=== PATIENT | male | born 1955 | race Caucasian/White ===

== ENCOUNTER 2019-10-04 02:52 | Emergency (ER) | payer MEDICARE, MEDICAID, SELFPAY ==
[2019-10-04 02:54] VITALS: BP 113/72; PULSE 98; RESP 28; TEMP 36.5; O2SAT 97; BMI 22.8
--- NOTE | 2019-10-04 03:12 | ED_ITS ---
Entered by Emiliana Quezada, acting as scribe for Nilesh Saenz DO Oct 04, 2019 02:52 HPI - SOB/Dyspnea General: Chief Complaint: Shortness of Breath/Dyspnea Stated Complaint: Resp Distress Time Seen by Provider: 10/04/19 03:12 Source: patient and EMS Mode of arrival: EMS History of Present Illness: HPI Narrative: 63 y/o male presents to the ED with complaint of SOB. Pt states he has had a cough and increased difficulty breathing. Pt states he does not normally wear oxygen at home, but he is requiring it tonight. MD elicited complaint: shortness of breath and cough Onset (ago): hour(s) (1-2) Timing: constant Severity: mild Associated symptoms: Reports orthopnea; Deny abdominal pain, chest pain, dizziness, nausea, palpitations or vomiting Review of Systems Const: Denies: chills Eyes: Denies: change in vision or blurry vision ENMT: Denies: painful swallowing, swelling of lips/tongue, bleeding gums, dental pain, Change in hearing, nose bleeds, post nasal drip or facial/sinus agustina n Card: Reports: shortness of breath when lying down; Denies: chest pain, palpitations or irregular heart rhythm Resp: Reports: shortness of breath and productive cough GI: Denies: abdominal pain, nausea, vomiting, rectal pain, blood in stool or black tarry stool : Denies: difficulty urinating, painful urination, urinary frequency, urinary urgency or blood in urine Musc: Denies: neck pain, back pain, redness or joint warmth Skin/Breast: Denies: rash, itching or redness Neuro: Denies: headache, dizziness, vertigo, confusion or seizure-like activity Psych: Denies: anxiety, visual hallucinations or auditory hallucinations PFSH ED PFSH: Statuses (acute, chronic, etc) shown below reflect problem list status as previously entered and may not be historically accurate Social History Smoking and tobacco status: current every day smoker Physical Exam Const: COMMON NORMALS: alert GENERAL APPEARANCE: well developed ORIENTATION/CONSCIOUSNESS: Yes awake, Yes oriented to person, Yes oriented to place and Yes oriented to time HENMT: COMMON NORMALS: normocephalic, external ears normal, external nose normal and moist oral mucous membranes HEAD & SCALP: normocephalic; no scalp tenderness FACE & SINUS: normal facial exam NOSE: external nose normal and no nasal discharge EXTERNAL EAR: Yes external ears normal MOUTH: tongue normal TEETH & GINGIVA: no abnormal tooth and associated gingiva THROAT: posterior oropharynx normal; no peritonsillar mass Eye: COMMON NORMALS: PERRL, EOMs intact bilaterally and conjunctivae normal EYELID: eyelids normal CONJUNCTIVA: Yes conjunctivae normal PUPIL: Yes PER RL Neck/C-Spine: COMMON NORMALS: full ROM GENERAL: No tracheal deviation CERVICAL SPINE: Yes normal cervical lordosis, No cervical spine tenderness, No step off deformity, No paracervical muscle tenderness and No paracervical muscle spasm Chest: COMMONS NORMALS: inspection of chest normal CHEST: Yes symmetrical chest wall rise and No tenderness Resp: EFFORT & INSPECTION: No tachypneic, No respiratory distress, No retractions, No uses accessory muscles and No tracheal deviation AUSCULTATION: rhonchi and wheezes Cardio: COMMON NORMALS: regular rate and regular rhythm RATE: regular rate RHYTHM: regular rhythm HEART SOUNDS: no murmurs PERIPHERAL PULSES: radial pulses present GI: INSPECTION: No abdominal distension AUSCULTATION: No hyperactive bowel sounds and No hypoactive bowel sounds PALPATION: No tender, No guarding and No rigid PERCUSSION: no dullness to percussion and no tympanic to percussion : COMMON NORMALS: Yes no CVA tenderness BLADDER/KIDNEY EXAM: Yes no CVA tenderness Back/Pelvis: COMMON NORMALS: no CVA tenderness PELVIS: Yes no pain with anterior-posterior compression and Yes no pain with lateral compression Extremity: NARRATIVE EXTREMITY EXAM: Bilateral LE amputee Neuro: SENSORIUM/ORIENTATION: Yes alert, Yes oriented to person, Yes oriented to place and Yes oriented to time Psych: COMMON NORMALS: mental status grossly normal and speech normal SPEECH: Yes normal speech Skin: COMMON NORMALS: no rashes or lesions noted GENERAL SKIN EXAM: no rashes or lesions noted Course ED course: This patient presents from the senior living with shortness of breath. He was wheezing on exam. He was given a breathing treatment, steroid, and Lasix. He has begun to diurese. His BNP is elevated. His chest x-ray shows some pulmonary edema. His oxygen was turned off, as he does not usually use oxygen, and he has maintained his saturations. He is awake and talking I do not see evidence of pneumonia. He will be discharged back to the senior living with an increased dose of Lasix x5 doses. Vital Signs: Vital signs: Vital Signs Temperature 97.7 F 10/04/19 02:54 Pulse Rate 92 10/04/19 06:48 Respiratory Rate 21 H 10/04/19 04:01 Blood Pressure 113/72 10/04/19 06:48 Pulse Oximetry 96 10/04/19 06:48 MDM - SOB/Dyspnea Lab Data: Labs: Lab Results 10/04/19 10/04/19 10/04/19 Range/Units 03:12 03:12 03:12 WBC 12.9 H (4.0-10.0) 10^3/ uL RBC 4.00 L (4.1-5.3) 10^6/u L Hgb 11.6 L (11.7-16.6) g/dL Hct 37.7 L (42.0-52.0) % MCV 94.3 H (80-94) fL MCH 29.0 (28.0-34.0) pg MCHC 30.8 (30.0-36.0) g/dL RDW 14.1 (12.1-15.1) % Plt Count 264 (130-400) 10^3/c mm MPV 9.9 (7.4-10.4) fL Neut % (Auto) 72.5 % Lymph % (Auto) 14.2 % [place] % (Auto) 8.0 % Eos % (Auto) 4.0 % Baso % (Auto) 0.8 % Neut # (Auto) 9.4 H (1.8-7.7) 10^3/u L Lymph # (Auto) 1.8 (0.8-4.8) 10^3/u L [place] # (Auto) 1.0 H (0.2-0.9) 10^3/u L Eos # (Auto) 0.5 (0.0-0.8) 10^3/u L Baso # (Auto) 0.1 (0.0-0.1) 10^3/u L Nucleated RBC % (a uto) 0 % Nucleated RBCs # 0.0 /100WBC Specimen Type Sample Site ABG pH (7.35-7.45) ABG pCO2 (35-45) mmHg ABG pO2 (80.0-100.0) mmH g ABG HCO3 (22-26) mmol/L ABG Base Excess (-2.0-2.0) mmol/ L Pop Test Hematocrit (42-52) % Hgb O2 Saturation (95-100) % Carboxyhemoglobin (0.4-20.1) %THgb Methemoglobin (0.4-1.5) % Total Hemoglobin (14-18) g/dL O2 Liters/Min % Floral Assistant ID Sodium 140 (136-145) mmol/L Potassium 4.6 (3.5-5.1) mmol/L Chloride 103 (98-107) mmol/L Carbon Dioxide 26 (22-29) mmol/L Anion Gap 15.6 (5-19) BUN 30 H (8-23) mg/dL Creatinine 1.6 H (0.7-1.2) mg/dL GFR Calculation 43.9 L (90-130) mL/min Glucose 159 H (74-106) mg/dL Lactate 1.0 (0.5-2.2) mmol/L Calcium 9.0 (8.8-10.2) mg/Dl Total Bilirubin 0.2 (0.15-1.2) mg/dL AST 14 (0-40) U/L ALT 17 (0-41) U/L Alkaline Phosphata se 113 (40-130) IU/L Troponin T Baselin e (0-15) ng/mL Troponin T 120 Min [place] (0-15) ng/mL Delta Troponin T (0-10) ABS# NT-Pro-B Natriuret Pep 2987 H (0-125) pg/mL Total Protein 6.6 (6.6-8.7) g/dL Albumin 4.0 (3.5-5.2) g/dL Globulin 2.6 (1.3-4.6) g/dL Influenza Type A A g (Negative) POC Influenza B Ag (Negative) 10/04/19 10/04/19 10/04/19 Range/Units 03:12 03:50 04:03 WBC (4.0-10.0) 10^3/ uL RBC (4.1-5.3) 10^6/u L Hgb (11.7-16.6) g/dL Hct (42.0-52.0) % MCV (80-94) fL MCH (28.0-34.0) pg MCHC (30.0-36.0) g/dL RDW (12.1-15.1) % Plt Count (130-400) 10^3/c mm MPV (7.4-10.4) fL Neut % (Auto) % Lymph % (Auto) % [place] % (Auto) % Eos % (Auto) % Baso % (Auto) % Neut # (Auto) (1.8-7.7) 10^3/u L Lymph # (Auto) (0.8-4.8) 10^3/u L [place] # (Auto) (0.2-0.9) 10^3/u L Eos # (Auto) (0.0-0.8) 10^3/u L Baso # (Auto) (0.0-0.1) 10^3/u L Nucleated RBC % (a uto) % Nucleated RBCs # /100WBC Specimen Type Arterial Sample Site Radial, left ABG pH 7.39 (7.35-7.45) ABG pCO2 42.6 (35-45) mmHg ABG pO2 73.7 L (80.0-100.0) mmH g ABG HCO3 25.6 (22-26) mmol/L ABG Base Excess 0.4 (-2.0-2.0) mmol/ L Pop Test Pos Hematocrit 36.0 L (42-52) % Hgb O2 Saturation 94.1 L (95-100) % Carboxyhemoglobin 0.9 (0.4-20.1) %THgb Methemoglobin 0.1 L (0.4-1.5) % Total Hemoglobin 11.8 L (14-18) g/dL O2 Liters/Min 3.0 % Floral Assistant ID ellpe Sodium (136-145) mmol/L Potassium (3.5-5.1) mmol/L Chloride (98-107) mmol/L Carbon Dioxide (22-29) mmol/L Anion Gap (5-19) BUN (8-23) mg/dL Creatinine (0.7-1.2) mg/dL GFR Calculation (90-130) mL/min Glucose (74-106) mg/dL Lactate (0.5-2.2) mmol/L Calcium (8.8-10.2) mg/Dl Total Bilirubin (0.15-1.2) mg/dL AST (0-40) U/L ALT (0-41) U/L Alkaline Phosphata se (40-130) IU/L Troponin T Baselin e 45 H (0-15) ng/mL Troponin T 120 Min [place] (0-15) ng/mL Delta Troponin T (0-10) ABS# NT-Pro-B Natriuret Pep (0-125) pg/mL Total Protein (6.6-8.7) g/dL Albumin (3.5-5.2) g/dL Globulin (1.3-4.6) g/dL Influenza Type A A g Negative (Negative) POC Influenza B Ag Negative (Negative) 10/04/19 Range/Units 05:50 WBC (4.0-10.0) 10^3/ uL RBC (4.1-5.3) 10^6/u L Hgb (11.7-16.6) g/dL Hct (42.0-52.0) % MCV (80-94) fL MCH (28.0-34.0) pg MCHC (30.0-36.0) g/dL RDW (12.1-15.1) % Plt Count (130-400) 10^3/c mm MPV (7.4-10.4) fL Neut % (Auto) % Lymph % (Auto) % [place] % (Auto) % Eos % (Auto) % Baso % (Auto) % Neut # (Auto) (1.8-7.7) 10^3/u L Lymph # (Auto) (0.8-4.8) 10^3/u L [place] # (Auto) (0.2-0.9) 10^3/u L Eos # (Auto) (0.0-0.8) 10^3/u L Baso # (Auto) (0.0-0.1) 10^3/u L Nucleated RBC % (a uto) % Nucleated RBCs # /100WBC Specimen Type Sample Site ABG pH (7.35-7.45) ABG pCO2 (35-45) mmHg ABG pO2 (80.0-100.0) mmH g ABG HCO3 (22-26) mmol/L ABG Base Excess (-2.0-2.0) mmol/ L Pop Test Hematocrit (42-52) % Hgb O2 Saturation (95-100) % Carboxyhemoglobin (0.4-20.1) %THgb Methemoglobin (0.4-1.5) % Total Hemoglobin (14-18) g/dL O2 Liters/Min % Floral Assistant ID Sodium (136-145) mmol/L Potassium (3.5-5.1) mmol/L Chloride (98-107) mmol/L Carbon Dioxide (22-29) mmol/L Anion Gap (5-19) BUN (8-23) mg/dL Creatinine (0.7-1.2) mg/dL GFR Calculation (90-130) mL/min Glucose (74-106) mg/dL Lactate (0.5-2.2) mmol/L Calcium (8.8-10.2) mg/Dl Total Bilirubin (0.15-1.2) mg/dL AST (0-40) U/L ALT (0-41) U/L Alkaline Phosphata se (40-130) IU/L Troponin T Baselin e (0-15) ng/mL Troponin T 120 Min [place] 44.16 H (0-15) ng/mL Delta Troponin T -0.84 L (0-10) ABS# NT-Pro-B Natriuret Pep (0-125) pg/mL Total Protein (6.6-8.7) g/dL Albumin (3.5-5.2) g/dL Globulin (1.3-4.6) g/dL Influenza Type A A g (Negative) POC Influenza B Ag (Negative) Discharge Plan Discharge Patient Disposition: [facility] Clinical Impression: Congestive heart failure Qualifiers: Heart failure type: systolic Condition: Stable Prescriptions: New furosemide 40 mg tablet 40 mg PO BID Qty: 5 RF: 0 Discharge Orders: Discharge Order (Routine); Ordered 10/04/19 Ordered By: Nilesh Saenz Referrals: India Leger DO [Primary Care Provider] - Discharge Diet: Usual diet Discharge Activity: Resume usual activity Activity Restrictions/Additional Instructions: Increase the Lasix dosage to 40 mg twice daily for 5 doses, then back to 40 mg daily. Return for worsening shortness of breath despite treatment, fever greater than 100, chest discomfort, other concerning symptoms. Coding Level of Care Code ED Team Leader for Chg Fwd The documentation recorded by the Damien wilkins Ashley, accurately reflects the service I personally performed and the decisions made by , Nilesh Saenz, Oct 04, 2019 02:52
--- NOTE | 2019-10-04 03:16 | XRR_ITS ---
PROCEDURE INFORMATION: Exam: XR Chest, 1 View Exam date and time: 10/04/2019 3:44 AM Age: 63 years old Clinical indication: Dyspnea; Additional info: SOB TECHNIQUE: Imaging protocol: XR of the chest Views: 1 view. COMPARISON: CR Chest 2 views* [id number] 02/09/2019 8:53 PM FINDINGS: Lungs: There is indistinctness and mild prominence of the central pulmonary vasculature, increased interstitial opacities present bilaterally, findings suggesting pulmonary edema. There are some strandy opacity seen in the lower hemithoraces bilaterally that likely represents atelectasis. Pleural space: There is blunting of the right costophrenic recess possibly secondary to a small right pleural effusion. Heart/Mediastinum: Unremarkable. No cardiomegaly. Bones/joints: Unremarkable. XR/XR chest 1V portable [id number] IMPRESSION: 1. Indistinctness of the pulmonary vasculature and increased linear opacities, findings suggesting pulmonary edema. 2. Probable small right pleural effusion 3. Strandy opacities in the lower hemithoraces likely represents atelectasis.
--- NOTE | 2019-10-04 03:17 | ECG_ITS ---
Measurements Intervals [place] Rate: 87 P: 65 KS: 182 QRS: -1 QRSD: 93 T: 106 QT: 382 QTc: 461 SINUS RHYTHM POSSIBLE ANTERIOR MYOCARDIAL INFARCTION , OF INDETERMINATE AGE [30 ms Q WAVE IN V3/V4, OR R < 0.2 mV IN V4] INFERIOR MYOCARDIAL INFARCTION , OF INDETERMINATE AGE [40+ ms Q WAVE AND/OR ST/T ABNORMALITY IN II/aVF] Compared to ECG 05/26/2019 16:30:04 No significant changes Electronically Signed On 10-04-2019 19:17:31 INTERNET APPLICATION DEVELOPER by Rosa Wiggins M.D. [email or web address]
[2019-10-04 03:42] VITALS: PULSE 90; RESP 22; O2SAT 97
[2019-10-04] MEDS: ipratropium-albuterol 3 mL Neb INHALATION (03:42)
[2019-10-04 03:45] VITALS: PULSE 91; RESP 20; O2SAT 94
[2019-10-04 03:51] LABS: Troponin(5th) Baseline 45 ng/mL (0-15)
[2019-10-04 03:52] LABS: Basophils # 0.1 10^3/uL (0.0-0.1); Basophils % 0.8 %; Eosinophils # 0.5 10^3/uL (0.0-0.8); Hematocrit 37.7 % (42.0-52.0); Hemoglobin 11.6 g/dL (11.7-16.6); Lymphocytes # 1.8 10^3/uL (0.8-4.8); Lymphocytes % 14.2 %; Mean Corpuscular HGB Conc 30.8 g/dL (30.0-36.0); Mean Corpuscular Volume 94.3 fL (80-94); Mean Platelet Volume 9.9 fL (7.4-10.4); Neutrophils # 9.4 10^3/uL (1.8-7.7); Neutrophils % 72.5 %; Nucleated Red Blood Cells % 0 %; Platelet Count 264 10^3/cmm (130-400); Red Cell Distribution Width 14.1 % (12.1-15.1); White Blood Count 12.9 10^3/uL (4.0-10.0)
[2019-10-04 03:59] LABS: Alanine Aminotransferase 17 U/L (0-41); Alkaline Phosphatase 113 IU/L (40-130); Anion Gap 15.6 (5-19); Aspartate Amino Transferase 14 U/L (0-40); Blood Urea Nitrogen 30 mg/dL (8-23); Carbon Dioxide 26 mmol/L (22-29); Chloride 103 mmol/L (98-107); Globulin 2.6 g/dL (1.3-4.6); Glomerular Filtration Rate 43.9 mL/min (90-130); Glucose 159 mg/dL (74-106); NT Pro B Type Natriuretic Pept 2987 pg/mL (0-125); Potassium 4.6 mmol/L (3.5-5.1); Sodium 140 mmol/L (136-145); Total Bilirubin 0.2 mg/dL (0.15-1.2); Total Protein 6.6 g/dL (6.6-8.7)
[2019-10-04 04:00] LABS: ABG PCO2 42.6 mmHg (35-45); ABG PH Result 7.39 (7.35-7.45); Base Excess ABG 0.4 mmol/L (-2.0-2.0); Blood Gas Allen Test Pos; Blood Gas Sample Site Radial, left; Blood Gas Sample Type Arterial; Carboxyhemoglobin 0.9 %THgb (0.4-20.1); HCO3 ABG 25.6 mmol/L (22-26); HGB O2 Sat 94.1 % (95-100); Methemoglobin 0.1 % (0.4-1.5); PO2 ABG 73.7 mmHg (80.0-100.0); Total Hemoglobin 11.8 g/dL (14-18)
[2019-10-04] MEDS: FUROsemide 10 mg/mL SDV 10mL 60 MG IVP (04:00)
[2019-10-04 04:01] VITALS: BP 113/72; PULSE 90; RESP 21
[2019-10-04 04:28] LABS: Influenza A by IFA Negative (Negative); Influenza B by IFA Negative (Negative)
[2019-10-04 06:15] LABS: Troponin 5 2HR 44.16 ng/mL (0-15)
[2019-10-04 06:43] LABS: Troponin 5 2HR Delta -0.84 ABS# (0-10)
[2019-10-04 06:48] VITALS: BP 113/72; PULSE 92; O2SAT 96
[2019-10-04 07:36] VITALS: BP 113/72; PULSE 89; O2SAT 94
--- NOTE | 2019-10-04 19:17 | ECG_ITS ---
Measurements Intervals [place] Rate: 87 P: 65 ID: [id number] QRS: -1 QRSD: 93 T: 106 QT: 382 QTc: 461 SINUS RHYTHM POSSIBLE ANTERIOR MYOCARDIAL INFARCTION , OF INDETERMINATE AGE [30 ms Q WAVE IN V3/V4, OR R < 0.2 mV IN V4] INFERIOR MYOCARDIAL INFARCTION , OF INDETERMINATE AGE [40+ ms Q WAVE AND/OR ST/T ABNORMALITY IN II/aVF] Compared to ECG 05/26/2019 16:30:04 No significant changes [id number]
[2019-10-07 15:14] LABS: Anion Gap 16.6 (5-19); Blood Urea Nitrogen 42 mg/dL (8-23); Calcium 9.6 mg/Dl (8.8-10.2); Carbon Dioxide 29 mmol/L (22-29); Chloride 100 mmol/L (98-107); Glomerular Filtration Rate 40.9 mL/min (90-130); Glucose 67 mg/dL (74-106); Potassium 4.6 mmol/L (3.5-5.1); Sodium 141 mmol/L (136-145)
[2019-10-08 18:36] LABS: Oxygen Device NC
== END 2019-10-04 08:33 | disposition skilled nursing facility (03) ==
PROVIDERS: Emergency Provider Emergency Medicine; Family Provider Family Medicine; PCP Family Medicine
DX: I50.20 Unspecified systolic (congestive) heart failure (principal); F17.210 Nicotine dependence, cigarettes, uncomplicated
CPT/HCPCS: 36415; 36600; 71045; 80053; 82805; 83605; 83880; 84484; 85025; 87040; 87205; 87804; 93005; 94640; 96374; 96375; 99282; J1940; J2930

== ENCOUNTER 2019-10-07 10:09 | Outpatient (RCR) | payer MEDICARE, MEDICAID, SELFPAY | END 2019-10-23 23:59 | disposition home or self-care (01) | LOC: LAB 10:09 | PROVIDERS: Family Provider Family Medicine; PCP Family Medicine; Visit Provider Internal Medicine | DX: N18.9 Chronic kidney disease, unspecified (principal) ==

== ENCOUNTER 2019-10-19 04:48 | Inpatient (IN) | payer MEDICARE, MEDICAID, SELFPAY ==
[2019-10-19] VITALS (13 sets, daily range): BP systolic 110–164; BP diastolic 64–83; PULSE 70–96; RESP 18–28; TEMP 36.3–37.2; O2SAT 94–100; BMI 22.8
--- NOTE | 2019-10-19 04:53 | ED_ITS ---
Entered by Belle Brothers, acting as scribe for Nilesh Saenz DO HPI - SOB/Dyspnea General: Chief Complaint: Shortness of Breath/Dyspnea Stated Complaint: RESPIRATORY DISTRESS Time Seen by Provider: 10/19/19 04:51 Source: patient Mode of arrival: EMS Limitations: no limitations History of Present Illness: HPI Narrative: 63 yo m came to the er from [facility] for shortness of breath. Onset was this morning. Pt states that he has some rattling in his chest. Pt states that he has a productive cough. Pt stated that he has had 2 breathing treatments this morning, and that he feels like there is a weight on his chest. MD elicited complaint: shortness of breath Onset (ago): day(s) (today) Associated symptoms: Reports chest pain; Deny abdominal pain, dizziness, fever(s), nausea, orthopnea, palpitations or vomiting Treatment prior to arrival: other (2 breathing treatments) Related Data: Home oxygen amount: none Review of Systems Const: Denies: fever or chills Eyes: Denies: change in vision or blurry vision ENMT: Denies: painful swallowing, swelling of lips/tongue, bleeding gums, dental pain, Change in hearing, nose bleeds, post nasal drip or facial/sinus pain Card: Reports: chest pain and edema; Denies: palpitations, irregular heart rhythm, shortness of breath on exertion or shortness of breath when lying down Resp: Reports: shortness of breath, productive cough and wheezing; Denies: non-productive cough GI: Reports: rectal pain and blood in stool; Denies: abdominal pain, nausea, vomiting or black tarry stool Skin/Breast: Denies: rash or itching Neuro: Denies: headache, dizziness, vertigo, confusion or seizure-like activity PFSH ED PFSH: Statuses (acute, chronic, etc) shown below reflect problem list status as previously entered and may not be historically accurate Medical History (Updated 10/19/19 @ 06:05 by Alma Huffman MD) Abnormal cystoscopy (Acute) BPH (benign prostatic hyperplasia) (Acute) CKD stage 3 secondary to diabetes (Acute) COPD (chronic obstructive pulmonary disease) (Acute) Coronary artery disease (Acute) Hypertension (Acute) Peripheral vascular disease (Acute) Type 2 diabetes mellitus (Acute) Surgical History (Updated 10/19/19 @ 06:04 by Alma Huffman MD) Coronary angioplasty status (Acute) History of carpal tunnel surgery (Acute) History of hip surgery (Acute) S/P bilateral BKA (below knee amputation) (Acute) S/P right coronary artery (RCA) stent placement (Acute) Family History (Updated 10/19/19 @ 06:05 by Alma Huffman MD) Other CAD (coronary artery disease) Diabetes Social History (Updated 10/19/19 @ 06:05 by Alma Huffman MD) Smoking and tobacco status: current every day smoker Alcohol intake: never Substance/Drug Use: never Housing: Senior [facility] Physical Exam Const: GENERAL APPEARANCE: well developed ORIENTATION/CONSCIOUSNESS: Yes oriented to person, Yes oriented to place and Yes oriented to time HENMT: COMMON NORMALS: normocephalic, external ears normal and external nose normal HEAD & SCALP: normocephalic; no scalp tenderness FACE & SINUS: normal facial exam NOSE: external nose normal and no nasal discharge EXTERNAL EAR: Yes external ears normal MOUTH: tongue normal Eye: COMMON NORMALS: PERRL, EOMs intact bilaterally and conjunctivae normal EYELID: eyelids normal CONJUNCTIVA: Yes conjunctivae normal PUPIL: Yes PERRL Chest: COMMONS NORMALS: inspection of chest normal CHEST: No tenderness Resp: EFFORT & INSPECTION: Yes tachypneic, Yes respiratory distress, No retractions, No uses accessory muscles, Yes audible wheezes and No tracheal deviation AUSCULTATION: no rhonchi, no wheezes and diminished lung sounds Cardio: COMMON NORMALS: regular rate and regular rhythm RATE: regular rate RHYTHM: regular rhythm HEART SOUNDS: no murmurs PERIPHERAL PULSES: radial pulses present GI: INSPECTION: No abdominal distension PALPATION: No guarding and No rigid Neuro: SENSORIUM/ORIENTATION: Yes oriented to person, Yes oriented to place and Yes oriented to time Psych: COMMON NORMALS: mental status grossly normal Skin: COMMON NORMALS: no rashes or lesions noted GENERAL SKIN EXAM: no rashes or lesions noted Course ED course: 63-year-old male here not infrequently with respiratory problems. He has his history of CHF as well as COPD. He was seen a couple of weeks ago and allowed back to the [facility] after improvement with diuresis. He states that he did well until this morning, when he awoke suddenly short of breath. He is requiring oxygen. He is audibly wheezing. He has an infiltrate in the right middle lobe of his lung. He has a significant effusion on the right. He has vascular congestion. He has a leukocytosis of 17 with left shift. He has an elevated BNP. He will be treated for both pneumonia and congestive heart failure exacerbation with hypoxic respiratory failure as an inpatient. Consultations: Consultation #1: andra Vital Signs: Vital signs: Vital Signs Temperature 97.8 F 10/19/19 04:50 Pulse Rate 86 10/19/19 06:06 Respiratory Rate 20 H 10/19/19 06:06 Blood Pressure 121/71 10/19/19 04:50 Pulse Oximetry 96 10/19/19 06:06 MDM - SOB/Dyspnea Lab Data: Labs: Lab Results 10/19/19 10/19/19 Range/Units 05:00 05:00 WBC 17.2 H (4.0-10.0) 10^3/ uL RBC 4.11 (4.1-5.3) 10^6/u L Hgb 11.4 L (11.7-16.6) g/dL Hct 36.3 L (42.0-52.0) % MCV 88.3 (80-94) fL MCH 27.7 L (28.0-34.0) pg MCHC 31.4 (30.0-36.0) g/dL RDW 14.1 (12.1-15.1) % Plt Count 323 (130-400) 10^3/c mm MPV 10.1 (7.4-10.4) fL Neut % (Auto) 80.8 % Lymph % (Auto) 8.8 % [place] % (Auto) 6.6 % Eos % (Auto) 2.6 % Baso % (Auto) 0.6 % Neut # (Auto) 13.9 H (1.8-7.7) 10^3/u L Lymph # (Auto) 1.5 (0.8-4.8) 10^3/u L [place] # (Auto) 1.1 H (0.2-0.9) 10^3/u L Eos # (Auto) 0.5 (0.0-0.8) 10^3/u L Baso # (Auto) 0.1 (0.0-0.1) 10^3/u L Nucleated RBC % (a uto) 0 % Nucleated RBCs # 0.0 /100WBC Sodium 137 (136-145) mmol/L Potassium 5.1 (3.5-5.1) mmol/L Chloride 101 (98-107) mmol/L Carbon Dioxide 24 (22-29) mmol/L Anion Gap 17.1 (5-19) BUN 33 H (8-23) mg/dL Creatinine 1.7 H (0.7-1.2) mg/dL GFR Calculation 40.9 L (90-130) mL/min Glucose 175 H (74-106) mg/dL Calcium 9.7 (8.5-10.5) mg/dL Total Bilirubin 0.3 (0.15-1.2) mg/dL AST 15 (0-40) U/L ALT 17 (0-41) U/L Alkaline Phosphata se 112 (40-130) IU/L NT-Pro-B Natriuret Pep 3057 H (0-125) pg/mL Total Protein 7.5 (6.6-8.7) g/dL Albumin 3.7 (3.5-5.2) g/dL Globulin 3.8 (1.3-4.6) g/dL Discharge Plan Discharge Prescriptions: No Action furosemide 40 mg tablet 40 mg PO BID Qty: 5 RF: 0 Wellbutrin SR 150 mg Tablet Sustained-Release 12 Hr 150 mg PO Q12H RF: 0 ipratropium-albuterol 0.5 mg-3 mg(2.5 mg base)/3 mL Solution For Nebulization 3 ml INHALATION Q4H PRN (Reason: Shortness Of Breath) RF: 0 albuterol sulfate 2.5 mg /3 mL (0.083 %) solution for nebulization 2.5 mg continuous nebulization UNK RF: 0 Plavix 75 mg Tablet 75 mg PO DAILY RF: 0 senna 8.8 mg/5 mL Syrup 8.8 mg PO BID RF: 0 aspirin 81 mg Tablet,Delayed Release (Dr/Ec) 81 mg PO DAILY RF: 0 carvedilol 3.125 mg Tablet 3.125 mg PO BID RF: 0 Celexa 20 mg Tablet 20 mg PO DAILY RF: 0 tamsulosin 0.4 mg Capsule 0.4 mg PO DAILY RF: 0 bisacodyl 10 mg Suppository 10 mg VA DAILY RF: 0 nitroglycerin 0.4 mg Tablet, Sublingual 0.4 mg SUBLINGUAL Q5M PRN (Reason: Chest Pain) RF: 0 budesonide 0.5 mg/2 mL suspension for nebulization 2 ml inhalation UNK RF: 0 Miralax 17 gram/dose Powder 17 g PO DAILY RF: 0 lisinopril 2.5 mg Tablet 2.5 mg PO DAILY RF: 0 Pneumovax 23 25 mcg/0.5 mL Solution 25 mcg IM UNK RF: 0 loratadine 10 mg Tablet 10 mg PO DAILY RF: 0 Humalog KwikPen Insulin 100 unit/mL Insulin Pen See Rx Instructions .ROUTE .COMPLEX RF: 0 Crestor 20 mg Tablet 20 mg PO DAILY RF: 0 Magtab 84 mg Tablet Extended Release 84 mg PO DAILY RF: 0 oseltamivir 30 mg Capsule 30 mg PO DAILY RF: 0 Prevnar 13 (PF) 0.5 mL Syringe 0.5 ml IM UNK RF: 0 potassium chloride 20 mEq Tablet Extended Release 20 meq PO DAILY RF: 0 glucagon HCl 1 mg Recon Soln 1 mg IM Q20M PRN (Reason: Hypoglycemia) RF: 0 Lantus U-100 Insulin 100 unit pen injector See Rx Instructions .ROUTE .COMPLEX RF: 0 acetaminophen 325 mg 325 mg PO Q4-5H RF: 0 Coding Level of Care Code ED Duct Layer Supervisor for Chg Fwd The documentation recorded by the Zev wilkins Stephanie Lyn, accurately reflects the service I personally performed and the decisions made by Dany morocho Jeremy John, DO Oct 19, 2019 04:48
--- NOTE | 2019-10-19 04:55 | XRR_ITS ---
PROCEDURE INFORMATION: Exam: XR Chest, 1 View Exam date and time: 10/19/2019 5:31 AM Age: 63 years old Clinical indication: Shortness of breath; Additional info: SOB TECHNIQUE: Imaging protocol: XR of the chest Views: 1 view. COMPARISON: CR XR chest 1V portable [id number] 10/04/2019 3:27 AM FINDINGS: Lungs: moderate right pleural effusion with right basilar consolidation versus atelectasis. Pleural space: Unremarkable. No pleural effusion. No pneumothorax. Heart/Mediastinum: Cardiomegaly. Bones/joints: Unremarkable. XR/XR chest 1V portable [id number] IMPRESSION: Cardiomegaly. Prominence of the pulmonary vasculature centrally. Prominence of the interstitium. moderate right pleural effusion with right basilar consolidation versus atelectasis.
--- NOTE | 2019-10-19 05:16 | ECG_ITS ---
Measurements Intervals [place] Rate: 85 P: 71 HI: 176 QRS: 11 QRSD: 130 T: 89 QT: 382 QTc: 455 SINUS RHYTHM POSSIBLE ANTERIOR MYOCARDIAL INFARCTION , OF INDETERMINATE AGE [30 ms Q WAVE IN V3/V4, OR R < 0.2 mV IN V4] INFERIOR MYOCARDIAL INFARCTION , OF INDETERMINATE AGE [40+ ms Q WAVE AND/OR ST/T ABNORMALITY IN II/aVF] Compared to ECG 10/04/2019 04:09:54 No significant changes Electronically Signed On 10-19-2019 17:51:42 LIQUEFACTION AND REGASIFICATION HELPER by Alma Siddiqui M.D. [id number]
[2019-10-19 05:25] LABS: Basophils # 0.1 10^3/uL (0.0-0.1); Basophils % 0.6 %; Eosinophils # 0.5 10^3/uL (0.0-0.8); Eosinophils % 2.6 %; Hematocrit 36.3 % (42.0-52.0); Hemoglobin 11.4 g/dL (11.7-16.6); Lymphocytes # 1.5 10^3/uL (0.8-4.8); Lymphocytes % 8.8 %; Mean Corpuscular HGB Conc 31.4 g/dL (30.0-36.0); Mean Corpuscular Hemoglobin 27.7 pg (28.0-34.0); Mean Corpuscular Volume 88.3 fL (80-94); Mean Platelet Volume 10.1 fL (7.4-10.4); Monocytes # 1.1 10^3/uL (0.2-0.9); Monocytes % 6.6 %; Neutrophils # 13.9 10^3/uL (1.8-7.7); Neutrophils % 80.8 %; Nucleated Red Blood Cells % 0 %; Platelet Count 323 10^3/cmm (130-400); Red Blood Count 4.11 10^6/uL (4.1-5.3); Red Cell Distribution Width 14.1 % (12.1-15.1); White Blood Count 17.2 10^3/uL (4.0-10.0)
[2019-10-19 05:42] LABS: Alanine Aminotransferase 17 U/L (0-41); Albumin Level 3.7 g/dL (3.5-5.2); Alkaline Phosphatase 112 IU/L (40-130); Anion Gap 17.1 (5-19); Aspartate Amino Transferase 15 U/L (0-40); Blood Urea Nitrogen 33 mg/dL (8-23); Calcium 9.7 mg/dL (8.5-10.5); Carbon Dioxide 24 mmol/L (22-29); Chloride 101 mmol/L (98-107); Globulin 3.8 g/dL (1.3-4.6); Glomerular Filtration Rate 40.9 mL/min (90-130); Glucose 175 mg/dL (74-106); NT Pro B Type Natriuretic Pept 3057 pg/mL (0-125); Potassium 5.1 mmol/L (3.5-5.1); Sodium 137 mmol/L (136-145); Total Bilirubin 0.3 mg/dL (0.15-1.2); Total Protein 7.5 g/dL (6.6-8.7)
--- NOTE | 2019-10-19 05:59 | P.HP_ITS ---
Providers/Chief Complaint Primary Care Provider: India Leger DO Chief Complaint: RESPIRATORY DISTRESS History of Present Illness Tsahi Cole is a 63 year old male who carries diagnosis of systolic congestive heart failure EF 36%, not a candidate of AICD, type II diabetic, bilateral BKA, resident of [place], came in with chief complaint of shortness of breath. Patient is stating he was at his usual health, did not experience any runny nose, runny eyes, flulike symptoms, shortness of breath before having this orthopnea and PND at 3:30 AM today. He has been having chest congestion with cough and is bringing white to yellow sputum with coughing. He has not noticed any blood. He is smoking half a pack a day. He tries to watch his fluid and sodium intake, he has been taking Lasix every day. He also noticed some chest pressure but would not call it chest pain. Multiple breathing treatments did not help him at [place] and he was sent to ER for further evaluation, diagnostics in ER showed congestive heart failure exacerbation due to right middle lobe pneumonia, he was started on Levaquin and Zosyn. Blood culture, sputum culture, urine antigens were ordered, I am admitting to ICU because his blood pressure is soft. Patient meets sepsis criteria with leukocytosis, tachypnea and low blood pressure, not a candidate to get fluid because of systolic congestive heart failure EF 36% and active heart failure, antibiotiCS have been initiated Currently saturating well on 3 to nasal cannula, systolic blood pressure was 90/56MMHG, he has mild conversational dyspnea, high risk for intubation, patient wants to stay DNR/DNI I have asked him about goals of care twice in front of ER nurse Review of Systems Const: Reports: body aches, change in appetite and change in weight; Denies: fever or chills Eyes: Denies: change in vision ENMT: Denies: throat pain, uvular edema, painful swallowing or hoarseness Card: Reports: chest pain; Denies: palpitations, irregular heart rhythm, edema or swelling of feet/ankles Resp: Reports: shortness of breath, productive cough, wheezing and change in phlegm color GI: Denies: abdominal pain, nausea or vomiting : Denies: flank pain or difficulty urinating Musc: Denies: neck pain or back pain Skin/Breast: Reports: redness Neuro: Denies: headache Psych: Reports: anxiety Endo: Denies: excessive urination, excessive thirst or excessive sweating Sahvin/Lymph: Denies: easy bruising All/Imm: Denies: hives Medications/Allergies Home Medications Medication Instructions Recorded Confirmed Last Taken Type Lantus U-100 Insulin See Rx Instructions .ROUTE .COMPLEX 10/19/19 10/19/19 Unknown History acetaminophen 325 mg PO Q4-5H 10/19/19 10/19/19 Unknown History albuterol sulfate 2.5 mg CONTINUOUS NEBULIZATION [facility] 10/19/19 10/19/19 Unknown History aspirin 81 mg PO DAILY 10/19/19 10/19/19 Unknown History bisacodyl 10 mg HI DAILY 10/19/19 10/19/19 Unknown History budesonide 2 ml INHALATION [facility] 10/19/19 10/19/19 Unknown History bupropion HCl [Wellbutrin SR] 150 mg PO Q12H 10/19/19 10/19/19 Unknown History carvedilol 3.125 mg PO BID 10/19/19 10/19/19 Unknown History citalopram [Celexa] 20 mg PO DAILY 10/19/19 10/19/19 Unknown History clopidogrel [Plavix] 75 mg PO DAILY 10/19/19 10/19/19 Unknown History glucagon HCl 1 mg IM Q20M PRN 10/19/19 10/19/19 Unknown History insulin lispro [Humalog KwikPen See Rx Instructions .ROUTE .COMPLEX 10/19/19 10/19/19 Unknown History Insulin] ipratropium-albuterol 3 ml INHALATION Q4H PRN 10/19/19 10/19/19 Unknown History lisinopril 2.5 mg PO DAILY 10/19/19 10/19/19 Unknown History loratadine 10 mg PO DAILY 10/19/19 10/19/19 Unknown History magnesium L-lactate [Magtab] 84 mg PO DAILY 10/19/19 10/19/19 Unknown History nitroglycerin 0.4 mg SUBLINGUAL Q5M PRN 10/19/19 10/19/19 Unknown History oseltamivir 30 mg PO DAILY 10/19/19 10/19/19 Unknown History pneumoc 13-ruby conj-dip cr(PF) 0.5 ml IM [facility] 10/19/19 10/19/19 Unknown History [Prevnar 13 (PF)] pneumococcal 23-ruby ps vaccine 25 mcg IM [facility] 10/19/19 10/19/19 Unknown History [Pneumovax 23] polyethylene glycol 3350 [Miralax] 17 g PO DAILY 10/19/19 10/19/19 Unknown History potassium chloride 20 meq PO DAILY 10/19/19 10/19/19 Unknown History rosuvastatin [Crestor] 20 mg PO DAILY 10/19/19 10/19/19 Unknown History senna 8.8 mg PO BID 10/19/19 10/19/19 Unknown History tamsulosin 0.4 mg PO DAILY 10/19/19 10/19/19 Unknown History Allergies Allergy/AdvReac Type Severity Reaction Status Date / Time tramadol Allergy ADR-Vomitin Verified 10/04/19 03:03 g PFSH Acute PFSH: Statuses (acute, chronic, etc) shown below reflect problem list status as previously entered and may not be historically accurate Medical History (Updated 10/19/19 @ 07:12 by Alma Huffman MD) Abnormal cystoscopy (Acute) BPH (benign prostatic hyperplasia) (Acute) CKD stage 3 secondary to diabetes (Acute) COPD (chronic obstructive pulmonary disease) (Acute) Coronary artery disease (Acute) Hypertension (Acute) Peripheral vascular disease (Acute) Type 2 diabetes mellitus (Acute) Surgical History (Updated 10/19/19 @ 06:04 by Alma Huffman MD) Coronary angioplasty status (Acute) History of carpal tunnel surgery (Acute) History of hip surgery (Acute) S/P bilateral BKA (below knee amputation) (Acute) S/P right coronary artery (RCA) stent placement (Acute) Family History (Updated 10/19/19 @ 06:05 by Alma Huffman MD) Other CAD (coronary artery disease) Diabetes Social History (Updated 10/19/19 @ 06:05 by Alma Huffman MD) Smoking and tobacco status: current every day smoker Alcohol intake: never Substance/Drug Use: never Housing: [facility] Vitals/I&O/Wt Last Vital Signs Temp 97.8 F 10/19/19 04:50 Pulse 96 10/19/19 04:50 Resp 20 H 10/19/19 04:50 BP 121/71 10/19/19 04:50 Pulse Ox 94 10/19/19 04:50 Weight last 48 hrs Weight 68.039 kg Physical Exam Narrative: EXAM NARRATIVE: Patient seems to be in distress He gets multiple bouts of cough, he gets facial redness when he is coughing However saturating well on 3 to nasal cannula He is not using his respiratory sensory muscles for now Lung auscultation shows bilateral wheezing with crackles, adventitious sounds in right lung S1, S2 with positive JVD Abdomen soft nontender nondistended bowel sounds present Lower extremities bilateral BKA Patient seems very anxious Skin does not show any signs of ischemia gangrene or ulcer Patient has nail urdu on his fingers Flat affect Unkempt Data : 10/19/19 05:00 10/19/19 05:00 A&P Assessment and plan (1) CHF exacerbation: Status: Acute Code(s): I50.9 - Heart failure, unspecified (2) Right middle lobe pneumonia: Status: Acute Code(s): J18.9 - Pneumonia, unspecified organism (3) DNR (do not resuscitate): Status: Acute Code(s): Z66 - Do not resuscitate Additional A&P Information Sepsis secondary to right middle lobe pneumonia, Will treat him for hospital-acquired pneumonia has received IV antibiotics in last 90 days, he was admitted in May with pneumonia Sepsis criteria met with tachypnea, leukocytosis, hypotension He was given Levaquin in ED, I would add vancomycin with Zosyn and Levaquin DuoNeb treatment, prednisone Not a candidate to get fluid for sepsis because of active fluid overload Urine antigens, blood and sputum culture ordered Systolic congestive heart failure exacerbation due to pneumonia, ischemic cardiomyopathy, grade 3 diastolic dysfunction High BNP with active clinical fluid overloaded state, I would be judicious in use of diuretics because of low blood pressure, at residential he is taking Lasix 40 mg twice a day, I would use IV 60 mg for now Not a candidate for AICD He has bilateral BKA History of coronary artery disease with stent placement in RCA Chronic kidney disease with creatinine baseline around 1.5-1.6: Hold nephrotoxic agents, antibiotics to be renally dosed Type 2 diabetes: Moderate sliding scale with consistent carbohydrate diet Coronary disease status post stent RCA 2016 Current troponin not significantly high, EKG does not show ischemic changes, pat ient is asymptomatic at the moment BPH: Continue tamsulosin Peripheral vascular disease status post bilateral BKA no active complaints Patient is high risk for septic shock current blood pressure is soft I would admit him to ICU with closeR monitoring, Goals of care has been discussed in ER in front of ER nurse patient wants to stay DNR and DNI and understand the consequences DVT prophylaxis: Heparin Attestations Medical Necessity Statement*: Needs more than 2 midnights continued ICU stay for closer monitoring, at risk of septic shock, Time Spent in Patient Care: 50 Coding Level of Care Code Acute Car Hop for g Fwd Diagnoses CHF exacerbation I50.9 Right middle lobe pneumonia J18.9 DNR (do not resuscitate) Z66
[2019-10-19] MEDS: ipratropium-albuterol 3 mL Neb INHALATION ×4 (06:03→20:37)
[2019-10-19] MEDS: levofloxacin-dextrose 5 % 750 MG/150 ML PREMIX 150 MG IV (06:40)
[2019-10-19 07:29] LABS: Glucose Point of Care 188 mg/dL (70-110)
--- NOTE | 2019-10-19 07:40 | PC.PHAR ---
Vancomycin dosing per pharmacy 1250mg Q24h Patient: Floor: Age: 63 yo Serum creatinine: 1.7 mg/dL Height: 67.7 Inches Weight (kg): 68 IBW (kg): 67.71 Dosing wt(kg): 68 Estimated Creatinine clearance (ml/min): 42.6 CRCL method: Cockcroft and Gault using ibw(default). Drug selected: Vancomycin Loading dose (mg): Vd (liters): 47.6 (factor used: 0.7 L/kg) Jose (hr-1): 0.040 Half life (hrs): 17.33 CLvanco= 1.904 L/hr Recommended dose: 1250 mg Interval: 24 hrs Infusion time (hrs): 1 Predicted peak (mcg/mL): 41.7 Predicted trough (mcg/mL): 16.62 Total body weight is being used for vancomycin dosing. Recommendations: Give Vancomycin 1250 mg q 24 hrs with an expected Cpeak of 41.7 mcg/ml and an expected Ctrough of 16.62 mcg/ml
[2019-10-19 08:57] LABS: Lactic Acid 0.9 mmol/L (0.5-2.2)
[2019-10-19] MEDS: FUROsemide 10 mg/mL SDV 10mL 60 MG IVP (08:59)
[2019-10-19] MEDS: heparin 5,000 unit/mL INJ 1 mL 5000 UNIT SUBCUT ×3 (09:00→22:52)
[2019-10-19] MEDS: magnesium lactate 84 mg Tablet PO (09:03)
[2019-10-19] MEDS: citalopram 20 mg Tablet PO (09:04)
[2019-10-19] MEDS: predniSONE 20 mg Tablet 40 MG PO (09:04)
[2019-10-19] MEDS: aspirin 81 mg EC Tablet PO (09:04)
[2019-10-19] MEDS: acetaminophen 325 mg Tablet PO ×4 (09:04→20:45)
[2019-10-19] MEDS: carvedilol 3.125 mg Tablet PO ×2 (09:04→18:34)
[2019-10-19] MEDS: tamsulosin 0.4 mg Capsule PO (09:04)
[2019-10-19] MEDS: clopidogrel 75 mg Tablet PO (09:04)
[2019-10-19] MEDS: atorvastatin 40 mg Tablet 80 MG PO (09:04)
[2019-10-19] MEDS: buPROPion SR (12 HR) 150 mg Tablet PO ×2 (09:05→18:34)
[2019-10-19] MEDS: piperacillin-tazobactam 3.375 GM in sodium chloride 0.9% (plus) 50 ML IV ×2 (09:07→16:24)
[2019-10-19 11:12] LABS: Influenza A by IFA Negative (Negative); Influenza B by IFA Negative (Negative)
[2019-10-19 12:06] LABS: Glucose Point of Care 253 mg/dL (70-110)
--- NOTE | 2019-10-19 12:22 | PC.CHAP ---
Pastoral Care Encounter/Spiritual Assessment Type of Contact [] Declined supervisor stage carpentry visit [] Patient/Family/Request visit [] Outpatient visit [] Follow-up visit [] Physician referral [] Code/Alert [] Routine visit [] Staff referral [] Actively dying [] Patient sleeping [] Family support [] [] Out of room [] Palliative care [] [] Receiving care in room [] Pre-surgical visit [] Trauma [] Long length of stay [] ICU visit [] Other: Relational/Emotional Strength [x] Patient feels connected with others/family/visitors/staff [] Distress [] Loneliness/isolation [] Abandonment Spirituality of Patient [x] Person of [place] [] Attends Baptism of their [place] [x] Believes in Prayer [x] Reads Bible or Yazidi materials [] There are Spiritual issues to be addressed Guide Cruise Interventions [x] Prayer [x] Active listening [x] Non-anxious presence [x] Spiritual/emotional support [] Crisis/trauma care [] Spiritual counseling [] Bereavement support [] Provided bereavement packet [] Provided Bible/devotional materials [] Provided toy/stuffed animal, coloring book to patient or family member [x] Completed spiritual assessment [] Provided Communion [] Anointing/[place] [] Salvation [] Other: Impact on Illness or Injury [] Angry [] Fearful [] Anxious [] Often cries [] Exhaustion [] Unable to work [] Unable to attend hinduism [] Unable to walk/stand [] Unable to read [] Unable to drive [] Unable to eat/drink [] Unable to sleep [] Unable to be with family [] Other: Summary Patient disabled, retired.Patient pleasent and easy to talk to but tires easily. Difficulty breathing due to pneumonia diagnoses. Time spent with patient 15 min.
--- NOTE | 2019-10-19 17:02 | PC.NURSE ---
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 Nurse assessed patient. Patient saturations are 100% on 2L NC, respirations 24 at this time. Patient resting comfortably. Nurse will continue to monitor.
[2019-10-19 17:10] LABS: Glucose Point of Care 279 mg/dL (70-110)
--- NOTE | 2019-10-19 18:21 | PC.RESP ---
Patient given Pulmonary Rehab/Smoking Cessation information.
--- NOTE | 2019-10-19 19:33 | P.PN_ITS ---
Subjective Subjective: Interval history: He reports he is feeling better compared to admission. He is still coughing, although was not able to produce a sputum sample. Vitals/I&O/Wt Last Vital Signs Temp 98.0 F 10/19/19 16:00 Pulse 78 10/19/19 16:00 Resp 28 H 10/19/19 16:00 BP 135/83 10/19/19 16:00 Pulse Ox 100 10/19/19 16:00 10/19/19 10/19/19 10/19/19 06:59 14:59 22:59 Intake Total 1249.167 / 1249.167 241.25 / 1490.417 Output Total 975 / 975 250 / 1225 Balance 274.167 / 274.167 -8.75 / 265.417 Weight last 48 hrs Weight 68.039 kg Physical Exam Const: COMMON NORMALS: no apparent distress and oriented x3 ORIENTATION/CONSCIOUSNESS: Yes other (Effeminite appearance.) HENMT: COMMON NORMALS: oropharynx normal Neck/C-Spine: COMMON NORMALS: no JVD Resp: AUSCULTATION: rhonchi and diminished lung sounds Cardio: COMMON NORMALS: no JVD, regular rhythm, S1 normal heart sound, S2 normal heart sound and no murmurs RHYTHM: regular rhythm HEART SOUNDS: S1 normal and S2 normal GI: COMMON NORMALS: normal to inspection, nondistended, normoactive bowel sounds, soft to palpation and non-tender PALPATION: Yes soft Extremity: COMMON NORMALS: no joint enlargement and no pedal edema OTHER: B ilateral BKA. Neuro: COMMON NORMALS: oriented x3 and moves all extremities Skin: COMMON NORMALS: no rashes or lesions noted GENERAL SKIN EXAM: no rashes or lesions noted Data : 10/19/19 05:00 10/19/19 05:00 Micro: Microbiology 10/19/19 10:13 Bacterial Antigens - Final Urine,Clean Catch 10/19/19 10:13 Legionella Urinary Antigen - Final Urine,Clean Catch 10/19/19 08:25 Blood Culture - Preliminary Blood SPECIMEN COLLECTED 10/19/19 06:30 Blood Culture - Preliminary Blood SPECIMEN COLLECTED A&P Assessment and plan (1) Right middle lobe pneumonia: Pneumonia with sepsis. Continue IV antibiotics. With COPD exacerbation. Continue prednisone. Add scheduled breathing treatm ents. Collect sputum culture. Status: Acute Code(s): J18.9 - Pneumonia, unspecified organism (2) CHF exacerbation: Continue Lasix. Monitor I&O. Changed to cardiac diet. Status: Acute Code(s): I50.9 - Heart failure, unspecified (3) DNR (do not resuscitate): Status: Acute Code(s): Z66 - Do not resuscitate Additional A&P Information Chronic kidney disease with creatinine baseline around 1.5-1.6 Type 2 diabetes: Moderate sliding scale with consistent carbohydrate diet Coronary disease status post stent RCA 2016 BPH: Continue tamsulosin Hx peripheral vascular disease status post bilateral BKA Attestations Medical Necessity Statement*: Continue admission versus management of sepsis, pneumonia, COPD exacerbation. Coding Level of Care Code Acute Fingerprint Clerk for Chg Fwd Diagnoses Right middle lobe pneumonia J18.9 CHF exacerbation I50.9 DNR (do not resuscitate) Z66
[2019-10-19 22:23] LABS: Glucose Point of Care 246 mg/dL (70-110)
--- NOTE | 2019-10-19 23:10 | PC.RESP ---
pt off bipap at this time. pt sleeping no respiratory distress noted at this time
[2019-10-20] VITALS (14 sets, daily range): BP systolic 122–146; BP diastolic 68–84; PULSE 81–97; RESP 20–24; TEMP 36.3–36.8; O2SAT 93–99
[2019-10-20] MEDS: ondansetron 2 mg/ML SDV 2 mL 4 MG IVP ×2 (00:05→23:08)
[2019-10-20] MEDS: acetaminophen 325 mg Tablet PO ×2 (01:16→05:59)
[2019-10-20] MEDS: piperacillin-tazobactam 3.375 GM in sodium chloride 0.9% (plus) 50 ML IV ×3 (01:18→18:48)
[2019-10-20] MEDS: ipratropium-albuterol 3 mL Neb INHALATION ×4 (02:11→21:30)
[2019-10-20] MEDS: buPROPion SR (12 HR) 150 mg Tablet PO ×2 (06:21→18:47)
[2019-10-20] MEDS: heparin 5,000 unit/mL INJ 1 mL 5000 UNIT SUBCUT ×2 (06:21→14:25)
[2019-10-20 06:39] LABS: Glucose Point of Care 150 mg/dL (70-110)
[2019-10-20 09:15] LABS: Basophils % 0.1 %; Eosinophils % 0.1 %; Hemoglobin 11.7 g/dL (11.7-16.6); Lymphocytes # 1.2 10^3/uL (0.8-4.8); Lymphocytes % 6.2 %; Mean Corpuscular HGB Conc 31.6 g/dL (30.0-36.0); Mean Corpuscular Hemoglobin 28.6 pg (28.0-34.0); Mean Corpuscular Volume 90.5 fL (80-94); Mean Platelet Volume 9.9 fL (7.4-10.4); Monocytes # 1.3 10^3/uL (0.2-0.9); Neutrophils # 16.1 10^3/uL (1.8-7.7); Neutrophils % 86.1 %; Nucleated Red Blood Cells % 0 %; Platelet Count 346 10^3/cmm (130-400); Red Blood Count 4.09 10^6/uL (4.1-5.3); Red Cell Distribution Width 13.9 % (12.1-15.1); White Blood Count 18.7 10^3/uL (4.0-10.0)
[2019-10-20 09:28] LABS: Anion Gap 16.8 (5-19); Blood Urea Nitrogen 49 mg/dL (8-23); Calcium 9.4 mg/dL (8.5-10.5); Carbon Dioxide 28 mmol/L (22-29); Chloride 101 mmol/L (98-107); Glomerular Filtration Rate 33.9 mL/min (90-130); Glucose 223 mg/dL (74-106); Osmolality Calculated 297 mOsm/kg (285-295); Potassium 4.8 mmol/L (3.5-5.1); Sodium 141 mmol/L (136-145)
[2019-10-20] MEDS: aspirin 81 mg EC Tablet PO (09:58)
[2019-10-20] MEDS: tamsulosin 0.4 mg Capsule PO (09:59)
[2019-10-20] MEDS: atorvastatin 40 mg Tablet 80 MG PO (09:59)
[2019-10-20] MEDS: citalopram 20 mg Tablet PO (09:59)
[2019-10-20] MEDS: clopidogrel 75 mg Tablet PO (09:59)
[2019-10-20] MEDS: predniSONE 20 mg Tablet 40 MG PO (10:00)
[2019-10-20] MEDS: magnesium lactate 84 mg Tablet PO (10:00)
[2019-10-20] MEDS: FUROsemide 10 mg/mL SDV 10mL 60 MG IVP (10:00)
[2019-10-20] MEDS: levoFLOXacin 750 mg Tablet PO (10:00)
[2019-10-20] MEDS: carvedilol 3.125 mg Tablet PO ×2 (10:03→18:47)
[2019-10-20 11:15] LABS: Glucose Point of Care 239 mg/dL (70-110)
[2019-10-20 16:45] LABS: Glucose Point of Care 197 mg/dL (70-110)
--- NOTE | 2019-10-20 19:48 | P.PN_ITS ---
Subjective Subjective: Interval history: He is feeling somewhat better. Still coughing. Vitals/I&O/Wt Last Vital Signs Temp 98.1 F 10/20/19 15:05 Pulse 86 10/20/19 15:05 Resp 20 H 10/20/19 15:05 BP 135/84 10/20/19 15:05 Pulse Ox 98 10/20/19 15:05 10/20/19 10/20/19 10/20/19 06:59 14:59 22:59 Intake Total 250 / 1860.417 770 / 770 240 / 1010 Output Total 500 / 1925 570 / 570 250 / 820 Balance -250 / -64.583 200 / 200 -10 / 190 Weight last 48 hrs Weight 68.039 kg Physical Exam Const: COMMON NORMALS: no apparent distress and oriented x3 ORIENTATION/CONSCIOUSNESS: Yes other (Effeminite appearance.) HENMT: COMMON NORMALS: oropharynx normal Neck/C-Spine: COMMON NORMALS: no JVD Resp: AUSCULTATION: rhonchi, wheezes and diminished lung sounds Cardio: COMMON NORMALS: no JVD, regular rhythm, S1 normal heart sound, S2 normal heart sound and no murmurs RHYTHM: regular rhythm HEART SOUNDS: S1 normal and S2 normal GI: COMMON NORMALS: normal to inspection, nondistended, normoactive bowel sounds, soft to palpation and non-tender PALPATION: Yes soft Extremity: COMMON NORMALS: no joint enlargement and no pedal edema OTHER: Bilateral BKA. Neuro: COMMON NORMALS: oriented x3 and moves all extremities Skin: COMMON NORMALS: no rashes or lesions noted GENERAL SKIN EXAM: no rashes or lesions noted Data : 10/20/19 09:07 10/20/19 09:07 Micro: Microbiology 10/19/19 08:25 Blood Culture - Preliminary Blood NEGATIVE TO DATE 10/19/19 06:30 Blood Culture - Preliminary Blood NEGATIVE TO DATE 10/19/19 17:05 Gram Stain - Final Sputum - Expectorated Sputum A&P Assessment and plan (1) Right middle lobe pneumonia: Slow improvement. Feeling slightly better. Still coughing. Still needing 2 L oxygen by nasal cannula. Rhonchi, wheezing on exam. Pneumonia with sepsis. Continue IV antibiotics. With COPD exacerbation. Continue prednisone. Breathing treatments. Status: Acute Code(s): J18.9 - Pneumonia, unspecified organism (2) CHF exacerbation: Still having crackles, although this appears to be secondary to pneumonia. He is otherwise appears euvolemic, without edema, no JVD. BUN is rising, as well as some rising creatinine. We will hold further Lasix. Reassess volume status. Continue cardiac diet. Status: Acute Code(s): I50.9 - Heart failure, unspecified (3) DNR (do not resuscitate): Status: Acute Code(s): Z66 - Do not resuscitate Additional A&P Information Chronic kidney disease with creatinine baseline around 1.5-1.6 Type 2 diabetes: Moderate sliding scale with consistent carbohydrate diet Coronary disease status post stent RCA 2017 BPH: Continue tamsulosin Hx peripheral vascular disease status post bilateral BKA Attestations Medical Necessity Statement*: Continue admission for assessment management of pneumonia, COPD exacerbation, with hypoxia. Coding Level of Care Code Acute Clipper Automatic for Chg Fwd Diagnoses Right middle lobe pneumonia J18.9 CHF exacerbation I50.9 DNR (do not resuscitate) Z66
[2019-10-20 21:00] LABS: Glucose Point of Care 320 mg/dL (70-110)
[2019-10-21] VITALS (11 sets, daily range): BP systolic 122–170; BP diastolic 62–93; PULSE 49–112; RESP 18–26; TEMP 36.4–37; O2SAT 86–97
[2019-10-21] MEDS: heparin 5,000 unit/mL INJ 1 mL 5000 UNIT SUBCUT ×2 (00:13→06:21)
[2019-10-21] MEDS: piperacillin-tazobactam 3.375 GM in sodium chloride 0.9% (plus) 50 ML IV ×2 (00:13→09:13)
[2019-10-21] MEDS: ipratropium-albuterol 3 mL Neb INHALATION ×3 (03:05→15:42)
[2019-10-21 05:17] LABS: Basophils % 0.1 %; Eosinophils % 0.1 %; Hematocrit 37.2 % (42.0-52.0); Hemoglobin 11.6 g/dL (11.7-16.6); Lymphocytes # 1.4 10^3/uL (0.8-4.8); Lymphocytes % 7.6 %; Mean Corpuscular HGB Conc 31.2 g/dL (30.0-36.0); Mean Corpuscular Hemoglobin 28.6 pg (28.0-34.0); Mean Corpuscular Volume 91.6 fL (80-94); Mean Platelet Volume 10.2 fL (7.4-10.4); Monocytes # 1.2 10^3/uL (0.2-0.9); Monocytes % 6.4 %; Neutrophils # 15.2 10^3/uL (1.8-7.7); Neutrophils % 85.2 %; Nucleated Red Blood Cells % 0 %; Platelet Count 369 10^3/cmm (130-400); Red Blood Count 4.06 10^6/uL (4.1-5.3); Red Cell Distribution Width 13.6 % (12.1-15.1); White Blood Count 17.9 10^3/uL (4.0-10.0)
[2019-10-21 05:36] LABS: Anion Gap 16.1 (5-19); Blood Urea Nitrogen 52 mg/dL (8-23); Calcium 9.6 mg/dL (8.5-10.5); Carbon Dioxide 30 mmol/L (22-29); Chloride 97 mmol/L (98-107); Glomerular Filtration Rate 33.9 mL/min (90-130); Glucose 209 mg/dL (74-106); Osmolality Calculated 292 mOsm/kg (285-295); Potassium 4.1 mmol/L (3.5-5.1); Sodium 139 mmol/L (136-145)
[2019-10-21] MEDS: buPROPion SR (12 HR) 150 mg Tablet PO (06:21)
[2019-10-21 06:43] LABS: Glucose Point of Care 180 mg/dL (70-110)
[2019-10-21] MEDS: atorvastatin 40 mg Tablet 80 MG PO (09:12)
[2019-10-21] MEDS: tamsulosin 0.4 mg Capsule PO (09:12)
[2019-10-21] MEDS: predniSONE 20 mg Tablet 40 MG PO (09:12)
[2019-10-21] MEDS: citalopram 20 mg Tablet PO (09:12)
[2019-10-21] MEDS: aspirin 81 mg EC Tablet PO (09:12)
[2019-10-21] MEDS: clopidogrel 75 mg Tablet PO (09:12)
[2019-10-21] MEDS: carvedilol 3.125 mg Tablet PO (09:12)
[2019-10-21] MEDS: magnesium lactate 84 mg Tablet PO (09:16)
--- NOTE | 2019-10-21 11:28 | PM.DCS ---
Discharge Providers Date of Admission: 10/19/19 06:51 Date of Discharge: 10/21/19 Attending Provider at Admission: Alma Huffman MD Attending Provider at Discharge: Srikanth Ham Primary Care Provider: India Leger DO Diagnoses at Discharge Discharge Diagnosis (1) Right middle lobe pneumonia: Status: Acute (2) CHF exacerbation: Status: Acute (3) DNR (do not resuscitate): Status: Acute Reason for Visit Reason for Visit: Reason For Visit: RESPIRATORY DISTRESS Hospital Course Hospital Course: 63-year-old gentleman with COPD, CHF, EF 36%, DM 2, bilateral BKA was admitted for assessment management of respiratory distress, found to have right lower lobe pneumonia, CHF exacerbation, COPD exacerbation. He was treated with broad-spectrum antibiotics initially, Levaquin, Zosyn, vancomycin. He has been requiring oxygen support. He received IV Lasix for CHF. He reports feeling better. He is still requiring oxygen, with some wheezing on exam, although overall is doing better. He will complete a course of Augmentin due to concern for aspiration pneumonia. Will arrange for modified barium swallow study. He will complete a steroid taper over 12 days for COPD exacerbation. He is now euvolemic, and Lasix on return to his usual dose. Please continue to reassess volume status, adjust as necessary. His creatinine has been stable, although appears perhaps slightly higher than his usual with his chronic kidney disease. BMP will be rechecked in 3 days to follow-up. Physical Exam Const: COMMON NORMALS: no apparent distress and oriented x3 ORIENTATION/CONSCIOUSNESS: Yes other (Effeminite appearance.) HENMT: COMMON NORMALS: oropharynx normal Neck/C-Spine: COMMON NORMALS: no JVD Resp: AUSCULTATION: rhonchi, wheezes and diminished lung sounds Cardio: COMMON NORMALS: no JVD, regular rhythm, S1 normal heart sound, S2 normal heart sound and no murmurs RHYTHM: regular rhythm HEART SOUNDS: S1 normal and S2 normal GI: COMMON NORMALS: normal to inspection, nondistended, normoactive bowel sounds, soft to palpation and non-tender PALPATION: Yes soft Extremity: COMMON NORMALS: no joint enlargement and no pedal edema OTHER: Bilateral BKA. Neuro: COMMON NORMALS: oriented x3 and moves all extremities Skin: COMMON NORMALS: no rashes or lesions noted GENERAL SKIN EXAM: no rashes or lesions noted Discharge Data Data Completed and Pending: Completed Studies During Hospitalization Category Date Time Status XR chest 1V [place] [id number] Stat Exams 10/19/19 04:55 Completed Pending at discharge Category Date Time Status Blood Culture Sta t Lab 10/19/19 08:25 Results Sputum Culture an d Gram Stain Stat Lab 10/19/19 17:05 Results Vancomycin Trough Timed Lab 10/21/19 11:05 Received Labs from last 24 hours 10/21/19 10/21/19 10/21/19 06:38 04:20 04:20 WBC 17.9 H RBC 4.06 L Hgb 11.6 L Hct 37.2 L MCV 91.6 MCH 28.6 MCHC 31.2 RDW 13.6 Plt Count 369 MPV 10.2 Neut % (Auto) 85.2 Lymph % (Auto) 7.6 [place] % (Auto) 6.4 Eos % (Auto) 0.1 Baso % (Auto) 0.1 Neut # (Auto) 15.2 H Lymph # (Auto) 1.4 [place] # (Auto) 1.2 H Eos # (Auto) 0.0 Baso # (Auto) 0.0 Nucleated RBC % (a uto) 0 Nucleated RBCs # 0.0 Sodium 139 Potassium 4.1 Chloride 97 L Carbon Dioxide 30 H Anion Gap 16.1 BUN 52 H Creatinine 2.0 H GFR Calculation 33.9 L Glucose 209 H POC Glucose 180 Calculated Osmolal ity 292 Calcium 9.6 10/20/19 10/20/19 20:58 16:40 WBC RBC Hgb Hct MCV MCH MCHC RDW Plt Count MPV Neut % (Auto) Lymph % (Auto) [place] % (Auto) Eos % (Auto) Baso % (Auto) Neut # (Auto) Lymph # (Auto) [place] # (Auto) Eos # (Auto) Baso # (Auto) Nucleated RBC % (a uto) Nucleated RBCs # Sodium Potassium Chloride Carbon Dioxide Anion Gap BUN Creatinine GFR Calculation Glucose POC Glucose 320 197 Calculated Osmolal ity Calcium Vitals: Last Vital Signs Temp 97.5 F L 10/21/19 08:00 Pulse 97 10/21/19 10:00 Resp 22 H 10/21/19 10:00 BP 122/68 10/21/19 08:00 Pulse Ox 97 10/21/19 10:00 Discharge Plan Discharge Patient Disposition: er [facility] Condition: Stable Prescriptions: New prednisone 20 mg tablet 20 mg PO DIRECTED 12 Days Qty: 12 RF: 0 amoxicillin-pot clavulanate [Augmentin] 875-125 mg tablet 1 tab PO BID 7 Days Qty: 14 RF: 0 Continued furosemide 40 mg tablet 40 mg PO BID Qty: 5 RF: 0 Wellbutrin SR 150 mg Tablet Sustained-Release 12 Hr 150 mg PO Q12H RF: 0 ipratropium-albuterol 0.5 mg-3 mg(2.5 mg base)/3 mL Solution For Nebulization 3 ml INHALATION Q4H PRN (Reason: Shortness Of Breath) RF: 0 albuterol sulfate 2.5 mg /3 mL (0.083 %) solution for nebulization 2.5 mg continuous nebulization UNK RF: 0 Plavix 75 mg Tablet 75 mg PO DAILY RF: 0 senna 8.8 mg/5 mL Syrup 8.8 mg PO BID RF: 0 aspirin 81 mg Tablet,Delayed Release (Dr/Ec) 81 mg PO DAILY RF: 0 carvedilol 3.125 mg Tablet 3.125 mg PO BID RF: 0 Celexa 20 mg Tablet 20 mg PO DAILY RF: 0 tamsulosin 0.4 mg Capsule 0.4 mg PO DAILY RF: 0 bisacodyl 10 mg Suppository 10 mg SD DAILY RF: 0 nitroglycerin 0.4 mg Tablet, Sublingual 0.4 mg SUBLINGUAL Q5M PRN (Reason: Chest Pain) RF: 0 budesonide 0.5 mg/2 mL suspension for nebulization 2 ml inhalation UNK RF: 0 Miralax 17 gram/dose Powder 17 g PO DAILY RF: 0 lisinopril 2.5 mg Tablet 2.5 mg PO DAILY RF: 0 Pneumovax 23 25 mcg/0.5 mL Solution 25 mcg IM UNK RF: 0 loratadine 10 mg Tablet 10 mg PO DAILY RF: 0 Humalog KwikPen Insulin 100 unit/mL Insulin Pen See Rx Instructions .ROUTE .COMPLEX RF: 0 Crestor 20 mg Tablet 20 mg PO DAILY RF: 0 Magtab 84 mg Tablet Extended Release 84 mg PO DAILY RF: 0 oseltamivir 30 mg Capsule 30 mg PO DAILY RF: 0 Prevnar 13 (PF) 0.5 mL Syringe 0.5 ml IM UNK RF: 0 potassium chloride 20 mEq Tablet Extended Release 20 meq PO DAILY RF: 0 glucagon HCl 1 mg Recon Soln 1 mg IM Q20M PRN (Reason: Hypoglycemia) RF: 0 Lantus U-100 Insulin 100 unit pen injector See Rx Instructions .ROUTE .COMPLEX RF: 0 acetaminophen 325 mg 325 mg PO Q4-5H RF: 0 Discharge Orders: Discharge Order (Routine); Ordered 10/21/19 Ordered By: Srikanth Ham Other Ambulatory Orders: Basic Metabolic Panel (Routine) Timeframe: 3 Days Facility: [facility] - Location: Lab - Main Lab Ordered By: Srikanth Ham [place] barium swallow modifd 66012 (Routine) Timeframe: 3 Days Facility: [facility] - Location: Radiology Ordered By: Srikanth Ham Referrals: Chance Berger MD [Physician] - 2 weeks (COPD) India Leger DO [Primary Care Provider] - 4-7 days Discharge Diet: Diabetic Discharge Activity: Oxygen as instructed Activity Restrictions/Additional Instructions: Continue nebulization for wheezing, shortness of breath. Continue oxygen as recommended by home oxygen evaluation, goal saturation 88-92%. Discharge Attestations Time Spent in Discharge Care*: greater than 30 min Quality Metrics Clinical Quality Measures During this hospital stay, did patient experience: None Coding Level of Care Code Acute Behavioral Psychologist for Chg Fwd Diagnoses Right middle lobe pneumonia J18.9 CHF exacerbation I50.9 DNR (do not resuscitate) Z66
[2019-10-21 11:53] LABS: Glucose Point of Care 287 mg/dL (70-110)
--- NOTE | 2019-10-21 13:34 | PC.NURSE ---
Pharmacy called with question regarding the count of prednisone tablets. 12 were ordered. Due to directions Patient to receive 20 tablets oral.
--- NOTE | 2019-10-21 14:30 | PC.NURSE ---
REPORT CALLED TO JARRET SÁNCHEZ WITH [facility]
[2019-10-21 16:21] LABS: Glucose Point of Care 313 mg/dL (70-110)
== END 2019-10-21 17:00 | disposition skilled nursing facility (03) | DRG 871 ==
LOC: ER 05:00 → MEDSURG 06:51
PROVIDERS: Admitting Provider Internal Medicine; Emergency Provider Emergency Medicine; Family Provider Family Medicine; PCP Family Medicine; Visit Provider Internal Medicine
DX: A41.9 Sepsis, unspecified organism (principal); I50.21 Acute systolic (congestive) heart failure; J18.9 Pneumonia, unspecified organism; J69.0 Pneumonitis due to inhalation of food and vomit; J44.1 Chronic obstructive pulmonary disease with (acute) exacerbation; J44.0 Chronic obstructive pulmonary disease with (acute) lower respiratory infection; I13.0 Hypertensive heart and chronic kidney disease with heart failure and stage 1 through stage 4 chronic kidney disease, or unspecified chronic kidney disease; Z66 Do not resuscitate; Z89.512 Acquired absence of left leg below knee; Z89.511 Acquired absence of right leg below knee; N40.0 Benign prostatic hyperplasia without lower urinary tract symptoms; E11.22 Type 2 diabetes mellitus with diabetic chronic kidney disease; I25.10 Atherosclerotic heart disease of native coronary artery without angina pectoris; Z95.5 Presence of coronary angioplasty implant and graft; Z79.02 Long term (current) use of antithrombotics/antiplatelets; Z79.82 Long term (current) use of aspirin; Z79.4 Long term (current) use of insulin; Z79.899 Other long term (current) drug therapy; N18.3 Chronic kidney disease, stage 3 (moderate); I25.5 Ischemic cardiomyopathy; F17.210 Nicotine dependence, cigarettes, uncomplicated; Z88.8 Allergy status to other drugs, medicaments and biological substances
CPT/HCPCS: 12345; 36415; 36416; 71045; 80048; 80053; 80202; 82962; 83605; 83880; 85025; 86403; 87040; 87070; 87205; 87449; 87804; 93005; 94640; 94660; 96365; 96372; 96374; 96375; 99281; J1644; J1815; J1940; J1956; J2405; J2543; J2930; J3370; J7050; J7512

== ENCOUNTER 2019-10-26 07:51 | Outpatient (CLI) | payer MEDICARE, MEDICAID, SELFPAY ==
--- NOTE | 2019-10-26 07:59 | FL_ITS ---
WS: [id number] MODIFIED BARIUM SWALLOW TECHNIQUE: Modified barium swallow with speech therapy using multiple consistencies. FLUOROSCOPY TIME: 1.3 minutes. CLINICAL INFORMATION: Oropharyngeal dysphagia COMPARISON: None. FINDINGS: Multiple consistencies utilized. Tiny amount of penetration with thin liquid. No rosana aspiration. No difficulties with barium tablet. FL/FL barium swallow modifd [id number] IMPRESSION: Tiny amount of penetration with thin liquid. No rosana aspiration.
== END 2019-10-26 07:52 | disposition home or self-care (01) ==
LOC: RAD 07:53
PROVIDERS: Family Provider Internal Medicine; PCP Internal Medicine; Visit Provider Internal Medicine
DX: R13.12 Dysphagia, oropharyngeal phase (principal)
CPT/HCPCS: 74230; 92611

== ENCOUNTER 2019-11-21 15:22 | Emergency (ER) | payer MEDICARE, MEDICAID, SELFPAY ==
[2019-11-21 15:23] VITALS: BP 114/61; PULSE 101; RESP 20; TEMP 37; O2SAT 95; BMI 22.8
--- NOTE | 2019-11-21 15:24 | ED_ITS ---
Entered by Donita Mcclure, acting as scribe for Will York DO HPI - Fever General: Chief Complaint: Fever Stated Complaint: FEVER/N/V Time Seen by Provider: 11/21/19 15:24 Source: patient and EMS Mode of arrival: EMS Limitations: no limitations History of Present Illness: HPI Narrative: 64 yo male presents with fever. pt states this started today. per EMS, senior care staff sent pt to the ED for vomiting. pt states nothing makes this better or worse. pt denies any other symptoms at this time. 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) Exacerbating factors: nothing Relieving factors: nothing Associated symptoms: Reports nausea, vomiting and other (fever); Deny back/flank pain, chest pain, dysuria or nasal congestion Treatments prior to arrival fever: acetaminophen and ibuprofen Review of Systems Const: Reports: fever ENMT: Denies: throat pain, ear pain, nasal discharge or nasal congestion Card: Denies: chest pain, edema, shortness of breath on exertion or shortness of breath when lying down Resp: Denies: shortness of breath, productive cough or non-productive cough GI: Reports: nausea and vomiting : Denies: flank pain, painful urination, urinary frequency or urinary urgency Skin/Breast: Denies: rash or itching PFSH ED PFSH: Social History Smoking and tobacco status: current every day smoker cigarettes Packs smoked per day: 0.5 Years cigarettes smoked: 59 Alcohol intake: never Lives independently: No Housing: [place] Current occupational status: retired and disabled History of recent travel: No Physical Exam Const: COMMON NORMALS: no apparent distress GENERAL APPEARANCE: cooperative and comfortable ORIENTATION/CONSCIOUSNESS: Yes awake, Yes oriented to person, Yes oriented to place and Yes oriented to time HENMT: COMMON NORMALS: normocephalic, head/scalp atraumatic, hearing grossly normal bilaterally, external ears normal, EAC's normal, TM's normal bilaterally, nasal mucous membranes and turbinates normal, moist oral mucous membranes and oropharynx normal HEAD & SCALP: normocephalic and atraumatic NOSE: nasal mucous membranes and turbinates normal EXTERNAL EAR: Yes external ears normal EXTERNAL AUDITORY CANAL: EAC's normal TYMPANIC MEMBRANE: TM's normal bila terally Eye: COMMON NORMALS: PERRL, EOMs intact bilaterally, conjunctivae normal and no scleral icterus CONJUNCTIVA: Yes conjunctivae normal PUPIL: Yes PERRL Neck/C-Spine: COMMON NORMALS: full ROM, no lymphadenopathy, supple and no JVD Lymph: LYMPHATIC: no lymphadenopathy noted and no lymphedema noted Resp: COMMON NORMALS: normal respiratory effort, no retractions, no use of accessory muscles and clear to auscultation bilaterally AUSCULTATION: clear t o auscultation bilaterally Cardio: COMMON NORMALS: no JVD, regular rate, regular rhythm and no murmurs RATE: regular rate RHYTHM: regular rhythm GI: COMMON NORMALS: soft to palpation and no hepatosplenomegaly AUSCULTATION: Yes normoactive bowel sounds PALPATION: Yes soft, No tender, No guarding and Yes no hepatosplenomegaly Extremity: OTHER: Bilateral [id number] amputations Neuro: SENSORIUM/ORIENTATION: Yes oriented to person, Yes oriented to place and Yes oriented to time Skin: COMMON NORMALS: no rashes or lesions noted GENERAL SKIN EXAM: no rashes or lesions noted Course ED course: Patient generally relates he does not have any significant symptoms he was positive for flu we will go ahead and discharge him home on Tamiflu. Reported to the senior care prior to being discharged. Vital Signs: Vital signs: Vital Signs Temperature 98.8 F 11/21/19 15:45 Pulse Rate 92 11/21/19 18:29 Respiratory Rate 18 11/21/19 18:29 Blood Pressure 127/66 11/21/19 18:29 Pulse Oximetry 91 11/21/19 18:29 MDM - Fever Lab Data: Labs: Lab Results 11/21/19 11/21/19 11/21/19 Range/Units 15:43 15:43 15:43 WBC 7.0 (4.0-10.0) 10^3/ uL RBC 4.25 (4.1-5.3) 10^6/u L Hgb 12.0 (11.7-16.6) g/dL Hct 38.8 L (42.0-52.0) % MCV 91.3 (80-94) fL MCH 28.2 (28.0-34.0) pg MCHC 30.9 (30.0-36.0) g/dL RDW 14.3 (12.1-15.1) % Plt Count 423 H (130-400) 10^3/c mm MPV 9.3 (7.4-10.4) fL Neut % (Auto) 81.5 % Lymph % (Auto) 7.4 % [place] % (Auto) 8.4 % Eos % (Auto) 0.7 % Baso % (Auto) 0.9 % Neut # (Auto) 5.7 (1.8-7.7) 10^3/u L Lymph # (Auto) 0.5 L (0.8-4.8) 10^3/u L [place] # (Auto) 0.6 (0.2-0.9) 10^3/u L Eos # (Auto) 0.1 (0.0-0.8) 10^3/u L Baso # (Auto) 0.1 (0.0-0.1) 10^3/u L Nucleated RBC % (a uto) 0 % Nucleated RBCs # 0.0 /100WBC Sodium 135 L (136-145) mmol/L Potassium 4.7 (3.5-5.1) mmol/L Chloride 99 (98-107) mmol/L Carbon Dioxide 23 (22-29) mmol/L Anion Gap 17.7 (5-19) BUN 39 H (8-23) mg/dL Creatinine 1.8 H (0.7-1.2) mg/dL GFR Calculation 38.2 L (90-130) mL/min Glucose 85 (65-115) mg/dL Calcium 9.4 (8.5-10.5) mg/dL Total Bilirubin 0.3 (0.15-1.2) mg/dL AST 19 (0-40) U/L ALT 24 (0-41) U/L Alkaline Phosphata se 108 (40-130) IU/L Total Protein 6.9 (6.6-8.7) g/dL Albumin 3.6 (3.5-5.2) g/dL Globulin 3.3 (1.3-4.6) g/dL Lipase 6 L (13-60) U/L Serum Ketones Negative (Negative) Influenza Type A A g (Negative) POC Influenza B Ag (Negative) 11/21/19 Range/Units 15:55 WBC (4.0-10.0) 10^3/ uL RBC (4.1-5.3) 10^6/u L Hgb (11.7-16.6) g/dL Hct (42.0-52.0) % MCV (80-94) fL MCH (28.0-34.0) pg MCHC (30.0-36.0) g/dL RDW (12.1-15.1) % Plt Count (130-400) 10^3/c mm MPV (7.4-10.4) fL Neut % (Auto) % Lymph % (Auto) % [place] % (Auto) % Eos % (Auto) % Baso % (Auto) % Neut # (Auto) (1.8-7.7) 10^3/u L Lymph # (Auto) (0.8-4.8) 10^3/u L [place] # (Auto) (0.2-0.9) 10^3/u L Eos # (Auto) (0.0-0.8) 10^3/u L Baso # (Auto) (0.0-0.1) 10^3/u L Nucleated RBC % (a uto) % Nucleated RBCs # /100WBC Sodium (136-145) mmol/L Potassium (3.5-5.1) mmol/L Chloride (98-107) mmol/L Carbon Dioxide (22-29) mmol/L Anion Gap (5-19) BUN (8-23) mg/dL Creatinine (0.7-1.2) mg/dL GFR Calculation (90-130) mL/min Glucose (65-115) mg/dL Calcium (8.5-10.5) mg/dL Total Bilirubin (0.15-1.2) mg/dL AST (0-40) U/L ALT (0-41) U/L Alkaline Phosphata se (40-130) IU/L Total Protein (6.6-8.7) g/dL Albumin (3.5-5.2) g/dL Globulin (1.3-4.6) g/dL Lipase (13-60) U/L Serum Ketones (Negative) Influenza Type A A g Positive H (Negative) POC Influenza B Ag Negative (Negative) Discharge Plan Discharge Patient Disposition: Home, Self-Care Clinical Impression: Influenza Condition: Stable Prescriptions: New Tamiflu 75 mg capsule 75 mg PO BID 5 Days Qty: 10 RF: 0 No Action furosemide 40 mg tablet 40 mg PO BID Qty: 5 RF: 0 Wellbutrin SR 150 mg Tablet Sustained-Release 12 Hr 150 mg PO Q12H RF: 0 ipratropium-albuterol 0.5 mg-3 mg(2.5 mg base)/3 mL Solution For Nebulization 3 ml INHALATION Q4H PRN (Reason: Shortness Of Breath) RF: 0 albuterol sulfate 2.5 mg /3 mL (0.083 %) solution for nebulization 2.5 mg continuous nebulization UNK RF: 0 Plavix 75 mg Tablet 75 mg PO DAILY RF: 0 senna 8.8 mg/5 mL Syrup 8.8 mg PO BID RF: 0 aspirin 81 mg Tablet,Delayed Release (Dr/Ec) 81 mg PO DAILY RF: 0 carvedilol 3.125 mg Tablet 3.125 mg PO BID RF: 0 Celexa 20 mg Tablet 20 mg PO DAILY RF: 0 tamsulosin 0.4 mg Capsule 0.4 mg PO DAILY RF: 0 bisacodyl 10 mg Suppository 10 mg RI DAILY RF: 0 nitroglycerin 0.4 mg Tablet, Sublingual 0.4 mg SUBLINGUAL Q5M PRN (Reason: Chest Pain) RF: 0 budesonide 0.5 mg/2 mL suspension for nebulization 2 ml inhalation UNK RF: 0 Miralax 17 gram/dose Powder 17 g PO DAILY RF: 0 lisinopril 2.5 mg Tablet 2.5 mg PO DAILY RF: 0 Pneumovax 23 25 mcg/0.5 mL Solution 25 mcg IM UNK RF: 0 loratadine 10 mg Tablet 10 mg PO DAILY RF: 0 Humalog KwikPen Insulin 100 unit/mL Insulin Pen See Rx Instructions .ROUTE .COMPLEX RF: 0 Crestor 20 mg Tablet 20 mg PO DAILY RF: 0 Magtab 84 mg Tablet Extended Release 84 mg PO DAILY RF: 0 oseltamivir 30 mg Capsule 30 mg PO DAILY RF: 0 Prevnar 13 (PF) 0.5 mL Syringe 0.5 ml IM UNK RF: 0 potassium chloride 20 mEq Tablet Extended Release 20 meq PO DAILY RF: 0 glucagon HCl 1 mg Recon Soln 1 mg IM Q20M PRN (Reason: Hypoglycemia) RF: 0 Lantus U-100 Insulin 100 unit pen injector See Rx Instructions .ROUTE .COMPLEX RF: 0 acetaminophen 325 mg 325 mg PO Q4-5H RF: 0 Discharge Orders: Discharge Order (Routine); Ordered 11/21/19 Ordered By: Will York Referrals: Hiram Black DO [Primary Care Provider] - Discharge Date/Time: 11/21/19 18:37 Coding Level of Care Code ED Hair Assistant for Chg Fwd Exam Comprehensive The documentation recorded by the Ren wilkins Bridget Annette, accurately reflects the service I personally performed and the decisions made by Jaylen morocho Curtis L, DO Nov 21, 2019 15:22
--- NOTE | 2019-11-21 15:30 | XRR_ITS ---
PROCEDURE INFORMATION: Exam: XR Abdomen, 2 Views Exam date and time: 11/21/2019 3:32 PM Age: 64 years old Clinical indication: Vomiting; Additional info: Abd pain TECHNIQUE: Imaging protocol: XR of the abdomen. Views: 2 Views. COMPARISON: No relevant prior studies available. FINDINGS: Heart/Mediastinum: Calcified hilar and mediastinal lymph nodes. Lungs: Minor curvilinear scarring or atelectasis right lung base. Pleural space: Small right pleural effusion. Gastrointestinal tract: Benign-appearing bowel gas pattern. Intraperitoneal space: Normal. No free air. Organs: Spleen contains multiple calcified granulomas. Bones/joints: Unremarkable for age. XR/XR acute abdomen series [id number] IMPRESSION: Small right pleural effusion. Old granulomatous disease.
[2019-11-21 15:45] VITALS: BP 109/64; PULSE 106; RESP 18; TEMP 37.1; O2SAT 94
[2019-11-21 15:51] LABS: Basophils # 0.1 10^3/uL (0.0-0.1); Basophils % 0.9 %; Eosinophils # 0.1 10^3/uL (0.0-0.8); Eosinophils % 0.7 %; Hematocrit 38.8 % (42.0-52.0); Lymphocytes # 0.5 10^3/uL (0.8-4.8); Lymphocytes % 7.4 %; Mean Corpuscular HGB Conc 30.9 g/dL (30.0-36.0); Mean Corpuscular Hemoglobin 28.2 pg (28.0-34.0); Mean Corpuscular Volume 91.3 fL (80-94); Mean Platelet Volume 9.3 fL (7.4-10.4); Monocytes # 0.6 10^3/uL (0.2-0.9); Monocytes % 8.4 %; Neutrophils # 5.7 10^3/uL (1.8-7.7); Neutrophils % 81.5 %; Nucleated Red Blood Cells % 0 %; Platelet Count 423 10^3/cmm (130-400); Red Blood Count 4.25 10^6/uL (4.1-5.3); Red Cell Distribution Width 14.3 % (12.1-15.1)
[2019-11-21 15:56] LABS: Ketone (Acetest) Serum Negative (Negative)
[2019-11-21 16:04] LABS: Alanine Aminotransferase 24 U/L (0-41); Albumin Level 3.6 g/dL (3.5-5.2); Alkaline Phosphatase 108 IU/L (40-130); Anion Gap 17.7 (5-19); Aspartate Amino Transferase 19 U/L (0-40); Blood Urea Nitrogen 39 mg/dL (8-23); Calcium 9.4 mg/dL (8.5-10.5); Carbon Dioxide 23 mmol/L (22-29); Chloride 99 mmol/L (98-107); Globulin 3.3 g/dL (1.3-4.6); Glomerular Filtration Rate 38.2 mL/min (90-130); Glucose 85 mg/dL (65-115); Lipase 6 U/L (13-60); Potassium 4.7 mmol/L (3.5-5.1); Sodium 135 mmol/L (136-145); Total Bilirubin 0.3 mg/dL (0.15-1.2); Total Protein 6.9 g/dL (6.6-8.7)
[2019-11-21] MEDS: sodium chloride 0.9% 1,000 ML 999 ML IV (16:28)
[2019-11-21 16:34] LABS: Influenza A by IFA Positive (Negative); Influenza B by IFA Negative (Negative)
[2019-11-21 17:09] VITALS: BP 89/66; PULSE 98; RESP 20; O2SAT 97
[2019-11-21 17:15] VITALS: BP 120/66; PULSE 97; RESP 18; O2SAT 98
[2019-11-21 18:29] VITALS: BP 127/66; PULSE 92; RESP 18; O2SAT 91
== END 2019-11-21 18:37 | disposition home or self-care (01) ==
PROVIDERS: Emergency Provider Family Medicine; Family Provider Internal Medicine; PCP Internal Medicine
DX: J11.1 Influenza due to unidentified influenza virus with other respiratory manifestations (principal); F17.210 Nicotine dependence, cigarettes, uncomplicated
CPT/HCPCS: 36415; 74022; 80053; 82009; 83690; 85025; 87804; 96360; 99283; A9270; J7030

== ENCOUNTER → 2019-11-30 14:23 | Outpatient (BNVA) | payer MEDICARE, MEDICAID, SELFPAY | PROVIDERS: Family Provider Internal Medicine; PCP Internal Medicine; Visit Provider Social Worker | DX: F64.1 Dual role transvestism (principal); F33.42 Major depressive disorder, recurrent, in full remission | CPT/HCPCS: 90834 ==

== ENCOUNTER 2019-12-15 18:39 | Inpatient (IN) | payer MEDICARE, MEDICAID, SELFPAY ==
--- NOTE | 2019-12-15 18:46 | ED_ITS ---
Entered by Makenna Cason, acting as scribe for Ju Sosa HPI - Fall General: Chief Complaint: Syncope Stated Complaint: FALL Time Seen by Provider: 12/15/19 18:45 Source: patient and RN notes reviewed Mode of arrival: EMS Limitations: no limitations History of Present Illness: HPI Narrative: 64 yo male presents to ED after he fell today. He said he fell because his blood sugar dropped. The senior living gave him some orange juice and his sugar came back up. He said he injured L hand, his head and his neck when he fell. complaint: fall Onset (ago): minute(s) Fall from: standing Fall witnessed: yes, by living facility staff Place fall occurred: senior living/[facility] Loss of consciousness: None Prolonged down time: no Symptoms prior to fall: other (blood sugar dropped) Context: history of frequent falls Location of injury: head and neck Location of injury - extremities: Left: hand Severity: mild Quality: aching Associated symptoms-after fall: Reports headache(s), neck pain and other (L hand pain); Denies abdominal pain, chest pain or hematuria Review of Systems General: Reports: other (negative unless marked) Const: Denies: fever, chills, body aches, fatigue, malaise or diaphoresis Eyes: Denies: change in vision or blurry vision ENMT: Denies: throat pain, painful swallowing, hoarseness, ear pain, ear discharge, Change in hearing or nasal discharge Card: Denies: chest pain, palpitations, irregular heart rhythm, syncope, pre- syncope, shortness of breath on exertion or shortness of breath when lying down Resp: Denies: shortness of breath, productive cough, non-productive cough, wheezing, coughing up blood or chest congestion GI: Denies: abdominal pain, nausea, vomiting, vomiting blood, coffee grounds in vomit, diarrhea, constipation, cramping, blood in stool or black tarry stool : Denies: flank pain, difficulty urinating, painful urination, urinary frequency, urinary urgency, decreased urine ouput, urinary incontinence or blood in urine Musc: Reports: neck pain Skin/Breast: Denies: rash, skin tenderness or yellow skin Neuro: Reports: headache Endo: Denies: excessive thirst, tired all the time, cold intolerance, excessive sweating, flushing or hot flashes Ashvin/Lymph: Denies: easy bruising, easy bleeding, petechiae or enlarged lymph nodes All/Imm: Denies: hives, throat swelling, tongue swelling, facial swelling or acute wheezing PFSH ED PFSH: Social History Smoking and tobacco status: current every day smoker cigarettes Packs smoked per day: 0.5 Years cigarettes smoked: 59 Alcohol intake: never Lives independently: No Housing: Correction Current occupational status: retired and disabled History of recent travel: No Physical Exam Const: COMMON NORMALS: no apparent distress, oriented x3, no limitations, healthy appearing and well nourished EXAM LIMITATIONS: no altered mental status GENERAL APPEARANCE: cooperative, well kempt and well developed ORIENTATION/CONSCIOUSNESS: Yes awake HENMT: COMMON NORMALS: normocephalic, head/scalp atraumatic, hearing grossly normal bilaterally, external ears normal, EAC's normal, external nose normal and moist oral mucous membranes HEAD & SCALP: normal to inspection, normocephalic and atraumatic FACE & SINUS: normal facial exam and face symmetric NOSE: external nose normal and nares normal EXTERNAL EAR: Yes external ears normal EXTERNAL AUDITORY CANAL: EAC's normal MOUTH: oral and palatal mucosa normal and tongue normal Eye: COMMON NORMALS: PERRL, EOMs intact bilaterally, conjunctivae normal and no scleral icterus GENERAL EYE: normal appearance of both eyes and normal light reflex CONJUNCTIVA: Yes conjunctivae normal SCLERA: sclerae normal CORNEA: Yes corneas normal PUPIL: Yes PERRL DIRECT OPHTHALMOSCOPY: Yes normal light reflex Neck/C-Spine: COMMON NORMALS: full ROM, no lymphadenopathy, supple, no meningeal signs and no JVD GENERAL: Yes normal visual inspection and Yes trachea midline CERVICAL SPINE: Yes cervical ROM normal Chest: COMMONS NORMALS: inspection of chest normal and palpation of chest normal Resp: COMMON NORMALS: normal respiratory effort, no retractions, no use of accessory muscles and clear to auscultation bilaterally EFFORT & INSPECTION: Yes able to speak in complete sentences AUSCULTATION: clear to auscultation bilaterally Cardio: COMMON NORMALS: no JVD, regular rate, regular rhythm, S1 normal heart sound, S2 normal heart sound, no gallops, no clicks, no murmurs and no rub JUGULAR VENOUS DISTENTION: no JVD RATE: regular rate RHYTHM: regular rhythm HEART SOUNDS: S1 normal and S2 normal GI: COMMON NORMALS: soft to palpation, non-tender, no hepatosplenomegaly and no masses INSPECTION: Yes normal to inspection PALPATION: Yes soft and Yes no hepatosplenomegaly : COMMON NORMALS: Yes no CVA tenderness BLADDER/KIDNEY EXAM: Yes no CVA tenderness Back/Pelvis: COMMON NORMALS: no CVA tenderness, thoracic and lumbar spine normal to inspection, no thoracic nor lumbar tenderness and thoraco-lumbar ROM normal Extremity: COMMON NORMALS: normal to inspection, full ROM, normal capillary refill, no joint enlargement, no clubbing, cyanosis or edema and no calf tenderness Neuro: COMMON NORMALS: oriented x3, CN's II-XII intact bilaterally, moves all extremities, no focal motor deficits and no sensory deficits noted MENINGEAL SIGNS: Yes no meningeal signs Psych: COMMON NORMALS: mental status grossly normal, thought process normal, cooperative, affect normal, speech normal and activity/motor behavior normal APPEARANCE: Yes well kempt SPEECH: Yes normal speech THOUGHT PROCESS: normal thought process Skin: COMMON NORMALS: no rashes or lesions noted, skin turgor normal, no vivek dice, no petechiae and no mottling GENERAL SKIN EXAM: no rashes or lesions noted and turgor normal Course Vital Signs: Vital signs: Vital Signs Temperature 97.5 F L 12/15/19 18:51 Pulse Rate 81 12/15/19 21:01 Respiratory Rate 16 12/15/19 20:56 Blood Pressure 126/63 12/15/19 20:56 Pulse Oximetry 96 12/15/19 21:01 MDM - Fall [facility] Narrative: Medical decision making narrative: Tashi is a nice 64-year-old male who comes in with a syncopal spell from hypoglycemia. His blood sugar is stayed up with just oral loading of glucose from the senior living. The patient is asymptomatic here. His white count is elevated and he has a mild UTI. There is question whether his chest x-ray shows a resolving pneumonia or a new pneumonia in the right lower lobe. I believe with all of these factors combined he would be benefited from being observed in the hospital overnight to see if pneumonia presents itself and his breathing eases. I believe his breathing is secondary to congestive heart failure. And pneumonia or something else such as a COPD exacerbation by a virus could also be causing his symptoms. We will treat his UTI and pneumonia with Zosyn. The case was endorsed to Dr. Cat and she is agreeable to admission. Further care be dictated by her. Lab Data: Attestation: I reviewed the patient's lab results. Labs: Lab Results 12/15/19 12/15/19 12/15/19 Range/Units 19:34 19:34 19:34 WBC 23.9 H (4.0-10.0) 10^3/ uL RBC 4.17 (4.1-5.3) 10^6/u L Hgb 11.9 (11.7-16.6) g/dL Hct 38.2 L (42.0-52.0) % MCV 91.6 (80-94) fL MCH 28.5 (28.0-34.0) pg MCHC 31.2 (30.0-36.0) g/dL RDW 14.5 (12.1-15.1) % Plt Count 449 H (130-400) 10^3/c mm MPV 9.5 (7.4-10.4) fL Neut % (Auto) 82.8 % Lymph % (Auto) 7.7 % Jerome % (Auto) 6.2 % Eos % (Auto) 1.6 % Baso % (Auto) 0.5 % Neut # (Auto) 19.8 H (1.8-7.7) 10^3/u L Lymph # (Auto) 1.8 (0.8-4.8) 10^3/u L Jerome # (Auto) 1.5 H (0.2-0.9) 10^3/u L Eos # (Auto) 0.4 (0.0-0.8) 10^3/u L Baso # (Auto) 0.1 (0.0-0.1) 10^3/u L Nucleated RBC % (a uto) 0 % Nucleated RBCs # 0.0 /100WBC PT 12.80 (10.5-13.3) SECO NDS INR 0.96 (0.8-1.2) Specimen Type Sample Site ABG pH (7.35-7.45) ABG pCO2 (35-45) mmHg ABG pO2 (80.0-100.0) mmH g ABG HCO3 (22-26) mmol/L ABG Base Excess (-2.0-2.0) mmol/ L Pop Test Hematocrit (42-52) % O2 Delivery Device Embedded Software Test Engineer ID Sodium 138 (136-145) mmol/L Potassium 4.7 (3.5-5.1) mmol/L Chloride 97 L (98-107) mmol/L Carbon Dioxide 26 (22-29) mmol/L Anion Gap 19.7 H (5-19) BUN 41 H (8-23) mg/dL Creatinine 2.2 H (0.7-1.2) mg/dL GFR Calculation 30.3 L (90-130) mL/min Glucose 99 (65-115) mg/dL POC Glucose (70-110) mg/dL Calculated Osmolal ity 284 L (285-295) mOsm/k g Lactic Acid (0.5-2.2) mmol/L Calcium 9.2 (8.5-10.5) mg/dL Total Bilirubin 0.2 (0.15-1.2) mg/dL AST 23 (0-40) U/L ALT 21 (0-41) U/L Alkaline Phosphata se 100 (40-130) IU/L Troponin T Baselin e (0-15) ng/mL Troponin T 120 Min deonte (0-15) ng/mL Delta Troponin T (0-10) ABS# NT-Pro-B Natriuret Pep 3590 H (0-125) pg/mL Total Protein 7.3 (6.6-8.7) g/dL Albumin 3.6 (3.5-5.2) g/dL Globulin 3.7 (1.3-4.6) g/dL Urine Color (Yellow) Urine Appearance (CLEAR) Urine pH (5-7) Ur Specific Gravit y (1.005-1.030) Urine Protein (Negative) Urine Glucose (UA) (Normal) Urine Ketones (Negative) Urine Blood (Negative) Urine Nitrate (Negative) Urine Bilirubin (NEGATIVE) Urine Urobilinogen (Negative) mg/dL Ur Leukocyte Erlinda ase (Negative) Urine RBC (0-2) /hpf Urine WBC (0-5) /hpf Ur Squamous Epith Cells (0-5) Urine Bacteria (NONE) Coarse Granular Ca sts /lpf 12/15/19 12/15/19 12/15/19 Range/Units 19:34 20:32 20:32 WBC (4.0-10.0) 10^3/ uL RBC (4.1-5.3) 10^6/u L Hgb (11.7-16.6) g/dL Hct (42.0-52.0) % MCV (80-94) fL MCH (28.0-34.0) pg MCHC (30.0-36.0) g/dL RDW (12.1-15.1) % Plt Count (130-400) 10^3/c mm MPV (7.4-10.4) fL Neut % (Auto) % Lymph % (Auto) % Jerome % (Auto) % Eos % (Auto) % Baso % (Auto) % Neut # (Auto) (1.8-7.7) 10^3/u L Lymph # (Auto) (0.8-4.8) 10^3/u L Jerome # (Auto) (0.2-0.9) 10^3/u L Eos # (Auto) (0.0-0.8) 10^3/u L Baso # (Auto) (0.0-0.1) 10^3/u L Nucleated RBC % (a uto) % Nucleated RBCs # /100WBC PT (10.5-13.3) SECO NDS INR (0.8-1.2) Specimen Type Sample Site ABG pH (7.35-7.45) ABG pCO2 (35-45) mmHg ABG pO2 (80.0-100.0) mmH g ABG HCO3 (22-26) mmol/L ABG Base Excess (-2.0-2.0) mmol/ L Pop Test Hematocrit (42-52) % O2 Delivery Device Embedded Software Test Engineer ID Sodium (136-145) mmol/L Potassium (3.5-5.1) mmol/L Chloride (98-107) mmol/L Carbon Dioxide (22-29) mmol/L Anion Gap (5-19) BUN (8-23) mg/dL Creatinine (0.7-1.2) mg/dL GFR Calculation (90-130) mL/min Glucose (65-115) mg/dL POC Glucose (70-110) mg/dL Calculated Osmolal ity (285-295) mOsm/k g Lactic Acid 1.7 (0.5-2.2) mmol/L Calcium (8.5-10.5) mg/dL Total Bilirubin (0.15-1.2) mg/dL AST (0-40) U/L ALT (0-41) U/L Alkaline Phosphata se (40-130) IU/L Troponin T Baselin e 64 H (0-15) ng/mL Troponin T 120 Min deonte 66.20 H (0-15) ng/mL Delta Troponin T 2.20 (0-10) ABS# NT-Pro-B Natriuret Pep (0-125) pg/mL Total Protein (6.6-8.7) g/dL Albumin (3.5-5.2) g/dL Globulin (1.3-4.6) g/dL Urine Color (Yellow) Urine Appearance (CLEAR) Urine pH (5-7) Ur Specific Gravit y (1.005-1.030) Urine Protein (Negative) Urine Glucose (UA) (Normal) Urine Ketones (Negative) Urine Blood (Negative) Urine Nitrate (Negative) Urine Bilirubin (NEGATIVE) Urine Urobilinogen (Negative) mg/dL Ur Leukocyte Erlinda ase (Negative) Urine RBC (0-2) /hpf Urine WBC (0-5) /hpf Ur Squamous Epith Cells (0-5) Urine Bacteria (NONE) Coarse Granular Ca sts /lpf 12/15/19 12/15/19 12/15/19 Range/Units 20:45 21:35 21:56 WBC (4.0-10.0) 10^3/ uL RBC (4.1-5.3) 10^6/u L Hgb (11.7-16.6) g/dL Hct (42.0-52.0) % MCV (80-94) fL MCH (28.0-34.0) pg MCHC (30.0-36.0) g/dL RDW (12.1-15.1) % Plt Count (130-400) 10^3/c mm MPV (7.4-10.4) fL Neut % (Auto) % Lymph % (Auto) % Jerome % (Auto) % Eos % (Auto) % Baso % (Auto) % Neut # (Auto) (1.8-7.7) 10^3/u L Lymph # (Auto) (0.8-4.8) 10^3/u L Jerome # (Auto) (0.2-0.9) 10^3/u L Eos # (Auto) (0.0-0.8) 10^3/u L Baso # (Auto) (0.0-0.1) 10^3/u L Nucleated RBC % (a uto) % Nucleated RBCs # /100WBC PT (10.5-13.3) SECO NDS INR (0.8-1.2) Specimen Type Arterial Sample Site Brachial, left ABG pH 7.45 (7.35-7.45) ABG pCO2 38.1 (35-45) mmHg ABG pO2 121.0 H (80.0-100.0) mmH g ABG HCO3 26.1 H (22-26) mmol/L ABG Base Excess 2.0 (-2.0-2.0) mmol/ L Pop Test N/a Hematocrit 33.6 L (42-52) % O2 Delivery Device Room air Embedded Software Test Engineer ID [email or web address] Sodium (136-145) mmol/L Potassium (3.5-5.1) mmol/L Chloride (98-107) mmol/L Carbon Dioxide (22-29) mmol/L Anion Gap (5-19) BUN (8-23) mg/dL Creatinine (0.7-1.2) mg/dL GFR Calculation (90-130) mL/min Glucose (65-115) mg/dL POC Glucose 156 (70-110) mg/dL Calculated Osmolal ity (285-295) mOsm/k g Lactic Acid (0.5-2.2) mmol/L Calcium (8.5-10.5) mg/dL Total Bilirubin (0.15-1.2) mg/dL AST (0-40) U/L ALT (0-41) U/L Alkaline Phosphata se (40-130) IU/L Troponin T Baselin e (0-15) ng/mL Troponin T 120 Min deonte (0-15) ng/mL Delta Troponin T (0-10) ABS# NT-Pro-B Natriuret Pep (0-125) pg/mL Total Protein (6.6-8.7) g/dL Albumin (3.5-5.2) g/dL Globulin (1.3-4.6) g/dL Urine Color Yellow (Yellow) Urine Appearance Clear (CLEAR) Urine pH 7 (5-7) Ur Specific Gravit y 1.010 (1.005-1.030) Urine Protein Neg (Negative) Urine Glucose (UA) Norm (Normal) Urine Ketones Negative (Negative) Urine Blood Neg (Negative) Urine Nitrate Negative (Negative) Urine Bilirubin Neg (NEGATIVE) Urine Urobilinogen Norm (Negative) mg/dL Ur Leukocyte Erlinda ase 1+ H (Negative) Urine RBC 0-4 H (0-2) /hpf Urine WBC 5-10 H (0-5) /hpf Ur Squamous Epith Cells Rare (0-5) Urine Bacteria 1+ H (NONE) Coarse Granular Ca sts 0-4 H /lpf Imaging Data^: Other CT: Radiologist's impression: [place] [address] CT Scan Report Signed Patient: Tashi Cole #: [id number] : 6Acct#:[id number] Age/Sex: 64 / MADM Date: 12/15/19 Loc: ERRoom/Bed: Attending Dr: Ordering Provider/Ordering MD: Ju Sosa DO Date of Service: 12/15/19 Procedure(s): CT cervical spin wo con* [id number] Accession Number(s): [id number] Report Number: [id number] PROCEDURE INFORMATION: Exam: CT Cervical Spine Without Contrast Exam date and time: 12/15/2019 6:56 PM Age: 64 years old Clinical indication: Pain and injury or trauma; Initial encounter; Blunt trauma; Neck pain; Patient HX: Fall out of wheelchair TECHNIQUE: Imaging protocol: Computed tomography images of the cervical spine without contrast. Total DLP: 908.47 mGy-cm Radiation optimization: All CT scans at this facility use at least one of these dose optimization techniques: automated exposure control; mA and/or kV adjustment per patient size (includes targeted exams where dose is matched to clinical indication); or iterative reconstruction. COMPARISON: XA FL barium swallow modifd 15706 10/26/2019 9:08 AM FINDINGS: Vertebrae: No acute fracture. Normal alignment. Soft tissues: Unremarkable. Lungs: Lung apices are normal. CT/CT cervical spin wo con* [id number] IMPRESSION: No acute abnormality. Radiation Dose CTDIVOL = (mGy): DLP = 908.47 (mGy-cm) Dictated By:Suleiman Dietz MD Signed By:Suleiman Dietz Date/Time:12/15/19 CT Head: Radiologist's impression: [address] [address] [address] Scan Report Signed Patient: Tashi Cole #: [id number] : 6Acct#:[id number] Age/Sex: 64 / MADM Date: 12/15/19 Loc: ERRoom/Bed: Attending Dr: Ordering Provider/Ordering MD: Ju Sosa DO Date of Service: 12/15/19 Procedure(s): CT head wo con* [id number] Accession Number(s): [id number] Report Number: [id number] PROCEDURE INFORMATION: Exam: CT Head Without Contrast Exam date and time: 12/15/2019 6:56 PM Age: 64 years old Clinical indication: Pain and injury or trauma; Fall; Initial encounter; Blunt trauma (contusions or hematomas); Headache not specified; Additional info: Winston/ams TECHNIQUE: Imaging protocol: Computed tomography of the head without contrast. Total DLP: 897.05 mGy-cm Radiation optimization: All CT scans at this facility use at least one of these dose optimization techniques: automated exposure control; mA and/or kV adjustment per patient size (includes targeted exams where dose is matched to clinical indication); or iterative reconstruction. COMPARISON: CT head wo con* [id number] 02/27/2017 3:37 PM FINDINGS: Brain: Encephalomalacia in the right frontal lobe. The romano-white differentiation is maintained. No hemorrhage. No edema. There are moderate periventricular and subcortical lucencies consistent with chronic microvascular ischemic changes. Ventricles: Ventricles and sulci are prominent consistent with age appropriate parenchymal volume loss. Bones/joints: Unremarkable. No acute fracture. Sinuses: Visualized sinuses are unremarkable. No fluid levels. Mastoid air cells: Visualized mastoid air cells are well aerated. Soft tissues: Unremarkable. CT/CT head wo con* [id number] IMPRESSION: No acute intracranial abnormality. Chronic microvascular ischemic changes. Radiation Dose CTDIVOL = (mGy): DLP = 897.05 (mGy-cm) Dictated By:Suleiman Dietz MD Signed By:Suleiman Dietzigned Date/Time:12/15/19 EKG Data^: EKG 1: Attestation: I personally reviewed and interpreted this EKG as follows: EKG interpretation date: 12/15/19 EKG interpretation time: 19:42 Interpretation: Normal sinus rhythm at 78 beats a minute, Q waves inferiorly, interventricular conduction delay, unchanged from previous. Discharge Plan Discharge Admit Provider: Amy Donohue Coding Level of Care Code ED Rock Crusher for Chg Fwd The documentation recorded by the Yoav wilkins Valerie R, accurately reflects the service I personally performed and the decisions made by Sheila morocho Eli N Dec 15, 2019 18:39
--- NOTE | 2019-12-15 18:48 | XR_ITS ---
WS: [id number] PORTABLE CHEST HISTORY: cough COMPARISON: 10/19/2019 Since prior examination significant improvement in aeration. Improved pulmonary venous congestion and scattered opacifications. There is a small residual RIGHT pleural effusion with atelectasis. Interst itial thickening and stranding in the RIGHT lower lung field. There are a few granulomata bilaterally . No pneumothorax. Cardiac size: Normal. Mediastinum/Aorta: No mediastinal widening. Calcified mediastinal and hilar lymph nodes. No osseous abnormality seen. XR/XR chest 1V portable [id number] IMPRESSION: 1. Overall improved pulmonary venous congestion since 10/19/2019 with minimal r esidual interstitial thickening, greatest in the RIGHT lower lobe. 2. Residual small RIGHT pleural effusion but improved.
--- NOTE | 2019-12-15 18:49 | ECG_ITS ---
Measurements Intervals [place] Rate: 78 P: 62 TX: 184 QRS: -9 QRSD: 138 T: 107 QT: 397 QTc: 455 SINUS RHYTHM INTRAVENTRICULAR CONDUCTION DELAY [130+ ms QRS DURATION] POSSIBLE ANTERIOR MYOCARDIAL INFARCTION , OF INDETERMINATE AGE [30 ms Q WAVE IN V3/V4, OR R < 0.2 mV IN V4] INFERIOR MYOCARDIAL INFARCTION , PROBABLY OLD [40+ ms Q WAVE AND/OR ST/T AB ABNORMALITY IN II/aVF] Compared to ECG 10/19/2019 05:57:33 Intraventricular conduction delay now present Myocardial infarct finding still present Electronically Signed On 12-16-2019 18:19:52 CDT by Rosa Wiggins M.D. [email or web address]
[2019-12-15 18:51] VITALS: BP 95/68; PULSE 86; RESP 20; TEMP 36.4; O2SAT 99; BMI 25.0
[2019-12-15 19:40] LABS: Basophils # 0.1 10^3/uL (0.0-0.1); Basophils % 0.5 %; Eosinophils # 0.4 10^3/uL (0.0-0.8); Eosinophils % 1.6 %; Hematocrit 38.2 % (42.0-52.0); Hemoglobin 11.9 g/dL (11.7-16.6); Lymphocytes # 1.8 10^3/uL (0.8-4.8); Lymphocytes % 7.7 %; Mean Corpuscular HGB Conc 31.2 g/dL (30.0-36.0); Mean Corpuscular Hemoglobin 28.5 pg (28.0-34.0); Mean Corpuscular Volume 91.6 fL (80-94); Mean Platelet Volume 9.5 fL (7.4-10.4); Monocytes # 1.5 10^3/uL (0.2-0.9); Monocytes % 6.2 %; Neutrophils # 19.8 10^3/uL (1.8-7.7); Neutrophils % 82.8 %; Nucleated Red Blood Cells % 0 %; Platelet Count 449 10^3/cmm (130-400); Red Blood Count 4.17 10^6/uL (4.1-5.3); Red Cell Distribution Width 14.5 % (12.1-15.1); White Blood Count 23.9 10^3/uL (4.0-10.0)
[2019-12-15 19:57] LABS: Troponin(5th) Baseline 64 ng/mL (0-15)
[2019-12-15 19:59] LABS: INR 0.96 (0.8-1.2)
[2019-12-15 20:06] LABS: Alanine Aminotransferase 21 U/L (0-41); Albumin Level 3.6 g/dL (3.5-5.2); Alkaline Phosphatase 100 IU/L (40-130); Anion Gap 19.7 (5-19); Aspartate Amino Transferase 23 U/L (0-40); Blood Urea Nitrogen 41 mg/dL (8-23); Calcium 9.2 mg/dL (8.5-10.5); Carbon Dioxide 26 mmol/L (22-29); Chloride 97 mmol/L (98-107); Globulin 3.7 g/dL (1.3-4.6); Glomerular Filtration Rate 30.3 mL/min (90-130); Glucose 99 mg/dL (65-115); NT Pro B Type Natriuretic Pept 3590 pg/mL (0-125); Osmolality Calculated 284 mOsm/kg (285-295); Potassium 4.7 mmol/L (3.5-5.1); Sodium 138 mmol/L (136-145); Total Bilirubin 0.2 mg/dL (0.15-1.2); Total Protein 7.3 g/dL (6.6-8.7)
[2019-12-15] MEDS: piperacillin-tazobactam 3.375 GM in sodium chloride 0.9% (plus) 50 ML IV (20:45)
[2019-12-15] MEDS: ipratropium-albuterol 3 mL Neb 9 ML INHALATION (20:46)
[2019-12-15] MEDS: sodium chloride 0.9% 1,000 ML 100 ML IV (20:46)
[2019-12-15 20:47] VITALS: PULSE 78; RESP 17; O2SAT 95
--- NOTE | 2019-12-15 20:49 | ECG_ITS ---
Measurements Intervals [place] Rate: 78 P: 67 TN: 181 QRS: 0 QRSD: 138 T: 105 QT: 412 QTc: 472 SINUS RHYTHM INTRAVENTRICULAR CONDUCTION DELAY [130+ ms QRS DURATION] POSSIBLE ANTERIOR MYOCARDIAL INFARCTION , OF INDETERMINATE AGE [30 ms Q WAVE IN V3/V4, OR R < 0.2 mV IN V4] INFERIOR MYOCARDIAL INFARCTION , PROBABLY OLD [40+ ms Q WAVE AND/OR ST/T AB ABNORMALITY IN II/aVF] Compared to ECG 10/19/2019 05:57:33 Intraventricular conduction delay now present Myocardial infarct finding still present Electronically Signed On 12-16-2019 18:23:01 CDT by Rosa Wiggins M.D. [email or web address]
[2019-12-15 20:56] VITALS: BP 126/63; PULSE 83; RESP 16; O2SAT 98
[2019-12-15 20:59] LABS: ABG PCO2 38.1 mmHg (35-45); ABG PH Result 7.45 (7.35-7.45); Arterial Blood Gas Hematocrit 33.6 % (42-52); Blood Gas Sample Site Brachial, left; Blood Gas Sample Type Arterial; HCO3 ABG 26.1 mmol/L (22-26); Oxygen Device ROOM AIR
[2019-12-15 21:01] VITALS: PULSE 81; O2SAT 96
[2019-12-15 21:10] LABS: Lactic Sepsis W/Reflex 1.7 mmol/L (0.5-2.2)
[2019-12-15 22:00] LABS: Glucose Point of Care 156 mg/dL (70-110)
[2019-12-15 22:02] LABS: Bilirubin Urine Neg (NEGATIVE); Blood Urine Neg (Negative); Glucose Urine UA Norm (Normal); Ketones Urine Negative (Negative); Leukocyte Esterase Urine 1+ (Negative); Nitrate Urine Negative (Negative); Protein Urine Neg (Negative); RBC Urine 0-4 /hpf (0-2); Urine Appearance Clear (CLEAR); Urine Color Yellow (Yellow); Urobilinogen Urine Norm (Negative); pH Urine 7 (5-7)
[2019-12-15 22:03] LABS: Add Urine Culture? No; Bacteria Urine 1+; Coarse Granular Casts Urine 0-4 /lpf; Squamous Epithelial Cell Urine RARE (0-5)
[2019-12-15 22:30] VITALS: BP 122/68; PULSE 84; RESP 14; O2SAT 96
[2019-12-15] MEDS: nitroglycerin 1 gm/inch oint Pkt 1 INCH TOPICAL (22:39)
[2019-12-15] MEDS: FUROsemide 10 mg/mL SDV 4mL 40 MG IVP (22:40)
[2019-12-15 23:00] VITALS: BP 127/74; PULSE 74; RESP 16
[2019-12-15 23:18] LABS: Influenza A by IFA Negative (Negative); Influenza B by IFA Negative (Negative)
--- NOTE | 2019-12-15 23:18 | P.HP_ITS ---
Providers/Chief Complaint Admitting Physician: Amy Donohue MD Primary Care Provider: Hiram Black DO Chief Complaint: FALL History of Present Illness Tashi Cole is a 64 year old male who presented to the emergency room after passing out. He states that his blood sugar had gotten low. That [place] they gave him glucagon injection and some orange juice. He was sitting in his wheelchair at the time. He fell out of his wheelchair and landed on the left side. He has a bruise to his left rastafarian and a bruise and small tear on his left hand. Patient does report decreased appetite lately. He was diagnosed with influenza A on October 21 and given a course of Tamiflu. Since that time he just has not felt well. He currently denies any other symptoms recently. No reported fever, chills, cough, shortness of breath, sore throat, nausea, vomiting, changes in bowel movements, abdominal pain or difficulty with urination. He continues to smoke about a half a pack a day going outside for these endeavors. He admits that recent changes have made things different than they normally are but denies any significant depression as a cause of his decreased appetite presently. Patient denies any recent changes in medications, particularly those for diabetes. Denies any other episodes of hypoglycemia recently. In the emergency room, patient was evaluated and found to have an elevated white blood count and chest x-ray findings suspicious for infiltrate in the right lower lobe. Urinalysis was slightly abnormal. Patient was noted to have some increased work of breathing while in the emergency room. He received a dose of Zosyn for empiric coverage and request was made for admission. History is obtained from the patient.. Review of Systems Const: Denies: fever, chills or body aches Eyes: Denies: change in vision ENMT: Denies: throat pain or nasal discharge Card: Denies: chest pain, palpitations or edema Resp: Denies: shortness of breath, productive cough or non-productive cough GI: Denies: abdominal pain, vomiting, diarrhea or constipation : Denies: difficulty urinating or urinary frequency Musc: Denies: neck pain, back pain or extremity pain Skin/Breast: Denies: rash or sores Neuro: Reports: difficulty walking (chronic due to bikateral bka, wheelchair); Denies: numbness in extremities, weakness in extremities or changes in sensation Psych: Denies: anxiety or depression Ashvin/Lymph: Reports: other (bruising left rastafarian and left hand after fall) Medications/Allergies Home Medications Medication Instructions Recorded Confirmed Last Taken Type dextromethorphan-guaifenesin 1 tab PO Q12H PRN 12/15/19 12/15/19 Unknown History [Mucinex DM] magnesium hydroxide [Milk of 5 ml PO DAILY PRN 12/15/19 12/15/19 Unknown History Magnesia] mv,Ca,min-iron iiox-RT-naizkh 1 tab PO DAILY 12/15/19 12/15/19 12/15/19 History [Hair,Skin and Nails] ondansetron HCl [Zofran] 4 mg PO TID PRN 12/15/19 12/15/19 Unknown History Allergies Allergy/AdvReac Type Severity Reaction Status Date / Time tramadol Allergy ADR-Vomitin Verified 11/21/19 15:28 g Additional Medication Information Additional Medication Information: Home Medications Medication Instructions Recorded Confirmed Type furosemide 40 mg PO BID #5 tab 10/04/19 12/15/19 Rx Lantus U-100 Insulin See Rx Instructions .ROUTE .COMPLEX 10/19/19 12/15/19 History acetaminophen 650 mg PO Q4-5H PRN 10/19/19 12/15/19 History aspirin 81 mg PO DAILY 10/19/19 12/15/19 History bisacodyl 10 mg HI DAILY PRN 10/19/19 12/15/19 History budesonide 2 ml INHALATION BID 10/19/19 12/15/19 History bupropion HCl [Wellbutrin SR] 150 mg PO Q12H 10/19/19 12/15/19 History carvedilol 3.125 mg PO BID 10/19/19 12/15/19 History citalopram [Celexa] 20 mg PO DAILY 10/19/19 12/15/19 History clopidogrel [Plavix] 75 mg PO DAILY 10/19/19 12/15/19 History glucagon HCl 1 mg IM Q20M PRN 10/19/19 12/15/19 History insulin lispro [Humalog KwikPen See Rx Instructions .ROUTE .COMPLEX 10/19/19 12/15/19 History Insulin] lisinopril 2.5 mg PO DAILY 10/19/19 12/15/19 History loratadine 10 mg PO DAILY 10/19/19 12/15/19 History magnesium L-lactate [Magtab] 84 mg PO DAILY 10/19/19 12/15/19 History nitroglycerin 0.4 mg SUBLINGUAL Q5M PRN 10/19/19 12/15/19 History polyethylene glycol 3350 [Miralax] 17 g PO DAILY PRN 10/19/19 12/15/19 History potassium chloride 20 meq PO DAILY 10/19/19 12/15/19 History rosuvastatin [Crestor] 20 mg PO DAILY 10/19/19 12/15/19 History tamsulosin 0.4 mg PO DAILY 10/19/19 12/15/19 History dextromethorphan-guaifenesin 1 tab PO Q12H PRN 12/15/19 12/15/19 History [Mucinex DM] magnesium hydroxide [Milk of 5 ml PO DAILY PRN 12/15/19 12/15/19 History Magnesia] mv,Ca,min-iron gsmx-TW-xtzviv 1 tab PO DAILY 12/15/19 12/15/19 History [Hair,Skin and Nails] ondansetron HCl [Zofran] 4 mg PO TID PRN 12/15/19 12/15/19 History PFSH Acute PFSH: Medical History (Updated 12/16/19 @ 01:38 by Amy Donohue MD) Abnormal cystoscopy Anxiety BPH (benign prostatic hyperplasia) Chronic systolic CHF (congestive heart failure) CKD stage 3 secondary to diabetes COPD (chronic obstructive pulmonary disease) Coronary artery disease Depression Dysphagia Hypertension Peripheral vascular disease Type 2 diabetes mellitus Surgical History Coronary angioplasty status History of carpal tunnel surgery History of hip surgery S/P bilateral BKA (below knee amputation) S/P right coronary artery (RCA) stent placement Family History Other CAD (coronary artery disease) Diabetes Social History Smoking and tobacco status: current every day smoker cigarettes Packs smoked per day: 0.5 Years cigarettes smoked: 59 Alcohol intake: never Lives independently: No Housing: Snf Current occupational status: retired and disabled History of recent travel: No Vitals/I&O/Wt Last Vital Signs Temp 97.5 F L 12/15/19 18:51 Pulse 74 12/15/19 23:00 Resp 16 12/15/19 23:00 BP 127/74 12/15/19 23:00 Pulse Ox 96 12/15/19 21:01 Weight last 48 hrs Weight 72.575 kg Physical Exam Const: COMMON NORMALS: oriented x3 and alert GENERAL APPEARANCE: cooperative HENMT: COMMON NORMALS: normocephalic and moist oral mucous membranes HEAD & SCALP: not atraumatic (bruising left rastafarian, non tender) Eye: COMMON NORMALS: PERRL and EOMs intact bilaterally Neck/C-Spine: COMMON NORMALS: supple Resp: COMMON NORMALS: no use of accessory muscles EFFORT & INSPECTION: Yes actively coughing non-productive AUSCULTATION: wheezes scattered wheezes Cardio: COMMON NORMALS: regular rate, regular rhythm and no murmurs JUGULAR VENOUS DISTENTION: no JVD GI: COMMON NORMALS: soft to palpation and non-tender AUSCULTATION: Yes normoactive bowel sounds Extremity: NARRATIVE EXTREMITY EXAM: Bilateral BKA with prosthetic sleeves and prostheses in place Neuro: COMMON NORMALS: moves all extremities SPEECH: speech normal Psych: MOOD & AFFECT: Yes flat affect Skin: GENERAL SKIN EXAM: ecchymosis (left hand and left face) Data : 12/16/19 00:51 12/16/19 00:51 Other Labs: CT of the cervical spine and CT of the head without acute abnormalities. Chest x-ray with hazy opacity on the right decreased from previous. Other laboratory studies were reviewed. As I did not get this note signed before more blood work was drawn please see the labs below which are what I had at my disposal at the time of admission. Laboratory Tests 12/15/19 12/15/19 12/15/19 19:34 19:34 19:34 WBC 23.9 H Hgb 11.9 Hct 38.2 L Plt Count 449 H Neut % (Auto) 82.8 Lymph % (Auto) 7.7 Neut # (Auto) 19.8 H Lymph # (Auto) 1.8 ABG pH ABG pCO2 ABG pO2 Sodium 138 Potassium 4.7 Chloride 97 L Carbon Dioxide 26 BUN 41 H Creatinine 2.2 H Glucose 99 Troponin T Baseline 64 H Troponin T 120 Minute Delta Troponin T NT-Pro-B Natriuret Pep 3590 H Ur Leukocyte Esterase Urine WBC Urine Bacteria 12/15/19 12/15/19 12/15/19 20:32 20:45 21:35 WBC Hgb Hct Plt Count Neut % (Auto) Lymph % (Auto) Neut # (Auto) Lymph # (Auto) ABG pH 7.45 ABG pCO2 38.1 ABG pO2 121.0 H Sodium Potassium Chloride Carbon Dioxide BUN Creatinine Glucose Troponin T Baseline Troponin T 120 Minute 66.20 H Delta Troponin T 2.20 NT-Pro-B Natriuret Pep Ur Leukocyte Esterase 1+ H Urine WBC 5-10 H Urine Bacteria 1+ H A&P Assessment and plan (1) Syncope: Appears to be secondary to hypoglycemic episode although not fully clear at this point in time. He does have risk factors for arrhythmia and findings suggestive of possible infection. He was sitting in the wheelchair at the time, not trying to move. Did not lose consciousness. Denies any neurological symptoms otherwise, no chest pain, no change in breathing. No loss of bowel or bladder function. Status: Acute Qualifiers: Syncope type: unspecified Qualified Code(s): R55 - Syncope and collapse Code(s): R55 - Syncope and collapse (2) Hypoglycemia: Without known recent change in his medication regimen per him. He does admit to decreased appetite and less oral intake and is on insulin therapy so that may be all that this is related to. The anorexia has been present since he was diagnosed with the flu at the end of October. No other episodes of hypoglycemia prior to today though. Status: Acute Code(s): E16.2 - Hypoglycemia, unspecified (3) Leucocytosis: White count 23,000. Nonspecific pattern at the moment. No definitive lymphocytopenia or bandemia. Could be leukemoid reaction from acute event with syncope though with abnormalities noted on chest x-ray plus abnormal urinalysis do have to keep in mind possibility of an acute infectious process. Status: Acute Qualifiers: Leukocytosis type: unspecified Qualified Code(s): D72.829 - Elevated white blood cell count, unspecified Code(s): D72.829 - Elevated white blood cell count, unspecified (4) Type 2 diabetes mellitus: Chronically on insulin. Unclear to me exactly how much insulin he got today but he states he did not eat very much. No recent changes in medication management. A1c in September was 7.8. Status: Chronic Code(s): E11.9 - Type 2 diabetes mellitus without complications (5) Coronary artery disease: Denies recent issues with chest pain Status: Chronic Code(s): I25.10 - Atherosclerotic heart disease of [place] coronary artery without angina pectoris (6) COPD (chronic obstructive pulmonary disease): No wheezing noted on current examination but does have some cough that sounds primarily nonproductive at the moment. He himself denies exacerbation but admits that when he had the flu things were worse. That said in the emergency room he received steroids and breathing treatment due to wheezing noted on exam. Status: Chronic Code(s): J44.9 - Chronic obstructive pulmonary disease, unspecified (7) CKD stage 3 secondary to diabetes: Withslightly elevated creatinine from baseline that looks to be around 1.8. Status: Chronic Code(s): E11.22 - Type 2 diabetes mellitus with diabetic chronic kidney disease; N18.3 - Chronic kidney disease, stage 3 (moderate) (8) BPH (benign prostatic hyperplasia): Chronically on Flomax Status: Chronic Code(s): N40.0 - Benign prostatic hyperplasia without lower urinary tract symptoms (9) Peripheral vascular disease: Status post bilateral BKA Status: Chronic Code(s): I73.9 - Peripheral vascular disease, unspecified (10) Hypertension: Appears well controlled currently Status: Chronic Code(s): I10 - Essential (primary) hypertension (11) Chronic systolic CHF (congestive heart failure): Does not currently appear acute on examination but that is after he recei liban 40 mg of IV Lasix in the emergency room. BNP was elevated greater than 3000 Status: Chronic Code(s): I50.22 - Chronic systolic (congestive) heart failure (12) Nicotine dependence, cigarettes, with other nicotine-induced disorders: Continues to smoke about a half a pack a day Status: Chronic Code(s): F17.218 - Nicotine dependence, cigarettes, with other nicotine-induced disorders Additional A&P Information This is somewhat of a mixed picture. Patient was sent over here after a syncopal episode that sounds like it was probably related to hypoglycemia. He received glucagon at outside facility and sugars are normal presently. No reported change to diabetic medication regimen though he did report decreased oral intake lately as he just does not feel hungry. In the ED he clinically was felt to have some COPD plus or minus CHF and received treatment for such. He also had an abnormal urinalysis as well as a opacity in the right base suspicious for either residual or developing pneumonia. He had been diagnosed with the flu at the end of October and was treated with Tamiflu. Patient himself gives a fairly negative review of systems beyond the low blood sugar and falling. Hard to know exactly what has been going on lately or what is a change. Inpatient admission given unclear reason for hypoglycemia leading to syncope combined with elevated white count of currently unclear etiology, and with current restrictions in place for disposition back to skilled facility in light of COVID situation. The patient developed a cough while in the emergency room and had abnormalities on chest x-ray, COVID testing has been collected Check procalcitonin Follow-up official chest x-ray report Continue Zosyn empirically for now Follow-up pending blood cultures Follow-up urine culture Sliding scale insulin currently, monitor blood sugars closely for recurrent hypoglycemia Trend serial cardiac enzymes Telemetry monitoring Monitor I's and O's closely Neurochecks Home medications as ordered, I have not continued any further IV diuresis nor steroids at the moment Breathing treatments if needed Lovenox for DVT prophylaxis supportive care otherwise Nicotine patch if desired Plans discussed with patient and he was given an opportunity to ask questions Allow natural as per patient's preferences, reviewed with him in the ED Attestations Medical Necessity Statement*: Anticipated stay greater than 2 midnights in a patient originating from a custodial with issues as described. Requires further evaluation and treatment as noted. Will have to be monitored for several days before can be dispositioned back to facility under the circumstances as well. Coding Level of Care Code Acute Pediatric Medical Assistant for [facility] Fwd Diagnoses Syncope R55 Syncope type: unspecified Hypoglycemia E16.2 Leucocytosis D72.829 Leukocytosis type: unspecified Type 2 diabetes mellitus E11.9 Coronary artery disease I25.10 COPD (chronic obstructive pulmonary disease) J44.9 CKD stage 3 secondary to diabetes E11.22; N18.3 BPH (benign prostatic hyperplasia) N40.0 Peripheral vascular disease I73.9 Hypertension I10 Chronic systolic CHF (congestive heart failure) I50.22 Nicotine dependence, cigarettes, with other nicotine-induced disorders F17.218
[2019-12-16] VITALS (12 sets, daily range): BP systolic 123–143; BP diastolic 70–88; PULSE 88–106; RESP 16–22; TEMP 36–37; O2SAT 93–96
[2019-12-16 00:59] LABS: Basophils % 0.4 %; Eosinophils # 0.1 10^3/uL (0.0-0.8); Eosinophils % 0.4 %; Hematocrit 34.6 % (42.0-52.0); Hemoglobin 11.1 g/dL (11.7-16.6); Lymphocytes # 0.7 10^3/uL (0.8-4.8); Mean Corpuscular HGB Conc 32.1 g/dL (30.0-36.0); Mean Corpuscular Hemoglobin 28.4 pg (28.0-34.0); Mean Corpuscular Volume 88.5 fL (80-94); Mean Platelet Volume 9.5 fL (7.4-10.4); Monocytes # 0.2 10^3/uL (0.2-0.9); Monocytes % 1.4 %; Neutrophils # 10.4 10^3/uL (1.8-7.7); Nucleated Red Blood Cells % 0 %; Platelet Count 409 10^3/cmm (130-400); Red Blood Count 3.91 10^6/uL (4.1-5.3); Red Cell Distribution Width 14.4 % (12.1-15.1); White Blood Count 11.4 10^3/uL (4.0-10.0)
[2019-12-16 01:20] LABS: Troponin 5 6HR 51.54 ng/mL (0-15)
--- NOTE | 2019-12-16 01:59 | PC.PHAR ---
Pharmacokinetic dosing service Date: 12/16/19 Time: 020 Objective: Patient: Tashi Cole Floor: 260-1 Age: 64 yo Serum creatinine: 2.2 mg/dL Height: 67.0 Inches Weight (kg): 72.575 Diagnosis: Relevant medical/social history: Cultures and sensitivities: Other labs: Assessment: IBW (kg): 66.10 Dosing wt(kg): 72.575 Estimated Creatinine clearance (ml/min): 31.7 CRCL method: Cockcroft and Gault using ibw(default). Drug selected: Vancomycin Loading dose (mg): 0 Vd (liters): 65.3 (factor used: 0.9 L/kg) Jose (hr-1): 0.031 Half life (hrs): 22.36 Recommended dose: 1000 mg Interval: 24 hrs Infusion time (hrs): 1.5 Predicted peak (mcg/mL): 28.5 Predicted trough (mcg/mL): 14.19 Total body weight is being used for vancomycin dosing. Renal function is stable [ ] /unstable [ ] Recommendations: Give Vancomycin 1000 mg q 24 hrs with an expected Cpeak of 28.5 mcg/ml and an expected Ctrough of 14.19 mcg/ml Renal dosing of other antibiotics (review renal dosing of other medications and list guidelines here): Thank you for the consult, will continue to follow. Signature: Verna Beauchamp [facility]
[2019-12-16 02:00] LABS: Anion Gap 18.6 (5-19); Blood Urea Nitrogen 46 mg/dL (8-23); Calcium 8.8 mg/dL (8.5-10.5); Carbon Dioxide 22 mmol/L (22-29); Chloride 99 mmol/L (98-107); Creatinine Clr Calc Pharmacy 38.1611; Glomerular Filtration Rate 35.9 mL/min (90-130); Glucose 178 mg/dL (65-115); Osmolality Calculated 282 mOsm/kg (285-295); Potassium 4.6 mmol/L (3.5-5.1); Sodium 135 mmol/L (136-145)
[2019-12-16 02:30] LABS: Procalcitonin 0.21 ng/mL (0-0.5)
[2019-12-16] MEDS: vancomycin 1,000 MG in sodium chloride 0.9% 250 ML 250 MG IV (03:44)
[2019-12-16] MEDS: enoxaparin 30 mg/0.3 mL Syringe SUBCUT (03:44)
[2019-12-16 06:15] LABS: Basophils % 0.1 %; Hematocrit 36.5 % (42.0-52.0); Hemoglobin 11.5 g/dL (11.7-16.6); Lymphocytes # 0.7 10^3/uL (0.8-4.8); Mean Corpuscular HGB Conc 31.5 g/dL (30.0-36.0); Mean Corpuscular Hemoglobin 28.9 pg (28.0-34.0); Mean Corpuscular Volume 91.7 fL (80-94); Mean Platelet Volume 9.6 fL (7.4-10.4); Monocytes # 0.1 10^3/uL (0.2-0.9); Monocytes % 1.2 %; Neutrophils # 7.2 10^3/uL (1.8-7.7); Neutrophils % 88.2 %; Nucleated Red Blood Cells % 0 %; Platelet Count 387 10^3/cmm (130-400); Red Blood Count 3.98 10^6/uL (4.1-5.3); Red Cell Distribution Width 14.6 % (12.1-15.1); White Blood Count 8.2 10^3/uL (4.0-10.0)
[2019-12-16] MEDS: piperacillin-tazobactam 3.375 GM in sodium chloride 0.9% (plus) 50 ML IV ×3 (06:44→21:04)
[2019-12-16] MEDS: budesonide 0.5 mg/2 mL Neb INHALATION (09:21)
[2019-12-16] MEDS: ipratropium-albuterol 3 mL Neb INHALATION (09:21)
[2019-12-16] MEDS: loratadine 10 mg Tablet PO (09:41)
[2019-12-16] MEDS: aspirin 81 mg EC Tablet PO (09:41)
[2019-12-16] MEDS: buPROPion SR (12 HR) 150 mg Tablet PO ×2 (09:41→21:03)
[2019-12-16] MEDS: lisinopril 2.5 mg Tablet PO (09:41)
[2019-12-16] MEDS: carvedilol 3.125 mg Tablet PO ×2 (09:41→21:03)
[2019-12-16] MEDS: tamsulosin 0.4 mg Capsule PO (09:42)
[2019-12-16] MEDS: clopidogrel 75 mg Tablet PO (09:42)
[2019-12-16] MEDS: atorvastatin 40 mg Tablet 80 MG PO (09:42)
[2019-12-16] MEDS: citalopram 20 mg Tablet PO (09:42)
[2019-12-16] MEDS: FUROsemide 40 mg Tablet PO ×2 (09:42→17:53)
[2019-12-16 09:45] LABS: Glucose Point of Care 294 mg/dL (70-110)
[2019-12-16 11:34] LABS: Glucose Point of Care 395 mg/dL (70-110)
[2019-12-16] MEDS: magnesium lactate 84 mg Tablet PO (12:13)
--- NOTE | 2019-12-16 15:26 | PM.PN ---
Subjective Subjective: Interval history: He reports he is feeling better. Still having some mild shortness of breath. He is awake and alert. Feels more energetic. Vitals/I&O/Wt Last Vital Signs Temp 98.2 F 12/16/19 11:16 Pulse 97 12/16/19 11:16 Resp 18 12/16/19 11:16 BP 141/79 12/16/19 11:16 Pulse Ox 93 12/16/19 11:16 12/16/19 12/16/19 12/16/19 06:59 14:59 22:59 Intake Total 530 / 530 Output Total 175 / 175 Balance 355 / 355 Weight last 48 hrs Weight 72.575 kg Physical Exam Const: COMMON NORMALS: no apparent distress and oriented x3 HENMT: COMMON NORMALS: oropharynx normal Neck/C-Spine: COMMON NORMALS: no JVD Resp: COMMON NORMALS: normal respiratory effort AUSCULTATION: rhonchi (Left) Cardio: COMMON NORMALS: no JVD, regular rhythm, S1 normal heart sound, S2 normal heart sound and no murmurs RHYTHM: regular rhythm HEART SOUNDS: S1 normal and S2 normal GI: COMMON NORMALS: normal to inspection, nondistended, normoactive bowel sounds, soft to palpation and non-tender PALPATION: Yes soft Extremity: COMMON NORMALS: no joint enlargement and no pedal edema NARRATIVE EXTREMITY EXAM: Bilateral lower amputee Neuro: COMMON NORMALS: oriented x3 and moves all extremities Skin: COMMON NORMALS: no rashes or lesions noted GENERAL SKIN EXAM: no rashes or lesions noted Data : 12/16/19 05:45 12/16/19 00:51 A&P Assessment and plan (1) Syncope: Without recurrence. He is feeling very well. Suspected secondary to hypoglycemia. Perhaps pneumonia, CHF exacerbation and possible UTI. Troponin mildly elevated, without rise, perhaps due to acute pulmonary issues, with mismatch in supply and demand. Acute KS is not suspected. Will monitor on telemetry. Will request for orthostatic pressures laying to sitting. Status: Acute Qualifiers: Syncope type: unspecified Qualified Code(s): R55 - Syncope and collapse Code(s): R55 - Syncope and collapse (2) Hypoglycemia: For now his Lantus has been held. On sliding scale insulin. Consistent carbohydrate diet. Glucose improved. Reported decreased appetite since influenza infection in October. On 18 units Lantus. Will need to decrease dose on discharge. Status: Acute Code(s): E16.2 - Hypoglycemia, unspecified (3) Leucocytosis: Suspected due to pneumonia, less likely UTI. Continue Zosyn, vancomycin. Leukocytosis resolving. No definitive lymphocytopenia or bandemia. Status: Acute Qualifiers: Leukocytosis type: unspecified Qualified Code(s): D72.829 - Elevated white blood cell count, unspecified Code(s): D72.829 - Elevated white blood cell count, unspecified (4) Type 2 diabetes mellitus: Chronically on insulin. No recent changes in medication management. A1c in September was 7.8. Status: Chronic Code(s): E11.9 - Type 2 diabetes mellitus without complications (5) Coronary artery disease: Denies recent issues with chest pain Status: Chronic Code(s): I25.10 - Atherosclerotic heart disease of [place] coronary artery without angina pectoris (6) COPD (chronic obstructive pulmonary disease): No wheezing currently, does have some rhonchi, reportedly perhaps wheezing in the emergency room. He is improving. Currently on room air. Status: Chronic Code(s): J44.9 - Chronic obstructive pulmonary disease, unspecified (7) CKD stage 3 secondary to diabetes: Withslightly elevated creatinine from baseline that looks to be around 1.8. Slightly better today, down to 1.9. Status: Chronic Code(s): E11.22 - Type 2 diabetes mellitus with diabetic chronic kidney disease; N18.3 - Chronic kidney disease, stage 3 (moderate) (8) BPH (benign prostatic hyperplasia): Chronically on Flomax Status: Chronic Code(s): N40.0 - Benign prostatic hyperplasia without lower urinary tract symptoms (9) Peripheral vascular disease: Status post bilateral BKA Status: Chronic Code(s): I73.9 - Peripheral vascular disease, unspecified (10) Hypertension: At goal. Status: Chronic Code(s): I10 - Essential (primary) hypertension (11) Chronic systolic CHF (congestive heart failure): Received Lasix. Overall he feels improved. Continue usual dose of Lasix. Status: Chronic Code(s): I50.22 - Chronic systolic (congestive) heart failure (12) Nicotine dependence, cigarettes, with other nicotine-induced disorders: Continues to smoke about a half a pack a day Status: Chronic Code(s): F17.218 - Nicotine dependence, cigarettes, with other nicotine-induced disorders Additional A&P Information Pneumonia: Continue antibiotics. Some rhonchi on exam. Overall is improving. Continue inhalers. Possible UTI: Continue Zosyn. Follow-up urine culture. Attestations Medical Necessity Statement*: Continue admission for assessment of management of pneumonia, possible UTI, mild CHF exacerbation. Coding Level of Care Code Acute Armor Reconnaissance Vehicle Driver for [facility] Fwd Diagnoses Syncope R55 Syncope type: unspecified Hypoglycemia E16.2 Leucocytosis D72.829 Leukocytosis type: unspecified Type 2 diabetes mellitus E11.9 Coronary artery disease I25.10 COPD (chronic obstructive pulmonary disease) J44.9 CKD stage 3 secondary to diabetes E11.22; N18.3 BPH (benign prostatic hyperplasia) N40.0 Peripheral vascular disease I73.9 Hypertension I10 Chronic systolic CHF (congestive heart failure) I50.22 Nicotine dependence, cigarettes, with other nicotine-induced disorders F17.218
[2019-12-16 17:15] LABS: Glucose Point of Care 429 mg/dL (70-110)
[2019-12-16 21:42] LABS: Glucose Point of Care 380 mg/dL (70-110)
[2019-12-16] MEDS: albuterol 8 gm MDI 2 PUFF INHALATION (23:52)
[2019-12-17] VITALS (10 sets, daily range): BP systolic 117–139; BP diastolic 67–79; PULSE 81–102; RESP 16–24; TEMP 36.7–37; O2SAT 92–98
[2019-12-17] MEDS: vancomycin 1,000 MG in sodium chloride 0.9% 250 ML 250 MG IV (01:30)
[2019-12-17] MEDS: piperacillin-tazobactam 3.375 GM in sodium chloride 0.9% (plus) 50 ML IV ×3 (05:23→22:13)
[2019-12-17] MEDS: enoxaparin 40 mg/0.4 mL Syringe SUBCUT (05:23)
[2019-12-17 05:35] LABS: Basophils # 0.1 10^3/uL (0.0-0.1); Basophils % 0.6 %; Eosinophils # 0.2 10^3/uL (0.0-0.8); Eosinophils % 1.7 %; Hematocrit 33.6 % (42.0-52.0); Hemoglobin 10.8 g/dL (11.7-16.6); Lymphocytes # 2.4 10^3/uL (0.8-4.8); Lymphocytes % 17.2 %; Mean Corpuscular HGB Conc 32.1 g/dL (30.0-36.0); Mean Corpuscular Hemoglobin 28.7 pg (28.0-34.0); Mean Corpuscular Volume 89.4 fL (80-94); Mean Platelet Volume 9.7 fL (7.4-10.4); Monocytes # 1.3 10^3/uL (0.2-0.9); Monocytes % 9.2 %; Neutrophils # 9.9 10^3/uL (1.8-7.7); Neutrophils % 70.2 %; Nucleated Red Blood Cells % 0 %; Platelet Count 402 10^3/cmm (130-400); Red Blood Count 3.76 10^6/uL (4.1-5.3); Red Cell Distribution Width 14.8 % (12.1-15.1); White Blood Count 14.1 10^3/uL (4.0-10.0)
[2019-12-17 05:59] LABS: Anion Gap 17.2 (5-19); Blood Urea Nitrogen 48 mg/dL (8-23); Calcium 8.8 mg/dL (8.5-10.5); Carbon Dioxide 24 mmol/L (22-29); Chloride 100 mmol/L (98-107); Glomerular Filtration Rate 27.4 mL/min (90-130); Glucose 230 mg/dL (65-115); Osmolality Calculated 289 mOsm/kg (285-295); Potassium 4.2 mmol/L (3.5-5.1); Sodium 137 mmol/L (136-145)
[2019-12-17 06:23] LABS: Glucose Point of Care 246 mg/dL (70-110)
[2019-12-17] MEDS: buPROPion SR (12 HR) 150 mg Tablet PO ×2 (09:33→21:38)
[2019-12-17] MEDS: atorvastatin 40 mg Tablet 80 MG PO (09:33)
[2019-12-17] MEDS: lisinopril 2.5 mg Tablet PO (09:33)
[2019-12-17] MEDS: FUROsemide 40 mg Tablet PO (09:34)
[2019-12-17] MEDS: clopidogrel 75 mg Tablet PO (09:34)
[2019-12-17] MEDS: tamsulosin 0.4 mg Capsule PO (09:35)
[2019-12-17] MEDS: loratadine 10 mg Tablet PO (09:35)
[2019-12-17] MEDS: carvedilol 3.125 mg Tablet PO ×2 (09:35→21:38)
[2019-12-17] MEDS: citalopram 20 mg Tablet PO (09:35)
[2019-12-17] MEDS: aspirin 81 mg EC Tablet PO (09:47)
[2019-12-17] MEDS: magnesium lactate 84 mg Tablet PO (09:47)
--- NOTE | 2019-12-17 11:08 | PC.CHAP ---
Pastoral Care Encounter/Spiritual Assessment Type of Contact [] Declined java developer consultant visit [] Patient/Family/Request visit [] Outpatient visit [] Follow-up visit [] Physician referral [] Code/Alert [x] Routine visit [] Staff referral [] Actively dying [] Patient sleeping [] Family support [] [] Out of room [] Palliative care [] [] Receiving care in room [] Pre-surgical visit [] Trauma [] Long length of stay [] ICU visit [] Other: Relational/Emotional Strength [x] Patient feels connected with others/family/visitors/staff [] Distress [] Loneliness/isolation [] Abandonment Spirituality of Patient [x] Person of Jodi [] Attends Tenriism of their Jodi [x] Believes in Prayer [x] Reads Bible or Taoism materials [] There are Spiritual issues to be addressed Manager Of Compensation Interventions [x] Prayer [x] Active listening [x] Non-anxious presence [x] Spiritual/emotional support [] Crisis/trauma care [x] Spiritual counseling [] Bereavement support [] Provided bereavement packet [] Provided Bible/devotional materials [] Provided toy/stuffed animal, coloring book to patient or family member [] Provided Communion [] Anointing/[place] [] Salvation [] Completed spiritual assessment [] Other: Impact on Illness or Injury [] Angry [] Fearful [] Anxious [] Often cries [] Exhaustion [] Unable to work [] Unable to attend evangelical [] Unable to walk/stand [] Unable to read [] Unable to drive [] Unable to eat/drink [] Unable to sleep [] Unable to be with family [] Patient intubated [x] Other: Summary Patient does not attend corporate evangelical, professed belief in Toby and reads Scripture and prays. Time spent with patient 5 minutes
[2019-12-17 11:19] LABS: Glucose Point of Care 444 mg/dL (70-110)
--- NOTE | 2019-12-17 11:28 | XR_ITS ---
WS: [id number] Portable AP upright chest, 12/17/2019 Clinical Data: PNA Comparison: Portable chest, 12/15/2019 Findings: No nodules or masses are seen. The heart is normal. The pulmonary vascularity is not increa sed. No pneumonia or pneumothorax is seen. There is a small right effusion with minimal right basilar atelectasis unchanged. There are bilateral hilar granulomas. XR/XR chest 1V portable [id number] Impression: No change in small right effusion and right basilar atelectasis.
--- NOTE | 2019-12-17 11:33 | US_ITS ---
WS: [id number] RENAL ULTRASOUND Bladder ultrasound HISTORY: BLAINE COMPARISON: 02/10/2019 TECHNIQUE: 2-D and color Doppler imaging of the kidney submitted. Right kidney: 10.0 cm x 4.4 cm x 4.4 cm. Normal echogenicity with no hydronephrosis or mass. Left kidney: 10.7 cm x 4.5 cm x 5.8 cm. Normal size kidney. Kidney is slightly hyperechoic which could be related to poor visualization and i ncreased fat surrounding the kidney. No obstruction. Aorta: Not well visualized. Urinary Bladder: Well-distended. No intraluminal filling defect or free fluid. US/US renal BI with bladder IMPRESSION: No renal obstruction. Negative urinary bladder.
[2019-12-17] MEDS: insulin glargine 100 units/1 mL 5 UNIT SUBCUT (11:51)
--- NOTE | 2019-12-17 12:50 | PM.PN ---
Subjective Subjective: Interval history: Breathing wallace he feels he is improving. Vitals/I&O/Wt Last Vital Signs Temp 98.1 F 12/17/19 10:55 Pulse 90 12/17/19 10:55 Resp 18 12/17/19 10:55 BP 139/79 12/17/19 10:55 Pulse Ox 96 12/17/19 10:55 12/16/19 12/17/19 12/17/19 22:59 06:59 14:59 Intake Total 770 / 1660 50 / 1710 360 / 360 Output Total 275 / 850 650 / 1500 250 / 250 Balance 495 / 810 -600 / 210 110 / 110 Weight last 48 hrs Weight 72.575 kg Physical Exam Const: COMMON NORMALS: no apparent distress and oriented x3 HENMT: COMMON NORMALS: oropharynx normal Neck/C-Spine: COMMON NORMALS: no JVD Resp: COMMON NORMALS: normal respiratory effort AUSCULTATION: no rhonchi OTHER: Mild crackle right lung if any. Cardio: COMMON NORMALS: no JVD, regular rhythm, S1 normal heart sound, S2 normal heart sound and no murmurs RHYTHM: regular rhythm HEART SOUNDS: S1 normal and S2 normal GI: COMMON NORMALS: normal to inspection, nondistended, normoactive bowel sounds, soft to palpation and non-tender PALPATION: Yes soft Extremity: COMMON NORMALS: no joint enlargement and no pedal edema NARRATIVE EXTREMITY EXAM: Bilateral lower amputee Neuro: COMMON NORMALS: oriented x3 and moves all extremities Skin: COMMON NORMALS: no rashes or lesions noted GENERAL SKIN EXAM: no rashes or lesions noted Data : 12/17/19 05:06 12/17/19 05:06 A&P Assessment and plan (1) Pneumonia: WBC count higher today. Repeat chest x-ray, with perhaps slightly worse infiltrate on the right. Continue antibiotics, although with BLAINE will discontinue vancomycin. Check MRSA PCR. Continue Zosyn at this time. With history of penetration noted on MBS in October. No more rhonchi on exam. Overall is improving. Continue inhalers. Status: Acute Code(s): J18.9 - Pneumonia, unspecified organism (2) BLAINE (acute kidney injury): Creatinine worse today up to 2.4. Will hold vancomycin at this time. Assess renal ultrasound. Urine studies. Status: Acute Code(s): N17.9 - Acute kidney failure, unspecified (3) Syncope: Without recurrence. He is feeling very well. Suspected secondary to hypoglycemia. Perhaps pneumonia, CHF exacerbation and possible UTI. Troponin mildly elevated, without rise, perhaps due to acute pulmonary issues, with mismatch in supply and demand. Acute MD is not suspected. Will monitor on telemetry. Will request for orthostatic pressures laying to sitting. Status: Acute Qualifiers: Syncope type: unspecified Qualified Code(s): R55 - Syncope and collapse Code(s): R55 - Syncope and collapse (4) Hypoglycemia: Resolved. Sugars have been on the high side. Reported decreased appetite since influenza infection in October. On 18 units Lantus. Will need to decrease dose on discharge. Status: Acute Code(s): E16.2 - Hypoglycemia, unspecified (5) Leucocytosis: Suspected due to pneumonia, less likely UTI. Status: Acute Qualifiers: Leukocytosis type: unspecified Qualified Code(s): D72.829 - Elevated white blood cell count, unspecified Code(s): D72.829 - Elevated white blood cell count, unspecified (6) Type 2 diabetes mellitus: Glucose increasing, restarted Lantus 5 units. Increase sliding scale to medium. A1c in September was 7.8. Status: Chronic Code(s): E11.9 - Type 2 diabetes mellitus without complications (7) Coronary artery disease: Denies recent issues with chest pain Status: Chronic Code(s): I25.10 - Atherosclerotic heart disease of [place] coronary artery without angina pectoris (8) COPD (chronic obstructive pulmonary disease): No wheezing currently, does have some rhonchi, reportedly perhaps wheezing in the emergency room. He is improving. Currently on room air. Status: Chronic Code(s): J44.9 - Chronic obstructive pulmonary disease, unspecified (9) CKD stage 3 secondary to diabetes: Withslightly elevated creatinine from baseline that looks to be around 1.8. Slightly better today, down to 1.9. Status: Chronic Code(s): E11.22 - Type 2 diabetes mellitus with diabetic chronic kidney disease; N18.3 - Chronic kidney disease, stage 3 (moderate) (10) BPH (benign prostatic hyperplasia): Chronically on Flomax Status: Chronic Code(s): N40.0 - Benign prostatic hyperplasia without lower urinary tract symptoms (11) Peripheral vascular disease: Status post bilateral BKA Status: Chronic Code(s): I73.9 - Peripheral vascular disease, unspecified (12) Hypertension: At goal. Status: Chronic Code(s): I10 - Essential (primary) hypertension (13) Chronic systolic CHF (congestive heart failure): Received Lasix. Overall he feels improved. Decrease Lasix dose for now to 40 mg daily with BLAINE. Status: Chronic Code(s): I50.22 - Chronic systolic (congestive) heart failure (14) Nicotine dependence, cigarettes, with other nicotine-induced disorders: Continues to smoke about a half a pack a day Status: Chronic Code(s): F17.218 - Nicotine dependence, cigarettes, with other nicotine-induced disorders Additional A&P Information Possible UTI: Continue Zosyn. Follow-up urine culture. Attestations Medical Necessity Statement*: Continue admission versus management of pneumonia, UTI, acute kidney injury. Coding Level of Care Code Acute Fan Mail Clerk for [facility] Fwd Diagnoses Pneumonia J18.9 BLAINE (acute kidney injury) N17.9 Syncope R55 Syncope type: unspecified Hypoglycemia E16.2 Leucocytosis D72.829 Leukocytosis type: unspecified Type 2 diabetes mellitus E11.9 Coronary artery disease I25.10 COPD (chronic obstructive pulmonary disease) J44.9 CKD stage 3 secondary to diabetes E11.22; N18.3 BPH (benign prostatic hyperplasia) N40.0 Peripheral vascular disease I73.9 Hypertension I10 Chronic systolic CHF (congestive heart failure) I50.22 Nicotine dependence, cigarettes, with other nicotine-induced disorders F17.218
[2019-12-17 14:05] LABS: Urine Creatinine 38 mg/dL (39-259)
[2019-12-17 14:10] LABS: Urea Nitrogen,Urine Random 342 mg/dL
[2019-12-17 17:03] LABS: Glucose Point of Care 205 mg/dL (70-110)
[2019-12-17 21:24] LABS: Glucose Point of Care 249 mg/dL (70-110)
[2019-12-18 04:00] VITALS: BP 120/60; PULSE 86; RESP 19; TEMP 36.6; O2SAT 96
[2019-12-18] MEDS: enoxaparin 40 mg/0.4 mL Syringe SUBCUT (04:57)
[2019-12-18] MEDS: piperacillin-tazobactam 3.375 GM in sodium chloride 0.9% (plus) 50 ML IV (04:58)
--- NOTE | 2019-12-18 06:00 | XR_ITS ---
WS: [id number] Portable AP upright chest, 12/18/2019 Clinical Data: Hypoxia Comparison: Portable chest, 12/17/2019 Findings: No nodules, masses or effusions are seen. The heart is slightly enlarged. The pulmonary vas cularity is not increased. No pneumonia or pneumothorax is seen. The right basilar atelectasis has pa rtly cleared. There is still a small right effusion. Monitor leads on the chest wall. XR/XR chest 1V portable [id number] Impression: 1. Partial clearing of right basilar atelectasis. 2. Small right effusion unchanged. 3. Minimal cardiomegaly.
[2019-12-18 06:14] LABS: Basophils # 0.1 10^3/uL (0.0-0.1); Basophils % 0.8 %; Eosinophils # 0.6 10^3/uL (0.0-0.8); Eosinophils % 5.4 %; Hematocrit 34.8 % (42.0-52.0); Hemoglobin 11.2 g/dL (11.7-16.6); Lymphocytes # 2.6 10^3/uL (0.8-4.8); Lymphocytes % 22.4 %; Mean Corpuscular HGB Conc 32.2 g/dL (30.0-36.0); Mean Corpuscular Hemoglobin 29.1 pg (28.0-34.0); Mean Corpuscular Volume 90.4 fL (80-94); Mean Platelet Volume 9.6 fL (7.4-10.4); Monocytes % 8.6 %; Neutrophils # 7.2 10^3/uL (1.8-7.7); Neutrophils % 61.4 %; Nucleated Red Blood Cells % 0 %; Platelet Count 362 10^3/cmm (130-400); Red Blood Count 3.85 10^6/uL (4.1-5.3); Red Cell Distribution Width 14.9 % (12.1-15.1); White Blood Count 11.8 10^3/uL (4.0-10.0)
[2019-12-18 06:35] LABS: Glucose Point of Care 233 mg/dL (70-110)
[2019-12-18 06:35] LABS: Anion Gap 15.8 (5-19); Blood Urea Nitrogen 47 mg/dL (8-23); Carbon Dioxide 25 mmol/L (22-29); Chloride 102 mmol/L (98-107); Glomerular Filtration Rate 38.2 mL/min (90-130); Glucose 223 mg/dL (65-115); Osmolality Calculated 291 mOsm/kg (285-295); Potassium 4.8 mmol/L (3.5-5.1); Sodium 138 mmol/L (136-145)
[2019-12-18 07:37] VITALS: BP 123/74; PULSE 90; RESP 16; TEMP 36.7; O2SAT 95
[2019-12-18] MEDS: albuterol 8 gm MDI 2 PUFF INHALATION (07:48)
[2019-12-18 07:51] VITALS: PULSE 95; RESP 18; O2SAT 97
[2019-12-18] MEDS: magnesium lactate 84 mg Tablet PO (08:39)
[2019-12-18] MEDS: clopidogrel 75 mg Tablet PO (08:40)
[2019-12-18] MEDS: FUROsemide 40 mg Tablet PO (08:40)
[2019-12-18] MEDS: carvedilol 3.125 mg Tablet PO (08:40)
[2019-12-18] MEDS: aspirin 81 mg EC Tablet PO (08:40)
[2019-12-18] MEDS: lisinopril 2.5 mg Tablet PO (08:41)
[2019-12-18] MEDS: atorvastatin 40 mg Tablet 80 MG PO (08:41)
[2019-12-18] MEDS: tamsulosin 0.4 mg Capsule PO (08:41)
[2019-12-18] MEDS: loratadine 10 mg Tablet PO (08:42)
[2019-12-18] MEDS: buPROPion SR (12 HR) 150 mg Tablet PO (08:42)
[2019-12-18] MEDS: insulin glargine 100 units/1 mL 5 UNIT SUBCUT (08:42)
[2019-12-18] MEDS: citalopram 20 mg Tablet PO (08:43)
--- NOTE | 2019-12-18 09:42 | PC.CHAP ---
Pastoral Care Encounter/Spiritual Assessment Type of Contact [] Declined chief estimator visit [] Patient/Family/Request visit [] Outpatient visit [] Follow-up visit [] Physician referral [] Code/Alert [x] Routine visit [] Staff referral [] Actively dying [] Patient sleeping [] Family support [] [] Out of room [] Palliative care [] [] Receiving care in room [] Pre-surgical visit [] Trauma [] Long length of stay [] ICU visit [] Other: Relational/Emotional Strength [x] Patient feels connected with others/family/visitors/staff [] Distress [] Loneliness/isolation [] Abandonment Spirituality of Patient [x] Person of [place] [] Attends Orthodox of their [place] [x] Believes in Prayer [] Reads Bible or Jew materials [] There are Spiritual issues to be addressed Hot [employer] Baker Interventions [x] Prayer [x] Active listening [x] Non-anxious presence [] Spiritual/emotional support [] Crisis/trauma care [] Spiritual counseling [] Bereavement support [] Provided bereavement packet [] Provided Bible/devotional materials [] Provided toy/stuffed animal, coloring book to patient or family member [] Provided Communion [] Anointing/[place] [] Salvation [x] Completed spiritual assessment [] Other: Impact on Illness or Injury [] Angry [] Fearful [] Anxious [] Often cries [] Exhaustion [] Unable to work [] Unable to attend denominational [] Unable to walk/stand [] Unable to read [] Unable to drive [] Unable to eat/drink [] Unable to sleep [] Unable to be with family [] Patient intubated [] Other: Summary patient feeling better Time spent with patient 15 min
[2019-12-18 11:02] VITALS: BP 132/77; PULSE 92; RESP 16; TEMP 36.5; O2SAT 95
[2019-12-18 11:12] LABS: Glucose Point of Care 362 mg/dL (70-110)
--- NOTE | 2019-12-18 11:58 | P.DS_ITS ---
Discharge Providers Date of Admission: 12/15/19 22:25 Date of Discharge: December 18, 2019 Attending Provider at Admission: Amy Donohue MD Attending Provider at Discharge: Srikanth Ham Primary Care Provider: Hiram Black DO Diagnoses at Discharge Discharge Diagnosis (1) Pneumonia: Status: Acute (2) BLAINE (acute kidney injury): Status: Acute (3) Syncope: Status: Acute Qualifiers: Syncope type: unspecified Qualified Code(s): R55 - Syncope and collapse (4) Hypoglycemia: Status: Acute (5) Leucocytosis: Status: Acute Qualifiers: Leukocytosis type: unspecified Qualified Code(s): D72.829 - Elevated white blood cell count, unspecified (6) Type 2 diabetes mellitus: Status: Chronic (7) Coronary artery disease: Status: Chronic (8) COPD (chronic obstructive pulmonary disease): Status: Chronic (9) CKD stage 3 secondary to diabetes: Status: Chronic (10) BPH (benign prostatic hyperplasia): Status: Chronic (11) Peripheral vascular disease: Status: Chronic (12) Hypertension: Status: Chronic (13) Chronic systolic CHF (congestive heart failure): Status: Chronic (14) Nicotine dependence, cigarettes, with other nicotine-induced disorders: Status: Chronic Reason for Visit Reason for Visit: Reason For Visit: FALL Hospital Course Hospital Course: D4-year-old gentleman with history of COPD, CHF, CAD, DM 2, PVD, BPH was [facility], with hypoglycemia, which reportedly occurred while he was sitting in a wheelchair. Recently treated for influenza A in September. Previously also with penetration noted on MBS, with concern for risk of aspiration. Does not appear to have rosana aspiration at this time. With noted pneumonia, suspected urinary tract infection on presentation, with significant leukocytosis, WBC 23,000, received treatment with vancomycin and Zosyn, vancomycin was discontinued earlier, with negative MRSA PCR. Leukocytosis has improved. He is saturating well on room air. Denies significant respiratory symptoms. Due to current COVID-19 pandemic she was tested, and was negative. Urine culture growing mixed dona, suspected contamination. Was noted to have acute kidney injury with fluctuating creatinine, with improvement after discontinuation of vancomycin. At this time lisinopril is held. Creatinine is improved somewhat. Renal ultrasound without finding of obstruction. Slight increase in echogenicity of left kidney. Possibly due to poor visualization. He is feeling well, and is [facility]. Denies any respiratory difficulties. Due to hypoglycemia, his Lantus dose should be reduced, currently will go down to 10 units. Please adjust as appropriate. Please continue strict aspiration precautions. Encourage him to quit smoking. Physical Exam Const: COMMON NORMALS: no apparent distress and oriented x3 HENMT: COMMON NORMALS: oropharynx normal Neck/C-Spine: COMMON NORMALS: no JVD Resp: COMMON NORMALS: normal respiratory effort and clear to auscultation bilaterally AUSCULTATION: clear to auscultation bilaterally and no rhonchi Cardio: COMMON NORMALS: no JVD, regular rhythm, S1 normal heart sound, S2 normal heart sound and no murmurs RHYTHM: regular rhythm HEART SOUNDS: S1 normal and S2 normal GI: COMMON NORMALS: normal to inspection, nondistended, normoactive bowel sounds, soft to palpation and non-tender PALPATION: Yes soft Extremity: COMMON NORMALS: no joint enlargement and no pedal edema NARRATIVE EXTREMITY EXAM: Bilateral lower amputee Neuro: COMMON NORMALS: oriented x3 and moves all extremities Skin: COMMON NORMALS: no rashes or lesions noted GENERAL SKIN EXAM: no rashes or lesions noted Discharge Data Data Completed and Pending: Completed Studies During Hospitalization Category Date Time Status CT cervical spin wo con* [id number] Urge nt Cat Scan 12/15/19 18:[address] head wo con* 7 0450 Urgent Cat Scan 12/15/19 18:48 Completed XR chest 1V bernard ble [id number] Routine Exams 12/17/19 11:28 Completed XR chest 1V bernard ble [id number] Routine Exams 12/18/19 06:00 Completed XR chest 1V bernard ble [id number] Stat Exams 12/15/19 18:48 Completed US renal BI with bladder Routine Ultrasound 12/17/19 11:33 Completed Pending at discharge Category Date Time Status Basic Metabolic P juan AM LABS Lab 12/19/19 04:00 Ordered Complete Blood Co unt w/Auto AM LABS Lab 12/19/19 04:00 Ordered Labs from last 24 hours 12/18/19 12/18/19 12/18/19 11:06 06:30 05:57 WBC RBC Hgb Hct MCV MCH MCHC RDW Plt Count MPV Neut % (Auto) Lymph % (Auto) [place] % (Auto) Eos % (Auto) Baso % (Auto) Neut # (Auto) Lymph # (Auto) [place] # (Auto) Eos # (Auto) Baso # (Auto) Nucleated RBC % (a uto) Nucleated RBCs # Sodium 138 Potassium 4.8 Chloride 102 Carbon Dioxide 25 Anion Gap 15.8 BUN 47 H Creatinine 1.8 H GFR Calculation 38.2 L Glucose 223 H POC Glucose 362 233 Calculated Osmolal ity 291 Calcium 9.0 Ur Random Urea Nit rogn Urine Creatinine 12/18/19 12/17/19 12/17/19 05:57 21:06 16:43 WBC 11.8 H RBC 3.85 L Hgb 11.2 L Hct 34.8 L MCV 90.4 MCH 29.1 MCHC 32.2 RDW 14.9 Plt Count 362 MPV 9.6 Neut % (Auto) 61.4 Lymph % (Auto) 22.4 [place] % (Auto) 8.6 Eos % (Auto) 5.4 Baso % (Auto) 0.8 Neut # (Auto) 7.2 Lymph # (Auto) 2.6 [place] # (Auto) 1.0 H Eos # (Auto) 0.6 Baso # (Auto) 0.1 Nucleated RBC % (a uto) 0 Nucleated RBCs # 0.0 Sodium Potassium Chloride Carbon Dioxide Anion Gap BUN Creatinine GFR Calculation Glucose POC Glucose 249 205 Calculated Osmolal ity Calcium Ur Random Urea Nit rogn Urine Creatinine 12/17/19 12/17/19 12:04 12:04 WBC RBC Hgb Hct MCV MCH MCHC RDW Plt Count MPV Neut % (Auto) Lymph % (Auto) [place] % (Auto) Eos % (Auto) Baso % (Auto) Neut # (Auto) Lymph # (Auto) [place] # (Auto) Eos # (Auto) Baso # (Auto) Nucleated RBC % (a uto) Nucleated RBCs # Sodium Potassium Chloride Carbon Dioxide Anion Gap BUN Creatinine GFR Calculation Glucose POC Glucose Calculated Osmolal ity Calcium Ur Random Urea Nit rogn 342 Urine Creatinine 38 L Vitals: Last Vital Signs Temp 97.7 F 12/18/19 11:02 Pulse 92 12/18/19 11:02 Resp 16 12/18/19 11:02 BP 132/77 12/18/19 11:02 Pulse Ox 95 12/18/19 11:02 Discharge Plan Discharge Patient Disposition: [facility] Condition: Stable Prescriptions: New levofloxacin [Levaquin] 750 mg tablet 750 mg PO DAILY 7 Days Qty: 7 RF: 0 Continued Zofran 4 mg Tablet 4 mg PO TID PRN (Reason: Nausea) RF: 0 Milk of Magnesia 400 mg/5 mL Suspension 5 ml PO DAILY PRN (Reason: CONSTIPATON) RF: 0 Mucinex DM 30-600 mg Tablet Extended Release 12 Hr 1 tab PO Q12H PRN (Reason: Congestion) RF: 0 Hair,Skin and Nails 1 mg iron-66.7 mcg-1,000 mcg Tablet 1 tab PO DAILY RF: 0 bupropion HCl [Wellbutrin SR] 150 mg Tablet Sustained-Release 12 Hr 150 mg PO Q12H RF: 0 clopidogrel [Plavix] 75 mg Tablet 75 mg PO DAILY RF: 0 aspirin 81 mg Tablet,Delayed Release (Dr/Ec) 81 mg PO DAILY RF: 0 carvedilol 3.125 mg Tablet 3.125 mg PO BID RF: 0 citalopram [Celexa] 20 mg Tablet 20 mg PO DAILY RF: 0 tamsulosin 0.4 mg Capsule 0.4 mg PO DAILY RF: 0 bisacodyl 10 mg Suppository 10 mg SD DAILY PRN (Reason: CONSTIPATED) RF: 0 nitroglycerin 0.4 mg Tablet, Sublingual 0.4 mg SUBLINGUAL Q5M PRN (Reason: Chest Pain) RF: 0 budesonide 0.5 mg/2 mL suspension for nebulization 2 ml inhalation BID RF: 0 polyethylene glycol 3350 [Miralax] 17 gram/dose Powder 17 g PO DAILY PRN (Reason: Constipation) RF: 0 loratadine 10 mg Tablet 10 mg PO DAILY RF: 0 insulin lispro [Humalog KwikPen Insulin] 100 unit/mL Insulin Pen See Rx Instructions .ROUTE .COMPLEX RF: 0 rosuvastatin [Crestor] 20 mg Tablet 20 mg PO DAILY RF: 0 magnesium L-lactate [Magtab] 84 mg Tablet Extended Release 84 mg PO DAILY RF: 0 potassium chloride 20 mEq Tablet Extended Release 20 meq PO DAILY RF: 0 glucagon HCl 1 mg Recon Soln 1 mg IM Q20M PRN (Reason: Hypoglycemia) RF: 0 acetaminophen 325 mg 650 mg PO Q4-5H PRN (Reason: Pain) RF: 0 Changed furosemide 40 mg tablet 40 mg PO DAILY PRN (Reason: Edema) Qty: 5 RF: 0 Lantus U-100 Insulin 100 unit pen injector 10 unit SUBCUT DAILY Qty: 0 RF: 0 Held lisinopril 2.5 mg Tablet 2.5 mg PO DAILY RF: 0 Hold Instructions: Resume on 01/01/20. Discharge Orders: Discharge Order (Routine); Ordered 12/18/19 Ordered By: Srikanth Ham Referrals: Hiram Black DO [Primary Care Provider] - 4-7 days Discharge Diet: Cardiac and Diabetic Discharge Activity: Resume usual activity and Increase activity as tolerated Activity Restrictions/Additional Instructions: Continue to monitor glucose 4 times daily, avoid hypoglycemia. Adjust Lantus as appropriate. Strict aspiration precautions with food and drink. Continue to encourage smoking cessation. Discharge Attestations Time Spent in Discharge Care*: greater than 30 min Quality Metrics Clinical Quality Measures During this hospital stay, did patient experience: None Coding Level of Care Code Acute Day Care Director for [facility] Fwd Diagnoses Pneumonia J18.9 BLAINE (acute kidney injury) N17.9 Syncope R55 Syncope type: unspecified Hypoglycemia E16.2 Leucocytosis D72.829 Leukocytosis type: unspecified Type 2 diabetes mellitus E11.9 Coronary artery disease I25.10 COPD (chronic obstructive pulmonary disease) J44.9 CKD stage 3 secondary to diabetes E11.22; N18.3 BPH (benign prostatic hyperplasia) N40.0 Peripheral vascular disease I73.9 Hypertension I10 Chronic systolic CHF (congestive heart failure) I50.22 Nicotine dependence, cigarettes, with other nicotine-induced disorders F17.218
[2019-12-18 12:43] VITALS: BP 132/77; PULSE 92; RESP 16; TEMP 36.5; O2SAT 95
--- NOTE | 2019-12-18 12:57 | DCPLANNER ---
Pg 2 of IM updated and reviewed with pt. No questions, he is ready to go.
== END 2019-12-18 14:39 | disposition skilled nursing facility (03) | DRG 194 ==
LOC: ER 20:26 → MEDSURG 22:36
PROVIDERS: Admitting Provider Hospitalist; Emergency Provider Emergency Medicine; Family Provider Internal Medicine; PCP Internal Medicine; Visit Provider Internal Medicine
DX: J18.9 Pneumonia, unspecified organism (principal); N17.9 Acute kidney failure, unspecified; I50.22 Chronic systolic (congestive) heart failure; I13.0 Hypertensive heart and chronic kidney disease with heart failure and stage 1 through stage 4 chronic kidney disease, or unspecified chronic kidney disease; N39.0 Urinary tract infection, site not specified; R55 Syncope and collapse; E11.649 Type 2 diabetes mellitus with hypoglycemia without coma; E11.22 Type 2 diabetes mellitus with diabetic chronic kidney disease; I25.10 Atherosclerotic heart disease of native coronary artery without angina pectoris; J44.9 Chronic obstructive pulmonary disease, unspecified; N18.3 Chronic kidney disease, stage 3 (moderate); N40.0 Benign prostatic hyperplasia without lower urinary tract symptoms; I73.9 Peripheral vascular disease, unspecified; F17.218 Nicotine dependence, cigarettes, with other nicotine-induced disorders; D72.829 Elevated white blood cell count, unspecified; Z79.4 Long term (current) use of insulin; Z79.82 Long term (current) use of aspirin; Z79.2 Long term (current) use of antibiotics
CPT/HCPCS: 12345; 36415; 36416; 36600; 70450; 71045; 72125; 76770; 76857; 80048; 80053; 81001; 82570; 82803; 82962; 83605; 83880; 84145; 84484; 84540; 85025; 85610; 87635; 87641; 87804; 93005; 94640; 96372; 96374; 96375; 99283; J1650; J1815; J1940; J2543; J2930; J3370; J3535; J7030; J7050; J7626

== ENCOUNTER 2019-12-25 03:48 | Inpatient (IN) | payer MEDICARE, MEDICAID, SELFPAY ==
[2019-12-25] VITALS (61 sets, daily range): BP systolic 105–140; BP diastolic 56–83; PULSE 78–104; RESP 16–27; TEMP 36.4–37.2; O2SAT 87–100; BMI 22.8
--- NOTE | 2019-12-25 03:55 | XR_ITS ---
WS: [id number] PORTABLE CHEST HISTORY: cough COMPARISON: 12/18/2019 Mild hyperexpanded lungs. Interstitial thickening and congestion bilaterally has progressed since the prior study. There is of atelectasis in the lower lung ross. Small RIGHT pleural effusion. Benign granuloma RIGHT lower lobe. Cardiac size: Normal. Mediastinum/Aorta: No mediastinal widening. Pulmonary arteries are slightly enlarged. No osseous abnormality seen. XR/XR chest 1V portable [id number] IMPRESSION: 1. Interval development of mild CHF with new small RIGHT pleural effusion. 2. Areas of atelectasis at the lung bases.
--- NOTE | 2019-12-25 03:58 | ECG_ITS ---
Measurements Intervals [place] Rate: 102 P: 71 MD: 181 QRS: 23 QRSD: 120 T: 80 QT: 349 QTc: 455 SINUS TACHYCARDIA WITH OCCASIONAL VENTRICULAR PREMATURE COMPLEXES POSSIBLE ANTERIOR MYOCARDIAL INFARCTION, OF INDETERMINATE AGE INFERIOR MYOCARDIAL INFARCTION OF INDETERMINATE AGE Compared to ECG 12/16/2019 08:26:16 Ventricular premature complex(es) now present Myocardial infarct finding now present Left-axis deviation no longer present Electronically Signed On 12-25-2019 13:39:10 CDT by Verónica Xiong M.D. [email or web address]
--- NOTE | 2019-12-25 04:04 | W.ED.SOB ---
HPI - SOB/Dyspnea General: Chief Complaint: Shortness of Breath/Dyspnea Stated Complaint: sob Time Seen by Provider: 12/25/19 03:52 History of Present Illness: HPI Narrative: Tashi is a 64-year-old male who comes in with report of shortness of breath. [facility] he would not respond and they did not believe they can find a pulse. Later he aroused and they noted his blood pressure to be 60/30. By the time EMS arrived the patient was alert and oriented x3. They stated he was a little confused and gave him a GCS of 14. On his way here the patient is noted to be short of breath with wheezing and rails. Patient denies any pain to me. His history is very limited secondary to his respiratory distress. Review of Systems General: Reports: ROS unobtainable due to medical condition (Respiratory Distress) PFS ED PFSH: Medical History Abnormal cystoscopy Anxiety BPH (benign prostatic hyperplasia) Chronic systolic CHF (congestive heart failure) CKD stage 3 secondary to diabetes COPD (chronic obstructive pulmonary disease) Coronary artery disease Depression Dysphagia Hypertension Peripheral vascular disease Type 2 diabetes mellitus Surgical History Coronary angioplasty status History of carpal tunnel surgery History of hip surgery S/P bilateral BKA (below knee amputation) S/P right coronary artery (RCA) stent placement Family History Other CAD (coronary artery disease) Diabetes Social History Smoking and tobacco status: current every day smoker cigarettes Packs smoked per day: 0.5 Years cigarettes smoked: 59 Alcohol intake: never Lives independently: No 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: Skilled Nursing Current occupational status: retired and disabled History of recent travel: No Physical Exam Const: COMMON NORMALS: oriented x3 GENERAL APPEARANCE: in distress (Respiratory distress) and appears older than stated age NUTRITIONAL APPEARANCE: cachectic and underweight HENMT: COMMON NORMALS: normocephalic, head/scalp atraumatic, hearing grossly normal bilaterally, external ears normal, EAC's normal, external nose normal and moist oral mucous membranes HEAD & SCALP: normal to inspection, normocephalic and atraumatic FACE & SINUS: normal facial exam and face symmetric NOSE: external nose normal and nares normal EXTERNAL EAR: Yes external ears normal EXTERNAL AUDITORY CANAL: EAC's normal MOUTH: oral and palatal mucosa normal and tongue normal Eye: COMMON NORMALS: PERRL, EOMs intact bilaterally, conjunctivae normal and no scleral icterus GENERAL EYE: normal appearance of both eyes and normal light reflex CONJUNCTIVA: Yes conjunctivae normal SCLERA: sclerae normal CORNEA: Yes corneas normal PUPIL: Yes PERRL DIRECT OPHTHALMOSCOPY: Yes normal light reflex Neck/C-Spine: COMMON NORMALS: full ROM, no lymphadenopathy, supple, no meningeal signs and no JVD GENERAL: Yes normal visual inspection and Yes trachea midline CERVICAL SPINE: Yes cervical ROM normal Chest: COMMONS NORMALS: inspection of chest normal and palpation of chest normal Resp: EFFORT & INSPECTION: Yes tachypneic, Yes respiratory distress, Yes labored and Yes uses accessory muscles AUSCULTATION: rales, rhonchi, wheezes and diminished lung sounds Cardio: COMMON NORMALS: no JVD, regular rate, regular rhythm, S1 normal heart sound, S2 normal heart sound, no gallops, no clicks, no murmurs and no rub JUGULAR VENOUS DISTENTION: no JVD RATE: regular rate RHYTHM: regular rhythm HEART SOUNDS: S1 normal and S2 normal GI: COMMON NORMALS: soft to palpation, non-tender, no hepatosplenomegaly and no masses INSPECTION: Yes normal to inspection PALPATION: Yes soft and Yes no hepatosplenomegaly : COMMON NORMALS: Yes no CVA tenderness BLADDER/KIDNEY EXAM: Yes no CVA tenderness Back/Pelvis: COMMON NORMALS: no CVA tenderness, thoracic and lumbar spine normal to inspection, no thoracic nor lumbar tenderness and thoraco-lumbar ROM normal Neuro: COMMON NORMALS: oriented x3, CN's II-XII intact bilaterally, moves all extremities, no focal motor deficits and no sensory deficits noted MENINGEAL SIGNS: Yes no meningeal signs Skin: COMMON NORMALS: no rashes or lesions noted, skin turgor normal, no jaundice, no petechiae and no mottling GENERAL SKIN EXAM: no rashes or lesions noted and turgor normal Course Vital Signs: Vital signs: Vital Signs Temperature 98.9 F 12/25/19 03:49 Pulse Rate 85 04/03/20 06:50 Respiratory Rate 19 H 12/25/19 06:50 Blood Pressure 124/66 12/25/19 06:50 Pulse Oximetry 100 12/25/19 06:05 MDM - SOB/Dyspnea MDM Narrative: Medical decision making narrative: Tashi came in as a respiratory distress which appears to be primarily caused by congestive heart failure. His chest x-ray is suggestive of heart failure, his BNP is elevated and a bedside ultrasound performed by me he has multiple B-lines present on lung ultrasound. As he is on BiPAP it is still hard to get a great history but I do not believe he has not had any cough, fever or any other of infectious type symptoms. His white blood cell count is elevated at this time which could be a stress response but could be an infection as well. He was tested negative for COVID-19 on his last hospital admission so he can [facility] to the [facility]. It does not believe that he has had any possible exposure of this. He does not have leukopenia, fever, or chest x-ray consistent with ARDS. He is currently on BiPAP and I believe this is appropriate as it is helped him tremendously at this time. I discussed the case and endorsed to Dr. Huffman who agrees with admission and. I have started the diuresis on him. We will test him for COVID-19 so that he will be able to go back to the [facility] once diuresed. Lab Data: Attestation: I reviewed the patient's lab results. Labs: Lab Results 12/25/19 12/25/19 12/25/19 Range/Units 04:01 04:05 04:05 WBC 21.6 H (4.0-10.0) 10^3/ uL RBC 4.04 L (4.1-5.3) 10^6/u L Hgb 11.7 (11.7-16.6) g/dL Hct 37.4 L (42.0-52.0) % MCV 92.6 (80-94) fL MCH 29.0 (28.0-34.0) pg MCHC 31.3 (30.0-36.0) g/dL RDW 15.7 H (12.1-15.1) % Plt Count 305 (130-400) 10^3/c mm MPV 9.8 (7.4-10.4) fL Neut % (Auto) 84.4 % Lymph % (Auto) 7.1 % [place] % (Auto) 5.7 % Eos % (Auto) 1.7 % Baso % (Auto) 0.4 % Neut # (Auto) 18.2 H (1.8-7.7) 10^3/u L Lymph # (Auto) 1.5 (0.8-4.8) 10^3/u L [place] # (Auto) 1.2 H (0.2-0.9) 10^3/u L Eos # (Auto) 0.4 (0.0-0.8) 10^3/u L Baso # (Auto) 0.1 (0.0-0.1) 10^3/u L Nucleated RBC % (a uto) 0 % Nucleated RBCs # 0.0 /100WBC PT 14.50 H (10.5-13.3) SECO NDS INR 1.10 (0.8-1.2) Specimen Type Sample Site ABG pH (7.35-7.45) ABG pCO2 (35-45) mmHg ABG pO2 (80.0-100.0) mmH g ABG HCO3 (22-26) mmol/L ABG Base Excess (-2.0-2.0) mmol/ L Pop Test Hematocrit (42-52) % O2 Delivery Device FiO2 % [place] Manager ID Sodium 139 (136-145) mmol/L Potassium 4.8 (3.5-5.1) mmol/L Chloride 102 (98-107) mmol/L Carbon Dioxide 21 L (22-29) mmol/L Anion Gap 20.8 H (5-19) BUN 23 (8-23) mg/dL Creatinine 1.8 H (0.7-1.2) mg/dL GFR Calculation 38.2 L (90-130) mL/min Glucose 250 H (65-115) mg/dL Calculated Osmolal ity 293 (285-295) mOsm/k g Lactic Acid (0.5-2.2) mmol/L Calcium 9.7 (8.5-10.5) mg/dL Magnesium 2.0 (1.7-2.3) mg/dL Total Bilirubin 0.5 (0.15-1.2) mg/dL AST 13 (0-40) U/L ALT 13 (0-41) U/L Alkaline Phosphata se 93 (40-130) IU/L Troponin T Baselin e (0-15) ng/mL NT-Pro-B Natriuret Pep (0-125) pg/mL Total Protein 7.0 (6.6-8.7) g/dL Albumin 3.7 (3.5-5.2) g/dL Globulin 3.3 (1.3-4.6) g/dL Influenza Type A A g (Negative) Influenza Type B A g (Negative) 12/25/19 12/25/19 12/25/19 Range/Units 04:05 04:05 04:20 WBC (4.0-10.0) 10^3/ uL RBC (4.1-5.3) 10^6/u L Hgb (11.7-16.6) g/dL Hct (42.0-52.0) % MCV (80-94) fL MCH (28.0-34.0) pg MCHC (30.0-36.0) g/dL RDW (12.1-15.1) % Plt Count (130-400) 10^3/c mm MPV (7.4-10.4) fL Neut % (Auto) % Lymph % (Auto) % [place] % (Auto) % Eos % (Auto) % Baso % (Auto) % Neut # (Auto) (1.8-7.7) 10^3/u L Lymph # (Auto) (0.8-4.8) 10^3/u L [place] # (Auto) (0.2-0.9) 10^3/u L Eos # (Auto) (0.0-0.8) 10^3/u L Baso # (Auto) (0.0-0.1) 10^3/u L Nucleated RBC % (a uto) % Nucleated RBCs # /100WBC PT (10.5-13.3) SECO NDS INR (0.8-1.2) Specimen Type Sample Site ABG pH (7.35-7.45) ABG pCO2 (35-45) mmHg ABG pO2 (80.0-100.0) mmH g ABG HCO3 (22-26) mmol/L ABG Base Excess (-2.0-2.0) mmol/ L Pop Test Hematocrit (42-52) % O2 Delivery Device FiO2 % [place] Manager ID Sodium (136-145) mmol/L Potassium (3.5-5.1) mmol/L Chloride (98-107) mmol/L Carbon Dioxide (22-29) mmol/L Anion Gap (5-19) BUN (8-23) mg/dL Creatinine (0.7-1.2) mg/dL GFR Calculation (90-130) mL/min Glucose (65-115) mg/dL Calculated Osmolal ity (285-295) mOsm/k g Lactic Acid 1.0 (0.5-2.2) mmol/L Calcium (8.5-10.5) mg/dL Magnesium (1.7-2.3) mg/dL Total Bilirubin (0.15-1.2) mg/dL AST (0-40) U/L ALT (0-41) U/L Alkaline Phosphata se (40-130) IU/L Troponin T Baselin e 58 H (0-15) ng/mL NT-Pro-B Natriuret Pep 6512 H (0-125) pg/mL Total Protein (6.6-8.7) g/dL Albumin (3.5-5.2) g/dL Globulin (1.3-4.6) g/dL Influenza Type A A g (Negative) Influenza Type B A g (Negative) 12/25/19 12/25/19 Range/Units 04:20 04:43 WBC (4.0-10.0) 10^3/ uL RBC (4.1-5.3) 10^6/u L Hgb (11.7-16.6) g/dL Hct (42.0-52.0) % MCV (80-94) fL MCH (28.0-34.0) pg MCHC (30.0-36.0) g/dL RDW (12.1-15.1) % Plt Count (130-400) 10^3/c mm MPV (7.4-10.4) fL Neut % (Auto) % Lymph % (Auto) % [place] % (Auto) % Eos % (Auto) % Baso % (Auto) % Neut # (Auto) (1.8-7.7) 10^3/u L Lymph # (Auto) (0.8-4.8) 10^3/u L [place] # (Auto) (0.2-0.9) 10^3/u L Eos # (Auto) (0.0-0.8) 10^3/u L Baso # (Auto) (0.0-0.1) 10^3/u L Nucleated RBC % (a uto) % Nucleated RBCs # /100WBC PT (10.5-13.3) SECO NDS INR (0.8-1.2) Specimen Type Arterial Sample Site Brachial, left ABG pH 7.38 (7.35-7.45) ABG pCO2 39.8 (35-45) mmHg ABG pO2 99.2 (80.0-100.0) mmH g ABG HCO3 23.4 (22-26) mmol/L ABG Base Excess -1.6 (-2.0-2.0) mmol/ L Pop Test N/a Hematocrit 32.5 L (42-52) % O2 Delivery Device Bipap FiO2 35.0 % [place] Manager ID [email or web address] Sodium (136-145) mmol/L Potassium (3.5-5.1) mmol/L Chloride (98-107) mmol/L Carbon Dioxide (22-29) mmol/L Anion Gap (5-19) BUN (8-23) mg/dL Creatinine (0.7-1.2) mg/dL GFR Calculation (90-130) mL/min Glucose (65-115) mg/dL Calculated Osmolal ity (285-295) mOsm/k g Lactic Acid (0.5-2.2) mmol/L Calcium (8.5-10.5) mg/dL Magnesium (1.7-2.3) mg/dL Total Bilirubin (0.15-1.2) mg/dL AST (0-40) U/L ALT (0-41) U/L Alkaline Phosphata se (40-130) IU/L Troponin T Baselin e (0-15) ng/mL NT-Pro-B Natriuret Pep (0-125) pg/mL Total Protein (6.6-8.7) g/dL Albumin (3.5-5.2) g/dL Globulin (1.3-4.6) g/dL Influenza Type A A g Negative (Negative) Influenza Type B A g Negative (Negative) Imaging Data^: CXR: My impression: Cardiomegaly with mild pulmonary vascular congestion. Possible right lower lobe infiltrate versus effusion. EKG Data^: EKG 1: Attestation: I personally reviewed and interpreted this EKG as follows: EKG Interpretation Date: 12/25/19 EKG interpretation time: 04:42 Interpretation: Normal sinus rhythm with a ventricular rate of 90, inferior Q waves noted as well as anterior Q waves. Nonspecific interventricular conduction delay. Nonspecific ST and T wave changes. Discharge Plan Discharge Patient Disposition: Admitted As Inpatient Admit Provider: Alma Huffman Clinical Impression: Congestive heart failure Qualifiers: Heart failure type: unspecified Heart failure chronicity: acute on chronic Qualified Code(s): I50.9 - Heart failure, unspecified Leukocytosis Qualifiers: Leukocytosis type: unspecified Qualified Code(s): D72.829 - Elevated white blood cell count, unspecified Condition: Stable Referrals: Hiram Black DO [Primary Care Provider] - Coding Level of Care Code ED Management And Budget Analyst for Chg Fwd Exam Comprehensive
--- NOTE | 2019-12-25 04:08 | PC.NURSE ---
performed EKG and sown to ER doctor, doctor wants a repeat EKG once patient is on bipap and to delete the initial ekg. called and informed respiratory therapy.
[2019-12-25] MEDS: ondansetron 2 mg/ML SDV 2 mL 4 MG IVP ×2 (04:18→21:19)
[2019-12-25] MEDS: sodium chloride 0.9% 1,000 ML 100 ML IV (04:18)
[2019-12-25 04:28] LABS: Basophils # 0.1 10^3/uL (0.0-0.1); Basophils % 0.4 %; Eosinophils # 0.4 10^3/uL (0.0-0.8); Eosinophils % 1.7 %; Hematocrit 37.4 % (42.0-52.0); Hemoglobin 11.7 g/dL (11.7-16.6); Lymphocytes # 1.5 10^3/uL (0.8-4.8); Lymphocytes % 7.1 %; Mean Corpuscular HGB Conc 31.3 g/dL (30.0-36.0); Mean Corpuscular Volume 92.6 fL (80-94); Mean Platelet Volume 9.8 fL (7.4-10.4); Monocytes # 1.2 10^3/uL (0.2-0.9); Monocytes % 5.7 %; Neutrophils # 18.2 10^3/uL (1.8-7.7); Neutrophils % 84.4 %; Nucleated Red Blood Cells % 0 %; Platelet Count 305 10^3/cmm (130-400); Red Blood Count 4.04 10^6/uL (4.1-5.3); Red Cell Distribution Width 15.7 % (12.1-15.1); White Blood Count 21.6 10^3/uL (4.0-10.0)
[2019-12-25 04:33] LABS: Alanine Aminotransferase 13 U/L (0-41); Albumin Level 3.7 g/dL (3.5-5.2); Alkaline Phosphatase 93 IU/L (40-130); Anion Gap 20.8 (5-19); Aspartate Amino Transferase 13 U/L (0-40); Blood Urea Nitrogen 23 mg/dL (8-23); Calcium 9.7 mg/dL (8.5-10.5); Carbon Dioxide 21 mmol/L (22-29); Chloride 102 mmol/L (98-107); Globulin 3.3 g/dL (1.3-4.6); Glomerular Filtration Rate 38.2 mL/min (90-130); Glucose 250 mg/dL (65-115); Osmolality Calculated 293 mOsm/kg (285-295); Potassium 4.8 mmol/L (3.5-5.1); Sodium 139 mmol/L (136-145); Total Bilirubin 0.5 mg/dL (0.15-1.2)
[2019-12-25 04:34] LABS: Troponin(5th) Baseline 58 ng/mL (0-15)
[2019-12-25] MEDS: ipratropium-albuterol 3 mL Neb 9 ML INHALATION (04:35)
--- NOTE | 2019-12-25 04:46 | PC.NURSE ---
EKG done at 0444 and shown to ER doctor
[2019-12-25] MEDS: piperacillin-tazobactam 3.375 GM in sodium chloride 0.9% (plus) 50 ML IV (04:49)
[2019-12-25 04:53] LABS: Influenza A by IFA Negative (Negative); Influenza B by IFA Negative (Negative)
[2019-12-25 04:59] LABS: ABG PCO2 39.8 mmHg (35-45); ABG PH Result 7.38 (7.35-7.45); Arterial Blood Gas Hematocrit 32.5 % (42-52); Base Excess ABG -1.6 mmol/L (-2.0-2.0); Blood Gas Sample Site Brachial, left; Blood Gas Sample Type Arterial; HCO3 ABG 23.4 mmol/L (22-26); Oxygen Device BIPAP; PO2 ABG 99.2 mmHg (80.0-100.0)
[2019-12-25 05:26] LABS: NT Pro B Type Natriuretic Pept 6512 pg/mL (0-125)
--- NOTE | 2019-12-25 05:40 | PM.HP ---
Providers/Chief Complaint Primary Care Provider: Hiram Black DO Chief Complaint: sob History of Present Illness Tashi Cole is a 64 year old male who carries diagnosis of congestive heart failure reduced ejection fraction 36%, denied AICD, type II diabetic, bilateral BKA, , peripheral vascular disease, established coronary disease, ischemic cardiomyopathy, [facility] resident of [place] recent admission of syncopal event secondary to hypoglycemia came in with chief complaint of respiratory distress. Patient does not have good functional status, he does get short of breath from transferring from bed to chair, he is endorsing orthopnea, PND. Patient is stating that his symptoms started around 6 PM last night when he was trying to rest in his bed, multiple breathing treatment and oxygen supplementation did not relieve his symptoms. No recent sick contacts, he has been afebrile, he has chronic cough, no increased sputum production, he is been feeling nauseous, no active chest pain, he thinks he does not diurese well with Lasix 40 mg, no change in his bowel movements. He still smoking half a pack a day. Diagnostics in ER revealed congestive heart failure exacerbation, he was put on BiPAP to relieve his work of breathing, blood work revealed leukocytosis, x-ray is consistent with chronic changes with vascular congestion moderate from edema ER physician has ordered covid testing as protocol for [facility] patient Review of Systems Const: Reports: fatigue; Denies: fever, chills or body aches Eyes: Denies: change in vision ENMT: Denies: throat pain Card: Reports: shortness of breath when lying down; Denies: chest pain Resp: Reports: shortness of breath, non-productive cough and chest congestion; Denies: wheezing, pain on inspiration or change in phlegm color GI: Denies: abdominal pain or nausea : Reports: flank pain; Denies: difficulty urinating Musc: Denies: neck pain Skin/Breast: Denies: rash Neuro: Denies: headache Psych: Denies: anxiety Endo: Denies: excessive urination [place]/Lymph: Denies: easy bruising All/Imm: Denies: hives Medications/Allergies Allergies Allergy/AdvReac Type Severity Reaction Status Date / Time tramadol Allergy ADR-Vomitin Verified 11/21/19 15:28 g PFSH Acute PFSH: Medical History Abnormal cystoscopy Anxiety BPH (benign prostatic hyperplasia) Chronic systolic CHF (congestive heart failure) CKD stage 3 secondary to diabetes COPD (chronic obstructive pulmonary disease) Coronary artery disease Depression Dysphagia Hypertension Peripheral vascular disease Type 2 diabetes mellitus Surgical History Coronary angioplasty status History of carpal tunnel surgery History of hip surgery S/P bilateral BKA (below knee amputation) S/P right coronary artery (RCA) stent placement Family History Other CAD (coronary artery disease) Diabetes Social History Smoking and tobacco status: current every day smoker cigarettes Packs smoked per day: 0.5 Years cigarettes smoked: 59 Alcohol intake: never Lives independently: No Housing: Jail Current occupational status: retired and disabled History of recent travel: No Vitals/I&O/Wt Last Vital Signs Temp 98.9 F 12/25/19 03:49 Pulse 91 12/25/19 04:50 Resp 22 H 12/25/19 04:50 BP 139/67 12/25/19 03:49 Pulse Ox 98 12/25/19 04:50 Weight last 48 hrs Weight 68.039 kg Physical Exam Narrative: EXAM NARRATIVE: Appears stated age Currently on BiPAP setting 18/10 with good tidal volume No active respiratory distress No chest pain S1, S2, clinical signs of heart failure, Assisted breath sounds with diffuse crackles without active wheezing Abdomen soft, distended, obese obesity, bowel sounds sluggish Bilateral BKA Trace edema of above-knee area Flat affect EOMI, PERRLA Data : 12/25/19 04:05 12/25/19 04:05 A&P Assessment and plan (1) Congestive heart failure: Status: Acute Qualifiers: Heart failure chronicity: acute on chronic Heart failure type: unspecified Qualified Code(s): I50.9 - Heart failure, unspecified (2) Leukocytosis: Status: Acute Qualifiers: Leukocytosis type: unspecified Qualified Code(s): D72.829 - Elevated white blood cell count, unspecified (3) Type 2 diabetes mellitus: Status: Chronic (4) S/P bilateral BKA (below knee amputation): Status: Chronic (5) CKD stage 3 secondary to diabetes: Status: Chronic (6) BPH (benign prostatic hyperplasia): Status: Chronic (7) COPD (chronic obstructive pulmonary disease): Status: Chronic Additional A&P Information Acute exacerbation of combined diastolic and systolic congestive heart failure I believe his symptoms are secondary to gradually worsening of his congestive heart failure, he currently smokes half pack a day, has underlying COPD Would increase the dose of Lasix to 80 mg daily Continue BiPAP to decrease work of breathing Discontinue fluids which were started by ER, Patient is not complaining of chest pain Patient has refused AICD for reduced ejection fraction heart failure in the past Non-oxygen dependent COPD without active exacerbation Chest x-ray is consistent with vascular congestion, pulmonary imaging is consistent with chronic changes, calcified nodules evident around the right hilar area Patient is denying night sweats, extreme weight loss, hemoptysis He is currently seeing Dr. Berger as well who recommended pulmonary function test Patient counseled on smoking cessation Chronic kidney disease: No active exacerbation Type 2 diabetes: Previous history of syncopal event due to hypoglycemia, will keep a more consistent carbohydrate and sliding scale Coronary disease status post stent RCA 2016 No active chest pain Peripheral vascular disease status post bilateral BKA: No acute issues BPH: Continue tamsulosin DNR/DNI Consistent carbohydrate diet DVT prophylaxis: Heparin Attestations Medical Necessity Statement*: Anticipating discharge in less than 48 hours, currently needs hospital admission for treatment of CHF exacerbation with underlying COPD, patient is high risk for readmissions because of severely reduced ejection fraction and active smoking Time Spent in Patient Care: 50 Coding Level of Care Code 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
--- NOTE | 2019-12-25 05:58 | ECG_ITS ---
Measurements Intervals Funk Rate: 89 P: 58 MT: 189 QRS: 16 QRSD: 84 T: 99 QT: 375 QTc: 457 SINUS RHYTHM INFERIOR MYOCARDIAL INFARCTION , OF INDETERMINATE AGE ANTEROSEPTAL MYOCARDIAL INFARCTION , OF INDETERMINATE AGE Compared to ECG 12/16/2019 08:26:16 Myocardial infarct finding now present Sinus tachycardia no longer present Left-axis deviation no longer present Electronically Signed On 12-25-2019 13:43:41 CDT by Verónica Xiong M.D. [email or web address]
--- NOTE | 2019-12-25 06:00 | PC.NURSE ---
COVID-19 TEST PERFORMED.
--- NOTE | 2019-12-25 06:19 | PC.NURSE ---
EKG done at 0615 and shown to ER doctor
[2019-12-25 06:27] LABS: Troponin 5 2HR 54.47 ng/mL (0-15)
[2019-12-25 06:32] LABS: Troponin 5 2HR Delta -3.53 ABS# (0-10)
[2019-12-25 06:32] LABS: Bilirubin Urine Neg (NEGATIVE); Blood Urine Neg (Negative); Ketones Urine 1+ (Negative); Leukocyte Esterase Urine Trace (Negative); Nitrate Urine Negative (Negative); Protein Urine 1+ (Negative); Urine Appearance Clear (CLEAR); Urine Color Yellow (Yellow); Urobilinogen Urine Norm (Negative); pH Urine 5 (5-7)
[2019-12-25 06:33] LABS: Glucose Urine UA 1+ (Normal)
[2019-12-25 06:37] LABS: RBC Urine 0-4 /hpf (0-2)
[2019-12-25 06:38] LABS: Add Urine Culture? No; Bacteria Urine TRACE; Squamous Epithelial Cell Urine 0-4 (0-5)
--- NOTE | 2019-12-25 07:50 | PC.NURSE ---
report given to Cherry KUMAR in ICU. Pt had orders for Lasix and Nitro. Meds have been pulled from [facility], overnight RN had not charted in MAR if given.
[2019-12-25] MEDS: clopidogrel 75 mg Tablet PO (08:40)
[2019-12-25] MEDS: lisinopril 2.5 mg Tablet PO (08:40)
[2019-12-25] MEDS: buPROPion SR (12 HR) 150 mg Tablet PO ×2 (08:41→21:20)
[2019-12-25] MEDS: FUROsemide 40 mg Tablet 80 MG PO (08:42)
[2019-12-25] MEDS: atorvastatin 40 mg Tablet 80 MG PO (08:43)
[2019-12-25] MEDS: tamsulosin 0.4 mg Capsule PO (08:43)
[2019-12-25] MEDS: aspirin 81 mg EC Tablet PO (08:43)
[2019-12-25] MEDS: heparin 5,000 unit/mL INJ 1 mL 5000 UNIT SUBCUT ×2 (08:44→16:56)
[2019-12-25] MEDS: carvedilol 3.125 mg Tablet PO ×2 (08:44→17:01)
[2019-12-25] MEDS: citalopram 20 mg Tablet PO (08:44)
[2019-12-25 08:52] LABS: Glucose Point of Care 243 mg/dL (70-110)
--- NOTE | 2019-12-25 09:00 | PM.PN ---
Subjective Subjective: Interval history: Patient reports chronic dry cough which is unchanged. He did have wet appearing cough during my evaluation. Reports this morning that he is short of breath and gradually worsened over the last several days. He denies chest pain or abdominal pain. He continues to smoke. His white blood cell count is 21.6 and he is not sure if he was recently treated with steroids. He was supported with BiPAP throughout the night. He denies any bilateral below-knee amputation stump swelling. He denies any trouble swallowing. He was admitted yesterday with diagnosis of acute CHF exacerbation. It is unclear how much urinary output he had overnight. Vitals/I&O/Wt Last Vital Signs Temp 98.9 F 12/25/19 03:49 Pulse 85 12/25/19 06:50 Resp 19 H 12/25/19 06:50 BP 124/66 12/25/19 06:50 Pulse Ox 100 12/25/19 06:05 Weight last 48 hrs Weight 68.039 kg Physical Exam Const: COMMON NORMALS: no apparent distress and oriented x3 Resp: COMMON NORMALS: normal respiratory effort OTHER: Coarse breath sounds throughout especially at the bases. Cardio: COMMON NORMALS: regular rate, regular rhythm and S2 normal heart sound RATE: regular rate RHYTHM: regular rhythm HEART SOUNDS: S2 normal OTHER: No lower extremity edema of bilateral below-knee amputation stomps GI: COMMON NORMALS: normal to inspection, nondistended, normoactive bowel sounds, soft to palpation and non-tender PALPATION: Yes soft Neuro: COMMON NORMALS: oriented x3 and no focal motor deficits Data : 12/25/19 04:05 12/25/19 04:05 A&P Assessment and plan (1) Congestive heart failure: Status: Acute Qualifiers: Heart failure chronicity: acute on chronic Heart failure type: unspecified Qualified Code(s): I50.9 - Heart failure, unspecified (2) Leukocytosis: UTI and/are pneumonia currently considered. Status: Acute Qualifiers: Leukocytosis type: unspecified Qualified Code(s): D72.829 - Elevated white blood cell count, unspecified (3) Type 2 diabetes mellitus: Status: Chronic (4) S/P bilateral BKA (below knee amputation): Status: Chronic (5) CKD stage 3 secondary to diabetes: Status: Chronic (6) BPH (benign prostatic hyperplasia): Status: Chronic (7) COPD (chronic obstructive pulmonary disease): Status: Chronic Additional A&P Information Acute exacerbation of combined diastolic and systolic congestive heart failure I believe his symptoms are secondary to gradually worsening of his congestive heart failure, he currently smokes half pack a day, has underlying COPD Would increase the dose of Lasix to 80 mg daily Continue BiPAP to decrease work of breathing Discontinue fluids which were started by ER, Patient is not complaining of chest pain Patient has refused AICD for reduced ejection fraction heart failure in the past Non-oxygen dependent COPD without active exacerbation Chest x-ray is consistent with vascular congestion, pulmonary imaging is consistent with chronic changes, calcified nodules evident around the right hilar area Patient is denying night sweats, extreme weight loss, hemoptysis He is currently seeing Dr. Berger as well who recommended pulmonary function test Patient counseled on smoking cessation Chronic kidney disease: No active exacerbation Type 2 diabetes: Previous history of syncopal event due to hypoglycemia, will keep a more consistent carbohydrate and sliding scale Coronary disease status post stent RCA 2017 No active chest pain Peripheral vascular disease status post bilateral BKA: No acute issues BPH: Continue tamsulosin PLAN: We will start patient on ceftriaxone and azithromycin at this point as I do not have any good explanation of leukocytosis and pneumonia and/or UTI cannot be completely ruled out. Continue his home medications including Lasix. He was given 1 dose of Solu-Medrol in ER and I will not continued at this point as patient shows no evidence of COPD exacerbation. Discussed regarding importance of smoking cessation. Patient is not very receptive. Awaiting COVID19 test result. 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
[2019-12-25] MEDS: insulin glargine 100 units/1 mL 10 UNIT SUBCUT (09:03)
[2019-12-25] MEDS: cefTRIAXone 1,000 MG in sodium chloride 0.9% (plus) 50 ML 100 MG IV ×2 (09:58→21:20)
--- NOTE | 2019-12-25 09:58 | ECG_ITS ---
Measurements Intervals [place] Rate: 90 P: 58 SC: 176 QRS: 16 QRSD: 97 T: 94 QT: 369 QTc: 453 SINUS RHYTHM POSSIBLE ANTERIOR MYOCARDIAL INFARCTION, OF INDETERMINATE AGE INFERIOR MYOCARDIAL INFARCTION, OF INDETERMINATE AGE Compared to ECG 12/16/2019 08:26:16 Myocardial infarct finding now present Sinus tachycardia no longer present Left-axis deviation no longer present Electronically Signed On 12-25-2019 13:44:12 CDT by Verónica Xiong M.D. [id number]
[2019-12-25] MEDS: azithromycin 500 MG in sodium chloride 0.9% 250 ML 250 MG IV (09:59)
[2019-12-25] MEDS: sodium chloride 0.9% 100 ML 30 ML (09:59)
[2019-12-25 12:02] LABS: Glucose Point of Care 257 mg/dL (70-110)
[2019-12-25 12:31] LABS: Troponin 5 6HR 41.81 ng/mL (0-15)
[2019-12-25 12:45] LABS: Troponin 5 6HR Delta -16.19 ng/L (0-12)
[2019-12-25 16:54] LABS: Glucose Point of Care 366 mg/dL (70-110)
--- NOTE | 2019-12-25 18:53 | PC.NURSE ---
0745-7p summary: Pt arrived to the unit at 0745 this am. Pt is AAOX3, pleasant and cooperative with staff and care. Voiding per urinal. Pt accuchecks have been elevated all shift and was covered with sliding scale. Pt repositioned for comfort PRN. Pt received Rocephin, Azithromycin as ordered. VSS. No complaints or pain voiced this shift. Report given to JOSÉ Cantu.
[2019-12-25 22:01] LABS: Glucose Point of Care 310 mg/dL (70-110)
[2019-12-26] VITALS (17 sets, daily range): BP systolic 100–174; BP diastolic 53–104; PULSE 76–115; RESP 15–33; TEMP 36.4–37.1; O2SAT 92–99
[2019-12-26] MEDS: pantoprazole 40 mg SDV IVP ×2 (00:04→08:52)
[2019-12-26] MEDS: ondansetron 2 mg/ML SDV 2 mL 4 MG IVP (04:49)
[2019-12-26 05:22] LABS: Basophils % 0.2 %; Eosinophils % 0.2 %; Hematocrit 34.8 % (42.0-52.0); Hemoglobin 10.9 g/dL (11.7-16.6); Lymphocytes # 1.8 10^3/uL (0.8-4.8); Lymphocytes % 9.5 %; Mean Corpuscular HGB Conc 31.3 g/dL (30.0-36.0); Mean Corpuscular Hemoglobin 28.8 pg (28.0-34.0); Mean Corpuscular Volume 92.1 fL (80-94); Mean Platelet Volume 10.1 fL (7.4-10.4); Monocytes # 1.5 10^3/uL (0.2-0.9); Monocytes % 7.8 %; Neutrophils # 15.5 10^3/uL (1.8-7.7); Neutrophils % 81.7 %; Nucleated Red Blood Cells % 0 %; Platelet Count 316 10^3/cmm (130-400); Red Blood Count 3.78 10^6/uL (4.1-5.3); Red Cell Distribution Width 15.9 % (12.1-15.1); White Blood Count 18.9 10^3/uL (4.0-10.0)
[2019-12-26 05:47] LABS: Alanine Aminotransferase 14 U/L (0-41); Albumin Level 3.7 g/dL (3.5-5.2); Alkaline Phosphatase 95 IU/L (40-130); Aspartate Amino Transferase 15 U/L (0-40); Blood Urea Nitrogen 33 mg/dL (8-23); Calcium 9.7 mg/dL (8.5-10.5); Carbon Dioxide 26 mmol/L (22-29); Chloride 102 mmol/L (98-107); Globulin 3.8 g/dL (1.3-4.6); Glomerular Filtration Rate 30.3 mL/min (90-130); Glucose 106 mg/dL (65-115); Osmolality Calculated 292 mOsm/kg (285-295); Sodium 142 mmol/L (136-145); Total Bilirubin 0.3 mg/dL (0.15-1.2); Total Protein 7.5 g/dL (6.6-8.7)
[2019-12-26 08:07] LABS: Glucose Point of Care 221 mg/dL (70-110)
--- NOTE | 2019-12-26 08:19 | USCV_ITS ---
Tashi Cole Age: 64 Gender: M : 1955 Exam Date: 12/26/2019 10:05 Ordering Phys: Kishor Perry MD Technologist: Ruby Pedro Exam Location: [facility] – [place] Indication: OK BP: 168 / 91 HR: Rhythm: Technical Quality: Suboptimal MEASUREMENTS (Male / Female) Normal Values 2D ECHO LV Diastolic Diameter PLAX 6.3 cm 4.2 - 5.9 / 3.9 - 5.3 cm LV Systolic Diameter PLAX 5.2 cm LV Chamber Size 5.4 cm IVS Diastolic Thickness 1.3 cm 0.6 - 1.0 / 0.6 - 0.9 cm IVS Systolic Thickness 1.1 cm LVPW Diastolic Thickness 1.0 cm 0.6 - 1.0 / 0.6 - 0.9 cm LVPW Systolic Thickness 1.2 cm RV Chamber Size 3.3 cm LVOT Diameter 1.8 cm LV Ejection Fraction 2D Teich 36.9 % LV Ejection Fraction MOD 2C 16.8 % LV Ejection Fraction 2C AL 20.9 % LA Diameter 4.5 cm LA Width 3.2 cm LA Height 5.7 cm RA Width 2.6 cm RA Height 4.4 cm Aorta at Sinotubular Diameter 2.5 cm M-MODE LV Diastolic Diameter MM 7.8 cm 4.2 - 5.9 / 3.9 - 5.3 cm LV Systolic Diameter MM 6.6 cm LV Ejection Fraction MM Teich 32.0 % IVS Diastolic Thickness MM 1.1 cm 0.6 - 1.0 / 0.6 - 0.9 cm IVS Systolic Thickness MM 1.6 cm LVPW Diastolic Thickness MM 1.0 cm 0.6 - 1.0 / 0.6 - 0.9 cm LVPW Systolic Thickness MM 1.5 cm Aortic Annulus Diameter 3.0 cm LA Ao Ratio MM 1.5 MV E Point Septal Separation 2.5 cm DOPPLER AV Peak Velocity 146.0 cm/s LVOT Peak Velocity 58.0 cm/s AV Area Cont Eq vti 1.0 cm squared AV Area Cont Eq pk 1.1 cm squared MV Area PHT 4.5 cm squared MV E' Velocity 7.0 cm/s Mitral E to MV E' Ratio 15.0 Mitral E to LV E' Lateral Ratio 15.6 Mitral E to LV E' Septal Ratio 14.6 TR Peak Velocity 385.0 cm/s TR Peak Gradient 59.2 mmHg TV Peak E Velocity 69.0 cm/s Right Atrial Pressure 3.0 mmHg Pulmonary Artery Systolic Pressu 62.3 mmHg PV Peak Velocity 58.0 cm/s RV Acceleration Time 0.1 s RV Ejection Time 0.2 s RV AcT/ET 0.4 FINDINGS Left Ventricle Severely increased left ventricular cavity size. Severely decreased left ventricular systolic function. Global left ventricular hypokinesis. Left ventricular ejection fraction is estimated at 32 %. Grade III/IV diastolic dysfunction (restrictive filling pattern), severely elevated filling pressures. Right Ventricle Normal right ventricular size. Normal right ventricular systolic function. Moderate pulmonary hypertension, RVSP 62.3 mmHg. Right Atrium The right atrium is normal in size. Left Atrium The left atrium is normal in size. Mitral Valve Mildly thickened mitral valve. No mitral valve stenosis. Moderate mitral valve regurgitation. Aortic Valve Mild aortic valve calcification. No aortic valve stenosis. Trace aortic valve regurgitation. Tricuspid Valve Moderate tricuspid valve regurgitation. Pulmonic Valve Structurally normal pulmonic valve without significant stenosis. There is no pulmonic regurgitation. Pericardium Normal pericardium without effusion. Aorta Normal ascending aorta dimension. CONCLUSIONS 1-Severely increased left ventricular cavity size. Severely decreased left ventricular systolic function. Global left ventricular hypokinesis. Left ventricular ejection fraction is estimated at 32 %. Grade III/IV diastolic dysfunction (restrictive filling pattern), severely elevated filling pressures. 2-Normal right ventricular size. Normal right ventricular systolic function. Moderate pulmonary hypertension, RVSP 62.3 mmHg. 3-Mildly thickened mitral valve. No mitral valve stenosis. Moderate mitral valve regurgitation. 4-Mild aortic valve calcification. No aortic valve stenosis. Trace aortic valve regurgitation. 5-Moderate tricuspid valve regurgitation. 6-There is no pericardial effusion. 7-No significant change since the prior echocardiogram study of 02/09/2019. Alma Siddiqui MD (Electronically Signed) Final Date: 26 December 2019 17:21 S
--- NOTE | 2019-12-26 08:19 | ECG_ITS ---
Measurements Intervals [place] Rate: 108 P: 71 IA: 178 QRS: 25 QRSD: 133 T: 30 QT: 338 QTc: 455 SINUS TACHYCARDIA INTRAVENTRICULAR CONDUCTION DELAY [130+ ms QRS DURATION] POSSIBLE ANTERIOR MYOCARDIAL INFARCTION [30 ms Q WAVE IN V3/V4, OR R < 0.2 mV IN V4], OF INDETERMINATE AGE INFERIOR MYOCARDIAL INFARCTION [40+ ms Q WAVE AND/OR ST/T ABNORMALITY IN II/aVF], PROBABLY OLD Compared to ECG 12/25/2019 06:16:16 Intraventricular conduction delay now present Sinus rhythm no longer present Myocardial infarct finding still present Electronically Signed On 12-26-2019 20:23:00 CDT by Alma Siddiqui M.D. [id number]
--- NOTE | 2019-12-26 08:26 | P.PN_ITS ---
Subjective Subjective: Interval history: Patient is more short of breath this morning and had episode of vomiting. This morning patient reports minimal periumbilical area abdominal discomfort. Denies passing gas and reports that his last bowel movement was 2 days ago. Reports that his vomiting was bilious fluid with minimal undigested food. No evidence of blood on examination of sheet stains. Patient is diabetic and continues to smoke. White blood cell count slightly improved. Acute coronary syndrome is suspected. He is not using his oxygen and saturates in the high 80s to low 90s. He is hypertensive with blood pressure in 160s over 90s. He is mildly tachycardic. Vitals/I&O/Wt Last Vital Signs Temp 98.4 F 12/26/19 00:00 Pulse 105 H 12/26/19 06:00 Resp 29 H 12/26/19 06:00 BP 168/91 12/26/19 06:00 Pulse Ox 93 12/26/19 06:00 12/25/19 12/26/19 12/26/19 22:59 06:59 14:59 Intake Total 1010 / 2098 Output Total 350 / 600 600 / 1200 Balance 660 / 1498 -600 / 898 Weight last 48 hrs Weight 68.039 kg Physical Exam Const: COMMON NORMALS: oriented x3 OTHER: Appears in mild distress. Resp: COMMON NORMALS: normal respiratory effort OTHER: Coarse breath sounds throughout especially at the bases. Cardio: COMMON NORMALS: regular rate, regular rhythm and S2 normal heart sound RATE: regular rate RHYTHM: regular rhythm HEART SOUNDS: S2 normal OTHER: No lower extremity edema of bilateral below-knee amputation stomps GI: COMMON NORMALS: normal to inspection, nondistended, normoactive bowel sounds and soft to palpation PALPATION: Yes soft, No firm, Yes tender (Minimally at periumbilical area. ), No guarding and No rigid Neuro: COMMON NORMALS: oriented x3 and no focal motor deficits Data : 12/26/19 04:43 12/26/19 04:43 A&P Assessment and plan (1) Congestive heart failure: Status: Acute Qualifiers: Heart failure chronicity: acute on chronic Heart failure type: unspecified Qualified Code(s): I50.9 - Heart failure, unspecified (2) Leukocytosis: UTI and/are pneumonia currently considered. Status: Acute Qualifiers: Leukocytosis type: unspecified Qualified Code(s): D72.829 - Elevated white blood cell count, unspecified (3) Type 2 diabetes mellitus: Status: Chronic (4) S/P bilateral BKA (below knee amputation): Status: Chronic (5) CKD stage 3 secondary to diabetes: Status: Chronic (6) BPH (benign prostatic hyperplasia): Status: Chronic (7) COPD (chronic obstructive pulmonary disease): Status: Chronic (8) Acute coronary syndrome: Status: Acute (9) Candidal intertrigo: Status: Acute Additional A&P Information Acute exacerbation of combined diastolic and systolic congestive heart failure I believe his symptoms are secondary to gradually worsening of his congestive heart failure, he currently smokes half pack a day, has underlying COPD Would increase the dose of Lasix to 80 mg daily Continue BiPAP to decrease work of breathing Discontinue fluids which were started by ER, Patient is not complaining of chest pain Patient has refused AICD for reduced ejection fraction heart failure in the past Non-oxygen dependent COPD without active exacerbation Chest x-ray is consistent with vascular congestion, pulmonary imaging is consistent with chronic changes, calcified nodules evident around the right hilar area Patient is denying night sweats, extreme weight loss, hemoptysis He is currently seeing Dr. Berger as well who recommended pulmonary function test Patient counseled on smoking cessation Chronic kidney disease: No active exacerbation Type 2 diabetes: Previous history of syncopal event due to hypoglycemia, will keep a more consistent carbohydrate and sliding scale Coronary disease status post stent RCA 2016 No active chest pain Peripheral vascular disease status post bilateral BKA: No acute issues BPH: Continue tamsulosin PLAN: We will start patient on nitroglycerin drip. Abdominal pain is anginal equivalent. Start patient on therapeutic anticoagulation. Continue aspirin Plavix and statin. We will give 1 dose IV metoprolol to bring heart rate down. Case discussed with Dr. Siddiqui who will see patient in consultation. Serial troponin and EKGs. Continue antiemetics and Protonix for GI protection. Apply oxygen. Nystatin powder for treatment of candidal intertrigo. Patient overall has poor IV access and we may need to place a PICC line. DNR/DNI Consistent carbohydrate diet DVT prophylaxis: Lovenox Attestations Medical Necessity Statement*: Patient with acute coronary syndrome requires close ICU monitoring and treatment. Critical Care Time: Patient has acute coronary syndrome Critical Care Time (min): 20 Coding Level of Care Code Acute Manager Video for Pepe Fwsavita Diagnoses Congestive heart failure I50.9 Heart failure chronicity: acute on chronic Heart failure type: unspecified Leukocytosis D72.829 Leukocytosis type: unspecified Type 2 diabetes mellitus E11.9 S/P bilateral BKA (below knee amputation) Z89.512; Z89.511 CKD stage 3 secondary to diabetes E11.22; N18.3 BPH (benign prostatic hyperplasia) N40.0 COPD (chronic obstructive pulmonary disease) J44.9 Acute coronary syndrome I24.9 Candidal intertrigo B37.2
[2019-12-26] MEDS: tamsulosin 0.4 mg Capsule PO (08:47)
[2019-12-26] MEDS: carvedilol 3.125 mg Tablet PO ×2 (08:47→17:20)
[2019-12-26] MEDS: clopidogrel 75 mg Tablet PO (08:47)
[2019-12-26] MEDS: buPROPion SR (12 HR) 150 mg Tablet PO ×2 (08:47→20:51)
[2019-12-26] MEDS: FUROsemide 40 mg Tablet 80 MG PO (08:47)
[2019-12-26] MEDS: aspirin 81 mg EC Tablet PO (08:47)
[2019-12-26] MEDS: citalopram 20 mg Tablet PO (08:47)
[2019-12-26] MEDS: atorvastatin 40 mg Tablet 80 MG PO (08:48)
[2019-12-26] MEDS: nystatin powder 15 gm Btl 1 APPLIC TOPICAL ×2 (08:48→17:22)
[2019-12-26] MEDS: lisinopril 2.5 mg Tablet PO (08:48)
[2019-12-26] MEDS: insulin glargine 100 units/1 mL 10 UNIT SUBCUT (08:53)
[2019-12-26] MEDS: cefTRIAXone 1,000 MG in sodium chloride 0.9% (plus) 50 ML 100 MG IV ×2 (09:28→20:52)
[2019-12-26] MEDS: azithromycin 500 MG in sodium chloride 0.9% 250 ML 250 MG IV (09:28)
[2019-12-26] MEDS: enoxaparin 80 mg/0.8 mL Syringe 70 MG SUBCUT (09:33)
[2019-12-26] MEDS: metoprolol tartrate 1 mg/1 mL SDV 5 mL 5 MG IV (09:33)
[2019-12-26 09:40] LABS: Troponin(5th) Baseline 41 ng/mL (0-15)
[2019-12-26 11:17] LABS: Troponin 5 2HR 41.67 ng/mL (0-15); Troponin 5 2HR Delta 0.67 ABS# (0-10)
[2019-12-26 11:37] LABS: Glucose Point of Care 177 mg/dL (70-110)
--- NOTE | 2019-12-26 14:24 | ECG_ITS ---
Measurements Intervals [place] Rate: 78 P: 64 CA: 168 QRS: 11 QRSD: 88 T: 0 QT: 188 QTc: 215 SINUS RHYTHM POSSIBLE ANTERIOR MYOCARDIAL INFARCTION [30 ms Q WAVE IN V3/V4, OR R < 0.2 mV IN V4], PROBABLY OLD INFERIOR MYOCARDIAL INFARCTION [40+ ms Q WAVE AND/OR ST/T ABNORMALITY IN II/aVF], OF INDETERMINATE AGE Compared to ECG 12/25/2019 06:16:16 No significant changes Electronically Signed On 12-26-2019 20:23:02 CDT by Alma Siddiqui M.D. [id number]
[2019-12-26 15:30] LABS: Troponin 5 6HR 49.89 ng/mL (0-15); Troponin 5 6HR Delta 8.89 ng/L (0-12)
--- NOTE | 2019-12-26 16:11 | PM.CONSULT ---
Providers/Reason For Consult Consulting Physican/Specialty*: Cardiology Reason for Consult*: Respiratory failure CHF COPD exacerbation Attending Physician: Kishor Perry MD Primary Care Provider: Hiram Black DO History of Present Illness History of Present Illness Tashi Cole is a 64 year old male Past medical history significant for severe peripheral vascular disease status post BKA, COPD continues to smoke, severe coronary artery disease with severely depressed LV function status post AICD, hypertension hyperlipidemia diabetes mellitus and chronic kidney disease admitted with worsening of shortness of breath and mixed COPD CHF picture. He was recently discharged from the hospital.Patient was started on diuretics and antibiotics. We have been asked to assist in the care. When I saw the patient he was feeling sleepy did not talk to me much however he told me he is not having any chest pain and shortness of breath has improved. Review of Systems General: Reports: ROS unobtainable due to medical condition (Respiratory Distress) Const: Reports: fatigue; Denies: fever, chills or body aches Eyes: Denies: change in vision ENMT: Denies: throat pain Card: Reports: shortness of breath when lying down; Denies: chest pain Resp: Reports: shortness of breath, non-productive cough and chest congestion; Denies: wheezing, pain on inspiration or change in phlegm color GI: Denies: abdominal pain or nausea : Reports: flank pain; Denies: difficulty urinating Musc: Denies: neck pain Skin/Breast: Denies: rash Neuro: Denies: headache Psych: Denies: anxiety Endo: Denies: excessive urination Ashvin/Lymph: Denies: easy bruising All/Imm: Denies: hives or acute wheezing Meds/Allergies Home Medications and Allergies Home Medications Medication Instructions Recorded Confirmed Type acetaminophen 650 mg PO Q4-5H PRN 10/19/19 12/25/19 History aspirin 81 mg PO DAILY 10/19/19 12/25/19 History bisacodyl 10 mg RI DAILY PRN 10/19/19 12/25/19 History budesonide 2 ml INHALATION BID 10/19/19 12/25/19 History bupropion HCl [Wellbutrin SR] 150 mg PO Q12H 10/19/19 12/25/19 History carvedilol 3.125 mg PO BID 10/19/19 12/25/19 History citalopram [Celexa] 20 mg PO DAILY 10/19/19 12/25/19 History clopidogrel [Plavix] 75 mg PO DAILY 10/19/19 12/25/19 History glucagon HCl 1 mg IM Q20M PRN 10/19/19 12/25/19 History insulin lispro [Humalog KwikPen See Rx Instructions .ROUTE .COMPLEX 10/19/19 12/25/19 History Insulin] lisinopril 2.5 mg PO DAILY 10/19/19 12/25/19 History loratadine 10 mg PO DAILY 10/19/19 12/25/19 History magnesium L-lactate [Magtab] 84 mg PO DAILY 10/19/19 12/25/19 History nitroglycerin 0.4 mg SUBLINGUAL Q5M PRN 10/19/19 12/25/19 History polyethylene glycol 3350 [Miralax] 17 g PO DAILY PRN 10/19/19 12/25/19 History potassium chloride 20 meq PO DAILY 10/19/19 12/25/19 History rosuvastatin [Crestor] 20 mg PO DAILY 10/19/19 12/25/19 History tamsulosin 0.4 mg PO DAILY 10/19/19 12/25/19 History Hair,Skin and Nails 1 tab PO DAILY 12/15/19 12/25/19 History Mucinex DM 1 tab PO Q12H PRN 12/15/19 12/25/19 History magnesium hydroxide [Milk of 5 ml PO DAILY PRN 12/15/19 12/25/19 History Magnesia] ondansetron HCl [Zofran] 4 mg PO TID PRN 12/15/19 12/25/19 History Lantus U-100 Insulin 10 unit SUBCUT DAILY #0 12/18/19 12/25/19 Rx furosemide 40 mg PO DAILY PRN #5 tab 12/18/19 12/25/19 Rx Allergies Allergy/AdvReac Type Severity Reaction Status Date / Time tramadol Allergy ADR-Vomitin Verified 11/21/19 15:28 g Current Medications Current Medications Generic Name Dose Route Start Last Admin Trade Name Freq PRN Reason Stop Dose Admin Aspirin 81 mg 12/25/19 09:00 12/26/19 08:47 Aspirin Ec PO 81 mg DAILY [place] Administration Atorvastatin Calcium 80 mg 12/25/19 09:00 12/26/19 08:48 Lipitor PO 80 mg DAILY [place] Administration Bupropion HCl 150 mg 12/25/19 08:13 12/26/19 08:47 Wellbutrin Sr (12 Hr) PO 150 mg Q12H [place] Administration Carvedilol 3.125 mg 12/25/19 09:00 12/26/19 08:47 Coreg PO 3.125 mg BID [place] Administration Citalopram Hydrobromide 20 mg 12/25/19 09:00 12/26/19 08:47 Celexa PO 20 mg DAILY [place] Administration Clopidogrel Bisulfate 75 mg 12/25/19 09:00 12/26/19 08:47 Plavix PO 75 mg DAILY [place] Administration Enoxaparin Sodium 70 mg 12/26/19 08:30 12/26/19 09:33 Lovenox SUBCUT 70 mg Q24H [place] Administration Furosemide 80 mg 12/25/19 09:00 12/26/19 08:47 Lasix PO 80 mg DAILY [place] Administration Ceftriaxone Sodium 1,000 mg/ 50 mls @ 100 mls/hr 12/25/19 09:15 12/26/19 10:00 Sodium Chloride IV Infused Q12H [facility] Infusion Protocol Azithromycin 500 mg/ Sodium 250 mls @ 250 mls/hr 12/25/19 10:00 12/26/19 10:30 Chloride IV Infused Q24H [facility] Infusion Protocol Insulin Aspart 0 unit 12/25/19 08:13 12/26/19 11:32 Novolog SUBCUT 4 unit WM&BEDTIME [facility] Administration Protocol Insulin Glargine 10 unit 12/25/19 09:00 12/26/19 08:53 Lantus SUBCUT 10 unit DAILY [place] Administration Lisinopril 2.5 mg 12/25/19 09:00 12/26/19 08:48 Prinivil PO 2.5 mg DAILY [place] Administration Nystatin 1 applic 12/26/19 09:00 12/26/19 08:48 Nystatin Powder TOPICAL 1 gm BID [place] Administration Ondansetron HCl 4 mg 12/25/19 08:13 12/26/19 04:49 Zofran IVP 4 mg Q6H PRN Administration NAUSEA AND VOMITING Pantoprazole Sodium 40 mg 12/25/19 23:45 12/26/19 08:52 Protonix IVP 40 mg DAILY [place] Administration Tamsulosin HCl 0.4 mg 12/25/19 09:00 12/26/19 08:47 Flomax PO 0.4 mg DAILY [place] Administration PFSH Acute PFSH: Medical History Abnormal cystoscopy Anxiety BPH (benign prostatic hyperplasia) Chronic systolic CHF (congestive heart failure) CKD stage 3 secondary to diabetes COPD (chronic obstructive pulmonary disease) Coronary artery disease Depression Dysphagia Hypertension Peripheral vascular disease Type 2 diabetes mellitus Surgical History Coronary angioplasty status History of carpal tunnel surgery History of hip surgery S/P bilateral BKA (below knee amputation) S/P right coronary artery (RCA) stent placement Family History Other CAD (coronary artery disease) Diabetes Social History Smoking and tobacco status: current every day smoker cigarettes Packs smoked per day: 0.5 Years cigarettes smoked: 59 Alcohol intake: never Lives independently: No Housing: Residential Current occupational status: retired and disabled History of recent travel: No Dietary Habits: Current diet type/program: regular Caffeine: Yes Caffeine intake frequency: carbonated beverages Number of carbonated beverage servings: 2 During the past year weight has: remained stable Vitals/I&O/Wt Last Vital Signs Temp 97.8 F 12/26/19 14:00 Pulse 79 12/26/19 14:00 Resp 17 12/26/19 14:00 BP 108/56 12/26/19 14:00 Pulse Ox 94 12/26/19 14:00 12/26/19 12/26/19 12/26/19 06:59 14:59 22:59 Intake Total 785 / 785 Output Total 600 / 1200 400 / 400 Balance -600 / 898 385 / 385 Weight last 48 hrs Weight 150 lb Physical Exam Narrative: EXAM NARRATIVE: GENERAL: Patient is sleepy but oriented NECK: No jugular vein distension. HEENT: No cyanosis. No icterus. No pallor. HEART: Regular S1 and S2. No murmur, rub or gallop. LUNGS: Decreased breath sound bilaterally ABDOMEN: Soft, nontender and nondistended. Positive bowel sounds. No guarding, rebound or tenderness. CENTRAL NERVOUS SYSTEM: Grossly nonfocal. EXTREMITIES: bka A&P Assessment and plan (1) Congestive heart failure: Continue IV Lasix 40 mg twice a day for next 24 hours. Further plan will be devised. Status: Acute Qualifiers: Heart failure chronicity: acute on chronic Heart failure type: unspecified Qualified Code(s): I50.9 - Heart failure, unspecified (2) CKD stage 3 secondary to diabetes: Patient has baseline CKD, continue to monitor Status: Chronic (3) S/P bilateral BKA (below knee amputation): Severe peripheral vascular disease currently asymptomatic continue to monitor Status: Chronic (4) COPD (chronic obstructive pulmonary disease): As per medicine Status: Chronic Consult Attestations Medical Necessity Statement: Patient requires continuation of hospitalization for above defined care Coding Level of Care Code Established Pt Acute Delinquent Account Clerk for g Fwd Patient Type Established History Expanded Problem Focused Exam Expanded Problem Focused Medical Decision Making Moderate Complexity Diagnoses Congestive heart failure I50.9 Heart failure chronicity: acute on chronic Heart failure type: unspecified CKD stage 3 secondary to diabetes E11.22; N18.3 S/P bilateral BKA (below knee amputation) Z89.512; Z89.511 COPD (chronic obstructive pulmonary disease) J44.9
[2019-12-26 17:09] LABS: Glucose Point of Care 66 mg/dL (70-110)
[2019-12-26] MEDS: FUROsemide 10 mg/mL SDV 4mL 40 MG IVP (17:20)
--- NOTE | 2019-12-26 19:07 | PC.NURSE ---
7a-7p summary: Pt was bathed and linens changed at the beginning of the shift. Pt was given Lasix 80mg po this am and pt was incont of urine several times with prn moises care given. This afternoon pt was to receive Lasix 40mg IVP and wanted a mtz so that he was not peeing all over himself anymore. 16Fr mtz placed without difficulty with immediate return of 250mls of yellow urine. No complaints of pain voiced this shift. Groin has what appears to be a yeast infection, order for nystatin powder obtained and started. Pt refused to take Nitro SL this am and refused Nitro gtt, pt states he is not having chest pain and did not need anything for chest pain. O2 @ 1/2LNC in used. Report given to JOSÉ Escobar.
[2019-12-26 21:03] LABS: Glucose Point of Care 296 mg/dL (70-110)
[2019-12-27] VITALS (12 sets, daily range): BP systolic 104–142; BP diastolic 54–88; PULSE 75–94; RESP 18–23; TEMP 36.7–37.3; O2SAT 95–99
[2019-12-27 06:00] LABS: Alanine Aminotransferase 12 U/L (0-41); Albumin Level 3.3 g/dL (3.5-5.2); Alkaline Phosphatase 82 IU/L (40-130); Anion Gap 15.6 (5-19); Aspartate Amino Transferase 14 U/L (0-40); Blood Urea Nitrogen 33 mg/dL (8-23); Carbon Dioxide 28 mmol/L (22-29); Chloride 101 mmol/L (98-107); Creatinine Clr Calc Pharmacy 36.0238; Globulin 3.3 g/dL (1.3-4.6); Glomerular Filtration Rate 33.8 mL/min (90-130); Glucose 131 mg/dL (65-115); Osmolality Calculated 291 mOsm/kg (285-295); Potassium 3.6 mmol/L (3.5-5.1); Sodium 141 mmol/L (136-145); Total Bilirubin 0.3 mg/dL (0.15-1.2); Total Protein 6.6 g/dL (6.6-8.7)
[2019-12-27 07:16] LABS: Glucose Point of Care 146 mg/dL (70-110)
[2019-12-27] MEDS: enoxaparin 80 mg/0.8 mL Syringe 70 MG SUBCUT (07:38)
[2019-12-27] MEDS: buPROPion SR (12 HR) 150 mg Tablet PO ×2 (07:38→20:59)
[2019-12-27] MEDS: polyethylene glycol 3350 Pkt 17 gm PO (07:43)
[2019-12-27] MEDS: FUROsemide 40 mg Tablet 80 MG PO (08:40)
[2019-12-27] MEDS: citalopram 20 mg Tablet PO (08:41)
[2019-12-27] MEDS: pantoprazole 40 mg SDV IVP (08:41)
[2019-12-27] MEDS: lisinopril 2.5 mg Tablet PO (08:41)
[2019-12-27] MEDS: carvedilol 3.125 mg Tablet PO ×2 (08:41→17:45)
[2019-12-27] MEDS: clopidogrel 75 mg Tablet PO (08:41)
[2019-12-27] MEDS: tamsulosin 0.4 mg Capsule PO (08:41)
[2019-12-27] MEDS: aspirin 81 mg EC Tablet PO (08:41)
[2019-12-27] MEDS: atorvastatin 40 mg Tablet 80 MG PO (08:41)
[2019-12-27] MEDS: nystatin powder 15 gm Btl 1 APPLIC TOPICAL ×2 (08:42→17:46)
[2019-12-27] MEDS: cefTRIAXone 1,000 MG in sodium chloride 0.9% (plus) 50 ML 100 MG IV ×2 (08:43→20:59)
[2019-12-27] MEDS: insulin glargine 100 units/1 mL 10 UNIT SUBCUT (08:43)
[2019-12-27] MEDS: azithromycin 500 MG in sodium chloride 0.9% 250 ML 250 MG IV (10:06)
--- NOTE | 2019-12-27 11:32 | P.PN_ITS ---
Subjective Subjective: Interval history: Patient reports feeling much better this morning. He denies any shortness of breath, nausea or chest pain. He refused to have nitroglycerin despite understanding the reason why it was initiated. He does not think there is anything wrong with his heart. He demanded Mejia catheter be placed before initiation of Lasix. He reports that recently his Lasix dose was doubled at nursing facility. Vitals/I&O/Wt Last Vital Signs Temp 98.4 F 12/27/19 10:00 Pulse 90 12/27/19 10:00 Resp 22 H 12/27/19 10:00 BP 142/88 12/27/19 10:00 Pulse Ox 95 12/27/19 10:00 12/26/19 12/27/19 12/27/19 22:59 06:59 14:59 Intake Total 530 / 1315 530 / 530 Output Total 250 / 650 1250 / 1900 200 / 200 Balance 280 / 665 -1250 / -585 330 / 330 Physical Exam Const: COMMON NORMALS: oriented x3 OTHER: Not in any distress. Resp: COMMON NORMALS: normal respiratory effort OTHER: Coarse breath sounds throughout especially at the bases. Cardio: COMMON NORMALS: regular rate, regular rhythm and S2 normal heart sound RATE: regular rate RHYTHM: regular rhythm HEART SOUNDS: S2 normal OTHER: No lower extremity edema of bilateral below-knee amputation stomps GI: COMMON NORMALS: normal to inspection, nondistended, normoactive bowel sounds and soft to palpation PALPATION: Yes soft, No firm, Yes tender (Minimally at periumbilical area. ), No guarding and No rigid Neuro: COMMON NORMALS: oriented x3 and no focal motor deficits Data : 12/26/19 04:43 12/27/19 04:32 A&P Assessment and plan (1) Congestive heart failure: Status: Acute Qualifiers: Heart failure chronicity: acute on chronic Heart failure type: unspecified Qualified Code(s): I50.9 - Heart failure, unspecified (2) Leukocytosis: UTI and/are pneumonia currently considered. 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 Change Lovenox to prophylactic dose. Repeat CBC and CMP in a.m. Discontinue azithromycin as patient received 3 doses and continue ceftriaxone for now. We will transfer patient to medical dang and continue telemetry monitoring. DNR/DNI Consistent carbohydrate diet DVT prophylaxis: Lovenox Attestations Medical Necessity Statement*: Patient with acute CHF exacerbation and chest pain requires close inpatient monitoring and treatment. Coding Level of Care Code Acute [employer] for [facility] Fwd Diagnoses Congestive heart failure I50.9 Heart failure chronicity: acute on chronic Heart failure type: unspecified Leukocytosis D72.829 Leukocytosis type: unspecified Type 2 diabetes mellitus E11.9 S/P bilateral BKA (below knee amputation) Z89.512; Z89.511 CKD stage 3 secondary to diabetes E11.22; N18.3 BPH (benign prostatic hyperplasia) N40.0 COPD (chronic obstructive pulmonary disease) J44.9 Acute coronary syndrome I24.9 Candidal intertrigo B37.2
[2019-12-27 11:51] LABS: Glucose Point of Care 254 mg/dL (70-110)
--- NOTE | 2019-12-27 12:11 | PC.NURSE ---
Pt is being transferred to room 276-2 via bed with all personal belongings. Report called to Heather. Pt is AAOX3, pleasant and cooperative with staff and care. SL X1 patent and flushing well. Mejia patent and draining to bedside. No complaints of pain voiced this am.
[2019-12-27] MEDS: FUROsemide 10 mg/mL SDV 4mL 40 MG IVP (15:51)
--- NOTE | 2019-12-27 18:29 | PM.PN ---
Subjective Subjective: Interval history: Patient stays doing fine denies any complain Vitals/I&O/Wt Last Vital Signs Temp 98.0 F 12/27/19 16:00 Pulse 76 12/27/19 16:00 Resp 18 12/27/19 16:00 BP 135/70 12/27/19 16:00 Pulse Ox 99 12/27/19 16:00 12/27/19 12/27/19 12/27/19 06:59 14:59 22:59 Intake Total 530 / 530 480 / 1010 Output Total 1250 / 1900 600 / 600 400 / 1000 Balance -1250 / -585 -70 / -70 80 / 10 Physical Exam Narrative: EXAM NARRATIVE: GENERAL: Patient is Date time and space NECK: No jugular vein distension. HEENT: No cyanosis. No icterus. No pallor. HEART: Regular S1 and S2. No murmur, rub or gallop. LUNGS: Clear to auscultate bilaterally CENTRAL NERVOUS SYSTEM: Grossly nonfocal. EXTREMITIES: bka Data : 12/26/19 04:43 12/27/19 04:32 A&P Assessment and plan (1) Congestive heart failure: Well compensated. We'll switch him to by mouth Lasix Status: Acute Qualifiers: Heart failure chronicity: acute on chronic Heart failure type: unspecified Qualified Code(s): I50.9 - Heart failure, unspecified (2) CKD stage 3 secondary to diabetes: Patient has baseline CKD, continue to monitor Status: Chronic (3) S/P bilateral BKA (below knee amputation): Severe peripheral vascular disease currently asymptomatic continue to monitor Status: Chronic (4) COPD (chronic obstructive pulmonary disease): As per medicine Status: Chronic Attestations Medical Necessity Statement*: As per medicine. If he continues to do fine over next 24 hour can be discharged Coding Level of Care Code Established Pt Acute Mounter [employer] for [employer] Fwd Patient Type Established History Expanded Problem Focused Exam Expanded Problem Focused Medical Decision Making Moderate Complexity Diagnoses Congestive heart failure I50.9 Heart failure chronicity: acute on chronic Heart failure type: unspecified CKD stage 3 secondary to diabetes E11.22; N18.3 S/P bilateral BKA (below knee amputation) Z89.512; Z89.511 COPD (chronic obstructive pulmonary disease) J44.9
[2019-12-27 20:45] LABS: Glucose Point of Care 177 mg/dL (70-110)
[2019-12-28] VITALS: BP 103/66; PULSE 75; RESP 18; TEMP 37.4; O2SAT 97
[2019-12-28 04:00] VITALS: BP 110/65; PULSE 77; RESP 17; TEMP 37.1; O2SAT 98
[2019-12-28 05:57] LABS: Basophils % 0.3 %; Eosinophils # 0.4 10^3/uL (0.0-0.8); Eosinophils % 3.2 %; Hematocrit 33.9 % (42.0-52.0); Hemoglobin 10.7 g/dL (11.7-16.6); Lymphocytes # 2.5 10^3/uL (0.8-4.8); Lymphocytes % 21.7 %; Mean Corpuscular HGB Conc 31.6 g/dL (30.0-36.0); Mean Corpuscular Hemoglobin 29.6 pg (28.0-34.0); Mean Corpuscular Volume 93.6 fL (80-94); Monocytes # 1.1 10^3/uL (0.2-0.9); Monocytes % 9.3 %; Neutrophils # 7.5 10^3/uL (1.8-7.7); Neutrophils % 64.7 %; Nucleated Red Blood Cells % 0 %; Platelet Count 262 10^3/cmm (130-400); Red Blood Count 3.62 10^6/uL (4.1-5.3); Red Cell Distribution Width 15.4 % (12.1-15.1); White Blood Count 11.6 10^3/uL (4.0-10.0)
[2019-12-28 06:18] LABS: Alanine Aminotransferase 13 U/L (0-41); Albumin Level 3.3 g/dL (3.5-5.2); Alkaline Phosphatase 85 IU/L (40-130); Anion Gap 16.9 (5-19); Aspartate Amino Transferase 14 U/L (0-40); Blood Urea Nitrogen 27 mg/dL (8-23); Calcium 8.8 mg/dL (8.5-10.5); Carbon Dioxide 28 mmol/L (22-29); Chloride 102 mmol/L (98-107); Globulin 2.7 g/dL (1.3-4.6); Glomerular Filtration Rate 38.2 mL/min (90-130); Glucose 157 mg/dL (65-115); Osmolality Calculated 296 mOsm/kg (285-295); Potassium 3.9 mmol/L (3.5-5.1); Sodium 143 mmol/L (136-145); Total Bilirubin 0.3 mg/dL (0.15-1.2)
[2019-12-28 06:30] LABS: Glucose Point of Care 186 mg/dL (70-110)
[2019-12-28 07:51] VITALS: BP 131/73; PULSE 87; RESP 17; TEMP 36.7; O2SAT 100
[2019-12-28 08:47] VITALS: PULSE 90; RESP 20; O2SAT 94
--- NOTE | 2019-12-28 08:50 | PC.SOCIAL ---
IMM Page 2 of IMM given to patient. Initialed, dated, and timed and placed in chart. Copy provided to patient.
[2019-12-28] MEDS: atorvastatin 40 mg Tablet 80 MG PO (09:17)
[2019-12-28] MEDS: carvedilol 3.125 mg Tablet PO (09:17)
[2019-12-28] MEDS: FUROsemide 40 mg Tablet 80 MG PO (09:17)
[2019-12-28] MEDS: buPROPion SR (12 HR) 150 mg Tablet PO (09:17)
[2019-12-28] MEDS: citalopram 20 mg Tablet PO (09:17)
[2019-12-28] MEDS: lisinopril 2.5 mg Tablet PO (09:18)
[2019-12-28] MEDS: clopidogrel 75 mg Tablet PO (09:18)
[2019-12-28] MEDS: aspirin 81 mg EC Tablet PO (09:18)
[2019-12-28] MEDS: tamsulosin 0.4 mg Capsule PO (09:18)
[2019-12-28] MEDS: cefTRIAXone 1,000 MG in sodium chloride 0.9% (plus) 50 ML 100 MG IV (09:19)
[2019-12-28] MEDS: insulin glargine 100 units/1 mL 10 UNIT SUBCUT (09:58)
[2019-12-28] MEDS: enoxaparin 40 mg/0.4 mL Syringe SUBCUT (09:59)
[2019-12-28 10:03] LABS: Glucose Point of Care 270 mg/dL (70-110)
[2019-12-28] MEDS: pantoprazole 40 mg SDV IVP (10:03)
[2019-12-28] MEDS: nystatin powder 15 gm Btl 1 APPLIC TOPICAL (10:11)
[2019-12-28 11:12] LABS: Glucose Point of Care 258 mg/dL (70-110)
[2019-12-28 12:00] VITALS: BP 108/67; PULSE 80; RESP 17; TEMP 36.9; O2SAT 100
--- NOTE | 2019-12-28 13:49 | P.DS_ITS ---
Discharge Providers Date of Admission: 12/25/19 05:45 Date of Discharge: December 28, 2019 Attending Provider at Admission: Alma Huffman MD Attending Provider at Discharge: Kishor Perry MD Primary Care Provider: Hiram Black DO Diagnoses at Discharge Discharge Diagnosis (1) Congestive heart failure: Status: Acute Qualifiers: Heart failure chronicity: acute on chronic Heart failure type: unspecified Qualified Code(s): I50.9 - Heart failure, unspecified (2) CKD stage 3 secondary to diabetes: Status: Chronic (3) S/P bilateral BKA (below knee amputation): Status: Chronic (4) COPD (chronic obstructive pulmonary disease): Status: Chronic (5) Candidal intertrigo: Status: Acute (6) Leukocytosis: Status: Acute Qualifiers: Leukocytosis type: unspecified Qualified Code(s): D72.829 - Elevated white blood cell count, unspecified Reason for Visit Reason for Visit: Reason For Visit: sob Hospital Course Discharge Summary: Patient presented with shortness of breath and diagnosed with acute systolic heart failure. Patient's EF is 36%. He was diuresed and gradually improved. He had significant leukocytosis with white blood cell count more than 18. There was some concern for possible underlying pneumonia or bronchitis and patient was started on antibiotic. He gradually improved and this morning reports feeling much better and strong enough to be dismissed back to nursing facility. I will continue Omnicef for 5 more days. Patient was using Lasix on as-needed basis and we will change it to standing dose as recommended by cardiology. I will request outpatient follow-up with cardiology in 2 weeks. I will also request CBC and CMP to be checked in several days prior to primary care physician follow-up. This morning he denies any shortness of breath or chest pain. Reports feeling at his normal baseline. Physical Exam Const: COMMON NORMALS: no apparent distress and oriented x3 Resp: COMMON NORMALS: normal respiratory effort and clear to auscultation bilaterally AUSCULTATION: clear to auscultation bilaterally Cardio: COMMON NORMALS: regular rate, regular rhythm and S2 normal heart sound RATE: regular rate RHYTHM: regular rhythm HEART SOUNDS: S2 normal OTHER: Bilateral below-knee amputation. GI: COMMON NORMALS: normal to inspection, nondistended, normoactive bowel sounds, soft to palpation and non-tender PALPATION: Yes soft Neuro: COMMON NORMALS: oriented x3 and no focal motor deficits Discharge Data Data Completed and Pending: Completed Studies During Hospitalization Category Date Time Status XR chest 1V bernard ble [id number] Stat Exams 12/25/19 03:55 Completed CV echo complete* [id number] Routine Ultrasound 12/26/19 08:19 Completed Pending at discharge Category Date Time Status Complete Blood Co unt w/Auto AM LABS Lab 12/29/19 04:00 Ordered Complete Blood Co unt w/Auto AM LABS Lab 12/30/19 04:00 Ordered Labs from last 24 hours 12/28/19 12/28/19 12/28/19 11:00 09:49 06:23 WBC RBC Hgb Hct MCV MCH MCHC RDW Plt Count MPV Neut % (Auto) Lymph % (Auto) [place] % (Auto) Eos % (Auto) Baso % (Auto) Neut # (Auto) Lymph # (Auto) [place] # (Auto) Eos # (Auto) Baso # (Auto) Nucleated RBC % (a uto) Nucleated RBCs # Sodium Potassium Chloride Carbon Dioxide Anion Gap BUN Creatinine GFR Calculation Glucose POC Glucose 258 270 186 Calculated Osmolal ity Calcium Total Bilirubin AST ALT Alkaline Phosphata se Total Protein Albumin Globulin 12/28/19 12/28/19 12/27/19 05:37 05:37 20:41 WBC 11.6 H RBC 3.62 L Hgb 10.7 L Hct 33.9 L MCV 93.6 MCH 29.6 MCHC 31.6 RDW 15.4 H Plt Count 262 MPV 10.0 Neut % (Auto) 64.7 Lymph % (Auto) 21.7 Bill[place] % (Auto) 9.3 Eos % (Auto) 3.2 Baso % (Auto) 0.3 Neut # (Auto) 7.5 Lymph # (Auto) 2.5 Bill[place] # (Auto) 1.1 H Eos # (Auto) 0.4 Baso # (Auto) 0.0 Nucleated RBC % (a uto) 0 Nucleated RBCs # 0.0 Sodium 143 Potassium 3.9 Chloride 102 Carbon Dioxide 28 Anion Gap 16.9 BUN 27 H Creatinine 1.8 H GFR Calculation 38.2 L Glucose 157 H POC Glucose 177 Calculated Osmolal ity 296 H Calcium 8.8 Total Bilirubin 0.3 AST 14 ALT 13 Alkaline Phosphata se 85 Total Protein 6.0 L Albumin 3.3 L Globulin 2.7 Vitals: Last Vital Signs Temp 98.5 F 12/28/19 12:00 Pulse 80 12/28/19 12:00 Resp 17 12/28/19 12:00 BP 108/67 12/28/19 12:00 Pulse Ox 100 12/28/19 12:00 Discharge Plan Discharge Patient Disposition: Xfer [facility] Condition: Stable Prescriptions: New furosemide 40 mg Tablet 80 mg PO DAILY Qty: 30 RF: 0 nystatin [Nyamyc] 100,000 unit/gram Powder 1 applic topical BID PRN (Reason: intertrigo) Qty: 30 RF: 0 cefdinir 300 mg capsule 300 mg PO DAILY 5 Days Qty: 5 RF: 0 Continued ondansetron HCl [Zofran] 4 mg Tablet 4 mg PO TID PRN (Reason: Nausea) RF: 0 magnesium hydroxide [Milk of Magnesia] 400 mg/5 mL Suspension 5 ml PO DAILY PRN (Reason: CONSTIPATON) RF: 0 Mucinex DM 30-600 mg Tablet Extended Release 12 Hr 1 tab PO Q12H PRN (Reason: Congestion) RF: 0 Hair,Skin and Nails 1 mg iron-66.7 mcg-1,000 mcg Tablet 1 tab PO DAILY RF: 0 Lantus U-100 Insulin 100 unit pen injector 10 unit SUBCUT DAILY Qty: 0 RF: 0 bupropion HCl [Wellbutrin SR] 150 mg Tablet Sustained-Release 12 Hr 150 mg PO Q12H RF: 0 clopidogrel [Plavix] 75 mg Tablet 75 mg PO DAILY RF: 0 aspirin 81 mg Tablet,Delayed Release (Dr/Ec) 81 mg PO DAILY RF: 0 carvedilol 3.125 mg Tablet 3.125 mg PO BID RF: 0 citalopram [Celexa] 20 mg Tablet 20 mg PO DAILY RF: 0 tamsulosin 0.4 mg Capsule 0.4 mg PO DAILY RF: 0 bisacodyl 10 mg Suppository 10 mg [place] DAILY PRN (Reason: CONSTIPATED) RF: 0 nitroglycerin 0.4 mg Tablet, Sublingual 0.4 mg SUBLINGUAL Q5M PRN (Reason: Chest Pain) RF: 0 budesonide 0.5 mg/2 mL suspension for nebulization 2 ml inhalation BID RF: 0 polyethylene glycol 3350 [Miralax] 17 gram/dose Powder 17 g PO DAILY PRN (Reason: Constipation) RF: 0 lisinopril 2.5 mg Tablet 2.5 mg PO DAILY RF: 0 Hold Instructions: Resume on 01/01/20. loratadine 10 mg Tablet 10 mg PO DAILY RF: 0 insulin lispro [Humalog KwikPen Insulin] 100 unit/mL Insulin Pen See Rx Instructions .ROUTE .COMPLEX RF: 0 rosuvastatin [Crestor] 20 mg Tablet 20 mg PO DAILY RF: 0 magnesium L-lactate [Magtab] 84 mg Tablet Extended Release 84 mg PO DAILY RF: 0 potassium chloride 20 mEq Tablet Extended Release 20 meq PO DAILY RF: 0 glucagon HCl 1 mg Recon Soln 1 mg IM Q20M PRN (Reason: Hypoglycemia) RF: 0 acetaminophen 325 mg 650 mg PO Q4-5H PRN (Reason: Pain) RF: 0 Discontinued furosemide 40 mg tablet 40 mg PO DAILY PRN (Reason: Edema) Qty: 5 RF: 0 Other Ambulatory Orders: Complete Blood Count w/Auto (Routine) Timeframe: 3 Days Location: Determined by Patient Ordered By: Kishor Perry Comprehensive Metabolic Panel (Routine) Timeframe: 3 Days Facility: [facility] - Location: Lab - Main Lab Ordered By: Kishor Perry Referrals: [facility] [Outside] Alma Siddiqui MD [Physician] - 2 weeks Hiram Black DO [Primary Care Provider] - 4-7 days Discharge Diet: Usual diet Discharge Activity: Increase activity as tolerated Activity Restrictions/Additional Instructions: Please call your doctor or present to emergency department if your condition worsens or you develop diarrhea, lightheadedness, fatigue or see blood in your stool or black stool. Discharge Attestations Time Spent in Discharge Care*: greater than 30 min Quality Metrics Clinical Quality Measures During this hospital stay, did patient experience: None Coding Level of Care Code Acute [place] for g Fwd Diagnoses Congestive heart failure I50.9 Heart failure chronicity: acute on chronic Heart failure type: unspecified CKD stage 3 secondary to diabetes E11.22; N18.3 S/P bilateral BKA (below knee amputation) Z89.512; Z89.511 COPD (chronic obstructive pulmonary disease) J44.9 Candidal intertrigo B37.2 Leukocytosis D72.829 Leukocytosis type: unspecified
[2019-12-28 14:30] VITALS: BP 108/67; PULSE 80; RESP 17; TEMP 36.9; O2SAT 100
--- NOTE | 2019-12-28 16:34 | PC.NURSE ---
patient was discharged back to SNF. discharge instructions were given to receiving nurse. patient alert and oriented. prescriptions sent with patient, peg Castillo transported patient back to [facility] for restorative care. iv discontinued and vital signs with in patients normal.
--- NOTE | 2019-12-28 17:47 | PM.PN ---
Subjective Subjective: Interval history: Patient is doing much better denies any complain today. Vitals/I&O/Wt Last Vital Signs Temp 98.5 F 12/28/19 14:30 Pulse 80 12/28/19 14:30 Resp 17 12/28/19 14:30 BP 108/67 12/28/19 14:30 Pulse Ox 100 12/28/19 14:30 12/28/19 12/28/19 12/28/19 06:59 14:59 22:59 Intake Total 720 / 720 Output Total 600 / 1600 500 / 500 Balance -600 / -540 720 / 720 -500 / 220 Physical Exam Narrative: EXAM NARRATIVE: GENERAL: Patient is Awake and oriented ?3 NECK: No jugular vein distension. HEENT: No cyanosis. No icterus. No pallor. HEART: Regular S1 and S2. No murmur, rub or gallop. LUNGS: Decreased breath sound bilaterally CENTRAL NERVOUS SYSTEM: Grossly nonfocal. EXTREMITIES: bka Data : 12/28/19 05:37 12/28/19 05:37 A&P Assessment and plan (1) Congestive heart failure: Well compensated. We'll continue medicine Status: Acute Qualifiers: Heart failure chronicity: acute on chronic Heart failure type: unspecified Qualified Code(s): I50.9 - Heart failure, unspecified (2) CKD stage 3 secondary to diabetes: Patient has baseline CKD, continue to monitor Status: Chronic (3) S/P bilateral BKA (below knee amputation): Post BKA. Remains asymptomatic. 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
== END 2019-12-28 15:35 | disposition skilled nursing facility (03) | DRG 291 ==
LOC: ER 05:53 → ICU 06:20 → MEDSURG 12-27 12:39
PROVIDERS: Admitting Provider Internal Medicine; Emergency Provider Emergency Medicine; Family Provider Internal Medicine; PCP Internal Medicine; Visit Provider Internal Medicine
DX: I13.0 Hypertensive heart and chronic kidney disease with heart failure and stage 1 through stage 4 chronic kidney disease, or unspecified chronic kidney disease (principal); I50.23 Acute on chronic systolic (congestive) heart failure; N18.3 Chronic kidney disease, stage 3 (moderate); E11.22 Type 2 diabetes mellitus with diabetic chronic kidney disease; Z66 Do not resuscitate; J44.9 Chronic obstructive pulmonary disease, unspecified; B37.2 Candidiasis of skin and nail; Z79.82 Long term (current) use of aspirin; Z79.02 Long term (current) use of antithrombotics/antiplatelets; Z79.4 Long term (current) use of insulin; Z89.512 Acquired absence of left leg below knee; Z89.511 Acquired absence of right leg below knee; E11.51 Type 2 diabetes mellitus with diabetic peripheral angiopathy without gangrene; I25.10 Atherosclerotic heart disease of native coronary artery without angina pectoris; I25.5 Ischemic cardiomyopathy; F17.210 Nicotine dependence, cigarettes, uncomplicated; F41.9 Anxiety disorder, unspecified; F32.9 Major depressive disorder, single episode, unspecified; N40.0 Benign prostatic hyperplasia without lower urinary tract symptoms; Z95.5 Presence of coronary angioplasty implant and graft
CPT/HCPCS: 12345; 36415; 36416; 36600; 71045; 80053; 81001; 82803; 82962; 83605; 83735; 83880; 84484; 85025; 85610; 87635; 87804; 93005; 93306; 94640; 94660; 96372; 96374; 96375; 97161; 99284; C9113; J0456; J0696; J1644; J1650; J1815; J1940; J2405; J2543; J2930; J3490; J7030; J7050; Q3014

== ENCOUNTER 2020-07-26 10:06 | Inpatient (IN) | payer MEDICARE, MEDICAID, SELFPAY ==
[2020-07-26] VITALS (53 sets, daily range): BP systolic 66–146; BP diastolic 33–89; PULSE 72–92; RESP 12–23; TEMP 36–36.5; O2SAT 85–100; BMI 25.8
--- NOTE | 2020-07-26 10:13 | XR_ITS ---
WS: [id number] Portable AP upright chest, 07/26/2020 Clinical Data: COVID Comparison: Portable chest, 12/25/2019. Findings: There is patchy opacity in the periphery of the right lower lobe. There may be a small righ t effusion. The left lung shows minimal opacities in the periphery of the mid lung. The heart is slig htly enlarged. No nodules or masses are seen. Monitor leads are on the chest wall. XR/XR chest 1V portable [id number] Impression: 1. Minimal patchy opacities in right lower lobe and periphery of left lung. 2. Possible small right pleural effusion or pleural reaction. 3. Cardiomegaly.
[2020-07-26] MEDS: sodium chloride 0.9% 1,000 ML 999 ML IV ×3 (10:30→14:43)
--- NOTE | 2020-07-26 10:35 | W.ED.COVID ---
HPI - COVID General: Chief Complaint: COVID symptoms Stated Complaint: hypotension/low oxygen Time Seen by Provider: 07/26/20 10:13 Triage information: Has fever, cough or shortness of breath. Exposure to COVID + person last 14 days History of Present Illness: HPI Narrative: 64-year-old male presents from [place]. He was diagnosed with Covid on 07/17. He comes in complaining of shortness of breath is also hypotensive. The patient is a DNR. He has some altered mental status today as well he is not really able to answer any questions. He is hypotensive and hypoxic. He is lethargic he will state he is not having any pain but he cannot really get much more other than than that. MD complaint: known COVID positive Prior covid testing: yes, results known COVID 19 common symptoms: positive fever(s), chills and cough; negative non-productive cough, productive cough, dyspnea, throat pain, nasal congestion, nausea, vomiting or diarrhea COVID 19 other sytmptoms: positive requiring oxygen, lethargy and confusion; negative chest pain Onset (ago): hour(s) Pertinent comorbid conditions: diabetes, hypertension, heart disease and COPD/respiratory disease Treatment prior to arrival: oxygen COVID Results: Nasal/Oral Coronavirus 2019 PCR See comment 12/25/19 06:00 12/25/19 Review of Systems Const: Reports: fever(s) and chills ENMT: Denies: throat pain, ear or mastoid pain, nasal discharge or nasal congestion Card: Denies: chest pain, edema, dyspnea on exertion or orthopnea Resp: Denies: dyspnea, productive cough or non-productive cough GI: Denies: abdominal pain, nausea, vomiting, hematemesis, coffee ground emesis, diarrhea, constipation, bloating, hematochezia or melena : Denies: flank pain, dysuria, urinary frequency or urinary urgency Skin/Breast: Denies: rash or pruritus Neuro: Reports: confusion PFSH ED PFSH: Medical History Abnormal cystoscopy Anxiety BPH (benign prostatic hyperplasia) Chronic systolic CHF (congestive heart failure) CKD stage 3 secondary to diabetes COPD (chronic obstructive pulmonary disease) Coronary artery disease Depression Dysphagia History of urinary retention Hypertension Peripheral vascular disease Type 2 diabetes mellitus Urgency incontinence Surgical History Coronary angioplasty status History of carpal tunnel surgery History of hip surgery S/P bilateral BKA (below knee amputation) S/P right coronary artery (RCA) stent placement Family History Other CAD (coronary artery disease) Diabetes Social History Smoking and tobacco status: current every day smoker cigarettes Packs smoked per day: 0.5 Years cigarettes smoked: 59 Second hand smoke exposure: Yes Alcohol intake: never Lives independently: No Housing: [facility] Marital status: Current occupational status: retired and disabled History of recent travel: No Physical Exam Const: COMMON NORMALS: no acute distress GENERAL APPEARANCE: cooperative and comfortable ORIENTATION/CONSCIOUSNESS: Yes awake, Yes oriented to person, Yes oriented to place and Yes oriented to time HENMT: COMMON NORMALS: normocephalic, atraumatic and hearing grossly normal bilaterally HEAD & SCALP: normocephalic and atraumatic Neck/C-Spine: COMMON NORMALS: no JVD Resp: AUSCULTATION: rhonchi and wheezes Cardio: COMMON NORMALS: no JVD, regular rate, regular rhythm and No murmurs present (Cardio) RATE: regular rate RHYTHM: regular rhythm GI: COMMON NORMALS: Soft to palpation and No hepatosplenomegaly present AUSCULTATION: Yes normoactive bowel sounds PALPATION: Yes Soft to palpation, No Tenderness to palpation present (GI), No Guarding due to palpation present (GI) and Yes No hepatosplenomegaly present Extremity: COMMON NORMALS: normal to inspection, capillary refill normal, no clubbing, cyanosis or edema, no calf tenderness and no pedal edema Neuro: SENSORIUM/ORIENTATION: Yes oriented to person, Yes oriented to place and Yes oriented to time Skin: COMMON NORMALS: no rashes or lesions noted GENERAL SKIN EXAM: no rashes or lesions noted Course Vital Signs: Vital signs: Vital Signs Temperature 98.2 F 07/28/20 13:16 Pulse Rate 94 07/28/20 12:00 Respiratory Rate 19 H 07/28/20 12:00 Blood Pressure 114/66 07/28/20 12:00 Pulse Oximetry 94 07/28/20 12:00 MDM - COVID MDM Narrative Medical decision making narrative: Patient is acute encephalopathy appears to be mostly driven by DKA. He also has known Covid. He is hypotensive as well we will go ahead and admit him discussed with Dr. Ham is pending the VQ this week he will see the patient here in the ER orders have been written. Lab Data Result diagrams: 07/28/20 02:30 07/28/20 02:30 Labs: Lab Results 07/26/20 07/26/20 07/26/20 Range/Units 10:34 10:34 10:34 WBC 8.4 (4.0-10.0) 10^3/uL RBC 4.13 (4.1-5.3) 10^6/uL Hgb 11.5 L (11.7-16.6) g/dL Hct 37.9 L (42.0-52.0) % MCV 91.8 (80-94) fL MCH 27.8 L (28.0-34.0) pg MCHC 30.3 (30.0-36.0) g/dL RDW 16.2 H (12.1-15.1) % Plt Count 313 (130-400) 10^3/cmm MPV 10.9 H (7.4-10.4) fL Neut % (Auto) 72.3 % Lymph % (Auto) 14.0 % [place] % (Auto) 10.7 % Eos % (Auto) 0.2 % Baso % (Auto) 0.5 % Neut # (Auto) 6.11 (1.8-7.7) 10^3/uL Lymph # (Auto) 1.2 (0.8-4.8) 10^3/uL [place] # (Auto) 0.9 (0.2-0.9) 10^3/uL Eos # (Auto) 0.0 (0.0-0.8) 10^3/uL Baso # (Auto) 0.0 (0.0-0.1) 10^3/uL Nucleated RBC % (auto) 0 % Nucleated RBCs # 0.0 /100WBC Fibrinogen 634 H (174-498) mg/dL D-Dimer 2.16 H (0-0.59) ug/mIFEU Specimen Type Sample Site ABG pH (7.35-7.45) ABG pCO2 (35-45) mmHg ABG pO2 (80.0-100.0) mmHg ABG HCO3 (22-26) mmol/L ABG Base Excess (-2.0-2.0) mmol/L Pop Test Hematocrit (42-52) % O2 Delivery Device O2 Liters/Min % FiO2 % Optical Laboratory Manager ID Sodium 128 L (136-145) mmol/L Potassium 7.8 H* (3.5-5.1) mmol/L Chloride 95 L (98-107) mmol/L Carbon Dioxide 12 L (22-29) mmol/L Anion Gap 28.8 H (5-19) BUN 169 H* D (8-23) mg/dL Creatinine 6.0 H* (0.7-1.2) mg/dL GFR Calculation 9.5 L (90-130) mL/min Glucose 471 H (65-115) mg/dL Calculated Osmolality 343 H (285-295) mOsm/kg Lactic Acid (0.5-2.2) mmol/L Calcium 8.2 L (8.5-10.5) mg/dL Total Bilirubin 0.2 (0.15-1.2) mg/dL AST 25 (0-40) U/L ALT 34 (0-41) U/L Alkaline Phosphatase 190 H (40-130) IU/L Lactate Dehydrogenase 160 (135-225) U/L Creatine Kinase 56 (39-308) U/L C-Reactive Protein 77.6 H (0.0-4.9) mg/L Total Protein 6.6 (6.6-8.7) g/dL Albumin 3.1 L (3.5-5.2) g/dL Globulin 3.5 (1.3-4.6) g/dL Procalcitonin 0.48 (0-0.5) ng/mL Serum Ketones (Negative) Hepatitis C Antibody (Nonreactive) 07/26/20 07/26/20 07/26/20 Range/Units 10:34 10:34 10:34 WBC (4.0-10.0) 10^3/uL RBC (4.1-5.3) 10^6/uL Hgb (11.7-16.6) g/dL Hct (42.0-52.0) % MCV (80-94) fL MCH (28.0-34.0) pg MCHC (30.0-36.0) g/dL RDW (12.1-15.1) % Plt Count (130-400) 10^3/cmm MPV (7.4-10.4) fL Neut % (Auto) % Lymph % (Auto) % [place] % (Auto) % Eos % (Auto) % Baso % (Auto) % Neut # (Auto) (1.8-7.7) 10^3/uL Lymph # (Auto) (0.8-4.8) 10^3/uL [place] # (Auto) (0.2-0.9) 10^3/uL Eos # (Auto) (0.0-0.8) 10^3/uL Baso # (Auto) (0.0-0.1) 10^3/uL Nucleated RBC % (auto) % Nucleated RBCs # /100WBC Fibrinogen (174-498) mg/dL D-Dimer (0-0.59) ug/mIFEU Specimen Type Sample Site ABG pH (7.35-7.45) ABG pCO2 (35-45) mmHg ABG pO2 (80.0-100.0) mmHg ABG HCO3 (22-26) mmol/L ABG Base Excess (-2.0-2.0) mmol/L Pop Test Hematocrit (42-52) % O2 Delivery Device O2 Liters/Min % FiO2 % Optical Laboratory Manager ID Sodium (136-145) mmol/L Potassium (3.5-5.1) mmol/L Chloride (98-107) mmol/L Carbon Dioxide (22-29) mmol/L Anion Gap (5-19) BUN (8-23) mg/dL Creatinine (0.7-1.2) mg/dL GFR Calculation (90-130) mL/min Glucose (65-115) mg/dL Calculated Osmolality (285-295) mOsm/kg Lactic Acid 1.4 (0.5-2.2) mmol/L Calcium (8.5-10.5) mg/dL Total Bilirubin (0.15-1.2) mg/dL AST (0-40) U/L ALT (0-41) U/L Alkaline Phosphatase (40-130) IU/L Lactate Dehydrogenase (135-225) U/L Creatine Kinase (39-308) U/L C-Reactive Protein (0.0-4.9) mg/L Total Protein (6.6-8.7) g/dL Albumin (3.5-5.2) g/dL Globulin (1.3-4.6) g/dL Procalcitonin (0-0.5) ng/mL Serum Ketones Positive H (Negative) Hepatitis C Antibody Non-reactive (Nonreactive) 07/26/20 Range/Units 10:40 WBC (4.0-10.0) 10^3/uL RBC (4.1-5.3) 10^6/uL Hgb (11.7-16.6) g/dL Hct (42.0-52.0) % MCV (80-94) fL MCH (28.0-34.0) pg MCHC (30.0-36.0) g/dL RDW (12.1-15.1) % Plt Count (130-400) 10^3/cmm MPV (7.4-10.4) fL Neut % (Auto) % Lymph % (Auto) % [place] % (Auto) % Eos % (Auto) % Baso % (Auto) % Neut # (Auto) (1.8-7.7) 10^3/uL Lymph # (Auto) (0.8-4.8) 10^3/uL [place] # (Auto) (0.2-0.9) 10^3/uL Eos # (Auto) (0.0-0.8) 10^3/uL Baso # (Auto) (0.0-0.1) 10^3/uL Nucleated RBC % (auto) % Nucleated RBCs # /100WBC Fibrinogen (174-498) mg/dL D-Dimer (0-0.59) ug/mIFEU Specimen Type Arterial Sample Site Radial, left ABG pH 7.16 L* (7.35-7.45) ABG pCO2 29.4 L (35-45) mmHg ABG pO2 128.0 H (80.0-100.0) mmHg ABG HCO3 10.4 L (22-26) mmol/L ABG Base Excess -17.0 L (-2.0-2.0) mmol/L Pop Test Pos Hematocrit 35.1 L (42-52) % O2 Delivery Device Nc O2 Liters/Min 5.0 % FiO2 40.0 % Optical Laboratory Manager ID Gd Sodium (136-145) mmol/L Potassium (3.5-5.1) mmol/L Chloride (98-107) mmol/L Carbon Dioxide (22-29) mmol/L Anion Gap (5-19) BUN (8-23) mg/dL Creatinine (0.7-1.2) mg/dL GFR Calculation (90-130) mL/min Glucose (65-115) mg/dL Calculated Osmolality (285-295) mOsm/kg Lactic Acid (0.5-2.2) mmol/L Calcium (8.5-10.5) mg/dL Total Bilirubin (0.15-1.2) mg/dL AST (0-40) U/L ALT (0-41) U/L Alkaline Phosphatase (40-130) IU/L Lactate Dehydrogenase (135-225) U/L Creatine Kinase (39-308) U/L C-Reactive Protein (0.0-4.9) mg/L Total Protein (6.6-8.7) g/dL Albumin (3.5-5.2) g/dL Globulin (1.3-4.6) g/dL Procalcitonin (0-0.5) ng/mL Serum Ketones (Negative) Hepatitis C Antibody (Nonreactive) COVID Results: Nasal/Oral Coronavirus 2019 PCR See comment 12/25/19 06:00 12/25/19 Discharge Plan Discharge Patient Disposition: Admitted As Inpatient Admit Provider: Srikanth Ham Clinical Impression: Acute encephalopathy, COVID-19, DKA (diabetic ketoacidoses), Type 2 diabetes mellitus, CKD stage 3 secondary to diabetes, S/P bilateral BKA (below knee amputation), Coronary artery disease, Hypertension, BLAINE (acute kidney injury) Condition: Stable Referrals: Hiram Black DO [Primary Care Provider] - 4-7 days Discharge Diet: As Directed, Diabetic and Soft Mechanical Discharge Activity: Increase activity as tolerated Additional Instructions: Please stop smoking. Continue smoking will lead to progression of lung disease, worsening hypoxia, in addition to risk factors for different cancers, as well as heart attack and stroke among other problems. Use nicotine patches, lozenges to help fight cravings. Doing well on room air, however, may use oxygen as needed. Target saturation 92%. Continue oxygen nightly as previously. Continue nightly CPAP. Please never smoked anywhere near oxygen due to severe fire hazard, risk of inhalational breaths, severe disability or . Please have that longterm recheck your renal function in 3 days to confirm that it is continuing to improve. Insulin Lantus dose is increased to 12 units. Encourage oral nutrition hydration. Add protein shakes/Glucerna to meals. Avoid any nephrotoxic medications. Avoid phosphate enemas. You have kidney injury lisinopril for now is held. Recheck renal function and potassium in 3 days. Please hold Lasix for the next 3 days, reassess volume status, then consider resuming Lasix at possibly 60 mg. Continue aspiration precautions. Mechanical soft diabetic diet with nectar thick liquids. Interventions: ED Discharge Assessment Last Done: 07/26/20 16:18 ED Charges Last Done: 07/26/20 16:18 Discharge Date/Time: 07/26/20 16:19 Coding Level of Care Code ED Color Making Supervisor for Dimag Fwd Exam Comprehensive
[2020-07-26 10:58] LABS: ABG PCO2 29.4 mmHg (35-45); Arterial Blood Gas Hematocrit 35.1 % (42-52); Blood Gas Allen Test Pos; Blood Gas Operator Identificat GD; Blood Gas Sample Site Radial, left; Blood Gas Sample Type Arterial; HCO3 ABG 10.4 mmol/L (22-26); Oxygen Device NC
[2020-07-26 10:59] LABS: ABG PH Result 7.16 (7.35-7.45)
[2020-07-26 11:00] LABS: Basophils % 0.5 %; Eosinophils % 0.2 %; Hematocrit 37.9 % (42.0-52.0); Hemoglobin 11.5 g/dL (11.7-16.6); Lymphocytes # 1.2 10^3/uL (0.8-4.8); Mean Corpuscular HGB Conc 30.3 g/dL (30.0-36.0); Mean Corpuscular Hemoglobin 27.8 pg (28.0-34.0); Mean Corpuscular Volume 91.8 fL (80-94); Mean Platelet Volume 10.9 fL (7.4-10.4); Monocytes # 0.9 10^3/uL (0.2-0.9); Monocytes % 10.7 %; Neutrophils # 6.11 10^3/uL (1.8-7.7); Neutrophils % 72.3 %; Nucleated Red Blood Cells % 0 %; Platelet Count 313 10^3/cmm (130-400); Red Blood Count 4.13 10^6/uL (4.1-5.3); Red Cell Distribution Width 16.2 % (12.1-15.1); White Blood Count 8.4 10^3/uL (4.0-10.0)
--- NOTE | 2020-07-26 11:02 | CTR_ITS ---
PROCEDURE INFORMATION: Exam: CT Angiography Chest With Contrast Exam date and time: 07/26/2020 2:47 PM Age: 64 years old Clinical indication: Dyspnea; Patient HX: Covid; Additional info: Hypoxia TECHNIQUE: Imaging protocol: Computed tomographic angiography of the chest with intravenous contrast. 3D rendering (Not supervised by radiologist): MIP and/or 3D reconstructed images were created by the technologist. Radiation optimization: All CT scans at this facility use at least one of these dose optimization techniques: automated exposure control; mA and/or kV adjustment per patient size (includes targeted exams where dose is matched to clinical indication); or iterative reconstruction. Contrast material: VISIPAQUE 320; Contrast volume: 80 ml; Contrast route: INTRAVENOUS (IV); COMPARISON: CTA Chest-Pulmonary Emb [id number] 02/07/2019 9:25 PM RADIATION DOSE METRICS: Total DLP (mGy-cm): 588.85 FINDINGS: Pulmonary arteries: No pulmonary emboli. Aorta: No aortic aneurysm. No aortic dissection. Lungs: Bilateral multifocal ground-glass opacities. Minimal partial consolidation in the right lung base. Pleural space: No pleural effusion or pneumothorax. Minimal right pleural thickening. Heart: No cardiomegaly. No pericardial effusion. Coronary artery calcifications. Lymph nodes: Small stable mediastinal and hilar lymph nodes, many of which are calcified, unchanged from 02/07/2019. Bones/joints: No acute findings. Soft tissues: Unremarkable. CT/CT angio chest PE protcl [id number] IMPRESSION: No pulmonary embolism. Bilateral pneumonia consistent with COVID-19 pneumonia Radiation Dose CTDIVOL = (mGy): DLP = 588.85 (mGy-cm)
[2020-07-26 11:09] LABS: Fibrinogen 634 mg/dL (174-498)
[2020-07-26] MEDS: insulin regular-human 100 units/1 mL 20 UNIT IVP (11:09)
[2020-07-26 11:12] LABS: D Dimer 2.16 ug/mIFEU (0-0.59)
[2020-07-26 11:18] LABS: Ketone (Acetest) Serum Positive (Negative)
[2020-07-26 11:19] LABS: Lactic Sepsis W/Reflex 1.4 mmol/L (0.5-2.2)
[2020-07-26 11:25] LABS: Procalcitonin 0.48 ng/mL (0-0.5)
[2020-07-26 11:36] LABS: Alanine Aminotransferase 34 U/L (0-41); Albumin Level 3.1 g/dL (3.5-5.2); Alkaline Phosphatase 190 IU/L (40-130); Anion Gap 28.8 (5-19); Aspartate Amino Transferase 25 U/L (0-40); C Reactive Protein 77.6 mg/L (0.0-4.9); Calcium 8.2 mg/dL (8.5-10.5); Carbon Dioxide 12 mmol/L (22-29); Chloride 95 mmol/L (98-107); Creatine Phosphokinase 56 U/L (39-308); Globulin 3.5 g/dL (1.3-4.6); Glomerular Filtration Rate 9.5 mL/min (90-130); Glucose 471 mg/dL (65-115); Lactate Dehydrogenase 160 U/L (135-225); Sodium 128 mmol/L (136-145); Total Bilirubin 0.2 mg/dL (0.15-1.2); Total Protein 6.6 g/dL (6.6-8.7)
[2020-07-26 11:55] LABS: Blood Urea Nitrogen 169 mg/dL (8-23); Osmolality Calculated 343 mOsm/kg (285-295); Potassium 7.8 mmol/L (3.5-5.1)
--- NOTE | 2020-07-26 12:42 | US_ITS ---
WS: [id number] ULTRASOUND RENAL TECHNIQUE: Ultrasound examination of both kidneys. CLINICAL INFORMATION: roxanna COMPARISON: None. FINDINGS: RIGHT: Right kidney is normal in size and appearance. Echogenicity: Normal. Hydronephrosis: None. Perinephric fluid: None. Right kidney measures: 10.4 cm x 5.5 cm x 5.5 cm. LEFT: Left kidney is normal in size and appearance. Echogenicity: Normal. Hydronephrosis: None. Perinephric fluid: None. Left kidney measures: 9.9 cm x 5.6 cm x 5.0 cm. Normal visualized aorta. Distended urine filled bladder. US/US renal BI* [id number] IMPRESSION: 1. Normal renal ultrasound. 2. Urine distended bladder.
--- NOTE | 2020-07-26 12:50 | PM.CONSULT ---
Providers/Reason For Consult Consulting Physican/Specialty*: adriana awad md Reason for Consult*: BLAINE, DKA, hyperkalemia Requesting Physcian: Dr. Espinoza Primary Care Provider: Hiram Black DO History of Present Illness History of Present Illness Tashi Cole is a 64 year old male DM, PVD s/p b/l BKA, copd, lung issues, chronic systolic CHF, s/p AICD, htn, hyperlipidemia. CKD stage 3b/4-baseline cr 1.8- 2. Pt had recent dx of COVID-19. Pt sent from [facility] w/ AMS, SOB, hypotensive. Pt found to have BLAINE, hyperkalemia, inc AGMA, normal lactate, glu 471. Pt being treated for COVID-19 SARS-2 pna. cxr may have superimposed bacterial pna. renal called for above. Review of Systems General: Reports: ROS unobtainable due to mental status Meds/Allergies Home Medications and Allergies Home Medications Medication Instructions Recorded Confirmed Last Taken Type acetaminophen 650 mg PO Q4-5H PRN 10/19/19 05/18/20 12/24/19 18:00 History aspirin 81 mg PO DAILY 10/19/19 05/18/20 12/24/19 08:00 History 81 mg bisacodyl 10 mg UT DAILY PRN 10/19/19 05/18/20 12/23/19 08:00 History 10 mg budesonide 2 ml INHALATION BID 10/19/19 05/18/20 12/24/19 22:00 History 0.5mg bupropion HCl [Wellbutrin SR] 150 mg PO Q12H 10/19/19 05/18/20 12/24/19 18:00 History 150 mg carvedilol 3.125 mg PO BID 10/19/19 05/18/20 12/24/19 18:00 History 3.125mg clopidogrel [Plavix] 75 mg PO DAILY 10/19/19 05/18/20 12/24/19 08:00 History 75 mg glucagon HCl 1 mg IM Q20M PRN 10/19/19 05/18/20 Unknown History insulin lispro [Humalog KwikPen See Rx Instructions .ROUTE .COMPLEX 10/19/19 05/18/20 12/24/19 21:00 History Insulin] lisinopril 2.5 mg PO DAILY 10/19/19 05/18/20 12/24/19 08:00 History loratadine 10 mg PO DAILY 10/19/19 05/18/20 12/24/19 08:00 History magnesium L-lactate [Magtab] 84 mg PO DAILY 10/19/19 05/18/20 12/24/19 08:00 History 84 mg nitroglycerin 0.4 mg SUBLINGUAL Q5M PRN 10/19/19 05/18/20 Unknown History polyethylene glycol 3350 [Miralax] 17 g PO DAILY PRN 10/19/19 05/18/20 Unknown History potassium chloride 20 meq PO DAILY 10/19/19 05/18/20 12/24/19 08:00 History 20 meq rosuvastatin [Crestor] 20 mg PO DAILY 10/19/19 05/18/20 12/24/19 08:00 History 20 tamsulosin 0.4 mg PO DAILY 10/19/19 05/18/20 12/24/19 08:00 History 0.4mg Hair,Skin and Nails 1 tab PO DAILY 12/15/19 05/18/20 12/24/19 08:00 History 1 tab Mucinex DM 1 tab PO Q12H PRN 12/15/19 05/18/20 12/24/19 18:00 History 1 tab magnesium hydroxide [Milk of 5 ml PO DAILY PRN 12/15/19 05/18/20 Unknown History Magnesia] ondansetron HCl [Zofran] 4 mg PO TID PRN 12/15/19 05/18/20 Unknown History Lantus U-100 Insulin 10 unit SUBCUT DAILY #0 12/18/19 05/18/20 12/24/19 08:00 Rx furosemide 80 mg PO DAILY #30 tab 12/28/19 05/18/20 Unknown Rx albuterol sulfate 2.5 mg INHALATION Q4H PRN 03/28/20 05/18/20 Unknown History bisacodyl 10 mg/30 mL enema 5 mg UT DAILY PRN 03/28/20 05/18/20 Unknown History ipratropium 0.5 mg-albuterol 3 mg 3 ml INHALATION QID PRN 03/28/20 05/18/20 Unknown History (2.5 mg base)/3 mL nebulization soln citalopram 20 mg PO DAILY 07/26/20 07/26/20 07/26/20 History Allergies Allergy/AdvReac Type Severity Reaction Status Date / Time tramadol Allergy ADR-Vomitin Verified 05/02/20 08:52 g Current Medications Current Medications Generic Name Dose Route Start Last Admin Trade Name Freq PRN Reason Stop Dose Admin Norepinephrine Bitartrate 4 mg 254 mls @ 0 mls/hr 07/26/20 10:15 07/26/20 11:04 / Dextrose IV 3 mcg/min .Q0M OKSANA 11.4 mls/hr Administration Protocol Per Protocol PFSH Acute PFSH: Medical History Abnormal cystoscopy Anxiety BPH (benign prostatic hyperplasia) Chronic systolic CHF (congestive heart failure) CKD stage 3 secondary to diabetes COPD (chronic obstructive pulmonary disease) Coronary artery disease Depression Dysphagia History of urinary retention Hypertension Peripheral vascular disease Type 2 diabetes mellitus Urgency incontinence Surgical History Coronary angioplasty status History of carpal tunnel surgery History of hip surgery S/P bilateral BKA (below knee amputation) S/P right coronary artery (RCA) stent placement Family History Other CAD (coronary artery disease) Diabetes Social History Smoking and tobacco status: current every day smoker cigarettes Packs smoked per day: 0.5 Years cigarettes smoked: 59 Second hand smoke exposure: Yes Alcohol intake: never Lives independently: No Housing: Skilled Nursing Marital status: Current occupational status: retired and disabled History of recent travel: No Vitals/I&O/Wt Last Vital Signs Temp 97.7 F 07/26/20 10:19 Pulse 79 07/26/20 10:59 Resp 22 H 07/26/20 10:19 BP 66/33 07/26/20 10:19 Pulse Ox 100 07/26/20 10:59 Weight last 48 hrs Weight 77.111 kg Physical Exam Narrative: EXAM NARRATIVE: altered ms. minimally responsive in bed, 5 l nc02 heent- nc/at neck supple lungs b/l crackles heart reg abd soft, nt ext b/l bka, no edema neuro- minimally responsive to pain Data Micro: Micro: Microbiology 07/26/20 10:30 Blood Culture - Pr eliminary Blood SPECIMEN COLLETiffanie DÍAZ A&P Additional A&P Information 64 yr old man CHF- chronic systolic, COPD, PVD s/p b/l BKA, ICD, htn, hyperlipidemia 1. septic shock- agree w/ treat covid-19 PLEASE ASK PHARMACY IF SAFE TO GIVE REMDESIVIR W/ BLAINE AND ESTIMATED GFR UNDER 5 -EVALUATE for possible medical facility acquired pna- consider renal dose vanco and zosyn 2. inc agma likely from BLAINE and DKA -check ua. check acetones. urine ketones are positive c/w DKA - lactate only 1.4 -monitor w/ insulin drip and ivf 3/ BLAINE- likely prerenal vs atn- on lisinopril and i am concerned that he was on a phos based enema -check renal us -ivf -check ck -if no improvement soon, may need dialysis 4. hyperkalemia- d/c lisinopril. -ivf -calcium, insulin, albuterol. bicarb 5. check repeat labs soon discussed w/ Dr. Espinoza and Dr. Corbin Consult Attestations Medical Necessity Statement: septic shock, blaine, ams Time Spent in Patient Care: Greater than 35 minutes Critical Care Time: Critical Care Time (min): 45 Coding Level of Care Code Acute Electric Sign Wirer for Pepe Mcfarland
[2020-07-26] MEDS: insulin regular-human 250 UNIT in sodium chloride 0.9% 250 ML 10.1 UNIT IV (12:54)
[2020-07-26] MEDS: sodium bicarbonate 8.4% 1 mEq/mL 50mL Syr 100 MEQ IVP (13:04)
[2020-07-26] MEDS: calcium gluconate 0.1 gm/mL 10% SDV 10mL 2 GM IVP (13:05)
[2020-07-26] MEDS: levofloxacin-dextrose 5 % 500 MG/100 ML PREMIX 100 MG IV (13:13)
[2020-07-26] MEDS: vancomycin 1,000 MG in sodium chloride 0.9% 250 ML 250 MG IV (13:13)
--- NOTE | 2020-07-26 13:14 | PM.HP ---
Providers/Chief Complaint Primary Care Provider: Hiram Black DO Chief Complaint: low 02 History of Present Illness Tashi Cole is a 64 year old gentleman, custodial resident with history of CHF, EF 31%, with most recent mission here back in December due to CHF exacerbation, also COPD, chronically on oxygen at night and as needed during the day, GRACIA, at night on CPAP, chronic kidney disease, CAD, DM 2, bilateral BKA amputee, able to walk only with assistance, mostly uses wheelchair prescription with custodial, with reported tested positive for coronavirus on 07/17, in the last 4 days was not very active, mostly staying in bed, and with poor appetite. This morning was moved to a different unit, there noted significantly weaker, not sitting upright, not interacting well, blood glucose elevated at 537, blood pressure low 76/42. Was taken to the emergency room. There initially noted again hypotensive, 66/, received 1000 mill bolus of normal saline, started on norepinephrine 6 mcg infusion. Noted in metabolic acidosis, pH 7.16, CO2 29.4, PO2 128, bicarb 10.4. Afebrile, without leukocytosis, but with minimal patchy opacities noted in the right lower lobe and periphery of left lung. Possible small right pleural effusion or pleural reaction. Cardiomegaly. Noted in 2000 doses with symptoms positive, elevated glucose. Noted in acute kidney injury with serum creatinine of 6, potassium 7.8. Bicarb 12. Anion gap 28.8. Lactic acid 1.4. Moderate alkaline phosphatase elevation of 190. D-dimer elevated at 2.16. CRP elevated at 77.6. Fibrinogen is not low. He is currently confused, responds with moans, appears to be moving all extremities, but otherwise not answering questions or following commands. Prescription with custodial he has been receiving Lovenox 40 mg daily which has been ordered for 28 days. He also had received 7-day course of Bactrim and mupirocin starting on 07/11 for concern of impetiginous rash on his arm. Prior to that received 7-day course of Levaquin on 06/27. Review of Systems Narrative: ROS obtained from ER, NH staff Const: Reports: change in appetite, fatigue and malaise; Denies: fever(s), chills or body aches Eyes: Denies: change in vision or eye redness ENMT: Denies: throat pain, oral sores or ear or mastoid pain Card: Denies: chest pain, edema, pre-syncope or dyspnea on exertion Resp: Reports: other (correction RN describes lungs sounded horrible this morning.); Denies: productive cough, change in phlegm color or hemoptysis GI: Reports: other (Poor appetite); Denies: abdominal pain, nausea, vomiting, diarrhea, constipation, hematochezia or melena : Denies: flank pain, difficulty urinating, urinary frequency or hematuria Musc: Denies: back pain, joint swelling or joint redness Skin/Breast: Denies: rash, sores or new lesions Neuro: Denies: headache(s), numbness in extremities, weakness in extremities, dizziness, confusion or seizure-like activity Endo: Denies: polyuria or polydipsia Ashvin/Lymph: Denies: easy bleeding or purpura All/Imm: Denies: urticaria, throat swelling or tongue swelling Medications/Allergies Home Medications Medication Instructions Recorded Confirmed Last Taken Type acetaminophen 650 mg PO Q4-5H PRN 10/19/19 05/18/20 12/24/19 18:00 History aspirin 81 mg PO DAILY 10/19/19 05/18/20 12/24/19 08:00 History 81 mg bisacodyl 10 mg [place] DAILY PRN 10/19/19 05/18/20 12/23/19 08:00 History 10 mg budesonide 2 ml INHALATION BID 10/19/19 07/26/20 07/26/20 History bupropion HCl [Wellbutrin SR] 150 mg PO Q12H 10/19/19 07/26/20 07/26/20 History carvedilol 3.125 mg PO BID 10/19/19 05/18/20 12/24/19 18:00 History 3.125mg clopidogrel [Plavix] 75 mg PO DAILY 10/19/19 07/26/20 07/26/20 History insulin lispro [Humalog KwikPen See Rx Instructions .ROUTE .COMPLEX 10/19/19 05/18/20 12/24/19 21:00 History Insulin] lisinopril 2.5 mg PO DAILY 10/19/19 07/26/20 07/26/20 History loratadine 10 mg PO DAILY 10/19/19 07/26/2007/26/20 History magnesium L-lactate [Magtab] 84 mg PO DAILY 10/19/19 07/26/20 07/26/20 History nitroglycerin 0.4 mg SUBLINGUAL Q5M PRN 10/19/19 05/18/20 Unknown History potassium chloride 20 meq PO DAILY 10/19/19 05/18/20 12/24/19 08:00 History 20 meq rosuvastatin [Crestor] 20 mg PO DAILY 10/19/19 05/18/20 12/24/19 08:00 History 20 tamsulosin 0.4 mg PO DAILY 10/19/19 07/26/20 07/26/20 History Hair,Skin and Nails 1 tab PO DAILY 12/15/19 07/26/20 07/26/20 History Mucinex DM 1 tab PO Q12H PRN 12/15/19 07/26/20 07/26/20 History magnesium hydroxide [Milk of 5 ml PO DAILY PRN 12/15/19 05/18/20 Unknown History Magnesia] ondansetron HCl [Zofran] 4 mg PO TID PRN 12/15/19 05/18/20 Unknown History Lantus U-100 Insulin 10 unit SUBCUT DAILY #0 12/18/19 05/18/20 12/24/19 08:00 Rx furosemide 80 mg PO DAILY #30 tab 12/28/19 05/18/20 Unknown Rx albuterol sulfate 2.5 mg INHALATION Q4H PRN 03/28/20 05/18/20 Unknown History citalopram 20 mg PO DAILY 07/26/20 07/26/20 07/26/20 History pantoprazole 40 mg PO BID 07/26/20 07/26/20 07/26/20 History polyethylene glycol 3350 [Miralax] 17 g PO DAILY 07/26/20 07/26/20 07/26/20 History sodium phosphates [Enema 118 ml [place] DAILY PRN 07/26/20 07/26/20 Unknown History Disposable] Allergies Allergy/AdvReac Type Severity Reaction Status Date / Time tramadol Allergy ADR-Vomitin Verified 05/02/20 08:52 g PFSH Acute PFSH: Medical History Abnormal cystoscopy Anxiety BPH (benign prostatic hyperplasia) Chronic systolic CHF (congestive heart failure) CKD stage 3 secondary to diabetes COPD (chronic obstructive pulmonary disease) Coronary artery disease Depression Dysphagia History of urinary retention Hypertension Peripheral vascular disease Type 2 diabetes mellitus Urgency incontinence Surgical History Coronary angioplasty status History of carpal tunnel surgery History of hip surgery S/P bilateral BKA (below knee amputation) S/P right coronary artery (RCA) stent placement Family History Other CAD (coronary artery disease) Diabetes Social History Smoking and tobacco status: current every day smoker cigarettes Packs smoked per day: 0.5 Years cigarettes smoked: 59 Second hand smoke exposure: Yes Alcohol intake: never Lives independently: No Housing: [facility] Marital status: Current occupational status: retired and disabled History of recent travel: No Vitals/I&O/Wt Last Vital Signs Temp 97.7 F 07/26/20 10:19 Pulse 79 07/26/20 10:59 Resp 22 H 07/26/20 10:19 BP 66/33 07/26/20 10:19 Pulse Ox 100 07/26/20 10:59 Weight last 48 hrs Weight 77.111 kg Physical Exam Const: COMMON NORMALS: no acute distress EXAM LIMITATIONS: altered mental status ORIENTATION/CONSCIOUSNESS: Yes patient obtunded HENMT: COMMON NORMALS: oropharynx normal Neck/C-Spine: COMMON NORMALS: no JVD Resp: COMMON NORMALS: normal respiratory effort AUSCULTATION: diminished lung sounds Cardio: COMMON NORMALS: no JVD, regular rhythm, S1 normal heart sound present, S2 normal heart sound present and No murmurs present (Cardio) RHYTHM: regular rhythm HEART SOUNDS: S1 normal heart sound present and S2 normal heart sound present GI: COMMON NORMALS: Normal to inspection, nondistended, normoactive bowel sounds present, Soft to palpation and non-tender PALPATION: Yes Soft to palpation Extremity: COMMON NORMALS: no joint enlargement and no pedal edema NARRATIVE EXTREMITY EXAM: Bilateral BKA. Some mild patchy erythema/old pressure ulcers? Noted on bilateral stumps. No open ulcers. No deep tissue injury. Neuro: COMMON NORMALS: moves all extremities Skin: COMMON NORMALS: no rashes or lesions noted GENERAL SKIN EXAM: no rashes or lesions noted Data : 07/26/20 10:34 07/26/20 10:34 Micro: Microbiology 07/26/20 10:30 Blood Culture - Preliminary Blood SPECIMEN COLLECTED A&P Assessment and plan (1) BLAINE (acute kidney injury): Acute kidney injury superimposed on chronic kidney disease with metabolic acidosis, creatinine is 6, with hyperkalemia 7.8. Bicarbonate 12. Anion gap 28.8. He is confused, possible uremic encephalopathy, in addition to other metabolic abnormalities including DKA, infection, possibly CHF This could be due to a number of causes, including hypotension causing prerenal injury, in addition to lisinopril, recent Bactrim course he received at custodial. He has had poor oral intake last 4 days reported as well. He is also normally on daily 80 mg of Lasix. Hold any offending medications at this time. Received fluid challenge. Bicarbonate. Appreciate nephrology assessment. Hemodialysis catheter has been requested and will be placed by surgery. Per discussion with ER physician I am informed he can be dialyzed in ER to expedite the process. Discussed with his daughter who is his power of banking attorney and she is agreeable, and will provide consent for this. Otherwise continue pressor and other hemodynamic support to help maintain blood pressures. Urinary studies have been ordered. Noted normal renal ultrasound. Urine distended bladder. Place Mejia catheter for accurate I&O. Status: Acute (2) Acute encephalopathy: Delirium secondary to acute encephalopathy due to a number of metabolic abnormalities including acute kidney injury, possible uremia, metabolic acidosis, DKA, infection with pneumonia, also chronic congestive heart failure with low EF. Status: Acute (3) Hyperkalemia: Severe hyperkalemia 7.8. In ER so far received treatment with calcium gluconate. He is started on insulin drip due to DKA. Kayexalate. Arrangements are made for placement of hemodialysis catheter for HD. Status: Acute (4) DKA (diabetic ketoacidoses): Insulin drip. Monitor electrolytes. IV hydration. Full threshold to discontinue given CHF. Monitor hemodynamics, volume status. Status: Acute (5) Pneumonia: Right lower lobe noted patchy infiltrate. Possible sepsis, although does not fit sepsis criteria. Does have COVID-19, possible COVID-19 pneumonia. Right lower lobe distribution, AMS, is also concerning for aspiration pneumonia. Received Levaquin and vancomycin in ER. We will for now start on Zosyn. Due to poor renal function is not a candidate continue remdesivir. We will continue Decadron. Collect sputum cultures if possible. Urine bacterial antigens. Status: Acute (6) Chronic systolic CHF (congestive heart failure): Chronic systolic congestive heart failure. EF 31%. Currently on as needed oxygen. Oxygen at night. Normally on 80 mg IV Lasix daily. Cardiomegaly noted on chest x-ray. Clinically did not appear fluid overloaded. Some patchy opacities in the periphery of the lungs noted on chest x-ray. Received fluid challenge due to severe kidney injury, hypotension, possible sepsis. Arrangements are in place for hemodialysis catheter and dialysis. Lasix held for now. Consider Lasix challenge depending on hemodynamics, volume status. Mejia placed for accurate EDWIN. Will assess TTE. Check troponin series. Status: Acute (7) COPD (chronic obstructive pulmonary disease): Continue albuterol. Budesonide. Oxygen support. Nightly BiPAP. Possible COPD exacerbation. Diminished lung sounds. Antibiotic as above. Also steroids as above. Status: Chronic (8) Metabolic acidosis: Multifactorial, including DKA, kidney injury, hypotension, chronic systolic CHF with hypoperfusion, although lactic acid is normal. Status: Acute (9) COVID-19: He is on minimal oxygen. Afebrile. Last 4 days noted poor oral intake, not very active, mostly staying in bed. He unfortunately is not able to give her review of systems. Otherwise he is not clear whether symptoms in large part triggered by COVID-19 infection. D-dimer noted elevated 2.16. CRP elevated at 77.6. He has been on prophylactic 40 mg daily Lovenox. At this time not candidate for remdesivir due to poor renal function. Started on Decadron. Oxygen support. Nightly he is on BiPAP. Neb treatments. Per discussion with his daughter and with custodial CODE STATUS is DNR/DNI. Daughter who is power of banking attorney states he would be okay to go to ICU and receive treatment there with pressors, repeat hemodialysis. Status: Acute (10) Nicotine dependence, cigarettes, with other nicotine-induced disorders: Noted. Status: Chronic (11) CKD stage 3 secondary to diabetes: Noted Status: Chronic (12) Hypotension: Possible combination of hypovolemia with poor oral intake for last 4 days, also with Lasix, lisinopril, flow max. Does not fit sepsis criteria but does have pneumonia, possible sepsis as above. We will also check troponin EKG series. Does have known systolic CHF EF 31%. Assess TTE. Started on norepinephrine in ER after fluid challenge. Continue pressor. If symptoms/signs of CHF, consider addition of dobutamine. Continue monitoring, hemodynamic support in viral ICU. Status: Acute Additional A&P Information Hyponatremia: Corrected sodium is just slightly low at 134. Pseudohyponatremia secondary to hyperglycemia. Noted DM2 history as well as CAD HTN BPH History of bilateral BKA PVD Attestations Medical Necessity Statement*: Admission of over 2 midnights continued for supportive management of multiple metabolic abnormalities, with acute encephalopathy, with hypotension, acute kidney injury, severe hyperkalemia, pneumonia, DKA, COVID-19 infection, CHF, and other comorbidities. Critical Care Time: 65 minutes critical care time spent on assessment management of immediately life-threatening issues including hypotension, acute encephalopathy, kidney injury, DKA, severe hyperkalemia, metabolic acidosis, in the setting of COVID-19 infection, systolic CHF with EF 31% Coding Level of Care Code Acute Email Marketing Executive for [facility] Fwd Exam Comprehensive Diagnoses BLAINE (acute kidney injury) N17.9 Acute encephalopathy G93.40 Hyperkalemia E87.5 DKA (diabetic ketoacidoses) E11.10 Pneumonia J18.9 Chronic systolic CHF (congestive heart failure) I50.22 COPD (chronic obstructive pulmonary disease) J44.9 Metabolic acidosis E87.2 COVID-19 U07.1 Nicotine dependence, cigarettes, with other nicotine-induced disorders F17.218 CKD stage 3 secondary to diabetes E11.22; N18.3 Hypotension I95.9
[2020-07-26 13:17] LABS: Hepatitis C Virus Antibody Non-Reactive (Nonreactive)
[2020-07-26] MEDS: sodium polystyrene sulfonate 15 gm/60 mL Btl 30 GM PO (13:20)
[2020-07-26 13:52] LABS: Glucose Point of Care 307 mg/dL (70-110)
--- NOTE | 2020-07-26 13:54 | PC.NURSE ---
Bedside glucose 400 mg/dl
[2020-07-26 13:57] LABS: ABG PCO2 31.9 mmHg (35-45); Alveolar-Arterial Oxygen Gradi 4.2 mmHg (5-10); Arterial Blood Gas Hematocrit 32.5 % (42-52); Base Excess ABG -9.6 mmol/L (-2.0-2.0); Blood Gas Allen Test Pos; Blood Gas Operator Identificat GD; Blood Gas Sample Site Radial, left; Blood Gas Sample Type Arterial; Carboxyhemoglobin 0.8 %THgb (0.4-20.1); HCO3 ABG 15.8 mmol/L (22-26); HGB O2 Sat 93.9 % (95-100); Ionized Calcium Level - ABG 1.2 mmol/L (1.1-1.4); Methemoglobin 0.9 % (0.4-1.5); Oxygen Device ROOM AIR; Oxygen Saturation ABG 95.6; PO2 ABG 78.1 mmHg (80.0-100.0); Potassium Level - ABG 5.8 mmol/L (3.5-5.0); Total Hemoglobin 10.6 g/dL (14-18)
[2020-07-26] MEDS: piperacillin-tazobactam 3.375 GM in sodium chloride 0.9% (plus) 50 ML IV (14:43)
[2020-07-26] MEDS: dexamethasone 4 mg/mL INJ 6 MG IVP (14:43)
[2020-07-26] MEDS: iodixanol 320 mg/mL 100mL Btl IV (15:20)
[2020-07-26 16:07] LABS: Anion Gap 18.6 (5-19); Calcium 7.7 mg/dL (8.5-10.5); Carbon Dioxide 19 mmol/L (22-29); Chloride 106 mmol/L (98-107); Glomerular Filtration Rate 10.3 mL/min (90-130); Glucose 254 mg/dL (65-115); Magnesium 2.6 mg/dL (1.7-2.3); Phosphorus 4.9 mg/dL (2.5-4.5); Potassium 5.6 mmol/L (3.5-5.1); Sodium 138 mmol/L (136-145)
--- NOTE | 2020-07-26 16:14 | ECG_ITS ---
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 Measurements Intervals [place] Rate: 78 P: 33 IL: 180 QRS: 48 QRSD: 136 T: 104 QT: 424 QTc: 483 Interpretive Statements Possible SINUS RHYTHM INTRAVENTRICULAR CONDUCTION DELAY [130+ ms QRS DURATION] SEPTAL MYOCARDIAL INFARCTION , OF INDETERMINATE AGE [40+ ms Q WAVE IN V1/V2] MARKED ST ELEVATION, CONSIDER LATERAL INJURY [MARKED ST ELEVATION W/O NORMALLY INFLECTED T WAVE IN I/aVL/V5/V6] ACUTE TX Compared to ECG 12/26/2019 11:52:12 Intraventricular conduction delay now present ST (T wave) deviation now present Myocardial infarct finding still present Baseline artifact, need to repeat Electronically Signed On 07-26-2020 20:17:31 PROPAGATION WORKER by Rosa Wiggins M.D. [id number]
[2020-07-26 16:15] LABS: Blood Urea Nitrogen 156 mg/dL (8-23); Osmolality Calculated 346 mOsm/kg (285-295)
--- NOTE | 2020-07-26 16:17 | PC.NURSE ---
Urine output: 700 mL
--- NOTE | 2020-07-26 16:41 | ECG_ITS ---
[facility] ED Test Date: 2020-07-26 Pat Name: Tashi Cole Department: Room: ICU19 Gender: Male Movie Operator: : 1955 Requested By: Srikanth Ham Order Number: [id number] Reading MD: Verónica Xiong M.D. Measurements Intervals [place] Rate: 88 P: 59 NV: 194 QRS: 50 QRSD: 87 T: 99 QT: 379 QTc: 461 Interpretive Statements SINUS RHYTHM ANTEROSEPTAL MYOCARDIAL INFARCTION [40+ ms Q WAVE IN V1-V4], OF INDETERMINATE AGE MARKED ST ELEVATION, CONSIDER INFERIOR INJURY [MARKED ST ELEVATION W/O NORMALLY INFLECTED T WAVE IN II/aVF] ACUTE ID Compared to ECG 07/26/2020 10:36:14 Intraventricular conduction delay no longer present Myocardial infarct finding still present ST (T wave) deviation still present Electronically Signed On 07-27-2020 22:40:34 HYDRAULIC BOOM OPERATOR by Verónica Xiong M.D. [id number]
[2020-07-26 17:20] LABS: Glucose Point of Care 226 mg/dL (70-110)
[2020-07-26] MEDS: fentaNYL 50 mcg/mL INJ 2mL IVP (18:21)
--- NOTE | 2020-07-26 18:26 | XRR_ITS ---
PROCEDURE INFORMATION: Exam: XR Chest, 1 View Exam date and time: 07/26/2020 7:35 PM Age: 64 years old Clinical indication: Device placement; Picc; Patient HX: Central line placement TECHNIQUE: Imaging protocol: XR of the chest Views: 1 view. COMPARISON: CR XR chest 1V portable [id number] 07/26/2020 11:01 AM FINDINGS: Tubes, catheters and devices: Right IJ central line with tip over the distal SVC. Left subclavian central line with tip over the mid SVC. Lungs: Patchy airspace opacity in the peripheral right lung base is slightly increased. The left lung is clear. Pleural space: Unremarkable. No pleural effusion. No pneumothorax. Heart/Mediastinum: Calcified bilateral hilar and mediastinal lymph nodes. Bones/joints: Unremarkable. XR/XR chest 1V portable [id number] IMPRESSION: 1. Central line placement without pneumothorax. 2. Slightly increased atelectasis versus pneumonia in the right base.
--- NOTE | 2020-07-26 18:49 | PM.CONSULT ---
Providers/Reason For Consult Consulting Physican/Specialty*: Srikanth Ham Reason for Consult*: Consult for placement of hemodialysis catheter Attending Physician: Srikanth Ham Primary Care Provider: Hiram Black DO History of Present Illness History of Present Illness Tashi Cole is a 64 year old male who was transferred here from his residential after he was noted to be weak, hypotensive with hyperglycemia. Patient has multiple comorbidities and is a bilateral amputee. He was diagnosed with COVID-19 on 07/17. Patient is arousable but not alert and lab work showed potassium of 7.8 and creatinine of 6 and I was therefore consulted for placement of temporary hemodialysis catheter and central venous catheter for multiple IV infusions Review of Systems General: Reports: ROS unobtainable due to mental status Meds/Allergies Home Medications and Allergies Home Medications Medication Instructions Recorded Confirmed Last Taken Type acetaminophen 650 mg PO Q4-5H PRN 10/19/19 07/26/20 12/24/19 18:00 History aspirin 81 mg PO DAILY 10/19/19 07/26/20 07/26/20 History bisacodyl 10 mg [place] DAILY PRN 10/19/19 07/26/20 12/23/19 08:00 History 10 mg budesonide 2 ml INHALATION BID 10/19/19 07/26/20 07/26/20 History bupropion HCl [Wellbutrin SR] 150 mg PO Q12H 10/19/19 07/26/20 07/26/20 History carvedilol 3.125 mg PO BID 10/19/19 07/26/20 07/26/20 History clopidogrel [Plavix] 75 mg PO DAILY 10/19/19 07/26/20 07/26/20 History insulin lispro [Humalog KwikPen See Rx Instructions .ROUTE .COMPLEX 10/19/19 07/26/20 07/26/20 History Insulin] lisinopril 2.5 mg PO DAILY 10/19/19 07/26/20 07/26/20 History loratadine 10 mg PO DAILY 10/19/19 07/26/20 07/26/20 History magnesium L-lactate [Magtab] 84 mg PO DAILY 10/19/19 07/26/20 07/26/20 History nitroglycerin 0.4 mg SUBLINGUAL Q5M PRN 10/19/19 07/26/20 Unknown History potassium chloride 20 meq PO DAILY 10/19/19 07/26/20 07/26/20 History rosuvastatin [Crestor] 20 mg PO DAILY 10/19/19 07/26/20 07/25/20 History tamsulosin 0.4 mg PO DAILY 10/19/19 07/26/20 07/26/20 History Hair,Skin and Nails 1 tab PO DAILY 12/15/19 07/26/20 07/26/20 History Mucinex DM 1 tab PO Q12H PRN 12/15/19 07/26/20 07/26/20 History magnesium hydroxide [Milk of 5 ml PO DAILY PRN 12/15/19 07/26/20 Unknown History Magnesia] ondansetron HCl [Zofran] See Rx Instructions .ROUTE 12/15/19 07/26/20 07/26/20 History .COMPLEX PRN Lantus U-100 Insulin 10 unit SUBCUT DAILY #0 12/18/19 07/26/20 07/26/20 Rx furosemide 80 mg PO DAILY #30 tab 12/28/19 07/26/20 07/26/20 Rx albuterol sulfate 2.5 mg INHALATION Q4H PRN 03/28/20 07/26/20 Unknown History citalopram 20 mg PO DAILY 07/26/20 07/26/20 07/26/20 History pantoprazole 40 mg PO BID 07/26/20 07/26/20 07/26/20 History polyethylene glycol 3350 [Miralax] 17 g PO DAILY 07/26/20 07/26/20 07/26/20 History sodium phosphates [Enema 118 ml [place] DAILY PRN 07/26/20 07/26/20 Unknown History Disposable] Allergies Allergy/AdvReac Type Severity Reaction Status Date / Time tramadol Allergy ADR-Vomitin Verified 05/02/20 08:52 g Current Medications Current Medications Generic Name Dose Route Start Last Admin Trade Name Freq PRN Reason Stop Dose Admin Dexamethasone 6 mg 07/26/20 13:30 07/26/20 14:43 Decadron IVP 6 mg Q24H OKSANA Administration Fentanyl 50 mcg 07/26/20 17:44 07/26/20 18:21 Sublimaze IVP 50 mcg Q4H PRN Administration SEVERE PAIN Norepinephrine Bitartrate 4 mg 254 mls @ 0 mls/hr 07/26/20 10:15 07/26/20 18:16 / Dextrose IV 2 mcg/min .Q0M OKSANA 7.6 mls/hr Titration Protocol Per Protocol Insulin Human Regular 250 unit 252.5 mls @ 0 mls/hr 07/26/20 11:45 07/26/20 18:16 / Sodium Chloride IV 6 unit/hr .Q0M OKSANA 6.1 mls/hr Titration Protocol Per Protocol Piperacillin Sod/Tazobactam 50 mls @ 12.5 mls/hr 07/26/20 14:00 07/26/20 14:43 Sod 3.375 gm/ Sodium Chloride IV 12.5 mls/hr Q12H OKSANA Administration Protocol PFSH Acute PFSH: Medical History Abnormal cystoscopy Anxiety BPH (benign prostatic hyperplasia) Chronic systolic CHF (congestive heart failure) CKD stage 3 secondary to diabetes COPD (chronic obstructive pulmonary disease) Coronary artery disease Depression Dysphagia History of urinary retention Hypertension Peripheral vascular disease Type 2 diabetes mellitus Urgency incontinence Surgical History Coronary angioplasty status History of carpal tunnel surgery History of hip surgery S/P bilateral BKA (below knee amputation) S/P right coronary artery (RCA) stent placement Family History Other CAD (coronary artery disease) Diabetes Social History Smoking and tobacco status: current every day smoker cigarettes Packs smoked per day: 0.5 Years cigarettes smoked: 59 Second hand smoke exposure: Yes Alcohol intake: never Lives independently: No Housing: [facility] Marital status: Current occupational status: retired and disabled History of recent travel: No Vitals/I&O/Wt Last Vital Signs Temp 96.8 F L 07/26/20 16:14 Pulse 78 07/26/20 16:18 Resp 14 07/26/20 16:18 BP 118/67 07/26/20 16:18 Pulse Ox 97 07/26/20 18:21 07/26/20 07/26/20 07/26/20 06:59 14:59 22:59 Intake Total 34.453 / 187.656 153.203 / 187.656 Balance 34.453 / 187.656 153.203 / 187.656 Weight last 48 hrs Weight 170 lb Physical Exam Narrative: EXAM NARRATIVE: HEENT: Normocephalic Eye: Sclera /conjunctiva normal Abdomen: Soft to palpation Neurological: Arousable but not alert Skin: Intact, no lesions appreciated on gross exam Urinary Catheter Management^: Mejia: Cath Placed During This Visit: no Reason for Continuing Indwelling Catheter: Other Data Micro: Micro: Microbiology 07/26/20 15:31 Blood Culture - Pr eliminary Blood SPECIMEN COLLE BRE 07/26/20 10:30 Blood Culture - Pr eliminary Blood SPECIMEN [facility] A&P Assessment and plan (1) Hypotension: Plan for central line placement in the left subclavian vein Status: Acute (2) BLAINE (acute kidney injury): Plan for placement of temporary hemodialysis catheter in the right internal jugular vein Procedures discussed with patient's daughter who consented Status: Acute Coding Level of Care Code Acute Process Controller for Pepe [facility]farland Diagnoses Hypotension I95.9 BLAINE (acute kidney injury) N17.9
--- NOTE | 2020-07-26 18:57 | PM.ACPR ---
Procedure/Consent Time out: Time Out Performed: Yes Consent: Consent for Procedure: Consent obtained from other (indicate) (Daughter) Procedure Narrative: Preoperative diagnosis: Poor IV access requiring central venous access for IV infusions Preoperative diagnosis: Poor IV access requiring central venous access for IV infusions Procedure: Placement of 7 Vincentian triple-lumen catheter in the left subclavian vein Anesthesia: Local Surgeon: Dr. Cruz Description of procedure: The patient's left chest was prepped and draped in a sterile manner. 10 mL of 1% lidocaine was infiltrated under the subclavian vein on the right side at the site of planned entry. An introducer needle was used to access the right subclavian vein, a guidewire passed through the introducer needle and the needle was removed. Using 11 blade, a skin incision was made at the guidewire entry site. Dilator was passed over the guidewire and a 7 Vincentian triple-lumen central venous catheter was passed over the guidewire and the guidewire was removed. The catheter was sutured to the skin at 15 cm. All 3 ports terence blood and flushed easily. Postprocedure chest x-ray is pending Acute Procedures Epistaxis Control: Time out performed: Yes
--- NOTE | 2020-07-26 18:58 | PM.ACPR ---
Procedure/Consent Time out: Time Out Performed: Yes Consent: Consent for Procedure: Consent obtained from other (indicate) (Daughter) Procedure Narrative: Preoperative diagnosis: Acute renal failure requiring emergent dialysis Postoperative diagnosis: Same Procedure: Placement of Mahurkar catheter in the right internal jugular vein under ultrasound guidance to access the right internal jugular vein Surgeon: Anthony Anesthesia: Local Description of procedure: The patient's right neck and chest was prepped and draped in a sterile manner. An ultrasound of the right internal jugular vein revealed patent veins with no evidence of thrombus. 5 mL of 1% lidocaine was infiltrated at the site of planned entry, an introducer needle was used to access the right internal jugular vein under ultrasound guidance. Guidewire was passed through the introducer needle and the introducer needle was removed. Serial dilators were passed over the guidewire after the skin incision was extended using 11 blade and Mahurkar catheter was then passed over the guidewire and the guidewire was removed. The catheter was sutured to the skin using 2-0 Ethilon suture. Sterile dressings were applied. Postop procedure chest x-ray is pending. Acute Procedures Epistaxis Control: Time out performed: Yes
--- NOTE | 2020-07-26 19:18 | PC.NURSE ---
wasted 50 mcg of Fentanyl with witness Karol Lopez RN
--- NOTE | 2020-07-26 19:30 | PC.NURSE ---
Patient's chest x-ray confirmed placement of left temp dialysis catheter et right subclavian central line per Dr. Cruz.
--- NOTE | 2020-07-26 19:53 | PC.NURSE ---
Central Line and dialysis cath inserted per Dr Bright Cruz. Placement confirmed per chest xray.
[2020-07-26] MEDS: pantoprazole 40 mg SDV IVP (20:11)
[2020-07-26] MEDS: enoxaparin 40 mg/0.4 mL Syringe SUBCUT (20:11)
[2020-07-26 20:19] LABS: Glucose Point of Care 167 mg/dL (70-110)
[2020-07-26] MEDS: dextrose 5%-sod chloride 0.45% 1,000 ML 100 ML IV (20:38)
--- NOTE | 2020-07-26 20:41 | ECG_ITS ---
[facility] ED Test Date: 2020-07-27 Pat Name: Tashi Cole Department: Room: ICU19 Gender: Male [employer] Library Director: DARIEN : 1955 Requested By: Srikanth Ham Order Number: [id number] Rohini MD: Verónica Xiong M.D. Measurements Intervals [place] Rate: 94 P: 71 IN: 168 QRS: -4 QRSD: 102 T: 0 QT: 202 QTc: 253 Interpretive Statements SINUS RHYTHM INFERIOR MYOCARDIAL INFARCTION [40+ ms Q WAVE AND/OR ST/T ABNORMALITY IN II/aVF], OF INDETERMINATE AGE ST ELEVATION, CONSIDER ANTERIOR INJURY [MARKED ST ELEVATION W/O NORMALLY INFLECTED T WAVE IN V2-V5] ACUTE SD Compared to ECG 07/26/2020 17:33:20 No significant changes Electronically Signed On 07-30-2020 11:42:43 ENGINEERING LABORATORY TECHNICIAN by Verónica Xiong M.D. [id number]
[2020-07-26 20:59] LABS: Glucose Point of Care 106 mg/dL (70-110)
[2020-07-26 21:40] LABS: Alanine Aminotransferase 29 U/L (0-41); Albumin Level 2.8 g/dL (3.5-5.2); Alkaline Phosphatase 170 IU/L (40-130); Anion Gap 13.1 (5-19); Aspartate Amino Transferase 24 U/L (0-40); Calcium 7.8 mg/dL (8.5-10.5); Carbon Dioxide 26 mmol/L (22-29); Chloride 103 mmol/L (98-107); Creatine Phosphokinase 71 U/L (39-308); Glomerular Filtration Rate 21.2 mL/min (90-130); Glucose 102 mg/dL (65-115); Osmolality Calculated 313 mOsm/kg (285-295); Potassium 4.1 mmol/L (3.5-5.1); Sodium 138 mmol/L (136-145); Total Bilirubin 0.2 mg/dL (0.15-1.2); Total Protein 5.8 g/dL (6.6-8.7)
[2020-07-26 21:43] LABS: Troponin(5th) Baseline 76 ng/L (0-15)
[2020-07-26 21:45] LABS: Blood Urea Nitrogen 87 mg/dL (8-23)
[2020-07-26 22:15] LABS: Urine Appearance Cloudy (CLEAR); Urine Color Yellow (Yellow)
[2020-07-26 22:15] LABS: Glucose Point of Care 132 mg/dL (70-110)
[2020-07-26 22:16] LABS: Specific Gravity, Urine 1.015 (1.005-1.030); pH Urine 5 (5-7)
[2020-07-26 22:17] LABS: Blood Urine 2+ (Negative); Glucose Urine UA Norm (Normal); Ketones Urine Negative (Negative); Protein Urine Neg (Negative)
[2020-07-26 22:29] LABS: Add Urine Microscopic? YES; Bilirubin Urine Neg (Negative); Leukocyte Esterase Urine 1+ (Negative); Nitrate Urine Negative (Negative); Urobilinogen Urine Norm (Negative)
[2020-07-26 22:34] LABS: Bacteria Urine 2+ /hpf; RBC Urine 25-40 /hpf (0-2); Squamous Epithelial Cell Urine 0-4 /hpf (0-5); WBC Urine 15-25 /hpf (0-5)
[2020-07-26 22:35] LABS: Add Urine Culture? Yes
[2020-07-26 23:54] LABS: Glucose Point of Care 131 mg/dL (70-110)
[2020-07-27] VITALS (69 sets, daily range): BP systolic 84–152; BP diastolic 40–113; PULSE 74–110; RESP 10–34; TEMP 36.8–37.1; O2SAT 91–100
[2020-07-27 00:18] LABS: Hepatitis B Surface AB 3.5 (0-8.5); Hepatitis B Surface Antigen Non-Reactive (Nonreactive); Hepatitis C Virus Antibody Non-Reactive (Nonreactive)
[2020-07-27 00:36] LABS: Troponin 5 2HR 77.61 ng/L (0-15); Troponin 5 2HR Delta 1.61 ABS# (0-10)
[2020-07-27 00:50] LABS: Glucose Point of Care 158 mg/dL (70-110)
[2020-07-27] MEDS: piperacillin-tazobactam 3.375 GM in sodium chloride 0.9% (plus) 50 ML IV ×2 (01:36→13:02)
--- NOTE | 2020-07-27 02:40 | PC.NURSE ---
Holding NS dose on NOV. Patient is currently receiving D5 1/2 NS for IVFs. He is also on an insulin gtt et fluids are ordered for insulin gtt protocol.
--- NOTE | 2020-07-27 02:48 | PC.NURSE ---
0200 Invasive line assessment: Upon assessing patient's left subclavian central line, there was a large amount of blood that was leaking from around the site. The dressing was taken down, several large blood clots were removed from site et a new dressing was applied. A 1000 ml NS bag was also applied to the site to help with the leaking at the site. Will continue to monitor.
[2020-07-27 03:14] LABS: Glucose Point of Care 232 mg/dL (70-110)
[2020-07-27 03:14] LABS: Glucose Point of Care 201 mg/dL (70-110)
[2020-07-27] MEDS: pantoprazole 40 mg SDV IVP ×2 (03:15→15:45)
[2020-07-27 04:39] LABS: Glucose Point of Care 297 mg/dL (70-110)
[2020-07-27 06:10] LABS: Glucose Point of Care 224 mg/dL (70-110)
[2020-07-27 06:10] LABS: Glucose Point of Care 186 mg/dL (70-110)
[2020-07-27 06:22] LABS: Basophils % 0.1 %; Hematocrit 31.2 % (42.0-52.0); Hemoglobin 10.1 g/dL (11.7-16.6); Lymphocytes # 0.6 10^3/uL (0.8-4.8); Lymphocytes % 6.5 %; Mean Corpuscular HGB Conc 32.4 g/dL (30.0-36.0); Mean Corpuscular Hemoglobin 28.1 pg (28.0-34.0); Mean Corpuscular Volume 86.9 fL (80-94); Mean Platelet Volume 10.6 fL (7.4-10.4); Monocytes # 0.5 10^3/uL (0.2-0.9); Monocytes % 5.5 %; Neutrophils # 8.13 10^3/uL (1.8-7.7); Neutrophils % 86.7 %; Nucleated Red Blood Cells % 0 %; Platelet Count 269 10^3/cmm (130-400); Red Blood Count 3.59 10^6/uL (4.1-5.3); Red Cell Distribution Width 15.9 % (12.1-15.1); White Blood Count 9.4 10^3/uL (4.0-10.0)
[2020-07-27] MEDS: dextrose 5%-sod chloride 0.45% 1,000 ML 100 ML IV (06:28)
[2020-07-27 06:41] LABS: Alanine Aminotransferase 26 U/L (0-41); Albumin Level 2.6 g/dL (3.5-5.2); Alkaline Phosphatase 150 IU/L (40-130); Anion Gap 17.8 (5-19); Aspartate Amino Transferase 23 U/L (0-40); Blood Urea Nitrogen 75 mg/dL (8-23); Carbon Dioxide 23 mmol/L (22-29); Chloride 102 mmol/L (98-107); Globulin 2.8 g/dL (1.3-4.6); Glomerular Filtration Rate 22.9 mL/min (90-130); Glucose 195 mg/dL (65-115); Osmolality Calculated 316 mOsm/kg (285-295); Phosphorus 3.1 mg/dL (2.5-4.5); Potassium 3.8 mmol/L (3.5-5.1); Sodium 139 mmol/L (136-145); Total Bilirubin 0.2 mg/dL (0.15-1.2); Total Protein 5.4 g/dL (6.6-8.7)
[2020-07-27 06:49] LABS: Calcium 7.7 mg/dL (8.5-10.5)
--- NOTE | 2020-07-27 06:50 | PM.PN ---
Subjective Subjective: Interval history: seen in ICU. more awake. not following commands. weak. bleeding by dialysis catheter site. not answering questions. Medications: Reviewed: Yes Medication Review Details: Current Medications Albuterol Sulfate (Albuterol) 2.5 mg INHALATION Q4H PRN PRN Reason: Shortness Of Breath Albuterol/Ipratropium (Combivent Respimat) 1 puff INHALATION QID.RESPIRATORY OKSANA Aspirin (Aspirin) 300 mg SC DAILY [place] Dexamethasone (Decadron) 6 mg IVP Q24H [facility] Last Admin: 07/26/20 14:43 Dose: 6 mg Documented by: Dextrose (D50w) 25 ml IVP ONCE PRN; Protocol PRN Reason: hypoglycemia protocol Dextrose (D50w) 50 ml IVP PRN PRN; Protocol PRN Reason: hypoglycemia protocol Enoxaparin Sodium (Lovenox) 40 mg SUBCUT Q24H [facility] Last Admin: 07/26/20 20:11 Dose: 40 mg Documented by: Fentanyl (Sublimaze) 50 mcg IVP Q4H PRN PRN Reason: SEVERE PAIN Last Admin: 07/26/20 18:21 Dose: 50 mcg Documented by: Glucagon (Glucagen) 1 mg IM ONCE PRN; Protocol PRN Reason: Adult Acute Hypoglycemia Prot Norepinephrine Bitartrate 4 mg (/ Dextrose) 254 mls @ 0 mls/hr IV .Q0M [facility]; Protocol Last Titration: 07/26/20 22:00 Dose: 0 mcg/min, 0 mls/hr Documented by: Dextrose (D5w) 500 mls @ 100 mls/hr IV ONCE PRN; Protocol PRN Reason: Adult Acute Hypoglycemia Prot Insulin Human Regular 250 unit (/ Sodium Chloride) 252.5 mls @ 0 mls/hr IV .Q0M [facility]; Protocol Last Titration: 07/26/20 18:16 Dose: 6 unit/hr, 6.1 mls/hr Documented by: Piperacillin Sod/Tazobactam (Sod 3.375 gm/ Sodium Chloride) 50 mls @ 12.5 mls/hr IV Q12H [facility]; Protocol Last Admin: 07/27/20 01:36 Dose: 12.5 mls/hr Documented by: Sodium Chloride (Sodium Chloride 0.9%) 1,000 mls @ 200 mls/hr IV .Q5H [facility] Last Admin: 07/27/20 02:40 Dose: Not Given Documented by: Dextrose/Sodium Chloride (Dextrose 5%-Sod Chloride 0.45%) 1,000 mls @ 100 mls/hr IV .Q10H [facility] Last Admin: 07/27/20 06:28 Dose: 100 mls/hr Documented by: Ondansetron HCl (Zofran) 4 mg IVP Q6H PRN PRN Reason: NAUSEA AND VOMITING Pantoprazole Sodium (Protonix) 40 mg IVP Q12H [facility] Last Admin: 07/27/20 03:15 Dose: 40 mg Documented by: Fluticasone/Salmeterol (Advair Diskus 250-50) 1 puff INHALATION BID.RESPIRATORY OKSANA Vitals/I&O/Wt Last Vital Signs Temp 98.2 F 07/27/20 04:00 Pulse 86 07/27/20 04:00 Resp 21 H 07/27/20 04:00 BP 118/63 07/27/20 04:00 Pulse Ox 97 07/27/20 04:00 07/26/20 07/26/20 07/27/20 14:59 22:59 06:59 Intake Total 34.453 / 34.453 1227.776 / 1262.229 983.333 / 2245.562 Output Total 1550 / 1550 1350 / 2900 Balance 34.453 / 34.453 -322.224 / -287.771 -366.667 / -654.438 Weight last 48 hrs Weight 67.449 kg Weight 77.111 kg Physical Exam Narrative: EXAM NARRATIVE: altered ms. minimally responsive in bed, room air, comfortable- BP now 94/59- insulin drip, d5 1/2 ns heent- nc/at neck supple lungs b/l crackles/ ronchi heart reg, no rub abd soft, nt, nd ext b/l bka, no edema neuro- minimally responsive to pain Urinary Catheter Management^: Mejia: Cath Placed During This Visit: no Reason for Continuing Indwelling Catheter: Accurate Measurement of Urinary Output in Critically Ill Patients Data : 07/27/20 03:00 07/27/20 03:00 Micro: Microbiology 07/26/20 14:07 Bacterial Antigens - Final Urine,Voided 07/26/20 14:07 Legionella Urinary Antigen - Final Urine Catheterized 07/26/20 15:31 Blood Culture - Preliminary Blood SPECIMEN COLLECTED 07/26/20 10:30 Blood Culture - Preliminary Blood SPECIMEN COLLECTED A&P Additional A&P Information 64 yr old man CHF- chronic systolic, COPD, PVD s/p b/l BKA, ICD, htn, hyperlipidemia 1. septic shock- agree w/ treat covid-19 and bacterial pna -renal dose meds -fluid bolus as having hypotension and post- BLAINE diuresis 2. inc agma likely from BLAINE and DKA -urine ketones was positive c/w DKA - lactate only 1.4 -improved w/ HD , iinsulin drip and ivf 3/ BLAINE- likely prerenal vs atn- was on lisinopril and i am concerned that he was on a phos based enema -normal renal us -ivf -normal ck -as he was hyperkalemic and had a CTA, we performed dialysis once- now improving -repeat labs later today, if stable and good uop- then d/c dialysis catheter -if okay w/ nurses, change catheter to condom catheter 4. hyperkalemia- improved off of lisinopril. -s/p HD and correction of DKA 5. DKA normalized- consider change to lantus and novalog insulin per medicine 6. anemia per medicine 7. pt needs nutrition, not just d5 1/2 ns 8. elevated trop likely from ischemia -known chronic systolic CHF 9. copd/ lung disease per pulm Attestations Medical Necessity Statement*: pna, covid-19, sars-2, blaine, dka, AMS Time Spent in Patient Care: 16 - 35 minutes Coding Level of Care Code Acute Ship'S Officer for Pepe Mcfarland
--- NOTE | 2020-07-27 07:00 | USCV_ITS ---
Tashi Cole Age: 64 Gender: M : 1955 Exam Date: 07/27/2020 06:16 Ordering Phys: Srikanth Ham MD Technologist: Nadya Mclean Exam Location[place] [facility] [place] Indication: CHF HYPOTENSION COVID ICU BP: 105 / 59 HR: 82 Rhythm: Sinus Technical Quality: MEASUREMENTS (Male / Female) Normal Values 2D ECHO LV Diastolic Diameter PLAX 6.0 cm 4.2 - 5.9 / 3.9 - 5.3 cm LV Systolic Diameter PLAX 5.2 cm LV Chamber Size 3.6 cm IVS Diastolic Thickness 0.9 cm 0.6 - 1.0 / 0.6 - 0.9 cm IVS Systolic Thickness 0.9 cm LVPW Diastolic Thickness 1.3 cm 0.6 - 1.0 / 0.6 - 0.9 cm LVPW Systolic Thickness 1.4 cm RV Chamber Size 2.4 cm LVOT Diameter 2.0 cm LV Ejection Fraction 2D Teich 27.4 % LV Ejection Fraction MOD 2C 32.2 % LV Ejection Fraction 2C AL 32.2 % LA Diameter 3.5 cm LA Width 3.9 cm LA Height 4.3 cm RA Width 3.0 cm RA Height 3.2 cm M-MODE LV Diastolic Diameter MM 4.7 cm 4.2 - 5.9 / 3.9 - 5.3 cm LV Systolic Diameter MM 3.5 cm LV Ejection Fraction MM Teich 52.6 % IVS Diastolic Thickness MM 1.1 cm 0.6 - 1.0 / 0.6 - 0.9 cm IVS Systolic Thickness MM 1.6 cm LVPW Diastolic Thickness MM 1.6 cm 0.6 - 1.0 / 0.6 - 0.9 cm LVPW Systolic Thickness MM 1.9 cm RV Diastolic Diameter MM 1.2 cm Aortic Annulus Diameter 3.8 cm LA Ao Ratio MM 1.0 MV E Point Septal Separation 2.6 cm DOPPLER AV Peak Velocity 176.0 cm/s LVOT Peak Velocity 67.0 cm/s AV Area Cont Eq vti 1.4 cm squared AV Area Cont Eq pk 1.2 cm squared MV Area PHT 16.9 cm squared Mitral E to A Ratio 1.8 MV E' Velocity 35.5 cm/s Mitral E to MV E' Ratio 14.1 Mitral E to LV E' Lateral Ratio 13.8 Mitral E to LV E' Septal Ratio 14.7 TR Peak Velocity 140.8 cm/s TR Peak Gradient 7.9 mmHg TR Mean Velocity 86.0 cm/s TR Mean Gradient 3.4 mmHg TR Velocity Time Integral 26.1 cm TV Peak E Velocity 74.0 cm/s Right Atrial Pressure 3.0 mmHg Pulmonary Artery Systolic Pressu 10.9 mmHg PV Peak Velocity 72.0 cm/s RV Acceleration Time 0.1 s RV Ejection Time 0.3 s RV AcT/ET 0.4 FINDINGS Left Ventricle Normal left ventricular size and wall thickness. LV systolic function is severely reduced. Regional wall motion abnormalities cannot be assessed because of limited visualization. LVEF is 30 to 35%. Normal left ventricular wall thickness. Diastolic function is abnormal. Right Ventricle The right ventricle is not well visualized Right Atrium The right atrium is not well visualized Left Atrium The left atrium is normal in size. Mitral Valve Thickened mitral valve. Aortic Valve Not well visualized. However no evidence of aortic stenosis or regurgitation. Tricuspid Valve Not well-visualized. Pulmonic Valve Not well-visualized. Pericardium Normal pericardium without effusion. Aorta Normal ascending aorta dimension. CONCLUSIONS This is a limited quality echocardiogram. LV systolic function is severely reduced with EF of 30 to 35%. Regional wall motion abnormalities cannot be assessed because of limited visualization. Diastolic function is abnormal. Valvular structures are not completely assessed because of limited echocardiogram. Compared to prior study from 12/26/2019, no significant changes are noted. Greg Strong MD (Electronically Signed) Final Date: 27 July 2020 09:25 S
[2020-07-27 07:18] LABS: Glucose Point of Care 153 mg/dL (70-110)
[2020-07-27] MEDS: sodium chloride 0.9% (100 ml) 0 ML 999 ML IV (07:55)
[2020-07-27 08:01] LABS: Troponin 5 6HR 75.58 ng/L (0-15)
[2020-07-27 08:03] LABS: Troponin 5 6HR Delta -0.42 ng/L (0-12)
[2020-07-27 08:12] LABS: Glucose Point of Care 155 mg/dL (70-110)
[2020-07-27] MEDS: sodium chloride 0.9% 1,000 ML 200 ML IV ×2 (08:29→13:03)
[2020-07-27] MEDS: aspirin 300 mg Supp PR (09:09)
[2020-07-27] MEDS: insulin glargine 100 units/1 mL 10 UNIT SUBCUT (09:11)
[2020-07-27 09:24] LABS: Glucose Point of Care 181 mg/dL (70-110)
[2020-07-27 11:24] LABS: Vancomycin Random 9.5 ug/mL (20.0-40.0)
[2020-07-27 11:39] LABS: Glucose Point of Care 123 mg/dL (70-110)
[2020-07-27] MEDS: dexamethasone 4 mg/mL INJ 6 MG IVP (13:02)
[2020-07-27] MEDS: dextrose 5 % 500 ML IV (13:43)
--- NOTE | 2020-07-27 13:44 | PC.NURSE ---
IVF changed to D5 at 50mL/hr during NS bolus per verbal order from Dr. Salazar.
--- NOTE | 2020-07-27 13:53 | P.PN_ITS ---
Subjective Subjective: Interval history: He is more awake this morning. Responds to his name. Turns head to voice. Denies any pain or discomfort. Remembers being in the [facility]. Gets the year incorrect. Easily falls back asleep. Reports he is not hungry, but could consider trying some broth. Vitals/I&O/Wt Last Vital Signs Temp 98.2 F 07/27/20 04:00 Pulse 93 07/27/20 13:45 Resp 20 H 07/27/20 13:45 BP 152/72 07/27/20 13:45 Pulse Ox 96 07/27/20 13:45 07/26/20 07/27/20 07/27/20 22:59 06:59 14:59 Intake Total 1240.099 / 7676.054 9623.833 / 2329.385 934.816 / 934.816 Output Total 1550 / 1550 1350 / 2900 1250 / 1250 Balance -309.901 / -275.448 -295.167 / -570.615 -315.184 / -315.184 Weight last 48 hrs Weight 67.449 kg Weight 77.111 kg Physical Exam Const: COMMON NORMALS: no acute distress EXAM LIMITATIONS: altered mental status GENERAL APPEARANCE: lethargic (More awake) ORIENTATION/CONSCIOUSNESS: Yes lethargic (More awake) HENMT: COMMON NORMALS: oropharynx normal Neck/C-Spine: COMMON NORMALS: no JVD Resp: COMMON NORMALS: normal respiratory effort AUSCULTATION: diminished lung sounds Cardio: COMMON NORMALS: no JVD, regular rhythm, S1 normal heart sound present, S2 normal heart sound present and No murmurs present (Cardio) RHYTHM: regular rhythm HEART SOUNDS: S1 normal heart sound present and S2 normal heart sound present GI: COMMON NORMALS: Normal to inspection, nondistended, normoactive bowel sounds present, Soft to palpation and non-tender PALPATION: Yes Soft to palpation Extremity: COMMON NORMALS: no joint enlargement and no pedal edema NARRATIVE EXTREMITY EXAM: Bilateral BKA. Some mild patchy erythema/old pressure ulcers? Noted on bilateral stumps. No open ulcers. No deep tissue injury. Neuro: COMMON NORMALS: moves all extremities SENSORIUM/ORIENTATION: Yes lethargic (More awake) Skin: COMMON NORMALS: no rashes or lesions noted GENERAL SKIN EXAM: no rashes or lesions noted Urinary Catheter Management^: Mejia: Cath Placed During This Visit: no Reason for Continuing Indwelling Catheter: Accurate Measurement of Urinary Output in Critically Ill Patients Data : 07/27/20 03:00 07/27/20 03:00 Micro: Microbiology 07/26/20 10:30 Blood Culture - Preliminary Blood NEGATIVE TO DATE 07/26/20 14:07 Bacterial Antigens - Final Urine,Voided 07/26/20 14:07 Legionella Urinary Antigen - Final Urine Catheterized 07/26/20 15:31 Blood Culture - Preliminary Blood SPECIMEN COLLECTED A&P Assessment and plan (1) BLAINE (acute kidney injury): Hemodialysis cath replaced last night and dialysis. Potassium is better. Renal function is improving. Mental status improving. Reassess renal function. Continue to monitor I&O. Volume status. Small amount of oozing noted around the dialysis catheter. This is being monitored. Pressure applied. Plavix have been on hold. Only aspirin continued. Prophylactic Lovenox changed to subcutaneous heparin. Appears likely is not going to need additional dialysis. Blood pressures are better. Had been weaned off pressor overnight. Continue to monitor. Urinary studies have been ordered. Noted normal renal ultrasound. Urine distended bladder. Mejia catheter. Status: Acute (2) Acute encephalopathy: Improving. He is more awake, however, does not get the date, likely falls back asleep easily. Concern asked breast regarding initiation of oral diet currently. Speech therapy assessment. If does well, he said to not have much appetite, but would try some clears. Delirium secondary to acute encephalopathy due to a number of metabolic abnormalities including acute kidney injury, possible uremia, metabolic acidosis, DKA, infection with pneumonia, also chronic congestive heart failure with low EF. Status: Acute (3) Hyperkalemia: Resolved. On admission received received treatment with calcium gluconate, sling, Kayexalate underwent HD. Hold lisinopril. Discontinue potassium supplement. Status: Acute (4) DKA (diabetic ketoacidoses): Transitioned to subcutaneous insulin. Blood glucose is normal. For now maintain low rate D10 at 20 mL to avoid anemia while undergoing assessment for safety and oral take. Mental status is improving. Status: Acute (5) Pneumonia: Continue Zosyn. Maintain aspiration precautions. This morning was doing well on room air. Negative bacterial antigens. Negative blood culture so far. Continue Decadron. Right lower lobe noted patchy infiltrate. Possible sepsis, although does not fit sepsis criteria. Does have COVID-19, possible COVID-19 pneumonia. Right lower lobe distribution, AMS, is also concerning for aspiration pneumonia. Received Levaquin and vancomycin in ER. Due to poor renal function is not a candidate continue remdesivir. We will continue Decadron. Collect sputum cultures if possible. Status: Acute (6) Chronic systolic CHF (congestive heart failure): Chronic systolic congestive heart failure. EF 31%. Prior to admit on as needed oxygen. Oxygen at night. Current echocardiogram with EF 30-35%. Regional wall motion abnormality could not be assessed. Abnormal diastolic function. Troponin series with moderate elevation 75-77, but without peak. Suspected and ischemia due to acute illness. Denies any chest pain. Normally on 80 mg IV Lasix daily. Hold off additional fluid infusions. Attempt to resume oral intake. Lasix held for now. Mejia placed for accurate EDWIN. Check troponin series. Status: Acute (7) COPD (chronic obstructive pulmonary disease): Continue albuterol. Budesonide. Oxygen support. Nightly BiPAP. Possible COPD exacerbation. Diminished lung sounds. Antibiotic as above. Also steroids as above. Status: Chronic (8) Metabolic acidosis: Multifactorial, including DKA, kidney injury, hypotension, chronic systolic CHF with hypoperfusion, although lactic acid is normal. Status: Acute (9) COVID-19: He is on minimal oxygen. Afebrile. Last 4 days noted poor oral intake, not very active, mostly staying in bed. He unfortunately is not able to give her review of systems. Otherwise he is not clear whether symptoms in large part triggered by COVID-19 infection. D-dimer noted elevated 2.16. CRP elevated at 77.6. He has been on prophylactic 40 mg daily Lovenox. At this time not candidate for remdesivir due to poor renal function. Started on Decadron. Oxygen support. Nightly he is on BiPAP. Neb treatments. Per discussion with his daughter and with fpc CODE STATUS is DNR/DNI. Daughter who is power of ip technology transactions attorney states he would be okay to go to ICU and receive treatment there with pressors, repeat hemodialysis. Status: Acute (10) Nicotine dependence, cigarettes, with other nicotine-induced disorders: Noted. Status: Chronic (11) CKD stage 3 secondary to diabetes: Noted Status: Chronic (12) Hypotension: Resolved. Hold off additional continuous infusions apart from a low rate D10 to avoid type glycemia. Monitor volume status, oxygenation, I&O, renal function. Possible combination of hypovolemia with poor oral intake for last 4 days, also with Lasix, lisinopril, flomax. Does not fit sepsis criteria but does have pneumonia, possible sepsis as above. Troponin with 100 elevation. No chest pain. Suspect demand ischemia. Does have known systolic CHF EF 31% this appears to be unchanged on [place] echo. Asse ss TTE. Continue monitoring in viral ICU. Status: Acute Additional A&P Information Hyponatremia: Resolved DM2 CAD HTN BPH History of bilateral BKA PVD Attestations Medical Necessity Statement*: Continue admission for assessment of management of acute encephalopathy, DKA, acute kidney injury, COVID-19 infection, possible aspiration pneumonia in the setting of CHF, CAD, chronic kidney disease and a number of comorbidities. Coding Level of Care Code Acute Suction Drum Drier Operator for [facility] Fwd Diagnoses BLAINE (acute kidney injury) N17.9 Acute encephalopathy G93.40 Hyperkalemia E87.5 DKA (diabetic ketoacidoses) E11.10 Pneumonia J18.9 Chronic systolic CHF (congestive heart failure) I50.22 COPD (chronic obstructive pulmonary disease) J44.9 Metabolic acidosis E87.2 COVID-19 U07.1 Nicotine dependence, cigarettes, with other nicotine-induced disorders F17.218 CKD stage 3 secondary to diabetes E11.22; N18.3 Hypotension I95.9
[2020-07-27] MEDS: dextrose 10% 1,000 ML 20 ML IV (15:01)
[2020-07-27 15:11] LABS: Alanine Aminotransferase 24 U/L (0-41); Albumin Level 2.5 g/dL (3.5-5.2); Alkaline Phosphatase 140 IU/L (40-130); Anion Gap 14.5 (5-19); Aspartate Amino Transferase 22 U/L (0-40); Blood Urea Nitrogen 61 mg/dL (8-23); Calcium 7.4 mg/dL (8.5-10.5); Carbon Dioxide 23 mmol/L (22-29); Chloride 106 mmol/L (98-107); Globulin 2.7 g/dL (1.3-4.6); Glomerular Filtration Rate 30.3 mL/min (90-130); Glucose 130 mg/dL (65-115); Osmolality Calculated 309 mOsm/kg (285-295); Potassium 3.5 mmol/L (3.5-5.1); Sodium 140 mmol/L (136-145); Total Bilirubin 0.2 mg/dL (0.15-1.2); Total Protein 5.2 g/dL (6.6-8.7)
[2020-07-27 16:44] LABS: Glucose Point of Care 294 mg/dL (70-110)
[2020-07-27] MEDS: heparin 5,000 unit/mL INJ 1 mL 5000 UNIT SUBCUT (20:52)
[2020-07-27 21:11] LABS: Glucose Point of Care 286 mg/dL (70-110)
[2020-07-28] VITALS (18 sets, daily range): BP systolic 111–146; BP diastolic 64–90; PULSE 86–100; RESP 10–24; TEMP 36.8–37.2; O2SAT 92–100
[2020-07-28] MEDS: piperacillin-tazobactam 3.375 GM in sodium chloride 0.9% (plus) 50 ML IV ×2 (02:23→11:15)
[2020-07-28 03:12] LABS: Basophils % 0.1 %; Hematocrit 31.2 % (42.0-52.0); Hemoglobin 10.5 g/dL (11.7-16.6); Lymphocytes # 0.8 10^3/uL (0.8-4.8); Lymphocytes % 9.8 %; Mean Corpuscular HGB Conc 33.7 g/dL (30.0-36.0); Mean Corpuscular Hemoglobin 28.5 pg (28.0-34.0); Mean Corpuscular Volume 84.6 fL (80-94); Mean Platelet Volume 10.1 fL (7.4-10.4); Monocytes # 0.8 10^3/uL (0.2-0.9); Monocytes % 10.4 %; Neutrophils # 6.08 10^3/uL (1.8-7.7); Neutrophils % 78.3 %; Nucleated Red Blood Cells % 0 %; Platelet Count 277 10^3/cmm (130-400); Red Blood Count 3.69 10^6/uL (4.1-5.3); White Blood Count 7.8 10^3/uL (4.0-10.0)
[2020-07-28 03:28] LABS: Alanine Aminotransferase 23 U/L (0-41); Albumin Level 2.7 g/dL (3.5-5.2); Alkaline Phosphatase 151 IU/L (40-130); Anion Gap 12.7 (5-19); Aspartate Amino Transferase 19 U/L (0-40); Blood Urea Nitrogen 48 mg/dL (8-23); Calcium 8.1 mg/dL (8.5-10.5); Carbon Dioxide 27 mmol/L (22-29); Chloride 104 mmol/L (98-107); Globulin 2.9 g/dL (1.3-4.6); Glomerular Filtration Rate 30.3 mL/min (90-130); Glucose 216 mg/dL (65-115); Magnesium 1.8 mg/dL (1.7-2.3); Osmolality Calculated 309 mOsm/kg (285-295); Potassium 3.7 mmol/L (3.5-5.1); Sodium 140 mmol/L (136-145); Total Bilirubin 0.2 mg/dL (0.15-1.2); Total Protein 5.6 g/dL (6.6-8.7)
[2020-07-28 03:31] LABS: C Reactive Protein 47.3 mg/L (0.0-4.9)
[2020-07-28] MEDS: pantoprazole 40 mg SDV IVP ×2 (04:00→15:50)
[2020-07-28] MEDS: heparin 5,000 unit/mL INJ 1 mL 5000 UNIT SUBCUT ×2 (04:00→11:16)
--- NOTE | 2020-07-28 06:00 | PC.NURSE ---
Tele ag service manager called into see patient.Updated on patient condition. New orders noted et implemented. Will continue to monitor.
--- NOTE | 2020-07-28 06:31 | PM.PN ---
Subjective Subjective: Interval history: feels better. comfortable on room air. denies complaints. Medications: Reviewed: Yes Medication Review Details: Current Medications Albuterol Sulfate (Albuterol) 2.5 mg INHALATION Q4H PRN PRN Reason: Shortness Of Breath Albuterol/Ipratropium (Combivent Respimat) 1 puff INHALATION QID.RESPIRATORY [place] Last Admin: 07/27/20 20:58 Dose: 1 puff Documented by: Aspirin (Aspirin Chewable) 81 mg PO DAILY [facility] Dexamethasone (Decadron) 6 mg IVP Q24H [place] Last Admin: 07/27/20 13:02 Dose: 6 mg Documented by: Dextrose (D50w) 25 ml IVP ONCE PRN; Protocol PRN Reason: hypoglycemia protocol Dextrose (D50w) 50 ml IVP PRN PRN; Protocol PRN Reason: hypoglycemia protocol Fentanyl (Sublimaze) 50 mcg IVP Q4H PRN PRN Reason: SEVERE PAIN Last Admin: 07/26/20 18:21 Dose: 50 mcg Documented by: Glucagon (Glucagen) 1 mg IM ONCE PRN; Protocol PRN Reason: Adult Acute Hypoglycemia Prot. Heparin Sodium (Beef Lung) (Heparin) 5,000 unit SUBCUT Q8H [place] Last Admin: 07/28/20 04:00 Dose: 5,000 unit Documented by: Piperacillin Sod/Tazobactam (Sod 3.375 gm/ Sodium Chloride) 50 mls @ 12.5 mls/hr IV Q12H [place]SA[place]; Protocol Last Admin: 07/28/20 02:23 Dose: 12.5 mls/hr Documented by: Dextrose (D5w) 500 mls @ 100 mls/hr IV ONCE PRN; Protocol PRN Reason: Adult Acute Hypoglycemia Prot Dextrose (D10w) 1,000 mls @ 20 mls/hr IV .Q24H [facility] Last Admin: 07/27/20 15:01 Dose: 20 mls/hr Documented by: Insulin Aspart (Novolog) 0 unit SUBCUT WM&BEDTIME [place]SANA; Protocol Last Admin: 07/27/20 21:10 Dose: 8 unit Documented by: Insulin Glargine (Lantus) 10 unit SUBCUT DAILY [facility] Last Admin: 07/27/20 09:11 Dose: 10 unit Documented by: Ondansetron HCl (Zofran) 4 mg IVP Q6H PRN PRN Reason: NAUSEA AND VOMITING Pantoprazole Sodium (Protonix) 40 mg IVP Q12H [place] Last Admin: 07/28/20 04:00 Dose: 40 mg Documented by: Fluticasone/Salmeterol (Advair Diskus 250-50) 1 puff INHALATION BID.RESPIRATORY OKSANA Last Admin: 07/27/20 20:58 Dose: 1 puff Documented by: Vitals/I&O/Wt Last Vital Signs Temp 99.0 F 07/28/20 00:00 Pulse 91 07/28/20 01:00 Resp 10 L 07/28/20 01:00 BP 131/70 07/28/20 01:00 Pulse Ox 99 07/28/20 01:00 07/27/20 07/27/20 07/28/20 14:59 22:59 06:59 Intake Total 934.816 / 934.816 170 / 1104.816 Output Total 1250 / 1250 950 / 2200 Balance -315.184 / -315.184 -780 / -1095.184 Weight last 48 hrs Weight 67.449 kg Weight 77.111 kg Physical Exam Narrative: EXAM NARRATIVE: more alert.responsive, interactive. follows commands. knows he is in [facility]. heent- nc/at neck supple lungs b/l improved air movement, dec ronchi heart reg, no rub abd soft, nt, nd ext b/l bka, minimal arm edema neuro- a,a, o x 2, moves kelvin xt Urinary Catheter Management^: Tmz: Cath Placed During This Visit: no Reason for Continuing Indwelling Catheter: Accurate Measurement of Urinary Output in Critically Ill Patients Data : 07/28/20 02:30 07/28/20 02:30 Micro: Microbiology 07/26/20 15:31 Blood Culture - Preliminary Blood NEGATIVE TO DATE 07/26/20 10:30 Blood Culture - Preliminary Blood NEGATIVE TO DATE A&P Additional A&P Information 64 yr old man CHF- chronic systolic, COPD, PVD s/p b/l BKA, ICD, htn, hyperlipidemia 1. septic shock- agree w/ treat covid-19 and bacterial pna -renal dose meds - BP improved 2. inc agma likely from BLAINE and DKA -urine ketones was positive c/w DKA - lactate only 1.4 -improved w/ HD , insulin drip and ivf 3/ BLAINE- likely prerenal vs atn- was on lisinopril and i am concerned that he was on a phos based enema -normal renal us -normal ck -as he was hyperkalemic and had a CTA, we performed dialysis once- now improving -remove dialysis catheter -d/c mtz 3b/ Likely CKD stage 3- b/l cr in december 2019 was 1.8 mg/dl 4. hyperkalemia- improved off of lisinopril. -s/p HD and correction of DKA 5. DKA normalized 5b. DM care per medicine 6. anemia per medicine 7. pt needs nutrition 8. elevated trop likely from ischemia -known chronic systolic CHF EF 30-35% 9. copd/ lung disease per pulm cr close to baseline- renal will see PRN Attestations Medical Necessity Statement*: COVID-19, pna, ckd, [place] Time Spent in Patient Care: 16 - 35 minutes Coding Level of Care Code Acute Quality Process Lead for Pepe Mcfarland
[2020-07-28 07:13] LABS: Glucose Point of Care 227 mg/dL (70-110)
[2020-07-28] MEDS: aspirin 81 mg Chew Tablet PO (08:09)
[2020-07-28] MEDS: insulin glargine 100 units/1 mL 10 UNIT SUBCUT (08:10)
[2020-07-28 11:23] LABS: Glucose Point of Care 334 mg/dL (70-110)
--- NOTE | 2020-07-28 11:49 | P.DS_ITS ---
Discharge Providers Date of Admission: 07/26/20 12:08 Date of Discharge: July 28, 2020 Attending Provider at Admission: Srikanth Ham Attending Provider at Discharge: Srikanth Ham Primary Care Provider: Hiram Black DO Diagnoses at Discharge Discharge Diagnosis (1) BLAINE (acute kidney injury): Status: Acute (2) Acute encephalopathy: Status: Acute (3) Hyperkalemia: Status: Acute (4) DKA (diabetic ketoacidoses): Status: Acute (5) Pneumonia: Status: Acute (6) Chronic systolic CHF (congestive heart failure): Status: Acute (7) COPD (chronic obstructive pulmonary disease): Status: Chronic (8) Metabolic acidosis: Status: Acute (9) COVID-19: Status: Acute (10) Nicotine dependence, cigarettes, with other nicotine-induced disorders: Status: Chronic (11) CKD stage 3 secondary to diabetes: Status: Chronic (12) Hypotension: Status: Acute Reason for Visit Reason for Visit: low 02 Hospital Course Discharge Summary: Pleasant 64-year-old gentleman, long-term resident with history of CHF, EF 31%, with most recent admission here back in December due to CHF exacerbation, also COPD, chronically on oxygen at night and as needed during the day, GRACIA, at night on CPAP, chronic kidney disease, CAD, DM 2, bilateral BKA amputee, recently diagnosed with COVID-19 on 07/17 was admitted to the hospital after noted with decreased responsiveness and long-term, generally weak, with hypotension, and reported better sounding lungs. On presentation he was hypotensive, despite fluid resuscitation, transiently required pressor support. With noted acute kidney injury, creatinine up to 6, hyperkalemia, severe up to 7.8. Acute encephalopathy, unable to communicate or follow commands. With metabolic acidosis, also with DKA. Noted pneumonia bilateral lower lobes. CTA did not show PE. With known chronic CHF, however, did not appear to be in exacerbation. Echocardiogram shows EF essentially unchanged. Did have some moderate elevation of troponin thought to be perhaps due to demand ischemia due to acute illness. He was started on insulin drip, received calcium gluconate, Kayexalate for hyperkalemia, hemodialysis catheter was placed, and underwent 1 session of hemodialysis, subsequently with continued improvement in renal function, resolution of hyperkalemia. Small amount/slow bleed noted around the catheter. Hypotension possibly multifactorial secondary to hypovolemia, antihypertensive medications, sepsis possible, but did not fit sepsis criteria. Resolved. Hemodialysis catheter and central line removed. Received a dose of remdesivir, but this was not continued to poor renal function. Received 3 doses of Decadron. Was treated empirically with Zosyn for suspected pneumonia, suspected aspiration with AMS prior to admission. He has encephalopathy promptly resolved. DKA resolved, he was transitioned to subcutaneous insulin, started on oral diet. Oxygen promptly weaned down to room air, and has been doing well without any supplementation. He usually is on oxygen at night, this should be continued along with CPAP, and oxygen may be used during the day as needed, target saturation 92%. Continue isolation due to COVID-19 pneumonia. He is continued on Lovenox VT prophylaxis due to elevated risk. Ddimer 2.16. His kidney function continue to improve, creatinine down to as low as 2.2. Hyponatremia resolved. No recurrence of hyperkalemia. Lisinopril for now is held. Potassium supplement discontinued. Please recheck renal function and potassium in 3 days. Please avoid nephrotoxic medications. Avoid phosphate enemas. Please assist him in quitting smoking. Discussed with his daughter who is agreeable with plan. Blood and urine cultures are still pending. Please follow-up. Please feel free to call with any questions. Physical Exam Const: COMMON NORMALS: no acute distress, patient oriented x3 and alert GENERAL APPEARANCE: cooperative and comfortable ORIENTATION/CONSCIOUSNESS: Yes awake OTHER: Eating breakfast. Denies any discomfort. HENMT: COMMON NORMALS: oropharynx normal Neck/C-Spine: COMMON NORMALS: no JVD Resp: COMMON NORMALS: normal respiratory effort AUSCULTATION: diminished lung sounds Cardio: COMMON NORMALS: no JVD, regular rhythm, S1 normal heart sound present, S2 normal heart sound present and No murmurs present (Cardio) RHYTHM: regular rhythm HEART SOUNDS: S1 normal heart sound present and S2 normal heart sound present GI: COMMON NORMALS: Normal to inspection, nondistended, normoactive bowel sounds present, Soft to palpation and non-tender PALPATION: Yes Soft to palpation Extremity: COMMON NORMALS: no joint enlargement and no pedal edema NARRATIVE EXTREMITY EXAM: Bilateral BKA. Some mild patchy erythema/old pressure ulcers? Noted on bilateral stumps. No open ulcers. No deep tissue injury. Neuro: COMMON NORMALS: patient oriented x3 and moves all extremities SENSORIUM/ORIENTATION: Yes alert Skin: COMMON NORMALS: no rashes or lesions noted GENERAL SKIN EXAM: no rashes or lesions noted Urinary Catheter Management^: Mejia: Cath Placed During This Visit: yes, but has since been removed by the nurse Reason for Continuing Indwelling Catheter: Decision to DC Catheter Date Urinary Catheter Removed: 07/28/20 Time Urinary Catheter Discontinued: 09:21 Discharge Data Data Completed and Pending: Completed Studies During Hospitalization Category Date Time Status CT angio chest PE protcl [id number] Stat Cat Scan 07/26/20 11:02 Completed XR chest 1V bernard ble [id number] Routine Exams 07/26/20 18:26 Completed XR chest 1V bernard ble [id number] Stat Exams 07/26/20 10:13 Completed CV echo complete* [id number] Routine Ultrasound 07/27/20 07:00 Completed US renal BI* [id number] Urgent Ultrasound 07/26/20 12:42 Completed Pending at discharge Category Date Time Status Blood Culture Sta t Lab 07/26/20 15:31 Results Complete Blood Co unt w/Auto AM LABS Lab 07/29/20 04:00 Ordered Comprehensive Met abolic Panel AM LA BS Lab 07/29/20 04:00 Ordered D Dimer AM LABS Lab 07/28/20 02:30 Received Magnesium AM LABS Lab 07/29/20 04:00 Ordered Phosphorus AM LAB S Lab 07/29/20 04:00 Ordered Sputum Culture an d Gram Stain Stat Lab 07/26/20 10:13 Uncollected Urinalysis and Mi croscopic Stat Lab 07/26/20 12:37 Uncollected Urine Creatinine Stat Lab 07/26/20 12:42 Uncollected Urine Culture Sta t Lab 07/26/20 21:00 Results Urine Protein Ran dom Stat Lab 07/26/20 12:42 Uncollected Urine Random Lyte s Routine Lab 07/26/20 12:37 Uncollected Urine Random Sodi um Routine Lab 07/26/20 12:37 Uncollected Labs from last 24 hours 07/28/20 07/28/20 07/28/20 11:09 07:10 02:30 WBC RBC Hgb Hct MCV MCH MCHC RDW Plt Count MPV Neut % (Auto) Lymph % (Auto) [place] % (Auto) Eos % (Auto) Baso % (Auto) Neut # (Auto) Lymph # (Auto) [place] # (Auto) Eos # (Auto) Baso # (Auto) Nucleated RBC % (a uto) Nucleated RBCs # D-Dimer Pending Sodium Potassium Chloride Carbon Dioxide Anion Gap BUN Creatinine GFR Calculation Glucose POC Glucose 334 227 Calculated Osmolal ity Calcium Phosphorus Magnesium Total Bilirubin AST ALT Alkaline Phosphata se C-Reactive Protein Total Protein Albumin Globulin 07/28/20 07/28/20 07/28/20 02:30 02:30 02:30 WBC 7.8 RBC 3.69 L Hgb 10.5 L Hct 31.2 L MCV 84.6 MCH 28.5 MCHC 33.7 RDW 16.0 H Plt Count 277 MPV 10.1 Neut % (Auto) 78.3 Lymph % (Auto) 9.8 [place] % (Auto) 10.4 Eos % (Auto) 0.0 Baso % (Auto) 0.1 Neut # (Auto) 6.08 Lymph # (Auto) 0.8 [place] # (Auto) 0.8 Eos # (Auto) 0.0 Baso # (Auto) 0.0 Nucleated RBC % (a uto) 0 Nucleated RBCs # 0.0 D-Dimer Sodium 140 Potassium 3.7 Chloride 104 Carbon Dioxide 27 Anion Gap 12.7 BUN 48 H Creatinine 2.2 H GFR Calculation 30.3 L Glucose 216 H POC Glucose Calculated Osmolal ity 309 H Calcium 8.1 L Phosphorus 3.0 Magnesium 1.8 Total Bilirubin 0.2 AST 19 ALT 23 Alkaline Phosphata se 151 H C-Reactive Protein 47.3 H Total Protein 5.6 L Albumin 2.7 L Globulin 2.9 07/27/20 07/27/20 07/27/20 20:58 16:40 14:00 WBC RBC Hgb Hct MCV MCH MCHC RDW Plt Count MPV Neut % (Auto) Lymph % (Auto) [place] % (Auto) Eos % (Auto) Baso % (Auto) Neut # (Auto) Lymph # (Auto) [place] # (Auto) Eos # (Auto) Baso # (Auto) Nucleated RBC % (a uto) Nucleated RBCs # D-Dimer Sodium 140 Potassium 3.5 Chloride 106 Carbon Dioxide 23 Anion Gap 14.5 BUN 61 H Creatinine 2.2 H GFR Calculation 30.3 L Glucose 130 H POC Glucose 286 294 Calculated Osmolal ity 309 H Calcium 7.4 L Phosphorus Magnesium Total Bilirubin 0.2 AST 22 ALT 24 Alkaline Phosphata se 140 H C-Reactive Protein Total Protein 5.2 L Albumin 2.5 L Globulin 2.7 Vitals: Last Vital Signs Temp 98.8 F 07/28/20 07:00 Pulse 90 07/28/20 11:23 Resp 16 07/28/20 11:22 BP 136/74 07/28/20 08:00 Pulse Ox 95 07/28/20 11:22 Discharge Plan Discharge Patient Disposition: Xfer SNF Condition: Stable Prescriptions: New Lovenox 30 mg/0.3 mL syringe 30 mg SUBCUT Q24H 30 Days Qty: 9 RF: 0 nicotine 21 mg/24 hr patch 24 hour 1 patch TRANSDERMA DAILY Qty: 30 RF: 0 nicotine (polacrilex) 2 mg lozenge 2 mg BUCCAL Q1H PRN (Reason: nicotine cravings) Qty: 72 RF: 0 Augmentin 875-125 mg tablet 1 tab PO BID Qty: 12 RF: 0 Continued albuterol sulfate 2.5 mg /3 mL (0.083 %) solution for nebulization 2.5 mg INHALATION Q4H PRN (Reason: Shortness Of Breath) RF: 0 ondansetron HCl [Zofran] 4 mg Tablet See Rx Instructions .ROUTE .COMPLEX PRN (Reason: Nausea) RF: 0 magnesium hydroxide [Milk of Magnesia] 400 mg/5 mL Suspension 5 ml PO DAILY PRN (Reason: CONSTIPATON) RF: 0 Mucinex DM 30-600 mg Tablet Extended Release 12 Hr 1 tab PO Q12H PRN (Reason: Congestion) RF: 0 Hair,Skin and Nails 1 mg iron-66.7 mcg-1,000 mcg Tablet 1 tab PO DAILY RF: 0 citalopram 20 mg tablet 20 mg PO DAILY RF: 0 pantoprazole 40 mg tablet,delayed release (DR/EC) 40 mg PO BID RF: 0 Miralax 17 gram Powder In Packet 17 g PO DAILY RF: 0 bupropion HCl [Wellbutrin SR] 150 mg Tablet Sustained-Release 12 Hr 150 mg PO Q12H RF: 0 clopidogrel [Plavix] 75 mg Tablet 75 mg PO DAILY RF: 0 aspirin 81 mg Tablet,Delayed Release (Dr/Ec) 81 mg PO DAILY RF: 0 carvedilol 3.125 mg Tablet 3.125 mg PO BID RF: 0 tamsulosin 0.4 mg Capsule 0.4 mg PO DAILY RF: 0 bisacodyl 10 mg Suppository 10 mg KS DAILY PRN (Reason: CONSTIPATED) RF: 0 nitroglycerin 0.4 mg Tablet, Sublingual 0.4 mg SUBLINGUAL Q5M PRN (Reason: Chest Pain) RF: 0 budesonide 0.5 mg/2 mL suspension for nebulization 2 ml inhalation BID RF: 0 loratadine 10 mg Tablet 10 mg PO DAILY RF: 0 insulin lispro [Humalog KwikPen Insulin] 100 unit/mL Insulin Pen See Rx Instructions .ROUTE .COMPLEX RF: 0 rosuvastatin [Crestor] 20 mg Tablet 20 mg PO DAILY RF: 0 magnesium L-lactate [Magtab] 84 mg Tablet Extended Release 84 mg PO DAILY RF: 0 acetaminophen 325 mg 650 mg PO Q4-5H PRN (Reason: Pain) RF: 0 Changed Lantus U-100 Insulin 100 unit pen injector 12 unit SUBCUT DAILY Qty: 0 RF: 0 Held lisinopril 2.5 mg Tablet 2.5 mg PO DAILY RF: 0 Hold Instructions: Resume on 08/11/20. Discontinued Enema Disposable 19-7 gram/118 mL Enema 118 ml KS DAILY PRN (Reason: Constipation) RF: 0 potassium chloride 20 mEq Tablet Extended Release 20 meq PO DAILY RF: 0 furosemide 40 mg Tablet 80 mg PO DAILY Qty: 30 RF: 0 Discharge Orders: Discharge Order (Routine); Ordered 07/28/20 Ordered By: Srikanth Ham Referrals: Hiram Black DO [Primary Care Provider] - 4-7 days Discharge Diet: As Directed, Diabetic and Soft Mechanical Discharge Activity: Increase activity as tolerated Activity Restrictions/Additional Instructions: Please stop smoking. Continue smoking will lead to progression of lung disease, worsening hypoxia, in addition to risk factors for different cancers, as well as heart attack and stroke among other problems. Use nicotine patches, lozenges to help fight cravings. Doing well on room air, however, may use oxygen as needed. Target saturation 92%. Continue oxygen nightly as previously. Continue nightly CPAP. Please never smoked anywhere near oxygen due to severe fire hazard, risk of inhalational breaths, severe disability or . Please have that long-term recheck your renal function in 3 days to confirm that it is continuing to improve. Insulin Lantus dose is increased to 12 units. Encourage oral nutrition hydration. Add protein shakes/Glucerna to meals. Avoid any nephrotoxic medications. Avoid phosphate enemas. You have kidney injury lisinopril for now is held. Recheck renal function and potassium in 3 days. Please hold Lasix for the next 3 days, reassess volume status, then consider resuming Lasix at possibly 60 mg. Continue aspiration precautions. Mechanical soft diabetic diet with nectar thick liquids. Discharge Attestations Time Spent in Discharge Care*: greater than 30 min Quality Metrics Clinical Quality Measures During this hospital stay, did patient experience: None Coding Level of Care Code Acute Air Defense Artillery Officer for g Fwd Diagnoses BLAINE (acute kidney injury) N17.9 Acute encephalopathy G93.40 Hyperkalemia E87.5 DKA (diabetic ketoacidoses) E11.10 Pneumonia J18.9 Chronic systolic CHF (congestive heart failure) I50.22 COPD (chronic obstructive pulmonary disease) J44.9 Metabolic acidosis E87.2 COVID-19 U07.1 Nicotine dependence, cigarettes, with other nicotine-induced disorders F17.218 CKD stage 3 secondary to diabetes E11.22; N18.3 Hypotension I95.9
[2020-07-28] MEDS: dexamethasone 4 mg/mL INJ 6 MG IVP (12:53)
--- NOTE | 2020-07-28 14:14 | PC.NURSE ---
Addendum entered by Geri May RN 07/28/20 15:49: Follow up appointment not made, provider to follow up at longterm. Original Note: Report called to nurse Deborah at [facility]. All questions answered, verbalized understanding of discharge instructions and new medications. Patient updated, awaiting ride to longterm.
[2020-07-28 15:16] LABS: D Dimer 1.09 ug/mIFEU (0-0.59)
== END 2020-07-28 17:43 | disposition skilled nursing facility (03) | DRG 177 ==
LOC: ER 11:19 → ICU 15:12
PROVIDERS: Family Medicine; Internal Medicine Nephrology; Admitting Provider Internal Medicine; PCP Internal Medicine; Visit Provider Internal Medicine
DX: U07.1 COVID-19 (principal); E11.10 Type 2 diabetes mellitus with ketoacidosis without coma; J12.89 Other viral pneumonia; G93.41 Metabolic encephalopathy; R65.20 Severe sepsis without septic shock; I13.0 Hypertensive heart and chronic kidney disease with heart failure and stage 1 through stage 4 chronic kidney disease, or unspecified chronic kidney disease; I50.22 Chronic systolic (congestive) heart failure; N17.9 Acute kidney failure, unspecified; J44.1 Chronic obstructive pulmonary disease with (acute) exacerbation; J44.0 Chronic obstructive pulmonary disease with (acute) lower respiratory infection; E87.2 Acidosis; E11.22 Type 2 diabetes mellitus with diabetic chronic kidney disease; N18.32 Chronic kidney disease, stage 3b; E11.51 Type 2 diabetes mellitus with diabetic peripheral angiopathy without gangrene; Z89.512 Acquired absence of left leg below knee; Z89.511 Acquired absence of right leg below knee; Z95.810 Presence of automatic (implantable) cardiac defibrillator; E87.5 Hyperkalemia; F41.9 Anxiety disorder, unspecified; N40.1 Benign prostatic hyperplasia with lower urinary tract symptoms; N39.41 Urge incontinence; R33.8 Other retention of urine; I25.10 Atherosclerotic heart disease of native coronary artery without angina pectoris; Z95.5 Presence of coronary angioplasty implant and graft; F32.9 Major depressive disorder, single episode, unspecified; F17.210 Nicotine dependence, cigarettes, uncomplicated; Z99.81 Dependence on supplemental oxygen; I95.9 Hypotension, unspecified; Z79.51 Long term (current) use of inhaled steroids; Z79.4 Long term (current) use of insulin; Z79.02 Long term (current) use of antithrombotics/antiplatelets
CPT/HCPCS: 12345; 36416; 36592; 36600; 51702; 71045; 71275; 76770; 80048; 80051; 80053; 80202; 81001; 82009; 82330; 82550; 82803; 82805; 82962; 83605; 83615; 83735; 84100; 84145; 84484; 85025; 85378; 85384; 86140; 86403; 86706; 86803; 87040; 87086; 87340; 87449; 92610; 93005; 93306; 94640; 94660; 94664; 96372; 99284; C1751; C9113; J0610; J1100; J1644; J1650; J1815 ×2; J1956; J2543; J3010; J3370; J3535; J7030; J7050; J7799; Q3014; Q9967

== ENCOUNTER 2020-09-07 11:00 | Inpatient (IN) | payer MEDICARE, MEDICAID, SELFPAY ==
[2020-09-07] VITALS (16 sets, daily range): BP systolic 94–134; BP diastolic 60–90; PULSE 90–96; RESP 15–32; TEMP 36.6; O2SAT 91–100; BMI 22.8
--- NOTE | 2020-09-07 11:09 | CT_ITS ---
WS: [id number] CT ABDOMEN AND PELVIS NONCONTRAST HISTORY: r/o perineal abscess TECHNIQUE: Imaging performed through the abdomen and pelvis. Coronal and sagittal reformats are submi tted. All CT scans at [facility] use at least one of these dose optimization techniques: automated exposure control; mA and/or kV adjustment per patient size (includes targeted exams where d ose is matched to clinical indication); or iterative reconstruction. DLP: 518.67 mGy.cm COMPARISON: 05/27/2019 Lower thorax: Dense areas of consolidations at the lung bases, RIGHT greater than LEFT. There is dens e pleural thickening. Calcifications are new in the RIGHT lower lobe. Heart is enlarged. Study is limited by motion artifact. Liver: Normal size with granulomata. Gallbladder: Slightly contracted and limited otherwise by motion. Pancreas: Atrophied. Granulomatous disease. Spleen: Normal. Adrenal glands: Normal. No mass. Right kidney: Normal size kidney with no mass or hydronephrosis. Left kidney: Normal size kidney with no mass or hydronephrosis. Aorta: Mild atherosclerosis abdominal aorta with no aneurysm. Limited by motion. No free fluid or free air or significant adenopathy appreciated. GI tract: Diffuse fecal retention. No obstructive pattern. Abdominal wall: Negative. No hernia. Pelvis: Urinary bladder is well distended. Diffuse bladder wall thickening measuring up to 10 mm. The re is a large fluid collection in the perineum measuring 8.7 x 2.8 cm. This is along the inferior per ineum and may be an abscess. No contrast was given therefore cannot evaluate for enhancement. Osseous structures: Complete loss of the L2-3 disc space. No osteoblastic or osteolytic disease. CT/CT abdomen pelvis wo con [id number] IMPRESSION: 1. Focal collection in the perineum measuring 8.7 x 2.8 cm. This collection do es not contain air. Cannot confirm abscess without IV contrast. Clinically this abscess should be readily visible. 2. Increasing areas of consolidation and pleural thickening at the lung bases, RIGHT greater than LEFT. 3. Cardiomegaly. 4. Study is overall limited by breathing motion artifact. 5. Urinary bladder wall thickening up to 10 mm. Correlate for possible cystiti s.
--- NOTE | 2020-09-07 11:18 | W.ED.SKABFB ---
HPI - Skin/Abscess/Foreign Bdy General: Chief complaint: Skin/Abscess/Foreign Body Stated complaint: PERINEUM LANCED Time Seen by Provider: 09/07/20 11:04 Source: patient and EMS Mode of arrival: EMS Limitations: no limitations History of Present Illness: HPI narrative: 64-year-old male who is here from local [place] [facility] with multiple medical problems. Eczema. They are concerned he may have a perineal abscess. He states that he has had pain down there. Denies any drainage. Patient denies any fever. Patient is a very poor historian though and difficult to get much of a history from him. He denies any pain currently and denies any worsening improving factors. Associated symptoms: Deny chills, fever(s), nausea or vomiting Review of Systems Const: Denies: fever(s), chills, body aches or change in appetite Eyes: Denies: blurry vision or eye discomfort ENMT: Denies: throat pain or dental pain Card: Denies: chest pain Resp: Denies: dyspnea GI: Denies: abdominal pain, nausea, vomiting or diarrhea : Denies: dysuria Musc: Denies: neck pain or back pain Skin/Breast: Denies: rash Neuro: Denies: headache(s) Psych: Denies: depression Ashvin/Lymph: Denies: easy bruising All/Imm: Denies: urticaria PFSH ED PFSH: Medical History (Updated 09/07/20 @ 15:06 by Jasbir West MD) Abnormal cystoscopy Anxiety BPH (benign prostatic hyperplasia) Chronic systolic CHF (congestive heart failure) CKD stage 3 secondary to diabetes COPD (chronic obstructive pulmonary disease) Coronary artery disease Depression Dysphagia History of urinary retention Hypertension Peripheral vascular disease Type 2 diabetes mellitus Urgency incontinence Surgical History Coronary angioplasty status History of carpal tunnel surgery History of hip surgery S/P bilateral BKA (below knee amputation) S/P right coronary artery (RCA) stent placement Family History Other CAD (coronary artery disease) Diabetes Social History Smoking and tobacco status: current every day smoker cigarettes Packs smoked per day: 0.5 Years cigarettes smoked: 59 Second hand smoke exposure: Yes Alcohol intake: never Lives independently: No Housing: [facility] Marital status: Current occupational status: retired and disabled History of recent travel: No Current gender identity: Male Physical Exam Const: COMMON NORMALS: no acute distress, patient oriented x3 and healthy appearing HENMT: COMMON NORMALS: normocephalic and atraumatic HEAD & SCALP: normocephalic and atraumatic Eye: COMMON NORMALS: Equal, round and reactive pupils present and EOMs intact bilaterally PUPIL: Yes Equal, round and reactive pupils present Neck/C-Spine: COMMON NORMALS: full ROM and supple Chest: COMMONS NORMALS: normal inspection of the chest and normal palpation of entire chest wall Resp: COMMON NORMALS: normal respiratory effort, No retractions, No use of accessory muscles and clear to auscultation bilaterally AUSCULTATION: clear to auscultation bilaterally Cardio: COMMON NORMALS: regular rate, regular rhythm and No murmurs present (Cardio) RATE: regular rate RHYTHM: regular rhythm GI: COMMON NORMALS: Normal to inspection, nondistended, normoactive bowel sounds present, Soft to palpation, non-tender and no masses PALPATION: Yes Soft to palpation : OTHER: Perineal abscess but does not seem to be perianal. Extremity: COMMON NORMALS: normal to inspection and full ROM Neuro: COMMON NORMALS: patient oriented x3, moves all extremities and no focal motor deficits Psych: COMMON NORMALS: mental status grossly normal, Normal thought process present and cooperative THOUGHT PROCESS: Normal thought process present Skin: COMMON NORMALS: no rashes or lesions noted and no wounds GENERAL SKIN EXAM: no rashes or lesions noted Procedures Abscess I/D Site: other (perineum) Local Anesthetic: lidocaine 1% Amount of anesthesia used (mL): 10 Technique: incised with #11 blade Packing used?: iodoform Course Vital Signs: Vital signs: Vital Signs Pulse Rate 92 09/07/20 14:07 Respiratory Rate 28 H 09/07/20 14:07 Blood Pressure 134/79 09/07/20 14:07 Pulse Oximetry 91 09/07/20 14:07 MDM - Skin/Abscess/Foreign Bdy MDM Narrative: Medical decision making narrative: Tashi presents here with multiple problems. He does have a perineal abscess today incised and drained. He is also hyperkalemic and has a right lower lobe pneumonia. Patient placed on BiPAP started on IV antibiotics. I gave him insulin as well. Spoke to hospitalist will admit to the ICU. Lab Data: Labs: Lab Results 09/07/20 09/07/20 09/07/20 Range/Units 12:05 12:05 12:05 WBC 16.6 H (4.0-10.0) 10^3/ uL RBC 2.91 L (4.1-5.3) 10^6/u L Hgb 8.1 L (11.7-16.6) g/dL Hct 27.1 L (42.0-52.0) % MCV 93.1 (80-94) fL MCH 27.8 L (28.0-34.0) pg MCHC 29.9 L (30.0-36.0) g/dL RDW 15.2 H (12.1-15.1) % Plt Count 628 H (130-400) 10^3/c mm MPV 9.2 (7.4-10.4) fL Neut % (Auto) 81.5 % Lymph % (Auto) 7.5 % [place] % (Auto) 6.6 % Eos % (Auto) 0.8 % Baso % (Auto) 0.5 % Neut # (Auto) 13.50 H (1.8-7.7) 10^3/u L Lymph # (Auto) 1.3 (0.8-4.8) 10^3/u L [place] # (Auto) 1.1 H (0.2-0.9) 10^3/u L Eos # (Auto) 0.1 (0.0-0.8) 10^3/u L Baso # (Auto) 0.1 (0.0-0.1) 10^3/u L Nucleated RBC % (a uto) 0 % Nucleated RBCs # 0.0 /100WBC Sodium 133 L (136-145) mmol/L Potassium 6.8 H* (3.5-5.1) mmol/L Chloride 101 (98-107) mmol/L Carbon Dioxide 25 (22-29) mmol/L Anion Gap 13.8 (5-19) BUN 49 H (8-23) mg/dL Creatinine 2.8 H (0.7-1.2) mg/dL GFR Calculation 22.9 L (90-130) mL/min Glucose 368 H (65-115) mg/dL Calculated Osmolal ity 304 H (285-295) mOsm/k g Lactate 1.2 (0.5-2.2) mmol/L Calcium 9.1 (8.5-10.5) mg/dL Total Bilirubin 0.2 (0.15-1.2) mg/dL AST 13 (0-40) U/L ALT 16 (0-41) U/L Alkaline Phosphata se 149 H (40-130) IU/L Total Protein 7.2 (6.6-8.7) g/dL Albumin 3.0 L (3.5-5.2) g/dL Globulin 4.2 (1.3-4.6) g/dL Imaging Data^: CT Abd/Pel: Attestation: I personally reviewed and interpreted this imaging study as follows: Radiologist's impression: [place] [id number] CT Scan Report Signed Patient: Tashi Cole Unit #: [id number] : 1955 Age/Sex: 64 / M ADM Date: 09/07/20 Loc: ER Room/Bed: Attending Dr: Ordering Provider/Ordering MD: Chris Ruiz MD Date of Service: 09/07/20 Procedure(s): CT abdomen pelvis wo con [id number] Accession Number(s): [id number] Report Number: [id number] WS: [id number] CT ABDOMEN AND PELVIS NONCONTRAST HISTORY: r/o perineal abscess TECHNIQUE: Imaging performed through the abdomen and pelvis. Coronal and sagittal reformats are submitted. All CT scans at [facility] use at least one of these dose optimization techniques: automated exposure control; mA and/or kV adjustment per patient size (includes targeted exams where dose is matched to clinical indication); or iterative reconstruction. DLP: 518.67 mGy.cm COMPARISON: 05/27/2019 Lower thorax: Dense areas of consolidations at the lung bases, RIGHT greater than LEFT. There is dense pleural thickening. Calcifications are new in the RIGHT lower lobe. Heart is enlarged. Study is limited by motion artifact. Liver: Normal size with granulomata. Gallbladder: Slightly contracted and limited otherwise by motion. Pancreas: Atrophied. Granulomatous disease. Spleen: Normal. Adrenal glands: Normal. No mass. Right kidney: Normal size kidney with no mass or hydronephrosis. Left kidney: Normal size kidney with no mass or hydronephrosis. Aorta: Mild atherosclerosis abdominal aorta with no aneurysm. Limited by motion. No free fluid or free air or significant adenopathy appreciated. GI tract: Diffuse fecal retention. No obstructive pattern. Abdominal wall: Negative. No hernia. Pelvis: Urinary bladder is well distended. Diffuse bladder wall thickening measuring up to 10 mm. There is a large fluid collection in the perineum measuring 8.7 x 2.8 cm. This is along the inferior perineum and may be an abscess. No contrast was given therefore cannot evaluate for enhancement. Osseous structures: Complete loss of the L2-3 disc space. No osteoblastic or osteolytic disease. CT/CT abdomen pelvis wo con [id number] IMPRESSION: 1. Focal collection in the perineum measuring 8.7 x 2.8 cm. This collection does not contain air. Cannot confirm abscess without IV contrast. Clinically this abscess should be readily visible. 2. Increasing areas of consolidation and pleural thickening at the lung bases, RIGHT greater than LEFT. 3. Cardiomegaly. 4. Study is overall limited by breathing motion artifact. 5. Urinary bladder wall thickening up to 10 mm. Correlate for possible cystitis. CXR: My impression: rll pneumonia EKG Data^: EKG 1: Attestation: I personally reviewed and interpreted this EKG as follows: EKG Interpretation Date: 09/07/20 EKG interpretation time: 14:22 Interpretation: sinus tach hr [address] or t wave abnormaliteis qrs 124 qtc 421 Discharge Plan Discharge Patient Disposition: Admitted As Inpatient Admit Provider: Jasbir West Clinical Impression: CKD stage 3 secondary to diabetes, Acute hyperkalemia, Abscess Pneumonia Qualifiers: Pneumonia type: due to unspecified organism Laterality: right Lung location: lower lobe of lung Qualified Code(s): J18.9 - Pneumonia, unspecified organism Condition: Stable Coding Level of Care Code ED Data Science And [employer]ot Manager for [facility] Fwd Exam Comprehensive
[2020-09-07 13:00] LABS: Basophils # 0.1 10^3/uL (0.0-0.1); Basophils % 0.5 %; Eosinophils # 0.1 10^3/uL (0.0-0.8); Eosinophils % 0.8 %; Hematocrit 27.1 % (42.0-52.0); Hemoglobin 8.1 g/dL (11.7-16.6); Lymphocytes # 1.3 10^3/uL (0.8-4.8); Lymphocytes % 7.5 %; Mean Corpuscular HGB Conc 29.9 g/dL (30.0-36.0); Mean Corpuscular Hemoglobin 27.8 pg (28.0-34.0); Mean Corpuscular Volume 93.1 fL (80-94); Mean Platelet Volume 9.2 fL (7.4-10.4); Monocytes # 1.1 10^3/uL (0.2-0.9); Monocytes % 6.6 %; Neutrophils % 81.5 %; Nucleated Red Blood Cells % 0 %; Platelet Count 628 10^3/cmm (130-400); Red Blood Count 2.91 10^6/uL (4.1-5.3); Red Cell Distribution Width 15.2 % (12.1-15.1); White Blood Count 16.6 10^3/uL (4.0-10.0)
[2020-09-07 13:03] LABS: Alanine Aminotransferase 16 U/L (0-41); Alkaline Phosphatase 149 IU/L (40-130); Anion Gap 13.8 (5-19); Aspartate Amino Transferase 13 U/L (0-40); Blood Urea Nitrogen 49 mg/dL (8-23); Calcium 9.1 mg/dL (8.5-10.5); Carbon Dioxide 25 mmol/L (22-29); Chloride 101 mmol/L (98-107); Globulin 4.2 g/dL (1.3-4.6); Glomerular Filtration Rate 22.9 mL/min (90-130); Glucose 368 mg/dL (65-115); Osmolality Calculated 304 mOsm/kg (285-295); Sodium 133 mmol/L (136-145); Total Bilirubin 0.2 mg/dL (0.15-1.2); Total Protein 7.2 g/dL (6.6-8.7)
[2020-09-07 13:04] LABS: Lactate (Lactic Acid level) 1.2 mmol/L (0.5-2.2)
[2020-09-07 13:13] LABS: Potassium 6.8 mmol/L (3.5-5.1)
--- NOTE | 2020-09-07 13:16 | ECG_ITS ---
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 Measurements Intervals [place] Rate: 104 P: 73 MI: 209 QRS: 34 QRSD: 124 T: 170 QT: 361 QTc: 475 Interpretive Statements SINUS TACHYCARDIA INFERIOR MYOCARDIAL INFARCTION [40+ ms Q WAVE AND/OR ST/T ABNORMALITY IN II/aVF], OF INDETERMINATE AGE ANTEROSEPTAL MYOCARDIAL INFARCTION [40+ ms Q WAVE IN V1-V4], OF INDETERMINATE AGE Compared to ECG 07/27/2020 02:21:54 Sinus rhythm no longer present ST (T wave) deviation no longer present Myocardial infarct finding still present Electronically Signed On 09-08-2020 22:21:42 FORESTRY TECHNICIAN by Rosa Wiggins M.D. [email or web address]
--- NOTE | 2020-09-07 13:16 | PC.NURSE ---
pt pulled IV out
[2020-09-07] MEDS: vancomycin 1,000 MG in sodium chloride 0.9% 250 ML 250 MG IV (13:49)
[2020-09-07] MEDS: insulin regular-human 100 units/1 mL 10 UNIT IVP (13:52)
--- NOTE | 2020-09-07 14:10 | XR_ITS ---
WS: [id number] XR chest 1V portable [id number] REASON FOR EXAM: sob FINDINGS: Compared to the previous examination of 07/26/2020, the right IJ and left subclavian central venous li janice have been removed. There is a coarse reticular interstitial pattern throughout both lower lung ross with areas of patc hy airspace consolidation. There is a moderate right pleural effusion. These findings represent signi ficant interval progression of lung disease and effusions. A CT scan of the abdomen and pelvis from [facility] demonstrates bilateral pleural effusions and findings of pulmonary edema and lung consolidation. XR/XR chest 1V portable [id number] IMPRESSION: There is congestive heart failure and likely superimposition of pneumonitis.
--- NOTE | 2020-09-07 15:02 | PM.HP ---
Providers/Chief Complaint Admitting Physician: Jasbir West MD Primary Care Provider: Hiram Black DO Chief Complaint: PERINEUM LANCED History of Present Illness Tashi Cole is a 64 year old male with a past medical history of systolic and diastolic heart failure, EF 31%, status post AICD, advanced COPD, chronic atelectasis of right middle lobe status post bronchoscopy, longstanding calcific subcarinal and bilateral hilar adenopathy, chronic right middle lobe atelectasis, severe peripheral vascular disease, current smoker, chronically on oxygen at night, as needed during the day, GRACIA, on CPAP, CKD stage II-III, CAD status post balloon angioplasty to RCA on February 2017, type 2 diabetes mellitus, bilateral BKA amputee, who has had over 10 hospitalizations in the last 2 years for COPD, CHF, pneumonia. Recent hospitalization on 07/28/2020 for BLAINE requiring dialysis catheter placement, severe DKA, pneumonia, CHF, COPD, history of COVID-19 on 07/17 who presents [facility] due to rectal abscess and shortness of breath When asked why he is here, he tells me that his breathing is raspy, and he feels short of breath, no fevers, no chills, no nausea, no vomiting, no cough, tells me that his breathing feels raspy, either that he does not have any significant complaints Patient was found to have a rectal abscess at the [facility], I spoke to [facility], they tell me that this morning they turned him, and found a rectal abscess, they spoke to Dr. Black, who advised that he needed to have a drain, so he was sent over to the ER. The nurse tells me that his breathing does sound more raspy than normal, no known fevers, no chills,, he has required more breathing treatments than usual Review of Systems Const: Denies: fever(s), chills, fatigue or malaise Eyes: Denies: change in vision or blurry vision ENMT: Denies: nasal congestion Card: Denies: chest pain or palpitations Resp: Reports: dyspnea; Denies: productive cough, non-productive cough or wheezing GI: Denies: abdominal pain, nausea, vomiting, hematemesis, diarrhea, constipation, hematochezia or melena : Denies: flank pain, difficulty urinating, dysuria or urinary frequency Musc: Denies: neck pain or back pain Skin/Breast: Denies: rash Neuro: Denies: headache(s), dizziness or vertigo Psych: Denies: anxiety or depression Endo: Denies: polyuria or polydipsia Medications/Allergies Home Medications Medication Instructions Recorded Confirmed Last Taken Type acetaminophen 650 mg PO Q4H PRN #0 10/19/19 09/07/20 12/24/19 18:00 History aspirin 81 mg PO DAILY@10/19/19 09/07/20 09/07/20 History bisacodyl 10 mg RI DAILY PRN 10/19/19 09/07/20 12/23/19 08:00 History 10 mg budesonide 2 ml INHALATION BID 10/19/19 09/07/20 09/07/20 History bupropion HCl [Wellbutrin SR] 150 mg PO Q12H 10/19/19 09/07/20 09/07/20 History carvedilol 3.125 mg PO BID@10/19/19 09/07/20 09/07/20 History clopidogrel [Plavix] 75 mg PO DAILY@10/19/19 09/07/20 09/07/20 History insulin lispro [Humalog KwikPen See Rx Instructions .ROUTE .COMPLEX 10/19/19 09/07/20 07/26/20 History Insulin] loratadine 10 mg PO DAILY@10/19/19 09/07/20 09/07/20 History magnesium L-lactate [Magtab] 84 mg PO DAILY@10/19/19 09/07/20 09/07/20 History nitroglycerin 0.4 mg SUBLINGUAL Q5M PRN 10/19/19 09/07/20 Unknown History rosuvastatin [Crestor] 20 mg PO DAILY@10/19/19 09/07/20 09/06/20 History tamsulosin 0.4 mg PO DAILY@10/19/19 09/07/20 09/07/20 History Hair,Skin and Nails 1 tab PO DAILY@12/15/19 09/07/20 09/07/20 History Mucinex DM 1 tab PO BID@12/15/19 09/07/20 09/07/20 History magnesium hydroxide [Milk of 30 ml PO DAILY PRN 12/15/19 09/07/20 Unknown History Magnesia] ondansetron HCl [Zofran] 4 mg PO Q4H PRN 12/15/19 09/07/20 07/26/20 History albuterol sulfate 2.5 mg INHALATION Q4H PRN 03/28/20 09/07/20 09/07/20 History citalopram 20 mg PO DAILY@08 07/26/20 09/07/20 09/07/20 History pantoprazole 40 mg PO BID@,07/26/20 09/07/20 09/07/20 History polyethylene glycol 3350 [Miralax] 17 g PO DAILY@08 07/26/20 09/07/20 09/07/20 History nicotine (polacrilex) 2 mg BUCCAL Q1H PRN #72 each 07/28/20 09/07/20 Unknown Rx glucagon HCl [Glucagon (HCl) 1 mg SUBCUT Q20M PRN 09/07/20 09/07/20 Unknown History Emergency Kit] insulin glargine [Lantus Solostar 24 unit SUBCUT DAILY@08 09/07/20 09/07/20 09/07/20 History U-100 Insulin] insulin lispro [Humalog Willem 8 unit SUBCUT TID@,,09/07/20 09/07/20 09/07/20 History KwikPen U-100] ipratropium-albuterol 3 ml INHALATION BID@,18 PRN 09/07/20 09/07/20 Unknown History nut.tx,spec.frm,l-fr,iron-fos 1 ea PO BID@09/07/20 09/07/20 09/07/20 History [TwoCal HN] Allergies Allergy/AdvReac Type Severity Reaction Status Date / Time tramadol Allergy ADR-Vomitin Verified 08/29/20 09:56 g PFSH Acute PFSH: Medical History (Updated 09/07/20 @ 15:34 by Jasbir West MD) Abnormal cystoscopy Anxiety BPH (benign prostatic hyperplasia) Chronic systolic CHF (congestive heart failure) CKD stage 3 secondary to diabetes COPD (chronic obstructive pulmonary disease) Coronary artery disease Depression Dysphagia History of urinary retention Hypertension Peripheral vascular disease Type 2 diabetes mellitus Urgency incontinence Surgical History Coronary angioplasty status History of carpal tunnel surgery History of hip surgery S/P bilateral BKA (below knee amputation) S/P right coronary artery (RCA) stent placement Family History Other CAD (coronary artery disease) Diabetes Social History Smoking and tobacco status: current every day smoker cigarettes Packs smoked per day: 0.5 Years cigarettes smoked: 59 Second hand smoke exposure: Yes Alcohol intake: never Lives independently: No Housing: Group Home Marital status: Current occupational status: retired and disabled History of recent travel: No Current gender identity: Male Vitals/I&O/Wt Last Vital Signs Pulse 92 09/07/20 14:07 Resp 28 H 09/07/20 14:07 BP 134/79 09/07/20 14:07 Pulse Ox 91 09/07/20 14:07 Weight last 48 hrs Weight 68.039 kg Physical Exam Const: COMMON NORMALS: no acute distress and patient oriented x3 GENERAL APPEARANCE: cooperative and comfortable HENMT: COMMON NORMALS: normocephalic HEAD & SCALP: normocephalic Eye: COMMON NORMALS: Equal, round and reactive pupils present and EOMs intact bilaterally GENERAL EYE: appearance normal, both eyes and all related structures PUPIL: Yes Equal, round and reactive pupils present Neck/C-Spine: COMMON NORMALS: full ROM, no lymphadenopathy, no JVD and Thyroid normal THYROID: Thyroid normal Lymph: LYMPHATIC: no lymphadenopathy noted Resp: COMMON NORMALS: normal respiratory effort, No retractions, No use of accessory muscles and clear to auscultation bilaterally AUSCULTATION: crackles and wheezes Cardio: COMMON NORMALS: no JVD, regular rate, regular rhythm, S1 normal heart sound present, S2 normal heart sound present, No gallops present (Cardio), No clicks present (Cardio) and No murmurs present (Cardio) RATE: regular rate RHYTHM: regular rhythm HEART SOUNDS: S1 normal heart sound present and S2 normal heart sound present GI: COMMON NORMALS: Normal to inspection, nondistended, normoactive bowel sounds present, Soft to palpation, non-tender and No hepatosplenomegaly present PALPATION: Yes Soft to palpation and Yes No hepatosplenomegaly present Extremity: NARRATIVE EXTREMITY EXAM: Bilateral lower extremities BKA Neuro: COMMON NORMALS: patient oriented x3, CN's II-XII intact bilaterally, moves all extremities and no focal motor deficits Psych: COMMON NORMALS: mental status grossly normal, Normal thought process present and cooperative THOUGHT PROCESS: Normal thought process present Data : 09/07/20 12:05 09/07/20 12:05 A&P Assessment and plan (1) Acute respiratory failure with hypoxia: -Secondary to healthcare associated pneumonia, possible aspiration pneumonia/pneumonitis, CHF exacerbation, COPD -Recent hospital admission for pneumonia, chest x-ray shows bilateral pleural effusions,, pulmonary edema, pneumonitis, right middle lobe and right lower lobe pneumonia -WBC 16,000, ABG shows pH 7.31, PCO2 44.6, PO2 171, lactic acid 1.2, bicarb 25, blood sugar 368 Plan: -Obtain ABG -Sputum cultures, blood cultures, urine bacterial antigens -Pro-Joey, CRP, BNP -Echocardiogram, chest CT -Telemetry monitoring -Continue 2 L nasal cannula, BiPAP as needed during the day, BiPAP schedule during the night -Broad-spectrum antibiotic therapy vancomycin, Zosyn and azithromycin -Solu-Medrol 40 every 8 hours, DuoNebs every 4 hours -Lasix 40 mg IV twice daily -Monitor creatinine, monitor urine output closely -I am highly suspicious for aspiration pneumonia, as patient has recurrent right middle lobe right lower lobe pneumonia -Has had a bronchoscopy for recurrent pneumonias in right middle lobe, which has been unremarkable, has chronic right middle lobe atelectasis secondary to adenopathy, negative for postobstructive in the past -Patient is DNR/DNI -Heparin for DVT prophylaxis Status: Acute (2) CAD (coronary artery disease): #1 Left main is normal #2 LAD has luminal irregularities a patent previously placed stent #3 LCx is small nondominant vessel without significant stenosis #4 RCA has anterior takeoff difficult to engage AL-1 catheter was used it is a diffusely diseased vessel with multiple stents proximal RCA has 90% stenosis mid to distal RCA into PDA and PLB bifurcation has 60-70% tandem stenosis. It is the culprit vessel Successful PCI to proximal RCA and balloon angioplasty to mid to distal RCA Plan: -Continue aspirin, Plavix, statin, Coreg -Serial troponins, serial EKGs Status: Acute (3) Rectal abscess: -Status post incision and drainage by ER -Surgery has been consulted by ER physician -On broad-spectrum antibiotic therapy as above Status: Acute (4) Acute hyperkalemia: -History of acute on chronic hyperkalemia -Received insulin, D50, calcium gluconate by ER -On Lasix therapy -Repeat CMP at 6 PM -Kayexalate -telemetry monitoring Status: Acute (5) Acute on chronic renal failure: -History of CKD stage III -On last admission, month ago, had acute renal failure, creatinine as high as 6, requiring dialysis, dialysis catheter removed -Currently creatinine is 2.8 -I am suspecting that it is likely secondary to cardiorenal syndrome some hypovolemia -Carefully diuresis -Monitor creatinine, monitor urine output Status: Acute (6) COVID-19: -No significant COVID-19 symptoms Status: Acute (7) Chronic systolic CHF (congestive heart failure): -echo 07/2020 LV systolic function is severely reduced with EF of 30 to 35%. Regional wall motion abnormalities cannot be assessed because of limited visualization. Diastolic function is abnormal. Valvular structures are not completely assessed because of limited echocardiogram. Compared to prior study from 12/26/2019, no significant changes are noted. -We will repeat echocardiogram Status: Acute (8) S/P bilateral BKA (below knee amputation): -Secondary to severe peripheral vascular disease, vasculopathy, diabetes Status: Chronic (9) Type 2 diabetes mellitus: -Continue sliding scale, Lantus 24 units daily Status: Chronic (10) Peripheral vascular disease: Aspirin, statin, Plavix Status: Chronic (11) Hypertension: Status: Chronic (12) CKD stage 3 secondary to diabetes: Status: Chronic (13) COPD (chronic obstructive pulmonary disease): Status: Chronic (14) Acute on chronic anemia: -Hemoglobin 8.1 -Likely secondary to CKD, but cannot rule out slow GI bleed as he is on multiple antiplatelet agents -Monitor hemoglobin closely, monitor hemodynamics -Iron, TIBC, B12, folate, ferritin, Hemoccult stool -Protonix 40 twice daily, carafate Status: Acute Attestations Medical Necessity Statement*: Patient requires hospitalization, inpatient, greater than 2 midnights, for acute respiratory failure secondary to COPD, CHF, pneumonia, hyperkalemia, acute renal failure, rectal abscess Coding Level of Care Code Acute Community Service Aide for [facility] Fwd Diagnoses Acute respiratory failure with hypoxia J96.01 CAD (coronary artery disease) I25.10 Rectal abscess K61.1 Acute hyperkalemia E87.5 Acute on chronic renal failure N17.9; N18.9 COVID-19 U07.1 Chronic systolic CHF (congestive heart failure) I50.22 S/P bilateral BKA (below knee amputation) Z89.512; Z89.511 Type 2 diabetes mellitus E11.9 Peripheral vascular disease I73.9 Hypertension I10 CKD stage 3 secondary to diabetes E11.22; N18.3 COPD (chronic obstructive pulmonary disease) J44.9 Acute on chronic anemia D64.9
[2020-09-07] MEDS: piperacillin-tazobactam 2.25 GM in sodium chloride 0.9% (plus) 50 ML IV (15:14)
[2020-09-07 15:22] LABS: ABG PCO2 44.6 mmHg (35-45); ABG PH Result 7.31 (7.35-7.45); Base Excess ABG -3.6 mmol/L (-2.0-2.0); HCO3 ABG 22.5 mmol/L (22-26)
[2020-09-07 15:23] LABS: Arterial Blood Gas Hematocrit 25.8 % (42-52); Blood Gas Allen Test POS; Blood Gas Sample Site LEFT RADIAL; Blood Gas Sample Type ARTERIAL; Oxygen Device NC
[2020-09-07 16:00] LABS: NT Pro B Type Natriuretic Pept 14481 pg/mL (0-125)
--- NOTE | 2020-09-07 16:35 | PM.CONSULT ---
Providers/Reason For Consult Consulting Physican/Specialty*: Uriel Chinchilla MD Reason for Consult*: Perineal abscess Requesting Physcian: Dr. Ruiz Attending Physician: Jasbir West MD Primary Care Provider: Hiram Black DO History of Present Illness History of Present Illness Chief Complaint: Problem with breathing History of present illness: Tashi Cole is a 64 year old male with multiple associated medical comorbidities in the form of COPD, diastolic heart failure, ejection fraction 31%, chronic atelectasis of right middle lobe status post bronchoscopy, longstanding calcific subcarinal and bilateral hilar adenopathy, severe peripheral vascular disease with bilateral below the knee amputee. Chronically on home O2 at night and history of being on CPAP and chronic kidney disease stage III in addition to history of diabetes mellitus type 2. Patient presented to the emergency department because of shortness of breath and swelling around his anus. Further work-up showed a perineal abscess that was drained by Dr. Ruiz in the emergency department that revealed around 8 mL of pus General surgery was consulted for further evaluation and wound care. Patient will be admitted to the hospital service for the other medical comorbidities. Patient was seen and evaluated in the emergency department room 3 CT scan of the abdomen and pelvis showed: 1. Focal collection in the perineum measuring 8.7 x 2.8 cm. This collection does not contain air. Cannot confirm abscess without IV contrast. Clinically this abscess should be readily visible. 2. Increasing areas of consolidation and pleural thickening at the lung bases, RIGHT greater than LEFT. 3. Cardiomegaly. 4. Study is overall limited by breathing motion artifact. 5. Urinary bladder wall thickening up to 10 mm. Correlate for possible cystitis. Review of Systems General: Reports: 10 or more systems reviewed and unremarkable except in HPI and below Meds/Allergies Home Medications and Allergies Home Medications Medication Instructions Recorded Confirmed Last Taken Type acetaminophen 650 mg PO Q4H PRN #0 10/19/19 09/07/20 12/24/19 18:00 History aspirin 81 mg PO DAILY@08 10/19/19 09/07/20 09/07/20 History bisacodyl 10 mg HI DAILY PRN 10/19/19 09/07/20 12/23/19 08:00 History 10 mg budesonide 2 ml INHALATION BID 10/19/19 09/07/20 09/07/20 History bupropion HCl [Wellbutrin SR] 150 mg PO Q12H 10/19/19 09/07/20 09/07/20 History carvedilol 3.125 mg PO BID@10/19/19 09/07/20 09/07/20 History clopidogrel [Plavix] 75 mg PO DAILY@10/19/19 09/07/20 09/07/20 History insulin lispro [Humalog KwikPen See Rx Instructions .ROUTE .COMPLEX 10/19/19 09/07/20 07/26/20 History Insulin] loratadine 10 mg PO DAILY@10/19/19 09/07/20 09/07/20 History magnesium L-lactate [Magtab] 84 mg PO DAILY@10/19/19 09/07/20 09/07/20 History nitroglycerin 0.4 mg SUBLINGUAL Q5M PRN 10/19/19 09/07/20 Unknown History rosuvastatin [Crestor] 20 mg PO DAILY@10/19/19 09/07/20 09/06/20 History tamsulosin 0.4 mg PO DAILY@10/19/19 09/07/20 09/07/20 History Hair,Skin and Nails 1 tab PO DAILY@12/15/19 09/07/20 09/07/20 History Mucinex DM 1 tab PO BID@12/15/19 09/07/20 09/07/20 History magnesium hydroxide [Milk of 30 ml PO DAILY PRN 12/15/19 09/07/20 Unknown History Magnesia] ondansetron HCl [Zofran] 4 mg PO Q4H PRN 12/15/19 09/07/20 07/26/20 History albuterol sulfate 2.5 mg INHALATION Q4H PRN 03/28/20 09/07/20 09/07/20 History citalopram 20 mg PO DAILY@07/26/20 09/07/20 09/07/20 History pantoprazole 40 mg PO BID@07/26/20 09/07/20 09/07/20 History polyethylene glycol 3350 [Miralax] 17 g PO DAILY@07/26/20 09/07/20 09/07/20 History nicotine (polacrilex) 2 mg BUCCAL Q1H PRN #72 each 07/28/20 09/07/20 Unknown Rx glucagon HCl [Glucagon (HCl) 1 mg SUBCUT Q20M PRN 09/07/20 09/07/20 Unknown History Emergency Kit] insulin glargine [Lantus Solostar 24 unit SUBCUT DAILY@08 09/07/20 09/07/20 09/07/20 History U-100 Insulin] insulin lispro [Humalog Willem 8 unit SUBCUT TID@,,09/07/20 09/07/20 09/07/20 History KwikPen U-100] ipratropium-albuterol 3 ml INHALATION BID@,18 PRN 09/07/20 09/07/20 Unknown History nut.tx,spec.frm,l-fr,iron-fos 1 ea PO BID@,09/07/20 09/07/20 09/07/20 History [TwoCal HN] Allergies Allergy/AdvReac Type Severity Reaction Status Date / Time tramadol Allergy ADR-Vomitin Verified 08/29/20 09:56 g PFSH Acute PFSH: Medical History (Updated 09/08/20 @ 10:36 by Jasbir eWst MD) Abnormal cystoscopy Anxiety BPH (benign prostatic hyperplasia) Chronic systolic CHF (congestive heart failure) CKD stage 3 secondary to diabetes COPD (chronic obstructive pulmonary disease) Coronary artery disease Depression Dysphagia History of urinary retention Hypertension Peripheral vascular disease Type 2 diabetes mellitus Urgency incontinence Surgical History Coronary angioplasty status History of carpal tunnel surgery History of hip surgery S/P bilateral BKA (below knee amputation) S/P right coronary artery (RCA) stent placement Family History Other CAD (coronary artery disease) Diabetes Social History Smoking and tobacco status: current every day smoker cigarettes Packs smoked per day: 0.5 Years cigarettes smoked: 59 Second hand smoke exposure: Yes Alcohol intake: never Lives independently: No 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 Marital status: Current occupational status: retired and disabled History of recent travel: No Current gender identity: Male Vitals/I&O/Wt Last Vital Signs Pulse 92 09/07/20 15:41 Resp 17 09/07/20 15:41 BP 134/79 09/07/20 14:07 Pulse Ox 100 09/07/20 15:41 Weight last 48 hrs Weight 150 lb Physical Exam Narrative: EXAM NARRATIVE: Patient is conscious alert oriented X3 BMI 23 Head and neck examination PERRLA no masses no cervical lymphadenopathy no jaundice Cardiac examination audible S1-S2 no murmurs no gallops no arrhythmias Chest presence of bilateral rhonchi and wheezes Abdomen nontender nondistended soft no organomegaly guarding or rigidity/no signs of peritonitis Right-sided perineal induration and fullness, pack was removed and showed a blood clot but there was no evidence of pus. Status post I&D by the ER team. Wound was repacked again. No evidence of crepitus or signs of Monika gangrene at this point. A&P Assessment and plan (1) Perineal abscess: After history taking physical exam and reviewing the chart and images with my personal interpretation of the CT scan. Broad-spectrum antibiotic Medical management per hospitalist service Follow-up at the wound care center after hospitalization for further care 1-nutrition optimization 2-wound care in the form of daily packing of the wound with wet-to-dry using quarter inch Nu Gauze followed by ABD, because of the wound complexity follow-up is recommended at the wound care center upon discharge. 3-management of medical comorbidities 4-physical therapy consultation when needed 5-assurance and education All questions have been answered and all concerns have been addressed to patient's satisfaction. Status: Acute Consult Attestations Medical Necessity Statement: Inpatient hospitalization for medical and surgical Time Spent in Patient Care: (>than 50% of time spent in counselling and/or direct pt care on unit). Coding Level of Care Code Acute Group Marketing Vp for Pepe Mcfarland Diagnoses Perineal abscess L02.215
[2020-09-07 16:45] LABS: Alanine Aminotransferase 13 U/L (0-41); Albumin Level 2.5 g/dL (3.5-5.2); Alkaline Phosphatase 137 IU/L (40-130); Anion Gap 13.6 (5-19); Aspartate Amino Transferase 11 U/L (0-40); Blood Urea Nitrogen 50 mg/dL (8-23); Calcium 8.9 mg/dL (8.5-10.5); Carbon Dioxide 23 mmol/L (22-29); Chloride 103 mmol/L (98-107); Globulin 4.1 g/dL (1.3-4.6); Glomerular Filtration Rate 23.9 mL/min (90-130); Glucose 326 mg/dL (65-115); Osmolality Calculated 302 mOsm/kg (285-295); Sodium 133 mmol/L (136-145); Total Bilirubin 0.2 mg/dL (0.15-1.2); Total Protein 6.6 g/dL (6.6-8.7)
[2020-09-07 16:47] LABS: Potassium 6.6 mmol/L (3.5-5.1)
--- NOTE | 2020-09-07 18:09 | CTR_ITS ---
PROCEDURE INFORMATION: Exam: CT Chest Without Contrast; Diagnostic Exam date and time: 09/07/2020 6:32 PM Age: 64 years old Clinical indication: Shortness of breath; Patient HX: SOB. Pneumonia; Additional info: Rll pna TECHNIQUE: Imaging protocol: Diagnostic computed tomography of the chest without contrast. Radiation optimization: All CT scans at this facility use at least one of these dose optimization techniques: automated exposure control; mA and/or kV adjustment per patient size (includes targeted exams where dose is matched to clinical indication); or iterative reconstruction. COMPARISON: CT angio chest PE protcl [id number] 07/26/2020 3:06 PM RADIATION DOSE METRICS: Total DLP (mGy-cm): 872.72 FINDINGS: Lungs: Diffuse airspace infiltrate throughout the right lower lobe, consistent with pneumonia. Virtual complete atelectasis of the right middle lobe. Mild prominence of the pulmonary interstitium bilaterally, suggesting interstitial pulmonary edema. Scattered calcified lung nodules. Pleural space: Bilateral pleural effusions, right larger than left. Heart: Cardiomegaly is present. No pericardial effusion. Aorta: Atherosclerosis of the aorta. No aortic aneurysm. Lymph nodes: Multiple calcified lymph nodes in the mediastinum and bilateral dona. Bones/joints: Mild degenerative spine changes. No acute osseous abnormality. Soft tissues: The soft tissues appear unremarkable. CT/CT chest wo con [id number] IMPRESSION: 1. Diffuse airspace infiltrate throughout the right lower lobe, consistent with pneumonia. This has worsened when compared to 07/26/2020. 2. Virtual complete atelectasis of the right middle lobe. This is new when compared to the previous study. 3. Mild prominence of the pulmonary interstitium bilaterally, suggesting interstitial pulmonary edema. 4. Bilateral pleural effusions, right larger than left. This is new when compared to the previous study. 5. Changes of old granulomatous disease are identified. 6. Cardiomegaly is present. No pericardial effusion. Radiation Dose CTDIVOL = (mGy): DLP = 872.72 (mGy-cm)
[2020-09-07 19:01] LABS: Glucose Point of Care 226 mg/dL (70-110)
[2020-09-07 19:16] LABS: LAB Peripheral Smear Sent for Review
--- NOTE | 2020-09-07 19:24 | PC.NURSE ---
Nurse adinistered 10 unites of insulin due to high potassium. Nurse held sliding scale insulin per dr harper.
[2020-09-07] MEDS: calcium gluconate 0.1 gm/mL 10% SDV 10mL 1 GM IVP (19:34)
[2020-09-07 19:58] LABS: Ammonia 25 umol/L (16-60); Troponin(5th) Baseline 75 ng/L (0-15)
[2020-09-07] MEDS: ipratropium-albuterol 3 mL Neb INHALATION ×2 (20:06→23:25)
[2020-09-07] MEDS: budesonide 0.5 mg/2 mL Neb INHALATION (20:06)
[2020-09-07 20:09] LABS: Procalcitonin 0.12 ng/mL (0-0.5)
[2020-09-07 20:20] LABS: Alanine Aminotransferase 12 U/L (0-41); Albumin Level 2.6 g/dL (3.5-5.2); Alkaline Phosphatase 131 IU/L (40-130); Anion Gap 14.2 (5-19); Aspartate Amino Transferase 9 U/L (0-40); Blood Urea Nitrogen 51 mg/dL (8-23); C Reactive Protein 89.3 mg/L (0.0-4.9); Calcium 8.7 mg/dL (8.5-10.5); Carbon Dioxide 22 mmol/L (22-29); Chloride 103 mmol/L (98-107); Globulin 3.8 g/dL (1.3-4.6); Glucose 229 mg/dL (65-115); Osmolality Calculated 297 mOsm/kg (285-295); Potassium 6.2 mmol/L (3.5-5.1); Sodium 133 mmol/L (136-145); Total Bilirubin 0.2 mg/dL (0.15-1.2); Total Protein 6.4 g/dL (6.6-8.7)
[2020-09-07 20:47] LABS: Iron 11 ug/dL (59-158); Total Iron Binding Capacity 157 mcg/dl; Unsaturated Iron Binding 146 ug/dL (112-347)
[2020-09-07 20:55] LABS: Ferritin 169 ng/mL (30-400)
[2020-09-07] MEDS: atorvastatin 40 mg Tablet 80 MG PO (21:01)
[2020-09-07] MEDS: sucralfate 1 gm Tablet PO (21:01)
[2020-09-07] MEDS: heparin 5,000 unit/mL INJ 1 mL 5000 UNIT SUBCUT (21:02)
[2020-09-07] MEDS: sodium polystyrene sulfonate 15 gm/60 mL Btl PO (21:02)
[2020-09-07] MEDS: carvedilol 3.125 mg Tablet PO (21:06)
[2020-09-07] MEDS: pantoprazole DR 40 mg Tablet PO (21:07)
[2020-09-07] MEDS: FUROsemide 10 mg/mL SDV 4mL 40 MG IVP (21:07)
[2020-09-07] MEDS: azithromycin 500 MG in sodium chloride 0.9% 250 ML 250 MG IV (21:08)
[2020-09-07 21:10] LABS: Vitamin B12 609 pg/mL (232-1245)
[2020-09-07 21:11] LABS: Folate Level 12.7 ng/mL (4.5-32.2)
--- NOTE | 2020-09-07 21:28 | ECG_ITS ---
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 Measurements Intervals [place] Rate: 96 P: 68 KS: 175 QRS: 21 QRSD: 101 T: 115 QT: 363 QTc: 459 Interpretive Statements SINUS RHYTHM POSSIBLE ANTERIOR MYOCARDIAL INFARCTION [30 ms Q WAVE IN V3/V4, OR R < 0.2 mV IN V4], OF INDETERMINATE AGE INFERIOR MYOCARDIAL INFARCTION [40+ ms Q WAVE AND/OR ST/T ABNORMALITY IN II/aVF], OF INDETERMINATE AGE INTERPRETATION BASED ON A DEFAULT AGE OF 40 YEARS Compared to ECG 09/07/2020 14:22:41 Sinus tachycardia no longer present Myocardial infarct finding still present Electronically Signed On 09-08-2020 22:52:46 [employer]LOOR RUNNER by Rosa Wiggins M.D. [id number] f
[2020-09-07 21:33] LABS: NT Pro B Type Natriuretic Pept 14658 pg/mL (0-125)
[2020-09-07 22:00] LABS: Troponin 5 2HR 78.18 ng/L (0-15); Troponin 5 2HR Delta 3.18 ABS# (0-10)
[2020-09-07] MEDS: piperacillin-tazobactam 3.375 GM in sodium chloride 0.9% (plus) 50 ML IV (22:47)
[2020-09-08] VITALS (35 sets, daily range): BP systolic 110–141; BP diastolic 49–79; PULSE 86–105; RESP 12–20; TEMP 36.6–36.9; O2SAT 91–100
[2020-09-08 00:33] LABS: Glucose Point of Care 139 mg/dL (70-110)
[2020-09-08] MEDS: sodium polystyrene sulfonate 15 gm/60 mL Btl PO ×4 (01:21→21:46)
[2020-09-08 01:23] LABS: Troponin 5 6HR 78.28 ng/L (0-15); Troponin 5 6HR Delta 3.28 ng/L (0-12)
[2020-09-08] MEDS: ipratropium-albuterol 3 mL Neb INHALATION ×6 (03:17→23:29)
[2020-09-08 04:52] LABS: Basophils % 0.3 %; Eosinophils % 0.1 %; Hemoglobin 7.7 g/dL (11.7-16.6); Lymphocytes # 0.9 10^3/uL (0.8-4.8); Lymphocytes % 6.8 %; Mean Corpuscular HGB Conc 29.6 g/dL (30.0-36.0); Mean Corpuscular Hemoglobin 27.4 pg (28.0-34.0); Mean Corpuscular Volume 92.5 fL (80-94); Mean Platelet Volume 9.2 fL (7.4-10.4); Monocytes # 0.3 10^3/uL (0.2-0.9); Neutrophils # 11.79 10^3/uL (1.8-7.7); Neutrophils % 86.5 %; Nucleated Red Blood Cells % 0 %; Platelet Count 640 10^3/cmm (130-400); Red Blood Count 2.81 10^6/uL (4.1-5.3); Red Cell Distribution Width 15.2 % (12.1-15.1); White Blood Count 13.6 10^3/uL (4.0-10.0)
[2020-09-08] MEDS: pantoprazole DR 40 mg Tablet PO ×2 (05:03→19:01)
[2020-09-08 05:08] LABS: Blood Gas Sample Site Brachial, left; Blood Gas Sample Type Arterial
[2020-09-08 05:26] LABS: Lactate (Lactic Acid level) 1.1 mmol/L (0.5-2.2)
[2020-09-08 05:31] LABS: Alanine Aminotransferase 10 U/L (0-41); Albumin Level 2.4 g/dL (3.5-5.2); Alkaline Phosphatase 124 IU/L (40-130); Anion Gap 14.7 (5-19); Aspartate Amino Transferase 9 U/L (0-40); Blood Urea Nitrogen 49 mg/dL (8-23); C Reactive Protein 84.2 mg/L (0.0-4.9); Carbon Dioxide 24 mmol/L (22-29); Chloride 104 mmol/L (98-107); Globulin 3.9 g/dL (1.3-4.6); Glomerular Filtration Rate 23.9 mL/min (90-130); Glucose 271 mg/dL (65-115); Magnesium 2.3 mg/dL (1.7-2.3); Osmolality Calculated 307 mOsm/kg (285-295); Phosphorus 4.3 mg/dL (2.5-4.5); Potassium 5.7 mmol/L (3.5-5.1); Sodium 137 mmol/L (136-145); Total Bilirubin 0.2 mg/dL (0.15-1.2); Total Protein 6.3 g/dL (6.6-8.7)
[2020-09-08] MEDS: FUROsemide 10 mg/mL SDV 4mL 40 MG IVP ×3 (05:37→16:42)
[2020-09-08 05:56] LABS: NT Pro B Type Natriuretic Pept 14850 pg/mL (0-125); Procalcitonin 0.13 ng/mL (0-0.5)
[2020-09-08 06:07] LABS: Thyroid Stimulating Hormone 2.06 uIU/mL (0.27-4.20)
[2020-09-08] MEDS: piperacillin-tazobactam 3.375 GM in sodium chloride 0.9% (plus) 50 ML IV ×2 (06:18→15:27)
[2020-09-08] MEDS: sucralfate 1 gm Tablet PO ×2 (06:18→17:41)
[2020-09-08 06:56] LABS: Estmated Average Glucose 203; Hemoglobin A1C 8.7 % (4.0-6.0)
--- NOTE | 2020-09-08 07:00 | XR_ITS ---
WS: [id number] XR chest 1V portable [id number] REASON FOR EXAM: sob FINDINGS: Some clearing of the opacification of the right lower hemithorax compared to the examination of 09/07. Decrease in the right pleural effusion. Left lower lung field infiltrative changes and atelectasis are unchanged. Left pleural effusion uncha nged. No new findings. XR/XR chest 1V portable [id number] IMPRESSION: Decreased opacification in the left lower lung field likely represents some res olution of fluid from the interlobar fissure of the right lung. There is still significant interstitial and airspace infiltrate in the right lower lung.
[2020-09-08] MEDS: budesonide 0.5 mg/2 mL Neb INHALATION ×2 (07:36→20:12)
[2020-09-08 08:14] LABS: Glucose Point of Care 322 mg/dL (70-110)
[2020-09-08] MEDS: insulin glargine 100 units/1 mL 24 UNIT SUBCUT (08:28)
[2020-09-08] MEDS: buPROPion SR (12 HR) 150 mg Tablet PO ×2 (08:30→21:46)
[2020-09-08] MEDS: carvedilol 3.125 mg Tablet PO ×2 (08:30→21:45)
[2020-09-08] MEDS: magnesium lactate 84 mg Tablet PO (08:30)
[2020-09-08] MEDS: tamsulosin 0.4 mg Capsule PO (08:31)
[2020-09-08] MEDS: aspirin 81 mg EC Tablet PO (08:31)
[2020-09-08] MEDS: loratadine 10 mg Tablet PO (08:31)
[2020-09-08] MEDS: citalopram 20 mg Tablet PO (08:31)
[2020-09-08] MEDS: ferrous sulfate EC 325 mg Tablet PO ×2 (08:31→17:41)
[2020-09-08] MEDS: metOLazone 5 MG Tablet 10 MG PO (08:33)
[2020-09-08] MEDS: polyethylene glycol 3350 Pkt 17 gm PO (08:34)
--- NOTE | 2020-09-08 10:19 | P.PN_ITS ---
Subjective Subjective: Interval history: This morning patient was examined, he is lying in bed, complains of some shortness of breath, no chest pain, no lightheadedness, no dizziness, no nausea, no vomiting, has some pain in the rectal abscess drainage site Vitals/I&O/Wt Last Vital Signs Temp 98.5 F 09/08/20 00:00 Pulse 104 H 09/08/20 07:41 Resp 20 H 09/08/20 07:41 BP 129/64 09/08/20 04:00 Pulse Ox 98 09/08/20 07:41 09/07/20 09/08/20 09/08/20 22:59 06:59 14:59 Intake Total 200 / 200 150 / 350 Output Total 100 / 100 25 / 125 Balance 100 / 100 125 / 225 Weight last 48 hrs Weight 68.039 kg Physical Exam Const: COMMON NORMALS: no acute distress and patient oriented x3 HENMT: COMMON NORMALS: normocephalic HEAD & SCALP: normocephalic Neck/C-Spine: COMMON NORMALS: no JVD Resp: COMMON NORMALS: normal respiratory effort, No retractions and No use of accessory muscles AUSCULTATION: crackles and wheezes Cardio: COMMON NORMALS: no JVD, regular rate, regular rhythm, S1 normal heart sound present and S2 normal heart sound present RATE: regular rate RHYTHM: regular rhythm HEART SOUNDS: S1 normal heart sound present and S2 normal heart sound present GI: COMMON NORMALS: Normal to inspection, nondistended, normoactive bowel sounds present, Soft to palpation, non-tender, No hepatosplenomegaly present, no masses and no bruits PALPATION: Yes Soft to palpation and Yes No hepatospleno megaly present Extremity: NARRATIVE EXTREMITY EXAM: Bilateral BKA Neuro: COMMON NORMALS: patient oriented x3 Psych: COMMON NORMALS: mental status grossly normal Urinary Catheter Management^: Mejia: Cath Placed During This Visit: yes Urinary Catheter Date of Insertion: 09/08/20 Urinary Catheter Time of Insertion: 09:30 Data : 09/08/20 04:35 09/08/20 04:35 Micro: Microbiology 09/08/20 01:30 Bacterial Antigens - Final Urine,Voided 09/07/20 21:34 Blood Culture - Preliminary Blood SPECIMEN COLLECTED 09/07/20 18:57 Blood Culture - Preliminary Blood SPECIMEN COLLECTED A&P Assessment and plan (1) Acute respiratory failure with hypoxia: -Secondary to healthcare associated pneumonia, likely aspiration pneumonia/pneumonitis, CHF exacerbation, COPD -Recent hospital admission for pneumonia, chest x-ray shows bilateral pleural effusions,, pulmonary edema, pneumonitis, right middle lobe and right lower lobe pneumonia -Patient has had multiple swallow eval's in the past, with evidence of aspiration -BNP 30001 -Troponin 75, 6-hour 78.28, delta 3.28 -CT chest shows: 1. Diffuse airspace infiltrate throughout the right lower lobe, consistent with pneumonia. This has worsened when compared to 07/26/2020. 2. Virtual complete atelectasis of the right middle lobe. This is new when compared to the previous study. 3. Mild prominence of the pulmonary interstitium bilaterally, suggesting interstitial pulmonary edema. 4. Bilateral pleural effusions, right larger than left. This is new when compared to the previous study. 5. Changes of old granulomatous disease are identified. 6. Cardiomegaly is present. No pericardial effusion. -ABG this morning shows mixed respiratory and metabolic acidosis, lactic acid 1.1, Plan: -Repeat ABG in the afternoon -For mixed respiratory and metabolic acidosis, we will give an amp of bicarb, continue BiPAP during the day -Sputum cultures, blood cultures, urine bacterial antigens -Echocardiogram pending -Telemetry monitoring -Continue 2 L nasal cannula, BiPAP during the day, BiPAP schedule during the night -Broad-spectrum antibiotic therapy vancomycin, Zosyn and azithromycin -Solu-Medrol 40 every 8 hours, DuoNebs every 4 hours -Lasix 40 mg IV every 8 hours, metolazone 10 mg daily -Monitor creatinine, monitor urine output closely -Has had a bronchoscopy for recurrent pneumonias in right middle lobe, which has been unremarkable, has chronic right middle lobe atelectasis secondary to adenop athy, negative for postobstructive in the past -Discussed the case with Dr. Berger, reviewed the films, repeat chest x-ray tomorrow morning, if pleural effusion still present, will perform thoracocentes is -Patient is DNR/DNI -Heparin for DVT prophylaxis on hold given anemia Status: Acute (2) CAD (coronary artery disease): #1 Left main is normal #2 LAD has luminal irregularities a patent previously placed stent #3 LCx is small nondominant vessel without significant stenosis #4 RCA has anterior takeoff difficult to engage AL-1 catheter was used it is a diffusely diseased vessel with multiple stents proximal RCA has 90% stenosis mid to distal RCA into PDA and PLB bifurcation has 60-70% tandem stenosis. It is the culprit vessel Successful PCI to proximal RCA and balloon angioplasty to mid to distal RCA Plan: -Continue aspirin, Plavix on hold, statin, Coreg -Serial troponins, serial EKGs Status: Acute (3) Rectal abscess: -Status post incision and drainage by ER -Surgery has been consulted by ER physician -On broad-spectrum antibiotic therapy as above -Surgery on consult Status: Acute (4) Acute hyperkalemia: -Potassium 5.7 -History of acute on chronic hyperkalemia -Received insulin, D50, calcium gluconate -On Lasix therapy -Repeat CMP at 6 PM -Kayexalate -telemetry monitoring Status: Acute (5) Acute on chronic renal failure: -History of CKD stage III -On last admission, month ago, had acute renal failure, creatinine as high as 6, requiring dialysis, dialysis catheter removed -Currently creatinine is 2.7 -I am suspecting that it is likely secondary to cardiorenal syndrome some hypovolemia -Carefully diuresis -Monitor creatinine, monitor urine output Status: Acute (6) COVID-19: -No significant COVID-19 symptoms Status: Acute (7) Chronic systolic CHF (congestive heart failure): -echo 07/2020 LV systolic function is severely reduced with EF of 30 to 35%. Regional wall motion abnormalities cannot be assessed because of limited visualization. Diastolic function is abnormal. Valvular structures are not completely assessed because of limited echocardiogram. Compared to prior study from 12/26/2019, no significant changes are noted. -We will repeat echocardiogram Status: Acute (8) S/P bilateral BKA (below knee amputation): -Secondary to severe peripheral vascular disease, vasculopathy, diabetes Status: Chronic (9) Type 2 diabetes mellitus: -Continue sliding scale, Lantus 24 units daily Status: Chronic (10) Peripheral vascular disease: Aspirin, statin, Plavix Status: Chronic (11) Hypertension: Status: Chronic (12) CKD stage 3 secondary to diabetes: Status: Chronic (13) COPD (chronic obstructive pulmonary disease): Status: Chronic (14) Acute on chronic anemia: -Hemoglobin 7.7 -Likely multifactorial from pneumonia, CKD, slow GI bleed -Monitor hemoglobin closely, monitor hemodynamics -Iron low at 11, ferritin 169, folate within normal limits, B12 within normal limits -Protonix 40 twice daily, carafate -Hold Plavix, hold heparin -We will transfuse if hemoglobin drops below 7, repeat at 4 PM Status: Acute (15) Acidosis: Status: Acute (16) Thrombocytosis: -Likely secondary to infection, chronic hypoxia -Will do peripheral smear Status: Acute Attestations Medical Necessity Statement*: Patient requires hospitalization for acute respiratory failure secondary to healthcare associated pneumonia, recurrent aspi ration, CHF, right pleural effusion, anemia, thrombocytosis, acute renal failure Time Spent in Patient Care: Greater than 35 minutes (>than 50% of time spent in counselling and/or direct pt care on unit) . Critical Care Time: Critical Care Time (min): 35 Coding Level of Care Code Acute Filter Bed Placer for [facility] Fwd Exam Detailed Diagnoses Acute respiratory failure with hypoxia J96.01 CAD (coronary artery disease) I25.10 Rectal abscess K61.1 Acute hyperkalemia E87.5 Acute on chronic renal failure N17.9; N18.9 COVID-19 U07.1 Chronic systolic CHF (congestive heart failure) I50.22 S/P bilateral BKA (below knee amputation) Z89.512; Z89.511 Type 2 diabetes mellitus E11.9 Peripheral vascular disease I73.9 Hypertension I10 CKD stage 3 secondary to diabetes E11.22; N18.3 COPD (chronic obstructive pulmonary disease) J44.9 Acute on chronic anemia D64.9 Acidosis E87.2 Thrombocytosis D47.3
[2020-09-08 10:26] LABS: Add Urine Culture? Yes; Add Urine Microscopic? YES; Bacteria Urine 1+ /hpf; Bilirubin Urine Neg (Negative); Blood Urine 3+ (Negative); Glucose Urine UA Norm (Normal); Ketones Urine Negative (Negative); Leukocyte Esterase Urine 2+ (Negative); Mucus Urine TRACE /hpf; Nitrate Urine Negative (Negative); Protein Urine 1+ (Negative); RBC Urine 25-40 /hpf (0-2); Specific Gravity, Urine 1.015 (1.005-1.030); Squamous Epithelial Cell Urine 0-4 /hpf (0-5); Urine Appearance Cloudy (CLEAR); Urine Color Yellow (Yellow); Urobilinogen Urine Norm (Negative); WBC Urine >100 /hpf (0-5)
[2020-09-08 10:54] LABS: LAB Peripheral Smear Sent for Review
[2020-09-08 11:11] LABS: ABG PCO2 37.4 mmHg (35-45); ABG PH Result 7.41 (7.35-7.45); Arterial Blood Gas Hematocrit 24.9 % (42-52); Base Excess ABG -0.8 mmol/L (-2.0-2.0); HCO3 ABG 23.7 mmol/L (22-26); Oxygen Device ROOM AIR
[2020-09-08] MEDS: sodium bicarbonate 8.4% 1 mEq/mL 50mL Syr 50 MEQ IVP (11:20)
[2020-09-08 11:38] LABS: Glucose Point of Care 374 mg/dL (70-110)
--- NOTE | 2020-09-08 12:48 | PC.CHAP ---
Pastoral Care Encounter/Spiritual Assessment Type of Contact [] Declined refrigeration specialist visit [] Patient/Family/Request visit [] Outpatient visit [] Follow-up visit [] Physician referral [] Code/Alert [] Routine visit [] Staff referral [] Actively dying [] Patient sleeping [] Family support [] [] Out of room [] Palliative care [] [] Receiving care in room [] Pre-surgical visit [] Trauma [] Long length of stay [x] ICU visit [] Other: Relational/Emotional Strength [] Patient feels connected with others/family/visitors/staff [] Distress [] Loneliness/isolation [] Abandonment Spirituality of Patient [] Person of Jodi [] Attends Mandaen of their Jodi [] Believes in Prayer [] Reads Bible or Rastafari materials [] There are Spiritual issues to be addressed Meter Changes Records Clerk Interventions [x] Prayer [] Active listening [] Non-anxious presence [] Spiritual/emotional support [] Crisis/trauma care [] Spiritual counseling [] Bereavement support [] Provided bereavement packet [] Provided Bible/devotional materials [] Provided toy/stuffed animal, coloring book to patient or family member [] Provided Communion [] Anointing/[place] [] Salvation [x] Completed spiritual assessment [] Other: Impact on Illness or Injury [] Angry [] Fearful [] Anxious [] Often cries [] Exhaustion [] Unable to work [] Unable to attend samaritan [] Unable to walk/stand [] Unable to read [] Unable to drive [] Unable to eat/drink [] Unable to sleep [] Unable to be with family [] Patient intubated [] Other: Summary Time spent with patient
[2020-09-08 16:38] LABS: Basophils % 0.3 %; Hematocrit 28.1 % (42.0-52.0); Hemoglobin 8.5 g/dL (11.7-16.6); Lymphocytes # 0.9 10^3/uL (0.8-4.8); Mean Corpuscular HGB Conc 30.2 g/dL (30.0-36.0); Mean Corpuscular Hemoglobin 27.7 pg (28.0-34.0); Mean Corpuscular Volume 91.5 fL (80-94); Mean Platelet Volume 9.4 fL (7.4-10.4); Monocytes # 0.5 10^3/uL (0.2-0.9); Neutrophils # 13.44 10^3/uL (1.8-7.7); Neutrophils % 88.1 %; Nucleated Red Blood Cells % 0 %; Platelet Count 703 10^3/cmm (130-400); Red Blood Count 3.07 10^6/uL (4.1-5.3); Red Cell Distribution Width 15.3 % (12.1-15.1); White Blood Count 15.2 10^3/uL (4.0-10.0)
[2020-09-08] MEDS: vancomycin 750 MG in sodium chloride 0.9% 250 ML 250 MG IV (16:40)
[2020-09-08 17:30] LABS: Glucose Point of Care 386 mg/dL (70-110)
--- NOTE | 2020-09-08 18:09 | USCV_ITS ---
Tashi Cole Age: 64 Gender: M : 1955 Exam Date: 09/08/2020 05:59 Ordering Phys: Jasbir West MD Technologist: Nadya Mclean Exam Location: [facility] – [place] Indication: SOB BP: 139 / 79 HR: 99 Rhythm: Sinus Technical Quality: Good MEASUREMENTS (Male / Female) Normal Values 2D ECHO LV Diastolic Diameter PLAX 5.7 cm 4.2 - 5.9 / 3.9 - 5.3 cm LV Systolic Diameter PLAX 4.8 cm IVS Diastolic Thickness 0.9 cm 0.6 - 1.0 / 0.6 - 0.9 cm IVS Systolic Thickness 1.2 cm LVPW Diastolic Thickness 1.1 cm 0.6 - 1.0 / 0.6 - 0.9 cm LVPW Systolic Thickness 1.3 cm LVOT Diameter 2.0 cm LV Ejection Fraction 2D Teich 32.2 % LV Ejection Fraction MOD 2C 23.3 % LV Ejection Fraction 2C AL 24.3 % LA Diameter 3.8 cm LA Width 4.6 cm LA Height 5.9 cm RA Width 3.4 cm RA Height 4.4 cm Aorta at Sinotubular Diameter 2.3 cm M-MODE LV Diastolic Diameter MM 6.1 cm 4.2 - 5.9 / 3.9 - 5.3 cm LV Systolic Diameter MM 5.2 cm LV Ejection Fraction MM Teich 29.0 % IVS Diastolic Thickness MM 1.0 cm 0.6 - 1.0 / 0.6 - 0.9 cm IVS Systolic Thickness MM 1.4 cm LVPW Diastolic Thickness MM 1.3 cm 0.6 - 1.0 / 0.6 - 0.9 cm LVPW Systolic Thickness MM 1.6 cm RV Diastolic Diameter MM 1.5 cm Aortic Annulus Diameter 3.4 cm LA Ao Ratio MM 1.2 MV E Point Septal Separation 2.7 cm DOPPLER AV Peak Velocity 184.0 cm/s LVOT Peak Velocity 83.0 cm/s AV Area Cont Eq vti 1.2 cm squared AV Area Cont Eq pk 1.5 cm squared MV Area PHT 5.0 cm squared Mitral E to A Ratio 1.3 MV E' Velocity 55.5 cm/s Mitral E to MV E' Ratio 18.5 Mitral E to LV E' Lateral Ratio 14.6 Mitral E to LV E' Septal Ratio 25.3 TR Peak Velocity 142.0 cm/s TR Peak Gradient 8.1 mmHg TV Peak E Velocity 124.0 cm/s Right Atrial Pressure 3.0 mmHg Pulmonary Artery Systolic Pressu 11.1 mmHg FINDINGS Left Ventricle Diffuse hypokinesia left ventricular ejection fraction of 25 to 30%. Mildly dilated LV cavity Right Ventricle Normal LV size and ejection fraction Right Atrium Possibly of normal size Left Atrium Mildly increased left atrial size. Mitral Valve Mild mitral valve regurgitation. Thickened mitral valve. Moderate mitral annular calcification. Aortic Valve Trace aortic valve regurgitation. Tricuspid Valve Thickened tricuspid valve. Pulmonic Valve Pulmonic valve not well visualized. Pericardium No pericardial effusion. Aorta Normal aortic annulus size. CONCLUSIONS Diffuse hypokinesia left ventricular ejection fraction of 25 to 30%. Mildly dilated LV cavity. Mildly increased left atrial size. Mild mitral valve regurgitation. Thickened mitral valve. Moderate mitral annular calcification. Trace aortic valve regurgitation. Trace aortic valve regurgitation. Thickened tricuspid valve. Compared to the study from 07/27/2020, there is slight worsening of the LV systolic function Dr Rosa Wiggins MD FAC (Electronically Signed) Final Date: 08 September 2020 15:17 S
[2020-09-08] MEDS: azithromycin 500 MG in sodium chloride 0.9% 250 ML 250 MG IV (21:45)
[2020-09-08] MEDS: atorvastatin 40 mg Tablet 80 MG PO (21:45)
[2020-09-09] VITALS (36 sets, daily range): BP systolic 102–140; BP diastolic 56–76; PULSE 80–104; RESP 10–22; TEMP 36.9; O2SAT 79–98
[2020-09-09 00:04] LABS: Glucose Point of Care 219 mg/dL (70-110)
[2020-09-09] MEDS: FUROsemide 10 mg/mL SDV 4mL 40 MG IVP ×4 (00:14→23:23)
[2020-09-09] MEDS: piperacillin-tazobactam 3.375 GM in sodium chloride 0.9% (plus) 50 ML IV ×4 (00:15→23:23)
[2020-09-09] MEDS: ipratropium-albuterol 3 mL Neb INHALATION ×6 (03:37→23:41)
[2020-09-09 04:36] LABS: ABG PCO2 42.3 mmHg (35-45); ABG PH Result 7.47 (7.35-7.45); Arterial Blood Gas Hematocrit 26.6 % (42-52); Base Excess ABG 6.7 mmol/L (-2.0-2.0); Blood Gas Sample Site Brachial, left; Blood Gas Sample Type Arterial; Oxygen Device BIPAP; PO2 ABG 75.3 mmHg (80.0-100.0)
[2020-09-09 04:50] LABS: INR 1.22 (0.8-1.2)
[2020-09-09 04:59] LABS: Lactate (Lactic Acid level) 1.4 mmol/L (0.5-2.2)
[2020-09-09 05:05] LABS: Alanine Aminotransferase 13 U/L (0-41); Albumin Level 2.6 g/dL (3.5-5.2); Alkaline Phosphatase 126 IU/L (40-130); Anion Gap 19.1 (5-19); Aspartate Amino Transferase 10 U/L (0-40); Blood Urea Nitrogen 51 mg/dL (8-23); Calcium 9.1 mg/dL (8.5-10.5); Carbon Dioxide 26 mmol/L (22-29); Chloride 102 mmol/L (98-107); Globulin 4.2 g/dL (1.3-4.6); Glucose 171 mg/dL (65-115); Magnesium 2.2 mg/dL (1.7-2.3); Osmolality Calculated 314 mOsm/kg (285-295); Phosphorus 4.9 mg/dL (2.5-4.5); Potassium 4.1 mmol/L (3.5-5.1); Sodium 143 mmol/L (136-145); Total Bilirubin 0.2 mg/dL (0.15-1.2); Total Protein 6.8 g/dL (6.6-8.7)
[2020-09-09 05:11] LABS: NT Pro B Type Natriuretic Pept 16087 pg/mL (0-125); Procalcitonin 0.11 ng/mL (0-0.5)
[2020-09-09] MEDS: pantoprazole DR 40 mg Tablet PO ×2 (05:54→17:39)
[2020-09-09] MEDS: sucralfate 1 gm Tablet PO ×2 (05:55→17:39)
--- NOTE | 2020-09-09 06:00 | XR_ITS ---
WS: [id number] XR chest 1V portable [id number] REASON FOR EXAM: sob FINDINGS: The abnormalities in the left lower hemithorax continue to resolve compared to the previous examinati on of 09/08/2020. No new findings are noted. XR/XR chest 1V portable [id number] IMPRESSION: Resolving airspace and interstitial infiltrative changes right lower lung as we ll as resolving right pleural effusion.
--- NOTE | 2020-09-09 06:55 | PC.NURSE ---
ASSUMING CARE Patient laying in bed on 2L NC with oxygen saturation in the upper 90s. Patient denies any pain, day shift nurse reports just changing perineal dressing. Patient alert and oriented x 4, but is sleepy he expresses. No needs at this time.
--- NOTE | 2020-09-09 06:56 | PC.NURSE ---
BIPAP Patient wore BIPAP this shift while sleeping and was on 21% with pressures only per respiratory therapist. Patient appeared to have rested well this shift.
--- NOTE | 2020-09-09 06:59 | PC.NURSE ---
SHIFT SUMMARY Patient on BIPAP all night, see previous note. Patient denied any pain this shift, perineal wound unpacked, cleaned, and redressed. When previous packing pulled out patient began to bleed as well as with cleaning with normal saline. When clean packing being placed, patient also began to bleed. ABD cut to fit patients wound and covered with covaderm to stick to skin. Small bowel movement. 1300 mL urine output.
[2020-09-09 08:20] LABS: Glucose Point of Care 208 mg/dL (70-110)
[2020-09-09] MEDS: budesonide 0.5 mg/2 mL Neb INHALATION ×2 (08:20→20:29)
[2020-09-09] MEDS: buPROPion SR (12 HR) 150 mg Tablet PO ×2 (09:07→20:50)
[2020-09-09] MEDS: magnesium lactate 84 mg Tablet PO (09:07)
[2020-09-09] MEDS: aspirin 81 mg EC Tablet PO (09:07)
[2020-09-09] MEDS: citalopram 20 mg Tablet PO (09:08)
[2020-09-09] MEDS: loratadine 10 mg Tablet PO (09:08)
[2020-09-09] MEDS: ferrous sulfate EC 325 mg Tablet PO ×2 (09:08→17:39)
[2020-09-09] MEDS: carvedilol 3.125 mg Tablet PO ×2 (09:09→20:50)
[2020-09-09] MEDS: tamsulosin 0.4 mg Capsule PO (09:09)
[2020-09-09] MEDS: insulin glargine 100 units/1 mL 24 UNIT SUBCUT (09:10)
[2020-09-09] MEDS: polyethylene glycol 3350 Pkt 17 gm PO (09:12)
--- NOTE | 2020-09-09 09:15 | PC.CHAP ---
Pastoral Care Encounter/Spiritual Assessment Type of Contact [] Declined application integration specialist visit [] Patient/Family/Request visit [] Outpatient visit [] Follow-up visit [] Physician referral [] Code/Alert [] Routine visit [] Staff referral [] Actively dying [] Patient sleeping [] Family support [] [] Out of room [] Palliative care [] [] Receiving care in room [] Pre-surgical visit [] Trauma [] Long length of stay [x] ICU visit [] Other: Relational/Emotional Strength [] Patient feels connected with others/family/visitors/staff [] Distress [] Loneliness/isolation [] Abandonment Spirituality of Patient [] Person of Jodi [] Attends Scientologist of their Jodi [] Believes in Prayer [] Reads Bible or Baptist materials [] There are Spiritual issues to be addressed Vision Teacher Interventions [x] Prayer [] Active listening [] Non-anxious presence [] Spiritual/emotional support [] Crisis/trauma care [] Spiritual counseling [] Bereavement support [] Provided bereavement packet [] Provided Bible/devotional materials [] Provided toy/stuffed animal, coloring book to patient or family member [] Provided Communion [] Anointing/Zebulon [] Salvation [x] Completed spiritual assessment [] Other: Impact on Illness or Injury [] Angry [] Fearful [] Anxious [] Often cries [] Exhaustion [] Unable to work [] Unable to attend religion [] Unable to walk/stand [] Unable to read [] Unable to drive [] Unable to eat/drink [] Unable to sleep [] Unable to be with family [] Patient intubated [] Other: Summary Time spent with patient
[2020-09-09] MEDS: metOLazone 5 MG Tablet 10 MG PO (09:18)
--- NOTE | 2020-09-09 10:40 | P.PN_ITS ---
Subjective Subjective: Interval history: This morning patient was examined, tells me that he is feeling better no fevers, no cough, no lightheadedness, no dizziness, no nausea, no vomiting, no chest pain Vitals/I&O/Wt Last Vital Signs Temp 98 F 09/08/20 11:37 Pulse 97 09/09/20 08:23 Resp 16 09/09/20 08:21 BP 129/75 09/09/20 08:00 Pulse Ox 97 09/09/20 08:21 09/08/20 09/09/20 09/09/20 22:59 06:59 14:59 Intake Total 1520 / 1570 50 / 1620 Output Total 750 / 1550 1300 / 2850 720 / 720 Balance 770 / 20 -1250 / -1230 -720 / -720 Weight last 48 hrs Weight 62.777 kg Weight 68.039 kg Physical Exam Const: COMMON NORMALS: no acute distress and patient oriented x3 Neck/C-Spine: COMMON NORMALS: no JVD Resp: COMMON NORMALS: normal respiratory effort, No retractions, No use of accessory muscles and clear to auscultation bilaterally AUSCULTATION: clear to auscultation bilaterally Cardio: COMMON NORMALS: no JVD, regular rate, regular rhythm, S1 normal heart sound present and S2 normal heart sound present RATE: regular rate RHYTHM: regular rhythm HEART SOUNDS: S1 normal heart sound present and S2 normal heart sound present GI: COMMON NORMALS: Normal to inspection, nondistended, normoactive bowel sounds present, Soft to palpation, non-tender, No hepatosplenomegaly present, no masses and no bruits PALPATION: Yes Soft to palpation and Yes No hepatosplenomegaly present Extremity: NARRATIVE EXTREMITY EXAM: Bilateral below-knee amputations Neuro: COMMON NORMALS: patient oriented x3 Psych: COMMON NORMALS: mental status grossly normal Urinary Catheter Management^: Mejia: Cath Placed During This Visit: yes Reason for Continuing Indwelling Catheter: Accurate Measurement of Urinary Output in Critically Ill Patients Urinary Catheter Date of Insertion: 09/08/20 Urinary Catheter Time of Insertion: 09:30 Data : 09/08/20 15:53 09/09/20 04:20 Micro: Microbiology 09/08/20 09:30 Urine Culture - Preliminary Urine,Clean Catch 09/07/20 21:34 Blood Culture - Preliminary Blood NEGATIVE TO DATE 09/07/20 18:57 Blood Culture - Preliminary Blood NEGATIVE TO DATE A&P Assessment and plan (1) Acute respiratory failure with hypoxia: -Secondary to healthcare associated pneumonia, likely aspiration pneumonia/pneumonitis, CHF exacerbation, COPD -Recent hospital admission for pneumonia, chest x-ray shows bilateral pleural effusions,, pulmonary edema, pneumonitis, right middle lobe and right lower lobe pneumonia -Patient has had multiple swallow eval's in the past, with evidence of aspiration -BNP 23000 -Troponin 75, 6-hour 78.28, delta 3.28 -CT chest shows: 1. Diffuse airspace infiltrate throughout the right lower lobe, consistent with pneumonia. This has worsened when compared to 07/26/2020. 2. Virtual complete atelectasis of the right middle lobe. This is new when compared to the previous study. 3. Mild prominence of the pulmonary interstitium bilaterally, suggesting interstitial pulmonary edema. 4. Bilateral pleural effusions, right larger than left. This is new when compared to the previous study. 5. Changes of old granulomatous disease are identified. 6. Cardiomegaly is present. No pericardial effusion. -ABG this morning shows pH 7.47, PCO2 42.3, PO2 75.3, bicarb 31 -Echocardiogram shows diffuse hypokinesis, left ventricular ejection fraction 25 to 30% -Chest x-ray shows resolving airspace and interstitial infiltrative changes right lower lung, resolving right pleural effusion Plan: -Sputum cultures, blood cultures, urine bacterial antigens -Telemetry monitoring -Continue 2 L nasal cannula, BiPAP during the day, BiPAP schedule during the night -Broad-spectrum antibiotic therapy vancomycin, Zosyn and azithromycin -Solu-Medrol 40 every 8 hours, DuoNebs every 4 hours -Lasix 40 mg IV every 8 hours, metolazone 10 mg daily -Monitor creatinine, monitor urine output closely -Has had a bronchoscopy for recurrent pneumonias in right middle lobe, which has been unremarkable, has chronic right middle lobe atelectasis secondary to adenopathy, negative for postobstructive in the past -Discussed the case with Dr. Berger, no need for thoracocentesis at this point, continue to clinically monitor -Patient is DNR/DNI -Heparin for DVT prophylaxis on hold given anemia Plan for today: Monitor hemoglobin, consult cardiology, continue diuresis, monitor clinical status, hopefully moved out of ICU the next 24 hours, to the general medical floors, hopefully discharge Saturday or Saturday Status: Acute (2) CAD (coronary artery disease): #1 Left main is normal #2 LAD has luminal irregularities a patent previously placed stent #3 LCx is small nondominant vessel without significant stenosis #4 RCA has anterior takeoff difficult to engage AL-1 catheter was used it is a diffusely diseased vessel with multiple stents proximal RCA has 90% stenosis mid to distal RCA into PDA and PLB bifurcation has 60-70% tandem stenosis. It is the culprit vessel Successful PCI to proximal RCA and balloon angioplasty to mid to distal RCA Plan: -I assume patient remains on dual antiplatelet therapy due to severe CAD, will have cardiology weigh in -Continue aspirin, Plavix resumed today, statin, Coreg -Serial troponins, serial EKGs -Have consulted cardiology Status: Acute (3) Rectal abscess: -Status post incision and drainage by ER -Surgery has been consulted by ER physician -On broad-spectrum antibiotic therapy as above -Surgery on consult Status: Acute (4) Acute hyperkalemia: -Potassium 4.1 -History of acute on chronic hyperkalemia -Received insulin, D50, calcium gluconate -On Lasix therapy -Kayexalate on hold -telemetry monitoring Status: Acute (5) Acute on chronic renal failure: -History of CKD stage III -On last admission, month ago, had acute renal failure, creatinine as high as 6, requiring dialysis, dialysis catheter removed -Currently creatinine is 2.6 -I am suspecting that it is likely secondary to cardiorenal syndrome some hypovolemia -Carefully diuresis -Monitor creatinine, monitor urine output Status: Acute (6) COVID-19: -No significant COVID-19 symptoms Status: Acute (7) Chronic systolic CHF (congestive heart failure): -echo 07/2020 LV systolic function is severely reduced with EF of 30 to 35%. Regional wall motion abnormalities cannot be assessed because of limited visualization. Diastolic function is abnormal. Valvular structures are not completely assessed because of limited echocardiogram. Compared to prior study from 12/26/2019, no significant changes are noted. -Repeat echocardiogram shows diffuse hypokinesia, EF of 25% Status: Acute (8) S/P bilateral BKA (below knee amputation): -Secondary to severe peripheral vascular disease, vasculopathy, diabetes Status: Chronic (9) Type 2 diabetes mellitus: -Continue sliding scale, Lantus 24 units daily Status: Chronic (10) Peripheral vascular disease: Aspirin, statin, Plavix Status: Chronic (11) Hypertension: Status: Chronic (12) CKD stage 3 secondary to diabetes: Status: Chronic (13) COPD (chronic obstructive pulmonary disease): Status: Chronic (14) Acute on chronic anemia: -Hemoglobin 8.5 continue Plavix -Likely multifactorial from pneumonia, CKD, slow GI bleed -Monitor hemoglobin closely, monitor hemodynamics -Iron low at 11, ferritin 169, folate within normal limits, B12 within normal limits -Protonix 40 twice daily, carafate -Plavix resumed today -Continue heparin -We will transfuse if hemoglobin drops below 7, Status: Acute (15) Acidosis: Status: Acute (16) Thrombocytosis: -Likely secondary to infection, chronic hypoxia -Will do peripheral smear Status: Acute Attestations Medical Necessity Statement*: Patient requires hospitalization, for acute respiratory failure multifactorial, COPD, CHF, pneumonia, pleural effusion, severe CAD, anemia Time Spent in Patient Care: Greater than 35 minutes (>than 50% of time spent in counselling and/or direct pt care on unit) . Critical Care Time: Critical Care Time (min): 40 Coding Level of Care Code Acute Application Lead for [facility] Fwd Diagnoses Acute respiratory failure with hypoxia J96.01 CAD (coronary artery disease) I25.10 Rectal abscess K61.1 Acute hyperkalemia E87.5 Acute on chronic renal failure N17.9; N18.9 COVID-19 U07.1 Chronic systolic CHF (congestive heart failure) I50.22 S/P bilateral BKA (below knee amputation) Z89.512; Z89.511 Type 2 diabetes mellitus E11.9 Peripheral vascular disease I73.9 Hypertension I10 CKD stage 3 secondary to diabetes E11.22; N18.3 COPD (chronic obstructive pulmonary disease) J44.9 Acute on chronic anemia D64.9 Acidosis E87.2 Thrombocytosis D47.3
[2020-09-09] MEDS: clopidogrel 75 mg Tablet PO (11:16)
[2020-09-09 12:24] LABS: Glucose Point of Care 254 mg/dL (70-110)
--- NOTE | 2020-09-09 13:41 | PM.CONSULT ---
Providers/Reason For Consult Consulting Physican/Specialty*: Dr. Xiong, cardiology Reason for Consult*: Decompensated congestive heart failure Attending Physician: Jasbir West MD Primary Care Provider: Hiram Black DO History of Present Illness History of Present Illness Tashi Cole is a 64 year old male with past medical history significant for severe peripheral vascular disease status post bilateral BKA, COPD, smoker, coronary artery disease, chronic combined congestive heart failure, hypertension, hyperlipidemia,diabetes mellitus and chronic kidney disease, chronically on oxygen at night, as needed, GRACIA, on CPAP,CAD status post balloon angioplasty and LEONIDAS to RCA in February 2017, type 2 diabetes mellitus. He resides at [facility] and was admitted on 07 September. It seems like he has had recurrent hospitalizations the most recent one being an July for BLAINE requiring dialysis catheter DKA pneumonia congestive heart failure and COPD. He also has history of COPD COVID-19 pneumonia on 17 July. He presented this time with rectal abscess and shortness of breath. He is a poor historian. He was unable to tell me much about his history except that he presented to the hospital because he was short of breath and now he feels much better. He denies having any chest pain or lower extremity swelling. Review of Systems General: Reports: 10 or more systems reviewed and unremarkable except in HPI and below Const: Denies: fever(s), chills, fatigue or malaise Eyes: Denies: change in vision or blurry vision ENMT: Denies: nasal congestion Card: Denies: chest pain or palpitations Resp: Reports: dyspnea; Denies: productive cough, non-productive cough or wheezing GI: Denies: abdominal pain, nausea, vomiting, hematemesis, diarrhea, constipation, hematochezia or melena : Denies: flank pain, difficulty urinating, dysuria or urinary frequency Musc: Denies: neck pain or back pain Skin/Breast: Denies: rash Neuro: Denies: headache(s), dizziness or vertigo Psych: Denies: anxiety or depression Endo: Denies: polyuria or polydipsia Ashvin/Lymph: Denies: petechiae or purpura All/Imm: Denies: facial swelling or acute wheezing Meds/Allergies Home Medications and Allergies Home Medications Medication Instructions Recorded Confirmed Last Taken Type acetaminophen 650 mg PO Q4H PRN #0 10/19/19 09/07/2020 18:00 History aspirin 81 mg PO DAILY@10/19/19 09/07/20 09/07/20 History bisacodyl 10 mg VT DAILY PRN 10/19/19 09/07/20 12/23/19 08:00 History 10 mg budesonide 2 ml INHALATION BID 10/19/19 09/07/20 09/07/20 History bupropion HCl [Wellbutrin SR] 150 mg PO Q12H 10/19/19 09/07/20 09/07/20 History carvedilol 3.125 mg PO BID@10/19/19 09/07/20 09/07/20 History clopidogrel [Plavix] 75 mg PO DAILY@10/19/19 09/07/20 09/07/20 History insulin lispro [Humalog KwikPen See Rx Instructions .ROUTE .COMPLEX 10/19/19 09/07/20 07/26/20 History Insulin] loratadine 10 mg PO DAILY@10/19/19 09/07/20 09/07/20 History magnesium L-lactate [Magtab] 84 mg PO DAILY@10/19/19 09/07/20 09/07/20 History nitroglycerin 0.4 mg SUBLINGUAL Q5M PRN 10/19/19 09/07/20 Unknown History rosuvastatin [Crestor] 20 mg PO DAILY@10/19/19 09/07/20 09/06/20 History tamsulosin 0.4 mg PO DAILY@10/19/19 09/07/20 09/07/20 History Hair,Skin and Nails 1 tab PO DAILY@12/15/19 09/07/20 09/07/20 History Mucinex DM 1 tab PO BID@12/15/19 09/07/20 09/07/20 History magnesium hydroxide [Milk of 30 ml PO DAILY PRN 12/15/19 09/07/20 Unknown History Magnesia] ondansetron HCl [Zofran] 4 mg PO Q4H PRN 12/15/19 09/07/20 07/26/20 History albuterol sulfate 2.5 mg INHALATION Q4H PRN 03/28/20 09/07/20 09/07/20 History citalopram 20 mg PO DAILY@08 07/26/20 09/07/20 09/07/20 History pantoprazole 40 mg PO BID@18 07/26/20 09/07/20 09/07/20 History polyethylene glycol 3350 [Miralax] 17 g PO DAILY@08 07/26/20 09/07/20 09/07/20 History nicotine (polacrilex) 2 mg BUCCAL Q1H PRN #72 each 07/28/20 09/07/20 Unknown Rx glucagon HCl [Glucagon (HCl) 1 mg SUBCUT Q20M PRN 09/07/20 09/07/20 Unknown History Emergency Kit] insulin glargine [Lantus Solostar 24 unit SUBCUT DAILY@09/07/20 09/07/20 09/07/20 History U-100 Insulin] insulin lispro [Humalog Willem 8 unit SUBCUT TID@,,09/07/20 09/07/20 09/07/20 History KwikPen U-100] ipratropium-albuterol 3 ml INHALATION BID@ PRN 09/07/20 09/07/20 Unknown History nut.tx,spec.frm,l-fr,iron-fos 1 ea PO BID@09/07/20 09/07/20 09/07/20 History [TwoCal HN] Allergies Allergy/AdvReac Type Severity Reaction Status Date / Time tramadol Allergy ADR-Vomitin Verified 08/29/20 09:56 g Current Medications Current Medications Generic Name Dose Route Start Last Admin Trade Name Freq PRN Reason Stop Dose Admin Albuterol/Ipratropium 3 ml 09/07/20 20:00 09/09/20 12:36 Ipratropium-Albuterol 3 Ml Neb INHALATION 3 ml Q4H.RESPIRATORY OKSANA Administration Aspirin 81 mg 09/08/20 08:00 09/09/20 09:07 Aspirin 81 Mg Ec Tablet PO 81 mg DAILY@08 OKSANA Administration Atorvastatin Calcium 80 mg 09/07/20 20:00 09/08/20 21:45 Atorvastatin 40 Mg Tablet PO 80 mg DAILY@20 OKSANA Administration Budesonide 0.5 mg 09/07/20 20:00 09/09/20 08:20 Budesonide 0.5 Mg/2 Ml Neb INHALATION 0.5 mg BID.RESPIRATORY OKSANA Administration Bupropion HCl 150 mg 09/08/20 08:00 09/09/20 09:07 Bupropion Sr (12 Hr) 150 Mg Tablet PO 150 mg Q12H OKSANA Administration Carvedilol 3.125 mg 09/07/20 20:00 09/09/20 09:09 Carvedilol 3.125 Mg Tablet PO 3.125 mg BID@08,20 OKSANA Administration Citalopram Hydrobromide 20 mg 09/08/20 08:00 09/09/20 09:08 Citalopram 20 Mg Tablet PO 20 mg DAILY@08 OKSANA Administration Clopidogrel Bisulfate 75 mg 09/09/20 11:00 09/09/20 11:16 Clopidogrel 75 Mg Tablet PO 75 mg DAILY OKSANA Administration Ferrous Sulfate 325 mg 09/08/20 08:00 09/09/20 09:08 Ferrous Sulfate Ec 325 Mg Tablet PO 325 mg BIDWM OKSANA Administration Furosemide 40 mg 09/08/20 07:49 09/09/20 06:34 Furosemide 10 Mg/Ml Sdv 4ml IVP 40 mg Q8H OKSANA Administration Heparin Sodium (Beef Lung) 5,000 unit 09/07/20 20:00 09/07/20 21:02 Heparin 5,000 Unit/Ml Inj 1 Ml SUBCUT 5,000 unit Q12H OKSANA Administration Vancomycin HCl 750 mg/ Sodium 250 mls @ 250 mls/hr 09/08/20 16:00 09/08/20 19:14 Chloride IV Infused Q24H [facility] Infusion Protocol Piperacillin Sod/Tazobactam 50 mls @ 12.5 mls/hr 09/07/20 20:00 09/09/20 06:35 Sod 3.375 gm/ Sodium Chloride IV 12.5 mls/hr Q8H OKSANA Administration Protocol Azithromycin 500 mg/ Sodium 250 mls @ 250 mls/hr 09/07/20 20:00 09/08/20 22:45 Chloride IV Infused Q24H [facility] Infusion Protocol Insulin Aspart 0 unit 09/08/20 12:00 09/09/20 12:55 Insulin Aspart 100 Unit/1 Ml SUBCUT 10 unit WM&BEDTIME OKSANA Administration Protocol Insulin Glargine 24 unit 09/08/20 08:00 09/09/20 09:10 Insulin Glargine 100 Units/1 Ml SUBCUT 24 unit DAILY@0800 OKSANA Administration Loratadine 10 mg 09/08/20 08:00 09/09/20 09:08 Loratadine 10 Mg Tablet PO 10 mg DAILY@08 OKSANA Administration Magnesium Lactate 84 mg 09/08/20 08:00 09/09/20 09:07 Magnesium Lactate 84 Mg Tablet PO 84 mg DAILY@08 [facility]SANA Administration Methylprednisolone Sodium Succinate 40 mg 09/07/20 20:00 09/09/20 12:53 Methylprednisolone Sod Succ 40 Mg/Ml Inj IVP 40 mg Q8H [facility]SANA Administration Metolazone 10 mg 09/08/20 09:00 09/09/20 09:18 Metolazone 5 Mg Tablet PO 10 mg DAILY [facility]SANA Administration Pantoprazole Sodium 40 mg 09/07/20 19:00 09/09/20 05:[address] 40 Mg Tablet PO 40 mg BID@, OKSANA Administration Polyethylene Glycol 17 gm 09/08/20 08:00 09/09/20 09:12 Polyethylene Glycol 3350 Pkt 17 Gm PO 17 gm DAILY@08 OKSANA Administration Sodium Polystyrene Sulfonate 15 gm 09/07/20 20:00 09/09/20 09:18 Sodium Polystyrene Sulfonate 15 Gm/60 Ml Btl PO Not Given Q6H [facility] Sucralfate 1 gm 09/07/20 19:00 09/09/20 05:55 Sucralfate 1 Gm Tablet PO 1 gm BIDAC OKSANA Administration Tamsulosin HCl 0.4 mg 09/08/20 08:00 09/09/20 09:09 Tamsulosin 0.4 Mg Capsule PO 0.4 mg DAILY@08 OKSANA Administration PFSH Acute PFSH: Medical History (Updated 09/09/20 @ 16:13 by Verónica Xiong MD) Abnormal cystoscopy Anxiety BPH (benign prostatic hyperplasia) Chronic systolic CHF (congestive heart failure) CKD stage 3 secondary to diabetes COPD (chronic obstructive pulmonary disease) Coronary artery disease Depression Dysphagia History of urinary retention Hypertension Peripheral vascular disease Type 2 diabetes mellitus Urgency incontinence Surgical History Coronary angioplasty status History of carpal tunnel surgery History of hip surgery S/P bilateral BKA (below knee amputation) S/P right coronary artery (RCA) stent placement Family History Other CAD (coronary artery disease) Diabetes Social History Smoking and tobacco status: current every day smoker cigarettes Packs smoked per day: 0.5 Years cigarettes smoked: 59 Second hand smoke exposure: Yes Alcohol intake: never Lives independently: No Housing: Alf Marital status: Current occupational status: retired and disabled History of recent travel: No Current gender identity: Male Vitals/I&O/Wt Last Vital Signs Temp 98 F 09/08/20 11:37 Pulse 80 09/09/20 12:45 Resp 14 09/09/20 12:42 BP 111/56 09/09/20 12:00 Pulse Ox 94 09/09/20 12:42 09/08/20 09/09/20 09/09/20 22:59 06:59 14:59 Intake Total 1520 / 1570 50 / 1620 Output Total 750 / 1550 1300 / 2850 720 / 720 Balance 770 / 20 -1250 / -1230 -720 / -720 Weight last 48 hrs Weight 138 lb 6.4 oz Physical Exam Const: COMMON NORMALS: no acute distress, average body habitus, alert and well nourished GENERAL APPEARANCE: cooperative, comfortable, well kempt and well developed ORIENTATION/CONSCIOUSNESS: Yes oriented to person (Self) HENMT: COMMON NORMALS: normocephalic, atraumatic, hearing grossly normal bilaterally, external ears normal, Normal external nose present and oropharynx normal HEAD & SCALP: normocephalic and atraumatic FACE & SINUS: face symmetric NOSE: Normal external nose present EXTERNAL EAR: Yes external ears normal MOUTH: Normal oral and palatal mucosa present Eye: COMMON NORMALS: Equal, round and reactive pupils present, EOMs intact bilaterally and conjunctivae normal ALIGNMENT: Yes alignment normal CONJUNCTIVA: Yes conjunctivae normal SCLERA: sclerae normal PUPIL: Yes Equal, round and reactive pupils present Neck/C-Spine: COMMON NORMALS: no lymphadenopathy, supple, no JVD and Thyroid normal; negative for No carotid bruits GENERAL: Yes trachea midline THYROID: Thyroid normal Lymph: LYMPHATIC: No no lymphadenopathy noted Chest: COMMONS NORMALS: normal inspection of the chest CHEST: Yes Symmetrical chest wall rise and No tenderness Resp: COMMON NORMALS: normal respiratory effort, No use of accessory muscles, clear to auscultation bilaterally and percussion normal EFFORT & INSPECTION: Yes able to speak in complete sentences, No tachypneic and No audible wheezes AUSCULTATION: clear to auscultation bilaterally, no crackles, no rales, no rhonchi and no wheezes PERCUSSION: percussion normal Cardio: COMMON NORMALS: no JVD, regular rate, regular rhythm, S1 normal heart sound present, S2 normal heart sound present and Peripheral pulses 2+ throughout; negative for No gallops present (Cardio) and negative for No clicks present (Cardio) JUGULAR VENOUS DISTENTION: no JVD PALPATION: normal PMI, no heave, no palpable S3, no palpable S4 and no thrill RATE: regular rate RHYTHM: regular rhythm HEART SOUNDS: S1 normal heart sound present, S2 normal heart sound present, no click, no gallops and no murmurs BRUITS: no abdominal aortic bruits and no carotid bruits PERIPHERAL PULSES: Peripheral pulses 2+ throughout GI: COMMON NORMALS: Normal to inspection, nondistended, normoactive bowel sounds present, Soft to palpation, non-tender and No hepatosplenomegaly present PALPATION: Yes Soft to palpation and Yes No hepatosplenomegaly present PERCUSSION: tympanic to percussion RECTAL EXAM: Yes deferred Back/Pelvis: LUMBAR SPINE/LOWER BACK: Yes normal to inspection Extremity: NARRATIVE EXTREMITY EXAM: Bilateral above-knee amputation Neuro: COMMON NORMALS: no focal motor deficits SENSORIUM/ORIENTATION: Yes alert and Yes oriented to person (Self) CRANIAL NERVES: Yes CN normal except as noted Psych: COMMON NORMALS: Normal thought process present APPEARANCE: Yes well kempt MOOD & AFFECT: Yes euthymic mood THOUGHT PROCESS: Normal thought process present THOUGHT CONTENT: Yes Normal thought content present ATTENTION/CONCENTRATION: Yes attention grossly intact MEMORY/COGNITION: Yes memory grossly intact INSIGHT: Good insight present (Psych) JUDGEMENT: Good judgement present (Psych) Urinary Catheter Management^: Mejia: Cath Placed During This Visit: yes Reason for Continuing Indwelling Catheter: Accurate Measurement of Urinary Output in Critically Ill Patients Urinary Catheter Date of Insertion: 09/08/20 Urinary Catheter Time of Insertion: 09:30 Data Labs: Other Labs: NT proBNP 16,087, AST 10, ALT 13 and alkaline phosphatase 126, magnesium 2.2, phosphorus 4.9. Lactate 1.4. Calcium 9.1. Serum iron 11, TIBC 157, percent saturation 7, ferritin 169. Baseline troponin T 75, troponin T at 120 minutes of 78 and at 6 hours of 78. CRP 51. Procalcitonin 0.11. TSH 2.06. Urinalysis with 1+ protein negative ketones and 3+ blood 2+ leukocyte esterase and 1+ bacteria negative nitrite Micro: Micro: Microbiology 09/07/20 22:00 Wound Culture - Pr eliminary Groin Gram Negative R ods Gram Negative R ods#2 09/08/20 09:30 Urine Culture - Pr eliminary Urine,Clean Catch 09/07/20 21:34 Blood Culture - Pr eliminary Blood NEGATIVE TO FÉLIX E 09/07/20 18:57 Blood Culture - Pr eliminary Blood NEGATIVE TO FÉLIX E Imaging^: CXR: Radiologist's impression: IMPRESSION: Resolving airspace and interstitial infiltrative changes right lower lung as well as resolving right pleural effusion. CT Chest: Radiologist's impression: IMPRESSION: 1. Diffuse airspace infiltrate throughout the right lower lobe, consistent with pneumonia. This has worsened when compared to 07/26/2020. 2. Virtual complete atelectasis of the right middle lobe. This is new when compared to the previous study. 3. Mild prominence of the pulmonary interstitium bilaterally, suggesting interstitial pulmonary edema. 4. Bilateral pleural effusions, right larger than left. This is new when compared to the previous study. 5. Changes of old granulomatous disease are identified. 6. Cardiomegaly is present. No pericardial effusion. Other Data: Attestation for Other Data: I personally reviewed and interpreted the following: Other data: SINUS RHYTHM POSSIBLE ANTERIOR MYOCARDIAL INFARCTION [30 ms Q WAVE IN V3/V4, OR R < 0.2 mV IN V4], OF INDETERMINATE AGE INFERIOR MYOCARDIAL INFARCTION [40+ ms Q WAVE AND/OR ST/T ABNORMALITY IN II/aVF], OF INDETERMINATE AGE INTERPRETATION BASED ON A DEFAULT AGE OF 40 YEARS Compared to ECG 09/07/2020 14:22:41 Sinus tachycardia no longer present Myocardial infarct finding still present. # TTE (09/08/20) CONCLUSIONS Diffuse hypokinesia left ventricular ejection fraction of 25 to 30%. Mildly dilated LV cavity. Mildly increased left atrial size. Mild mitral valve regurgitation. Thickened mitral valve. Moderate mitral annular calcification. Trace aortic valve regurgitation. Trace aortic valve regurgitation. Thickened tricuspid valve. Compared to the study from 07/27/2020, there is slight worsening of the LV systolic function. # TTE (11/4/20) CONCLUSIONS This is a limited quality echocardiogram. LV systolic function is severely reduced with EF of 30 to 35%. Regional wall motion abnormalities cannot be assessed because of limited visualization. Diastolic function is abnormal. Valvular structures are not completely assessed because of limited echocardiogram. Compared to prior study from 12/26/2019, no significant changes are noted. #Coronary angiogram 02 March 2017 Conclusions Procedure Summary #1 Left main is normal #2 LAD has luminal irregularities a patent previously placed stent #3 LCx is small nondominant vessel without significant stenosis #4 RCA has anterior takeoff difficult to engage AL-1 catheter was used it is a diffusely diseased vessel with multiple stents proximal RCA has 90% stenosis mid to distal RCA into PDA and PLB bifurcation has 60-70% tandem stenosis. It is the culprit vessel Successful PCI to proximal RCA and balloon angioplasty to mid to distal RCA Successful PCI to proximal RCA. Lesion was prepared with 2.5/15 mm MDT EUPHORA balloon, followed by deployment of RESOLUTE INTEGRITY 2.75 x 18 mm stent posted at high MOHSEN of 20 mm. Mid to distal RCA into PDA was treated with plain old-fashioned balloon angioplasty MDT EUPHORA 2.0X15mm balloon. Excellent angiographic result with KLEVER-3 flow was achieved. 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 -On Coreg 3.125 twice daily. May continue metolazone for now however eventually would need to transition and try low-dose Aldactone. -May try to add low-dose Isordil and hydralazine if blood pressure allows. DELVIS/ARB/Arni may not be an option with his CKD. -Urine output 2.7 L with negative balance of 910 mL, weight is decreased from 150 to 138 pounds today (?). I do not think that is accurate. -ABG this morning with pH of 7.47, PCO2 42 PO2 75 on FiO2 of 0.21. -BUN 51 and creatinine 2.6 with CO2 of 26. Patient is DNR and DNI and explicitly states that he does not want ICD. I think in his situation medical management would be the way to go. However I will discuss with him if he wants to have further stress testing or angiogram done at some point in future once he is euvolemic. Patient at this time was unable to tell me where he is could not tell me the date or month or the year or who the president was. Status: Acute Qualifiers: Heart failure chronicity: acute on chronic Heart failure type: combined systolic and diastolic Qualified Code(s): I50.43 - Acute on chronic combined systolic (congestive) and diastolic (congestive) heart failure (2) Coronary artery disease: Status: Chronic Qualifiers: Coronary Disease-Associated Artery/Lesion type: [place] artery [place] vs. transplanted heart: [place] heart Associated angina: without angina Qualified Code(s): I25.10 - Atherosclerotic heart disease of [place] coronary artery without angina pectoris (3) Type 2 diabetes mellitus: Poorly controlled diabetes mellitus Status: Chronic Qualifiers: Diabetes mellitus [facility] insulin use: with termite treater use Diabetes mellitus complication status: with kidney complications Diabetes mellitus complication detail: with chronic kidney disease Chronic kidney disease stage: stage 4 (severe) Qualified Code(s): E11.22 - Type 2 diabetes mellitus with diabetic chronic kidney disease; N18.4 - Chronic kidney disease, stage 4 (severe); 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 Chinchilla Status: Acute (6) CKD (chronic kidney disease) stage 4, GFR 15-29 ml/min: Status: Acute Additional A&P Information Elevated troponin in setting of decompensated congestive heart failure and chronic kidney disease Normocytic anemia (iron deficiency and anemia of chronic disease) Thrombocytosis Consult Attestations Medical Necessity Statement: Needs hospital stay for management of decompensated congestive heart failure Time Spent in Patient Care: Greater than 35 minutes (>than 50% of time spent in counselling and/or direct pt care on unit). Coding Level of Care Code New Pt Acute Key Account Coordinator for Pepe Mcfarland Patient Type New History Comprehensive Exam Comprehensive Medical Decision Making High Complexity Diagnoses Congestive heart failure I50.43 Heart failure chronicity: acute on chronic Heart failure type: combined systolic and diastolic Coronary artery disease I25.10 Coronary Disease-Associated Artery/Lesion type: [place] artery [place] vs. 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
--- NOTE | 2020-09-09 14:57 | PC.RESP ---
Smoking Cessation and Pulmonary Rehab packet to patient.
[2020-09-09 16:48] LABS: Vancomycin Trough 15.5 ug/mL (10-15)
[2020-09-09 17:25] LABS: Glucose Point of Care 188 mg/dL (70-110)
[2020-09-09] MEDS: vancomycin 750 MG in sodium chloride 0.9% 250 ML 250 MG IV (17:35)
[2020-09-09] MEDS: azithromycin 500 MG in sodium chloride 0.9% 250 ML 250 MG IV (20:49)
[2020-09-09] MEDS: atorvastatin 40 mg Tablet 80 MG PO (20:49)
[2020-09-09] MEDS: sodium polystyrene sulfonate 15 gm/60 mL Btl PO (21:05)
[2020-09-09 21:24] LABS: Glucose Point of Care 204 mg/dL (70-110)
[2020-09-10] VITALS (25 sets, daily range): BP systolic 97–134; BP diastolic 57–76; PULSE 86–120; RESP 11–30; TEMP 36.9–37.1; O2SAT 90–99
--- NOTE | 2020-09-10 03:57 | PC.NURSE ---
ASSUMING CARE Assumed care from Flex Javed RN. Patient resting in bed on room air. Zosyn running. Patient denies any needs at this time and is alert and oriented x 4.
[2020-09-10] MEDS: ipratropium-albuterol 3 mL Neb INHALATION ×6 (04:11→23:43)
[2020-09-10 04:54] LABS: Basophils # 0.1 10^3/uL (0.0-0.1); Basophils % 0.2 %; Hematocrit 30.8 % (42.0-52.0); Hemoglobin 9.4 g/dL (11.7-16.6); Lymphocytes # 1.8 10^3/uL (0.8-4.8); Lymphocytes % 7.4 %; Mean Corpuscular HGB Conc 30.5 g/dL (30.0-36.0); Mean Corpuscular Hemoglobin 27.5 pg (28.0-34.0); Mean Corpuscular Volume 90.1 fL (80-94); Mean Platelet Volume 9.1 fL (7.4-10.4); Monocytes # 1.1 10^3/uL (0.2-0.9); Monocytes % 4.3 %; Neutrophils # 21.26 10^3/uL (1.8-7.7); Neutrophils % 85.6 %; Nucleated Red Blood Cells % 0 %; Platelet Count 730 10^3/cmm (130-400); Red Blood Count 3.42 10^6/uL (4.1-5.3); Red Cell Distribution Width 15.2 % (12.1-15.1); White Blood Count 24.8 10^3/uL (4.0-10.0)
[2020-09-10 05:07] LABS: Lactate (Lactic Acid level) 1.4 mmol/L (0.5-2.2)
[2020-09-10 05:30] LABS: NT Pro B Type Natriuretic Pept 12872 pg/mL (0-125); Procalcitonin 0.08 ng/mL (0-0.5)
[2020-09-10] MEDS: piperacillin-tazobactam 3.375 GM in sodium chloride 0.9% (plus) 50 ML IV ×2 (06:05→17:21)
[2020-09-10] MEDS: FUROsemide 10 mg/mL SDV 4mL 40 MG IVP ×3 (06:05→20:16)
[2020-09-10] MEDS: sucralfate 1 gm Tablet PO ×2 (06:06→17:21)
[2020-09-10] MEDS: pantoprazole DR 40 mg Tablet PO ×2 (06:06→17:21)
--- NOTE | 2020-09-10 06:17 | PC.NURSE ---
WOUND CARE Patients wound unpacked, cleaned, and redressed. Packing has sanguineous drainage, but site is beefy red, clean and patient complains of little pain. Site cleaned, repacked, guaze placed over packing, and optifoam to keep covered.
[2020-09-10 06:20] LABS: Alanine Aminotransferase 13 U/L (0-41); Albumin Level 2.8 g/dL (3.5-5.2); Alkaline Phosphatase 119 IU/L (40-130); Anion Gap 18.5 (5-19); Aspartate Amino Transferase 12 U/L (0-40); Blood Urea Nitrogen 54 mg/dL (8-23); C Reactive Protein 28.9 mg/L (0.0-4.9); Calcium 9.2 mg/dL (8.5-10.5); Carbon Dioxide 30 mmol/L (22-29); Chloride 99 mmol/L (98-107); Globulin 3.7 g/dL (1.3-4.6); Glomerular Filtration Rate 22.9 mL/min (90-130); Glucose 180 mg/dL (65-115); Osmolality Calculated 317 mOsm/kg (285-295); Phosphorus 4.8 mg/dL (2.5-4.5); Potassium 3.5 mmol/L (3.5-5.1); Sodium 144 mmol/L (136-145); Total Bilirubin 0.2 mg/dL (0.15-1.2); Total Protein 6.5 g/dL (6.6-8.7)
--- NOTE | 2020-09-10 06:22 | PC.NURSE ---
SHIFT SUMMARY Patient rested well in bed this shift. 1400 mL of urine output. Dressing changed, see previous note. Patient alert and oriented x 4. No complaints of pain.
[2020-09-10 06:45] LABS: INR 1.18 (0.8-1.2)
[2020-09-10] MEDS: ferrous sulfate EC 325 mg Tablet PO ×2 (07:24→17:26)
[2020-09-10] MEDS: aspirin 81 mg EC Tablet PO (07:25)
[2020-09-10] MEDS: tamsulosin 0.4 mg Capsule PO (07:25)
[2020-09-10] MEDS: loratadine 10 mg Tablet PO (07:25)
[2020-09-10] MEDS: magnesium lactate 84 mg Tablet PO (07:25)
[2020-09-10] MEDS: citalopram 20 mg Tablet PO (07:25)
[2020-09-10 07:26] LABS: Glucose Point of Care 271 mg/dL (70-110)
[2020-09-10] MEDS: budesonide 0.5 mg/2 mL Neb INHALATION ×2 (07:35→20:13)
--- NOTE | 2020-09-10 07:35 | PC.NURSE ---
Confused to date/time/location Patient states he is in [facility] and the year is '92. Pt reoriented to date, time, and location.
--- NOTE | 2020-09-10 07:57 | XRR_ITS ---
PROCEDURE INFORMATION: Exam: XR Chest, 1 View Exam date and time: 09/10/2020 7:59 AM Age: 64 years old Clinical indication: Pain; Other: AMS TECHNIQUE: Imaging protocol: XR of the chest Views: 1 view. COMPARISON: CR XR chest 1V portable [id number] 09/09/2020 5:42 AM FINDINGS: Lungs: Hyperinflation, interstitial prominence, and chronic granulomatous disease. Asymmetric right basilar airspace/pleural disease. Heart/Mediastinum: Cardiac silhouette upper limits of normal in size. Bones/joints: Osteopenia and degenerative change prior XR/XR chest 1V portable [id number] IMPRESSION: 1. Hyperinflation, interstitial prominence, and chronic granulomatous disease. 2. Asymmetric right basilar airspace/pleural disease.
--- NOTE | 2020-09-10 07:57 | USR_ITS ---
Arterial ultrasound of the extracerebral carotid and vertebral arteries Clinical indication: Atherosclerotic disease; Additional info: Ms Technique: Real-time ultrasound with romano scale, duplex Doppler, and color flow imaging was performed to evaluate the extracerebral carotid and vertebral arteries. No prior vascular imaging studies are available for correlation at the time of dictation. Findings: Moderate mixed echogenic plaque formation is identified in the carotid arteries along with mild intimal thickening . There is normal antegrade flow within the vertebral arteries bilaterally. The peak systolic velocity measurements within the right and left internal carotid arteries are 52 and 39 cm per second respectively. The right systolic velocity ratio is 1.27, while the left systolic velocity ratio is 0.58. These values are well within normal limits. When correlating with NASCET index criteria, no hemodynamically significant stenosis is present. US/CV carotid duplex BI* [id number] Impression: 1. No hemodynamically significant ICA stensosis. 2. Normal antegradew flow within the vertebral arteries.
--- NOTE | 2020-09-10 07:57 | CTR_ITS ---
PROCEDURE INFORMATION: Exam: CT Head Without Contrast Exam date and time: 09/10/2020 8:05 AM Age: 64 years old Clinical indication: Altered mental status/memory loss; Additional info: AMS TECHNIQUE: Imaging protocol: Computed tomography of the head without contrast. Radiation optimization: All CT scans at this facility use at least one of these dose optimization techniques: automated exposure control; mA and/or kV adjustment per patient size (includes targeted exams where dose is matched to clinical indication); or iterative reconstruction. COMPARISON: CT head wo con* [id number] 12/15/2019 7:06 PM RADIATION DOSE METRICS: Total DLP (mGy-cm): 782.86 FINDINGS: Brain: Symmetric prominence of the cortical and cerebellar sulci. Chronic 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 Cerebral ventricles: Ventriculomegaly. Bones/joints: No acute calvarial pathology. Paranasal sinuses: Ethmoid sinus inflammatory change, along with trace right sphenoid sinus mucoperiosteal disease. Mastoid air cells: No mastoid effusion. Soft tissues: Unremarkable soft tissues. When correlating with the previous study, no significant interval changes are present. CT/CT head wo con* [id number] IMPRESSION: Stable appearance of the brain, not significantly changed from 12/15/19. Radiation Dose CTDIVOL = (mGy): DLP = 782.86 (mGy-cm)
[2020-09-10] MEDS: clopidogrel 75 mg Tablet PO (08:11)
[2020-09-10] MEDS: carvedilol 3.125 mg Tablet PO ×2 (08:11→21:47)
[2020-09-10] MEDS: insulin glargine 100 units/1 mL 24 UNIT SUBCUT (08:11)
[2020-09-10] MEDS: potassium chloride ER 20 mEq Tablet 40 MEQ PO (08:11)
[2020-09-10] MEDS: buPROPion SR (12 HR) 150 mg Tablet PO ×2 (08:11→21:47)
--- NOTE | 2020-09-10 09:28 | PC.NURSE ---
Attempted to call report, nurse in room.
--- NOTE | 2020-09-10 09:49 | PC.NURSE ---
Report called to Annetta KUMAR. Patient and belongings transferred to [facility] via bed by this nurse.
[2020-09-10 09:52] LABS: Ammonia 35 umol/L (16-60)
--- NOTE | 2020-09-10 10:00 | PC.SOCIAL ---
IMM Page 2 of IMM explained to patient. Initialed, dated, and timed and placed in chart. Copy provided to patient.
--- NOTE | 2020-09-10 10:14 | PC.NURSE ---
Family, Brittney, called and notified of transfer to [facility].
--- NOTE | 2020-09-10 10:50 | P.PN_ITS ---
Subjective Subjective: Interval history: Patient transferred to the floor from ICU today, denies any significant pain, dressings was changed earlier today. Vitals/I&O/Wt Last Vital Signs Temp 98.4 F 09/09/20 20:00 Pulse 120 H 09/10/20 09:00 Resp 30 H 09/10/20 09:00 BP 97/63 09/10/20 09:00 Pulse Ox 98 09/10/20 09:00 09/09/20 09/10/20 09/10/20 22:59 06:59 14:59 Intake Total 630 / 1340 420 / 1340 440 / 440 Output Total 1000 / 3120 1400 / 3120 800 / 800 Balance -370 / -1780 -980 / -1780 -360 / -360 Weight last 48 hrs Weight 138 lb 6.4 oz Physical Exam Narrative: EXAM NARRATIVE: Abdomen: Soft Perineum: Dressings dry and intact Urinary Catheter Management^: Mejia: Cath Placed During This Visit: yes Reason for Continuing Indwelling Catheter: Accurate Measurement of Urinary Output in Critically Ill Patients Urinary Catheter Date of Insertion: 09/08/20 Urinary Catheter Time of Insertion: 09:30 Data : 09/10/20 04:17 09/10/20 04:17 Micro: Microbiology 09/07/20 22:00 Wound Culture - Preliminary Groin Escherichia coli Proteus mirabilis 09/08/20 09:30 Urine Culture - Final Urine,Clean Catch A&P Assessment and plan (1) Perineal abscess: Overall doing okay Continue wet-to-dry dressing changes Continue IV antibiotics Status: Resolved Attestations Medical Necessity Statement*: Perianal abscess status post I&D Coding Level of Care Code Acute Quality Manager for Pepe Mcfarland Diagnoses Perineal abscess L02.215
[2020-09-10 10:53] LABS: Glucose Point of Care 288 mg/dL (70-110)
--- NOTE | 2020-09-10 13:59 | PM.PN ---
Subjective Subjective: Interval history: Patient states he feels better. He was moved out of ICU today. Medications: Reviewed: Yes Medication Review Details: Current Medications Acetaminophen (Acetaminophen 325 Mg Tablet) 650 mg PO Q4H PRN PRN Reason: Pain Albuterol Sulfate (Albuterol 2.5 Mg/0.5 Ml Neb) 2.5 mg INHALATION Q4H.RESPIRATORY PRN PRN Reason: Shortness Of Breath Albuterol/Ipratropium (Ipratropium-Albuterol 3 Ml Neb) 3 ml INHALATION Q4H.RESPIRATORY [facility] Last Admin: 09/10/20 11:27 Dose: 3 ml Documented by: Aspirin (Aspirin 81 Mg Ec Tablet) 81 mg PO DAILY@08 [facility] Last Admin: 09/10/20 07:25 Dose: 81 mg Documented by: Atorvastatin Calcium (Atorvastatin 40 Mg Tablet) 80 mg PO DAILY@20 [facility] Last Admin: 09/09/20 20:49 Dose: 80 mg Documented by: Bisacodyl (Bisacodyl 10 Mg Supp) 10 mg TX DAILY PRN PRN Reason: CONSTIPATED Budesonide (Budesonide 0.5 Mg/2 Ml Neb) 0.5 mg INHALATION BID.RESPIRATORY [facility] Last Admin: 09/10/20 07:35 Dose: 0.5 mg Documented by: Bupropion HCl (Bupropion Sr (12 Hr) 150 Mg Tablet) 150 mg PO Q12H [facility] Last Admin: 09/10/20 08:11 Dose: 150 mg Documented by: Carvedilol (Carvedilol 3.125 Mg Tablet) 3.125 mg PO BID@,20 [facility] Last Admin: 09/10/20 08:11 Dose: 3.125 mg Documented by: Citalopram Hydrobromide (Citalopram 20 Mg Tablet) 20 mg PO DAILY@08 [facility] Last Admin: 09/10/20 07:25 Dose: 20 mg Documented by: Clopidogrel Bisulfate (Clopidogrel 75 Mg Tablet) 75 mg PO DAILY [facility] Last Admin: 09/10/20 08:11 Dose: 75 mg Documented by: Dextrose (Dextrose 50% Syringe 50 Ml) 25 ml IVP ONCE PRN; Protocol PRN Reason: hypoglycemia protocol Dextrose (Dextrose 50% Syringe 50 Ml) 50 ml IVP PRN PRN; Protocol PRN Reason: hypoglycemia protocol Ferrous Sulfate (Ferrous Sulfate Ec 325 Mg Tablet) 325 mg PO BIDWM [facility] Last Admin: 09/10/20 07:24 Dose: 325 mg Documented by: Furosemide (Furosemide 10 Mg/Ml Sdv 4ml) 40 mg IVP Q12H [facility] Last Admin: 09/10/20 08:12 Dose: 40 mg Documented by: Glucagon (Glucagon 1 Mg/Ml Inj 1 Ml) 1 mg IM ONCE PRN; Protocol PRN Reason: Adult Acute Hypoglycemia Prot. Heparin Sodium (Beef Lung) (Heparin 5,000 Unit/Ml Inj 1 Ml) 5,000 unit SUBCUT Q12H [facility] Last Admin: 09/07/20 21:02 Dose: 5,000 unit Documented by: Dextrose (D5w) 500 mls @ 100 mls/hr IV ONCE PRN; Protocol PRN Reason: Adult Acute Hypoglycemia Prot Vancomycin HCl 750 mg/ Sodium (Chloride) 250 mls @ 250 mls/hr IV Q24H [facility]; Protocol Last Infusion: 09/10/20 06:09 Dose: Infused Documented by: Piperacillin Sod/Tazobactam (Sod 3.375 gm/ Sodium Chloride) 50 mls @ 12.5 mls/hr IV Q8H [facility]; Protocol Last Admin: 09/10/20 06:05 Dose: 12.5 mls/hr Documented by: Azithromycin 500 mg/ Sodium (Chloride) 250 mls @ 250 mls/hr IV Q24H [facility]; Protocol Last Infusion: 09/09/20 21:49 Dose: Infused Documented by: Insulin Aspart (Insulin Aspart 100 Unit/1 Ml) 0 unit SUBCUT WM&BEDTIME [facility]; Protocol Last Admin: 09/10/20 12:17 Dose: 12 unit Documented by: Insulin Glargine (Insulin Glargine 100 Units/1 Ml) 24 unit SUBCUT DAILY@0800 [facility] Last Admin: 09/10/20 08:11 Dose: 24 unit Documented by: Loratadine (Loratadine 10 Mg Tablet) 10 mg PO DAILY@08 [facility] Last Admin: 09/10/20 07:25 Dose: 10 mg Documented by: Magnesium Hydroxide (Magnesium Hydroxide 30 Ml Udc) 30 ml PO DAILY PRN PRN Reason: CONSTIPATON Magnesium Lactate (Magnesium Lactate 84 Mg Tablet) 84 mg PO DAILY@08 [facility] Last Admin: 09/10/20 07:25 Dose: 84 mg Documented by: Methylprednisolone Sodium Succinate (Methylprednisolone Sod Succ 40 Mg/Ml Inj) 40 mg IVP Q8H [facility] Last Admin: 09/10/20 06:05 Dose: 40 mg Documented by: Nitroglycerin (Nitroglycerin 0.4 Mg Sublingual Tablet) 0.4 mg SUBLINGUAL Q5M PRN PRN Reason: Chest Pain Ondansetron HCl (Ondansetron 4 Mg Tablet) 4 mg PO Q4H PRN PRN Reason: Nausea Pantoprazole Sodium (Pantoprazole Dr 40 Mg Tablet) 40 mg PO BID@,18 [facility] Last Admin: 09/10/20 06:06 Dose: 40 mg Documented by: Polyethylene Glycol (Polyethylene Glycol 3350 Pkt 17 Gm) 17 gm PO DAILY@08 [facility] Last Admin: 09/10/20 08:12 Dose: Not Given Documented by: Potassium Chloride (Potassium Chloride Er 20 Meq Tablet) 40 meq PO DAILY [facility] Last Admin: 09/10/20 08:11 Dose: 40 meq Documented by: Sodium Polystyrene Sulfonate (Sodium Polystyrene Sulfonate 15 Gm/60 Ml Btl) 15 gm PO Q6H [facility] Last Admin: 09/10/20 08:12 Dose: Not Given Documented by: Sucralfate (Sucralfate 1 Gm Tablet) 1 gm PO BIDAC [facility] Last Admin: 09/10/20 06:06 Dose: 1 gm Documented by: Tamsulosin HCl (Tamsulosin 0.4 Mg Capsule) 0.4 mg PO DAILY@08 [facility] Last Admin: 09/10/20 07:25 Dose: 0.4 mg Documented by: Vitals/I&O/Wt Last Vital Signs Temp 98.8 F 09/10/20 12:00 Pulse 92 09/10/20 12:00 Resp 18 09/10/20 12:00 BP 112/74 09/10/20 12:00 Pulse Ox 96 09/10/20 12:00 09/09/20 09/10/20 09/10/20 22:59 06:59 14:59 Intake Total 630 / 920 420 / 1340 440 / 440 Output Total 1000 / 1720 1400 / 3120 800 / 800 Balance -370 / -800 -980 / -1780 -360 / -360 Weight last 48 hrs Weight 138 lb 6.4 oz Physical Exam Narrative: EXAM NARRATIVE: Const COMMON NORMALS: no acute distress, average body habitus, alert and well nourished GENERAL APPEARANCE: cooperative, comfortable, well kempt and well developed ORIENTATION/CONSCIOUSNESS: Yes oriented to person (Self) [facility] COMMON NORMALS: normocephalic, atraumatic, hearing grossly normal bilaterally, external ears normal, Normal external nose present and oropharynx normal HEAD & SCALP: normocephalic and atraumatic FACE & SINUS: face symmetric NOSE: Normal external nose present EXTERNAL EAR: Yes external ears normal MOUTH: Normal oral and palatal mucosa present Eye COMMON NORMALS: Equal, round and reactive pupils present, EOMs intact bilaterally and conjunctivae normal ALIGNMENT: Yes alignment normal CONJUNCTIVA: Yes conjunctivae normal SCLERA: sclerae normal PUPIL: Yes Equal, round and reactive pupils present Neck/C-Spine COMMON NORMALS: no lymphadenopathy, supple, no JVD and Thyroid normal; negative for No carotid bruits GENERAL: Yes trachea midline THYROID: Thyroid normal Lymph LYMPHATIC: No no lymphadenopathy noted Chest COMMONS NORMALS: normal inspection of the chest CHEST: Yes Symmetrical chest wall rise and No tenderness Resp COMMON NORMALS: normal respiratory effort, No use of accessory muscles, clear to auscultation bilaterally and percussion normal EFFORT & INSPECTION: Yes able to speak in complete sentences, No tachypneic and No audible wheezes AUSCULTATION: clear to auscultation bilaterally, no crackles, no rales, no rhonchi and no wheezes PERCUSSION: percussion normal Cardio COMMON NORMALS: no JVD, regular rate, regular rhythm, S1 normal heart sound present, S2 normal heart sound present and Peripheral pulses 2+ throughout; negative for No gallops present (Cardio) and negative for No clicks present (Cardio) JUGULAR VENOUS DISTENTION: no JVD PALPATION: normal PMI, no heave, no palpable S3, no palpable S4 and no thrill RATE: regular rate RHYTHM: regular rhythm HEART SOUNDS: S1 normal heart sound present, S2 normal heart sound present, no click, no gallops and no murmurs BRUITS: no abdominal aortic bruits and no carotid bruits PERIPHERAL PULSES: Peripheral pulses 2+ throughout GI COMMON NORMALS: Normal to inspection, nondistended, normoactive bowel sounds present, Soft to palpation, non-tender and No hepatosplenomegaly present PALPATION: Yes Soft to palpation and Yes No hepatosplenomegaly present PERCUSSION: tympanic to percussion RECTAL EXAM: Yes deferred Back/Pelvis LUMBAR SPINE/LOWER BACK: Yes normal to inspection Extremity NARRATIVE EXTREMITY EXAM: Bilateral above-knee amputation Neuro COMMON NORMALS: no focal motor deficits SENSORIUM/ORIENTATION: Yes alert and Yes oriented to person (Self) CRANIAL NERVES: Yes CN normal except as noted Psych COMMON NORMALS: Normal thought process present APPEARANCE: Yes well kempt MOOD & AFFECT: Yes euthymic mood THOUGHT PROCESS: Normal thought process present THOUGHT CONTENT: Yes Normal thought content present ATTENTION/CONCENTRATION: Yes attention grossly intact MEMORY/COGNITION: Yes memory grossly intact INSIGHT: Good insight present (Psych) JUDGEMENT: Good judgement present (Psych) Urinary Catheter Management^: Mejia: Cath Placed During This Visit: yes Reason for Continuing Indwelling Catheter: Accurate Measurement of Urinary Output in Critically Ill Patients Urinary Catheter Date of Insertion: 09/08/20 Urinary Catheter Time of Insertion: 09:30 Data : 09/10/20 04:17 09/10/20 04:17 Micro: Microbiology 09/10/20 09:23 Blood Culture - Preliminary Blood SPECIMEN COLLECTED 09/10/20 09:18 Blood Culture - Preliminary Blood SPECIMEN COLLECTED 09/07/20 22:00 Wound Culture - Preliminary Groin Escherichia coli Proteus mirabilis 09/08/20 09:30 Urine Culture - Final Urine,Clean Catch Attestation for Other Data: I personally reviewed and interpreted the following: Other data: # TTE (09/08/20) CONCLUSIONS Diffuse hypokinesia left ventricular ejection fraction of 25 to 30%. Mildly dilated LV cavity. Mildly increased left atrial size. Mild mitral valve regurgitation. Thickened mitral valve. Moderate mitral annular calcification. Trace aortic valve regurgitation. Trace aortic valve regurgitation. Thickened tricuspid valve. Compared to the study from 07/27/2020, there is slight worsening of the LV systolic function. # TTE (07/27/20) CONCLUSIONS This is a limited quality echocardiogram. LV systolic function is severely reduced with EF of 30 to 35%. Regional wall motion abnormalities cannot be assessed because of limited visualization. Diastolic function is abnormal. Valvular structures are not completely assessed because of limited echocardiogram. Compared to prior study from 12/26/2019, no significant changes are noted. #Coronary angiogram 02 March 2017 Conclusions Procedure Summary #1 Left main is normal #2 LAD has luminal irregularities a patent previously placed stent #3 LCx is small nondominant vessel without significant stenosis #4 RCA has anterior takeoff difficult to engage AL-1 catheter was used it is a diffusely diseased vessel with multiple stents proximal RCA has 90% stenosis mid to distal RCA into PDA and PLB bifurcation has 60-70% tandem stenosis. It is the culprit vessel Successful PCI to proximal RCA and balloon angioplasty to mid to distal RCA Successful PCI to proximal RCA. Lesion was prepared with 2.5/15 mm MDT EUPHORA balloon, followed by deployment of RESOLUTE INTEGRITY 2.75 x 18 mm stent posted at high MOHSEN of 20 mm. Mid to distal RCA into PDA was treated with plain old-fashioned balloon angioplasty MDT EUPHORA 2.0X15mm balloon. Excellent angiographic result with KLEVER-3 flow was achieved. 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 May continue metolazone for now however eventually would need to transition and try low-dose Aldactone. -May try to add low-dose Isordil and hydralazine if blood pressure allows. DELVIS/ARB/ARNI may not be an option with his CKD. -Urine output 3.2 L with negative balance of 1.7 mL, weight is decreased from 150 to 138 pounds today (?). I do not think that is accurate. -ABG with pH of 7.47, PCO2 42 PO2 75 on FiO2 of 0.21. -BUN 51 and creatinine 2.6 with CO2 of 26. Patient is DNR and DNI and explicitly states that he does not want ICD. I think in his situation medical management would be the way to go. -After discussion with patient decision was made to do a stress test on him however with his bilateral BKA that might be difficult. I will discuss with nuclear lab first thing Saturday morning. -Tentatively I will set him up for stress test on Saturday. Status: Acute Qualifiers: Heart failure chronicity: acute on chronic Heart failure type: combined systolic and diastolic Qualified Code(s): I50.43 - Acute on chronic combined systolic (congestive) and diastolic (congestive) heart failure (2) Coronary artery disease: Status: Chronic Qualifiers: Associated angina: without angina Coronary Disease-Associated Artery/Lesion type: [place] artery [place] vs. transplanted heart: [place] heart Qualified Code(s): I25.10 - Atherosclerotic heart disease of [place] coronary artery without angina pectoris (3) Type 2 diabetes mellitus: Poorly controlled diabetes mellitus Status: Chronic Qualifiers: Chronic kidney disease stage: stage 4 (severe) Diabetes mellitus complication detail: with chronic kidney disease Diabetes mellitus complication status: with kidney complications Diabetes mellitus terminal carman insulin use: with terminal carman use Qualified Code(s): E11.22 - Type 2 diabetes mellitus with diabetic chronic kidney disease; N18.4 - Chronic kidney disease, stage 4 (severe); Z79.4 - senior living (current) use of insulin (4) Nicotine dependence, cigarettes, with other nicotine-induced disorders: Status: Chronic (5) Perineal abscess: Conservative treatment as per Dr. Chinchilla Status: Resolved (6) CKD (chronic kidney disease) stage 4, GFR 15-29 ml/min: Status: Acute Additional A&P Information Elevated troponin in setting of decompensated congestive heart failure and chronic kidney disease Normocytic anemia (iron deficiency and anemia of chronic disease) Thrombocytosis Attestations Medical Necessity Statement*: Needs hospital stay for decompensated congestive heart failure. Time Spent in Patient Care: Greater than 35 minutes (>than 50% of time spent in counselling and/or direct pt care on unit). Coding Level of Care Code Established Pt Acute Museum Tour Guide for Dimag Bruna Patient Type Established History Comprehensive Exam Comprehensive Medical Decision Making High Complexity Diagnoses Congestive heart failure I50.43 Heart failure chronicity: acute on chronic Heart failure type: combined systolic and diastolic Coronary artery disease I25.10 Associated angina: without angina Coronary Disease-Associated Artery/Lesion type: [place] artery [place] vs. transplanted heart: [place] heart Type 2 diabetes mellitus E11.22; N18.4; Z79.4 Chronic kidney disease stage: stage 4 (severe) Diabetes mellitus complication detail: with chronic kidney disease Diabetes mellitus complication status: with kidney complications Diabetes mellitus terminal carman insulin use: with terminal carman use Nicotine dependence, cigarettes, with other nicotine-induced disorders F17.218 Perineal abscess L02.215 CKD (chronic kidney disease) stage 4, GFR 15-29 ml/min N18.4 Time Spent (min) 30
--- NOTE | 2020-09-10 14:27 | PM.PN ---
Subjective Subjective: Interval history: This morning patient was examined, he is sitting up in bed, he follows commands, is a bit confused this morning, thinks he is at [place], thinks he is in [place], knows that it is August, but blurts out that Gwyn is a president, but recognizes that that is wrong, eventually knows that it is Tristan Hopkins, he follows all commands, no focal neurologic deficits, afebrile overnight, on room air, Vitals/I&O/Wt Last Vital Signs Temp 98.8 F 09/10/20 12:00 Pulse 92 09/10/20 12:00 Resp 18 09/10/20 12:00 BP 112/74 09/10/20 12:00 Pulse Ox 96 09/10/20 12:00 09/09/20 09/10/20 09/10/20 22:59 06:59 14:59 Intake Total 630 / 920 420 / 1340 440 / 440 Output Total 1000 / 1720 1400 / 3120 800 / 800 Balance -370 / -800 -980 / -1780 -360 / -360 Weight last 48 hrs Weight 62.777 kg Physical Exam Const: COMMON NORMALS: no acute distress ORIENTATION/CONSCIOUSNESS: Yes awake, Yes oriented to person and Yes confused; not oriented to place and not oriented to time HENMT: COMMON NORMALS: normocephalic HEAD & SCALP: normocephalic Neck/C-Spine: COMMON NORMALS: no JVD Lymph: LYMPHATIC: no lymphadenopathy noted Resp: COMMON NORMALS: normal respiratory effort, No retractions, No use of accessory muscles and clear to auscultation bilaterally AUSCULTATION: clear to auscultation bilaterally Cardio: COMMON NORMALS: no JVD, regular rate, regular rhythm, S1 normal heart sound present and S2 normal heart sound present RATE: regular rate RHYTHM: regular rhythm HEART SOUNDS: S1 normal heart sound present and S2 normal heart sound present GI: COMMON NORMALS: Normal to inspection, nondistended, normoactive bowel sounds present, Soft to palpation, non-tender, No hepatosplenomegaly present, no masses and no bruits PALPATION: Yes Soft to palpation and Yes No hepatosplenomegaly present Extremity: COMMON NORMALS: capillary refill normal, no clubbing, cyanosis or edema, no calf tenderness and no pedal edema NARRATIVE EXTREMITY EXAM: Bilateral below-knee amputations Neuro: COMMON NORMALS: CN's II-XII intact bilaterally, moves all extremities and no focal motor deficits SENSORIUM/ORIENTATION: Yes oriented to person, No oriented to place and No oriented to time Psych: COMMON NORMALS: mental status grossly normal Urinary Catheter Management^: Mejia: Cath Placed During This Visit: yes Reason for Continuing Indwelling Catheter: Accurate Measurement of Urinary Output in Critically Ill Patients Urinary Catheter Date of Insertion: 09/08/20 Urinary Catheter Time of Insertion: 09:30 Data : 09/10/20 04:17 09/10/20 04:17 Micro: Microbiology 09/10/20 09:23 Blood Culture - Preliminary Blood SPECIMEN COLLECTED 09/10/20 09:18 Blood Culture - Preliminary Blood SPECIMEN COLLECTED 09/07/20 22:00 Wound Culture - Preliminary Groin Escherichia coli Proteus mirabilis 09/08/20 09:30 Urine Culture - Final Urine,Clean Catch A&P Assessment and plan (1) Acute respiratory failure with hypoxia: -Secondary to healthcare associated pneumonia, likely aspiration pneumonia/pneumonitis, CHF exacerbation, COPD -Recent hospital admission for pneumonia, chest x-ray shows bilateral pleural effusions,, pulmonary edema, pneumonitis, right middle lobe and right lower lobe pneumonia -Patient has had multiple swallow eval's in the past, with evidence of aspiration -BNP 88533 -Troponin 75, 6-hour 78.28, delta 3.28 -CT chest shows: 1. Diffuse airspace infiltrate throughout the right lower lobe, consistent with pneumonia. This has worsened when compared to 07/26/2020. 2. Virtual complete atelectasis of the right middle lobe. This is new when compared to the previous study. 3. Mild prominence of the pulmonary interstitium bilaterally, suggesting interstitial pulmonary edema. 4. Bilateral pleural effusions, right larger than left. This is new when compared to the previous study. 5. Changes of old granulomatous disease are identified. 6. Cardiomegaly is present. No pericardial effusion. -ABG this morning shows pH 7.47, PCO2 42.3, PO2 75.3, bicarb 31 -Echocardiogram shows diffuse hypokinesis, left ventricular ejection fraction 25 to 30% -Chest x-ray shows resolving airspace and interstitial infiltrative changes right lower lung, resolving right pleural effusion Plan: -Sputum cultures, blood cultures, urine bacterial antigens also far have been negative -Telemetry monitoring -Currently on, BiPAP during the day, BiPAP schedule during the night -Broad-spectrum antibiotic therapy vancomycin, Zosyn and azithromycin, will de-escalate in the next 24 hours -Increased leukocytosis to 24.8, pro-Joey negative, afebrile, blood cultures urine cultures negative, likely secondary to steroids -De-escalate to prednisone 40 mg daily, DuoNebs every 4 hours -Lasix 40 mg IV every 12 hours -Monitor creatinine, monitor urine output closely -Has had a bronchoscopy for recurrent pneumonias in right middle lobe, which has been unremarkable, has chronic right middle lobe atelectasis secondary to adenopathy, negative for postobstructive in the past -Discussed the case with Dr. Berger, no need for thoracocentesis at this point, continue to clinically monitor -Echocardiogram shows diffuse hypokinesis of the left ventricle, EF 25 to 30%, slight worsening of left left ventricular function, cardiology has been consulted -Patient is DNR/DNI -Heparin for DVT prophylaxis on hold given anemia Plan for today: Continue diuresis, neurochecks, aspiration precautions, continue antibiotics, CT of the head ordered, carotid artery ultrasound ordered Status: Acute (2) CAD (coronary artery disease): #1 Left main is normal #2 LAD has luminal irregularities a patent previously placed stent #3 LCx is small nondominant vessel without significant stenosis #4 RCA has anterior takeoff difficult to engage AL-1 catheter was used it is a diffusely diseased vessel with multiple stents proximal RCA has 90% stenosis mid to distal RCA into PDA and PLB bifurcation has 60-70% tandem stenosis. It is the culprit vessel Successful PCI to proximal RCA and balloon angioplasty to mid to distal RCA Plan: -I assume patient remains on dual antiplatelet therapy due to severe CAD, will have cardiology weigh in -Continue aspirin, Plavix resumed, statin, Coreg -Serial troponins, serial EKGs -Have consulted cardiology Status: Acute (3) Rectal abscess: -Status post incision and drainage by ER -Dressing changes -Surgery has been consulted by ER physician -On broad-spectrum antibiotic therapy as above -Surgery on consult Status: Acute (4) Acute hyperkalemia: -Potassium 3.5 -History of acute on chronic hyperkalemia -Received insulin, D50, calcium gluconate -On Lasix therapy -Kayexalate on hold -telemetry monitoring Status: Acute (5) Acute on chronic renal failure: -History of CKD stage III -On last admission, month ago, had acute renal failure, creatinine as high as 6, requiring dialysis, dialysis catheter removed -Currently creatinine is 2.8 -I am suspecting that it is likely secondary to cardiorenal syndrome some hypovolemia -Carefully diuresis -Monitor creatinine, monitor urine output Status: Acute (6) COVID-19: -No significant COVID-19 symptoms Status: Acute (7) Chronic systolic CHF (congestive heart failure): -echo 07/2020 LV systolic function is severely reduced with EF of 30 to 35%. Regional wall motion abnormalities cannot be assessed because of limited visualization. Diastolic function is abnormal. Valvular structures are not completely assessed because of limited echocardiogram. Compared to prior study from 12/26/2019, no significant changes are noted. -Repeat echocardiogram shows diffuse hypokinesia, EF of 25% Status: Acute (8) S/P bilateral BKA (below knee amputation): -Secondary to severe peripheral vascular disease, vasculopathy, diabetes Status: Chronic (9) Type 2 diabetes mellitus: -Continue sliding scale, Lantus 24 units daily Status: Chronic Qualifiers: Chronic kidney disease stage: stage 4 (severe) Diabetes mellitus complication detail: with chronic kidney disease Diabetes mellitus complication status: with kidney complications Diabetes mellitus halfway insulin use: with intermodal customer service use Qualified Code(s): E11.22 - Type 2 diabetes mellitus with diabetic chronic kidney disease; N18.4 - Chronic kidney disease, stage 4 (severe); Z79.4 - alf (current) use of insulin (10) Peripheral vascular disease: Aspirin, statin, Plavix Status: Chronic (11) Hypertension: Status: Chronic (12) CKD stage 3 secondary to diabetes: Status: Chronic (13) COPD (chronic obstructive pulmonary disease): Status: Chronic (14) Acute on chronic anemia: -Hemoglobin 8.5 continue Plavix -Likely multifactorial from pneumonia, CKD, slow GI bleed -Monitor hemoglobin closely, monitor hemodynamics -Iron low at 11, ferritin 169, folate within normal limits, B12 within normal limits -Protonix 40 twice daily, carafate -Plavix resumed -Continue heparin -We will transfuse if hemoglobin drops below 7, Status: Acute (15) Acidosis: Status: Acute (16) Thrombocytosis: -Likely secondary to infection, chronic hypoxia -Will do peripheral smear Status: Acute (17) AMS (altered mental status): -Delirium likely secondary to pneumonia -Order CT of the head, carotid artery ultrasound, neurochecks, aspiration precautions Status: Acute Attestations Medical Necessity Statement*: Patient requires hospitalization for acute respiratory failure secondary pneumonia, CHF, now with acute delirium Coding Level of Care Code Acute Assistant [employer] for [employer] Diagnoses Acute respiratory failure with hypoxia J96.01 CAD (coronary artery disease) I25.10 Rectal abscess K61.1 Acute hyperkalemia E87.5 Acute on chronic renal failure N17.9; N18.9 COVID-19 U07.1 Chronic systolic CHF (congestive heart failure) I50.22 S/P bilateral BKA (below knee amputation) Z89.512; Z89.511 Type 2 diabetes mellitus E11.22; N18.4; Z79.4 Chronic kidney disease stage: stage 4 (severe) Diabetes mellitus complication detail: with chronic kidney disease Diabetes mellitus complication status: with kidney complications Diabetes mellitus intermodal customer service insulin use: with halfway use Peripheral vascular disease I73.9 Hypertension I10 CKD stage 3 secondary to diabetes E11.22; N18.3 COPD (chronic obstructive pulmonary disease) J44.9 Acute on chronic anemia D64.9 Acidosis E87.2 Thrombocytosis D47.3 AMS (altered mental status) R41.82
[2020-09-10 17:01] LABS: Glucose Point of Care 127 mg/dL (70-110)
[2020-09-10] MEDS: sodium polystyrene sulfonate 15 gm/60 mL Btl PO ×2 (17:21→21:47)
[2020-09-10 21:17] LABS: Glucose Point of Care 125 mg/dL (70-110)
[2020-09-10] MEDS: atorvastatin 40 mg Tablet 80 MG PO (21:47)
[2020-09-10] MEDS: heparin 5,000 unit/mL INJ 1 mL 5000 UNIT SUBCUT (21:47)
[2020-09-10] MEDS: azithromycin 500 MG in sodium chloride 0.9% 250 ML 250 MG IV (23:13)
[2020-09-11] VITALS (23 sets, daily range): BP systolic 96–127; BP diastolic 56–80; PULSE 70–115; RESP 14–20; TEMP 36.4–37.4; O2SAT 91–100
[2020-09-11] MEDS: vancomycin 750 MG in sodium chloride 0.9% 250 ML 250 MG IV (00:21)
[2020-09-11] MEDS: piperacillin-tazobactam 3.375 GM in sodium chloride 0.9% (plus) 50 ML IV ×2 (01:32→08:11)
[2020-09-11] MEDS: ipratropium-albuterol 3 mL Neb INHALATION ×6 (03:33→23:57)
[2020-09-11 05:37] LABS: Basophils # 0.1 10^3/uL (0.0-0.1); Basophils % 0.4 %; Eosinophils # 0.2 10^3/uL (0.0-0.8); Eosinophils % 0.9 %; Hemoglobin 10.6 g/dL (11.7-16.6); Lymphocytes # 3.3 10^3/uL (0.8-4.8); Lymphocytes % 15.8 %; Mean Corpuscular HGB Conc 31.2 g/dL (30.0-36.0); Mean Corpuscular Hemoglobin 27.1 pg (28.0-34.0); Mean Platelet Volume 9.1 fL (7.4-10.4); Monocytes # 1.7 10^3/uL (0.2-0.9); Neutrophils % 70.2 %; Nucleated Red Blood Cells % 0 %; Platelet Count 694 10^3/cmm (130-400); Red Blood Count 3.91 10^6/uL (4.1-5.3); Red Cell Distribution Width 15.2 % (12.1-15.1); White Blood Count 20.7 10^3/uL (4.0-10.0)
[2020-09-11 06:07] LABS: NT Pro B Type Natriuretic Pept 11909 pg/mL (0-125)
[2020-09-11 06:19] LABS: Alanine Aminotransferase 14 U/L (0-41); Albumin Level 2.8 g/dL (3.5-5.2); Alkaline Phosphatase 115 IU/L (40-130); Anion Gap 23.2 (5-19); Aspartate Amino Transferase 16 U/L (0-40); Blood Urea Nitrogen 61 mg/dL (8-23); C Reactive Protein 17.9 mg/L (0.0-4.9); Calcium 9.1 mg/dL (8.5-10.5); Carbon Dioxide 29 mmol/L (22-29); Chloride 96 mmol/L (98-107); Glucose 117 mg/dL (65-115); Osmolality Calculated 318 mOsm/kg (285-295); Phosphorus 3.9 mg/dL (2.5-4.5); Potassium 3.2 mmol/L (3.5-5.1); Sodium 145 mmol/L (136-145); Total Bilirubin 0.2 mg/dL (0.15-1.2); Total Protein 6.8 g/dL (6.6-8.7)
[2020-09-11] MEDS: pantoprazole DR 40 mg Tablet PO ×2 (06:26→17:08)
[2020-09-11 06:50] LABS: Glucose Point of Care 150 mg/dL (70-110)
--- NOTE | 2020-09-11 07:00 | XRR_ITS ---
PROCEDURE INFORMATION: Exam: XR Chest, 1 View Exam date and time: 09/11/2020 7:59 AM Age: 64 years old Clinical indication: Shortness of breath; Additional info: SOB TECHNIQUE: Imaging protocol: XR of the chest Views: 1 view. COMPARISON: CR (CHEST, ) 09/10/2020 8:31 AM FINDINGS: Lungs: See Pleural space finding. Pleural space: There is persistent infiltration in the right lung base with small right pleural effusion. This has improved since the previous radiograph. Bilateral calcified granulomas and calcified mediastinal and pulmonary hilar lymph nodes are present. No new infiltrates are seen. Heart/Mediastinum: Unremarkable. No cardiomegaly. Bones/joints: Unremarkable. XR/XR chest 1V portable [id number] IMPRESSION: Improving right basilar infiltrate and small pleural effusion.
[2020-09-11] MEDS: budesonide 0.5 mg/2 mL Neb INHALATION ×2 (07:36→21:13)
--- NOTE | 2020-09-11 08:00 | PC.NURSE ---
wound care completed, repositioned in bed, call light in reach. Patient is awake alert and oriented X2 with intermittent confusion, easy to reorient patient to surroundings.
[2020-09-11] MEDS: insulin glargine 100 units/1 mL 24 UNIT SUBCUT (08:09)
[2020-09-11] MEDS: buPROPion SR (12 HR) 150 mg Tablet PO ×2 (08:10→19:15)
[2020-09-11] MEDS: heparin 5,000 unit/mL INJ 1 mL 5000 UNIT SUBCUT ×2 (08:10→19:15)
[2020-09-11] MEDS: clopidogrel 75 mg Tablet PO (08:10)
[2020-09-11] MEDS: tamsulosin 0.4 mg Capsule PO (08:10)
[2020-09-11] MEDS: carvedilol 3.125 mg Tablet PO ×2 (08:10→19:15)
[2020-09-11] MEDS: ferrous sulfate EC 325 mg Tablet PO ×2 (08:10→17:08)
[2020-09-11] MEDS: FUROsemide 10 mg/mL SDV 4mL 40 MG IVP (08:10)
[2020-09-11] MEDS: sodium polystyrene sulfonate 15 gm/60 mL Btl PO ×2 (08:10→13:28)
[2020-09-11] MEDS: loratadine 10 mg Tablet PO (08:11)
[2020-09-11] MEDS: citalopram 20 mg Tablet PO (08:11)
[2020-09-11] MEDS: potassium chloride ER 20 mEq Tablet 40 MEQ PO ×2 (08:11→09:15)
[2020-09-11] MEDS: aspirin 81 mg EC Tablet PO (08:11)
[2020-09-11] MEDS: predniSONE 20 mg Tablet 40 MG PO (08:11)
[2020-09-11] MEDS: polyethylene glycol 3350 Pkt 17 gm PO (08:26)
--- NOTE | 2020-09-11 08:55 | P.PN_ITS ---
Subjective Subjective: Interval history: He denies any CP or SOB Medications: Reviewed: Yes Medication Review Details: Current Medications Acetaminophen (Acetaminophen 325 Mg Tablet) 650 mg PO Q4H PRN PRN Reason: Pain Albuterol Sulfate (Albuterol 2.5 Mg/0.5 Ml Neb) 2.5 mg INHALATION Q4H. RESPIRATORY PRN PRN Reason: Shortness Of Breath Albuterol/Ipratropium (Ipratropium-Albuterol 3 Ml Neb) 3 ml INHALATION Q4H.RESPIRATORY [facility] Last Admin: 09/11/20 07:36 Dose: 3 ml Documented by: Aspirin (Aspirin 81 Mg Ec Tablet) 81 mg PO DAILY@08 [facility] Last Admin: 09/10/20 07:25 Dose: 81 mg Documented by: Atorvastatin Calcium (Atorvastatin 40 Mg Tablet) 80 mg PO DAILY@20 [facility] Last Admin: 09/10/20 21:47 Dose: 80 mg Documented by: Azithromycin (Azithromycin 250 Mg Tablet) 250 mg PO DAILY [facility]; Protocol Bisacodyl (Bisacodyl 10 Mg Supp) 10 mg LA DAILY PRN PRN Reason: CONSTIPATED Budesonide (Budesonide 0.5 Mg/2 Ml Neb) 0.5 mg INHALATION BID.RESPIRATORY [facility] Last Admin: 09/11/20 07:36 Dose: 0.5 mg Documented by: Bupropion HCl (Bupropion Sr (12 Hr) 150 Mg Tablet) 150 mg PO Q12H [facility] Last Admin: 09/10/20 21:47 Dose: 150 mg Documented by: Carvedilol (Carvedilol 3.125 Mg Tablet) 3.125 mg PO BID@,20 [facility] Last Admin: 09/10/20 21:47 Dose: 3.125 mg Documented by: Citalopram Hydrobromide (Citalopram 20 Mg Tablet) 20 mg PO DAILY@08 [facility] Last Admin: 09/10/20 07:25 Dose: 20 mg Documented by: Clopidogrel Bisulfate (Clopidogrel 75 Mg Tablet) 75 mg PO DAILY [facility] Last Admin: 09/10/20 08:11 Dose: 75 mg Documented by: Dextrose (Dextrose 50% Syringe 50 Ml) 25 ml IVP ONCE PRN; Protocol PRN Reason: hypoglycemia protocol Dextrose (Dextrose 50% Syringe 50 Ml) 50 ml IVP PRN PRN; Protocol PRN Reason: hypoglycemia protocol Ferrous Sulfate (Ferrous Sulfate Ec 325 Mg Tablet) 325 mg PO BIDWM [facility] Last Admin: 09/10/20 17:26 Dose: 325 mg Documented by: Furosemide (Furosemide 10 Mg/Ml Sdv 4ml) 40 mg IVP Q12H [facility] Last Admin: 09/10/20 20:16 Dose: 40 mg Documented by: Glucagon (Glucagon 1 Mg/Ml Inj 1 Ml) 1 mg IM ONCE PRN; Protocol PRN Reason: Adult Acute Hypoglycemia Prot. Heparin Sodium (Beef Lung) (Heparin 5,000 Unit/Ml Inj 1 Ml) 5,000 unit SUBCUT Q12H [facility] Last Admin: 09/10/20 21:47 Dose: 5,000 unit Documented by: Dextrose (D5w) 500 mls @ 100 mls/hr IV ONCE PRN; Protocol PRN Reason: Adult Acute Hypoglycemia Prot Cefepime HCl 2,000 mg/ Sodium (Chloride) 50 mls @ 100 mls/hr IV Q24H [facility]; Protocol Insulin Aspart (Insulin Aspart 100 Unit/1 Ml) 0 unit SUBCUT WM&BEDTIME [facility]; Protocol Last Admin: 09/10/20 21:18 Dose: Not Given Documented by: Insulin Glargine (Insulin Glargine 100 Units/1 Ml) 24 unit SUBCUT DAILY@0800 [facility] Last Admin: 09/10/20 08:11 Dose: 24 unit Documented by: Loratadine (Loratadine 10 Mg Tablet) 10 mg PO DAILY@08 [facility] Last Admin: 09/10/20 07:25 Dose: 10 mg Documented by: Magnesium Hydroxide (Magnesium Hydroxide 30 Ml Udc) 30 ml PO DAILY PRN PRN Reason: CONSTIPATON Magnesium Lactate (Magnesium Lactate 84 Mg Tablet) 84 mg PO DAILY@08 [facility] Last Admin: 09/10/20 07:25 Dose: 84 mg Documented by: Nitroglycerin (Nitroglycerin 0.4 Mg Sublingual Tablet) 0.4 mg SUBLINGUAL Q5M PRN PRN Reason: Chest Pain Olanzapine (Olanzapine 10 Mg Vial) 5 mg IM Q6H PRN PRN Reason: SEVERE AGITATION Ondansetron HCl (Ondansetron 4 Mg Tablet) 4 mg PO Q4H PRN PRN Reason: Nausea Pantoprazole Sodium (Pantoprazole Dr 40 Mg Tablet) 40 mg PO BID@18 [facility] Last Admin: 09/11/20 06:26 Dose: 40 mg Documented by: Polyethylene Glycol (Polyethylene Glycol 3350 Pkt 17 Gm) 17 gm PO DAILY@08 [facility] Last Admin: 09/10/20 08:12 Dose: Not Given Documented by: Potassium Chloride (Potassium Chloride Er 20 Meq Tablet) 40 meq PO DAILY [facility] Last Admin: 09/10/20 08:11 Dose: 40 meq Documented by: Prednisone (Prednisone 20 Mg Tablet) 40 mg PO DAILY [facility] Sodium Polystyrene Sulfonate (Sodium Polystyrene Sulfonate 15 Gm/60 Ml Btl) 15 gm PO Q6H [facility] Last Admin: 09/11/20 02:05 Dose: Not Given Documented by: Sucralfate (Sucralfate 1 Gm Tablet) 1 gm PO BIDAC [facility] Last Admin: 09/10/20 17:21 Dose: 1 gm Documented by: Tamsulosin HCl (Tamsulosin 0.4 Mg Capsule) 0.4 mg PO DAILY@08 [facility] Last Admin: 09/10/20 07:25 Dose: 0.4 mg Documented by: Vitals/I&O/Wt Last Vital Signs Temp 97.7 F 09/11/20 07:12 Pulse 110 H 09/11/20 07:44 Resp 17 09/11/20 07:38 BP 127/80 09/11/20 07:12 Pulse Ox 92 09/11/20 07:38 09/10/20 09/11/20 09/11/20 22:59 06:59 14:59 Intake Total 350 / 1040 Output Total 900 / 1700 900 / 2600 Balance -550 / -660 -900 / -1560 Physical Exam Narrative: EXAM NARRATIVE: EXAM NARRATIVE: Const COMMON NORMALS: no acute distress, average body habitus, alert and well nourished GENERAL APPEARANCE: cooperative, comfortable, well kempt and well developed ORIENTATION/CONSCIOUSNESS: Yes oriented to person (Self) [facility] COMMON NORMALS: normocephalic, atraumatic, hearing grossly normal bilaterally, external ears normal, Normal external nose present and oropharynx normal HEAD & SCALP: normocephalic and atraumatic FACE & SINUS: face symmetric NOSE: Normal external nose present EXTERNAL EAR: Yes external ears normal MOUTH: Normal oral and palatal mucosa present Eye COMMON NORMALS: Equal, round and reactive pupils present, EOMs intact bilaterally and conjunctivae normal ALIGNMENT: Yes alignment normal CONJUNCTIVA: Yes conjunctivae normal SCLERA: sclerae normal PUPIL: Yes Equal, round and reactive pupils present Neck/C-Spine COMMON NORMALS: no lymphadenopathy, supple, no JVD and Thyroid normal; negative for No carotid bruits GENERAL: Yes trachea midline THYROID: Thyroid normal Lymph LYMPHATIC: No no lymphadenopathy noted Chest COMMONS NORMALS: normal inspection of the chest CHEST: Yes Symmetrical chest wall rise and No tenderness Resp COMMON NORMALS: normal respiratory effort, No use of accessory muscles, clear to auscultation bilaterally and percussion normal EFFORT & INSPECTION: Yes able to speak in complete sentences, No tachypneic and No audible wheezes AUSCULTATION: clear to auscultation bilaterally, no crackles, no rales, no rho nchi and no wheezes PERCUSSION: percussion normal Cardio COMMON NORMALS: no JVD, regular rate, regular rhythm, S1 normal heart sound present, S2 normal heart sound present and Peripheral pulses 2+ throughout; negative for No gallops present (Cardio) and negative for No clicks present (Cardio) JUGULAR VENOUS DISTENTION: no JVD PALPATION: normal PMI, no heave, no palpable S3, no palpable S4 and no thrill RATE: regular rate RHYTHM: regular rhythm HEART SOUNDS: S1 normal heart sound present, S2 normal heart sound present, no click, no gallops and no murmurs BRUITS: no abdominal aortic bruits and no carotid bruits PERIPHERAL PULSES: Peripheral pulses 2+ throughout GI COMMON NORMALS: Normal to inspection, nondistended, normoactive bowel sounds present, Soft to palpation, non-tender and No hepatosplenomegaly present PALPATION: Yes Soft to palpation and Yes No hepatosplenomegaly present PERCUSSION: tympanic to percussion RECTAL EXAM: Yes deferred Back/Pelvis LUMBAR SPINE/LOWER BACK: Yes normal to inspection Extremity NARRATIVE EXTREMITY EXAM: Bilateral above-knee amputation Neuro COMMON NORMALS: no focal motor deficits SENSORIUM/ORIENTATION: Yes alert and Yes oriented to person (Self) CRANIAL NERVES: Yes CN normal except as noted Psych COMMON NORMALS: Normal thought process present APPEARANCE: Yes well kempt MOOD & AFFECT: Yes euthymic mood THOUGHT PROCESS: Normal thought process present THOUGHT CONTENT: Yes Normal thought content present ATTENTION/CONCENTRATION: Yes attention grossly intact MEMORY/COGNITION: Yes memory grossly intact INSIGHT: Good insight present (Psych) JUDGEMENT: Good judgement present (Psych) Urinary Catheter Management^: Mejia: Cath Placed During This Visit: yes Reason for Continuing Indwelling Catheter: Accurate Measurement of Urinary Output in Critically Ill Patients Urinary Catheter Date of Insertion: 09/08/20 Urinary Catheter Time of Insertion: 09:30 Data : 09/11/20 04:40 09/11/20 04:40 Other Labs: Laboratory Tests 09/09/20 09/10/20 09/11/20 04:20 04:17 04:40 BUN 51 H 54 H Creatinine 2.6 H 2.8 H NT-Pro-B Natriuret Pep 55633 H 67633 H Micro: Microbiology 09/10/20 09:23 Blood Culture - Preliminary Blood SPECIMEN COLLECTED 09/10/20 09:18 Blood Culture - Preliminary Blood SPECIMEN COLLECTED 09/07/20 22:00 Wound Culture - Preliminary Groin Escherichia coli Proteus mirabilis 09/08/20 09:30 Urine Culture - Final Urine,Clean Catch Other data: # Carotid duplex Impression: 1. No hemodynamically significant ICA stensosis. 2. Normal antegradew flow within the vertebral arteries. # TTE (09/08/20) CONCLUSIONS Diffuse hypokinesia left ventricular ejection fraction of 25 to 30%. Mildly dilated LV cavity. Mildly increased left atrial size. Mild mitral valve regurgitation. Thickened mitral valve. Moderate mitral annular calcification. Trace aortic valve regurgitation. Trace aortic valve regurgitation. Thickened tricuspid valve. Compared to the study from 07/27/2020, there is slight worsening of the LV systolic function. # TTE (07/27/20) CONCLUSIONS This is a limited quality echocardiogram. LV systolic function is severely reduced with EF of 30 to 35%. Regional wall motion abnormalities cannot be assessed because of limited visualization. Diastolic function is abnormal. Valvular structures are not completely assessed because of limited echocardiogram. Compared to prior study from 12/26/2019, no significant changes are noted. #Coronary angiogram 02 March 2017 Conclusions Procedure Summary #1 Left main is normal #2 LAD has luminal irregularities a patent previously placed stent #3 LCx is small nondominant vessel without significant stenosis #4 RCA has anterior takeoff difficult to engage AL-1 catheter was used it is a diffusely diseased vessel with multiple stents proximal RCA has 90% stenosis mid to distal RCA into PDA and PLB bifurcation has 60-70% tandem stenosis. It is the culprit vessel Successful PCI to proximal RCA and balloon angioplasty to mid to distal RCA Successful PCI to proximal RCA. Lesion was prepared with 2.5/15 mm MDT EUPHORA balloon, followed by deployment of RESOLUTE INTEGRITY 2.75 x 18 mm stent posted at high MOHSEN of 20 mm. Mid to distal RCA into PDA was treated with plain old-fashioned balloon angioplasty MDT CLEM[place]A 2.0X15mm balloon. Excellent angiographic result with KLEVER-3 flow was achieved. 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 -renal function worsened and he is tachycardic. Hold lasix. May need to bolus IV fluids as his PO intake is poor. -On Coreg 3.125 twice daily. -May try to add low-dose Isordil and hydralazine if blood pressure allows. DELVIS/ARB/ARNI may not be an option with his CKD. -Urine output 2.6 L with negative balance of 2 L -Last ABG with pH of 7.47, PCO2 42 PO2 75 on FiO2 of 0.21. -BUN 51-->56--61 and creatinine 2.6-->2.8-->2.9 with CO2 of 26->29. Patient is DNR and DNI and explicitly states that he does not want ICD. I think in his situation medical management would be the way to go. -After discussion with patient decision was made to do a stress test on him however with his bilateral BKA that might be difficult. -Tentatively I will set him up for stress test on Saturday. Status: Acute Qualifiers: Heart failure chronicity: acute on chronic Heart failure type: combined systolic and diastolic Qualified Code(s): I50.43 - Acute on chronic combined systolic (congestive) and diastolic (congestive) heart failure (2) Coronary artery disease: Status: Chronic Qualifiers: Associated angina: without angina Coronary Disease-Associated Artery/Lesion type: [place] artery [place] vs. transplanted heart: [place] heart Qualified Code(s): I25.10 - Atherosclerotic heart disease of [place] coronary artery without angina pectoris (3) Type 2 diabetes mellitus: Poorly controlled diabetes mellitus Status: Chronic Qualifiers: Chronic kidney disease stage: stage 4 (severe) Diabetes mellitus complication detail: with chronic kidney disease Diabetes mellitus complication status: with kidney complications Diabetes mellitus half-way insulin use: with half-way use Qualified Code(s): E11.22 - Type 2 diabetes mellitus with diabetic chronic kidney disease; N18.4 - Chronic kidney disease, stage 4 (severe); Z79.4 - retirement (current) use of insulin (4) Nicotine dependence, cigarettes, with other nicotine-induced disorders: Status: Chronic (5) Perineal abscess: Status: Resolved (6) CKD (chronic kidney disease) stage 4, GFR 15-29 ml/min: Status: Acute Additional A&P Information Elevated troponin in setting of decompensated congestive heart failure and chronic kidney disease Normocytic anemia (iron deficiency and anemia of chronic disease) Thrombocytosis Hypokalemia: replaced Attestations Medical Necessity Statement*: Needs hospital stay for decompensated congestive heart failure. Time Spent in Patient Care: Greater than 35 minutes (>than 50% of time spent in counselling and/or direct pt care on unit) . Coding Level of Care Code Acute Tow Picker for Pepe Mcfarland Diagnoses Congestive heart failure I50.43 Heart failure chronicity: acute on chronic Heart failure type: combined systolic and diastolic Coronary artery disease I25.10 Associated angina: without angina Coronary Disease-Associated Artery/Lesion type: [place] artery [place] vs. 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
[2020-09-11] MEDS: azithromycin 250 mg Tablet PO (09:15)
[2020-09-11] MEDS: sucralfate 1 gm Tablet PO ×2 (09:15→17:08)
[2020-09-11] MEDS: magnesium lactate 84 mg Tablet PO (09:22)
[2020-09-11 10:49] LABS: Glucose Point of Care 232 mg/dL (70-110)
--- NOTE | 2020-09-11 12:09 | P.PN_ITS ---
Subjective Subjective: Interval history: Patient was examined this morning, he is alert to person, place, not to time, still have some persistent confusion, but is easily redirectable, has no complaints, no chest pain, no shortness of breath, no lightheadedness, dizziness, no nausea, no vomiting Vitals/I&O/Wt Last Vital Signs Temp 97.7 F 09/11/20 07:12 Pulse 110 H 09/11/20 11:36 Resp 17 09/11/20 11:31 BP 127/80 09/11/20 07:12 Pulse Ox 92 09/11/20 11:31 09/10/20 09/11/20 09/11/20 22:59 06:59 14:59 Intake Total 350 / 1040 50 / 1090 480 / 480 Output Total 900 / 1700 900 / 2600 600 / 600 Balance -550 / -660 -850 / -1510 -120 / -120 Physical Exam Const: COMMON NORMALS: no acute distress ORIENTATION/CONSCIOUSNESS: Yes awake, Yes oriented to person and Yes oriented to place; not oriented to time HENMT: COMMON NORMALS: normocephalic HEAD & SCALP: normocephalic Neck/C-Spine: COMMON NORMALS: no JVD Resp: COMMON NORMALS: normal respiratory effort, No retractions, No use of accessory muscles and clear to auscultation bilaterally AUSCULTATION: clear to auscultation bilaterally Cardio: COMMON NORMALS: no JVD, regular rate, regular rhythm, S1 normal heart sound present and S2 normal heart sound present RATE: regular rate RHYTHM: regular rhythm HEART SOUNDS: S1 normal heart sound present and S2 normal heart sound present GI: COMMON NORMALS: Normal to inspection, nondistended, normoactive bowel sounds present, Soft to palpation, non-tender, No hepatosplenomegaly present, no masses and no bruits PALPATION: Yes Soft to palpation and Yes No hepatosplenomegaly present Extremity: COMMON NORMALS: capillary refill normal, no clubbing, cyanosis or edema, no calf tenderness and no pedal edema NARRATIVE EXTREMITY EXAM: Bilateral below-knee amputations Neuro: SENSORIUM/ORIENTATION: Yes oriented to person, Yes oriented to place and No oriented to time Psych: COMMON NORMALS: mental status grossly normal Urinary Catheter Management^: Mejia: Cath Placed During This Visit: yes Reason for Continuing Indwelling Catheter: Accurate Measurement of Urinary Output in Critically Ill Patients Urinary Catheter Date of Insertion: 09/08/20 Urinary Catheter Time of Insertion: 09:30 Data : 09/11/20 04:40 09/11/20 04:40 Micro: Microbiology 09/10/20 08:57 Urine Culture - Preliminary Urine Catheterized 09/10/20 09:23 Blood Culture - Preliminary Blood SPECIMEN COLLECTED 09/10/20 09:18 Blood Culture - Preliminary Blood SPECIMEN COLLECTED 09/07/20 22:00 Wound Culture - Preliminary Groin Escherichia coli Proteus mirabilis 09/08/20 09:30 Urine Culture - Final Urine,Clean Catch A&P Assessment and plan (1) Acute respiratory failure with hypoxia: -Secondary to healthcare associated pneumonia, likely aspiration pneumonia/pneumonitis, CHF exacerbation, COPD -Recent hospital admission for pneumonia, chest x-ray shows bilateral pleural effusions,, pulmonary edema, pneumonitis, right middle lobe and right lower lobe pneumonia -Patient has had multiple swallow eval's in the past, with evidence of aspiration -BNP 85753 -Troponin 75, 6-hour 78.28, delta 3.28 -CT chest shows: 1. Diffuse airspace infiltrate throughout the right lower lobe, consistent with pneumonia. This has worsened when compared to 07/26/2020. 2. Virtual complete atelectasis of the right middle lobe. This is new when compared to the previous study. 3. Mild prominence of the pulmonary interstitium bilaterally, suggesting interstitial pulmonary edema. 4. Bilateral pleural effusions, right larger than left. This is new when compared to the previous study. 5. Changes of old granulomatous disease are identified. 6. Cardiomegaly is present. No pericardial effusion. -ABG this morning shows pH 7.47, PCO2 42.3, PO2 75.3, bicarb 31 -Echocardiogram shows diffuse hypokinesis, left ventricular ejection fraction 25 to 30% -Chest x-ray shows resolving airspace and interstitial infiltrative changes right lower lung, resolving right pleural effusion Plan: -Sputum cultures, blood cultures, urine bacterial antigens also far have been negative -Telemetry monitoring -Currently on room air, BiPAP during the day, BiPAP schedule during the night -Broad-spectrum antibiotic therapy vancomycin, Zosyn and azithromycin, will de- escalate to azithromycin and cefepime -Increased leukocytosis to 20.7, pro-Joey negative, afebrile, blood cultures urine cultures negative, likely secondary to steroids -De-escalate to prednisone 40 mg daily, DuoNebs every 4 hours -Lasix 40 mg IV every 12 hours on hold, as creatinine is 2.9, urine output 2400, BNP 23119 -Monitor creatinine, monitor urine output closely -Has had a bronchoscopy for recurrent pneumonias in right middle lobe, which has been unremarkable, has chronic right middle lobe atelectasis secondary to adenopathy, negative for postobstructive in the past -Discussed the case with Dr. Berger, no need for thoracocentesis at this point, continue to clinically monitor -Echocardiogram shows diffuse hypokinesis of the left ventricle, EF 25 to 30%, slight worsening of left left ventricular function, cardiology has been consu lted -Patient is DNR/DNI -Heparin for DVT prophylaxis on hold given anemia Plan for today: Hold diuresis, de-escalate antibiotic therapy, monitor for fevers, likely discharge the next 24 hours Status: Acute (2) CAD (coronary artery disease): #1 Left main is normal #2 LAD has luminal irregularities a patent previously placed stent #3 LCx is small nondominant vessel without significant stenosis #4 RCA has anterior takeoff difficult to engage AL-1 catheter was used it is a diffusely diseased vessel with multiple stents proximal RCA has 90% stenosis mid to distal RCA into PDA and PLB bifurcation has 60-70% tandem stenosis. It is the culprit vessel Successful PCI to proximal RCA and balloon angioplasty to mid to distal RCA Plan: -I assume patient remains on dual antiplatelet therapy due to severe CAD, will have cardiology weigh in -Continue aspirin, Plavix resumed, statin, Coreg -Cardiology has been consulted -Plan for stress test tomorrow Status: Acute (3) Rectal abscess: -Status post incision and drainage by ER -Dressing changes -Surgery has been consulted by ER physician -On broad-spectrum antibiotic therapy as above -Surgery on consult Status: Acute (4) Acute hyperkalemia: -Potassium 3.5 -History of acute on chronic hyperkalemia -Received insulin, D50, calcium gluconate -On Lasix therapy -Kayexalate on hold -telemetry monitoring Status: Acute (5) Acute on chronic renal failure: -History of CKD stage III -On last admission, month ago, had acute renal failure, creatinine as high as 6, requiring dialysis, dialysis catheter removed -Currently creatinine is 2.8 -I am suspecting that it is likely secondary to cardiorenal syndrome some hypovolemia -Carefully diuresis -Monitor creatinine, monitor urine output Status: Acute (6) COVID-19: -No significant COVID-19 symptoms Status: Acute (7) Chronic systolic CHF (congestive heart failure): -echo 07/2020 LV systolic function is severely reduced with EF of 30 to 35%. Regional wall motion abnormalities cannot be assessed because of limited visualization. Diastolic function is abnormal. Valvular structures are not completely assessed because of limited echocardiogram. Compared to prior study from 12/26/2019, no significant changes are noted. -Repeat echocardiogram shows diffuse hypokinesia, EF of 25% -Cardiology on consult, will do a cardiac stress test tomorrow morning Status: Acute (8) S/P bilateral BKA (below knee amputation): -Secondary to severe peripheral vascular disease, vasculopathy, diabetes Status: Chronic (9) Type 2 diabetes mellitus: -Continue sliding scale, Lantus 24 units daily Status: Chronic Qualifiers: Chronic kidney disease stage: stage 4 (severe) Diabetes mellitus complication detail: with chronic kidney disease Diabetes mellitus complication status: with kidney complications Diabetes mellitus [facility] 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 Qualified Code(s): E11.22 - Type 2 diabetes mellitus with diabetic chronic kidney disease; N18.4 - Chronic kidney disease, stage 4 (severe); Z79.4 - equipment [employer] (current) use of insulin (10) Peripheral vascular disease: Aspirin, statin, Plavix Status: Chronic (11) Hypertension: Status: Chronic (12) CKD stage 3 secondary to diabetes: Status: Chronic (13) COPD (chronic obstructive pulmonary disease): Status: Chronic (14) Acute on chronic anemia: -Hemoglobin 8.5 continue Plavix -Likely multifactorial from pneumonia, CKD, slow GI bleed -Monitor hemoglobin closely, monitor hemodynamics -Iron low at 11, ferritin 169, folate within normal limits, B12 within normal limits -Protonix 40 twice daily, carafate -Plavix resumed -Continue heparin -We will transfuse if hemoglobin drops below 7, Status: Acute (15) Acidosis: Resolved Status: Acute (16) Thrombocytosis: -Likely secondary to infection, chronic hypoxia -Peripheral smear unremarkable Status: Acute (17) AMS (altered mental status): -Delirium likely secondary to pneumonia -Some degree of underlying dementia -Head CT shows Chronic 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 -Carotid artery ultrasound shows no hemodynamically significant ICA stenosis -neurochecks, aspiration precautions -On aspirin, Plavix, statin Status: Acute Attestations Medical Necessity Statement*: Patient requires hospitalization for acute respiratory failure, pneumonia, COPD, some delirium, requiring stress testing tomorrow Coding Level of Care Code Acute [employer] for [employer] Diagnoses Acute respiratory failure with hypoxia J96.01 CAD (coronary artery disease) I25.10 Rectal abscess K61.1 Acute hyperkalemia E87.5 Acute on chronic renal failure N17.9; N18.9 COVID-19 U07.1 Chronic systolic CHF (congestive heart failure) I50.22 S/P bilateral BKA (below knee amputation) Z89.512; Z89.511 Type 2 diabetes mellitus E11.22; N18.4; Z79.4 Chronic kidney disease stage: stage 4 (severe) Diabetes mellitus complication detail: with chronic kidney disease Diabetes mellitus complication status: with kidney complications Diabetes mellitus [employer] insulin use: with [facility] use Peripheral vascular disease I73.9 Hypertension I10 CKD stage 3 secondary to diabetes E11.22; N18.3 COPD (chronic obstructive pulmonary disease) J44.9 Acute on chronic anemia D64.9 Acidosis E87.2 Thrombocytosis D47.3 AMS (altered mental status) R41.82
[2020-09-11 16:49] LABS: Glucose Point of Care 122 mg/dL (70-110)
[2020-09-11] MEDS: cefepime 2,000 MG in sodium chloride 0.9% (plus) 50 ML 100 MG IV (17:08)
--- NOTE | 2020-09-11 18:14 | PC.NURSE ---
Patient refused to eat supper. refuses any nutritional supplements.
[2020-09-11] MEDS: atorvastatin 40 mg Tablet 80 MG PO (19:15)
[2020-09-11 20:25] LABS: Glucose Point of Care 119 mg/dL (70-110)
[2020-09-12] VITALS (25 sets, daily range): BP systolic 97–129; BP diastolic 56–81; PULSE 100–113; RESP 15–18; TEMP 36.4–37.2; O2SAT 92–100
[2020-09-12] MEDS: ipratropium-albuterol 3 mL Neb INHALATION ×5 (03:43→21:05)
[2020-09-12 05:16] LABS: Basophils # 0.1 10^3/uL (0.0-0.1); Basophils % 0.3 %; Eosinophils # 0.1 10^3/uL (0.0-0.8); Eosinophils % 0.5 %; Hematocrit 33.2 % (42.0-52.0); Hemoglobin 10.1 g/dL (11.7-16.6); Lymphocytes % 14.4 %; Mean Corpuscular HGB Conc 30.4 g/dL (30.0-36.0); Mean Corpuscular Hemoglobin 27.2 pg (28.0-34.0); Mean Corpuscular Volume 89.2 fL (80-94); Mean Platelet Volume 9.1 fL (7.4-10.4); Monocytes # 1.5 10^3/uL (0.2-0.9); Monocytes % 7.1 %; Neutrophils # 15.51 10^3/uL (1.8-7.7); Neutrophils % 73.7 %; Nucleated Red Blood Cells % 0 %; Platelet Count 760 10^3/cmm (130-400); Red Blood Count 3.72 10^6/uL (4.1-5.3); Red Cell Distribution Width 15.5 % (12.1-15.1)
[2020-09-12 05:47] LABS: NT Pro B Type Natriuretic Pept 14604 pg/mL (0-125); Procalcitonin 0.08 ng/mL (0-0.5)
[2020-09-12 05:58] LABS: Alanine Aminotransferase 13 U/L (0-41); Albumin Level 3.1 g/dL (3.5-5.2); Alkaline Phosphatase 118 IU/L (40-130); Anion Gap 19.2 (5-19); Aspartate Amino Transferase 13 U/L (0-40); Blood Urea Nitrogen 58 mg/dL (8-23); C Reactive Protein 11.9 mg/L (0.0-4.9); Calcium 9.4 mg/dL (8.5-10.5); Carbon Dioxide 33 mmol/L (22-29); Chloride 104 mmol/L (98-107); Globulin 3.8 g/dL (1.3-4.6); Glomerular Filtration Rate 23.9 mL/min (90-130); Glucose 175 mg/dL (65-115); Magnesium 2.1 mg/dL (1.7-2.3); Osmolality Calculated 336 mOsm/kg (285-295); Phosphorus 3.9 mg/dL (2.5-4.5); Potassium 3.2 mmol/L (3.5-5.1); Sodium 153 mmol/L (136-145); Total Bilirubin 0.2 mg/dL (0.15-1.2); Total Protein 6.9 g/dL (6.6-8.7)
[2020-09-12 06:41] LABS: Glucose Point of Care 204 mg/dL (70-110)
--- NOTE | 2020-09-12 07:00 | XR_ITS ---
WS: [id number] PORTABLE CHEST HISTORY: sob COMPARISON: 09/11/2020 Mild interstitial thickening throughout the mid and lower RIGHT lung. Blunting of the RIGHT costophre kendra angle. LEFT lung is clear. Small RIGHT pleural effusion. Cardiac size: Normal. Mediastinum/Aorta: Heavily calcified bilateral hilar lymph nodes. No osseous abnormality seen. XR/XR chest 1V portable [id number] IMPRESSION: 1. Persistent areas of atelectasis and interstitial thickening throughout the RIGHT lung similar to the most recent study of 09/11/2020 without improvement. 2. Very small RIGHT pleural effusion.
[2020-09-12] MEDS: budesonide 0.5 mg/2 mL Neb INHALATION ×2 (07:25→21:05)
--- NOTE | 2020-09-12 07:36 | PC.NURSE ---
patient taken via wheelchair to stress test. no distress noted. off unit
--- NOTE | 2020-09-12 08:24 | SUR.PREOP ---
TEST CANCEL Notified by Nuclear medicine that patient is unable to complete the nuclear scans. Test cancelled as patient cannot complete. Floor nursing notified.
--- NOTE | 2020-09-12 08:31 | PC.NURSE ---
Dr. Mendoza notified patient returned to MED/Surg and unable to lay flat for stress test so test was unable to be completed.
--- NOTE | 2020-09-12 09:05 | PC.SOCIAL ---
IMM Updated Page 2 of IMM updated and given to patient. Initialed, dated, and timed and placed back in chart.
--- NOTE | 2020-09-12 09:35 | PC.NURSE ---
Dr. Mendoza verbalized to this nurse hold off on any medication and remain NPO until she speaks to cardiology for plan of care.
[2020-09-12 11:25] LABS: Glucose Point of Care 242 mg/dL (70-110)
--- NOTE | 2020-09-12 13:01 | PC.NURSE ---
This nurse assisted with feeding and encouraging meals for lunch since patient has had decreased appetite, patient tolerated lunch well and ate much more for this meal. coughing noted intermittently throughout eating.
--- NOTE | 2020-09-12 15:54 | PC.NURSE ---
Dr. Mendoza notified that patient condition has changed, patient is awake but oriented X1, difficult to get patient to conversate but follows commands appropriately, patient is diaphoretic saturated through patient gown, bilateral radial pulses are weak compared to AM assessment, pulse ox 93% on RA, BP 97/63, temperature 98.3, heart rate 110 without significant change noted on potline monitor, finger stick checked 183, new orders received to get stat EKG, place on 2L NC. changed gown repositioned patient and vitals monitored. Dr. Mendoza on here way to see patient.
--- NOTE | 2020-09-12 16:01 | ECG_ITS ---
[facility] Test Date: 2020-09-12 Pat Name: Tashi Cole Department: Room: 251 Gender: Male Proof Clerk: : [id number] Requested By: Edilma Mendoza Order Number: [id number] Rohini MD: Verónica Xiong M.D. Measurements Intervals [place] Rate: 111 P: 69 NE: 156 QRS: -14 QRSD: 132 T: 85 QT: 370 QTc: 503 Interpretive Statements SINUS TACHYCARDIA WITH OCCASIONAL VENTRICULAR PREMATURE COMPLEXES WITH OCCASIONAL SUPRAVENTRICULAR PREMATURE COMPLEXES INTRAVENTRICULAR CONDUCTION DELAY LEFT VENTRICULAR HYPERTROPHY AND ST-T CHANGE POSSIBLE ANTERIOR MYOCARDIAL INFARCTION, OF INDETERMINATE AGE INFERIOR MYOCARDIAL INFARCTION, OF INDETERMINATE AGE Compared to ECG 09/07/2020 23:17:43 Ventricular premature complex(es) now present Intraventricular conduction delay now present Left ventricular hypertrophy now present ST (T wave) deviation now present Sinus rhythm no longer present Myocardial infarct finding still present Electronically Signed On 09-12-2020 20:18:06 MODEL MAKER by Verónica Xiong M.D. [id number]
[2020-09-12 16:02] LABS: Glucose Point of Care 183 mg/dL (70-110)
--- NOTE | 2020-09-12 17:03 | PM.PN ---
Subjective Subjective: Interval history: Patient has been confused on and off. He is unable to tell me date, month, president or where he is. Runs of NSVT on telemetry. No chest pain, SOB. Unable to do stress test as could not lay still for the procedure. Unfortunately, seems like none of his am meds were given as he was NPO which should not have been the case. Medications: Reviewed: Yes Medication Review Details: Current Medications Acetaminophen (Acetaminophen 325 Mg Tablet) 650 mg PO Q4H PRN PRN Reason: Pain Albuterol Sulfate (Albuterol 2.5 Mg/0.5 Ml Neb) 2.5 mg INHALATION Q4H.RESPIRATORY PRN PRN Reason: Shortness Of Breath Albuterol/Ipratropium (Ipratropium-Albuterol 3 Ml Neb) 3 ml INHALATION Q4H.RESPIRATORY [facility] Last Admin: 09/12/20 15:07 Dose: 3 ml Documented by: Aminophylline (Aminophylline 25 Mg/Ml Sdv 10 Ml) 25 mg IVP Q2M PRN PRN Reason: see dose instructions Stop: 09/13/20 06:35 Aspirin (Aspirin 81 Mg Ec Tablet) 81 mg PO DAILY@08 [facility] Last Admin: 09/12/20 10:26 Dose: Not Given Documented by: Atorvastatin Calcium (Atorvastatin 40 Mg Tablet) 80 mg PO DAILY@20 [facility] Last Admin: 09/11/20 19:15 Dose: 80 mg Documented by: Azithromycin (Azithromycin 250 Mg Tablet) 250 mg PO DAILY [facility]; Protocol Last Admin: 09/12/20 10:28 Dose: Not Given Documented by: Bisacodyl (Bisacodyl 10 Mg Supp) 10 mg DC DAILY PRN PRN Reason: CONSTIPATED Budesonide (Budesonide 0.5 Mg/2 Ml Neb) 0.5 mg INHALATION BID.RESPIRATORY [facility] Last Admin: 09/12/20 07:25 Dose: 0.5 mg Documented by: Bupropion HCl (Bupropion Sr (12 Hr) 150 Mg Tablet) 150 mg PO Q12H [facility] Last Admin: 09/12/20 10:26 Dose: Not Given Documented by: Carvedilol (Carvedilol 6.25 Mg Tablet) 6.25 mg PO BID@08,20 [facility] Citalopram Hydrobromide (Citalopram 20 Mg Tablet) 20 mg PO DAILY@08 [facility] Last Admin: 09/12/20 10:27 Dose: Not Given Documented by: Clopidogrel Bisulfate (Clopidogrel 75 Mg Tablet) 75 mg PO DAILY [facility] Last Admin: 09/12/20 10:28 Dose: Not Given Documented by: Dextrose (Dextrose 50% Syringe 50 Ml) 25 ml IVP ONCE PRN; Protocol PRN Reason: hypoglycemia protocol Dextrose (Dextrose 50% Syringe 50 Ml) 50 ml IVP PRN PRN; Protocol PRN Reason: hypoglycemia protocol Ferrous Sulfate (Ferrous Sulfate Ec 325 Mg Tablet) 325 mg PO BIDWM [facility] Last Admin: 09/12/20 17:15 Dose: 325 mg Documented by: Glucagon (Glucagon 1 Mg/Ml Inj 1 Ml) 1 mg IM ONCE PRN; Protocol PRN Reason: Adult Acute Hypoglycemia Prot. Heparin Sodium (Beef Lung) (Heparin 5,000 Unit/Ml Inj 1 Ml) 5,000 unit SUBCUT Q12H [facility] Last Admin: 09/12/20 10:27 Dose: Not Given Documented by: Dextrose (D5w) 500 mls @ 100 mls/hr IV ONCE PRN; Protocol PRN Reason: Adult Acute Hypoglycemia Prot Cefepime HCl 2,000 mg/ Sodium (Chloride) 50 mls @ 100 mls/hr IV Q24H [facility]; Protocol Last Admin: 09/12/20 17:15 Dose: 100 mls/hr Documented by: Potassium Chloride/Dextrose (Dextrose 5% + Kcl 20 Meq) 20 meq in 1,000 mls @ 75 mls/hr IV .[id number] [facility] Stop: 09/12/20 23:29 Insulin Aspart (Insulin Aspart 100 Unit/1 Ml) 0 unit SUBCUT WM&BEDTIME [facility]; Protocol Last Admin: 09/12/20 11:11 Dose: 10 unit Documented by: Insulin Glargine (Insulin Glargine 100 Units/1 Ml) 24 unit SUBCUT DAILY@0800 [facility] Last Admin: 09/12/20 10:27 Dose: Not Given Documented by: Loratadine (Loratadine 10 Mg Tablet) 10 mg PO DAILY@08 [facility] Last Admin: 09/12/20 10:28 Dose: Not Given Documented by: Magnesium Hydroxide (Magnesium Hydroxide 30 Ml Udc) 30 ml PO DAILY PRN PRN Reason: CONSTIPATON Magnesium Lactate (Magnesium Lactate 84 Mg Tablet) 84 mg PO BID [facility] Nitroglycerin (Nitroglycerin 0.4 Mg Sublingual Tablet) 0.4 mg SUBLINGUAL Q5M PRN PRN Reason: Chest Pain Nitroglycerin (Nitroglycerin 0.4 Mg Sublingual Tablet) 0.4 mg SUBLINGUAL Q5M PRN PRN Reason: CHEST PAIN Stop: 09/13/20 06:35 Olanzapine (Olanzapine 10 Mg Vial) 5 mg IM Q6H PRN PRN Reason: SEVERE AGITATION Ondansetron HCl (Ondansetron 4 Mg Tablet) 4 mg PO Q4H PRN PRN Reason: Nausea Ondansetron HCl (Ondansetron 2 Mg/Ml Sdv 2 Ml) 4 mg IVP Q2M PRN PRN Reason: NAUSEA Pantoprazole Sodium (Pantoprazole Dr 40 Mg Tablet) 40 mg PO BID@,18 [facility] Last Admin: 09/12/20 17:15 Dose: 40 mg Documented by: Polyethylene Glycol (Polyethylene Glycol 3350 Pkt 17 Gm) 17 gm PO DAILY@08 [facility] Last Admin: 09/12/20 06:10 Dose: Not Given Documented by: Potassium Chloride (Potassium Chloride Er 20 Meq Tablet) 40 meq PO DAILY [facility] Prednisone (Prednisone 20 Mg Tablet) 40 mg PO DAILY [facility] Last Admin: 09/12/20 10:29 Dose: Not Given Documented by: Regadenoson (Regadenoson 0.4 Mg/5 Ml Syringe) 0.4 mg IVP ONCE PRN PRN Reason: Lexiscan Stress Test Sodium Polystyrene Sulfonate (Sodium Polystyrene Sulfonate 15 Gm/60 Ml Btl) 15 gm PO Q6H [facility] Last Admin: 09/12/20 00:25 Dose: Not Given Documented by: Sucralfate (Sucralfate 1 Gm Tablet) 1 gm PO BIDAC [facility] Last Admin: 09/12/20 17:15 Dose: 1 gm Documented by: Tamsulosin HCl (Tamsulosin 0.4 Mg Capsule) 0.4 mg PO DAILY@08 [facility] Last Admin: 09/12/20 10:28 Dose: Not Given Documented by: Vitals/I&O/Wt Last Vital Signs Temp 98.3 F 09/12/20 15:42 Pulse 110 H 09/12/20 15:42 Resp 18 09/12/20 15:42 BP 97/63 09/12/20 15:42 Pulse Ox 93 09/12/20 16:20 09/12/20 09/12/20 09/12/20 06:59 14:59 22:59 Intake Total 480 / 1320 240 / 240 Output Total 500 / 1900 150 / 150 Balance -20 / -580 90 / 90 Physical Exam Narrative: EXAM NARRATIVE: EXAM NARRATIVE: Const COMMON NORMALS: no acute distress, average body habitus, alert and well nourished GENERAL APPEARANCE: cooperative, comfortable, well kempt and well developed ORIENTATION/CONSCIOUSNESS: Yes oriented to person (Self) HE[place]Z COMMON NORMALS: normocephalic, atraumatic, hearing grossly normal bilaterally, external ears normal, Normal external nose present HEAD & SCALP: normocephalic and atraumatic FACE & SINUS: face symmetric NOSE: Normal external nose present EXTERNAL EAR: Yes external ears normal MOUTH: Normal oral and palatal mucosa present Eye COMMON NORMALS: Equal, round and reactive pupils present, EOMs intact bilaterally and conjunctivae normal ALIGNMENT: Yes alignment normal CONJUNCTIVA: Yes conjunctivae normal SCLERA: sclerae normal PUPIL: Yes Equal, round and reactive pupils present Neck/C-Spine COMMON NORMALS: no lymphadenopathy, supple, no JVD and Thyroid normal; negative for No carotid bruits GENERAL: Yes trachea midline THYROID: Thyroid normal Lymph LYMPHATIC: No no lymphadenopathy noted Chest COMMONS NORMALS: normal inspection of the chest CHEST: Yes Symmetrical chest wall rise and No tenderness Resp COMMON NORMALS: normal respiratory effort, No use of accessory muscles, clear to auscultation bilaterally and percussion normal EFFORT & INSPECTION: Yes able to speak in complete sentences, No tachypneic and No audible wheezes AUSCULTATION: clear to auscultation bilaterally, no crackles, no rales, no rhonchi and no wheezes PERCUSSION: percussion normal Cardio COMMON NORMALS: no JVD, regular rate, regular rhythm, S1 normal heart sound present, S2 normal heart sound present and Peripheral pulses 2+ throughout; negative for No gallops present (Cardio) and negative for No clicks present (Cardio) JUGULAR VENOUS DISTENTION: no JVD PALPATION: normal PMI, no heave, no palpable S3, no palpable S4 and no thrill RATE: regular rate, tachycardia+ RHYTHM: regular rhythm HEART SOUNDS: S1 normal heart sound present, S2 normal heart sound present, no click, no gallops and no murmurs BRUITS: no abdominal aortic bruits and no carotid bruits PERIPHERAL PULSES: Peripheral pulses 2+ throughout GI COMMON NORMALS: Normal to inspection, nondistended, normoactive bowel sounds present, Soft to palpation, non-tender PALPATION: Yes Soft to palpation and Yes PERCUSSION: tympanic to percussion RECTAL EXAM: Yes deferred Back/Pelvis Extremity NARRATIVE EXTREMITY EXAM: Bilateral below-knee amputation, no edema in stump Neuro COMMON NORMALS: no focal motor deficits SENSORIUM/ORIENTATION: Yes alert and Yes oriented to person (Self) CRANIAL NERVES: Yes CN normal except as noted Psych COMMON NORMALS: Normal thought process present APPEARANCE: Yes well kempt MOOD & AFFECT: Yes euthymic mood THOUGHT PROCESS: Normal thought process present THOUGHT CONTENT: Yes Normal thought content present ATTENTION/CONCENTRATION: Yes attention grossly intact MEMORY/COGNITION: Yes memory grossly intact INSIGHT: Good insight present (Psych) JUDGEMENT: Good judgement present (Psych) Urinary Catheter Management^: Mejia: Cath Placed During This Visit: yes Reason for Continuing Indwelling Catheter: Assist Healing of Perineal & Sacral Wounds- Incontinent Patients Urinary Catheter Date of Insertion: 09/08/20 Urinary Catheter Time of Insertion: 09:30 Data : 09/12/20 04:41 09/12/20 04:41 Micro: Microbiology 09/10/20 08:57 Urine Culture - Final Urine Catheterized 09/10/20 09:23 Blood Culture - Preliminary Blood NEGATIVE TO DATE 09/10/20 09:18 Blood Culture - Preliminary Blood NEGATIVE TO DATE 09/07/20 22:00 Wound Culture - Final Groin Escherichia coli Proteus mirabilis A&P Assessment and plan (1) Congestive heart failure: ACC/AHA stage C, NYHA class III , 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 -renal function worsened and he is tachycardic. Hold lasix. I will bolus IV fluids as his PO intake is very poor. -On Coreg 3.125 twice daily. -May try to add low-dose Isordil and hydralazine if blood pressure allows. DELVIS/ARB/ARNI may not be an option with his CKD. -Urine output 1900 ml with negative balance of 530 ml; LOS negative -4.7L -BUN 51-->56--61-->58 and creatinine 2.6-->2.8-->2.9-->2.7 with CO2 of 26->29-->33. Baseline creatinine 1.8-2. Patient is DNR and DNI and explicitly states that he does not want ICD. I think in his situation medical management would be the way to go. -No further cardiac testing at this point. -I had a long discussion with patient's daughter Brittney. She was updated about patient's current situation. She is agreeable with the plan of no testing at this point and honoring patients wishes of DNR/DNI. Status: Acute Qualifiers: Heart failure chronicity: acute on chronic Heart failure type: combined systolic and diastolic Qualified Code(s): I50.43 - Acute on chronic combined systolic (congestive) and diastolic (congestive) heart failure (2) Coronary artery disease: Status: Chronic Qualifiers: Associated angina: without angina Coronary Disease-Associated Artery/Lesion type: [place] artery [place] vs. 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 Repeat CT head has been ordered. I think there is a component of underlying dementia. As per daughter he has been confused intermittently for some time now. Hypernatremia: Nonsustained ventricular tachycardia: Continue Coreg, keep potassium more than 4 and magnesium more than 2. Tachycardia: Continue to monitor closely on telemetry. Elevated troponin in setting of decompensated congestive heart failure and chronic kidney disease Normocytic anemia (iron deficiency and anemia of chronic disease) Thrombocytosis Hypokalemia: replaced Attestations Medical Necessity Statement*: Needs hospital stay for decompensated congestive heart failure. Time Spent in Patient Care: Greater than 35 minutes (>than 50% of time spent in counselling and/or direct pt care on unit). 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 transplanted heart: [place] heart Type 2 diabetes mellitus E11.22; N18.4; Z79.4 Chronic kidney disease stage: stage 4 (severe) Diabetes mellitus complication detail: with chronic kidney disease Diabetes mellitus complication status: with kidney complications Diabetes mellitus [facility] insulin use: with [facility] use Nicotine dependence, cigarettes, with other nicotine-induced disorders F17.218 Perineal abscess L02.215 CKD (chronic kidney disease) stage 4, GFR 15-29 ml/min N18.4
[2020-09-12] MEDS: pantoprazole DR 40 mg Tablet PO (17:15)
[2020-09-12] MEDS: sucralfate 1 gm Tablet PO (17:15)
[2020-09-12] MEDS: ferrous sulfate EC 325 mg Tablet PO (17:15)
[2020-09-12] MEDS: cefepime 2,000 MG in sodium chloride 0.9% (plus) 50 ML 100 MG IV (17:15)
--- NOTE | 2020-09-12 17:18 | P.PN_ITS ---
Subjective Subjective: Interval history: This afternoon is noted to be more withdrawn, less conversant than previously. He is currently unable to tell me his date of age or location. Per RN at bedside this appears to be a change in his mentation from previous known baseline Medications: Reviewed: Yes Medication Review Details: Current Medications Acetaminophen (Acetaminophen 325 Mg Tablet) 650 mg PO Q4H PRN PRN Reason: Pain Albuterol Sulfate (Albuterol 2.5 Mg/0.5 Ml Neb) 2.5 mg INHALATION Q4H.RESPIRATORY PRN PRN Reason: Shortness Of Breath Albuterol/Ipratropium (Ipratropium-Albuterol 3 Ml Neb) 3 ml INHALATION Q4H.RESPIRATORY [facility] Last Admin: 09/11/20 07:36 Dose: 3 ml Documented by: Aspirin (Aspirin 81 Mg Ec Tablet) 81 mg PO DAILY@08 [facility] Last Admin: 09/10/20 07:25 Dose: 81 mg Documented by: Atorvastatin Calcium (Atorvastatin 40 Mg Tablet) 80 mg PO DAILY@20 [facility] Last Admin: 09/10/20 21:47 Dose: 80 mg Documented by: Azithromycin (Azithromycin 250 Mg Tablet) 250 mg PO DAILY [facility]; Protocol Bisacodyl (Bisacodyl 10 Mg Supp) 10 mg [place] DAILY PRN PRN Reason: CONSTIPATED Budesonide (Budesonide 0.5 Mg/2 Ml Neb) 0.5 mg INHALATION BID.RESPIRATORY [facility] Last Admin: 09/11/20 07:36 Dose: 0.5 mg Documented by: Bupropion HCl (Bupropion Sr (12 Hr) 150 Mg Tablet) 150 mg PO Q12H [facility] Last Admin: 09/10/20 21:47 Dose: 150 mg Documented by: Carvedilol (Carvedilol 3.125 Mg Tablet) 3.125 mg PO BID@08,20 [facility] Last Admin: 09/10/20 21:47 Dose: 3.125 mg Documented by: Citalopram Hydrobromide (Citalopram 20 Mg Tablet) 20 mg PO DAILY@08 [facility] Last Admin: 09/10/20 07:25 Dose: 20 mg Documented by: Clopidogrel Bisulfate (Clopidogrel 75 Mg Tablet) 75 mg PO DAILY [facility] Last Admin: 09/10/20 08:11 Dose: 75 mg Documented by: Dextrose (Dextrose 50% Syringe 50 Ml) 25 ml IVP ONCE PRN; Protocol PRN Reason: hypoglycemia protocol Dextrose (Dextrose 50% Syringe 50 Ml) 50 ml IVP PRN PRN; Protocol PRN Reason: hypoglycemia protocol Ferrous Sulfate (Ferrous Sulfate Ec 325 Mg Tablet) 325 mg PO BIDWM [facility] Last Admin: 09/10/20 17:26 Dose: 325 mg Documented by: Furosemide (Furosemide 10 Mg/Ml Sdv 4ml) 40 mg IVP Q12H [facility] Last Admin: 09/10/20 20:16 Dose: 40 mg Documented by: Glucagon (Glucagon 1 Mg/Ml Inj 1 Ml) 1 mg IM ONCE PRN; Protocol PRN Reason: Adult Acute Hypoglycemia Prot. Heparin Sodium (Beef Lung) (Heparin 5,000 Unit/Ml Inj 1 Ml) 5,000 unit SUBCUT Q12H [facility] Last Admin: 09/10/20 21:47 Dose: 5,000 unit Documented by: Dextrose (D5w) 500 mls @ 100 mls/hr IV ONCE PRN; Protocol PRN Reason: Adult Acute Hypoglycemia Prot Cefepime HCl 2,000 mg/ Sodium (Chloride) 50 mls @ 100 mls/hr IV Q24H [facility]; Protocol Insulin Aspart (Insulin Aspart 100 Unit/1 Ml) 0 unit SUBCUT WM&BEDTIME [facility]; Protocol Last Admin: 09/10/20 21:18 Dose: Not Given Documented by: Insulin Glargine (Insulin Glargine 100 Units/1 Ml) 24 unit SUBCUT DAILY@0800 [facility] Last Admin: 09/10/20 08:11 Dose: 24 unit Documented by: Loratadine (Loratadine 10 Mg Tablet) 10 mg PO DAILY@08 [facility] Last Admin: 09/10/20 07:25 Dose: 10 mg Documented by: Magnesium Hydroxide (Magnesium Hydroxide 30 Ml Udc) 30 ml PO DAILY PRN PRN Reason: CONSTIPATON Magnesium Lactate (Magnesium Lactate 84 Mg Tablet) 84 mg PO DAILY@08 [facility] Last Admin: 09/10/20 07:25 Dose: 84 mg Documented by: Nitroglycerin (Nitroglycerin 0.4 Mg Sublingual Tablet) 0.4 mg SUBLINGUAL Q5M PRN PRN Reason: Chest Pain Olanzapine (Olanzapine 10 Mg Vial) 5 mg IM Q6H PRN PRN Reason: SEVERE AGITATION Ondansetron HCl (Ondansetron 4 Mg Tablet) 4 mg PO Q4H PRN PRN Reason: Nausea Pantoprazole Sodium (Pantoprazole Dr 40 Mg Tablet) 40 mg PO BID@06,18 [facility] Last Admin: 09/11/20 06:26 Dose: 40 mg Documented by: Polyethylene Glycol (Polyethylene Glycol 3350 Pkt 17 Gm) 17 gm PO DAILY@08 [facility] Last Admin: 09/10/20 08:12 Dose: Not Given Documented by: Potassium Chloride (Potassium Chloride Er 20 Meq Tablet) 40 meq PO DAILY [facility] Last Admin: 09/10/20 08:11 Dose: 40 meq Documented by: Prednisone (Prednisone 20 Mg Tablet) 40 mg PO DAILY [facility] Sodium Polystyrene Sulfonate (Sodium Polystyrene Sulfonate 15 Gm/60 Ml Btl) 15 gm PO Q6H [facility] Last Admin: 09/11/20 02:05 Dose: Not Given Documented by: Sucralfate (Sucralfate 1 Gm Tablet) 1 gm PO BIDAC [facility] Last Admin: 09/10/20 17:21 Dose: 1 gm Documented by: Tamsulosin HCl (Tamsulosin 0.4 Mg Capsule) 0.4 mg PO DAILY@08 [facility] Last Admin: 09/10/20 07:25 Dose: 0.4 mg Documented by: Vitals/I&O/Wt Last Vital Signs Temp 98.3 F 09/12/20 15:42 Pulse 107 H 09/12/20 16:23 Resp 16 09/12/20 16:23 BP 113/73 09/12/20 16:23 Pulse Ox 97 09/12/20 16:23 09/12/20 09/12/20 09/12/20 06:59 14:59 22:59 Intake Total 480 / 1370 240 / 240 Output Total 500 / 1900 150 / 150 Balance -20 / -530 90 / 90 Physical Exam Narrative: EXAM NARRATIVE: GEN: Awake, alert, disoriented RS: CTA B/L except crackles over RUL Abd: Soft, nt/nd , bs+ CONSULAR OFFICER: no focal neuro deficits Ext B/L Le post amputation Urinary Catheter Management^: Mejia: Cath Placed During This Visit: yes Reason for Continuing Indwelling Catheter: Assist Healing of Perineal & Sacral Wounds- Incontinent Patients Urinary Catheter Date of Insertion: 09/08/20 Urinary Catheter Time of Insertion: 09:30 Data : 09/12/20 04:41 09/12/20 04:41 Micro: Microbiology 09/10/20 08:57 Urine Culture - Final Urine Catheterized 09/10/20 09:23 Blood Culture - Preliminary Blood NEGATIVE TO DATE 09/10/20 09:18 Blood Culture - Preliminary Blood NEGATIVE TO DATE 09/07/20 22:00 Wound Culture - Final Groin Escherichia coli Proteus mirabilis A&P Assessment and plan (1) Acute respiratory failure with hypoxia: -Secondary to healthcare associated pneumonia, likely aspiration pneumonia/pneumonitis, CHF exacerbation, COPD -Recent hospital admission for pneumonia, chest x-ray shows bilateral pleural effusions,, pulmonary edema, pneumonitis, right middle lobe and right lower lobe pneumonia -Patient has had multiple swallow eval's in the past, with evidence of aspiration -BNP 78077 -Troponin 75, 6-hour 78.28, delta 3.28 -CT chest shows: 1. Diffuse airspace infiltrate throughout the right lower lobe, consistent with pneumonia. This has worsened when compared to 07/26/2020. 2. Virtual complete atelectasis of the right middle lobe. This is new when compared to the previous study. 3. Mild prominence of the pulmonary interstitium bilaterally, suggesting interstitial pulmonary edema. 4. Bilateral pleural effusions, right larger than left. This is new when compared to the previous study. 5. Changes of old granulomatous disease are identified. 6. Cardiomegaly is present. No pericardial effusion. -ABG this morning shows pH 7.47, PCO2 42.3, PO2 75.3, bicarb 31 -Echocardiogram shows diffuse hypokinesis, left ventricular ejection fraction 25 to 30% -Chest x-ray shows resolving airspace and interstitial infiltrative changes right lower lung, resolving right pleural effusion Plan: -Sputum cultures, blood cultures, urine bacterial antigens also far have been negative -Telemetry monitoring -Currently on room air, BiPAP during the day, BiPAP schedule during the night -Broad-spectrum antibiotic therapy azithromycin and cefepime -persisting leukoctosis , likely from steroids -De-escalate to prednisone 40 mg daily, DuoNebs every 4 hours -Lasix 40 mg IV every 12 hours on hold, as creatinine is 2.9, urine output 2400, BNP 00293 -Monitor creatinine, monitor urine output closely -Has had a bronchoscopy for recurrent pneumonias in right middle lobe, which has been unremarkable, has chronic right middle lobe atelectasis secondary to adenopathy, negative for postobstructive in the past -Discussed the case with Dr. Berger, no need for thoracocentesis at this point, continue to clinically monitor -Echocardiogram shows diffuse hypokinesis of the left ventricle, EF 25 to 30%, slight worsening of left left ventricular function, cardiology has been consulted -Patient is DNR/DNI -Heparin for DVT prophylaxis on hold given anemia new chanes in metal status, check CT head Status: Acute (2) CAD (coronary artery disease): #1 Left main is normal #2 LAD has luminal irregularities a patent previously placed stent #3 LCx is small nondominant vessel without significant stenosis #4 RCA has anterior takeoff difficult to engage AL-1 catheter was used it is a diffusely diseased vessel with multiple stents proximal RCA has 90% stenosis mid to distal RCA into PDA and PLB bifurcation has 60-70% tandem stenosis. It is the culprit vessel Successful PCI to proximal RCA and balloon angioplasty to mid to distal RCA Plan: -I assume patient remains on dual antiplatelet therapy due to severe CAD, will have cardiology weigh in -Continue aspirin, Plavix resumed, statin, Coreg -Cardiology has been consulted -Plan for stress test tomorrow Status: Acute (3) Rectal abscess: -Status post incision and drainage by ER -Dressing changes -Surgery has been consulted by ER physician -On broad-spectrum antibiotic therapy as above -Surgery on consult Status: Acute (4) Acute hyperkalemia: -Potassium 3.5 -History of acute on chronic hyperkalemia -Received insulin, D50, calcium gluconate -On Lasix therapy -Kayexalate on hold -telemetry monitoring Status: Acute (5) Acute on chronic renal failure: -History of CKD stage III -On last admission, month ago, had acute renal failure, creatinine as high as 6, requiring dialysis, dialysis catheter removed -Currently creatinine is 2.8 -I am suspecting that it is likely secondary to cardiorenal syndrome some hypovolemia -Carefully diuresis -Monitor creatinine, monitor urine output Status: Acute (6) COVID-19: -No significant COVID-19 symptoms Status: Acute (7) Chronic systolic CHF (congestive heart failure): -echo 07/2020 LV systolic function is severely reduced with EF of 30 to 35%. Regional wall motion abnormalities cannot be assessed because of limited visualization. Diastolic function is abnormal. Valvular structures are not completely assessed because of limited echocardiogram. Compared to prior study from 12/26/2019, no significant changes are noted. -Repeat echocardiogram shows diffuse hypokinesia, EF of 25% -Cardiology on consult, will do a cardiac stress test tomorrow morning Status: Acute (8) S/P bilateral BKA (below knee amputation): -Secondary to severe peripheral vascular disease, vasculopathy, diabetes Status: Chronic (9) Type 2 diabetes mellitus: -Continue sliding scale, Lantus 24 units daily Status: Chronic Qualifiers: Chronic kidney disease stage: stage 4 (severe) Diabetes mellitus c omplication detail: with chronic kidney disease Diabetes mellitus complication status: with kidney complications Diabetes mellitus terminal manager insulin use: with fdc use Qualified Code(s): E11.22 - Type 2 diabetes mellitus with diabetic chronic kidney disease; N18.4 - Chronic kidney disease, stage 4 (sever e); Z79.4 - senior living (current) use of insulin (10) Peripheral vascular disease: Aspirin, statin, Plavix Status: Chronic (11) Hypertension: Status: Chronic (12) CKD stage 3 secondary to diabetes: Status: Chronic (13) COPD (chronic obstructive pulmonary disease): Status: Chronic (14) Acute on chronic anemia: -Hemoglobin 8.5 continue Plavix -Likely multifactorial from pneumonia, CKD, slow GI bleed -Monitor hemoglobin closely, monitor hemodynamics -Iron low at 11, ferritin 169, folate within normal limits, B12 within normal limits -Protonix 40 twice daily, carafate -Plavix resumed -Continue heparin -We will transfuse if hemoglobin drops below 7, Status: Acute (15) Acidosis: Resolved Status: Acute (16) Thrombocytosis: -Likely secondary to infection, chronic hypoxia -Peripheral smear unremarkable Status: Acute (17) AMS (altered mental status): -Delirium likely secondary to pneumonia -Some degree of underlying dementia -Head CT shows Chronic 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 -Carotid artery ultrasound shows no hemodynamically significant ICA stenosis -neurochecks, aspiration precautions -On aspirin, Plavix, statin new changes tpday, nw disoriented, not participatng in conversation. check CT head Status: Acute Attestations Medical Necessity Statement*: Ct head given new mental statsu changes Coding Level of Care Code Acute Insurance Advisor for Pepe Mcfarland Diagnoses Acute respiratory failure with hypoxia J96.01 CAD (coronary artery disease) I25.10 Rectal abscess K61.1 Acute hyperkalemia E87.5 Acute on chronic renal failure N17.9; N18.9 COVID-19 U07.1 Chronic systolic CHF (congestive heart failure) I50.22 S/P bilateral BKA (below knee amputation) Z89.512; Z89.511 Type 2 diabetes mellitus E11.22; N18.4; Z79.4 Chronic kidney disease stage: stage 4 (severe) Diabetes mellitus complication detail: with chronic kidney disease Diabetes mellitus complication status: with kidney complications Diabetes mellitus fdc insulin use: with fdc use Peripheral vascular disease I73.9 Hypertension I10 CKD stage 3 secondary to diabetes E11.22; N18.3 COPD (chronic obstructive pulmonary disease) J44.9 Acute on chronic anemia D64.9 Acidosis E87.2 Thrombocytosis D47.3 AMS (altered mental status) R41.82
[2020-09-12 17:19] LABS: Glucose Point of Care 223 mg/dL (70-110)
--- NOTE | 2020-09-12 17:23 | CTR_ITS ---
PROCEDURE INFORMATION: Exam: CT Head Without Contrast Exam date and time: 09/12/2020 5:25 PM Age: 64 years old Clinical indication: Altered mental status/memory loss; Additional info: New hanges in mentation TECHNIQUE: Imaging protocol: Computed tomography of the head without contrast. Total images: 210 Radiation optimization: All CT scans at this facility use at least one of these dose optimization techniques: automated exposure control; mA and/or kV adjustment per patient size (includes targeted exams where dose is matched to clinical indication); or iterative reconstruction. COMPARISON: CT head wo con* [id number] 09/10/2020 8:26 AM RADIATION DOSE METRICS: Total DLP (mGy-cm): 838.97 FINDINGS: Brain: Stable old right frontal lobe infarction.No evidence of active or acute intracranial pathologic process, hemorrhage, or trauma. Cerebral and cerebellar atrophy with ventricular dilatation greater than that anticipated for patient's chronological age. Old left cerebellar infarction. Advanced small vessel ischemic disease with senile periventricular leukomalacia. No mass effect. No midline shift. No generalized cerebral edema. Cerebral ventricles: Ventriculomegaly greater than the cerebral atrophy present with associated thinning of the corpus callosum. Consideration might be given to normal pressure hydrocephalus. Bones/joints: Unremarkable. No acute fracture. Paranasal sinuses: Mild chronic ethmoid sinusitis. No visible active paranasal sinus disease. Mastoid air cells: Visualized mastoid air cells are well aerated. Soft tissues: Unremarkable. CT/CT head wo con* [id number] IMPRESSION: No evidence of active or acute intracranial pathologic process, hemorrhage, or trauma. Radiation Dose CTDIVOL = (mGy): DLP = 838.97 (mGy-cm)
[2020-09-12] MEDS: dextrose 5% + KCl 20 mEq 20 MEQ/1,000 ML BAG 75 MEQ IV (17:46)
[2020-09-12] MEDS: potassium chloride ER 20 mEq Tablet 40 MEQ PO (17:46)
[2020-09-12] MEDS: magnesium lactate 84 mg Tablet PO (17:49)
[2020-09-12] MEDS: heparin 5,000 unit/mL INJ 1 mL 5000 UNIT SUBCUT (19:39)
[2020-09-12] MEDS: buPROPion SR (12 HR) 150 mg Tablet PO (19:39)
[2020-09-12] MEDS: atorvastatin 40 mg Tablet 80 MG PO (19:39)
[2020-09-12] MEDS: carvedilol 3.125 mg Tablet PO (19:39)
[2020-09-12 20:20] LABS: Glucose Point of Care 195 mg/dL (70-110)
[2020-09-13] VITALS (22 sets, daily range): BP systolic 94–127; BP diastolic 53–71; PULSE 57–104; RESP 12–20; TEMP 36.4–37.1; O2SAT 94–99
[2020-09-13] MEDS: ipratropium-albuterol 3 mL Neb INHALATION ×6 (00:27→19:38)
[2020-09-13] MEDS: sucralfate 1 gm Tablet PO ×2 (06:01→17:32)
[2020-09-13] MEDS: pantoprazole DR 40 mg Tablet PO ×2 (06:01→17:32)
[2020-09-13 06:45] LABS: Glucose Point of Care 167 mg/dL (70-110)
[2020-09-13] MEDS: budesonide 0.5 mg/2 mL Neb INHALATION ×2 (07:48→19:39)
[2020-09-13 08:24] LABS: Basophils # 0.1 10^3/uL (0.0-0.1); Basophils % 0.4 %; Eosinophils # 0.5 10^3/uL (0.0-0.8); Eosinophils % 2.1 %; Hematocrit 35.7 % (42.0-52.0); Hemoglobin 10.7 g/dL (11.7-16.6); Lymphocytes # 2.5 10^3/uL (0.8-4.8); Lymphocytes % 11.6 %; Mean Corpuscular Hemoglobin 27.5 pg (28.0-34.0); Mean Corpuscular Volume 91.8 fL (80-94); Mean Platelet Volume 9.3 fL (7.4-10.4); Monocytes # 1.3 10^3/uL (0.2-0.9); Monocytes % 5.9 %; Nucleated Red Blood Cells % 0 %; Platelet Count 649 10^3/cmm (130-400); Red Blood Count 3.89 10^6/uL (4.1-5.3); Red Cell Distribution Width 15.7 % (12.1-15.1); White Blood Count 21.4 10^3/uL (4.0-10.0)
[2020-09-13] MEDS: predniSONE 20 mg Tablet 40 MG PO (08:31)
[2020-09-13] MEDS: potassium chloride ER 20 mEq Tablet 40 MEQ PO (08:31)
[2020-09-13] MEDS: polyethylene glycol 3350 Pkt 17 gm PO (08:31)
[2020-09-13] MEDS: carvedilol 3.125 mg Tablet PO ×2 (08:31→20:18)
[2020-09-13] MEDS: clopidogrel 75 mg Tablet PO (08:32)
[2020-09-13] MEDS: heparin 5,000 unit/mL INJ 1 mL 5000 UNIT SUBCUT ×2 (08:32→20:16)
[2020-09-13] MEDS: tamsulosin 0.4 mg Capsule PO (08:32)
[2020-09-13] MEDS: ferrous sulfate EC 325 mg Tablet PO ×2 (08:32→17:32)
[2020-09-13] MEDS: buPROPion SR (12 HR) 150 mg Tablet PO ×2 (08:32→20:15)
[2020-09-13] MEDS: azithromycin 250 mg Tablet PO (08:32)
[2020-09-13] MEDS: loratadine 10 mg Tablet PO (08:32)
[2020-09-13] MEDS: citalopram 20 mg Tablet PO (08:32)
[2020-09-13] MEDS: aspirin 81 mg EC Tablet PO (08:32)
[2020-09-13] MEDS: insulin glargine 100 units/1 mL 24 UNIT SUBCUT (08:34)
[2020-09-13] MEDS: magnesium lactate 84 mg Tablet PO ×2 (08:34→17:32)
[2020-09-13 09:02] LABS: NT Pro B Type Natriuretic Pept 12521 pg/mL (0-125)
[2020-09-13 09:14] LABS: Alanine Aminotransferase 15 U/L (0-41); Albumin Level 3.1 g/dL (3.5-5.2); Alkaline Phosphatase 112 IU/L (40-130); Anion Gap 16.3 (5-19); Aspartate Amino Transferase 15 U/L (0-40); Blood Urea Nitrogen 71 mg/dL (8-23); C Reactive Protein 8.5 mg/L (0.0-4.9); Calcium 9.2 mg/dL (8.5-10.5); Carbon Dioxide 32 mmol/L (22-29); Chloride 98 mmol/L (98-107); Globulin 3.6 g/dL (1.3-4.6); Glucose 194 mg/dL (65-115); Magnesium 2.2 mg/dL (1.7-2.3); Osmolality Calculated 322 mOsm/kg (285-295); Phosphorus 4.9 mg/dL (2.5-4.5); Potassium 3.3 mmol/L (3.5-5.1); Sodium 143 mmol/L (136-145); Total Bilirubin 0.2 mg/dL (0.15-1.2); Total Protein 6.7 g/dL (6.6-8.7)
--- NOTE | 2020-09-13 11:35 | PC.NURSE ---
Pulse checked by palpation with carotid, 104, telemetry reading 100-104.
[2020-09-13 11:48] LABS: Glucose Point of Care 213 mg/dL (70-110)
--- NOTE | 2020-09-13 14:10 | P.PN_ITS ---
Subjective Subjective: Interval history: no acute overnight events Medications: Reviewed: Yes Vitals/I&O/Wt Last Vital Signs Temp 98.1 F 09/13/20 11:04 Pulse 104 H 09/13/20 11:36 Resp 17 09/13/20 11:04 BP 94/53 09/13/20 11:04 Pulse Ox 94 09/13/20 11:04 09/12/20 09/13/20 09/13/20 22:59 06:59 14:59 Intake Total 240 / 480 467.5 / 947.5 480 / 480 Output Total 250 / 400 325 / 725 300 / 300 Balance - 142.5 / 222.5 180 / 180 Physical Exam Narrative: EXAM NARRATIVE: GEN: Awake, alert, needs frequent reorientation CVS: S1S2 N RS: CTA B/L Abd: Soft, nt/nd , bs+ THEATRICAL VARIETY AGENT: no focal neuro deficits EXT: B/L LE amputation Urinary Catheter Management^: Mejia: Cath Placed During This Visit: yes Reason for Continuing Indwelling Catheter: Assist Healing of Perineal & Sacral Wounds- Incontinent Patients Urinary Catheter Date of Insertion: 09/08/20 Urinary Catheter Time of Insertion: 09:30 Data : 09/13/20 07:38 09/13/20 07:38 Micro: Microbiology 09/07/20 21:34 Blood Culture - Final Blood NO GROWTH AFTER 5 DAYS 09/07/20 18:57 Blood Culture - Final Blood NO GROWTH AFTER 5 DAYS A&P Additional A&P Information Tashi Cole is a 64 year old male with a past medical history of systolic and diastolic heart failure, EF 31%, status post AICD, advanced COPD, chronic atelectasis of right middle lobe status post bronchoscopy, longstanding calcific subcarinal and bilateral hilar adenopathy, severe peripheral vascular disease, GRACIA, on CPAP, CKD stage II-III, diabetes mellitus, bilateral BKA amputee,Recent hospitalization on 07/28/2020 for BLAINE requiring dialysis catheter placement, history of COVID-19 on 07/17 admitted since 09/07 [place] [facility] [place] of a rectal abscess found on daily shift change. Also found to have Acute hypoxic respiratory failure at the tome with findings of bilateral pleural effusions, pulmonary edema. # Rectal abscess On 121, he was noted to have a focal collection in the perineum measuring 8.7 x 2.8 cm. Abscess could not be confirmed without IV contrast. Patient was evaluated by general surgery, noted to have right-sided perineal induration and fullness, he had previously undergone an I&D in the ER after which the wound was packed. It was recommended to continue broad-spectrum antibiotics. He is currently on treatment with cefepime and azithromycin. D/c Azithromycin, contineu cefepime and add Flagyl Upon discharge transition to po levaquin and Augmentin Was previously on Zosyn vancomycin until 09/11 1 specimen from I&D in the ER shows E. coli and Proteus, fairly susceptible isolates. Blood culture is negative to date. #Hypoxic respiratory failure as noted on admission, patient was on room air up until 1221, required supplementation via nasal cannula 1221 overnight, titrated down to room air again this morning. CT of the chest without contrast on 1215 showed diffuse airspace infiltrate throughout the right lower lobe and atelectasis of the right lower lobe the latter is not new compared to previously, this has been attributed to compression from mediastinal lymph node in the past. There are bilateral pleural effusions right greater than left. This does appear to be an increase compared to CAT scan from 07/26/2020. He has been on empiric antibiotic coverage as above to appropriately cover for hospital-acquired pneumonia, completed 7 days. Oxygen requirement has been stable. Urine bacterial antigen negative He did receive Solu-Medrol 40 mg IV every 8 hours 09/07 to 09/10 due to additional concern for COPD exacerbation.Currently on po prednisone, d/c today continue duoneb and pulmicort inhalation #Acute on chronic CHF : upon admission he was also diuresed with IV Lasix and metolazone 10 mg--> transitioned to IV Lasix only. Echocardiogram was performed on 1216 which showed diffuse hypokinesia of the left ventricular ejection fraction of 25 to 30% and mildly dilated LV cavity. Appreciate cardiology recommendation for management He has declined ICD Stress test was attempted but could not be completed as patient did not tolerate. # BLAINE : May be 2/2 cardiorenal syndrome vs diuresis cr stable range at 2.9, urine output 850 cc diuretics on hold for now # persisting leukocytosis : Effusion improving on serial x rays, less likely empyema, afberile Reasess rectal wound stop steroids as may be 2/2 margination #AMS CT head without acute abnormalities, chronic ischemic changes noted mentation fluctuates during the day, likely to be hospial delirium vs underlying vascular dementia carotid doppler 09/10 without significant stenosis # h/o CAD and PAD: continue Asa, plavix, statin, Coreg 3.125 BID dispo: d/c to [place] dvt ppx Heparin Plan for today: continue to hold diuretics, monitor cr, encourage po intake, evaluate persisting lukeocytosis, change abx to cefepime/flagyl, d/c steroids Attestations Medical Necessity Statement*: BLAINE, monitor urien ouput, d/c steroids, change abx , evalute persisting leukocytosis Coding Level of Care Code Acute Farmworker [employer] for Pepe Mcfarland
[2020-09-13] MEDS: metroNIDAZOLE 500 MG Tablet PO ×2 (15:18→20:15)
[2020-09-13] MEDS: sodium chlor 0.9% + KCl 40 mEq 40 MEQ/1,000 ML BAG 75 MEQ IV (15:24)
[2020-09-13 15:49] LABS: Glucose Point of Care 141 mg/dL (70-110)
[2020-09-13 17:01] LABS: Glucose Point of Care 107 mg/dL (70-110)
[2020-09-13] MEDS: cefepime 2,000 MG in sodium chloride 0.9% (plus) 50 ML 100 MG IV (17:33)
--- NOTE | 2020-09-13 20:08 | PM.PN ---
Subjective Subjective: Interval history: He is a man of few words and states he is doing fine. Intermittent NSVT on telemetry. Received 500 ml of D5W yesterday. UO 700 ml last 24 hr. He is still -4.4 L LOS. Medications: Reviewed: Yes Medication Review Details: Current Medications Acetaminophen (Acetaminophen 325 Mg Tablet) 650 mg PO Q4H PRN PRN Reason: Pain Albuterol Sulfate (Albuterol 2.5 Mg/0.5 Ml Neb) 2.5 mg INHALATION Q4H.RESPIRATORY PRN PRN Reason: Shortness Of Breath Albuterol/Ipratropium (Ipratropium-Albuterol 3 Ml Neb) 3 ml INHALATION Q4H.RESPIRATORY PENDING SALE TO [facility] Last Admin: 09/13/20 19:38 Dose: 3 ml Documented by: Aspirin (Aspirin 81 Mg Ec Tablet) 81 mg PO DAILY@08 [facility]END[facility] Last Admin: 09/13/20 08:32 Dose: 81 mg Documented by: Atorvastatin Calcium (Atorvastatin 40 Mg Tablet) 80 mg PO DAILY@20 [facility]ENDING [facility] Last Admin: 09/12/20 19:39 Dose: 80 mg Documented by: Bisacodyl (Bisacodyl 10 Mg Supp) 10 mg IN DAILY PRN PRN Reason: CONSTIPATED Budesonide (Budesonide 0.5 Mg/2 Ml Neb) 0.5 mg INHALATION BID.RESPIRATORY PENDING SALE TO [facility] Last Admin: 09/13/20 19:39 Dose: 0.5 mg Documented by: Bupropion HCl (Bupropion Sr (12 Hr) 150 Mg Tablet) 150 mg PO Q12H PENDING [facility] Last Admin: 09/13/20 08:32 Dose: 150 mg Documented by: Carvedilol (Carvedilol 3.125 Mg Tablet) 3.125 mg PO BID@,20 [facility] Last Admin: 09/13/20 08:31 Dose: 3.125 mg Documented by: Citalopram Hydrobromide (Citalopram 20 Mg Tablet) 20 mg PO DAILY@08 [facility] Last Admin: 09/13/20 08:32 Dose: 20 mg Documented by: Clopidogrel Bisulfate (Clopidogrel 75 Mg Tablet) 75 mg PO DAILY [facility] Last Admin: 09/13/20 08:32 Dose: 75 mg Documented by: Dextrose (Dextrose 50% Syringe 50 Ml) 25 ml IVP ONCE PRN; Protocol PRN Reason: hypoglycemia protocol Dextrose (Dextrose 50% Syringe 50 Ml) 50 ml IVP PRN PRN; Protocol PRN Reason: hypoglycemia protocol Ferrous Sulfate (Ferrous Sulfate Ec 325 Mg Tablet) 325 mg PO BIDWM [facility]END[facility] Last Admin: 09/13/20 17:32 Dose: 325 mg Documented by: Glucagon (Glucagon 1 Mg/Ml Inj 1 Ml) 1 mg IM ONCE PRN; Protocol PRN Reason: Adult Acute Hypoglycemia Prot. Heparin Sodium (Beef Lung) (Heparin 5,000 Unit/Ml Inj 1 Ml) 5,000 unit SUBCUT Q12H PENDING [facility] Last Admin: 09/13/20 08:32 Dose: 5,000 unit Documented by: Dextrose (D5w) 500 mls @ 100 mls/hr IV ONCE PRN; Protocol PRN Reason: Adult Acute Hypoglycemia Prot Cefepime HCl 2,000 mg/ Sodium (Chloride) 50 mls @ 100 mls/hr IV Q24H PENDING [facility] TO [facility]; Protocol Last Admin: 09/13/20 17:33 Dose: 100 mls/hr Documented by: Potassium Chloride/Sodium Chloride (Sodium Chlor 0.9% + Kcl 40 Meq) 40 meq in 1,000 mls @ 75 mls/hr IV .[id number] PENDING [facility] Last Admin: 09/13/20 15:24 Dose: 75 mls/hr Documented by: Insulin Aspart (Insulin Aspart 100 Unit/1 Ml) 0 unit SUBCUT WM&BEDTIME PENDING SALE TO [facility]; Protocol Last Admin: 09/13/20 17:05 Dose: Not Given Documented by: Insulin Glargine (Insulin Glargine 100 Units/1 Ml) 24 unit SUBCUT DAILY@0800 [facility]END[facility] Last Admin: 09/13/20 08:34 Dose: 24 unit Documented by: Magnesium Hydroxide (Magnesium Hydroxide 30 Ml Udc) 30 ml PO DAILY PRN PRN Reason: CONSTIPATON Magnesium Lactate (Magnesium Lactate 84 Mg Tablet) 84 mg PO BID PENDING [facility] Last Admin: 09/13/20 17:32 Dose: 84 mg Documented by: Metronidazole (Metronidazole 500 Mg Tablet) 500 mg PO TID [facility]ENDING [facility] Last Admin: 09/13/20 15:18 Dose: 500 mg Documented by: Nitroglycerin (Nitroglycerin 0.4 Mg Sublingual Tablet) 0.4 mg SUBLINGUAL Q5M PRN PRN Reason: Chest Pain Olanzapine (Olanzapine 10 Mg Vial) 5 mg IM Q6H PRN PRN Reason: SEVERE AGITATION Ondansetron HCl (Ondansetron 4 Mg Tablet) 4 mg PO Q4H PRN PRN Reason: Nausea Pantoprazole Sodium (Pantoprazole Dr 40 Mg Tablet) 40 mg PO BID@06,18 PENDING [facility]ALE [facility] Last Admin: 09/13/20 17:32 Dose: 40 mg Documented by: Polyethylene Glycol (Polyethylene Glycol 3350 Pkt 17 Gm) 17 gm PO DAILY@08 PENDING [facility]ALE [facility] Last Admin: 09/13/20 08:31 Dose: 17 gm Documented by: Potassium Chloride (Potassium Chloride Er 20 Meq Tablet) 40 meq PO DAILY PENDING SALE TO [facility] Last Admin: 09/13/20 08:31 Dose: 40 meq Documented by: Sucralfate (Sucralfate 1 Gm Tablet) 1 gm PO BIDAC PENDING SALE TO [facility] Last Admin: 09/13/20 17:32 Dose: 1 gm Documented by: Tamsulosin HCl (Tamsulosin 0.4 Mg Capsule) 0.4 mg PO DAILY@08 PENDING [facility]ALE [facility] Last Admin: 09/13/20 08:32 Dose: 0.4 mg Documented by: Vitals/I&O/Wt Last Vital Signs Temp 98.7 F 09/13/20 19:15 Pulse 92 09/13/20 19:45 Resp 18 09/13/20 19:39 BP 104/70 09/13/20 19:15 Pulse Ox 94 09/13/20 19:39 09/13/20 09/13/20 09/13/20 06:59 14:59 22:59 Intake Total 467.5 / 997.5 480 / 480 120 / 600 Output Total 325 / 725 300 / 300 150 / 450 Balance 142.5 / 272.5 180 / 180 -30 / 150 Physical Exam Narrative: EXAM NARRATIVE: Const COMMON NORMALS: no acute distress, average body habitus, alert and well nourished GENERAL APPEARANCE: cooperative, comfortable, well kempt and well developed ORIENTATION/CONSCIOUSNESS: Yes oriented to person (Self) [facility] COMMON NORMALS: normocephalic, atraumatic, hearing grossly normal bilaterally, external ears normal HEAD & SCALP: normocephalic and atraumatic FACE & SINUS: face symmetric NOSE: Normal external nose present EXTERNAL EAR: Yes external ears normal Eye COMMON NORMALS: Equal, round and reactive pupils present, EOMs intact bilaterally and conjunctivae normal ALIGNMENT: Yes alignment normal CONJUNCTIVA: Yes conjunctivae normal SCLERA: sclerae normal PUPIL: Yes Equal, round and reactive pupils present Neck/C-Spine COMMON NORMALS: no lymphadenopathy, supple, no JVD and Thyroid normal; negative for No carotid bruits Chest COMMONS NORMALS: normal inspection of the chest CHEST: Yes Symmetrical chest wall rise and No tenderness Resp COMMON NORMALS: normal respiratory effort, No use of accessory muscles, clear to auscultation bilaterally EFFORT & INSPECTION: Yes able to speak in complete sentences, No tachypneic and No audible wheezes AUSCULTATION: clear to auscultation bilaterally, no crackles, no rales, no rhonchi and no wheezes Cardio COMMON NORMALS: no JVD, regular rate, regular rhythm, S1 normal heart sound present, S2 normal heart sound present and Peripheral pulses 2+ throughout; negative for No gallops present (Cardio) and negative for No clicks present (Cardio) JUGULAR VENOUS DISTENTION: no JVD PALPATION: normal PMI, no heave, no palpable S3, no palpable S4 and no thrill RATE: regular rate, tachycardia+ RHYTHM: regular rhythm HEART SOUNDS: S1 normal heart sound present, S2 normal heart sound present,, no gallops and no murmurs PERIPHERAL PULSES: Peripheral pulses 2+ throughout GI COMMON NORMALS: Normal to inspection, nondistended, normoactive bowel sounds present, Soft to palpation, non-tender PALPATION: Yes Soft to palpation and Yes Extremity NARRATIVE EXTREMITY EXAM: Bilateral below-knee amputation, no edema in stump Neuro COMMON NORMALS: no focal motor deficits SENSORIUM/ORIENTATION: Yes alert and Yes oriented to person (Self) CRANIAL NERVES: Yes CN normal except as noted Urinary Catheter Management^: Mejia: Cath Placed During This Visit: yes, but has since been removed by the nurse Reason for Continuing Indwelling Catheter: Decision to DC Catheter Urinary Catheter Date of Insertion: 09/08/20 Urinary Catheter Time of Insertion: 09:30 Date Urinary Catheter Removed: 09/13/20 Time Urinary Catheter Discontinued: 15:20 Data : 09/13/20 07:38 09/13/20 07:38 Micro: Microbiology 09/07/20 21:34 Blood Culture - Final Blood NO GROWTH AFTER 5 DAYS 09/07/20 18:57 Blood Culture - Final Blood NO GROWTH AFTER 5 DAYS A&P Assessment and plan (1) Congestive heart failure: ACC/AHA stage C, NYHA class III , 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 -renal function worsened and he is tachycardic. Hold lasix. I will bolus IV fluids as his PO intake is very poor. -On Coreg 3.125 twice daily. -May try to add low-dose Isordil and hydralazine if blood pressure allows. DELVIS/ARB/ARNI may not be an option with his CKD. -BUN 51-->56--61-->58-->71 and creatinine 2.6-->2.8-->2.9-->2.7-->2.9 with CO2 of 26->29-->33--32. Baseline creatinine 1.8-2. Patient is DNR and DNI and explicitly states that he does not want ICD. I think in his situation medical management would be the way to go. -No further cardiac testing at this point. Mild drop in LV function and unable to hold still for stress test. -I had a long discussion with patient's daughter Brittney. She was updated about patient's current situation. She is agreeable with the plan of no testing at this point and honoring patients wishes of DNR/DNI. Status: Acute Qualifiers: Heart failure chronicity: acute on chronic Heart failure type: combined systolic and diastolic Qualified Code(s): I50.43 - Acute on chronic combined systolic (congestive) and diastolic (congestive) heart failure (2) Coronary artery disease: No CP. Status: Chronic Qualifiers: Associated angina: without angina Coronary Disease-Associated Artery/Lesion type: [place] artery [place] vs. transplanted heart: [place] heart Qualified Code(s): I25.10 - Atherosclerotic heart disease of [place] coronary artery without angina pectoris (3) Type 2 diabetes mellitus: Poorly controlled diabetes mellitus Status: Chronic Qualifiers: Chronic kidney disease stage: stage 4 (severe) Diabetes mellitus complication detail: with chronic kidney disease Diabetes mellitus complication status: with kidney complications Diabetes mellitus skilled nursing insulin use: with medical terminologist use Qualified Code(s): E11.22 - Type 2 diabetes mellitus with diabetic chronic kidney disease; N18.4 - Chronic kidney disease, stage 4 (severe); Z79.4 - assisted (current) use of insulin (4) Nicotine dependence, cigarettes, with other nicotine-induced disorders: Status: Chronic (5) Perineal abscess: Status: Resolved (6) CKD (chronic kidney disease) stage 4, GFR 15-29 ml/min: Status: Acute Additional A&P Information Intermittent confusion: Normal CT head from few days back. Repeat CT head has been ordered. I think there is a component of underlying dementia. As per daughter he has been confused intermittently for some time now. Hypernatremia: resolved Nonsustained ventricular tachycardia: Continue Coreg, keep potassium more than 4 and magnesium more than 2. Tachycardia: Continue to monitor closely on telemetry. Elevated troponin in setting of decompensated congestive heart failure and chronic kidney disease Normocytic anemia (iron deficiency and anemia of chronic disease) Thrombocytosis Hypokalemia: replaced Attestations Medical Necessity Statement*: Needs hospital stay for decompensated congestive heart failure. Time Spent in Patient Care: Greater than 35 minutes (>than 50% of time spent in counselling and/or direct pt care on unit). 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 transplanted heart: [place] heart Type 2 diabetes mellitus E11.22; N18.4; Z79.4 Chronic kidney disease stage: stage 4 (severe) Diabetes mellitus complication detail: with chronic kidney disease Diabetes mellitus complication status: with kidney complications Diabetes mellitus medical terminologist insulin use: with skilled nursing use Nicotine dependence, cigarettes, with other nicotine-induced disorders F17.218 Perineal abscess L02.215 CKD (chronic kidney disease) stage 4, GFR 15-29 ml/min N18.4
[2020-09-13] MEDS: atorvastatin 40 mg Tablet 80 MG PO (20:15)
[2020-09-13 20:57] LABS: Glucose Point of Care 183 mg/dL (70-110)
[2020-09-14] VITALS (18 sets, daily range): BP systolic 100–128; BP diastolic 59–81; PULSE 74–110; RESP 15–19; TEMP 36.4–36.9; O2SAT 91–98
[2020-09-14] MEDS: ipratropium-albuterol 3 mL Neb INHALATION ×4 (01:08→20:05)
[2020-09-14] MEDS: sodium chlor 0.9% + KCl 40 mEq 40 MEQ/1,000 ML BAG 75 MEQ IV (03:31)
--- NOTE | 2020-09-14 05:01 | PC.NURSE ---
Patient incont of urine. had large amount of output in bed.
[2020-09-14] MEDS: pantoprazole DR 40 mg Tablet PO ×2 (06:12→18:49)
[2020-09-14] MEDS: sucralfate 1 gm Tablet PO ×2 (06:12→18:49)
[2020-09-14 06:32] LABS: Glucose Point of Care 157 mg/dL (70-110)
[2020-09-14] MEDS: budesonide 0.5 mg/2 mL Neb INHALATION ×2 (07:26→20:05)
[2020-09-14 08:29] LABS: Basophils # 0.1 10^3/uL (0.0-0.1); Basophils % 0.3 %; Eosinophils # 0.1 10^3/uL (0.0-0.8); Eosinophils % 0.6 %; Hematocrit 33.9 % (42.0-52.0); Hemoglobin 10.1 g/dL (11.7-16.6); Lymphocytes # 2.2 10^3/uL (0.8-4.8); Lymphocytes % 10.8 %; Mean Corpuscular HGB Conc 29.8 g/dL (30.0-36.0); Mean Corpuscular Hemoglobin 28.1 pg (28.0-34.0); Mean Corpuscular Volume 94.4 fL (80-94); Mean Platelet Volume 9.3 fL (7.4-10.4); Monocytes # 1.2 10^3/uL (0.2-0.9); Monocytes % 5.6 %; Neutrophils # 16.75 10^3/uL (1.8-7.7); Neutrophils % 80.9 %; Nucleated Red Blood Cells % 0 %; Platelet Count 544 10^3/cmm (130-400); Red Blood Count 3.59 10^6/uL (4.1-5.3); Red Cell Distribution Width 15.9 % (12.1-15.1); White Blood Count 20.7 10^3/uL (4.0-10.0)
[2020-09-14] MEDS: carvedilol 3.125 mg Tablet PO (08:50)
[2020-09-14] MEDS: aspirin 81 mg EC Tablet PO (08:51)
[2020-09-14] MEDS: citalopram 20 mg Tablet PO (08:51)
[2020-09-14] MEDS: clopidogrel 75 mg Tablet PO (08:51)
[2020-09-14] MEDS: magnesium lactate 84 mg Tablet PO ×2 (08:51→18:49)
[2020-09-14] MEDS: metroNIDAZOLE 500 MG Tablet PO ×3 (08:51→21:40)
[2020-09-14] MEDS: potassium chloride ER 20 mEq Tablet 40 MEQ PO (08:51)
[2020-09-14] MEDS: ferrous sulfate EC 325 mg Tablet PO ×2 (08:51→18:50)
[2020-09-14] MEDS: tamsulosin 0.4 mg Capsule PO (08:51)
[2020-09-14] MEDS: buPROPion SR (12 HR) 150 mg Tablet PO ×2 (08:51→21:40)
[2020-09-14] MEDS: insulin glargine 100 units/1 mL 24 UNIT SUBCUT (08:52)
[2020-09-14] MEDS: heparin 5,000 unit/mL INJ 1 mL 5000 UNIT SUBCUT ×2 (08:52→21:41)
[2020-09-14] MEDS: polyethylene glycol 3350 Pkt 17 gm PO (08:53)
[2020-09-14 08:58] LABS: Alanine Aminotransferase 11 U/L (0-41); Albumin Level 2.9 g/dL (3.5-5.2); Alkaline Phosphatase 102 IU/L (40-130); Anion Gap 14.3 (5-19); Aspartate Amino Transferase 11 U/L (0-40); Blood Urea Nitrogen 68 mg/dL (8-23); Calcium 8.8 mg/dL (8.5-10.5); Carbon Dioxide 26 mmol/L (22-29); Chloride 112 mmol/L (98-107); Globulin 3.3 g/dL (1.3-4.6); Glomerular Filtration Rate 22.9 mL/min (90-130); Glucose 184 mg/dL (65-115); Osmolality Calculated 331 mOsm/kg (285-295); Potassium 4.3 mmol/L (3.5-5.1); Sodium 148 mmol/L (136-145); Total Bilirubin 0.2 mg/dL (0.15-1.2); Total Protein 6.2 g/dL (6.6-8.7)
[2020-09-14 11:23] LABS: Glucose Point of Care 222 mg/dL (70-110)
--- NOTE | 2020-09-14 12:11 | PC.SOCIAL ---
IMM Updated Updated pt on Pg 2 IMM. No questions voiced. Provided pt a copy. Signed, dated, & timed copy in chart.
[2020-09-14] MEDS: sodium chlor 0.45% +KCl 20 mEq 20 MEQ/1,000 ML BAG 50 MEQ IV ×2 (12:51→18:50)
--- NOTE | 2020-09-14 13:22 | PM.PN ---
Subjective Subjective: Interval history: No complaints, Runs of NSVT on tele. He was started on 1/2 NS with 20 meq of KCl at 50 cc/hr. Medications: Reviewed: Yes Medication Review Details: Current Medications Acetaminophen (Acetaminophen 325 Mg Tablet) 650 mg PO Q4H PRN PRN Reason: Pain Albuterol Sulfate (Albuterol 2.5 Mg/0.5 Ml Neb) 2.5 mg INHALATION Q4H.RESPIRATORY PRN PRN Reason: Shortness Of Breath Albuterol/Ipratropium (Ipratropium-Albuterol 3 Ml Neb) 3 ml INHALATION Q4H.RESPIRATORY [facility] Last Admin: 09/14/20 11:11 Dose: Not Given Documented by: Aspirin (Aspirin 81 Mg Ec Tablet) 81 mg PO DAILY@ [facility] Last Admin: 09/14/20 08:51 Dose: 81 mg Documented by: Atorvastatin Calcium (Atorvastatin 40 Mg Tablet) 80 mg PO DAILY@ [facility] Last Admin: 09/13/20 20:15 Dose: 80 mg Documented by: Bisacodyl (Bisacodyl 10 Mg Supp) 10 mg AK DAILY PRN PRN Reason: CONSTIPATED Budesonide (Budesonide 0.5 Mg/2 Ml Neb) 0.5 mg INHALATION BID.RESPIRATORY [facility] Last Admin: 09/14/20 07:26 Dose: 0.5 mg Documented by: Bupropion HCl (Bupropion Sr (12 Hr) 150 Mg Tablet) 150 mg PO Q12H [facility] Last Admin: 09/14/20 08:51 Dose: 150 mg Documented by: Carvedilol (Carvedilol 3.125 Mg Tablet) 3.125 mg PO BID@, [facility] Last Admin: 09/14/20 08:50 Dose: 3.125 mg Documented by: Citalopram Hydrobromide (Citalopram 20 Mg Tablet) 20 mg PO DAILY@08 [facility] Last Admin: 09/14/20 08:51 Dose: 20 mg Documented by: Clopidogrel Bisulfate (Clopidogrel 75 Mg Tablet) 75 mg PO DAILY [facility] Last Admin: 09/14/20 08:51 Dose: 75 mg Documented by: Dextrose (Dextrose 50% Syringe 50 Ml) 25 ml IVP ONCE PRN; Protocol PRN Reason: hypoglycemia protocol Dextrose (Dextrose 50% Syringe 50 Ml) 50 ml IVP PRN PRN; Protocol PRN Reason: hypoglycemia protocol Ferrous Sulfate (Ferrous Sulfate Ec 325 Mg Tablet) 325 mg PO BIDWM [facility] Last Admin: 09/14/20 08:51 Dose: 325 mg Documented by: Glucagon (Glucagon 1 Mg/Ml Inj 1 Ml) 1 mg IM ONCE PRN; Protocol PRN Reason: Adult Acute Hypoglycemia Prot. Heparin Sodium (Beef Lung) (Heparin 5,000 Unit/Ml Inj 1 Ml) 5,000 unit SUBCUT Q12H [facility] Last Admin: 09/14/20 08:52 Dose: 5,000 unit Documented by: Dextrose (D5w) 500 mls @ 100 mls/hr IV ONCE PRN; Protocol PRN Reason: Adult Acute Hypoglycemia Prot Cefepime HCl 2,000 mg/ Sodium (Chloride) 50 mls @ 100 mls/hr IV Q24H [facility]; Protocol Last Admin: 09/13/20 17:33 Dose: 100 mls/hr Documented by: Potassium Chloride/Sodium Chloride (Sodium Chlor 0.9% + Kcl 40 Meq) 40 meq in 1,000 mls @ 75 mls/hr IV .[id number] [facility] Last Admin: 09/14/20 03:31 Dose: 75 mls/hr Documented by: Potassium Chloride/Sodium Chloride (Sodium Chlor 0.45% +Kcl 20 Meq) 20 meq in 1,000 mls @ 50 mls/hr IV .Q20H [facility] Last Admin: 09/14/20 12:51 Dose: 50 mls/hr Documented by: Insulin Aspart (Insulin Aspart 100 Unit/1 Ml) 0 unit SUBCUT WM&BEDTIME [facility]; Protocol Last Admin: 09/14/20 12:51 Dose: 10 unit Documented by: Magnesium Hydroxide (Magnesium Hydroxide 30 Ml Udc) 30 ml PO DAILY PRN PRN Reason: CONSTIPATON Magnesium Lactate (Magnesium Lactate 84 Mg Tablet) 84 mg PO BID [facility] Last Admin: 09/14/20 08:51 Dose: 84 mg Documented by: Metronidazole (Metronidazole 500 Mg Tablet) 500 mg PO TID [facility] Last Admin: 09/14/20 08:51 Dose: 500 mg Documented by: Nitroglycerin (Nitroglycerin 0.4 Mg Sublingual Tablet) 0.4 mg SUBLINGUAL Q5M PRN PRN Reason: Chest Pain Olanzapine (Olanzapine 10 Mg Vial) 5 mg IM Q6H PRN PRN Reason: SEVERE AGITATION Ondansetron HCl (Ondansetron 4 Mg Tablet) 4 mg PO Q4H PRN PRN Reason: Nausea Pantoprazole Sodium (Pantoprazole Dr 40 Mg Tablet) 40 mg PO BID@06,18 [facility] Last Admin: 09/14/20 06:12 Dose: 40 mg Documented by: Polyethylene Glycol (Polyethylene Glycol 3350 Pkt 17 Gm) 17 gm PO DAILY@08 [facility] Last Admin: 09/14/20 08:53 Dose: 17 gm Documented by: Potassium Chloride (Potassium Chloride Er 20 Meq Tablet) 40 meq PO DAILY [facility] Last Admin: 09/14/20 08:51 Dose: 40 meq Documented by: Sucralfate (Sucralfate 1 Gm Tablet) 1 gm PO BIDAC [facility] Last Admin: 09/14/20 06:12 Dose: 1 gm Documented by: Tamsulosin HCl (Tamsulosin 0.4 Mg Capsule) 0.4 mg PO DAILY@ [facility] Last Admin: 09/14/20 08:51 Dose: 0.4 mg Documented by: Vitals/I&O/Wt Last Vital Signs Temp 98.0 F 09/14/20 12:00 Pulse 89 09/14/20 12:00 Resp 16 09/14/20 12:00 BP 123/76 09/14/20 12:00 Pulse Ox 98 09/14/20 12:00 09/13/20 09/14/20 09/14/20 22:59 06:59 14:59 Intake Total 120 / 600 908.75 / 1508.75 120 / 120 Output Total 150 / 450 Balance -30 / 150 908.75 / 1058.75 120 / 120 Physical Exam Narrative: EXAM NARRATIVE: Const COMMON NORMALS: no acute distress, average body habitus, alert and well nourished GENERAL APPEARANCE: cooperative, comfortable, well kempt and well developed ORIENTATION/CONSCIOUSNESS: Yes oriented to person (Self) [facility] COMMON NORMALS: normocephalic, atraumatic, hearing grossly normal bilaterally, external ears normal HEAD & SCALP: normocephalic and atraumatic FACE & SINUS: face symmetric NOSE: Normal external nose present EXTERNAL EAR: Yes external ears normal Eye COMMON NORMALS: Equal, round and reactive pupils present, EOMs intact bilaterally and conjunctivae normal ALIGNMENT: Yes alignment normal CONJUNCTIVA: Yes conjunctivae normal SCLERA: sclerae normal PUPIL: Yes Equal, round and reactive pupils present Neck/C-Spine COMMON NORMALS: no lymphadenopathy, supple, no JVD and Thyroid normal; negative for No carotid bruits Chest COMMONS NORMALS: normal inspection of the chest CHEST: Yes Symmetrical chest wall rise and No tenderness Resp COMMON NORMALS: normal respiratory effort, No use of accessory muscles, clear to auscultation bilaterally EFFORT & INSPECTION: Yes able to speak in complete sentences, No tachypneic and No audible wheezes AUSCULTATION: clear to auscultation bilaterally, no crackles, no rales, no rhonchi and no wheezes Cardio COMMON NORMALS: no JVD, regular rate, regular rhythm, S1 normal heart sound present, S2 normal heart sound present and Peripheral pulses 2+ throughout; negative for No gallops present (Cardio) and negative for No clicks present (Cardio) JUGULAR VENOUS DISTENTION: no JVD PALPATION: normal PMI, no heave, no palpable S3, no palpable S4 and no thrill RATE: regular rate, tachycardia+ RHYTHM: regular rhythm HEART SOUNDS: S1 normal heart sound present, S2 normal heart sound present,, no gallops and no murmurs PERIPHERAL PULSES: Peripheral pulses 2+ throughout GI COMMON NORMALS: Normal to inspection, nondistended, normoactive bowel sounds present, Soft to palpation, non-tender PALPATION: Yes Soft to palpation and Yes Extremity NARRATIVE EXTREMITY EXAM: Bilateral below-knee amputation, no edema in stump Neuro COMMON NORMALS: no focal motor deficits SENSORIUM/ORIENTATION: Yes alert and Yes oriented to person (Self) CRANIAL NERVES: Yes CN normal except as noted Urinary Catheter Management^: Mejia: Cath Placed During This Visit: yes, but has since been removed by the nurse Reason for Continuing Indwelling Catheter: Decision to DC Catheter Urinary Catheter Date of Insertion: 09/08/20 Urinary Catheter Time of Insertion: 09:30 Date Urinary Catheter Removed: 09/13/20 Time Urinary Catheter Discontinued: 15:20 Data : 09/14/20 08:05 09/14/20 08:05 A&P Assessment and plan (1) Congestive heart failure: ACC/AHA stage C, NYHA class III , 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 -On Coreg 3.125 twice daily. -May try to add low-dose Isordil and hydralazine if blood pressure allows. DELVIS/ARB/ARNI or aldactonemay not be an option with his CKD. -BUN 51-->56--61-->58-->71-->68 and creatinine 2.6-->2.8-->2.9-->2.7-->2.9 -->2.8 with CO2 of 26->29-->33--32--26. Baseline creatinine 1.8-2. Renal vaccine improving. Patient is DNR and DNI and explicitly states that he does not want ICD. I think in his situation medical management would be the way to go. -No further cardiac testing at this point. Mild drop in LV function and unable to hold still for stress test. -I had a long discussion with patient's daughter Brittney. She was updated about patient's current situation. She is agreeable with the plan of no testing at this point and honoring patients wishes of DNR/DNI. Status: Acute Qualifiers: Heart failure chronicity: acute on chronic Heart failure type: combined systolic and diastolic Qualified Code(s): I50.43 - Acute on chronic combined systolic (congestive) and diastolic (congestive) heart failure (2) Coronary artery disease: No CP. Status: Chronic Qualifiers: Associated angina: without angina Coronary Disease-Associated Artery/Lesion type: [place] artery [place] vs. transplanted heart: [place] heart Qualified Code(s): I25.10 - Atherosclerotic heart disease of [place] coronary artery without angina pectoris (3) Type 2 diabetes mellitus: Poorly controlled diabetes mellitus Status: Chronic Qualifiers: Chronic kidney disease stage: stage 4 (severe) Diabetes mellitus complication detail: with chronic kidney disease Diabetes mellitus complication status: with kidney complications Diabetes mellitus group home insulin use: with salvage determiner use Qualified Code(s): E11.22 - Type 2 diabetes mellitus with diabetic chronic kidney disease; N18.4 - Chronic kidney disease, stage 4 (severe); 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 Repeat CT head has been ordered. I think there is a component of underlying dementia. As per daughter he has been confused intermittently for some time now. Hypernatremia: resolved Nonsustained ventricular tachycardia: Continue Coreg, keep potassium more than 4 and magnesium more than 2. Tachycardia: Continue to monitor closely on telemetry. Elevated troponin in setting of decompensated congestive heart failure and chronic kidney disease Normocytic anemia (iron deficiency and anemia of chronic disease) Thrombocytosis Hypokalemia: replaced Attestations Medical Necessity Statement*: Needs hospital stay for decompensated congestive heart failure. Time Spent in Patient Care: Greater than 35 minutes (>than 50% of time spent in counselling and/or direct pt care on unit). Coding Level of Care Code Acute First Aid Teacher for Pepe Mcfarland Diagnoses Congestive heart failure I50.43 Heart failure chronicity: acute on chronic Heart failure type: combined systolic and diastolic Coronary artery disease I25.10 Associated angina: without angina Coronary Disease-Associated Artery/Lesion type: [place] artery [place] vs. transplanted heart: [place] heart Type 2 diabetes mellitus E11.22; N18.4; Z79.4 Chronic kidney disease stage: stage 4 (severe) Diabetes mellitus complication detail: with chronic kidney disease Diabetes mellitus complication status: with kidney complications Diabetes mellitus group home insulin use: with salvage determiner use Nicotine dependence, cigarettes, with other nicotine-induced disorders F17.218 Perineal abscess L02.215 CKD (chronic kidney disease) stage 4, GFR 15-29 ml/min N18.4
--- NOTE | 2020-09-14 14:27 | PM.PN ---
Subjective Subjective: Interval history: Patient has been doing well denies any significant pain, wound is being packed, has some purulent drainage Vitals/I&O/Wt Last Vital Signs Temp 98.0 F 09/14/20 12:00 Pulse 89 09/14/20 12:00 Resp 16 09/14/20 12:00 BP 123/76 09/14/20 12:00 Pulse Ox 98 09/14/20 12:00 09/13/20 09/14/20 09/14/20 22:59 06:59 14:59 Intake Total 120 / 1508.75 908.75 / 1508.75 360 / 360 Output Total 150 / 450 Balance -30 / 1058.75 908.75 / 1058.75 360 / 360 Physical Exam Narrative: EXAM NARRATIVE: Perianal area: Cellulitis resolved, wound measures 2 x 2 cm with minimal purulent drainage Urinary Catheter Management^: Mejia: Cath Placed During This Visit: yes, but has since been removed by the nurse Reason for Continuing Indwelling Catheter: Decision to DC Catheter Urinary Catheter Date of Insertion: 09/08/20 Urinary Catheter Time of Insertion: 09:30 Date Urinary Catheter Removed: 09/13/20 Time Urinary Catheter Discontinued: 15:20 Data : 09/14/20 08:05 09/14/20 08:05 A&P Assessment and plan (1) Perineal abscess: Overall doing okay Continue wet-to-dry dressing changes once daily with quarter inch ribbon gauze Patient can be transitioned to oral antibiotics Status: Resolved Attestations Medical Necessity Statement*: Perianal abscess with multiple medical comorbidities requiring continued inpatient stay Coding Level of Care Code Acute Housekeeping Cleaner for Pepe Mcfarland Diagnoses Perineal abscess L02.215
[2020-09-14 16:19] LABS: Glucose Point of Care 81 mg/dL (70-110)
--- NOTE | 2020-09-14 17:25 | PM.PN ---
Subjective Subjective: Interval history: Hypernatremia today. Fluids changed from D5 normal saline to half NS with added 20 mEq of potassium, rate reduced from 75 to 50 cc an hour. Kidney function is stable. No acute overnight events. Medications: Reviewed: Yes Medication Review Details: Current Medications Acetaminophen (Acetaminophen 325 Mg Tablet) 650 mg PO Q4H PRN PRN Reason: Pain Albuterol Sulfate (Albuterol 2.5 Mg/0.5 Ml Neb) 2.5 mg INHALATION Q4H.RESPIRATORY PRN PRN Reason: Shortness Of Breath Albuterol/Ipratropium (Ipratropium-Albuterol 3 Ml Neb) 3 ml INHALATION Q4H.RESPIRATORY [facility] Last Admin: 09/14/20 11:11 Dose: Not Given Documented by: Aspirin (Aspirin 81 Mg Ec Tablet) 81 mg PO DAILY@ [facility] Last Admin: 09/14/20 08:51 Dose: 81 mg Documented by: Atorvastatin Calcium (Atorvastatin 40 Mg Tablet) 80 mg PO DAILY@ [facility] Last Admin: 09/13/20 20:15 Dose: 80 mg Documented by: Bisacodyl (Bisacodyl 10 Mg Supp) 10 mg LA DAILY PRN PRN Reason: CONSTIPATED Budesonide (Budesonide 0.5 Mg/2 Ml Neb) 0.5 mg INHALATION BID.RESPIRATORY [facility] Last Admin: 09/14/20 07:26 Dose: 0.5 mg Documented by: Bupropion HCl (Bupropion Sr (12 Hr) 150 Mg Tablet) 150 mg PO Q12H [facility] Last Admin: 09/14/20 08:51 Dose: 150 mg Documented by: Carvedilol (Carvedilol 3.125 Mg Tablet) 3.125 mg PO BID@, [facility] Last Admin: 09/14/20 08:50 Dose: 3.125 mg Documented by: Citalopram Hydrobromide (Citalopram 20 Mg Tablet) 20 mg PO DAILY@ [facility] Last Admin: 09/14/20 08:51 Dose: 20 mg Documented by: Clopidogrel Bisulfate (Clopidogrel 75 Mg Tablet) 75 mg PO DAILY [facility] Last Admin: 09/14/20 08:51 Dose: 75 mg Documented by: Dextrose (Dextrose 50% Syringe 50 Ml) 25 ml IVP ONCE PRN; Protocol PRN Reason: hypoglycemia protocol Dextrose (Dextrose 50% Syringe 50 Ml) 50 ml IVP PRN PRN; Protocol PRN Reason: hypoglycemia protocol Ferrous Sulfate (Ferrous Sulfate Ec 325 Mg Tablet) 325 mg PO BIDWM [facility] Last Admin: 09/14/20 08:51 Dose: 325 mg Documented by: Glucagon (Glucagon 1 Mg/Ml Inj 1 Ml) 1 mg IM ONCE PRN; Protocol PRN Reason: Adult Acute Hypoglycemia Prot. Heparin Sodium (Beef Lung) (Heparin 5,000 Unit/Ml Inj 1 Ml) 5,000 unit SUBCUT Q12H [facility] Last Admin: 09/14/20 08:52 Dose: 5,000 unit Documented by: Dextrose (D5w) 500 mls @ 100 mls/hr IV ONCE PRN; Protocol PRN Reason: Adult Acute Hypoglycemia Prot Cefepime HCl 2,000 mg/ Sodium (Chloride) 50 mls @ 100 mls/hr IV Q24H [facility]; Protocol Last Admin: 09/13/20 17:33 Dose: 100 mls/hr Documented by: Potassium Chloride/Sodium Chloride (Sodium Chlor 0.9% + Kcl 40 Meq) 40 meq in 1,000 mls @ 75 mls/hr IV .[id number] [facility] Last Admin: 09/14/20 03:31 Dose: 75 mls/hr Documented by: Potassium Chloride/Sodium Chloride (Sodium Chlor 0.45% +Kcl 20 Meq) 20 meq in 1,000 mls @ 50 mls/hr IV .Q20H [facility] Last Admin: 09/14/20 12:51 Dose: 50 mls/hr Documented by: Insulin Aspart (Insulin Aspart 100 Unit/1 Ml) 0 unit SUBCUT WM&BEDTIME [facility]; Protocol Last Admin: 09/14/20 12:51 Dose: 10 unit Documented by: Magnesium Hydroxide (Magnesium Hydroxide 30 Ml Udc) 30 ml PO DAILY PRN PRN Reason: CONSTIPATON Magnesium Lactate (Magnesium Lactate 84 Mg Tablet) 84 mg PO BID [facility] Last Admin: 09/14/20 08:51 Dose: 84 mg Documented by: Metronidazole (Metronidazole 500 Mg Tablet) 500 mg PO TID [facility] Last Admin: 09/14/20 08:51 Dose: 500 mg Documented by: Nitroglycerin (Nitroglycerin 0.4 Mg Sublingual Tablet) 0.4 mg SUBLINGUAL Q5M PRN PRN Reason: Chest Pain Olanzapine (Olanzapine 10 Mg Vial) 5 mg IM Q6H PRN PRN Reason: SEVERE AGITATION Ondansetron HCl (Ondansetron 4 Mg Tablet) 4 mg PO Q4H PRN PRN Reason: Nausea Pantoprazole Sodium (Pantoprazole Dr 40 Mg Tablet) 40 mg PO BID@06,18 [facility] Last Admin: 09/14/20 06:12 Dose: 40 mg Documented by: Polyethylene Glycol (Polyethylene Glycol 3350 Pkt 17 Gm) 17 gm PO DAILY@08 [facility] Last Admin: 09/14/20 08:53 Dose: 17 gm Documented by: Potassium Chloride (Potassium Chloride Er 20 Meq Tablet) 40 meq PO DAILY [facility] Last Admin: 09/14/20 08:51 Dose: 40 meq Documented by: Sucralfate (Sucralfate 1 Gm Tablet) 1 gm PO BIDAC [facility] Last Admin: 09/14/20 06:12 Dose: 1 gm Documented by: Tamsulosin HCl (Tamsulosin 0.4 Mg Capsule) 0.4 mg PO DAILY@08 [facility] Last Admin: 09/14/20 08:51 Dose: 0.4 mg Documented by: Vitals/I&O/Wt Last Vital Signs Temp 97.6 F 09/14/20 15:33 Pulse 87 09/14/20 15:33 Resp 15 09/14/20 15:33 BP 107/60 09/14/20 15:33 Pulse Ox 98 09/14/20 15:33 09/14/20 09/14/20 09/14/20 06:59 14:59 22:59 Intake Total 908.75 / 1508.75 360 / 360 Balance 908.75 / 1058.75 360 / 360 Physical Exam Narrative: EXAM NARRATIVE: GEN: Awake, alert and oriented, no acute distress CVS: S1S2 N RS: CTA B/L Abd: Soft, nt/nd , bs+ Urinary Catheter Management^: Mejia: Cath Placed During This Visit: yes, but has since been removed by the nurse Reason for Continuing Indwelling Catheter: Decision to DC Catheter Urinary Catheter Date of Insertion: 09/08/20 Urinary Catheter Time of Insertion: 09:30 Date Urinary Catheter Removed: 09/13/20 Time Urinary Catheter Discontinued: 15:20 Data : 09/14/20 08:05 09/14/20 08:05 A&P Assessment and plan (1) Acute respiratory failure with hypoxia: Status: Acute (2) CAD (coronary artery disease): Status: Acute (3) Rectal abscess: Status: Acute (4) Acute hyperkalemia: Status: Acute (5) Acute on chronic renal failure: Status: Acute (6) COVID-19: Status: Acute (7) Chronic systolic CHF (congestive heart failure): Status: Acute (8) S/P bilateral BKA (below knee amputation): -Secondary to severe peripheral vascular disease, vasculopathy, diabetes Status: Chronic (9) Type 2 diabetes mellitus: -Continue sliding scale, Lantus 24 units daily Status: Chronic Qualifiers: Chronic kidney disease stage: stage 4 (severe) Diabetes mellitus complication detail: with chronic kidney disease Diabetes mellitus complication status: with kidney complications Diabetes mellitus buttermaker continuous churn insulin use: with buttermaker continuous churn use Qualified Code(s): E11.22 - Type 2 diabetes mellitus with diabetic chronic kidney disease; N18.4 - Chronic kidney disease, stage 4 (severe); Z79.4 - buttermaker continuous churn (current) use of insulin (10) Peripheral vascular disease: Aspirin, statin, Plavix Status: Chronic (11) Hypertension: Status: Chronic (12) CKD stage 3 secondary to diabetes: Status: Chronic (13) COPD (chronic obstructive pulmonary disease): Status: Chronic (14) Acute on chronic anemia: Status: Acute (15) Acidosis: Resolved Status: Acute (16) Thrombocytosis: -Likely secondary to infection, chronic hypoxia -Peripheral smear unremarkable Status: Acute (17) AMS (altered mental status): Status: Acute Additional A&P Information Tashi Cole is a 64 year old male with a past medical history of systolic and diastolic heart failure, EF 31%, status post AICD, advanced COPD, chronic atelectasis of right middle lobe status post bronchoscopy, longstanding calcific subcarinal and bilateral hilar adenopathy, severe peripheral vascular disease, GRACIA, on CPAP, CKD stage II-III, diabetes mellitus, bilateral BKA amputee,Recent hospitalization on 07/28/2020 for BLAINE requiring dialysis catheter placement, history of COVID-19 on 07/17 admitted since 09/07 after being sent over from [facility] [place] due to findings of a rectal abscess found on daily shift change. Also found to have Acute hypoxic respiratory failure at the tome with findings of bilateral pleural effusions, pulmonary edema. # Rectal abscess On 09/07, he was noted to have a focal collection in the perineum measuring 8.7 x 2.8 cm. Abscess could not be confirmed without IV contrast. Patient was evaluated by general surgery, noted to have right-sided perineal induration and fullness, he had previously undergone an I&D in the ER after which the wound was packed. It was recommended to continue broad-spectrum antibiotics. He is currently on treatment with cefepime and Flagyl Upon discharge transition to po levaquin and Augmentin Was previously on Zosyn vancomycin until 09/11 1 specimen from I&D in the ER shows E. coli and Proteus, fairly susceptible isolates. Blood culture is negative to date. #Hypoxic respiratory failure as noted on admission, patient was on room air up until 1221, required supplementation via nasal cannula 1221 overnight, titrated down to room air again this morning. CT of the chest without contrast on 1215 showed diffuse airspace infiltrate throughout the right lower lobe and atelectasis of the right lower lobe the latter is not new compared to previously, this has been attributed to compression from mediastinal lymph node in the past. There are bilateral pleural effusions right greater than left. This does appear to be an increase compared to CAT scan from 07/26/2020. He has been on empiric antibiotic coverage as above to appropriately cover for hospital-acquired pneumonia, completed 7 days. Oxygen requirement has been stable. Urine bacterial antigen negative He did receive Solu-Medrol 40 mg IV every 8 hours 09/07 to 09/10 due to additional concern for COPD exacerbation.Now off steroids since 09/13 continue duoneb and pulmicort inhalation #Acute on chronic CHF : upon admission he was also diuresed with IV Lasix and metolazone 10 mg--> transitioned to IV Lasix only. Echocardiogram was performed on 1216 which showed diffuse hypokinesia of the left ventricular ejection fraction of 25 to 30% and mildly dilated LV cavity. Appreciate cardiology recommendation for management He has declined ICD Stress test was attempted but could not be completed as patient did not tolerate. Currently off diuretics as euvolemic, rising cr. # BLAINE : May be 2/2 cardiorenal syndrome vs diuresis cr stable range at 2.9, urine output 850 cc diuretics on hold for now gentle IVF 1/2 NS @ 50 cc/hr # persisting leukocytosis : Effusion improving on serial x rays, less likely empyema, afberile Rectal wound s/p I&D, healing well stopped steroids as may be 2/2 margination #AMS CT head without acute abnormalities, chronic ischemic changes noted mentation fluctuates during the day, likely to be hospial delirium vs underlying vascular dementia carotid doppler 09/10 without significant stenosis # h/o CAD and PAD: continue Asa, plavix, statin, Coreg 3.125 BID dispo: d/c to NH dvt ppx Heparin Plan for today: continue to hold diuretics, monitor cr, encourage po intake, hypernatremia, changed fluids, anticipate discharge in the next 2448 hrs Attestations Medical Necessity Statement*: Hypernatremia, change in fluid, closely monitor creatinine, anticipate discharge in the next 24 to 48 hours if continues to improve. Coding Level of Care Code Acute Farm Supervisor for [facility] Fwd Diagnoses Acute respiratory failure with hypoxia J96.01 CAD (coronary artery disease) I25.10 Rectal abscess K61.1 Acute hyperkalemia E87.5 Acute on chronic renal failure N17.9; N18.9 COVID-19 U07.1 Chronic systolic CHF (congestive heart failure) I50.22 S/P bilateral BKA (below knee amputation) Z89.512; Z89.511 Type 2 diabetes mellitus E11.22; N18.4; Z79.4 Chronic kidney disease stage: stage 4 (severe) Diabetes mellitus complication detail: with chronic kidney disease Diabetes mellitus complication status: with kidney complications Diabetes mellitus jail insulin use: with jail use Peripheral vascular disease I73.9 Hypertension I10 CKD stage 3 secondary to diabetes E11.22; N18.3 COPD (chronic obstructive pulmonary disease) J44.9 Acute on chronic anemia D64.9 Acidosis E87.2 Thrombocytosis D47.3 AMS (altered mental status) R41.82
[2020-09-14] MEDS: cefepime 2,000 MG in sodium chloride 0.9% (plus) 50 ML 100 MG IV (18:54)
[2020-09-14 21:07] LABS: Glucose Point of Care 43 mg/dL (70-110)
[2020-09-14] MEDS: atorvastatin 40 mg Tablet 80 MG PO (21:41)
[2020-09-15] VITALS (15 sets, daily range): BP systolic 96–123; BP diastolic 59–74; PULSE 60–106; RESP 16–20; TEMP 36.1–36.9; O2SAT 94–100
[2020-09-15] MEDS: sodium chlor 0.9% + KCl 40 mEq 40 MEQ/1,000 ML BAG 75 MEQ IV (04:11)
[2020-09-15] MEDS: pantoprazole DR 40 mg Tablet PO ×2 (06:16→18:15)
[2020-09-15] MEDS: sucralfate 1 gm Tablet PO ×2 (06:16→18:15)
[2020-09-15 06:40] LABS: Glucose Point of Care 123 mg/dL (70-110)
[2020-09-15] MEDS: budesonide 0.5 mg/2 mL Neb INHALATION ×2 (07:50→20:17)
[2020-09-15] MEDS: ipratropium-albuterol 3 mL Neb INHALATION ×4 (07:50→20:17)
[2020-09-15] MEDS: polyethylene glycol 3350 Pkt 17 gm PO (08:35)
[2020-09-15] MEDS: heparin 5,000 unit/mL INJ 1 mL 5000 UNIT SUBCUT ×2 (08:35→21:16)
[2020-09-15] MEDS: citalopram 20 mg Tablet PO (08:36)
[2020-09-15] MEDS: metroNIDAZOLE 500 MG Tablet PO ×3 (08:36→21:16)
[2020-09-15] MEDS: tamsulosin 0.4 mg Capsule PO (08:36)
[2020-09-15] MEDS: ferrous sulfate EC 325 mg Tablet PO ×2 (08:36→18:15)
[2020-09-15] MEDS: aspirin 81 mg EC Tablet PO (08:36)
[2020-09-15] MEDS: potassium chloride ER 20 mEq Tablet 40 MEQ PO (08:36)
[2020-09-15] MEDS: buPROPion SR (12 HR) 150 mg Tablet PO ×2 (08:36→21:16)
[2020-09-15] MEDS: clopidogrel 75 mg Tablet PO (08:36)
[2020-09-15] MEDS: carvedilol 3.125 mg Tablet PO ×2 (08:37→21:16)
[2020-09-15 11:10] LABS: Glucose Point of Care 313 mg/dL (70-110)
--- NOTE | 2020-09-15 11:11 | P.PN_ITS ---
Subjective Subjective: Interval history: Patient is feeling well. He denies compliants of chest pain, shortness of breath or palpitations. He is oriented only to person. Vitals/I&O/Wt Last Vital Signs Temp 97.5 F L 09/15/20 07:16 Pulse 95 09/15/20 07:56 Resp 17 09/15/20 07:50 BP 121/74 09/15/20 07:16 Pulse Ox 95 09/15/20 07:50 09/14/20 09/15/20 09/15/20 22:59 06:59 14:59 Intake Total 1419.167 / 1779.167 360 / 360 Balance 1419.167 / 1779.167 360 / 360 Physical Exam Narrative: EXAM NARRATIVE: Const COMMON NORMALS: no acute distress, average body habitus, alert and well nourished GENERAL APPEARANCE: cooperative, comfortable, well kempt and well developed ORIENTATION/CONSCIOUSNESS: Yes oriented to person (Self) HENMT COMMON NORMALS: normocephalic, atraumatic, hearing grossly normal bilaterally, external ears normal HEAD & SCALP: normocephalic and atraumatic FACE & SINUS: face symmetric NOSE: Normal external nose present EXTERNAL EAR: Yes external ears normal Eye COMMON NORMALS: Equal, round and reactive pupils present, EOMs intact bilaterally and conjunctivae normal ALIGNMENT: Yes alignment normal CONJUNCTIVA: Yes conjunctivae normal SCLERA: sclerae normal PUPIL: Yes Equal, round and reactive pupils present Neck/C-Spine COMMON NORMALS: no lymphadenopathy, supple, no JVD and Thyroid normal; negative for No carotid bruits Chest COMMONS NORMALS: normal inspection of the chest CHEST: Yes Symmetrical chest wall rise and No tenderness Resp COMMON NORMALS: normal respiratory effort, No use of accessory muscles, clear to auscultation bilaterally EFFORT & INSPECTION: Yes able to speak in complete sentences, No tachypneic and No audible wheezes AUSCULTATION: clear to auscultation bilaterally, no crackles, no rales, no rhonchi and no wheezes Cardio COMMON NORMALS: no JVD, regular rate, regular rhythm, S1 normal heart sound present, S2 normal heart sound present and Peripheral pulses 2+ throughout; negative for No gallops present (Cardio) and negative for No clicks present (Cardio) JUGULAR VENOUS DISTENTION: no JVD PALPATION: normal PMI, no heave, no palpable S3, no palpable S4 and no thrill RATE: regular rate, tachycardia+ RHYTHM: regular rhythm HEART SOUNDS: S1 normal heart sound present, S2 normal heart sound present,, no gallops and no murmurs PERIPHERAL PULSES: Peripheral pulses 2+ throughout GI COMMON NORMALS: Normal to inspection, nondistended, normoactive bowel sounds present, Soft to palpation, non-tender PALPATION: Yes Soft to palpation and Yes Extremity NARRATIVE EXTREMITY EXAM: Bilateral below-knee amputation, no edema in stump Neuro COMMON NORMALS: no focal motor deficits SENSORIUM/ORIENTATION: Yes alert and Yes oriented to person (Self) CRANIAL NERVES: Yes CN normal except as noted Urinary Catheter Management^: Mejia: Cath Placed During This Visit: yes, but has since been removed by the nurse Reason for Continuing Indwelling Catheter: Decision to DC Catheter Urinary Catheter Date of Insertion: 09/08/20 Urinary Catheter Time of Insertion: 09:30 Date Urinary Catheter Removed: 09/13/20 Time Urinary Catheter Discontinued: 15:20 Data : 09/16/20 04:45 09/16/20 04:45 A&P Assessment and plan (1) Congestive heart failure: ACC/AHA stage C, NYHA class III , 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 -On Coreg 3.125 twice daily. -May try to add low-dose Isordil and hydralazine if blood pressure allows. DELVIS/ARB/ARNI or aldactone may not be an option with his CKD. Creatinine is 2.1 today and has improved from yesterday Patient is DNR and DNI and explicitly states that he does not want ICD. Medical management for now Status: Acute Qualifiers: Heart failure chronicity: acute on chronic Heart failure type: combined systolic and diastolic Qualified Code(s): I50.43 - Acute on chronic combined systolic (congestive) and diastolic (congestive) heart failure (2) Coronary artery disease: No CP. Status: Chronic Qualifiers: Associated angina: without angina Coronary Disease-Associated Artery/Lesion type: [place] artery [place] vs. transplanted heart: [place] heart Qualified Code(s): I25.10 - Atherosclerotic heart disease of [place] coronary artery without angina pectoris (3) Type 2 diabetes mellitus: Poorly controlled diabetes mellitus Status: Chronic Qualifiers: Chronic kidney disease stage: stage 4 (severe) Diabetes mellitus complication detail: with chronic kidney disease Diabetes mellitus complication status: with kidney complications Diabetes mellitus termite helper insulin use: with custodial use Qualified Code(s): E11.22 - Type 2 diabetes mellitus with diabetic chronic kidney disease; N18.4 - Chronic kidney disease, stage 4 (sev ere); Z79.4 - intermodal dispatcher (current) use of insulin (4) Nicotine dependence, cigarettes, with other nicotine-induced disorders: Status: Chronic (5) Perineal abscess: Status: Resolved (6) CKD (chronic kidney disease) stage 4, GFR 15-29 ml/min: Status: Acute Additional A&P Information Intermittent confusion: Normal CT head from few days back. Repeat CT head has been ordered. Likely dementia related Hypernatremia: resolved Nonsustained ventricular tachycardia: Continue Coreg, keep potassium more than 4 and magnesium more than 2. Tachycardia: Continue to monitor closely on telemetry. Elevated troponin in setting of decompensated congestive heart failure and chronic kidney disease Normocytic anemia (iron deficiency and anemia of chronic disease) Thrombocytosis Hypokalemia: replaced Attestations Medical Necessity Statement*: Care expected to cross 2 midnights. Coding Level of Care Code Acute Heel Emery Buffer for Pepe Mcfarland Diagnoses Congestive heart failure I50.43 Heart failure chronicity: acute on chronic Heart failure type: combined systolic and diastolic Coronary artery disease I25.10 Associated angina: without angina Coronary Disease-Associated Artery/Lesion type: [place] artery [place] vs. transplanted heart: [place] heart Type 2 diabetes mellitus E11.22; N18.4; Z79.4 Chronic kidney disease stage: stage 4 (severe) Diabetes mellitus complication detail: with chronic kidney disease Diabetes mellitus complication status: with kidney complications Diabetes mellitus termite helper insulin use: with custodial use Nicotine dependence, cigarettes, with other nicotine-induced disorders F17.218 Perineal abscess L02.215 CKD (chronic kidney disease) stage 4, GFR 15-29 ml/min N18.4
[2020-09-15 12:18] LABS: Basophils # 0.1 10^3/uL (0.0-0.1); Basophils % 0.2 %; Eosinophils # 0.2 10^3/uL (0.0-0.8); Eosinophils % 0.7 %; Hematocrit 32.3 % (42.0-52.0); Hemoglobin 9.6 g/dL (11.7-16.6); Lymphocytes # 1.8 10^3/uL (0.8-4.8); Mean Corpuscular HGB Conc 29.7 g/dL (30.0-36.0); Mean Corpuscular Hemoglobin 27.5 pg (28.0-34.0); Mean Corpuscular Volume 92.6 fL (80-94); Mean Platelet Volume 9.6 fL (7.4-10.4); Monocytes # 0.9 10^3/uL (0.2-0.9); Monocytes % 3.6 %; Neutrophils # 22.16 10^3/uL (1.8-7.7); Neutrophils % 87.2 %; Nucleated Red Blood Cells % 0 %; Platelet Count 463 10^3/cmm (130-400); Red Blood Count 3.49 10^6/uL (4.1-5.3); Red Cell Distribution Width 16.1 % (12.1-15.1); White Blood Count 25.4 10^3/uL (4.0-10.0)
[2020-09-15 12:30] LABS: Alanine Aminotransferase 12 U/L (0-41); Albumin Level 2.7 g/dL (3.5-5.2); Alkaline Phosphatase 99 IU/L (40-130); Anion Gap 11.5 (5-19); Aspartate Amino Transferase 12 U/L (0-40); Blood Urea Nitrogen 58 mg/dL (8-23); Calcium 8.6 mg/dL (8.5-10.5); Carbon Dioxide 24 mmol/L (22-29); Chloride 110 mmol/L (98-107); Glucose 354 mg/dL (65-115); Magnesium 2.1 mg/dL (1.7-2.3); Osmolality Calculated 320 mOsm/kg (285-295); Potassium 5.5 mmol/L (3.5-5.1); Sodium 140 mmol/L (136-145); Total Bilirubin 0.3 mg/dL (0.15-1.2); Total Protein 5.7 g/dL (6.6-8.7)
[2020-09-15] MEDS: magnesium lactate 84 mg Tablet PO ×2 (12:37→18:15)
--- NOTE | 2020-09-15 17:22 | PM.PN ---
Subjective Subjective: Interval history: Patient was examined this morning, he is alert to person, not to place, not to time, he has no particular complaints, afebrile overnight, normotensive, Vitals/I&O/Wt Last Vital Signs Temp 97.0 F L 09/15/20 12:00 Pulse 74 09/15/20 16:00 Resp 17 09/15/20 15:53 BP 102/59 09/15/20 12:00 Pulse Ox 97 09/15/20 15:53 09/15/20 09/15/20 09/15/20 06:59 14:59 22:59 Intake Total 600 / 600 Balance 600 / 600 Physical Exam Const: COMMON NORMALS: no acute distress GENERAL APPEARANCE: cooperative and comfortable ORIENTATION/CONSCIOUSNESS: Yes awake and Yes oriented to person; not oriented to place and not oriented to time HENMT: COMMON NORMALS: normocephalic HEAD & SCALP: normocephalic Eye: COMMON NORMALS: Equal, round and reactive pupils present and EOMs intact bilaterally GENERAL EYE: appearance normal, both eyes and all related structures PUPIL: Yes Equal, round and reactive pupils present Neck/C-Spine: COMMON NORMALS: no JVD and Thyroid normal THYROID: Thyroid normal Lymph: LYMPHATIC: no lymphadenopathy noted Resp: COMMON NORMALS: normal respiratory effort, No retractions, No use of accessory muscles and clear to auscultation bilaterally AUSCULTATION: clear to auscultation bilaterally Cardio: COMMON NORMALS: no JVD, regular rate, regular rhythm, S1 normal heart sound present and S2 normal heart sound present RATE: regular rate RHYTHM: regular rhythm HEART SOUNDS: S1 normal heart sound present and S2 normal heart sound present GI: COMMON NORMALS: Normal to inspection, nondistended, normoactive bowel sounds present, Soft to palpation, non-tender, No hepatosplenomegaly present, no masses and no bruits PALPATION: Yes Soft to palpation and Yes No hepatosplenomegaly present Extremity: COMMON NORMALS: capillary refill normal, no clubbing, cyanosis or edema, no calf tenderness and no pedal edema NARRATIVE EXTREMITY EXAM: Bilateral below-knee amputations Neuro: COMMON NORMALS: CN's II-XII intact bilaterally, moves all extremities and no focal motor deficits SENSORIUM/ORIENTATION: Yes oriented to person, No oriented to place and No oriented to time Psych: COMMON NORMALS: mental status grossly normal and Normal thought process present THOUGHT PROCESS: Normal thought process present Urinary Catheter Management^: Mejia: Cath Placed During This Visit: yes, but has since been removed by the nurse Reason for Continuing Indwelling Catheter: Decision to DC Catheter Urinary Catheter Date of Insertion: 09/08/20 Urinary Catheter Time of Insertion: 09:30 Date Urinary Catheter Removed: 09/13/20 Time Urinary Catheter Discontinued: 15:20 Data : 09/15/20 11:55 09/15/20 11:55 Micro: Microbiology 09/10/20 09:23 Blood Culture - Final Blood NO GROWTH AFTER 5 DAYS 09/10/20 09:18 Blood Culture - Final Blood NO GROWTH AFTER 5 DAYS A&P Assessment and plan (1) Acute respiratory failure with hypoxia: Status: Acute (2) CAD (coronary artery disease): Status: Acute (3) Rectal abscess: Status: Acute (4) Acute hyperkalemia: Status: Acute (5) Acute on chronic renal failure: Status: Acute (6) COVID-19: Status: Acute (7) Chronic systolic CHF (congestive heart failure): Status: Acute (8) S/P bilateral BKA (below knee amputation): -Secondary to severe peripheral vascular disease, vasculopathy, diabetes Status: Chronic (9) Type 2 diabetes mellitus: -Continue sliding scale, Lantus 24 units daily Status: Chronic Qualifiers: Chronic kidney disease stage: stage 4 (severe) Diabetes mellitus complication detail: with chronic kidney disease Diabetes mellitus complication status: with kidney complications Diabetes mellitus [facility] insulin use: with rn long term care use Qualified Code(s): E11.22 - Type 2 diabetes mellitus with diabetic chronic kidney disease; N18.4 - Chronic kidney disease, stage 4 (severe); Z79.4 - 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 of insulin (10) Peripheral vascular disease: Aspirin, statin, Plavix Status: Chronic (11) Hypertension: Status: Chronic (12) CKD stage 3 secondary to diabetes: Status: Chronic (13) COPD (chronic obstructive pulmonary disease): Status: Chronic (14) Acute on chronic anemia: Status: Acute (15) Acidosis: Resolved Status: Acute (16) Thrombocytosis: -Likely secondary to infection, chronic hypoxia -Peripheral smear unremarkable Status: Acute (17) AMS (altered mental status): Status: Acute Additional A&P Information Tashi Cole is a 64 year old male with a past medical history of systolic and diastolic heart failure, EF 31%, status post AICD, advanced COPD, chronic atelectasis of right middle lobe status post bronchoscopy, longstanding calcific subcarinal and bilateral hilar adenopathy, severe peripheral vascular disease, GRACIA, on CPAP, CKD stage II-III, diabetes mellitus, bilateral BKA amputee,Recent hospitalization on 07/28/2020 for BLAINE requiring dialysis catheter placement, history of COVID-19 on 07/17 admitted since 09/07 [place] [facility] [place] of a rectal abscess found on daily shift change. Also found to have Acute hypoxic respiratory failure at the tome with findings of bilateral pleural effusions, pulmonary edema. #Persistent leukocytosis, white blood cell count 25.4, left shift, afebrile, no abdominal pain, no diarrhea -Will obtain stool studies -will obtain blood culure, urine culture -Clinically monitor for the next 24 hours -Likely secondary to prednisone # Rectal abscess On 09/07, he was noted to have a focal collection in the perineum measuring 8.7 x 2.8 cm. Abscess could not be confirmed without IV contrast. Patient was evaluated by general surgery, noted to have right-sided perineal induration and fullness, he had previously undergone an I&D in the ER after which the wound was packed. It was recommended to continue broad-spectrum antibiotics. He is currently on treatment with cefepime and Flagyl Upon discharge transition to po levaquin and Augmentin Was previously on Zosyn vancomycin until 09/11 1 specimen from I&D in the ER shows E. coli and Proteus, fairly susceptible isolates. Blood culture is negative to date. #Hypoxic respiratory failure as noted on admission, patient was on room air up until 1221, required supplementation via nasal cannula 1221 overnight, titrated down to room air again this morning. CT of the chest without contrast on 1216 showed diffuse airspace infiltrate throughout the right lower lobe and atelectasis of the right lower lobe the latter is not new compared to previously, this has been attributed to compression from mediastinal lymph node in the past. There are bilateral pleural effusions right greater than left. This does appear to be an increase compared to CAT scan from 07/26/2020. He has been on empiric antibiotic coverage as above to appropriately cover for hospital-acquired pneumonia, completed 7 days. Oxygen requirement has been stable. Urine bacterial antigen negative He did receive Solu-Medrol 40 mg IV every 8 hours 09/07 to 09/10 due to additional concern for COPD exacerbation.Now off steroids since 09/13 continue duoneb and pulmicort inhalation #Acute on chronic CHF : upon admission he was also diuresed with IV Lasix and metolazone 10 mg--> transitioned to IV Lasix only. Echocardiogram was performed on 1216 which showed diffuse hypokinesia of the left ventricular ejection fraction of 25 to 30% and mildly dilated LV cavity. Appreciate cardiology recommendation for management He has declined ICD Stress test was attempted but could not be completed as patient did not tolerate. Currently off diuretics as euvolemic # BLAINE : May be 2/2 cardiorenal syndrome vs diuresis cr stable range at 2.1, urine output 450 cc diuretics on hold for now Stop IV fluids #AMS CT head without acute abnormalities, chronic ischemic changes noted mentation fluctuates during the day, likely to be hospial delirium vs underlying vascular dementia carotid doppler 09/10 without significant stenosis # h/o CAD and PAD: continue Asa, plavix, statin, Coreg 3.125 BID dispo: d/c to [place] dvt ppx Heparin Plan for today: continue to hold diuretics, stop IV fluids, monitor for fevers, hopefully discharge the next 24 hours Attestations Medical Necessity Statement*: Patient requires hospitalization for BLAINE, CHF, altered mental status Coding Level of Care Code Acute Window Unit 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 [facility] Diagnoses Acute respiratory failure with hypoxia J96.01 CAD (coronary artery disease) I25.10 Rectal abscess K61.1 Acute hyperkalemia E87.5 Acute on chronic renal failure N17.9; N18.9 COVID-19 U07.1 Chronic systolic CHF (congestive heart failure) I50.22 S/P bilateral BKA (below knee amputation) Z89.512; Z89.511 Type 2 diabetes mellitus E11.22; N18.4; Z79.4 Chronic kidney disease stage: stage 4 (severe) Diabetes mellitus complication detail: with chronic kidney disease Diabetes mellitus complication status: with kidney complications Diabetes mellitus rn long term care insulin use: with rn long term care use Peripheral vascular disease I73.9 Hypertension I10 CKD stage 3 secondary to diabetes E11.22; N18.3 COPD (chronic obstructive pulmonary disease) J44.9 Acute on chronic anemia D64.9 Acidosis E87.2 Thrombocytosis D47.3 AMS (altered mental status) R41.82
[2020-09-15 17:31] LABS: Glucose Point of Care 262 mg/dL (70-110)
[2020-09-15] MEDS: cefepime 2,000 MG in sodium chloride 0.9% (plus) 50 ML 100 MG IV (18:16)
[2020-09-15] MEDS: atorvastatin 40 mg Tablet 80 MG PO (21:15)
[2020-09-15 21:46] LABS: Glucose Point of Care 122 mg/dL (70-110)
[2020-09-16] VITALS (15 sets, daily range): BP systolic 93–116; BP diastolic 46–77; PULSE 75–97; RESP 16–20; TEMP 35.9–37; O2SAT 75–98
--- NOTE | 2020-09-16 | PC.NURSE ---
Patient voided enough to soak entire brief.
[2020-09-16] MEDS: ipratropium-albuterol 3 mL Neb INHALATION ×5 (00:03→19:39)
[2020-09-16 05:02] LABS: Basophils # 0.1 10^3/uL (0.0-0.1); Basophils % 0.4 %; Eosinophils # 0.4 10^3/uL (0.0-0.8); Eosinophils % 1.5 %; Hematocrit 36.4 % (42.0-52.0); Hemoglobin 10.7 g/dL (11.7-16.6); Lymphocytes # 2.2 10^3/uL (0.8-4.8); Lymphocytes % 9.4 %; Mean Corpuscular HGB Conc 29.4 g/dL (30.0-36.0); Mean Corpuscular Hemoglobin 27.8 pg (28.0-34.0); Mean Corpuscular Volume 94.5 fL (80-94); Mean Platelet Volume 9.7 fL (7.4-10.4); Monocytes # 1.2 10^3/uL (0.2-0.9); Monocytes % 5.2 %; Neutrophils # 19.32 10^3/uL (1.8-7.7); Neutrophils % 81.4 %; Nucleated Red Blood Cells % 0 %; Platelet Count 520 10^3/cmm (130-400); Red Blood Count 3.85 10^6/uL (4.1-5.3); Red Cell Distribution Width 16.5 % (12.1-15.1); White Blood Count 23.7 10^3/uL (4.0-10.0)
[2020-09-16] MEDS: D5-NS 0.45% + KCL 20 mEq 20 MEQ/1,000 ML BAG 30 MEQ (05:22)
[2020-09-16] MEDS: dextrose 5 % 500 ML 100 ML IV (05:23)
[2020-09-16] MEDS: pantoprazole DR 40 mg Tablet PO ×2 (05:25→17:45)
[2020-09-16 05:33] LABS: Lactate (Lactic Acid level) 2.1 mmol/L (0.5-2.2)
[2020-09-16 05:34] LABS: Alanine Aminotransferase 12 U/L (0-41); Albumin Level 3.4 g/dL (3.5-5.2); Alkaline Phosphatase 119 IU/L (40-130); Anion Gap 15.6 (5-19); Aspartate Amino Transferase 13 U/L (0-40); Blood Urea Nitrogen 52 mg/dL (8-23); Calcium 9.7 mg/dL (8.5-10.5); Carbon Dioxide 25 mmol/L (22-29); Chloride 111 mmol/L (98-107); Globulin 3.2 g/dL (1.3-4.6); Glomerular Filtration Rate 27.4 mL/min (90-130); Glucose 94 mg/dL (65-115); Osmolality Calculated 316 mOsm/kg (285-295); Potassium 5.6 mmol/L (3.5-5.1); Sodium 146 mmol/L (136-145); Total Bilirubin 0.3 mg/dL (0.15-1.2); Total Protein 6.6 g/dL (6.6-8.7)
[2020-09-16 05:46] LABS: NT Pro B Type Natriuretic Pept 7577 pg/mL (0-125); Procalcitonin 0.12 ng/mL (0-0.5)
[2020-09-16 05:51] LABS: Glucose Point of Care 54 mg/dL (70-110)
[2020-09-16 05:51] LABS: Glucose Point of Care 78 mg/dL (70-110)
[2020-09-16 05:51] LABS: Glucose Point of Care 31 mg/dL (70-110)
[2020-09-16 05:51] LABS: Glucose Point of Care 45 mg/dL (70-110)
[2020-09-16 05:51] LABS: Glucose Point of Care 195 mg/dL (70-110)
[2020-09-16 05:51] LABS: Glucose Point of Care 31 mg/dL (70-110)
[2020-09-16 05:51] LABS: Glucose Point of Care 35 mg/dL (70-110)
[2020-09-16 05:51] LABS: Glucose Point of Care 72 mg/dL (70-110)
[2020-09-16 05:57] LABS: C Reactive Protein 39.1 mg/L (0.0-4.9); Magnesium 2.3 mg/dL (1.7-2.3)
[2020-09-16] MEDS: sucralfate 1 gm Tablet PO ×2 (06:01→17:45)
--- NOTE | 2020-09-16 06:26 | PC.NURSE ---
Nurse was called to pt's room by respiratory. pt was noted to be diaphoretic and unresponsive. pt's blood sugar was checked and was 31. D50 was to be given but pt's IV was out. IM glucagon was order, none was on the floor. Pt would open eyes upon heavy stimulation. Sugar was placed in the pt's mouth. pt kept pushing sugar out with tongue, multiple nurses were working to obtain IV access. Dr in room. IM glucagon was given, pt began slowly arousing. pt was encourage to drink orange juice, pt's blood sugar was rechecked and only 35. pt given a second round of glucagon. small bore IV access was obtained and D5W was given at 100mL/hr. pt drank 3 orange juices with nursing staff around. larger bore IV access was obtained by US guided. blood sugar rechecked at 0545 noted to be 195
--- NOTE | 2020-09-16 07:00 | XRR_ITS ---
PROCEDURE INFORMATION: Exam: XR Chest, 1 View Exam date and time: 09/16/2020 6:12 AM Age: 64 years old Clinical indication: Shortness of breath; Additional info: SOB TECHNIQUE: Imaging protocol: XR of the chest Views: Frontal portable upright view of the chest. COMPARISON: CR XR chest 1V portable [id number] 09/12/2020 6:42 AM FINDINGS: Tubes, catheters and devices: EKG leads are present overlying the chest. Lungs: Right lower lung zone calcified pulmonary parenchymal granuloma. Increased right basilar pulmonary subsegmenta/partial l atelectasis. The pulmonary vasculature is normal. Pleural space: Stable minimal right pleural effusion. No pneumothorax. Heart/Mediastinum: The heart is normal in size and contour. Mediastinum: Stable. Bones/joints: Stable. XR/XR chest 1V portable [id number] IMPRESSION: 1. Increased right basilar pulmonary subsegmenta/partial l atelectasis. 2. Stable minimal right pleural effusion.
[2020-09-16] MEDS: budesonide 0.5 mg/2 mL Neb INHALATION ×2 (07:30→19:39)
[2020-09-16 07:31] LABS: Glucose Point of Care 337 mg/dL (70-110)
[2020-09-16 09:05] LABS: Glucose Point of Care 377 mg/dL (70-110)
[2020-09-16] MEDS: clopidogrel 75 mg Tablet PO (09:48)
[2020-09-16] MEDS: heparin 5,000 unit/mL INJ 1 mL 5000 UNIT SUBCUT ×2 (09:48→21:22)
[2020-09-16] MEDS: ferrous sulfate EC 325 mg Tablet PO ×2 (09:48→17:45)
[2020-09-16] MEDS: tamsulosin 0.4 mg Capsule PO (09:49)
[2020-09-16] MEDS: citalopram 20 mg Tablet PO (09:49)
[2020-09-16] MEDS: metroNIDAZOLE 500 MG Tablet PO ×3 (09:49→21:22)
[2020-09-16] MEDS: carvedilol 3.125 mg Tablet PO (09:49)
[2020-09-16] MEDS: buPROPion SR (12 HR) 150 mg Tablet PO ×2 (09:50→21:22)
[2020-09-16] MEDS: potassium chloride ER 20 mEq Tablet 40 MEQ PO (09:50)
[2020-09-16] MEDS: magnesium lactate 84 mg Tablet PO ×2 (09:50→17:45)
[2020-09-16] MEDS: aspirin 81 mg EC Tablet PO (09:50)
--- NOTE | 2020-09-16 10:39 | PM.PN ---
Subjective Subjective: Interval history: Patient is doing well. He denies any complaint of chest pain, shortness of breath or palpitations. He is oriented only to person. Vitals/I&O/Wt Last Vital Signs Temp 96.7 F L 09/16/20 07:35 Pulse 90 09/16/20 07:35 Resp 18 09/16/20 07:35 BP 103/58 09/16/20 07:35 Pulse Ox 96 09/16/20 07:30 09/15/20 09/16/20 09/16/20 22:59 06:59 14:59 Intake Total 480 / 1080 455 / 1535 Balance 480 / 1080 455 / 1535 Physical Exam Narrative: EXAM NARRATIVE: Const COMMON NORMALS: no acute distress and patient oriented x1 HENMT COMMON NORMALS: normocephalic HEAD & SCALP: normocephalic Neck/C-Spine COMMON NORMALS: no JVD Resp COMMON NORMALS: normal respiratory effort, No retractions, No use of accessory muscles and clear to auscultation bilaterally AUSCULTATION: clear to auscultation bilaterally Cardio COMMON NORMALS: no JVD, regular rate, regular rhythm, S1 normal heart sound present and S2 normal heart sound present RATE: regular rate RHYTHM: regular rhythm HEART SOUNDS: S1 normal heart sound present and S2 normal heart sound present GI COMMON NORMALS: Normal to inspection, nondistended, normoactive bowel sounds present, Soft to palpation, non-tender, No hepatosplenomegaly present, no masses and no bruits PALPATION: Yes Soft to palpation and Yes No hepatosplenomegaly present Extremity NARRATIVE EXTREMITY EXAM: Bilateral below-knee amputations Neuro COMMON NORMALS: patient oriented x1 Psych COMMON NORMALS: mental status grossly normal Urinary Catheter Management^: Mejia: Cath Placed During This Visit: yes, but has since been removed by the nurse Reason for Continuing Indwelling Catheter: Decision to DC Catheter Urinary Catheter Date of Insertion: 09/08/20 Urinary Catheter Time of Insertion: 09:30 Date Urinary Catheter Removed: 09/13/20 Time Urinary Catheter Discontinued: 15:20 Data : 09/17/20 04:09 09/17/20 04:09 Micro: Microbiology 09/10/20 09:23 Blood Culture - Final Blood NO GROWTH AFTER 5 DAYS 09/10/20 09:18 Blood Culture - Final Blood NO GROWTH AFTER 5 DAYS A&P Assessment and plan (1) CKD (chronic kidney disease) stage 4, GFR 15-29 ml/min: Status: Acute (2) Congestive heart failure: ACC/AHA stage C, NYHA class III , 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 -On Coreg 3.125 twice daily. -May try to add low-dose Isordil and hydralazine if blood pressure allows. DELVIS/ARB/ARNI or aldactone may not be an option with his CKD. Creatinine is 2.4 today. His Creatinine has remained in this range during the admission but compared to yesterday, there is mild worsening Patient is DNR and DNI and explicitly states that he does not want ICD. Medical management for now Status: Acute Qualifiers: Heart failure chronicity: acute on chronic Heart failure type: combined systolic and diastolic Qualified Code(s): I50.43 - Acute on chronic combined systolic (congestive) and diastolic (congestive) heart failure (3) Coronary artery disease: No CP. Status: Chronic Qualifiers: Associated angina: without angina Coronary Disease-Associated Artery/Lesion type: [place] artery [place] vs. transplanted heart: [place] heart Qualified Code(s): I25.10 - Atherosclerotic heart disease of [place] coronary artery without angina pectoris (4) Type 2 diabetes mellitus: Poorly controlled diabetes mellitus Status: Chronic Qualifiers: Chronic kidney disease stage: stage 4 (severe) Diabetes mellitus complication detail: with chronic kidney disease Diabetes mellitus complication status: with kidney complications Diabetes mellitus halfway insulin use: with marine oil terminal superintendent use Qualified Code(s): E11.22 - Type 2 diabetes mellitus with diabetic chronic kidney disease; N18.4 - Chronic kidney disease, stage 4 (severe); Z79.4 - superintendent terminal (current) use of insulin (5) Nicotine dependence, cigarettes, with other nicotine-induced disorders: Status: Chronic (6) Perineal abscess: Status: Resolved Additional A&P Information Intermittent confusion: Normal CT head from few days back. Repeat CT head has been ordered. Likely dementia related Hypernatremia: resolved Nonsustained ventricular tachycardia: Continue Coreg, keep potassium more than 4 and magnesium more than 2. Tachycardia: Continue to monitor closely on telemetry. Elevated troponin in setting of decompensated congestive heart failure and chronic kidney disease Normocytic anemia (iron deficiency and anemia of chronic disease) Thrombocytosis Hypokalemia: replaced Attestations Medical Necessity Statement*: Care expected to cross 2 midnights. Coding Level of Care Code Acute Social Welfare Administrator for [facility] Diagnoses Acute on chronic anemia D64.9 CKD (chronic kidney disease) stage 4, GFR 15-29 ml/min N18.4 Congestive heart failure I50.43 Heart failure chronicity: acute on chronic Heart failure type: combined systolic and diastolic Coronary artery disease I25.10 Associated angina: without angina Coronary Disease-Associated Artery/Lesion type: [place] artery [place] vs. transplanted heart: [place] heart Type 2 diabetes mellitus E11.22; N18.4; Z79.4 Chronic kidney disease stage: stage 4 (severe) Diabetes mellitus complication detail: with chronic kidney disease Diabetes mellitus complication status: with kidney complications Diabetes mellitus marine oil terminal superintendent insulin use: with halfway use Nicotine dependence, cigarettes, with other nicotine-induced disorders F17.218 Perineal abscess L02.215
--- NOTE | 2020-09-16 10:48 | DCPLANNER ---
IMM completed 09/16/2020 @ 0928. Copy of rights given to pt.
[2020-09-16 11:44] LABS: Glucose Point of Care 451 mg/dL (70-110)
--- NOTE | 2020-09-16 13:53 | PM.DCS ---
Discharge Providers Date of Admission: 09/07/20 14:00 Date of Discharge: September 16, 2020 Attending Provider at Admission: Jasbir West MD Attending Provider at Discharge: Jasbir West MD Primary Care Provider: Hiram Black DO Diagnoses at Discharge Discharge Diagnosis (1) Congestive heart failure: Status: Acute Qualifiers: Heart failure chronicity: acute on chronic Heart failure type: combined systolic and diastolic Qualified Code(s): I50.43 - Acute on chronic combined systolic (congestive) and diastolic (congestive) heart failure (2) Coronary artery disease: Status: Chronic Qualifiers: Associated angina: without angina Coronary Disease-Associated Artery/Lesion type: [place] artery [place] vs. 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: with retirement use Qualified Code(s): E11.22 - Type 2 diabetes mellitus with diabetic chronic kidney disease; N18.4 - Chronic kidney disease, stage 4 (severe); Z79.4 - 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 of insulin (4) Nicotine dependence, cigarettes, with other nicotine-induced disorders: Status: Chronic (5) Perineal abscess: Status: Resolved (6) CKD (chronic kidney disease) stage 4, GFR 15-29 ml/min: Status: Acute Reason for Visit Reason for Visit: PERINEUM LANCED Hospital Course Hospital Course Tashi Cole is a 64 year old male with a past medical history of systolic and diastolic heart failure, EF 31%, status post AICD, advanced COPD, chronic atelectasis of right middle lobe status post bronchoscopy, longstanding calcific subcarinal and bilateral hilar adenopathy, severe peripheral vascular disease, GRACIA, on CPAP, CKD stage II-III, diabetes mellitus, bilateral BKA amputee,Recent hospitalization on 07/28/2020 for BLAINE requiring dialysis catheter placement, history of COVID-19 on 07/17 admitted since 09/07 after [place] [facility] [place] of a rectal abscess and shortness of breath Patient was admitted at [facility], for acute hypoxic respiratory failure with hypoxia secondary to healthcare associated pneumonia, aspiration pneumonia/pneumonitis, CHF exacerbation, COPD. Patient was admitted to the intensive care unit, received broad-spectrum antibiotic therapy, diuresis, steroid therapy, as needed BiPAP. Patient clinically improved, moved to the general medical floors, saturating in the high 90s on room air, no significant planes of shortness of breath. Discharge on Augmentin for 7 remaining days. For patient's history of CAD, and CHF NYHA class III, mixed cardiomyopathy, EF 25 to 30% patient was managed with diuretic therapy, Coreg. Patient was DNR/DNI, do not want ICD placement. Preferred medical management. During his hospitalization he did develop episodes of BLAINE likely secondary to diuretics which were periodically held. On discharge patient will be discharged on 40 mg Lasix daily with potassium replacement. Patient will follow up with cardiology in 2 to 4 weeks. Patient had intermittent episodes of confusion, normal head CT, no hemodynamically significant ICA stenosis, likely secondary to dementia BLAINE, likely component of cardiorenal syndrome and diuresis, creatinine discharge 2.3 discharged on Lasix 40 mg daily History of CAD, discharged on aspirin, Plavix, statin, Coreg Rectal abscess, status post drainage in the ER, discharged on Augmentin Patient also had persistent leukocytosis throughout his hospital admission, white blood cell count has trended down, no diarrhea episodes, blood cultures and urine cultures remain unremarkable, currently no significant concern for parapneumonic effusion or empyema, inflammatory markers remain unremarkable, remains afebrile, likely secondary to steroid therapy Physical Exam Const: COMMON NORMALS: no acute distress and patient oriented x3 HENMT: COMMON NORMALS: normocephalic HEAD & SCALP: normocephalic Neck/C-Spine: COMMON NORMALS: no JVD Resp: COMMON NORMALS: normal respiratory effort, No retractions, No use of accessory muscles and clear to auscultation bilaterally AUSCULTATION: clear to auscultation bilaterally Cardio: COMMON NORMALS: no JVD, regular rate, regular rhythm, S1 normal heart sound present and S2 normal heart sound present RATE: regular rate RHYTHM: regular rhythm HEART SOUNDS: S1 normal heart sound present and S2 normal heart sound present GI: COMMON NORMALS: Normal to inspection, nondistended, normoactive bowel sounds present, Soft to palpation, non-tender, No hepatosplenomegaly present, no masses and no bruits PALPATION: Yes Soft to palpation and Yes No hepatosplenomegaly present Extremity: NARRATIVE EXTREMITY EXAM: Bilateral lower extremity below-knee amputations Neuro: COMMON NORMALS: patient oriented x3 Psych: COMMON NORMALS: mental status grossly normal Urinary Catheter Management^: Mejia: Cath Placed During This Visit: yes, but has since been removed by the nurse Reason for Continuing Indwelling Catheter: Decision to DC Catheter Urinary Catheter Date of Insertion: 09/08/20 Urinary Catheter Time of Insertion: 09:30 Date Urinary Catheter Removed: 09/13/20 Time Urinary Catheter Discontinued: 15:20 Discharge Data Data Completed and Pending: Completed Studies During Hospitalization Category Date Time Status CT abdomen pelvis wo con 63077 Urge nt Cat Scan 09/07/20 11:[address] chest wo con 7 1250 Urgent Cat Scan 09/07/20 18:[address] head wo con* 7 0450 Routine Cat Scan 09/10/20 07:[address] head wo con* 7 0450 Urgent Cat Scan 09/12/20 17:23 Completed XR chest 1V bernard ble 14800 QAM Exams 09/09/20 06:00 Completed XR chest 1V bernard ble [id number] Routine Exams 09/08/20 07:00 Completed XR chest 1V bernard ble 98560 Routine Exams 09/10/20 07:57 Completed XR chest 1V bernard ble 52012 Routine Exams 09/11/20 07:00 Completed XR chest 1V bernard ble 70515 Routine Exams 09/12/20 07:00 Completed XR chest 1V bernard ble 90521 Routine Exams 09/16/20 07:00 Completed XR chest 1V bernard ble 93692 Stat Exams 09/07/20 14:10 Completed CV carotid duplex BI* [id number] Routine Ultrasound 09/10/20 07:57 Completed CV echo complete* [id number] Routine Ultrasound 09/08/20 18:09 Completed Pending at discharge Category Date Time Status Sestamibi Stress Test Request Routi ne Exams 09/11/20 20:34 Stop Req Arterial Blood Ga s W/O Coox Stat Lab 09/07/20 15:20 Ordered C Reactive Protei n AM LABS Lab 09/17/20 04:00 Ordered C Reactive Protei n AM LABS Lab 09/18/20 04:00 Ordered Immunochemical Fe jack OCB Routine Lab 09/07/20 18:09 Uncollected Lactate (Lactic A ivan level) AM LABS Lab 09/17/20 04:00 Ordered Lactate (Lactic A ivan level) AM LABS Lab 09/18/20 04:00 Ordered MRSA by PCR Routi ne Lab 09/13/20 15:49 Received Magnesium AM LABS Lab 09/17/20 04:00 Ordered Magnesium AM LABS Lab 09/18/20 04:00 Ordered Miscellaneous Jeannette t Routine Lab 09/15/20 12:55 Received NT Pro B Type Tracey riuretic Pept QAM Lab 09/17/20 06:00 Ordered NT Pro B Type Tracey riuretic Pept QAM Lab 09/18/20 06:00 Ordered Procalcitonin AM LABS Lab 09/17/20 04:00 Ordered Procalcitonin AM LABS Lab 09/18/20 04:00 Ordered Sputum Culture an d Gram Stain Stat Lab 09/07/20 18:09 Uncollected Labs from last 24 hours 09/16/20 09/16/20 09/16/20 11:17 09:02 07:18 WBC RBC Hgb Hct MCV MCH MCHC RDW Plt Count MPV Neut % (Auto) Lymph % (Auto) [place] % (Auto) Eos % (Auto) Baso % (Auto) Neut # (Auto) Lymph # (Auto) [place] # (Auto) Eos # (Auto) Baso # (Auto) Nucleated RBC % (a uto) Nucleated RBCs # Sodium Potassium Chloride Carbon Dioxide Anion Gap BUN Creatinine GFR Calculation Glucose POC Glucose 451 H 377 H 337 H Calculated Osmolal ity Lactate Calcium Magnesium Total Bilirubin AST ALT Alkaline Phosphata se C-Reactive Protein NT-Pro-B Natriuret Pep Total Protein Albumin Globulin Procalcitonin Misc Test Referenc e 09/16/20 09/16/20 09/16/20 05:46 04:45 04:45 WBC RBC Hgb Hct MCV MCH MCHC RDW Plt Count MPV Neut % (Auto) Lymph % (Auto) [place] % (Auto) Eos % (Auto) Baso % (Auto) Neut # (Auto) Lymph # (Auto) [place] # (Auto) Eos # (Auto) Baso # (Auto) Nucleated RBC % (a uto) Nucleated RBCs # Sodium 146 H Potassium 5.6 H Chloride 111 H Carbon Dioxide 25 Anion Gap 15.6 BUN 52 H Creatinine 2.4 H GFR Calculation 27.4 L Glucose 94 POC Glucose 195 H 78 Calculated Osmolal ity 316 H Lactate Calcium 9.7 Magnesium Total Bilirubin 0.3 AST 13 ALT 12 Alkaline Phosphata se 119 C-Reactive Protein NT-Pro-B Natriuret Pep Total Protein 6.6 Albumin 3.4 L Globulin 3.2 Procalcitonin Misc Test Referenc e 09/16/20 09/16/20 09/16/20 04:45 04:45 04:45 WBC 23.7 H RBC 3.85 L Hgb 10.7 L Hct 36.4 L MCV 94.5 H MCH 27.8 L MCHC 29.4 L RDW 16.5 H Plt Count 520 H MPV 9.7 Neut % (Auto) 81.4 Lymph % (Auto) 9.4 [place] % (Auto) 5.2 Eos % (Auto) 1.5 Baso % (Auto) 0.4 Neut # (Auto) 19.32 H Lymph # (Auto) 2.2 [place] # (Auto) 1.2 H Eos # (Auto) 0.4 Baso # (Auto) 0.1 Nucleated RBC % (a uto) 0 Nucleated RBCs # 0.0 Sodium Potassium Chloride Carbon Dioxide Anion Gap BUN Creatinine GFR Calculation Glucose POC Glucose Calculated Osmolal ity Lactate 2.1 Calcium Magnesium 2.3 Total Bilirubin AST ALT Alkaline Phosphata se C-Reactive Protein 39.1 H NT-Pro-B Natriuret Pep 7577 H Total Protein Albumin Globulin Procalcitonin 0.12 Misc Test Referenc e 09/16/20 09/16/20 09/16/20 04:38 04:27 04:20 WBC RBC Hgb Hct MCV MCH MCHC RDW Plt Count MPV Neut % (Auto) Lymph % (Auto) [place] % (Auto) Eos % (Auto) Baso % (Auto) Neut # (Auto) Lymph # (Auto) [place] # (Auto) Eos # (Auto) Baso # (Auto) Nucleated RBC % (a uto) Nucleated RBCs # Sodium Potassium Chloride Carbon Dioxide Anion Gap BUN Creatinine GFR Calculation Glucose POC Glucose 72 45 L 54 L Calculated Osmolal ity Lactate Calcium Magnesium Total Bilirubin AST ALT Alkaline Phosphata se C-Reactive Protein NT-Pro-B Natriuret Pep Total Protein Albumin Globulin Procalcitonin Misc Test Referenc e 09/16/20 09/16/20 09/16/20 04:15 04:13 03:58 WBC RBC Hgb Hct MCV MCH MCHC RDW Plt Count MPV Neut % (Auto) Lymph % (Auto) [place] % (Auto) Eos % (Auto) Baso % (Auto) Neut # (Auto) Lymph # (Auto) [place] # (Auto) Eos # (Auto) Baso # (Auto) Nucleated RBC % (a uto) Nucleated RBCs # Sodium Potassium Chloride Carbon Dioxide Anion Gap BUN Creatinine GFR Calculation Glucose POC Glucose 31 L* 35 L* 31 L* Calculated Osmolal ity Lactate Calcium Magnesium Total Bilirubin AST ALT Alkaline Phosphata se C-Reactive Protein NT-Pro-B Natriuret Pep Total Protein Albumin Globulin Procalcitonin Misc Test Referenc e 09/15/20 09/15/20 09/15/20 21:37 16:29 12:55 WBC RBC Hgb Hct MCV MCH MCHC RDW Plt Count MPV Neut % (Auto) Lymph % (Auto) [place] % (Auto) Eos % (Auto) Baso % (Auto) Neut # (Auto) Lymph # (Auto) [place] # (Auto) Eos # (Auto) Baso # (Auto) Nucleated RBC % (a uto) Nucleated RBCs # Sodium Potassium Chloride Carbon Dioxide Anion Gap BUN Creatinine GFR Calculation Glucose POC Glucose 122 H 262 H Calculated Osmolal ity Lactate Calcium Magnesium Total Bilirubin AST ALT Alkaline Phosphata se C-Reactive Protein NT-Pro-B Natriuret Pep Total Protein Albumin Globulin Procalcitonin Misc Test Referenc e Pending Vitals: Last Vital Signs Temp 97.7 F 09/16/20 12:00 Pulse 97 09/16/20 12:00 Resp 18 09/16/20 12:00 BP 116/77 09/16/20 12:00 Pulse Ox 97 09/16/20 12:00 Discharge Plan Discharge Patient Disposition: Xfer SNF Condition: Stable Prescriptions: New clopidogrel 75 mg Tablet 75 mg PO DAILY 30 Days Qty: 30 RF: 0 potassium chloride [Klor-Con M20] 20 mEq Tablet,Er Particles/Crystals 20 meq PO DAILY 30 Days Qty: 30 RF: 0 amoxicillin-pot clavulanate [Augmentin] 875-125 mg tablet 1 tab PO BID 7 Days Qty: 14 RF: 0 sucralfate 1 gram Tablet 1 g PO BIDAC 30 Days Qty: 60 RF: 0 ferrous sulfate 325 mg (65 mg iron) Tablet,Delayed Release (Dr/Ec) 325 mg PO BIDWM 30 Days Qty: 30 RF: 0 furosemide [Lasix] 40 mg tablet 40 mg PO DAILY 30 Days Qty: 30 RF: 0 Continued albuterol sulfate 2.5 mg /3 mL (0.083 %) solution for nebulization 2.5 mg INHALATION Q4H PRN (Reason: Shortness Of Breath) RF: 0 ondansetron HCl [Zofran] 4 mg Tablet 4 mg PO Q4H PRN (Reason: Nausea) RF: 0 magnesium hydroxide [Milk of Magnesia] 400 mg/5 mL Suspension 30 ml PO DAILY PRN (Reason: CONSTIPATON) RF: 0 Mucinex DM 30-600 mg Tablet Extended Release 12 Hr 1 tab PO BID@08,20 RF: 0 Hair,Skin and Nails 1 mg iron-66.7 mcg-1,000 mcg Tablet 1 tab PO DAILY@08 RF: 0 citalopram 20 mg tablet 20 mg PO DAILY@08 RF: 0 pantoprazole 40 mg tablet,delayed release (DR/EC) 40 mg PO BID@06,18 RF: 0 polyethylene glycol 3350 [Miralax] 17 gram Powder In Packet 17 g PO DAILY@08 RF: 0 nicotine (polacrilex) 2 mg lozenge 2 mg BUCCAL Q1H PRN (Reason: nicotine cravings) Qty: 72 RF: 0 bupropion HCl [Wellbutrin SR] 150 mg Tablet Sustained-Release 12 Hr 150 mg PO Q12H RF: 0 acetaminophen 325 mg Tablet 650 mg PO Q4H PRN (Reason: Pain) Qty: 0 RF: 0 clopidogrel [Plavix] 75 mg Tablet 75 mg PO DAILY@08 RF: 0 aspirin 81 mg Tablet,Delayed Release (Dr/Ec) 81 mg PO DAILY@08 RF: 0 carvedilol 3.125 mg Tablet 3.125 mg PO BID@08,20 RF: 0 tamsulosin 0.4 mg Capsule 0.4 mg PO DAILY@08 RF: 0 bisacodyl 10 mg Suppository 10 mg MD DAILY PRN (Reason: CONSTIPATED) RF: 0 nitroglycerin 0.4 mg Tablet, Sublingual 0.4 mg SUBLINGUAL Q5M PRN (Reason: Chest Pain) RF: 0 budesonide 0.5 mg/2 mL suspension for nebulization 2 ml inhalation BID RF: 0 loratadine 10 mg Tablet 10 mg PO DAILY@08 RF: 0 insulin lispro [Humalog KwikPen Insulin] 100 unit/mL Insulin Pen See Rx Instructions .ROUTE .COMPLEX RF: 0 rosuvastatin [Crestor] 20 mg Tablet 20 mg PO DAILY@20 RF: 0 magnesium L-lactate [Magtab] 84 mg Tablet Extended Release 84 mg PO DAILY@08 RF: 0 ipratropium-albuterol 0.5 mg-3 mg(2.5 mg base)/3 mL Solution For Nebulization 3 ml INHALATION BID@09,18 PRN (Reason: Shortness Of Breath) RF: 0 TwoCal HN 0.08-2 gram-kcal/mL Liquid 1 ea PO BID@09,21 RF: 0 Glucagon (HCl) Emergency Kit 1 mg Recon Soln 1 mg SUBCUT Q20M PRN (Reason: BLOOD SUGAR) RF: 0 Discontinued Lantus Solostar U-100 Insulin 100 unit/mL (3 mL) Insulin Pen 24 unit SUBCUT DAILY@08 RF: 0 Humalog Willem KwikPen U-100 100 unit/mL Insulin Pen, Half-Unit 8 unit SUBCUT TID@07,12,17 RF: 0 Discharge Orders: Discharge Order (Routine); Ordered 09/16/20 Ordered By: Jasbir West Referrals: [facility] [Outside] Hiram Black DO [Primary Care Provider] - Discharge Diet: Cardiac Discharge Activity: Resume usual activity Activity Restrictions/Additional Instructions: -Patient had hypoglycemic episode the morning of 09/16/2020, -I have discontinued his home Lantus -Continue Humalog sliding scale Discharge Attestations Time Spent in Discharge Care*: less than 30 min Quality Metrics Clinical Quality Measures During this hospital stay, did patient experience: None Coding Level of Care Code Acute Log Driver for [facility] Fwd Exam Detailed Diagnoses Congestive heart failure I50.43 Heart failure chronicity: acute on chronic Heart failure type: combined systolic and diastolic Coronary artery disease I25.10 Associated angina: without angina Coronary Disease-Associated Artery/Lesion type: [place] artery [place] vs. 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
--- NOTE | 2020-09-16 16:48 | PM.PN ---
Subjective Subjective: Interval history: Patient was examined this morning, has no complaints, is feeling well, he is ready to go to the custodial, he did have an episode of hypoglycemia overnight in the 30s, he thinks that he did not eat dinner, currently no hypoglycemic episodes, blood sugars are improved Vitals/I&O/Wt Last Vital Signs Temp 98.6 F 09/16/20 15:46 Pulse 75 09/16/20 15:46 Resp 18 09/16/20 15:46 BP 93/57 09/16/20 15:46 Pulse Ox 98 09/16/20 15:46 09/16/20 09/16/20 09/16/20 06:59 14:59 22:59 Intake Total 455 / 1535 240 / 240 Balance 455 / 1535 240 / 240 Physical Exam Const: COMMON NORMALS: no acute distress and patient oriented x3 HENMT: COMMON NORMALS: normocephalic HEAD & SCALP: normocephalic Neck/C-Spine: COMMON NORMALS: no JVD Resp: COMMON NORMALS: normal respiratory effort, No retractions, No use of accessory muscles and clear to auscultation bilaterally AUSCULTATION: clear to auscultation bilaterally Cardio: COMMON NORMALS: no JVD, regular rate, regular rhythm, S1 normal heart sound present and S2 normal heart sound present RATE: regular rate RHYTHM: regular rhythm HEART SOUNDS: S1 normal heart sound present and S2 normal heart sound present GI: COMMON NORMALS: Normal to inspection, nondistended, normoactive bowel sounds present, Soft to palpation, non-tender, No hepatosplenomegaly present, no masses and no bruits PALPATION: Yes Soft to palpation and Yes No hepatosplenomegaly present Extremity: NARRATIVE EXTREMITY EXAM: Bilateral below-knee amputations Neuro: COMMON NORMALS: patient oriented x3 Psych: COMMON NORMALS: mental status grossly normal Urinary Catheter Management^: Mejia: Cath Placed During This Visit: yes, but has since been removed by the nurse Reason for Continuing Indwelling Catheter: Decision to DC Catheter Urinary Catheter Date of Insertion: 09/08/20 Urinary Catheter Time of Insertion: 09:30 Date Urinary Catheter Removed: 09/13/20 Time Urinary Catheter Discontinued: 15:20 Data : 09/16/20 04:45 09/16/20 04:45 Micro: Microbiology 09/16/20 14:10 Occult Blood (FIT) - Final Stool 09/10/20 09:23 Blood Culture - Final Blood NO GROWTH AFTER 5 DAYS 09/10/20 09:18 Blood Culture - Final Blood NO GROWTH AFTER 5 DAYS A&P Assessment and plan (1) Congestive heart failure: Status: Acute Qualifiers: Heart failure chronicity: acute on chronic Heart failure type: combined systolic and diastolic Qualified Code(s): I50.43 - Acute on chronic combined systolic (congestive) and diastolic (congestive) heart failure (2) Coronary artery disease: Status: Chronic Qualifiers: Associated angina: without angina Coronary Disease-Associated Artery/Lesion type: [place] artery [place] vs. transplanted heart: [place] heart Qualified Code(s): I25.10 - Atherosclerotic heart disease of [place] coronary artery without angina pectoris (3) Type 2 diabetes mellitus: -Continue sliding scale, Lantus 24 units daily Status: Chronic Qualifiers: Chronic kidney disease stage: stage 4 (severe) Diabetes mellitus complication detail: with chronic kidney disease Diabetes mellitus complication status: with kidney complications Diabetes mellitus long-term insulin use: with long-term use Qualified Code(s): E11.22 - Type 2 diabetes mellitus with diabetic chronic kidney disease; N18.4 - Chronic kidney disease, stage 4 (severe); Z79.4 - half-way (current) use of insulin (4) Nicotine dependence, cigarettes, with other nicotine-induced disorders: Status: Chronic (5) Perineal abscess: Status: Resolved (6) CKD (chronic kidney disease) stage 4, GFR 15-29 ml/min: Status: Acute Additional A&P Information Tashi Cole is a 64 year old male with a past medical history of systolic and diastolic heart failure, EF 31%, status post AICD, advanced COPD, chronic atelectasis of right middle lobe status post bronchoscopy, longstanding calcific subcarinal and bilateral hilar adenopathy, severe peripheral vascular disease, GRACIA, on CPAP, CKD stage II-III, diabetes mellitus, bilateral BKA amputee,Recent hospitalization on 07/28/2020 for BLAINE requiring dialysis catheter placement, history of COVID-19 on 07/17 admitted since 09/07 after being sent over from [facility] [place] due to findings of a rectal abscess found on daily shift change. Also found to have Acute hypoxic respiratory failure at the tome with findings of bilateral pleural effusions, pulmonary edema. #Persistent leukocytosis, white blood cell count 23.7, left shift, afebrile, no abdominal pain, no diarrhea -Will obtain stool studies -will obtain blood culure, urine culture -Clinically monitor for the next 24 hours -Likely secondary to prednisone # Rectal abscess On 09/07, he was noted to have a focal collection in the perineum measuring 8.7 x 2.8 cm. Abscess could not be confirmed without IV contrast. Patient was evaluated by general surgery, noted to have right-sided perineal induration and fullness, he had previously undergone an I&D in the ER after which the wound was packed. It was recommended to continue broad-spectrum antibiotics. He is currently on treatment with cefepime and Flagyl, continue Upon discharge transition to po levaquin and Augmentin Was previously on Zosyn vancomycin until 09/11 1 specimen from I&D in the ER shows E. coli and Proteus, fairly susceptible isolates. Blood culture is negative to date. #Hypoxic respiratory failure as noted on admission, patient was on room air up until 1221, required supplementation via nasal cannula 1221 overnight, titrated down to room air again this morning. CT of the chest without contrast on 1215 showed diffuse airspace infiltrate throughout the right lower lobe and atelectasis of the right lower lobe the latter is not new compared to previously, this has been attributed to compression from mediastinal lymph node in the past. There are bilateral pleural effusions right greater than left. This does appear to be an increase compared to CAT scan from 07/26/2020. He has been on empiric antibiotic coverage as above to appropriately cover for hospital-acquired pneumonia, completed 7 days. Oxygen requirement has been stable. Urine bacterial antigen negative He did receive Solu-Medrol 40 mg IV every 8 hours 09/07 to 09/10 due to additional concern for COPD exacerbation.Now off steroids since 09/13 continue duoneb and pulmicort inhalation #Acute on chronic CHF : upon admission he was also diuresed with IV Lasix and metolazone 10 mg--> transitioned to IV Lasix only. Echocardiogram was performed on 1216 which showed diffuse hypokinesia of the left ventricular ejection fraction of 25 to 30% and mildly dilated LV cavity. Appreciate cardiology recommendation for management He has declined ICD Stress test was attempted but could not be completed as patient did not tolerate. Currently off diuretics as euvolemic # BLAINE : May be 2/2 cardiorenal syndrome vs diuresis cr stable range at 2.4, urine output 450 cc diuretics on hold for now Stop IV fluids #AMS CT head without acute abnormalities, chronic ischemic changes noted mentation fluctuates during the day, likely to be hospial delirium vs underlying vascular dementia carotid doppler 09/10 without significant stenosis # h/o CAD and PAD: continue Asa, plavix, statin, Coreg 3.125 BID dispo: d/c to [place] dvt ppx Heparin Plan for today: continue to hold diuretics, stop IV fluids, monitor for fevers, hopefully discharge the next 24 hours Attestations Medical Necessity Statement*: Patient requires hospitalization for acute respiratory failure secondary to pneumonia, heart failure, rectal abscess Coding Level of Care Code Acute [place] [facility] Fwd Diagnoses Congestive heart failure I50.43 Heart failure chronicity: acute on chronic Heart failure type: combined systolic and diastolic Coronary artery disease I25.10 Associated angina: without angina Coronary Disease-Associated Artery/Lesion type: [place] artery [place] vs. 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
[2020-09-16 17:17] LABS: Glucose Point of Care 284 mg/dL (70-110)
[2020-09-16] MEDS: cefepime 2,000 MG in sodium chloride 0.9% (plus) 50 ML 100 MG IV (17:47)
[2020-09-16] MEDS: atorvastatin 40 mg Tablet 80 MG PO (21:22)
[2020-09-16 21:39] LABS: Glucose Point of Care 165 mg/dL (70-110)
[2020-09-17] VITALS (16 sets, daily range): BP systolic 112–124; BP diastolic 68–75; PULSE 80–103; RESP 16–22; TEMP 36.6–36.8; O2SAT 93–98
[2020-09-17] MEDS: ipratropium-albuterol 3 mL Neb INHALATION ×4 (00:19→11:28)
[2020-09-17 01:38] LABS: Glucose Point of Care 169 mg/dL (70-110)
[2020-09-17 05:37] LABS: Basophils # 0.1 10^3/uL (0.0-0.1); Basophils % 0.4 %; Eosinophils # 0.3 10^3/uL (0.0-0.8); Hematocrit 27.9 % (42.0-52.0); Hemoglobin 8.5 g/dL (11.7-16.6); Lymphocytes # 2.6 10^3/uL (0.8-4.8); Lymphocytes % 16.8 %; Mean Corpuscular HGB Conc 30.5 g/dL (30.0-36.0); Mean Corpuscular Hemoglobin 28.3 pg (28.0-34.0); Mean Platelet Volume 10.4 fL (7.4-10.4); Monocytes % 6.2 %; Neutrophils # 11.42 10^3/uL (1.8-7.7); Nucleated Red Blood Cells % 0 %; Platelet Count 384 10^3/cmm (130-400); Red Cell Distribution Width 16.9 % (12.1-15.1); White Blood Count 15.6 10^3/uL (4.0-10.0)
[2020-09-17 06:01] LABS: Alanine Aminotransferase 8 U/L (0-41); Albumin Level 2.8 g/dL (3.5-5.2); Alkaline Phosphatase 96 IU/L (40-130); Anion Gap 14.1 (5-19); Aspartate Amino Transferase 15 U/L (0-40); Blood Urea Nitrogen 52 mg/dL (8-23); Calcium 8.5 mg/dL (8.5-10.5); Carbon Dioxide 20 mmol/L (22-29); Chloride 108 mmol/L (98-107); Globulin 2.7 g/dL (1.3-4.6); Glomerular Filtration Rate 28.8 mL/min (90-130); Glucose 235 mg/dL (65-115); Osmolality Calculated 306 mOsm/kg (285-295); Phosphorus 2.3 mg/dL (2.5-4.5); Potassium 5.1 mmol/L (3.5-5.1); Sodium 137 mmol/L (136-145); Total Bilirubin 0.2 mg/dL (0.15-1.2); Total Protein 5.5 g/dL (6.6-8.7)
[2020-09-17] MEDS: sucralfate 1 gm Tablet PO (06:02)
[2020-09-17] MEDS: pantoprazole DR 40 mg Tablet PO (06:02)
[2020-09-17 06:45] LABS: Glucose Point of Care 419 mg/dL (70-110)
[2020-09-17] MEDS: budesonide 0.5 mg/2 mL Neb INHALATION (07:59)
[2020-09-17 08:25] LABS: NT Pro B Type Natriuretic Pept 5403 pg/mL (0-125); Procalcitonin 4.73 ng/mL (0-0.5)
[2020-09-17 08:36] LABS: Lactate (Lactic Acid level) 0.9 mmol/L (0.5-2.2)
[2020-09-17] MEDS: magnesium lactate 84 mg Tablet PO (08:38)
[2020-09-17] MEDS: polyethylene glycol 3350 Pkt 17 gm PO (08:38)
[2020-09-17] MEDS: buPROPion SR (12 HR) 150 mg Tablet PO (08:38)
[2020-09-17] MEDS: citalopram 20 mg Tablet PO (08:39)
[2020-09-17] MEDS: tamsulosin 0.4 mg Capsule PO (08:39)
[2020-09-17] MEDS: clopidogrel 75 mg Tablet PO (08:40)
[2020-09-17] MEDS: aspirin 81 mg EC Tablet PO (08:40)
[2020-09-17] MEDS: carvedilol 3.125 mg Tablet PO (08:40)
[2020-09-17] MEDS: heparin 5,000 unit/mL INJ 1 mL 5000 UNIT SUBCUT (08:41)
[2020-09-17] MEDS: metroNIDAZOLE 500 MG Tablet PO (08:41)
[2020-09-17] MEDS: ferrous sulfate EC 325 mg Tablet PO (08:41)
--- NOTE | 2020-09-17 09:49 | XRR_ITS ---
PROCEDURE INFORMATION: Exam: XR Chest, 1 View Exam date and time: 09/17/2020 11:15 AM Age: 64 years old Clinical indication: Shortness of breath; Additional info: SOB TECHNIQUE: Imaging protocol: XR of the chest Views: 1 view. COMPARISON: CR (CHEST, ) 09/16/2020 6:19 AM FINDINGS: Lungs: Linear parenchymal density is seen in the right lower lobe consistent with atelectasis. No consolidation. Pleural space: Bilateral lower lobe pleural fibrosis. No pleural effusion. No pneumothorax. Heart/Mediastinum: Calcified granuloma right hilum and right paratracheal region No cardiomegaly. Bones/joints: Unremarkable. XR/XR chest 1V portable [id number] IMPRESSION: 1. Pleural fibrosis right lower lobe . 2. Right lower lobe atelectasis 3. Calcified granulomas right hilum and right paratracheal region
[2020-09-17 11:20] LABS: Glucose Point of Care 391 mg/dL (70-110)
[2020-09-17] MEDS: FUROsemide 40 mg Tablet PO (12:26)
--- NOTE | 2020-09-17 14:09 | PC.NURSE ---
Packing removed from surgical site. Cleansed with normal saline and repacked with 1/2 in. [place]. Covered with Optifoam. Moderate purulent wound drainage noted. Patient tolerated well.
== END 2020-09-17 18:00 | disposition skilled nursing facility (03) | DRG 177 ==
LOC: ER 13:35 → MEDSURG 14:50 → ICU 15:42 → MEDSURG 09-10 10:05
PROVIDERS: Internal Medicine; Student in an Organized Health Care Education/Training Program; Admitting Provider Family Medicine; Emergency Provider Emergency Medicine; PCP Internal Medicine; Visit Provider Family Medicine
DX: J69.0 Pneumonitis due to inhalation of food and vomit (principal); I50.43 Acute on chronic combined systolic (congestive) and diastolic (congestive) heart failure; J96.01 Acute respiratory failure with hypoxia; I13.0 Hypertensive heart and chronic kidney disease with heart failure and stage 1 through stage 4 chronic kidney disease, or unspecified chronic kidney disease; J44.0 Chronic obstructive pulmonary disease with (acute) lower respiratory infection; J98.11 Atelectasis; L02.215 Cutaneous abscess of perineum; F05 Delirium due to known physiological condition; E87.4 Mixed disorder of acid-base balance; N17.9 Acute kidney failure, unspecified; N18.4 Chronic kidney disease, stage 4 (severe); E11.22 Type 2 diabetes mellitus with diabetic chronic kidney disease; E11.649 Type 2 diabetes mellitus with hypoglycemia without coma; R59.0 Localized enlarged lymph nodes; E11.51 Type 2 diabetes mellitus with diabetic peripheral angiopathy without gangrene; F17.210 Nicotine dependence, cigarettes, uncomplicated; Z99.81 Dependence on supplemental oxygen; G47.33 Obstructive sleep apnea (adult) (pediatric); I25.10 Atherosclerotic heart disease of native coronary artery without angina pectoris; Z95.5 Presence of coronary angioplasty implant and graft; Z89.512 Acquired absence of left leg below knee; Z89.511 Acquired absence of right leg below knee; Z87.01 Personal history of pneumonia (recurrent); Z86.19 Personal history of other infectious and parasitic diseases; F41.8 Other specified anxiety disorders; N40.1 Benign prostatic hyperplasia with lower urinary tract symptoms; N39.498 Other specified urinary incontinence; R33.8 Other retention of urine; Z66 Do not resuscitate; F03.90 Unspecified dementia, unspecified severity, without behavioral disturbance, psychotic disturbance, mood disturbance, and anxiety; D47.3 Essential (hemorrhagic) thrombocythemia; D63.1 Anemia in chronic kidney disease; E87.5 Hyperkalemia
CPT/HCPCS: 10060; 12345; 36415; 36416; 36600; 51702; 70450; 71045; 71250; 74176; 80053; 80202; 80500; 81001; 82140; 82274; 82607; 82728; 82746; 82803; 82962; 83036; 83540; 83550; 83605; 83735; 83880; 84100; 84145; 84443; 84484; 85025; 85045; 85610; 86140; 86403; 87040; 87070; 87077; 87086; 87186; 87493; 87641; 93005; 93306; 93880; 94640; 94660; 96372; 96375; 97110; 97161; 97165; 97535; 99283; J0456; J0610; J0692; J1610; J1644; J1815 ×2; J1940; J2543; J2920; J3370; J7050; J7512; J7626; Q0144

== ENCOUNTER 2020-10-19 04:35 | Emergency (ER) | payer MEDICARE, MEDICAID, SELFPAY ==
[2020-10-19] VITALS (9 sets, daily range): BP systolic 104–143; BP diastolic 58–80; PULSE 87–96; RESP 17–21; TEMP 36.3; O2SAT 96–100; BMI 22.8
--- NOTE | 2020-10-19 04:38 | ECG_ITS ---
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 Measurements Intervals [place] Rate: 93 P: 68 ME: 182 QRS: 0 QRSD: 105 T: 120 QT: 374 QTc: 467 Interpretive Statements SINUS RHYTHM POSSIBLE ANTERIOR MYOCARDIAL INFARCTION , OF INDETERMINATE AGE [30 ms Q WAVE IN V3/V4, OR R < 0.2 mV IN V4] INFERIOR MYOCARDIAL INFARCTION , OF INDETERMINATE AGE [40+ ms Q WAVE AND/OR ST/T ABNORMALITY IN II/aVF] MODERATE T-WAVE ABNORMALITY, CONSIDER LATERAL ISCHEMIA [-0.1+ mV T WAVE IN I/aVL/V5/V6] INTERPRETATION BASED ON A DEFAULT AGE OF 40 YEARS Compared to ECG 09/12/2020 16:32:39 T-wave abnormality now presentPossible ischemia now present Sinus tachycardia no longer present.Ventricular premature complex(es) no longer present.Intraventricular conduction delay no longer present.Left ventricular hypertrophy no longer present.ST (T wave) deviation no longer present Myocardial infarct finding still present Electronically Signed On 10-20-2020 17:54:37 TIME STUDY TECHNICIAN by Rosa Wiggins M.D. [id number]
--- NOTE | 2020-10-19 04:38 | XRR_ITS ---
PROCEDURE INFORMATION: Exam: XR Chest, 1 View Exam date and time: 10/19/2020 4:40 AM Age: 64 years old Clinical indication: Shortness of breath; Patient HX: SOB this a. M. ; Additional info: Cough TECHNIQUE: Imaging protocol: XR of the chest Views: 1 view. COMPARISON: CR (CHEST, ) 09/17/2020 11:14 AM FINDINGS: Moderate ill-defined opacification at right lung base is most compatible with pleural effusion with adjacent atelectasis/infiltrate, increased from prior study. Mild ill-defined opacification at left lung base is most compatible with atelectasis/infiltrate, new from prior study. There is now vascular congestion. There is scattered pulmonary scarring bilaterally. Visualized cardiac silhouette size again appears mildly enlarged. Pericardial effusion not excluded. XR/XR chest 1V portable [id number] IMPRESSION: Moderate ill-defined opacification at right lung base is most compatible with pleural effusion with adjacent atelectasis/infiltrate, increased from prior study. Mild ill-defined opacification at left lung base is most compatible with atelectasis/infiltrate, new from prior study. There is now vascular congestion. Visualized cardiac silhouette size again appears mildly enlarged. Pericardial effusion not excluded.
--- NOTE | 2020-10-19 04:39 | W.ED.SOB ---
Documented by User: Chris Ruiz MD 10/19/20 04:43 HPI - SOB/Dyspnea General: Chief Complaint: Shortness of Breath/Dyspnea Stated Complaint: SOB Time Seen by Provider: 10/19/20 04:38 Source: patient and care support representative Mode of arrival: EMS Limitations: no limitations History of Present Illness: HPI Narrative: 64-year-old male here from local [facility]. He has a history of COPD states that tonight he started having some wheezing increased shortness of breath. Patient states he feels much better after 2 breathing treatments. He is 98% here on 2 L which he wears all the time due to COPD. He denies any fever. He has had a slight cough. His glucose was elevated as well at the [facility] in the 400s. Associated symptoms: Deny abdominal pain, chest pain, fever(s), nausea or vomiting Review of Systems Const: Denies: fever(s), chills, body aches or change in appetite Eyes: Denies: blurry vision or eye discomfort ENMT: Denies: throat pain or dental pain Card: Denies: chest pain Resp: Reports: dyspnea and wheezing GI: Denies: abdominal pain, nausea, vomiting or diarrhea : Denies: dysuria Musc: Denies: neck pain or back pain Skin/Breast: Denies: rash Neuro: Denies: headache(s) Psych: Denies: depression Ashvin/Lymph: Denies: easy bruising All/Imm: Denies: urticaria PFS ED PFSH: Medical History (Updated 10/19/20 @ 07:18 by Will York DO) Abnormal cystoscopy Anxiety BPH (benign prostatic hyperplasia) Chronic systolic CHF (congestive heart failure) CKD stage 3 secondary to diabetes COPD (chronic obstructive pulmonary disease) Coronary artery disease Depression Dysphagia History of urinary retention Hypertension Peripheral vascular disease Type 2 diabetes mellitus Urgency incontinence Surgical History Coronary angioplasty status History of carpal tunnel surgery History of hip surgery S/P bilateral BKA (below knee amputation) S/P right coronary artery (RCA) stent placement Family History Other CAD (coronary artery disease) Diabetes Social History Smoking and tobacco status: current every day smoker cigarettes Packs smoked per day: 0.5 Years cigarettes smoked: 59 Second hand smoke exposure: Yes Alcohol intake: never Lives independently: No Housing: [facility] Marital status: Current occupational status: retired and disabled History of recent travel: No Current gender identity: Male Physical Exam Const: COMMON NORMALS: no acute distress, patient oriented x3 and healthy appearing HENMT: COMMON NORMALS: normocephalic and atraumatic HEAD & SCALP: normocephalic and atraumatic Eye: COMMON NORMALS: Equal, round and reactive pupils present and EOMs intact bilaterally PUPIL: Yes Equal, round and reactive pupils present Neck/C-Spine: COMMON NORMALS: full ROM and supple Chest: COMMONS NORMALS: normal inspection of the chest and normal palpation of entire chest wall Resp: COMMON NORMALS: normal respiratory effort, No retractions and No use of accessory muscles AUSCULTATION: wheezes Cardio: COMMON NORMALS: regular rate, regular rhythm and No murmurs present (Cardio) RATE: regular rate RHYTHM: regular rhythm GI: COMMON NORMALS: Normal to inspection, nondistended, normoactive bowel sounds present, Soft to palpation, non-tender and no masses PALPATION: Yes Soft to palpation Extremity: COMMON NORMALS: normal to inspection and full ROM Neuro: COMMON NORMALS: patient oriented x3, moves all extremities and no focal motor deficits Psych: COMMON NORMALS: mental status grossly normal, Normal thought process present and cooperative THOUGHT PROCESS: Normal thought process present Skin: COMMON NORMALS: no rashes or lesions noted and no wounds GENERAL SKIN EXAM: no rashes or lesions noted Course Vital Signs: Vital signs: Vital Signs Temperature 97.3 F L 10/19/20 04:39 Pulse Rate 96 10/19/20 08:54 Respiratory Rate 18 10/19/20 08:54 Blood Pressure 143/76 10/19/20 08:54 Pulse Oximetry 96 10/19/20 08:54 MDM - SOB/Dyspnea Lab Data: Labs: Lab Results 10/19/20 10/19/20 10/19/20 Range/Units 04:38 05:03 05:04 WBC (4.0-10.0) 10^3/ uL RBC (4.1-5.3) 10^6/u L Hgb (11.7-16.6) g/dL Hct (42.0-52.0) % MCV (80-94) fL MCH (28.0-34.0) pg MCHC (30.0-36.0) g/dL RDW (12.1-15.1) % Plt Count (130-400) 10^3/c mm MPV (7.4-10.4) fL Neut % (Auto) % Lymph % (Auto) % [place] % (Auto) % Eos % (Auto) % Baso % (Auto) % Neut # (Auto) (1.8-7.7) 10^3/u L Lymph # (Auto) (0.8-4.8) 10^3/u L [place] # (Auto) (0.2-0.9) 10^3/u L Eos # (Auto) (0.0-0.8) 10^3/u L Baso # (Auto) (0.0-0.1) 10^3/u L Nucleated RBC % (a uto) % Nucleated RBCs # /100WBC Specimen Type Arterial Sample Site Brachial, right ABG pH 7.38 (7.35-7.45) ABG pCO2 44.5 (35-45) mmHg ABG pO2 84.4 (80.0-100.0) mmH g ABG HCO3 26.2 H (22-26) mmol/L ABG Base Excess 0.8 (-2.0-2.0) mmol/ L Pop Test N/a Hematocrit 29.0 L (42-52) % Hgb O2 Saturation 95.8 (95-100) % Carboxyhemoglobin 1.2 (0.4-20.1) %THgb Methemoglobin 0.1 L (0.4-1.5) % Total Hemoglobin 9.5 L (14-18) g/dL O2 Delivery Device Nc O2 Liters/Min 2.0 % Title Search Manager ID Jlg Sodium (136-145) mmol/L Potassium (3.5-5.1) mmol/L Chloride (98-107) mmol/L Carbon Dioxide (22-29) mmol/L Anion Gap (5-19) BUN (8-23) mg/dL Creatinine (0.7-1.2) mg/dL GFR Calculation (90-130) mL/min Glucose (65-115) mg/dL POC Glucose 401 H (70-110) mg/dL Calculated Osmolal ity (285-295) mOsm/k g Calcium (8.5-10.5) mg/dL Total Bilirubin (0.15-1.2) mg/dL AST (0-40) U/L ALT (0-41) U/L Alkaline Phosphata se (40-130) IU/L NT-Pro-B Natriuret Pep (0-125) pg/mL Total Protein (6.6-8.7) g/dL Albumin (3.5-5.2) g/dL Globulin (1.3-4.6) g/dL SARS-CoV-2 Ag (Rap id) Negative (Negative) 10/19/20 10/19/20 10/19/20 Range/Units 05:09 05:09 06:00 WBC 16.9 H (4.0-10.0) 10^3/ uL RBC 3.61 L (4.1-5.3) 10^6/u L Hgb 9.9 L (11.7-16.6) g/dL Hct 32.6 L (42.0-52.0) % MCV 90.3 (80-94) fL MCH 27.4 L (28.0-34.0) pg MCHC 30.4 (30.0-36.0) g/dL RDW 16.7 H (12.1-15.1) % Plt Count 425 H (130-400) 10^3/c mm MPV 9.3 (7.4-10.4) fL Neut % (Auto) 82.3 % Lymph % (Auto) 9.2 % [place] % (Auto) 4.6 % Eos % (Auto) 1.7 % Baso % (Auto) 0.8 % Neut # (Auto) 13.88 H (1.8-7.7) 10^3/u L Lymph # (Auto) 1.6 (0.8-4.8) 10^3/u L [place] # (Auto) 0.8 (0.2-0.9) 10^3/u L Eos # (Auto) 0.3 (0.0-0.8) 10^3/u L Baso # (Auto) 0.1 (0.0-0.1) 10^3/u L Nucleated RBC % (a uto) 0 % Nucleated RBCs # 0.0 /100WBC Specimen Type Sample Site ABG pH (7.35-7.45) ABG pCO2 (35-45) mmHg ABG pO2 (80.0-100.0) mmH g ABG HCO3 (22-26) mmol/L ABG Base Excess (-2.0-2.0) mmol/ L Pop Test Hematocrit (42-52) % Hgb O2 Saturation (95-100) % Carboxyhemoglobin (0.4-20.1) %THgb Methemoglobin (0.4-1.5) % Total Hemoglobin (14-18) g/dL O2 Delivery Device O2 Liters/Min % Title Search Manager ID Sodium 136 (136-145) mmol/L Potassium 5.2 H (3.5-5.1) mmol/L Chloride 100 (98-107) mmol/L Carbon Dioxide 24 (22-29) mmol/L Anion Gap 17.2 (5-19) BUN 47 H (8-23) mg/dL Creatinine 2.4 H (0.7-1.2) mg/dL GFR Calculation 27.4 L (90-130) mL/min Glucose 390 H (65-115) mg/dL POC Glucose 326 H (70-110) mg/dL Calculated Osmolal ity 310 H (285-295) mOsm/k g Calcium 8.9 (8.5-10.5) mg/dL Total Bilirubin 0.2 (0.15-1.2) mg/dL AST 14 (0-40) U/L ALT 15 (0-41) U/L Alkaline Phosphata se 126 (40-130) IU/L NT-Pro-B Natriuret Pep 6180 H (0-125) pg/mL Total Protein 7.0 (6.6-8.7) g/dL Albumin 3.4 L (3.5-5.2) g/dL Globulin 3.6 (1.3-4.6) g/dL SARS-CoV-2 Ag (Rap id) (Negative) EKG Data^: EKG 1: Attestation: I personally reviewed and interpreted this EKG as follows: EKG Interpretation Date: 10/19/20 EKG interpretation time: 04:39 Interpretation: nsr hr [address] or t wave abnormalities qrs 105 qtc 425 Discharge Plan Discharge Patient Disposition: Home Clinical Impression: COPD (chronic obstructive pulmonary disease), Pneumonia, Type 2 diabetes mellitus Condition: Stable Prescriptions: New levofloxacin 500 mg tablet 500 mg PO DAILY 10 Days Qty: 10 RF: 0 No Action albuterol sulfate 2.5 mg /3 mL (0.083 %) solution for nebulization 2.5 mg INHALATION Q4H PRN (Reason: Shortness Of Breath) RF: 0 ondansetron HCl [Zofran] 4 mg Tablet 4 mg PO Q4H PRN (Reason: Nausea) RF: 0 magnesium hydroxide [Milk of Magnesia] 400 mg/5 mL Suspension 30 ml PO DAILY PRN (Reason: CONSTIPATON) RF: 0 Mucinex DM 30-600 mg Tablet Extended Release 12 Hr 1 tab PO BID@08,20 RF: 0 Hair,Skin and Nails 1 mg iron-66.7 mcg-1,000 mcg Tablet 1 tab PO DAILY@08 RF: 0 citalopram 20 mg tablet 20 mg PO DAILY@08 RF: 0 pantoprazole 40 mg tablet,delayed release (DR/EC) 40 mg PO BID@06,18 RF: 0 polyethylene glycol 3350 [Miralax] 17 gram Powder In Packet 17 g PO DAILY@08 RF: 0 nicotine (polacrilex) 2 mg lozenge 2 mg BUCCAL Q1H PRN (Reason: nicotine cravings) Qty: 72 RF: 0 bupropion HCl [Wellbutrin SR] 150 mg Tablet Sustained-Release 12 Hr 150 mg PO Q12H RF: 0 acetaminophen 325 mg Tablet 650 mg PO Q4H PRN (Reason: Pain) Qty: 0 RF: 0 clopidogrel [Plavix] 75 mg Tablet 75 mg PO DAILY@08 RF: 0 aspirin 81 mg Tablet,Delayed Release (Dr/Ec) 81 mg PO DAILY@08 RF: 0 carvedilol 3.125 mg Tablet 3.125 mg PO BID@08,20 RF: 0 tamsulosin 0.4 mg Capsule 0.4 mg PO DAILY@08 RF: 0 bisacodyl 10 mg Suppository 10 mg AR DAILY PRN (Reason: CONSTIPATED) RF: 0 nitroglycerin 0.4 mg Tablet, Sublingual 0.4 mg SUBLINGUAL Q5M PRN (Reason: Chest Pain) RF: 0 budesonide 0.5 mg/2 mL suspension for nebulization 2 ml inhalation BID RF: 0 loratadine 10 mg Tablet 10 mg PO DAILY@08 RF: 0 insulin lispro [Humalog KwikPen Insulin] 100 unit/mL Insulin Pen See Rx Instructions .ROUTE .COMPLEX RF: 0 rosuvastatin [Crestor] 20 mg Tablet 20 mg PO DAILY@20 RF: 0 magnesium L-lactate [Magtab] 84 mg Tablet Extended Release 84 mg PO DAILY@08 RF: 0 ipratropium-albuterol 0.5 mg-3 mg(2.5 mg base)/3 mL Solution For Nebulization 3 ml INHALATION BID@ PRN (Reason: Shortness Of Breath) RF: 0 TwoCal HN 0.08-2 gram-kcal/mL Liquid 1 ea PO BID@ RF: 0 Glucagon (HCl) Emergency Kit 1 mg Recon Soln 1 mg SUBCUT Q20M PRN (Reason: BLOOD SUGAR) RF: 0 Discharge Orders: Discharge ED (Routine); Ordered 10/19/20 Ordered By: Will York Referrals: Hiram Black DO [Primary Care Provider] - Discharge Diet: Usual diet Discharge Activity: Resume usual activity Activity Restrictions/Additional Instructions: Use albuterol inhaler every 4 hours as needed Sign Out Sign Out Data: Patient Sign Out occurred on 10/19/20 at 06:26. Patient's care was discussed, and care was transferred from to Will York DO. Coding Level of Care Code ED Fish Bailer for Chg Fwd Exam Comprehensive Documented by User: Will York DO 10/19/20 10:29 HPI - SOB/Dyspnea General: Chief Complaint: Shortness of Breath/Dyspnea Stated Complaint: SOB Time Seen by Provider: 10/19/20 04:38 PFSH ED PFSH: Medical History (Updated 10/19/20 @ 07:18 by Will York DO) Abnormal cystoscopy Anxiety BPH (benign prostatic hyperplasia) Chronic systolic CHF (congestive heart failure) CKD stage 3 secondary to diabetes COPD (chronic obstructive pulmonary disease) Coronary artery disease Depression Dysphagia History of urinary retention Hypertension Peripheral vascular disease Type 2 diabetes mellitus Urgency incontinence Surgical History Coronary angioplasty status History of carpal tunnel surgery History of hip surgery S/P bilateral BKA (below knee amputation) S/P right coronary artery (RCA) stent placement Family History Other CAD (coronary artery disease) Diabetes Social History Smoking and tobacco status: current every day smoker cigarettes Packs smoked per day: 0.5 Years cigarettes smoked: 59 Second hand smoke exposure: Yes Alcohol intake: never Lives independently: No Housing: [facility] Marital status: Current occupational status: retired and disabled History of recent travel: No Current gender identity: Male Course Vital Signs: Vital signs: Vital Signs Temperature 97.3 F L 10/19/20 04:39 Pulse Rate 96 10/19/20 08:54 Respiratory Rate 18 10/19/20 08:54 Blood Pressure 143/76 10/19/20 08:54 Pulse Oximetry 96 10/19/20 08:54 MDM - SOB/Dyspnea MDM Narrative: Medical decision making narrative: Care assumed from Dr. Ruiz. His sats are good on his normal amount of oxygen and radiographically does look like he has an increase in pneumonia. Slight elevation white count he states he feels fine. At this point I believe they can treat him treat him at the [facility] we will start him on p.o. antibiotic continue albuterol. According to the [facility] he had Covid in July 2020. Rapid antigen done here today was negative. Lab Data: Labs: Lab Results 10/19/20 10/19/20 10/19/20 Range/Units 04:38 05:03 05:04 WBC (4.0-10.0) 10^3/ uL RBC (4.1-5.3) 10^6/u L Hgb (11.7-16.6) g/dL Hct (42.0-52.0) % MCV (80-94) fL MCH (28.0-34.0) pg MCHC (30.0-36.0) g/dL RDW (12.1-15.1) % Plt Count (130-400) 10^3/c mm MPV (7.4-10.4) fL Neut % (Auto) % Lymph % (Auto) % [place] % (Auto) % Eos % (Auto) % Baso % (Auto) % Neut # (Auto) (1.8-7.7) 10^3/u L Lymph # (Auto) (0.8-4.8) 10^3/u L [place] # (Auto) (0.2-0.9) 10^3/u L Eos # (Auto) (0.0-0.8) 10^3/u L Baso # (Auto) (0.0-0.1) 10^3/u L Nucleated RBC % (a uto) % Nucleated RBCs # /100WBC Specimen Type Arterial Sample Site Brachial, right ABG pH 7.38 (7.35-7.45) ABG pCO2 44.5 (35-45) mmHg ABG pO2 84.4 (80.0-100.0) mmH g ABG HCO3 26.2 H (22-26) mmol/L ABG Base Excess 0.8 (-2.0-2.0) mmol/ L Pop Test N/a Hematocrit 29.0 L (42-52) % Hgb O2 Saturation 95.8 (95-100) % Carboxyhemoglobin 1.2 (0.4-20.1) %THgb Methemoglobin 0.1 L (0.4-1.5) % Total Hemoglobin 9.5 L (14-18) g/dL O2 Delivery Device Nc O2 Liters/Min 2.0 % Title Search Manager ID Jlg Sodium (136-145) mmol/L Potassium (3.5-5.1) mmol/L Chloride (98-107) mmol/L Carbon Dioxide (22-29) mmol/L Anion Gap (5-19) BUN (8-23) mg/dL Creatinine (0.7-1.2) mg/dL GFR Calculation (90-130) mL/min Glucose (65-115) mg/dL POC Glucose 401 H (70-110) mg/dL Calculated Osmolal ity (285-295) mOsm/k g Calcium (8.5-10.5) mg/dL Total Bilirubin (0.15-1.2) mg/dL AST (0-40) U/L ALT (0-41) U/L Alkaline Phosphata se (40-130) IU/L NT-Pro-B Natriuret Pep (0-125) pg/mL Total Protein (6.6-8.7) g/dL Albumin (3.5-5.2) g/dL Globulin (1.3-4.6) g/dL SARS-CoV-2 Ag (Rap id) Negative (Negative) 10/19/20 10/19/20 10/19/20 Range/Units 05:09 05:09 06:00 WBC 16.9 H (4.0-10.0) 10^3/ uL RBC 3.61 L (4.1-5.3) 10^6/u L Hgb 9.9 L (11.7-16.6) g/dL Hct 32.6 L (42.0-52.0) % MCV 90.3 (80-94) fL MCH 27.4 L (28.0-34.0) pg MCHC 30.4 (30.0-36.0) g/dL RDW 16.7 H (12.1-15.1) % Plt Count 425 H (130-400) 10^3/c mm MPV 9.3 (7.4-10.4) fL Neut % (Auto) 82.3 % Lymph % (Auto) 9.2 % [place] % (Auto) 4.6 % Eos % (Auto) 1.7 % Baso % (Auto) 0.8 % Neut # (Auto) 13.88 H (1.8-7.7) 10^3/u L Lymph # (Auto) 1.6 (0.8-4.8) 10^3/u L [place] # (Auto) 0.8 (0.2-0.9) 10^3/u L Eos # (Auto) 0.3 (0.0-0.8) 10^3/u L Baso # (Auto) 0.1 (0.0-0.1) 10^3/u L Nucleated RBC % (a uto) 0 % Nucleated RBCs # 0.0 /100WBC Specimen Type Sample Site ABG pH (7.35-7.45) ABG pCO2 (35-45) mmHg ABG pO2 (80.0-100.0) mmH g ABG HCO3 (22-26) mmol/L ABG Base Excess (-2.0-2.0) mmol/ L Pop Test Hematocrit (42-52) % Hgb O2 Saturation (95-100) % Carboxyhemoglobin (0.4-20.1) %THgb Methemoglobin (0.4-1.5) % Total Hemoglobin (14-18) g/dL O2 Delivery Device O2 Liters/Min % Title Search Manager ID Sodium 136 (136-145) mmol/L Potassium 5.2 H (3.5-5.1) mmol/L Chloride 100 (98-107) mmol/L Carbon Dioxide 24 (22-29) mmol/L Anion Gap 17.2 (5-19) BUN 47 H (8-23) mg/dL Creatinine 2.4 H (0.7-1.2) mg/dL GFR Calculation 27.4 L (90-130) mL/min Glucose 390 H (65-115) mg/dL POC Glucose 326 H (70-110) mg/dL Calculated Osmolal ity 310 H (285-295) mOsm/k g Calcium 8.9 (8.5-10.5) mg/dL Total Bilirubin 0.2 (0.15-1.2) mg/dL AST 14 (0-40) U/L ALT 15 (0-41) U/L Alkaline Phosphata se 126 (40-130) IU/L NT-Pro-B Natriuret Pep 6180 H (0-125) pg/mL Total Protein 7.0 (6.6-8.7) g/dL Albumin 3.4 L (3.5-5.2) g/dL Globulin 3.6 (1.3-4.6) g/dL SARS-CoV-2 Ag (Rap id) (Negative) Discharge Plan Discharge Patient Disposition: Home Clinical Impression: COPD (chronic obstructive pulmonary disease), Pneumonia, Type 2 diabetes mellitus Condition: Stable Prescriptions: New levofloxacin 500 mg tablet 500 mg PO DAILY 10 Days Qty: 10 RF: 0 No Action albuterol sulfate 2.5 mg /3 mL (0.083 %) solution for nebulization 2.5 mg INHALATION Q4H PRN (Reason: Shortness Of Breath) RF: 0 ondansetron HCl [Zofran] 4 mg Tablet 4 mg PO Q4H PRN (Reason: Nausea) RF: 0 magnesium hydroxide [Milk of Magnesia] 400 mg/5 mL Suspension 30 ml PO DAILY PRN (Reason: CONSTIPATON) RF: 0 Mucinex DM 30-600 mg Tablet Extended Release 12 Hr 1 tab PO BID@08,20 RF: 0 Hair,Skin and Nails 1 mg iron-66.7 mcg-1,000 mcg Tablet 1 tab PO DAILY@08 RF: 0 citalopram 20 mg tablet 20 mg PO DAILY@08 RF: 0 pantoprazole 40 mg tablet,delayed release (DR/EC) 40 mg PO BID@06,18 RF: 0 polyethylene glycol 3350 [Miralax] 17 gram Powder In Packet 17 g PO DAILY@08 RF: 0 nicotine (polacrilex) 2 mg lozenge 2 mg BUCCAL Q1H PRN (Reason: nicotine cravings) Qty: 72 RF: 0 bupropion HCl [Wellbutrin SR] 150 mg Tablet Sustained-Release 12 Hr 150 mg PO Q12H RF: 0 acetaminophen 325 mg Tablet 650 mg PO Q4H PRN (Reason: Pain) Qty: 0 RF: 0 clopidogrel [Plavix] 75 mg Tablet 75 mg PO DAILY@08 RF: 0 aspirin 81 mg Tablet,Delayed Release (Dr/Ec) 81 mg PO DAILY@08 RF: 0 carvedilol 3.125 mg Tablet 3.125 mg PO BID@08,20 RF: 0 tamsulosin 0.4 mg Capsule 0.4 mg PO DAILY@08 RF: 0 bisacodyl 10 mg Suppository 10 mg AR DAILY PRN (Reason: CONSTIPATED) RF: 0 nitroglycerin 0.4 mg Tablet, Sublingual 0.4 mg SUBLINGUAL Q5M PRN (Reason: Chest Pain) RF: 0 budesonide 0.5 mg/2 mL suspension for nebulization 2 ml inhalation BID RF: 0 loratadine 10 mg Tablet 10 mg PO DAILY@08 RF: 0 insulin lispro [Humalog KwikPen Insulin] 100 unit/mL Insulin Pen See Rx Instructions .ROUTE .COMPLEX RF: 0 rosuvastatin [Crestor] 20 mg Tablet 20 mg PO DAILY@20 RF: 0 magnesium L-lactate [Magtab] 84 mg Tablet Extended Release 84 mg PO DAILY@08 RF: 0 ipratropium-albuterol 0.5 mg-3 mg(2.5 mg base)/3 mL Solution For Nebulization 3 ml INHALATION BID@ PRN (Reason: Shortness Of Breath) RF: 0 TwoCal HN 0.08-2 gram-kcal/mL Liquid 1 ea PO BID@ RF: 0 Glucagon (HCl) Emergency Kit 1 mg Recon Soln 1 mg SUBCUT Q20M PRN (Reason: BLOOD SUGAR) RF: 0 Discharge Orders: Discharge ED (Routine); Ordered 10/19/20 Ordered By: Will York Referrals: Hiram Black DO [Primary Care Provider] - Discharge Diet: Usual diet Discharge Activity: Resume usual activity Activity Restrictions/Additional Instructions: Use albuterol inhaler every 4 hours as needed Sign Out Sign Out Data: Patient Sign Out occurred on 10/19/20 at 06:26. Patient's care was discussed, and care was transferred from to Will York DO. Coding Level of Care Code ED Fish Bailer for Chg Fwd Exam Comprehensive
[2020-10-19 05:00] LABS: ABG PCO2 44.5 mmHg (35-45); ABG PH Result 7.38 (7.35-7.45); Base Excess ABG 0.8 mmol/L (-2.0-2.0); Blood Gas Sample Site Brachial, right; Blood Gas Sample Type Arterial; Carboxyhemoglobin 1.2 %THgb (0.4-20.1); HCO3 ABG 26.2 mmol/L (22-26); HGB O2 Sat 95.8 % (95-100); Methemoglobin 0.1 % (0.4-1.5); Oxygen Device NC; PO2 ABG 84.4 mmHg (80.0-100.0); Total Hemoglobin 9.5 g/dL (14-18)
[2020-10-19 05:09] LABS: Glucose Point of Care 401 mg/dL (70-110)
[2020-10-19] MEDS: insulin regular-human 100 units/1 mL 8 UNIT IVP (05:18)
[2020-10-19 05:19] LABS: Basophils # 0.1 10^3/uL (0.0-0.1); Basophils % 0.8 %; Eosinophils # 0.3 10^3/uL (0.0-0.8); Eosinophils % 1.7 %; Hematocrit 32.6 % (42.0-52.0); Hemoglobin 9.9 g/dL (11.7-16.6); Lymphocytes # 1.6 10^3/uL (0.8-4.8); Lymphocytes % 9.2 %; Mean Corpuscular HGB Conc 30.4 g/dL (30.0-36.0); Mean Corpuscular Hemoglobin 27.4 pg (28.0-34.0); Mean Corpuscular Volume 90.3 fL (80-94); Mean Platelet Volume 9.3 fL (7.4-10.4); Monocytes # 0.8 10^3/uL (0.2-0.9); Monocytes % 4.6 %; Neutrophils # 13.88 10^3/uL (1.8-7.7); Neutrophils % 82.3 %; Nucleated Red Blood Cells % 0 %; Platelet Count 425 10^3/cmm (130-400); Red Blood Count 3.61 10^6/uL (4.1-5.3); Red Cell Distribution Width 16.7 % (12.1-15.1); White Blood Count 16.9 10^3/uL (4.0-10.0)
[2020-10-19 05:49] LABS: Alanine Aminotransferase 15 U/L (0-41); Albumin Level 3.4 g/dL (3.5-5.2); Alkaline Phosphatase 126 IU/L (40-130); Anion Gap 17.2 (5-19); Aspartate Amino Transferase 14 U/L (0-40); Blood Urea Nitrogen 47 mg/dL (8-23); Calcium 8.9 mg/dL (8.5-10.5); Carbon Dioxide 24 mmol/L (22-29); Chloride 100 mmol/L (98-107); Globulin 3.6 g/dL (1.3-4.6); Glomerular Filtration Rate 27.4 mL/min (90-130); Glucose 390 mg/dL (65-115); NT Pro B Type Natriuretic Pept 6180 pg/mL (0-125); Osmolality Calculated 310 mOsm/kg (285-295); Potassium 5.2 mmol/L (3.5-5.1); Sodium 136 mmol/L (136-145); Total Bilirubin 0.2 mg/dL (0.15-1.2)
[2020-10-19 05:50] LABS: SARS Covid-2 Antigen Negative (Negative)
[2020-10-19 06:04] LABS: Glucose Point of Care 326 mg/dL (70-110)
--- NOTE | 2020-10-19 06:53 | PC.NURSE ---
Received report assumed care. No changes noted from report. Resting with lights off. Continue to monitor. Vitals stable .
[2020-10-19] MEDS: levofloxacin-dextrose 5 % 750 MG/150 ML PREMIX 100 MG IV (07:44)
[2020-10-19] MEDS: piperacillin-tazobactam 3.375 GM in sodium chloride 0.9% (plus) 50 ML IV (07:45)
--- NOTE | 2020-10-19 08:58 | PC.NURSE ---
Rx infusing. No acute distress , continue to monitor.
--- NOTE | 2020-10-19 10:29 | PC.NURSE ---
Resting with lights off. Waiting on transportation. No acute distress noted
--- NOTE | 2020-10-19 11:56 | PC.NURSE ---
Resting with lights off, no acute distress noted. Waiting for transportation
[2020-10-19 16:22] LABS: Coronavirus Test Green County Not Detected
--- NOTE | 2020-10-20 09:41 | PC.NURSE ---
alf notified of COVID results at this time.
== END 2020-10-19 13:26 | disposition home or self-care (01) ==
PROVIDERS: Emergency Medicine; Emergency Provider Family Medicine; PCP Internal Medicine
DX: J44.0 Chronic obstructive pulmonary disease with (acute) lower respiratory infection (principal); J18.9 Pneumonia, unspecified organism; Z79.02 Long term (current) use of antithrombotics/antiplatelets; Z79.82 Long term (current) use of aspirin; Z79.4 Long term (current) use of insulin; I13.0 Hypertensive heart and chronic kidney disease with heart failure and stage 1 through stage 4 chronic kidney disease, or unspecified chronic kidney disease; E11.22 Type 2 diabetes mellitus with diabetic chronic kidney disease; N18.30 Chronic kidney disease, stage 3 unspecified; I50.22 Chronic systolic (congestive) heart failure; I25.10 Atherosclerotic heart disease of native coronary artery without angina pectoris; Z98.61 Coronary angioplasty status; F17.210 Nicotine dependence, cigarettes, uncomplicated
CPT/HCPCS: 12345; 36415; 36416; 71045; 80053; 82805; 82962; 83880; 85025; 87040; 87426; 87635; 93005; 96365; 96367; 96375; 99283; 99284; J1815; J1956; J2543; J2930

== ENCOUNTER 2020-10-28 12:03 | Inpatient (IN) | payer MEDICARE, MEDICAID, SELFPAY ==
[2020-10-28] VITALS (9 sets, daily range): BP systolic 105–134; BP diastolic 67–76; PULSE 83–93; RESP 14–24; TEMP 36.6–37; O2SAT 90–100; BMI 24.3
--- NOTE | 2020-10-28 12:38 | XR_ITS ---
WS: [id number] Portable AP upright chest, 10/28/2020 Clinical Data: dyspnea/cough Comparison: Portable chest, 10/19/2020. Findings: The heart is enlarged. The pulmonary vascularity is increased. There is a right pleural eff usion. The right lower lobe has atelectasis and/or pneumonia. Monitor leads are on the chest wall. XR/XR chest 1V portable [id number] Impression: 1. Cardiomegaly with pulmonary vascular congestion. 2. Right pleural effusion with possible right lower lobe consolidation.
--- NOTE | 2020-10-28 12:39 | ECG_ITS ---
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 Measurements Intervals [place] Rate: 93 P: 67 NM: 182 QRS: 11 QRSD: 96 T: 105 QT: 376 QTc: 468 Interpretive Statements SINUS RHYTHM POSSIBLE ANTERIOR MYOCARDIAL INFARCTION , OF INDETERMINATE AGE [30 ms Q WAVE IN V3/V4, OR R < 0.2 mV IN V4] INFERIOR MYOCARDIAL INFARCTION , OF INDETERMINATE AGE [40+ ms Q WAVE AND/OR ST/T ABNORMALITY IN II/aVF] Compared to ECG 10/19/2020 04:39:53 T-wave abnormality no longer present Possible ischemia no longer present Myocardial infarct finding still present Electronically Signed On 10-29-2020 10:55:38 TAX COLLECTOR by Greg Strong M.D. [id number]
--- NOTE | 2020-10-28 12:43 | CT_ITS ---
WS: [id number] CT ABDOMEN AND PELVIS WITH CONTRAST HISTORY: Respiratory distress with abdominal pain and fever. TECHNIQUE: Imaging performed of the abdomen and pelvis with IV contrast. Single phase imaging of the abdomen. Coronal and sagittal reformats are submitted. All CT scans at [facility] use at least one of these dose optimization techniques: automated exposure control; mA and/or kV adjustment per patient size (includes targeted exams where dose is matched to clinical indication); or iterativ e reconstruction. IV CONTRAST: Visipaque 320; 95 mL IV. Oral contrast: No DLP: 469.14 mGy.cm COMPARISON: 09/07/2020 Lower thorax: Small bilateral pleural effusions. Dense areas of consolidation at the lung bases with mild progression since the prior study. Dense coarse calcifications in the lower thorax. Moderate enl argement the heart. No hiatal hernia. Liver/biliary system: Normal size with no intrahepatic dilatation. Gallbladder: Normal. No gallstones or wall thickening. No pericholecystic fluid. Pancreas: Mild atrophy of the pancreas. Spleen: Granulomata. No enlargement. Adrenal glands: Normal. Right kidney: Variable enhancement throughout the RIGHT kidney. Areas of the cortex do not enhance an d there is delayed enhancement. No obstruction. No significant perinephric stranding. Left kidney: Focal areas of nonenhancement and delayed enhancement in the LEFT kidney. No obstruction or mass. Aorta: Moderate atherosclerosis aorta and the mesenteric arteries. There is heavy calcification in th is SMA. Mild stenosis of the distal aorta. Extensive moderate calcifications continue through the charo ac arteries. Lymphadenopathy: None. Free fluid: None. GI tract: Diffuse constipation. No obstruction. Abdominal wall: Fat-containing umbilical hernia. Pelvis: Normal distention of the bladder. Severe retention of fecal material at the rectum. Bones: Severe loss of the disc space at L2-3. Diffuse osteopenia. Prior LEFT hip arthroplasty. CT/CT abdomen pelvis w con* [id number] IMPRESSION: 1. Small bilateral pleural effusions with progressive areas of consolidation a t the lung bases which is probably pneumonia. 2. Variable enhancement within each kidney, RIGHT greater than LEFT. Suspiciou s for pyelonephritis/UTI. 3. Extensive atherosclerosis aorta and mesenteric arteries. 4. Severe constipation.
--- NOTE | 2020-10-28 12:44 | ED_ITS ---
HPI - SOB/Dyspnea General: Chief Complaint: Shortness of Breath/Dyspnea Stated Complaint: RESPIRATORY DISTRESS Time Seen by Provider: 10/28/20 12:05 History of Present Illness: HPI Narrative: 64-year-old male [facility] from the [facility] with complaints of shortness of breath and abdominal pain. He was recently diagnosed with Covid he is outside of the isolation window he was started on Levaquin for cough and shortness of breath it has gotten increasingly worse he is course requiring oxygen by mask at 8 L/min to maintain his sats. He did not have a fever on arrival here. He is also complaining of some abdominal pain and bloating he denies any diarrhea but did throw up earlier today. MD elicited complaint: shortness of breath and cough Pertinent past history: congestive heart failure and diabetes Onset (ago): day(s) Timing: constant Severity: moderate Exacerbating factors: lying flat, exertion and coughing Relieving factors: oxygen and rest Known history of: congestive heart failure and diabetes Associated symptoms: Reports abdominal pain, chest congestion, cough, myalgias, nausea, orthopnea, syncope and vomiting; Deny chest pain, diaphoresis, dizziness, extremity pain, fever(s), hemoptysis, lightheadedness, palpitations, paresthesias, polydipsia, polyuria, rash or sense of impending doom Treatment prior to arrival: oxygen Review of Systems Const: Denies: fever(s) or diaphoresis ENMT: Denies: throat pain, ear or mastoid pain, nasal discharge or nasal congestion Card: Reports: syncope and orthopnea; Denies: chest pain, palpitations or lightheadedness Resp: Reports: chest congestion; Denies: hemoptysis GI: Reports: abdominal pain, nausea and vomiting : Denies: flank pain, dysuria, urinary frequency or urinary urgency Musc: Denies: extremity pain Skin/Breast: Denies: rash or pruritus Endo: Denies: polyuria or polydipsia PFSH ED PFSH: Medical History (Updated 10/28/20 @ 17:26 by Will York DO) Abnormal cystoscopy Anxiety BPH (benign prostatic hyperplasia) Chronic systolic CHF (congestive heart failure) CKD stage 3 secondary to diabetes COPD (chronic obstructive pulmonary disease) Coronary artery disease Depression Dysphagia History of urinary retention Hypertension Peripheral vascular disease Type 2 diabetes mellitus Urgency incontinence Surgical History Coronary angioplasty status History of carpal tunnel surgery History of hip surgery S/P bilateral BKA (below knee amputation) S/P right coronary artery (RCA) stent placement Family History Other CAD (coronary artery disease) Diabetes Social History Smoking and tobacco status: current every day smoker cigarettes Packs smoked per day: 0.5 Years cigarettes smoked: 59 Second hand smoke exposure: Yes Alcohol intake: never Lives independently: No Housing: [facility] Marital status: Current occupational status: retired and disabled History of recent travel: No Current gender identity: Male Physical Exam Const: COMMON NORMALS: no acute distress GENERAL APPEARANCE: cooperative and comfortable ORIENTATION/CONSCIOUSNESS: Yes awake, Yes oriented to person, Yes oriented to place and Yes oriented to time HENMT: COMMON NORMALS: normocephalic, atraumatic and hearing grossly normal bilaterally HEAD & SCALP: normocephalic and atraumatic Resp: AUSCULTATION: rales, wheezes and diminished lung sounds Cardio: COMMON NORMALS: regular rate, regular rhythm and No murmurs present (Cardio) RATE: regular rate RHYTHM: regular rhythm GI: COMMON NORMALS: Soft to palpation and No hepatosplenomegaly present AUSCULTATION: Yes normoactive bowel sounds PALPATION: Yes Soft to palpation, Yes Tenderness to palpation present (GI) Details: LLQ and RLQ, No Guarding due to palpation present (GI) and Yes No hepatosplenomegaly present Neuro: SENSORIUM/ORIENTATION: Yes oriented to person, Yes oriented to place and Yes oriented to time Course Vital Signs: Vital signs: Vital Signs Temperature 98.6 F 10/28/20 12:10 Pulse Rate 87 10/28/20 15:34 Respiratory Rate 14 10/28/20 15:34 Blood Pressure 109/72 10/28/20 15:34 Pulse Oximetry 98 10/28/20 15:34 MDM - SOB/Dyspnea MDM Narrative: Medical decision making narrative: Patient has pneumonia and some mild heart failure which is improved after diuresis in the emergency room. He also has suspicion for pyelonephritis CT was read as pyelonephritis he only has 25-40 white blood cells per high-power field. Uncertain Levaquin and Zosyn discussed with hospitalist orders have been written Lab Data: Labs: Lab Results 10/28/20 10/28/20 10/28/20 Range/Units 13:02 13:41 13:41 WBC 14.5 H (4.0-10.0) 10^3/ uL RBC 3.45 L (4.1-5.3) 10^6/u L Hgb 9.5 L (11.7-16.6) g/dL Hct 31.3 L (42.0-52.0) % MCV 90.7 (80-94) fL MCH 27.5 L (28.0-34.0) pg MCHC 30.4 (30.0-36.0) g/dL RDW 16.9 H (12.1-15.1) % Plt Count 351 (130-400) 10^3/c mm MPV 9.4 (7.4-10.4) fL Neut % (Auto) 80.3 % Lymph % (Auto) 9.2 % Ramsey % (Auto) 6.6 % Eos % (Auto) 2.3 % Baso % (Auto) 0.8 % Neut # (Auto) 11.66 H (1.8-7.7) 10^3/u L Lymph # (Auto) 1.3 (0.8-4.8) 10^3/u L Ramsey # (Auto) 1.0 H (0.2-0.9) 10^3/u L Eos # (Auto) 0.3 (0.0-0.8) 10^3/u L Baso # (Auto) 0.1 (0.0-0.1) 10^3/u L Nucleated RBC % (a uto) 0 % Nucleated RBCs # 0.0 /100WBC Specimen Type Arterial Sample Site Brachial, left ABG pH 7.37 (7.35-7.45) ABG pCO2 47.7 H (35-45) mmHg ABG pO2 349.0 H (80.0-100.0) mmH g ABG HCO3 27.6 H (22-26) mmol/L ABG O2 Saturation > 100.0 ABG Base Excess 1.9 (-2.0-2.0) mmol/ L Pop Test Pos Hematocrit 29.7 L (42-52) % Hgb O2 Saturation 98.6 (95-100) % Carboxyhemoglobin 0.9 (0.4-20.1) %THgb Methemoglobin 1.1 (0.4-1.5) % Total Hemoglobin 9.7 L (14-18) g/dL Sodium 139.0 137 (131-143) mmol/L Potassium 4.7 4.6 (3.5-5.0) mmol/L Glucose 250.0 H 226 H (70-115) mg/dL Ionized Calcium 1.2 (1.1-1.4) mmol/L O2 Delivery Device Nrb O2 Liters/Min 9.0 % Occupational Therapist Assistant ID Ed Chloride 101 (98-107) mmol/L Carbon Dioxide 26 (22-29) mmol/L Anion Gap 14.6 (5-19) BUN 53 H (8-23) mg/dL Creatinine 2.0 H (0.7-1.2) mg/dL GFR Calculation 33.8 L (90-130) mL/min Calculated Osmolal ity 305 H (285-295) mOsm/k g Lactic Acid (0.5-2.2) mmol/L Calcium 8.8 (8.5-10.5) mg/dL Magnesium 2.2 (1.7-2.3) mg/dL Total Bilirubin 0.2 (0.15-1.2) mg/dL AST 11 (0-40) U/L ALT 12 (0-41) U/L Alkaline Phosphata se 104 (40-130) IU/L Troponin T Baselin e (0-15) ng/L Troponin T 120 Min circle (0-15) ng/L Delta Troponin T (0-10) ABS# NT-Pro-B Natriuret Pep 7533 H (0-125) pg/mL Total Protein 6.7 (6.6-8.7) g/dL Albumin 3.4 L (3.5-5.2) g/dL Globulin 3.3 (1.3-4.6) g/dL Lipase 7 L (13-60) U/L Urine Color (Yellow) Urine Appearance (CLEAR) Urine pH (5-7) Ur Specific Gravit y (1.005-1.030) Urine Protein (Negative) Urine Glucose (UA) (Normal) Urine Ketones (Negative) Urine Blood (Negative) Urine Nitrate (Negative) Urine Bilirubin (Negative) Urine Urobilinogen (Negative) mg/dL Ur Leukocyte Erlinda ase (Negative) Urine RBC (0-2) /hpf Urine WBC (0-5) /hpf Ur Squamous Epith Cells (0-5) /hpf Amorphous Sediment Urine Bacteria (NONE) /hpf 10/28/20 10/28/20 10/28/20 Range/Units 13:41 13:41 14:00 WBC (4.0-10.0) 10^3/ uL RBC (4.1-5.3) 10^6/u L Hgb (11.7-16.6) g/dL Hct (42.0-52.0) % MCV (80-94) fL MCH (28.0-34.0) pg MCHC (30.0-36.0) g/dL RDW (12.1-15.1) % Plt Count (130-400) 10^3/c mm MPV (7.4-10.4) fL Neut % (Auto) % Lymph % (Auto) % Ramsey % (Auto) % Eos % (Auto) % Baso % (Auto) % Neut # (Auto) (1.8-7.7) 10^3/u L Lymph # (Auto) (0.8-4.8) 10^3/u L Ramsey # (Auto) (0.2-0.9) 10^3/u L Eos # (Auto) (0.0-0.8) 10^3/u L Baso # (Auto) (0.0-0.1) 10^3/u L Nucleated RBC % (a uto) % Nucleated RBCs # /100WBC Specimen Type Sample Site ABG pH (7.35-7.45) ABG pCO2 (35-45) mmHg ABG pO2 (80.0-100.0) mmH g ABG HCO3 (22-26) mmol/L ABG O2 Saturation ABG Base Excess (-2.0-2.0) mmol/ L Pop Test Hematocrit (42-52) % Hgb O2 Saturation (95-100) % Carboxyhemoglobin (0.4-20.1) %THgb Methemoglobin (0.4-1.5) % Total Hemoglobin (14-18) g/dL Sodium (131-143) mmol/L Potassium (3.5-5.0) mmol/L Glucose (70-115) mg/dL Ionized Calcium (1.1-1.4) mmol/L O2 Delivery Device O2 Liters/Min % Occupational Therapist Assistant ID Chloride (98-107) mmol/L Carbon Dioxide (22-29) mmol/L Anion Gap (5-19) BUN (8-23) mg/dL Creatinine (0.7-1.2) mg/dL GFR Calculation (90-130) mL/min Calculated Osmolal ity (285-295) mOsm/k g Lactic Acid 1.2 (0.5-2.2) mmol/L Calcium (8.5-10.5) mg/dL Magnesium (1.7-2.3) mg/dL Total Bilirubin (0.15-1.2) mg/dL AST (0-40) U/L ALT (0-41) U/L Alkaline Phosphata se (40-130) IU/L Troponin T Baselin e 78 H (0-15) ng/L Troponin T 120 Min circle (0-15) ng/L Delta Troponin T (0-10) ABS# NT-Pro-B Natriuret Pep (0-125) pg/mL Total Protein (6.6-8.7) g/dL Albumin (3.5-5.2) g/dL Globulin (1.3-4.6) g/dL Lipase (13-60) U/L Urine Color Straw (Yellow) Urine Appearance Clear (CLEAR) Urine pH 5 (5-7) Ur Specific Gravit y 1.015 (1.005-1.030) Urine Protein Neg (Negative) Urine Glucose (UA) Norm (Normal) Urine Ketones Negative (Negative) Urine Blood Neg (Negative) Urine Nitrate Negative (Negative) Urine Bilirubin Neg (Negative) Urine Urobilinogen Norm (Negative) mg/dL Ur Leukocyte Erlinda ase Trace H (Negative) Urine RBC 0-4 H (0-2) /hpf Urine WBC 25-40 H (0-5) /hpf Ur Squamous Epith Cells 0-4 H (0-5) /hpf Amorphous Sediment Not Reportable Urine Bacteria 1+ H (NONE) /hpf 10/28/20 Range/Units 15:34 WBC (4.0-10.0) 10^3/ uL RBC (4.1-5.3) 10^6/u L Hgb (11.7-16.6) g/dL Hct (42.0-52.0) % MCV (80-94) fL MCH (28.0-34.0) pg MCHC (30.0-36.0) g/dL RDW (12.1-15.1) % Plt Count (130-400) 10^3/c mm MPV (7.4-10.4) fL Neut % (Auto) % Lymph % (Auto) % Ramsey % (Auto) % Eos % (Auto) % Baso % (Auto) % Neut # (Auto) (1.8-7.7) 10^3/u L Lymph # (Auto) (0.8-4.8) 10^3/u L Ramsey # (Auto) (0.2-0.9) 10^3/u L Eos # (Auto) (0.0-0.8) 10^3/u L Baso # (Auto) (0.0-0.1) 10^3/u L Nucleated RBC % (a uto) % Nucleated RBCs # /100WBC Specimen Type Sample Site ABG pH (7.35-7.45) ABG pCO2 (35-45) mmHg ABG pO2 (80.0-100.0) mmH g ABG HCO3 (22-26) mmol/L ABG O2 Saturation ABG Base Excess (-2.0-2.0) mmol/ L Pop Test Hematocrit (42-52) % Hgb O2 Saturation (95-100) % Carboxyhemoglobin (0.4-20.1) %THgb Methemoglobin (0.4-1.5) % Total Hemoglobin (14-18) g/dL Sodium (131-143) mmol/L Potassium (3.5-5.0) mmol/L Glucose (70-115) mg/dL Ionized Calcium (1.1-1.4) mmol/L O2 Delivery Device O2 Liters/Min % Occupational Therapist Assistant ID Chloride (98-107) mmol/L Carbon Dioxide (22-29) mmol/L Anion Gap (5-19) BUN (8-23) mg/dL Creatinine (0.7-1.2) mg/dL GFR Calculation (90-130) mL/min Calculated Osmolal ity (285-295) mOsm/k g Lactic Acid (0.5-2.2) mmol/L Calcium (8.5-10.5) mg/dL Magnesium (1.7-2.3) mg/dL Total Bilirubin (0.15-1.2) mg/dL AST (0-40) U/L ALT (0-41) U/L Alkaline Phosphata se (40-130) IU/L Troponin T Baselin e (0-15) ng/L Troponin T 120 Min circle 75.10 H (0-15) ng/L Delta Troponin T -2.90 L (0-10) ABS# NT-Pro-B Natriuret Pep (0-125) pg/mL Total Protein (6.6-8.7) g/dL Albumin (3.5-5.2) g/dL Globulin (1.3-4.6) g/dL Lipase (13-60) U/L Urine Color (Yellow) Urine Appearance (CLEAR) Urine pH (5-7) Ur Specific Gravit y (1.005-1.030) Urine Protein (Negative) Urine Glucose (UA) (Normal) Urine Ketones (Negative) Urine Blood (Negative) Urine Nitrate (Negative) Urine Bilirubin (Negative) Urine Urobilinogen (Negative) mg/dL Ur Leukocyte Erlinda ase (Negative) Urine RBC (0-2) /hpf Urine WBC (0-5) /hpf Ur Squamous Epith Cells (0-5) /hpf Amorphous Sediment Urine Bacteria (NONE) /hpf Discharge Plan Discharge Patient Disposition: Home Clinical Impression: Pneumonia, Type 2 diabetes mellitus, Hypertension, Congestive heart failure, Acute pyelonephritis Condition: Stable Coding Level of Care Code ED Hydraulic Press Tender for g Fwd Exam Detailed
[2020-10-28 13:09] LABS: ABG PCO2 47.7 mmHg (35-45); Arterial Blood Gas Hematocrit 29.7 % (42-52); Blood Gas Allen Test Pos; Blood Gas Sample Type Arterial; Carboxyhemoglobin 0.9 %THgb (0.4-20.1); HGB O2 Sat 98.6 % (95-100); Ionized Calcium Level - ABG 1.2 mmol/L (1.1-1.4); Methemoglobin 1.1 % (0.4-1.5); Oxygen Saturation ABG > 100.0; Potassium Level - ABG 4.7 mmol/L (3.5-5.0); Total Hemoglobin 9.7 g/dL (14-18)
[2020-10-28 13:11] LABS: Blood Gas Operator Identificat ED; Blood Gas Sample Site Brachial, left; Oxygen Device NRB
[2020-10-28 13:13] LABS: ABG PH Result 7.37 (7.35-7.45); Base Excess ABG 1.9 mmol/L (-2.0-2.0); HCO3 ABG 27.6 mmol/L (22-26)
[2020-10-28] MEDS: FUROsemide 10 mg/mL SDV 10mL 60 MG IVP (13:20)
[2020-10-28 13:57] LABS: Basophils # 0.1 10^3/uL (0.0-0.1); Basophils % 0.8 %; Eosinophils # 0.3 10^3/uL (0.0-0.8); Eosinophils % 2.3 %; Hematocrit 31.3 % (42.0-52.0); Hemoglobin 9.5 g/dL (11.7-16.6); Lymphocytes # 1.3 10^3/uL (0.8-4.8); Lymphocytes % 9.2 %; Mean Corpuscular HGB Conc 30.4 g/dL (30.0-36.0); Mean Corpuscular Hemoglobin 27.5 pg (28.0-34.0); Mean Corpuscular Volume 90.7 fL (80-94); Mean Platelet Volume 9.4 fL (7.4-10.4); Monocytes % 6.6 %; Neutrophils # 11.66 10^3/uL (1.8-7.7); Neutrophils % 80.3 %; Nucleated Red Blood Cells % 0 %; Platelet Count 351 10^3/cmm (130-400); Red Blood Count 3.45 10^6/uL (4.1-5.3); Red Cell Distribution Width 16.9 % (12.1-15.1); White Blood Count 14.5 10^3/uL (4.0-10.0)
[2020-10-28 14:05] LABS: Lactic Sepsis W/Reflex 1.2 mmol/L (0.5-2.2)
[2020-10-28 14:11] LABS: Troponin(5th) Baseline 78 ng/L (0-15)
[2020-10-28 14:13] LABS: Add Urine Microscopic? YES; Bilirubin Urine Neg (Negative); Blood Urine Neg (Negative); Glucose Urine UA Norm (Normal); Ketones Urine Negative (Negative); Leukocyte Esterase Urine Trace (Negative); Nitrate Urine Negative (Negative); Protein Urine Neg (Negative); Specific Gravity, Urine 1.015 (1.005-1.030); Urine Appearance Clear (CLEAR); Urine Color Straw (Yellow); Urobilinogen Urine Norm (Negative); pH Urine 5 (5-7)
[2020-10-28 14:19] LABS: Add Urine Culture? Yes; Bacteria Urine 1+ /hpf; RBC Urine 0-4 /hpf (0-2); Squamous Epithelial Cell Urine 0-4 /hpf (0-5); WBC Urine 25-40 /hpf (0-5)
[2020-10-28 14:20] LABS: Alanine Aminotransferase 12 U/L (0-41); Albumin Level 3.4 g/dL (3.5-5.2); Alkaline Phosphatase 104 IU/L (40-130); Anion Gap 14.6 (5-19); Aspartate Amino Transferase 11 U/L (0-40); Blood Urea Nitrogen 53 mg/dL (8-23); Calcium 8.8 mg/dL (8.5-10.5); Carbon Dioxide 26 mmol/L (22-29); Chloride 101 mmol/L (98-107); Globulin 3.3 g/dL (1.3-4.6); Glomerular Filtration Rate 33.8 mL/min (90-130); Glucose 226 mg/dL (65-115); Lipase 7 U/L (13-60); Magnesium 2.2 mg/dL (1.7-2.3); NT Pro B Type Natriuretic Pept 7533 pg/mL (0-125); Osmolality Calculated 305 mOsm/kg (285-295); Potassium 4.6 mmol/L (3.5-5.1); Sodium 137 mmol/L (136-145); Total Bilirubin 0.2 mg/dL (0.15-1.2); Total Protein 6.7 g/dL (6.6-8.7)
[2020-10-28 14:23] LABS: Creatinine Clr Calc Pharmacy 36.9814
--- NOTE | 2020-10-28 14:27 | PC.NURSE ---
EKG done at 1420 and shown to ER doctor
--- NOTE | 2020-10-28 14:28 | PC.NURSE ---
pt to CT scan by stretcher with tech
[2020-10-28] MEDS: iodixanol 320 mg/mL 100mL Btl IV (14:33)
--- NOTE | 2020-10-28 14:39 | ECG_ITS ---
[facility] Test Date: 2020-10-28 Pat Name: Tashi Cole Department: Room: Gender: Male Sound Mixer: : 1955 Requested By: Will Connor Order Number: [id number] Rohini MD: Greg Strong M.D. Measurements Intervals [place] Rate: 86 P: 54 RI: 178 QRS: 30 QRSD: 134 T: 82 QT: 398 QTc: 476 Interpretive Statements SINUS RHYTHM WITH OCCASIONAL VENTRICULAR PREMATURE COMPLEXES INTRAVENTRICULAR CONDUCTION DELAY [130+ ms QRS DURATION] INFERIOR MYOCARDIAL INFARCTION , PROBABLY OLD [40+ ms Q WAVE AND/OR ST/T ABNORMALITY IN II/aVF] Compared to ECG 10/28/2020 12:20:25 Ventricular premature complex(es) now present Intraventricular conduction delay now present Myocardial infarct finding still present Electronically Signed On 10-29-2020 11:08:57 COTTON WRINGER by Greg Strong M.D. [id number]
[2020-10-28] MEDS: piperacillin-tazobactam 3.375 GM in sodium chloride 0.9% (plus) 50 ML IV (16:12)
--- NOTE | 2020-10-28 17:07 | PM.HP ---
Providers/Chief Complaint Admitting Physician: Twin White MD Primary Care Provider: Hiram Black DO Chief Complaint: RESPIRATORY DISTRESS History of Present Illness 64 year old male with a past medical history of systolic and diastolic heart failure, EF 31%, status post AICD, advanced COPD, COVID survivor, GRACIA, on CPAP, CKD stage II-III, diabetes mellitus, bilateral BKA amputee,came in with c/o worsening SOB going on for the few days as well as abdominal pain.He was recently diagnosed with Covid and is currently outside of the isolation window he was started on Levaquin for cough and shortness of breath.Upon arrival in the ER he was requiring close to 8Ls oxygen via face mask to maintain optimum saturation. He was worked up for above mentioned complaint: Xray chest : Cardiomegaly with pulmonary vascular congestion. Right pleural effusion with possible right lower lobe consolidation. CT abdomen pelvis w con: Small bilateral pleural effusions with progressive areas of consolidation at the lung bases which is probably pneumonia. Variable enhancement within each kidney, RIGHT greater than LEFT. Suspicious for pyelonephritis/UTI. EKG: Sinus Rhythm ABG :Ph: 7.37, PCO2: 47,PO2; 349, FIO2: 9Ls Troponin: 78, 2H: 75, 2H D: -2.90, 6H: 77 , 6H D: -0.89 Pro BNP: 7533 Urine analysis : Dirty Cultures were Drawn ECA Medications: 60 i.v Lasix * 1 dose, Levofloxacin 750 mg I.V * 1 dose as well as Zosyn 3.375 gm I.V * 1 Dose Review of Systems Const: Denies: fever(s), chills or body aches Card: Denies: orthopnea GI: Denies: nausea or vomiting : Denies: flank pain or difficulty urinating Musc: Denies: back pain, extremity pain or extremity swelling Neuro: Denies: headache(s) Medications/Allergies Home Medications Medication Instructions Recorded Confirmed Last Taken Type acetaminophen 650 mg PO Q4H PRN #0 10/19/19 10/28/20 12/24/19 18:00 History aspirin 81 mg PO DAILY@09 10/19/19 10/28/20 10/28/20 History bisacodyl 10 mg WI DAILY PRN 10/19/19 10/28/20 12/23/19 08:00 History 10 mg budesonide 2 ml INHALATION BID@10/19/19 10/28/20 10/28/20 History bupropion HCl [Wellbutrin SR] 150 mg PO Q12H 10/19/19 10/28/20 10/28/20 History carvedilol 3.125 mg PO BID@10/19/19 10/28/20 10/28/20 History clopidogrel [Plavix] 75 mg PO DAILY@10/19/19 10/28/20 10/28/20 History insulin lispro [Humalog KwikPen See Rx Instructions .ROUTE .COMPLEX 10/19/19 10/28/20 07/26/20 History Insulin] loratadine 10 mg PO DAILY@10/19/19 10/28/20 10/28/20 History magnesium L-lactate [Magtab] 84 mg PO DAILY@10/19/19 10/28/20 10/27/20 History nitroglycerin 0.4 mg SUBLINGUAL Q5M PRN 10/19/19 10/28/20 Unknown History rosuvastatin [Crestor] 20 mg PO DAILY@10/19/19 10/28/20 10/27/20 History tamsulosin 0.4 mg PO DAILY@209910/19/19 10/28/20 10/27/20 History Hair,Skin and Nails 1 tab PO DAILY@12/15/19 10/28/20 10/28/20 History Mucinex DM 1 tab PO BID@12/15/19 10/28/20 10/28/20 History magnesium hydroxide [Milk of 30 ml PO DAILY PRN 12/15/19 10/28/20 Unknown History Magnesia] ondansetron HCl [Zofran] 4 mg PO Q4H PRN 12/15/19 10/28/20 07/26/20 History albuterol sulfate 2.5 mg INHALATION Q4H PRN 03/28/20 10/28/20 09/07/20 History citalopram 20 mg PO DAILY@07/26/20 10/28/20 10/28/20 History pantoprazole 40 mg PO BID@07/26/20 10/28/20 10/28/20 History polyethylene glycol 3350 [Miralax] 17 g PO DAILY@08 07/26/20 10/28/20 10/27/20 History Glucagon (HCl) Emergency Kit 1 mg SUBCUT Q20M PRN 09/07/20 10/28/20 Unknown History TwoCal HN 1 ea PO BID@09/07/20 10/28/20 10/28/20 History ipratropium-albuterol 3 ml INHALATION BID@,18 PRN 09/07/20 10/28/20 Unknown History amino acids-protein hydrolys 1 ea PO BID@10/28/20 10/28/20 10/28/20 History [Pro-Stat AWC] ferrous sulfate 325 mg PO BID@,10/28/20 10/28/20 10/28/20 History furosemide [Lasix] 40 mg PO DAILY@0900 10/28/20 10/28/20 10/28/20 History insulin glargine [Lantus U-100 18 unit SUBCUT DAILY 10/28/20 10/28/20 Unknown History Insulin] sucralfate 1 g PO BID@,10/28/20 10/28/20 10/28/20 History Allergies Allergy/AdvReac Type Severity Reaction Status Date / Time tramadol Allergy ADR-Vomitin Verified 08/29/20 09:56 g PFSH Acute PFSH: Medical History (Updated 10/28/20 @ 22:13 by Twin White MD) Abnormal cystoscopy Anxiety BPH (benign prostatic hyperplasia) Chronic systolic CHF (congestive heart failure) CKD stage 3 secondary to diabetes COPD (chronic obstructive pulmonary disease) Coronary artery disease Depression Dysphagia History of urinary retention Hypertension Peripheral vascular disease Type 2 diabetes mellitus Urgency incontinence Surgical History Coronary angioplasty status History of carpal tunnel surgery History of hip surgery S/P bilateral BKA (below knee amputation) S/P right coronary artery (RCA) stent placement Family History Other CAD (coronary artery disease) Diabetes Social History Smoking and tobacco status: current every day smoker cigarettes Packs smoked per day: 0.5 Years cigarettes smoked: 59 Second hand smoke exposure: Yes Alcohol intake: never Lives independently: No Housing: Longterm Marital status: Current occupational status: retired and disabled History of recent travel: No Current gender identity: Male Vitals/I&O/Wt Last Vital Signs Temp 98.6 F 10/28/20 12:10 Pulse 87 10/28/20 15:34 Resp 14 10/28/20 15:34 BP 109/72 10/28/20 15:34 Pulse Ox 98 10/28/20 15:34 Weight last 48 hrs Weight 72.575 kg Physical Exam Const: COMMON NORMALS: patient oriented x3 HENMT: COMMON NORMALS: normocephalic and atraumatic HEAD & SCALP: normocephalic and atraumatic Chest: CHEST: Yes Symmetrical chest wall rise Resp: COMMON NORMALS: clear to auscultation bilaterally AUSCULTATION: clear to auscultation bilaterally Cardio: COMMON NORMALS: regular rate, regular rhythm, S1 normal heart sound present, S2 normal heart sound present, No gallops present (Cardio), No murmurs present (Cardio), No rub (Cardio) and Peripheral pulses 2+ throughout RATE: regular rate RHYTHM: regular rhythm HEART SOUNDS: S1 normal heart sound present and S2 normal heart sound present PERIPHERAL PULSES: Peripheral pulses 2+ throughout GI: COMMON NORMALS: Normal to inspection, nondistended, normoactive bowel sounds present, Soft to palpation, non-tender, No hepatosplenomegaly present and no masses AUSCULTATION: Yes normoactive bowel sounds PALPATION: Yes Soft to palpation and Yes No hepatosplenomegaly present RECTAL EXAM: Yes deferred : COMMON NORMALS: Yes no CVA tenderness BLADDER/KIDNEY EXAM: Yes no CVA tenderness Back/Pelvis: COMMON NORMALS: no CVA tenderness Extremity: NARRATIVE EXTREMITY EXAM: Bilateral below-knee amputations Neuro: COMMON NORMALS: patient oriented x3 Data : 10/28/20 13:41 10/28/20 13:41 Micro: Microbiology 10/28/20 15:34 Blood Culture - Preliminary Blood SPECIMEN COLLECTED 10/28/20 13:41 Blood Culture - Preliminary Blood SPECIMEN COLLECTED A&P Assessment and plan (1) Acute respiratory failure with hypoxia: Likely 2/2 to PNA/HFrEF Exacerbation Xray chest ABG Blood Culture Sputum Culture Urine Culture Continue Ceftriaxone 1 gm I.V Q24 H for now Lasix 40 mg I.V daily I/O Charting Daily weight. Status: Acute (2) Pneumonia: Status: Acute (3) Acute pyelonephritis: Status: Acute (4) UTI (urinary tract infection): Status: Acute (5) Chronic systolic CHF (congestive heart failure): Status: Acute (6) Elevated troponin: Status: Acute (7) CKD stage 3 secondary to diabetes: Status: Chronic (8) CAD (coronary artery disease): Status: Acute (9) COPD (chronic obstructive pulmonary disease): Status: Chronic (10) S/P bilateral BKA (below knee amputation): Status: Chronic (11) COVID-19: Status: Acute Attestations Medical Necessity Statement*: Patient needs to be in hospital for the management of PNA/UTI/Ac Pyelonephritis. Coding Level of Care Code Acute Fruit Packer Face And Fill for [facility] Diagnoses Acute respiratory failure with hypoxia J96.01 Pneumonia J18.9 Acute pyelonephritis N10 UTI (urinary tract infection) N39.0 Chronic systolic CHF (congestive heart failure) I50.22 Elevated troponin R77.8 CKD stage 3 secondary to diabetes E11.22; N18.3 CAD (coronary artery disease) I25.10 COPD (chronic obstructive pulmonary disease) J44.9 S/P bilateral BKA (below knee amputation) Z89.512; Z89.511 COVID-19 U07.1
[2020-10-28] MEDS: levofloxacin-dextrose 5 % 750 MG/150 ML PREMIX 100 MG IV (17:13)
[2020-10-28] MEDS: ferrous sulfate EC 325 mg Tablet PO (18:32)
[2020-10-28] MEDS: pantoprazole DR 40 mg Tablet PO (18:32)
--- NOTE | 2020-10-28 18:39 | ECG_ITS ---
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 Measurements Intervals [place] Rate: 87 P: 56 [place]: 179 QRS: 19 QRSD: 138 T: 109 QT: 399 QTc: 481 Interpretive Statements SINUS RHYTHM INTRAVENTRICULAR CONDUCTION DELAY [130+ ms QRS DURATION] INFERIOR MYOCARDIAL INFARCTION [40+ ms Q WAVE AND/OR ST/T ABNORMALITY IN II/aVF], PROBABLY OLD Compared to ECG 10/28/2020 14:19:24 Ventricular premature complex(es) no longer present Myocardial infarct finding still present Electronically Signed On 10-29-2020 11:02:14 SEWING INSPECTOR by Greg Strong M.D. [id number]
[2020-10-28] MEDS: budesonide 0.5 mg/2 mL Neb INHALATION (19:42)
[2020-10-28 20:52] LABS: Troponin 5 6HR 77.11 ng/L (0-15)
[2020-10-28 20:55] LABS: Troponin 5 6HR Delta -0.89 ng/L (0-12)
[2020-10-28] MEDS: buPROPion SR (12 HR) 150 mg Tablet PO (21:49)
[2020-10-28] MEDS: atorvastatin 40 mg Tablet 80 MG PO (21:49)
[2020-10-28] MEDS: heparin 5,000 unit/mL INJ 1 mL 5000 UNIT SUBCUT (21:49)
[2020-10-28] MEDS: tamsulosin 0.4 mg Capsule PO (21:49)
[2020-10-28] MEDS: carvedilol 3.125 mg Tablet PO (21:50)
[2020-10-29] VITALS (12 sets, daily range): BP systolic 98–132; BP diastolic 56–82; PULSE 61–95; RESP 17–22; TEMP 36.3–36.9; O2SAT 85–100
[2020-10-29 05:42] LABS: Basophils # 0.1 10^3/uL (0.0-0.1); Basophils % 1.1 %; Eosinophils # 0.5 10^3/uL (0.0-0.8); Eosinophils % 3.8 %; Hemoglobin 8.8 g/dL (11.7-16.6); Lymphocytes # 1.8 10^3/uL (0.8-4.8); Lymphocytes % 14.7 %; Mean Corpuscular HGB Conc 30.3 g/dL (30.0-36.0); Mean Corpuscular Hemoglobin 27.2 pg (28.0-34.0); Mean Corpuscular Volume 89.8 fL (80-94); Mean Platelet Volume 9.7 fL (7.4-10.4); Monocytes # 1.2 10^3/uL (0.2-0.9); Monocytes % 9.6 %; Neutrophils # 8.52 10^3/uL (1.8-7.7); Nucleated Red Blood Cells % 0 %; Platelet Count 343 10^3/cmm (130-400); Red Blood Count 3.23 10^6/uL (4.1-5.3); Red Cell Distribution Width 16.6 % (12.1-15.1); White Blood Count 12.2 10^3/uL (4.0-10.0)
[2020-10-29] MEDS: pantoprazole DR 40 mg Tablet PO ×2 (05:51→17:56)
[2020-10-29 06:07] LABS: Procalcitonin 0.09 ng/mL (0-0.5)
[2020-10-29 06:18] LABS: Alanine Aminotransferase 11 U/L (0-41); Albumin Level 3.3 g/dL (3.5-5.2); Alkaline Phosphatase 101 IU/L (40-130); Anion Gap 14.3 (5-19); Aspartate Amino Transferase 11 U/L (0-40); Blood Urea Nitrogen 48 mg/dL (8-23); Calcium 8.9 mg/dL (8.5-10.5); Carbon Dioxide 27 mmol/L (22-29); Chloride 102 mmol/L (98-107); Globulin 3.3 g/dL (1.3-4.6); Glomerular Filtration Rate 38.2 mL/min (90-130); Glucose 208 mg/dL (65-115); Osmolality Calculated 307 mOsm/kg (285-295); Potassium 4.3 mmol/L (3.5-5.1); Sodium 139 mmol/L (136-145); Total Bilirubin 0.3 mg/dL (0.15-1.2); Total Protein 6.6 g/dL (6.6-8.7)
[2020-10-29] MEDS: ferrous sulfate EC 325 mg Tablet PO ×2 (06:35→17:56)
[2020-10-29] MEDS: ipratropium-albuterol 3 mL Neb INHALATION ×2 (08:49→21:10)
[2020-10-29] MEDS: budesonide 0.5 mg/2 mL Neb INHALATION ×2 (08:49→21:10)
[2020-10-29] MEDS: clopidogrel 75 mg Tablet PO (09:42)
[2020-10-29] MEDS: heparin 5,000 unit/mL INJ 1 mL 5000 UNIT SUBCUT ×2 (09:42→20:19)
[2020-10-29] MEDS: buPROPion SR (12 HR) 150 mg Tablet PO ×2 (09:42→20:19)
[2020-10-29] MEDS: aspirin 81 mg EC Tablet PO (09:42)
[2020-10-29] MEDS: citalopram 20 mg Tablet PO (09:43)
[2020-10-29] MEDS: carvedilol 3.125 mg Tablet PO ×2 (09:44→20:18)
[2020-10-29] MEDS: polyethylene glycol 3350 Pkt 17 gm PO (09:45)
--- NOTE | 2020-10-29 11:28 | P.PN_ITS ---
Subjective Subjective: Interval history: was seen and examined this morning.He says that his SOB has improved. He is not complaining of any pain in abdomen. He has remained afebrile, his other vitals and labs have been reviewed. Medications: Reviewed: Yes Vitals/I&O/Wt Last Vital Signs Temp 97.7 F 10/29/20 11:19 Pulse 87 10/29/20 11:19 Resp 18 10/29/20 11:19 BP 114/75 10/29/20 11:19 Pulse Ox 91 10/29/20 11:19 10/28/20 10/29/20 10/29/20 22:59 06:59 14:59 Intake Total 200 / 200 220 / 220 Balance 200 / 200 220 / 220 Weight last 48 hrs Weight 72.575 kg Physical Exam Const: COMMON NORMALS: patient oriented x3 HENMT: COMMON NORMALS: normocephalic and atraumatic HEAD & SCALP: normocephalic and atraumatic Chest: CHEST: Yes Symmetrical chest wall rise Resp: COMMON NORMALS: clear to auscultation bilaterally AUSCULTATION: clear to auscultation bilaterally Cardio: COMMON NORMALS: regular rate, regular rhythm, S1 normal heart sound present, S2 normal heart sound present, No gallops present (Cardio), No murmurs present (Cardio), No rub (Cardio) and Peripheral pulses 2+ throughout RATE: regular rate RHYTHM: regular rhythm HEART SOUNDS: S1 normal heart sound present and S2 normal heart sound present PERIPHERAL PULSES: Peripheral pulses 2+ throughout GI: COMMON NORMALS: Normal to inspection, nondistended, normoactive bowel sounds present, Soft to palpation, non-tender, No hepatosplenomegaly present and no masses AUSCULTATION: Yes normoactive bowel sounds PALPATION: Yes Soft to palpation and Yes No hepatosplenomegaly present RECTAL EXAM: Yes deferred Extremity: NARRATIVE EXTREMITY EXAM: Bilateral below-knee amputations Neuro: COMMON NORMALS: patient oriented x3 Data : 10/29/20 05:11 10/29/20 05:11 Micro: Microbiology 10/28/20 06:38 Gram Stain - Final Sputum - Expectorated Sputum 10/28/20 15:34 Blood Culture - Preliminary Blood SPECIMEN COLLECTED 10/28/20 13:41 Blood Culture - Preliminary Blood SPECIMEN COLLECTED A&P Assessment and plan (1) Acute respiratory failure with hypoxia: Likely 2/2 to PNA/HFrEF Exacerbation Xray chest ABG Blood Culture Sputum Culture Urine Culture Continue Ceftriaxone 1 gm I.V Q24 H for now Lasix 40 mg I.V daily I/O Charting Daily weight. Status: Acute (2) Pneumonia: Status: Acute (3) Acute pyelonephritis: Status: Acute (4) UTI (urinary tract infection): Status: Acute (5) Chronic systolic CHF (congestive heart failure): Status: Acute (6) Elevated troponin: Status: Acute (7) CKD stage 3 secondary to diabetes: Status: Chronic (8) CAD (coronary artery disease): Status: Acute (9) COPD (chronic obstructive pulmonary disease): Status: Chronic (10) S/P bilateral BKA (below knee amputation): Status: Chronic (11) COVID-19: Status: Acute Attestations Medical Necessity Statement*: Patient needs to be in hospital for the management of R/F/UTI/Possible pyelonephritis Coding Level of Care Code Acute Patented Hogshead Assembler for g Fwd Exam Detailed Diagnoses Acute respiratory failure with hypoxia J96.01 Pneumonia J18.9 Acute pyelonephritis N10 UTI (urinary tract infection) N39.0 Chronic systolic CHF (congestive heart failure) I50.22 Elevated troponin R77.8 CKD stage 3 secondary to diabetes E11.22; N18.3 CAD (coronary artery disease) I25.10 COPD (chronic obstructive pulmonary disease) J44.9 S/P bilateral BKA (below knee amputation) Z89.512; Z89.511 COVID-19 U07.1
[2020-10-29 12:05] LABS: Glucose Point of Care 254 mg/dL (70-110)
[2020-10-29 17:02] LABS: Glucose Point of Care 348 mg/dL (70-110)
[2020-10-29] MEDS: FUROsemide 10 mg/mL SDV 4mL 40 MG IVP (17:55)
[2020-10-29] MEDS: atorvastatin 40 mg Tablet 80 MG PO (20:18)
[2020-10-29] MEDS: cefTRIAXone 1,000 MG in sodium chloride 0.9% (plus) 50 ML 100 MG IV (20:19)
[2020-10-29] MEDS: tamsulosin 0.4 mg Capsule PO (20:22)
[2020-10-29 20:57] LABS: Glucose Point of Care 285 mg/dL (70-110)
[2020-10-29 21:36] LABS: Glucose Point of Care 228 mg/dL (70-110)
[2020-10-30] VITALS (12 sets, daily range): BP systolic 102–127; BP diastolic 55–77; PULSE 77–92; RESP 16–20; TEMP 35.9–36.9; O2SAT 94–100
[2020-10-30 05:03] LABS: Basophils # 0.1 10^3/uL (0.0-0.1); Basophils % 1.1 %; Eosinophils # 0.5 10^3/uL (0.0-0.8); Eosinophils % 4.8 %; Hematocrit 27.6 % (42.0-52.0); Hemoglobin 8.4 g/dL (11.7-16.6); Lymphocytes # 2.1 10^3/uL (0.8-4.8); Lymphocytes % 22.1 %; Mean Corpuscular HGB Conc 30.4 g/dL (30.0-36.0); Mean Corpuscular Volume 88.7 fL (80-94); Mean Platelet Volume 9.8 fL (7.4-10.4); Monocytes # 1.1 10^3/uL (0.2-0.9); Monocytes % 11.4 %; Neutrophils # 5.78 10^3/uL (1.8-7.7); Neutrophils % 59.8 %; Nucleated Red Blood Cells % 0 %; Platelet Count 350 10^3/cmm (130-400); Red Blood Count 3.11 10^6/uL (4.1-5.3); Red Cell Distribution Width 16.4 % (12.1-15.1); White Blood Count 9.7 10^3/uL (4.0-10.0)
[2020-10-30 05:22] LABS: Alanine Aminotransferase 9 U/L (0-41); Albumin Level 3.3 g/dL (3.5-5.2); Alkaline Phosphatase 93 IU/L (40-130); Anion Gap 15.2 (5-19); Aspartate Amino Transferase 8 U/L (0-40); Blood Urea Nitrogen 51 mg/dL (8-23); Calcium 9.1 mg/dL (8.5-10.5); Carbon Dioxide 27 mmol/L (22-29); Chloride 100 mmol/L (98-107); Globulin 3.2 g/dL (1.3-4.6); Glucose 64 mg/dL (65-115); Magnesium 2.1 mg/dL (1.7-2.3); Osmolality Calculated 298 mOsm/kg (285-295); Potassium 4.2 mmol/L (3.5-5.1); Sodium 138 mmol/L (136-145); Total Bilirubin 0.3 mg/dL (0.15-1.2); Total Protein 6.5 g/dL (6.6-8.7)
[2020-10-30] MEDS: pantoprazole DR 40 mg Tablet PO ×2 (06:13→18:35)
[2020-10-30] MEDS: ferrous sulfate EC 325 mg Tablet PO ×2 (06:13→18:35)
[2020-10-30 07:00] LABS: Glucose Point of Care 105 mg/dL (70-110)
[2020-10-30] MEDS: ipratropium-albuterol 3 mL Neb INHALATION ×2 (08:25→20:44)
[2020-10-30] MEDS: budesonide 0.5 mg/2 mL Neb INHALATION ×2 (08:26→20:44)
[2020-10-30] MEDS: carvedilol 3.125 mg Tablet PO ×2 (08:50→21:23)
[2020-10-30] MEDS: clopidogrel 75 mg Tablet PO (08:50)
[2020-10-30] MEDS: heparin 5,000 unit/mL INJ 1 mL 5000 UNIT SUBCUT ×2 (08:50→21:23)
[2020-10-30] MEDS: buPROPion SR (12 HR) 150 mg Tablet PO ×2 (08:50→21:23)
[2020-10-30] MEDS: citalopram 20 mg Tablet PO (08:50)
[2020-10-30] MEDS: aspirin 81 mg EC Tablet PO (08:50)
--- NOTE | 2020-10-30 11:05 | P.PN_ITS ---
Subjective Subjective: Interval history: was seen resting comfortably in bed. His vitals and labs have been reviewed. Medications: Reviewed: Yes Vitals/I&O/Wt Last Vital Signs Temp 96.6 F L 10/30/20 07:55 Pulse 92 10/30/20 08:28 Resp 18 10/30/20 08:28 BP 127/74 10/30/20 07:55 Pulse Ox 94 10/30/20 08:28 10/29/20 10/30/20 10/30/20 22:59 06:59 14:59 Intake Total 440 / 900 50 / 950 240 / 240 Balance 440 / 900 50 / 950 240 / 240 Weight last 48 hrs Weight 72.575 kg Physical Exam Const: COMMON NORMALS: patient oriented x3 HENMT: COMMON NORMALS: normocephalic and atraumatic HEAD & SCALP: normocephalic and atraumatic Chest: CHEST: Yes Symmetrical chest wall rise Resp: COMMON NORMALS: clear to auscultation bilaterally AUSCULTATION: clear to auscultation bilaterally Cardio: COMMON NORMALS: regular rate, regular rhythm, S1 normal heart sound present, S2 normal heart sound present, No gallops present (Cardio), No murmurs present (Cardio), No rub (Cardio) and Peripheral pulses 2+ throughout RATE: regular rate RHYTHM: regular rhythm HEART SOUNDS: S1 normal heart sound present and S2 normal heart sound present PERIPHERAL PULSES: Peripheral pulses 2+ throughout GI: COMMON NORMALS: Normal to inspection, nondistended, normoactive bowel sounds present, Soft to palpation, non-tender, No hepatosplenomegaly present and no masses AUSCULTATION: Yes normoactive bowel sounds PALPATION: Yes Soft to palpation and Yes No hepatosplenomegaly present RECTAL EXAM: Yes deferred Extremity: NARRATIVE EXTREMITY EXAM: Bilateral below-knee amputations Neuro: COMMON NORMALS: patient oriented x3 Data : 10/30/20 04:22 10/30/20 04:22 Micro: Microbiology 10/28/20 06:38 Gram Stain - Final Sputum - Expectorated Sputum Sputum Culture - Preliminary 10/28/20 14:00 Urine Culture - Preliminary Urine,Clean Catch Staphylococcus aureus 10/28/20 15:34 Blood Culture - Preliminary Blood NEGATIVE TO DATE 10/28/20 13:41 Blood Culture - Preliminary Blood NEGATIVE TO DATE A&P Assessment and plan (1) Acute respiratory failure with hypoxia: Likely 2/ to PNA/HFrEF Xray chest: ; Right pleural effusion with possible right lower lobe consolidation. ABG: Blood Culture:NTD Sputum Culture Urine Culture:Staph.Aureus. Continue Ceftriaxone 1 gm I.V Q24 H Vancomycin ( 10/30 ) Lasix 40 mg I.V daily I/O Charting Daily weight. Status: Acute (2) Pneumonia: Status: Acute (3) Acute pyelonephritis: Urine Culture is growing Staph.Aureus. Have ordered repeat urine culture as well as MRSA PCR Status: Acute (4) UTI (urinary tract infection): Status: Acute (5) Chronic systolic CHF (congestive heart failure): Currently compensated Switched to 20 mg po lasix daily from 11/01 Status: Acute (6) Elevated troponin: Status: Acute (7) CKD stage 3 secondary to diabetes: Status: Chronic (8) CAD (coronary artery disease): Status: Acute (9) COPD (chronic obstructive pulmonary disease): Status: Chronic (10) S/P bilateral BKA (below knee amputation): Status: Chronic (11) COVID-19: Status: Acute Attestations Medical Necessity Statement*: Patient needs to be in hospital for the management of PNA/UTI Coding Level of Care Code Acute Director Of Cardiac Rehabilitation for [facility] Fwd Diagnoses Acute respiratory failure with hypoxia J96.01 Pneumonia J18.9 Acute pyelonephritis N10 UTI (urinary tract infection) N39.0 Chronic systolic CHF (congestive heart failure) I50.22 Elevated troponin R77.8 CKD stage 3 secondary to diabetes E11.22; N18.3 CAD (coronary artery disease) I25.10 COPD (chronic obstructive pulmonary disease) J44.9 S/P bilateral BKA (below knee amputation) Z89.512; Z89.511 COVID-19 U07.1
[2020-10-30 11:17] LABS: Glucose Point of Care 260 mg/dL (70-110)
[2020-10-30] MEDS: vancomycin 1,000 MG in sodium chloride 0.9% 250 ML 250 MG IV (15:22)
[2020-10-30 16:47] LABS: Glucose Point of Care 234 mg/dL (70-110)
[2020-10-30] MEDS: atorvastatin 40 mg Tablet 80 MG PO (21:23)
[2020-10-30] MEDS: cefTRIAXone 1,000 MG in sodium chloride 0.9% (plus) 50 ML 100 MG IV (21:23)
[2020-10-30] MEDS: tamsulosin 0.4 mg Capsule PO (21:23)
[2020-10-30 21:36] LABS: Glucose Point of Care 252 mg/dL (70-110)
[2020-10-31] VITALS (10 sets, daily range): BP systolic 107–129; BP diastolic 63–79; PULSE 71–88; RESP 14–19; TEMP 35.6–36.7; O2SAT 96–98
[2020-10-31 05:13] LABS: Basophils # 0.1 10^3/uL (0.0-0.1); Basophils % 0.8 %; Eosinophils # 0.4 10^3/uL (0.0-0.8); Eosinophils % 3.7 %; Hematocrit 28.2 % (42.0-52.0); Hemoglobin 8.6 g/dL (11.7-16.6); Lymphocytes % 18.3 %; Mean Corpuscular HGB Conc 30.5 g/dL (30.0-36.0); Mean Corpuscular Hemoglobin 27.7 pg (28.0-34.0); Mean Corpuscular Volume 90.7 fL (80-94); Mean Platelet Volume 9.8 fL (7.4-10.4); Monocytes # 1.1 10^3/uL (0.2-0.9); Monocytes % 10.4 %; Neutrophils # 7.04 10^3/uL (1.8-7.7); Nucleated Red Blood Cells % 0 %; Platelet Count 317 10^3/cmm (130-400); Red Blood Count 3.11 10^6/uL (4.1-5.3); Red Cell Distribution Width 16.5 % (12.1-15.1); White Blood Count 10.7 10^3/uL (4.0-10.0)
[2020-10-31 05:31] LABS: Alanine Aminotransferase 9 U/L (0-41); Albumin Level 3.1 g/dL (3.5-5.2); Alkaline Phosphatase 91 IU/L (40-130); Anion Gap 15.3 (5-19); Aspartate Amino Transferase 11 U/L (0-40); Blood Urea Nitrogen 57 mg/dL (8-23); Calcium 8.8 mg/dL (8.5-10.5); Carbon Dioxide 25 mmol/L (22-29); Chloride 100 mmol/L (98-107); Globulin 3.4 g/dL (1.3-4.6); Glomerular Filtration Rate 30.3 mL/min (90-130); Glucose 86 mg/dL (65-115); Magnesium 2.3 mg/dL (1.7-2.3); Osmolality Calculated 297 mOsm/kg (285-295); Potassium 4.3 mmol/L (3.5-5.1); Sodium 136 mmol/L (136-145); Total Bilirubin 0.2 mg/dL (0.15-1.2); Total Protein 6.5 g/dL (6.6-8.7)
[2020-10-31] MEDS: ferrous sulfate EC 325 mg Tablet PO ×2 (06:05→18:26)
[2020-10-31] MEDS: pantoprazole DR 40 mg Tablet PO ×2 (06:05→18:26)
[2020-10-31 06:41] LABS: Glucose Point of Care 81 mg/dL (70-110)
[2020-10-31 07:32] LABS: Specific Gravity, Urine 1.015 (1.005-1.030); Urine Appearance Cloudy (CLEAR); Urine Color Yellow (Yellow); pH Urine 5 (5-7)
[2020-10-31 07:33] LABS: Add Urine Culture? Yes; Add Urine Microscopic? YES; Bacteria Urine 1+ /hpf; Bilirubin Urine Neg (Negative); Blood Urine 2+ (Negative); Glucose Urine UA Norm (Normal); Ketones Urine Negative (Negative); Leukocyte Esterase Urine 2+ (Negative); Nitrate Urine Negative (Negative); Protein Urine Neg (Negative); Urobilinogen Urine Norm (Negative); WBC Urine TOO NUMEROUS TO CNT /hpf (0-5)
[2020-10-31] MEDS: budesonide 0.5 mg/2 mL Neb INHALATION (08:07)
[2020-10-31] MEDS: ipratropium-albuterol 3 mL Neb INHALATION (08:07)
[2020-10-31] MEDS: heparin 5,000 unit/mL INJ 1 mL 5000 UNIT SUBCUT ×2 (08:32→21:53)
[2020-10-31] MEDS: buPROPion SR (12 HR) 150 mg Tablet PO ×2 (08:32→20:56)
[2020-10-31] MEDS: FUROsemide 20 mg Tablet PO (08:32)
[2020-10-31] MEDS: polyethylene glycol 3350 Pkt 17 gm PO (08:32)
[2020-10-31] MEDS: citalopram 20 mg Tablet PO (08:32)
[2020-10-31] MEDS: aspirin 81 mg EC Tablet PO (08:32)
[2020-10-31] MEDS: clopidogrel 75 mg Tablet PO (08:32)
[2020-10-31] MEDS: carvedilol 3.125 mg Tablet PO ×2 (08:34→20:57)
[2020-10-31 10:44] LABS: Glucose Point of Care 306 mg/dL (70-110)
[2020-10-31] MEDS: vancomycin 1,000 MG in sodium chloride 0.9% 250 ML 250 MG IV (11:20)
--- NOTE | 2020-10-31 14:21 | PC.SOCIAL ---
IMM Update Pg.2 of IMM Updated and reviewed with patient. Copy provided.
--- NOTE | 2020-10-31 17:10 | PC.RESP ---
Smoking Cessation and Pulmonary Rehab information sent to patient.
[2020-10-31 17:16] LABS: Glucose Point of Care 306 mg/dL (70-110)
[2020-10-31 20:50] LABS: Glucose Point of Care 244 mg/dL (70-110)
[2020-10-31] MEDS: atorvastatin 40 mg Tablet 80 MG PO (20:56)
[2020-10-31] MEDS: cefTRIAXone 1,000 MG in sodium chloride 0.9% (plus) 50 ML 100 MG IV (20:57)
[2020-10-31] MEDS: tamsulosin 0.4 mg Capsule PO (20:57)
--- NOTE | 2020-10-31 22:40 | P.PN_ITS ---
Subjective Subjective: Interval history: No acute overnight events. No specific complaints this morning. Sputum and urine cx updated to reflect MRSA Medications: Reviewed: Yes Vitals/I&O/Wt Last Vital Signs Temp 97.9 F 10/31/20 19:40 Pulse 71 10/31/20 19:40 Resp 19 H 10/31/20 19:40 BP 110/67 10/31/20 19:40 Pulse Ox 96 10/31/20 19:40 10/31/20 10/31/20 10/31/20 06:59 14:59 22:59 Intake Total 240 / 1380 490 / 490 50 / 540 Balance 240 / 1380 490 / 490 50 / 540 Physical Exam Narrative: EXAM NARRATIVE: GEN: Awake, alert and oriented, no acute distress CVS: S1S2 N RS: CTA B/L Abd: Soft, nt/nd , bs+ MARKETING SALES REPRESENTATIVE: no focal neuro deficits EXT: B?L LE amputations, healed stumps Data : 10/31/20 04:34 10/31/20 04:34 Micro: Microbiology 10/31/20 14:45 Occult Blood (FIT) - Final Stool Routine Collection 10/28/20 14:00 Urine Culture - Final Urine,Clean Catch Methicillin Resis Staph Aureus 10/28/20 06:38 Gram Stain - Final Sputum - Expectorated Sputum Sputum Culture - Preliminary Staphylococcus aureus A&P Assessment and plan (1) Acute respiratory failure with hypoxia: Likely 2/2 to PNA/HFrEF Xray chest: 2 /5 ; Right pleural effusion with possible right lower lobe consolidation. ABG: Blood Culture:NTD Sputum Culture: MRSA Urine Culture:MR Staph.Aureus. Continue Ceftriaxone 1 gm I.V Q24 H Vancomycin ( 10/30 ) Lasix 40 mg I.V daily I/O Charting Daily weight. Status: Acute (2) Pneumonia: Status: Acute (3) Acute pyelonephritis: Urine Culture is growing Staph.Aureus. Have ordered repeat urine culture as well as MRSA PCR Status: Acute (4) UTI (urinary tract infection): Status: Acute (5) Chronic systolic CHF (congestive heart failure): Currently compensated Switched to 20 mg po lasix daily from 11/01 Status: Acute (6) Elevated troponin: Status: Acute (7) CKD stage 3 secondary to diabetes: Status: Chronic (8) CAD (coronary artery disease): Status: Acute (9) COPD (chronic obstructive pulmonary disease): Status: Chronic (10) S/P bilateral BKA (below knee amputation): Status: Chronic (11) COVID-19: Status: Acute Attestations Medical Necessity Statement*: ongoing need for iv abx, pending susceptibility results Coding Level of Care Code Acute Chip Machine Operator for Chg Fwd Diagnoses Acute respiratory failure with hypoxia J96.01 Pneumonia J18.9 Acute pyelonephritis N10 UTI (urinary tract infection) N39.0 Chronic systolic CHF (congestive heart failure) I50.22 Elevated troponin R77.8 CKD stage 3 secondary to diabetes E11.22; N18.3 CAD (coronary artery disease) I25.10 COPD (chronic obstructive pulmonary disease) J44.9 S/P bilateral BKA (below knee amputation) Z89.512; Z89.511 COVID-19 U07.1
[2020-11-01] VITALS (13 sets, daily range): BP systolic 104–134; BP diastolic 51–86; PULSE 68–99; RESP 15–21; TEMP 36.3–36.9; O2SAT 95–99
[2020-11-01] MEDS: dextrose 50% syringe 50 mL 25 ML IVP (02:26)
--- NOTE | 2020-11-01 02:29 | PC.NURSE ---
In room to to push D50 because patient's blood sugar is showing 23. Patient is currently just moaning and is not able to take anything in orally. Per Protocol 1/2 amp of D50 pushed at this time by this nurse. Patient responded to D50 and blood sugar increased to 239. Patient is awake and talking at this time. This telegraphic typewriter repairer accidentally scanned medication on mohchiN's computer and MAR once I realized I did that I undone the medication on her NOV and scanned it on mine.
[2020-11-01 02:45] LABS: Glucose Point of Care 23 mg/dL (70-110)
[2020-11-01 02:45] LABS: Glucose Point of Care 24 mg/dL (70-110)
[2020-11-01 02:45] LABS: Glucose Point of Care 239 mg/dL (70-110)
[2020-11-01 04:04] LABS: Glucose Point of Care 162 mg/dL (70-110)
[2020-11-01 06:10] LABS: Glucose Point of Care 147 mg/dL (70-110)
[2020-11-01] MEDS: ferrous sulfate EC 325 mg Tablet PO ×2 (06:43→18:33)
[2020-11-01] MEDS: pantoprazole DR 40 mg Tablet PO ×2 (06:43→18:33)
[2020-11-01] MEDS: heparin 5,000 unit/mL INJ 1 mL 5000 UNIT SUBCUT ×2 (08:50→22:08)
[2020-11-01] MEDS: polyethylene glycol 3350 Pkt 17 gm PO (08:53)
[2020-11-01] MEDS: citalopram 20 mg Tablet PO (08:54)
[2020-11-01] MEDS: clopidogrel 75 mg Tablet PO (08:54)
[2020-11-01] MEDS: aspirin 81 mg EC Tablet PO (08:54)
[2020-11-01] MEDS: FUROsemide 20 mg Tablet PO (08:54)
[2020-11-01] MEDS: buPROPion SR (12 HR) 150 mg Tablet PO ×2 (08:54→22:08)
[2020-11-01] MEDS: carvedilol 3.125 mg Tablet PO ×2 (08:55→22:09)
[2020-11-01 10:59] LABS: Vancomycin Trough 18.1 ug/mL (10-15)
[2020-11-01] MEDS: ipratropium-albuterol 3 mL Neb INHALATION ×2 (11:09→21:15)
[2020-11-01] MEDS: budesonide 0.5 mg/2 mL Neb INHALATION ×2 (11:09→21:15)
[2020-11-01 11:15] LABS: Glucose Point of Care 544 mg/dL (70-110)
[2020-11-01] MEDS: vancomycin 1,000 MG in sodium chloride 0.9% 250 ML 250 MG IV (12:18)
[2020-11-01 16:40] LABS: Glucose Point of Care 486 mg/dL (70-110)
--- NOTE | 2020-11-01 16:50 | P.PN_ITS ---
Subjective Subjective: Interval history: noted to be more tachypneic on exam, wheezing right side, afberile, hypoglycemic overnight to blood sugar 20, resolved with insulin dextrose Vitals/I&O/Wt Last Vital Signs Temp 97.3 F L 11/01/20 16:00 Pulse 91 11/01/20 16:00 Resp 19 H 11/01/20 16:00 BP 134/86 11/01/20 16:00 Pulse Ox 99 11/01/20 16:00 11/01/20 11/01/20 11/01/20 06:59 14:59 22:59 Intake Total 300 / 840 1090 / 1090 Balance 300 / 840 1090 / 1090 Data : 10/31/20 04:34 10/31/20 04:34 Micro: Microbiology 10/28/20 06:38 Gram Stain - Final Sputum - Expectorated Sputum Sputum Culture - Final Methicillin Resis Staph Aureus 10/31/20 06:00 Urine Culture - Preliminary Urine,Clean Catch 10/31/20 14:45 Occult Blood (FIT) - Final Stool Routine Collection 10/28/20 14:00 Urine Culture - Final Urine,Clean Catch Methicillin Resis Staph Aureus A&P Additional A&P Information 64 year old male with a past medical history of systolic and diastolic heart failure, EF 31%, status post AICD, advanced COPD, COVID 19 pneumonia 06/2020, chronic atelectasis of right middle lobe status post unrevealing bronchoscopy, longstanding calcific subcarinal and bilateral hilar adenopathy, chronic right middle lobe atelectasis, severe peripheral vascular disease, current smoker, chronically on oxygen at night, as needed during the day, GRACIA, on CPAP, CKD stage II-III, CAD status post balloon angioplasty to RCA on February 2017, type 2 diabetes mellitus, bilateral BKA amputee, with recurrent admissions over the past 2 years. Recent admission Aug 2020 for rectal abscess. Currently admitted since 10/28/2020 after presenting with shortness of breath and abdominal pain. Upon arrival in the ER he was requiring close to 8Ls oxygen via face mask to maintain optimum saturation. Initial w/up showed presence of right pleural effusion and possible RLL consolidation, however from my review of his s erial chest x-rays dating back to August 2020, I do not see any gross change in the pleural effusion and consolidation. There is however noted increased pulmonary vascularity noted on this chest x-ray. BNP 7533 on admission, increased over 6000 from 10/19. Home dose of medication listed as Lasix 40mg po daily. CT abdomen on 10/28 showed variable enhancement in each kidney R>L, suspicious for pyelonephritis. No pelvic collection noted. Severe constipation. #Hypoxic respiratory failure as noted on admission, multifactorial Currently on 2lpm nasal cannula, improving Serial CXR from 08/2020 do not show any gross change per my interpretation, noted to have pulmonary congestion Likely residual changes persisting since COVID diagnosis in Jun 2020 Afebrile, leukocytosis of 14 on admission, however trending down since 08/2020 when it was 24. Procalcitonin negative at 0.09 at admission Overall less concerning clinically for pneumonia &/or empyema Outpatient pulmonary follow up for persisting infiltrates and effusion Currently treated with ceftriaxone and vancomycin empirically Sputum Cx with MRSA Stop CTX as completed 5 day course, less likely pneumonia # Acute on chronic CHF exacerbation as evidenced by increased pulm vascular markings on CXR, elevated BNP received 60mg IVP lasix on admission --> changed to 40mg po daily on 10/29--> changed to 20mg po daily on 10/31. Noted to be more dyspneic today, change to lasix 40mg IVP daily # h/o COPD Noted to be wheezing today change duoneb from BID inhalation to q6h scheduled, continue budesonide inhalation # Possible Pneumonia On previous admissions, CT of the chest without contrast on 1215 showed diffuse airspace infiltrate throughout the right lower lobe and atelectasis of the right lower lobe the latter is not new compared to previously, this has been attributed to compression from mediastinal lymph node in the past. There are bilateral pleural effusions right greater than left. Previous bronchoscopy showed compression of RML from mediastinal lymph node. Prior barium swallow have shown minimal penetration without rosana aspiration # POssible pyelonephritis based on CT findings, UA with elevated EBC, + urine leuk esterase (chronic since 12/2019). URine culture with MRSA. Blood culture from 10/28 negative to date. No mtz since Aug 2020. Odd to have MRSA in urine without concomitant bacteremia Unfortunately no good alternate po option to vancomycin currently. Avoiding Bactrim due to CKD, isolate resistant to doxycycline, linezolid DAMON at 4, higher end of normal, concerned for failure of treatment. VAncomycin DAMON at 2. Fairly susceptible to Daptomycin. Will need outpatient urology referral for chronic cystitis # Rectall abscess Aug 2020. treated with zosyn/vanc --> Cefepime and Flagyl whi le inpatient, changed to augmentin and levaquin at discharge. I&D in the ER shows E. coli and Proteus. Not an active issue on current CT # Uncontrolled blood sugar: overnight noted to have blood sugare down to 20 with lethargy. Given 25 ml dextrose after which blood sugar ranging 400-450. # Chronic CHF Echocardiogram was performed on 1216 which showed diffuse hypokinesia of the left ventricular ejection fraction of 25 to 30% and mildly dilated LV cavity. He has declined ICD. Stress test was attempted but could not be completed in aug 2020. Attestations Medical Necessity Statement*: Needs ongoing admission and iv abx for management of pyelonephritis, optimization of blood sugar control Coding Level of Care Code Acute New Patient Escort for Pepe Mcfarland
--- NOTE | 2020-11-01 18:21 | PC.NURSE ---
New order for Novolog placed in chart prior to administration of Novolog before dinner. Current POC was 418. Dr. Mendoza notified. Patient to get one time dose of 14 units and then proceed with new high dose protocol with meals starting at 0700 tomorrow morning.
[2020-11-01 18:23] LABS: Glucose Point of Care 418 mg/dL (70-110)
[2020-11-01] MEDS: FUROsemide 10 mg/mL SDV 2mL 20 MG IVP (18:32)
[2020-11-01 20:56] LABS: Glucose Point of Care 237 mg/dL (70-110)
[2020-11-01] MEDS: atorvastatin 40 mg Tablet 80 MG PO (22:07)
[2020-11-01] MEDS: tamsulosin 0.4 mg Capsule PO (22:09)
[2020-11-02] VITALS (17 sets, daily range): BP systolic 102–134; BP diastolic 51–77; PULSE 67–102; RESP 15–20; TEMP 36.5–37.1; O2SAT 92–100
[2020-11-02] MEDS: ipratropium-albuterol 3 mL Neb INHALATION ×4 (03:08→20:08)
[2020-11-02] MEDS: pantoprazole DR 40 mg Tablet PO ×2 (05:25→17:29)
[2020-11-02 05:38] LABS: Basophils # 0.1 10^3/uL (0.0-0.1); Basophils % 0.9 %; Eosinophils # 0.4 10^3/uL (0.0-0.8); Eosinophils % 3.8 %; Hematocrit 27.3 % (42.0-52.0); Hemoglobin 8.4 g/dL (11.7-16.6); Lymphocytes # 2.1 10^3/uL (0.8-4.8); Lymphocytes % 19.3 %; Mean Corpuscular HGB Conc 30.8 g/dL (30.0-36.0); Mean Corpuscular Hemoglobin 27.2 pg (28.0-34.0); Mean Corpuscular Volume 88.3 fL (80-94); Mean Platelet Volume 9.9 fL (7.4-10.4); Monocytes # 0.9 10^3/uL (0.2-0.9); Monocytes % 7.9 %; Neutrophils # 7.35 10^3/uL (1.8-7.7); Neutrophils % 67.4 %; Nucleated Red Blood Cells % 0 %; Platelet Count 343 10^3/cmm (130-400); Red Blood Count 3.09 10^6/uL (4.1-5.3); Red Cell Distribution Width 16.3 % (12.1-15.1); White Blood Count 10.9 10^3/uL (4.0-10.0)
[2020-11-02 06:09] LABS: Alanine Aminotransferase 8 U/L (0-41); Alkaline Phosphatase 93 IU/L (40-130); Anion Gap 15.6 (5-19); Aspartate Amino Transferase 8 U/L (0-40); Blood Urea Nitrogen 49 mg/dL (8-23); Calcium 8.7 mg/dL (8.5-10.5); Carbon Dioxide 25 mmol/L (22-29); Chloride 101 mmol/L (98-107); Globulin 3.4 g/dL (1.3-4.6); Glomerular Filtration Rate 30.2 mL/min (90-130); Glucose 140 mg/dL (65-115); Osmolality Calculated 299 mOsm/kg (285-295); Potassium 4.6 mmol/L (3.5-5.1); Sodium 137 mmol/L (136-145); Total Bilirubin 0.3 mg/dL (0.15-1.2); Total Protein 6.4 g/dL (6.6-8.7)
[2020-11-02 06:57] LABS: Glucose Point of Care 227 mg/dL (70-110)
[2020-11-02] MEDS: ferrous sulfate EC 325 mg Tablet PO ×2 (07:10→17:29)
[2020-11-02] MEDS: budesonide 0.5 mg/2 mL Neb INHALATION ×2 (08:27→20:08)
[2020-11-02] MEDS: clopidogrel 75 mg Tablet PO (08:29)
[2020-11-02] MEDS: carvedilol 3.125 mg Tablet PO ×2 (08:30→20:48)
[2020-11-02] MEDS: polyethylene glycol 3350 Pkt 17 gm PO (08:30)
[2020-11-02] MEDS: buPROPion SR (12 HR) 150 mg Tablet PO ×2 (08:30→20:48)
[2020-11-02] MEDS: heparin 5,000 unit/mL INJ 1 mL 5000 UNIT SUBCUT ×2 (08:30→20:48)
[2020-11-02] MEDS: citalopram 20 mg Tablet PO (08:30)
[2020-11-02] MEDS: aspirin 81 mg EC Tablet PO (08:30)
--- NOTE | 2020-11-02 10:24 | PC.SOCIAL ---
IM follow up provided and explained. Patient verbalized understanding and voiced no questions when asked.
[2020-11-02] MEDS: vancomycin 1,000 MG in sodium chloride 0.9% 250 ML 200 MG IV (12:20)
[2020-11-02 12:23] LABS: Glucose Point of Care 164 mg/dL (70-110)
--- NOTE | 2020-11-02 14:58 | PM.PN ---
Subjective Subjective: Interval history: Afebrile, hemodynamically stable, blood sugar much better controlled today. On 2 L/min supplemental O2. Medications: Reviewed: Yes Vitals/I&O/Wt Last Vital Signs Temp 97.8 F 11/02/20 12:00 Pulse 93 11/02/20 14:45 Resp 18 11/02/20 14:40 BP 110/59 11/02/20 12:00 Pulse Ox 93 11/02/20 14:40 11/01/20 11/02/20 11/02/20 22:59 06:59 14:59 Intake Total 240 / 1330 610 / 610 Balance 240 / 1330 610 / 610 Physical Exam Narrative: EXAM NARRATIVE: GEN: Awake, alert and oriented, no acute distress CVS: S1S2 N RS: CTA B/L , crackles on exam B/L lung bases Abd: Soft, nt/nd , bs+ FERMENTATION SCIENTIST: no focal neuro deficits EXT: B?L LE amputations, healed stumps Data : 11/02/20 05:10 11/02/20 05:10 Micro: Microbiology 10/28/20 13:41 Blood Culture - Final Blood NO GROWTH AFTER 5 DAYS 10/31/20 06:00 Urine Culture - Final Urine,Clean Catch 11/02/20 05:13 Blood Culture - Preliminary Blood SPECIMEN COLLECTED 11/02/20 05:10 Blood Culture - Preliminary Blood SPECIMEN COLLECTED 10/28/20 06:38 Gram Stain - Final Sputum - Expectorated Sputum Sputum Culture - Final Methicillin Resis Staph Aureus A&P Assessment and plan (1) Acute respiratory failure with hypoxia: Status: Acute (2) Pneumonia: Status: Acute (3) Acute pyelonephritis: Status: Acute (4) UTI (urinary tract infection): Status: Acute (5) Chronic systolic CHF (congestive heart failure): Currently compensated Switched to 20 mg po lasix daily from 11/01 Status: Acute (6) Elevated troponin: Status: Acute (7) CKD stage 3 secondary to diabetes: Status: Chronic (8) CAD (coronary artery disease): Status: Acute (9) COPD (chronic obstructive pulmonary disease): Status: Chronic (10) S/P bilateral BKA (below knee amputation): Status: Chronic (11) COVID-19: Status: Acute Additional A&P Information 64 year old male with a past medical history of systolic and diastolic heart failure, EF 31%, status post AICD, advanced COPD, COVID 19 pneumonia 06/2020, chronic atelectasis of right middle lobe status post unrevealing bronchoscopy, longstanding calcific subcarinal and bilateral hilar adenopathy, chronic right middle lobe atelectasis, severe peripheral vascular disease, current smoker, chronically on oxygen at night, as needed during the day, GRACIA, on CPAP, CKD stage II-III, CAD status post balloon angioplasty to RCA on February 2017, type 2 diabetes mellitus, bilateral BKA amputee, with recurrent admissions over the past 2 years. Recent admission Aug 2020 for rectal abscess. Currently admitted since 10/28/2020 after presenting with shortness of breath and abdominal pain. Upon arrival in the ER he was requiring close to 8Ls oxygen via face mask to maintain optimum saturation. Initial w/up showed presence of right pleural effusion and possible RLL consolidation, however from my review of his serial chest x-rays dating back to August 2020, I do not see any gross change in the pleural effusion and consolidation. There is however noted increased pulmonary vascularity noted on this chest x-ray. BNP 7533 on admission, increased over 6000 from 10/19. Home dose of medication listed as Lasix 40mg po daily. CT abdomen on 10/28 showed variable enhancement in each kidney R>L, suspicious for pyelonephritis. No pelvic collection noted. Severe constipation. #Hypoxic respiratory failure as noted on admission, multifactorial Currently on 2lpm nasal cannula, improving Serial CXR from 08/2020 do not show any gross change per my interpretation, noted to have pulmonary congestion Likely residual changes persisting since COVID diagnosis in Jun 2020 Afebrile, leukocytosis trended down to 10, however trending down since 08/2020 when it was 24. Procalcitonin negative at 0.09 at admission Overall less concerning clinically for pneumonia &/or empyema Outpatient pulmonary follow up for persisting infiltrates and effusion Currently treated with ceftriaxone and vancomycin empirically Sputum Cx with MRSA Stop CTX as completed 5 day course, less likely pneumonia # Acute on chronic CHF exacerbation as evidenced by increased pulm vascular markings on CXR, elevated BNP received 60mg IVP lasix on admission --> changed to 40mg po daily on 10/29--> changed to 20mg po daily on 10/31. Continue 40mg iv lasix daily, monitor I/O, urine output not charted today, patient voiding # h/o COPD change duoneb from BID inhalation to q6h scheduled, continue budesonide inhalation symptimatically less tachypneic today, less wheezing # Possible Pneumonia On previous admissions, CT of the chest without contrast on 09/07 showed diffuse airspace infiltrate throughout the right lower lobe and atelectasis of the right lower lobe the latter is not new compared to previously, this has been attributed to compression from mediastinal lymph node in the past. There are bilateral pleural effusions right greater than left. Previous bronchoscopy showed compression of RML from mediastinal lymph node. Prior barium swallow have shown minimal penetration without rosana aspiration # POssible pyelonephritis based on CT findings, UA with elevated EBC, + urine leuk esterase (chronic since 12/2019). URine culture with MRSA. Blood culture from 10/28 negative to date. No mtz since Aug 2020. Odd to have MRSA in urine without concomitant bacteremia, however with UA with chronic cystitis, would be reasdonable to treat for now and monitor for imporvement Unfortunately no good alternate po option to vancomycin currently. Avoiding Bactrim due to CKD, isolate resistant to doxycycline, linezolid DAMON at 4, higher end of normal, concerned for failure of treatment. VAncomycin DAMON at 2. Fairly susceptible to Daptomycin. Will plan for a total 10-14 day course of iv vancomycin, may be completed at SNF prior to discharge. Will need outpatient urology referral for chronic cystitis # Rectal abscess Aug 2020. treated with zosyn/vanc --> Cefepime and Flagyl while inpatient, changed to augmentin and levaquin at discharge. I&D in the ER shows E. coli and Proteus. Not an active issue on current CT. # Uncontrolled blood sugar: Yesterday had episodes of hypo and hyperglycemia, today much better controlled with high dose sliding scale WITH MEALS only. # Chronic CHF Echocardiogram was performed on 09/08 which showed diffuse hypokinesia of the left ventricular ejection fraction of 25 to 30% and mildly dilated LV cavity. He has declined ICD. Stress test was attempted but could not be completed in aug 2020. Attestations Medical Necessity Statement*: needs ongoing admission today for iv diuresis, crackles on exam today, iv antibiotics. Coding Level of Care Code Acute Commercial Journeyman Electrician for [facility] Fwd Diagnoses Acute respiratory failure with hypoxia J96.01 Pneumonia J18.9 Acute pyelonephritis N10 UTI (urinary tract infection) N39.0 Chronic systolic CHF (congestive heart failure) I50.22 Elevated troponin R77.8 CKD stage 3 secondary to diabetes E11.22; N18.3 CAD (coronary artery disease) I25.10 COPD (chronic obstructive pulmonary disease) J44.9 S/P bilateral BKA (below knee amputation) Z89.512; Z89.511 COVID-19 U07.1
[2020-11-02 16:34] LABS: Glucose Point of Care 181 mg/dL (70-110)
[2020-11-02] MEDS: FUROsemide 10 mg/mL SDV 4mL 40 MG IVP (17:29)
[2020-11-02] MEDS: tamsulosin 0.4 mg Capsule PO (20:48)
[2020-11-02] MEDS: atorvastatin 40 mg Tablet 80 MG PO (20:48)
[2020-11-02 21:03] LABS: Glucose Point of Care 204 mg/dL (70-110)
[2020-11-03] VITALS (10 sets, daily range): BP systolic 113–133; BP diastolic 73–78; PULSE 82–90; RESP 16–19; TEMP 36.3–37.2; O2SAT 92–100
[2020-11-03] MEDS: ipratropium-albuterol 3 mL Neb INHALATION ×2 (02:56→08:46)
[2020-11-03] MEDS: ferrous sulfate EC 325 mg Tablet PO (06:32)
[2020-11-03] MEDS: pantoprazole DR 40 mg Tablet PO (06:32)
[2020-11-03 06:56] LABS: Glucose Point of Care 303 mg/dL (70-110)
[2020-11-03] MEDS: heparin 5,000 unit/mL INJ 1 mL 5000 UNIT SUBCUT (07:56)
[2020-11-03] MEDS: polyethylene glycol 3350 Pkt 17 gm PO (07:56)
[2020-11-03] MEDS: aspirin 81 mg EC Tablet PO (07:57)
[2020-11-03] MEDS: buPROPion SR (12 HR) 150 mg Tablet PO (07:57)
[2020-11-03] MEDS: carvedilol 3.125 mg Tablet PO (07:57)
[2020-11-03] MEDS: clopidogrel 75 mg Tablet PO (07:57)
[2020-11-03] MEDS: citalopram 20 mg Tablet PO (07:57)
[2020-11-03] MEDS: budesonide 0.5 mg/2 mL Neb INHALATION (08:46)
--- NOTE | 2020-11-03 10:52 | PM.DCS ---
Discharge Providers Date of Admission: 10/28/20 16:12 Date of Discharge: November 03, 2020 Attending Provider at Admission: Twin White MD Attending Provider at Discharge: Edilma Mendoza MD Primary Care Provider: Hiram Black DO Diagnoses at Discharge Discharge Diagnosis (1) Acute respiratory failure with hypoxia: Status: Acute (2) Pneumonia: Status: Acute (3) Acute pyelonephritis: Status: Acute (4) UTI (urinary tract infection): Status: Acute (5) Chronic systolic CHF (congestive heart failure): Status: Acute (6) CKD stage 3 secondary to diabetes: Status: Chronic (7) CAD (coronary artery disease): Status: Acute (8) COPD (chronic obstructive pulmonary disease): Status: Chronic (9) S/P bilateral BKA (below knee amputation): Status: Chronic Reason for Visit Reason for Visit: RESPIRATORY DISTRESS Hospital Course Hospital Course 64 year old male with a past medical history of systolic and diastolic heart failure, EF 31%, status post AICD, advanced COPD, COVID 19 pneumonia 06/2020, chronic atelectasis of right middle lobe status post unrevealing bronchoscopy, longstanding calcific subcarinal and bilateral hilar adenopathy, chronic right middle lobe atelectasis, severe peripheral vascular disease, current smoker, chronically on oxygen at night, as needed during the day, GRACIA, on CPAP, CKD stage II-III, CAD status post balloon angioplasty to RCA on February 2017, type 2 diabetes mellitus, bilateral BKA amputee, with recurrent admissions over the past 2 years. Recent admission Aug 2020 for rectal abscess. Currently admitted since 10/28/2020 after presenting with shortness of breath and abdominal pain. Upon arrival in the ER he was requiring close to 8Ls oxygen via face mask to maintain optimum saturation. Initial w/up showed presence of right pleural effusion and possible RLL consolidation, however from my review of his serial chest x-rays dating back to August 2020, I do not see any gross change in the pleural effusion and consolidation. There is however noted increased pulmonary vascularity noted on this chest x-ray. BNP 7533 on admission, increased over 6000 from 10/19. Home dose of medication listed as Lasix 40mg po daily. CT abdomen on 10/28 showed variable enhancement in each kidney R>L, suspicious for pyelonephritis. No pelvic collection noted. Severe constipation. #Hypoxic respiratory failure as noted on admission, multifactorial Currently on 2lpm nasal cannula, improving Serial CXR from 08/2020 do not show any gross change per my interpretation, noted to have pulmonary congestion Likely residual changes persisting since COVID diagnosis in Jun 2020 Afebrile, leukocytosis trended down to 10, also trending down since 08/2020 when it was 24. Procalcitonin negative at 0.09 at admission Overall less concerning clinically for pneumonia &/or empyema Outpatient pulmonary follow up for persisting infiltrates and effusion Currently treated with ceftriaxone and vancomycin empirically Sputum Cx with MRSA Stop CTX as completed 5 day course, less likely pneumonia, continuing vancomycin for pyelonephritis # Acute on chronic CHF exacerbation as evidenced by increased pulm vascular markings on CXR, elevated BNP Being discharged on 40mg po BID Continue to monitor at SNF with daily weight and urine output # h/o COPD changed duoneb from BID inhalation to q6h scheduled, continued budesonide inhalation no acute exacerbation # Possible Pneumonia On previous admissions, CT of the chest without contrast on 09/07 showed diffuse airspace infiltrate throughout the right lower lobe and atelectasis of the right lower lobe the latter is not new compared to previously, this has been attributed to compression from mediastinal lymph node in the past. There are bilateral pleural effusions right greater than left. Previous bronchoscopy showed compression of RML from mediastinal lymph node, otherwise unremarkable. .Prior barium swallow have shown minimal penetration without rosana aspiration # POssible pyelonephritis based on CT findings, UA with elevated WBC, + urine leuk esterase (chronic since 12/2019). URine culture with MRSA. Blood culture from 10/28 negative to date. No mtz since Aug 2020. Odd to have MRSA in urine without concomitant bacteremia or urinary hardware, however with UA with chronic cystitis, would be reasdonable to treat for now and monitor for imporvement Unfortunately no good alternate po option to vancomycin currently. Avoiding Bactrim due to CKD, isolate resistant to doxycycline, linezolid DAMON at 4, higher end of normal, concerned for failure of treatment. VAncomycin DAMON at 2. Fairly susceptible to Daptomycin. Will plan for a total 10 day course of iv vancomycin, may be completed at SNF prior to discharge. Will need outpatient urology referral for chronic cystitis # Rectal abscess Aug 2020. treated with zosyn/vanc --> Cefepime and Flagyl while inpatient, changed to augmentin and levaquin at discharge. I&D in the ER showed E. coli and Proteus. Not an active issue on current CT and clinical exam. Intertrigo noted in gron folds, recommend clotrimazole ointment # Uncontrolled blood sugar: better controlled with high dose sliding scale WITH MEALS only. # Chronic CHF Echocardiogram was performed on 09/08 which showed diffuse hypokinesia of the left ventricular ejection fraction of 25 to 30% and mildly dilated LV cavity. He has declined ICD. Stress test was attempted but could not be completed in aug 2020. Patient being discharged back to [facility] today in chronically ill but currently best optimized condition. Physical Exam Narrative: EXAM NARRATIVE: GEN: Awake, alert and oriented, no acute distress CVS: S1S2 N RS: CTA B/L all areas Abd: Soft, nt/nd , bs+ ELECTRICAL TEST TECHNICIAN: no focal neuro deficits EXT: B/L BKA, well healed stumps Discharge Data Data Completed and Pending: Completed Studies During Hospitalization Category Date Time Status CT abdomen pelvis w con* [id number] Stat Cat Scan 10/28/20 12:43 Completed XR chest 1V bernard ble [id number] Stat Exams 10/28/20 12:38 Completed Pending at discharge Category Date Time Status Arterial Blood Ga s Full Stat Lab 10/28/20 13:02 Results Blood Culture AM LABS Lab 11/02/20 05:13 Results Labs from last 24 hours 11/03/20 11/02/20 11/02/20 06:47 20:55 16:27 POC Glucose 303 H 204 H 181 H 11/02/20 12:02 POC Glucose 164 H Addt'l Data from Hospital Stay: Microbiology 11/02/20 05:13 Blood Blood Culture - Preliminary NEGATIVE TO DATE 11/02/20 05:10 Blood Blood Culture - Preliminary NEGATIVE TO DATE 10/28/20 15:34 Blood Blood Culture - Final NO GROWTH AFTER 5 DAYS 10/28/20 13:41 Blood Blood Culture - Final NO GROWTH AFTER 5 DAYS 10/31/20 06:00 Urine,Clean Catch Urine Culture - Final 10/28/20 06:38 Sputum - Expectorated Sputum Gram Stain - Final 10/28/20 06:38 Sputum - Expectorated Sputum Sputum Culture - Final Methicillin Resis Staph Aureus 10/31/20 14:45 Stool Routine Collection Occult Blood (FIT) - Final 10/28/20 14:00 Urine,Clean Catch Urine Culture - Final Methicillin Resis Staph Aureus Pertinent Labs During Stay 10/28/20 10/29/20 11/01/20 13:41 05:11 10:25 NT-Pro-B Natriuret Pep 7533 H Lipase 7 L Procalcitonin 0.09 Vancomycin Trough 18.1 H Laboratory Results WBC 10.9 10^3/uL (4.0 -10.0) H 11/02/20 05:10 RBC 3.09 10^6/uL (4.1 -5.3) L 11/02/20 05:10 Hgb 8.4 g/dL (11.7-16 .6) L 11/02/20 05:10 Hct 27.3 % (42.0-52.0 ) L 11/02/20 05:10 MCV 88.3 fL (80-94) 11/02/20 05:10 MCH 27.2 pg (28.0-34. 0) L 11/02/20 05:10 MCHC 30.8 g/dL (30.0-3 6.0) 11/02/20 05:10 RDW 16.3 % (12.1-15.1 ) H 11/02/20 05:10 Plt Count 343 10^3/cmm (130 -400) 11/02/20 05:10 MPV 9.9 fL (7.4-10.4) 11/02/20 05:10 Neut % (Auto) 67.4 % 11/02/20 05:10 Lymph % (Auto) 19.3 % 11/02/20 05:10 [place] % (Auto) 7.9 % 11/02/20 05:10 Eos % (Auto) 3.8 % 11/02/20 05:10 Baso % (Auto) 0.9 % 11/02/20 05:10 Neut # (Auto) 7.35 10^3/uL (1.8 -7.7) 11/02/20 05:10 Lymph # (Auto) 2.1 10^3/uL (0.8- 4.8) 11/02/20 05:10 [place] # (Auto) 0.9 10^3/uL (0.2- 0.9) 11/02/20 05:10 Eos # (Auto) 0.4 10^3/uL (0.0- 0.8) 11/02/20 05:10 Baso # (Auto) 0.1 10^3/uL (0.0- 0.1) 11/02/20 05:10 Nucleated RBC % (a uto) 0 % 11/02/20 05:10 Nucleated RBCs # 0.0 /100WBC 11/02/20 05:10 Specimen Type Arterial 10/28/20 13:02 Sample Site Brachial, left 10/28/20 13:02 ABG pH 7.37 (7.35-7.45) 10/28/20 13:02 ABG pCO2 47.7 mmHg (35-45) H 10/28/20 13:02 ABG pO2 349.0 mmHg (80.0- 100.0) H 10/28/20 13:02 ABG HCO3 27.6 mmol/L (22-2 6) H 10/28/20 13:02 ABG O2 Saturation > 100.0 10/28/20 13:02 ABG Base Excess 1.9 mmol/L (-2.0- 2.0) 10/28/20 13:02 Pop Test Pos 10/28/20 13:02 Hematocrit 29.7 % (42-52) L 10/28/20 13:02 Hgb O2 Saturation 98.6 % (95-100) 10/28/20 13:02 Carboxyhemoglobin 0.9 %THgb (0.4-20 .1) 10/28/20 13:02 Methemoglobin 1.1 % (0.4-1.5) 10/28/20 13:02 Total Hemoglobin 9.7 g/dL (14-18) L 10/28/20 13:02 Sodium 139.0 mmol/L (131 -143) 10/28/20 13:02 Potassium 4.7 mmol/L (3.5-5 .0) 10/28/20 13:02 Glucose 250.0 mg/dL (70-1 15) H 10/28/20 13:02 Ionized Calcium 1.2 mmol/L (1.1-1 .4) 10/28/20 13:02 O2 Delivery Device Nrb 10/28/20 13:02 O2 Liters/Min 9.0 % 10/28/20 13:02 Office Assistance ID Ed 10/28/20 13:02 Sodium 137 mmol/L (136-1 45) 11/02/20 05:10 Potassium 4.6 mmol/L (3.5-5 .1) 11/02/20 05:10 Chloride 101 mmol/L (98-10 7) 11/02/20 05:10 Carbon Dioxide 25 mmol/L (22-29) 11/02/20 05:10 Anion Gap 15.6 (5-19) 11/02/20 05:10 BUN 49 mg/dL (8-23) H 11/02/20 05:10 Creatinine 2.2 mg/dL (0.7-1. 2) H 11/02/20 05:10 GFR Calculation 30.2 mL/min (90-1 30) L 11/02/20 05:10 Glucose 140 mg/dL (65-115 ) H 11/02/20 05:10 POC Glucose 303 mg/dL (70-110 ) H 11/03/20 06:47 Calculated Osmolal ity 299 mOsm/kg (285- 295) H 11/02/20 05:10 Lactic Acid 1.2 mmol/L (0.5-2 .2) 10/28/20 13:41 Calcium 8.7 mg/dL (8.5-10 .5) 11/02/20 05:10 Magnesium 2.3 mg/dL (1.7-2. 3) 10/31/20 04:34 Total Bilirubin 0.3 mg/dL (0.15-1 .2) 11/02/20 05:10 AST 8 U/L (0-40) 11/02/20 05:10 ALT 8 U/L (0-41) 11/02/20 05:10 Alkaline Phosphata se 93 IU/L (40-130) 11/02/20 05:10 Troponin T Baselin e 78 ng/L (0-15) H 10/28/20 13:41 Troponin T 120 Min circle 75.10 ng/L (0-15) H 10/28/20 15:34 Delta Troponin T -2.90 ABS# (0-10) L 10/28/20 15:34 Troponin T Hi Sens 6Hr 77.11 ng/L (0-15) H 10/28/20 20:27 Troponin T Hi Sens 6Hr Delta -0.89 ng/L (0-12) L 10/28/20 20:27 NT-Pro-B Natriuret Pep 7533 pg/mL (0-125 ) H 10/28/20 13:41 Total Protein 6.4 g/dL (6.6-8.7 ) L 11/02/20 05:10 Albumin 3.0 g/dL (3.5-5.2 ) L 11/02/20 05:10 Globulin 3.4 g/dL (1.3-4.6 ) 11/02/20 05:10 Lipase 7 U/L (13-60) L 10/28/20 13:41 Procalcitonin 0.09 ng/mL (0-0.5 ) 10/29/20 05:11 Urine Color Yellow (Yellow) 10/31/20 06:00 Urine Appearance Cloudy (CLEAR) 10/31/20 06:00 Urine pH 5 (5-7) 10/31/20 06:00 Ur Specific Gravit y 1.015 (1.005-1.0 30) 10/31/20 06:00 Urine Protein Neg (Negative) 10/31/20 06:00 Urine Glucose (UA) Norm (Normal) 10/31/20 06:00 Urine Ketones Negative (Negati ve) 10/31/20 06:00 Urine Blood 2+ (Negative) H 10/31/20 06:00 Urine Nitrate Negative (Negati ve) 10/31/20 06:00 Urine Bilirubin Neg (Negative) 10/31/20 06:00 Urine Urobilinogen Norm mg/dL (Negat barb) 10/31/20 06:00 Ur Leukocyte Erlinda ase 2+ (Negative) H 10/31/20 06:00 Urine RBC 5-10 /hpf (0-2) H 10/31/20 06:00 Urine WBC Too numerous to c nt /hpf (0-5) H 10/31/20 06:00 Ur Squamous Epith Cells None /hpf (0-5) 10/31/20 06:00 Amorphous Sediment Not Reportable 10/31/20 06:00 Urine Bacteria 1+ /hpf (NONE) H 10/31/20 06:00 Vancomycin Trough 18.1 ug/mL (10-15 ) H 11/01/20 10:25 Misc Test Referenc e 10/30/20 15:52 Impressions Chest X-Ray 10/28/20 12:38 Impression: 1. Cardiomegaly with pulmonary vascular congestion. 2. Right pleural effusion with possible right lower lobe consolidation. Abdomen/Pelvis CT 10/28/20 12:43 IMPRESSION: 1. Small bilateral pleural effusions with progressive areas of consolidation at the lung bases which is probably pneumonia. 2. Variable enhancement within each kidney, RIGHT greater than LEFT. Suspicious for pyelonephritis/UTI. 3. Extensive atherosclerosis aorta and mesenteric arteries. 4. Severe constipation. Vitals: Last Vital Signs Temp 97.6 F 11/03/20 08:00 Pulse 89 11/03/20 08:58 Resp 18 11/03/20 08:48 BP 133/73 11/03/20 08:00 Pulse Ox 96 11/03/20 08:48 Discharge Plan Discharge Patient Disposition: Xfer SNF Condition: Stable Prescriptions: New vancomycin 750 mg recon soln See Rx Instructions .ROUTE .COMPLEX Qty: 5 RF: 0 Continued albuterol sulfate 2.5 mg /3 mL (0.083 %) solution for nebulization 2.5 mg INHALATION Q4H PRN (Reason: Shortness Of Breath) RF: 0 ondansetron HCl [Zofran] 4 mg Tablet 4 mg PO Q4H PRN (Reason: Nausea) RF: 0 magnesium hydroxide [Milk of Magnesia] 400 mg/5 mL Suspension 30 ml PO DAILY PRN (Reason: CONSTIPATON) RF: 0 Mucinex DM 30-600 mg Tablet Extended Release 12 Hr 1 tab PO BID@ RF: 0 Hair,Skin and Nails 1 mg iron-66.7 mcg-1,000 mcg Tablet 1 tab PO DAILY@ RF: 0 citalopram 20 mg tablet 20 mg PO DAILY@ RF: 0 pantoprazole 40 mg tablet,delayed release (DR/EC) 40 mg PO BID@ RF: 0 polyethylene glycol 3350 [Miralax] 17 gram Powder In Packet 17 g PO DAILY@08 RF: 0 sucralfate 1 gram Tablet 1 g PO BID@ RF: 0 ferrous sulfate 325 mg (65 mg iron) Tablet 325 mg PO BID@ RF: 0 Pro-Stat AWC 17-100 gram-kcal/30 mL Liquid 1 ea PO BID@ RF: 0 bupropion HCl [Wellbutrin SR] 150 mg Tablet Sustained-Release 12 Hr 150 mg PO Q12H RF: 0 acetaminophen 325 mg Tablet 650 mg PO Q4H PRN (Reason: Pain) Qty: 0 RF: 0 clopidogrel [Plavix] 75 mg Tablet 75 mg PO DAILY@ RF: 0 aspirin 81 mg Tablet,Delayed Release (Dr/Ec) 81 mg PO DAILY@ RF: 0 carvedilol 3.125 mg Tablet 3.125 mg PO BID@ RF: 0 tamsulosin 0.4 mg Capsule 0.4 mg PO DAILY@2099 RF: 0 bisacodyl 10 mg Suppository 10 mg IL DAILY PRN (Reason: CONSTIPATED) RF: 0 nitroglycerin 0.4 mg Tablet, Sublingual 0.4 mg SUBLINGUAL Q5M PRN (Reason: Chest Pain) RF: 0 budesonide 0.5 mg/2 mL suspension for nebulization 2 ml inhalation BID@ RF: 0 loratadine 10 mg Tablet 10 mg PO DAILY@ RF: 0 insulin lispro [Humalog KwikPen Insulin] 100 unit/mL Insulin Pen See Rx Instructions .ROUTE .COMPLEX RF: 0 rosuvastatin [Crestor] 20 mg Tablet 20 mg PO DAILY@ RF: 0 magnesium L-lactate [Magtab] 84 mg Tablet Extended Release 84 mg PO DAILY@ RF: 0 ipratropium-albuterol 0.5 mg-3 mg(2.5 mg base)/3 mL Solution For Nebulization 3 ml INHALATION BID@ PRN (Reason: Shortness Of Breath) RF: 0 TwoCal HN 0.08-2 gram-kcal/mL Liquid 1 ea PO BID@ RF: 0 Glucagon (HCl) Emergency Kit 1 mg Recon Soln 1 mg SUBCUT Q20M PRN (Reason: BLOOD SUGAR) RF: 0 Changed Lasix 40 mg Tablet 40 mg PO BID Qty: 0 RF: 0 Discontinued Lantus U-100 Insulin 100 unit/mL Solution 18 unit SUBCUT DAILY RF: 0 Discharge Orders: Discharge Order (Routine); Ordered 11/03/20 Ordered By: Edilma Mendoza Other Ambulatory Orders: Vancomycin Trough (Routine) Timeframe: 1 Day Location: Determined by Patient Ordered By: Edilma Mendoza Vancomycin Trough (Routine) Timeframe: 20201107 Location: Determined by Patient Ordered By: Edilma Mendoza Discharge Diet: Usual diet Discharge Activity: Resume usual activity Discharge Attestations Time Spent in Discharge Care*: greater than 30 min Quality Metrics Clinical Quality Measures During this hospital stay, did patient experience: None Coding Level of Care Code Acute 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
[2020-11-03] MEDS: vancomycin 750 MG in sodium chloride 0.9% 250 ML 250 MG IV (11:49)
[2020-11-03 11:50] LABS: Glucose Point of Care 384 mg/dL (70-110)
--- NOTE | 2020-11-03 12:51 | PC.NURSE ---
called report to Deborah at [place], denies further questions or concerns.
--- NOTE | 2020-11-03 13:28 | PC.NURSE ---
attempted to call family Brittney and sesar daughters of patient to inform of discharge no answer yet.
--- NOTE | 2020-11-03 14:00 | PC.NURSE ---
anj transportation here to pepper picker patient, discharge packet provided.
== END 2020-11-03 14:04 | disposition home or self-care (01) | DRG 291 ==
LOC: ER 14:29 → MEDSURG 16:44
PROVIDERS: Admitting Provider Internal Medicine; Emergency Provider Family Medicine; PCP Internal Medicine; Visit Provider Student in an Organized Health Care Education/Training Program
DX: I13.0 Hypertensive heart and chronic kidney disease with heart failure and stage 1 through stage 4 chronic kidney disease, or unspecified chronic kidney disease (principal); J18.9 Pneumonia, unspecified organism; I50.23 Acute on chronic systolic (congestive) heart failure; J96.01 Acute respiratory failure with hypoxia; J44.0 Chronic obstructive pulmonary disease with (acute) lower respiratory infection; N39.0 Urinary tract infection, site not specified; N10 Acute pyelonephritis; J98.11 Atelectasis; N18.30 Chronic kidney disease, stage 3 unspecified; E11.22 Type 2 diabetes mellitus with diabetic chronic kidney disease; Z95.810 Presence of automatic (implantable) cardiac defibrillator; Z86.16 Personal history of COVID-19; G47.33 Obstructive sleep apnea (adult) (pediatric); Z89.512 Acquired absence of left leg below knee; Z89.511 Acquired absence of right leg below knee; F41.9 Anxiety disorder, unspecified; N40.1 Benign prostatic hyperplasia with lower urinary tract symptoms; N39.498 Other specified urinary incontinence; R33.8 Other retention of urine; I25.10 Atherosclerotic heart disease of native coronary artery without angina pectoris; Z95.5 Presence of coronary angioplasty implant and graft; F32.9 Major depressive disorder, single episode, unspecified; E11.65 Type 2 diabetes mellitus with hyperglycemia; E11.51 Type 2 diabetes mellitus with diabetic peripheral angiopathy without gangrene; F17.210 Nicotine dependence, cigarettes, uncomplicated; B95.62 Methicillin resistant Staphylococcus aureus infection as the cause of diseases classified elsewhere; R59.0 Localized enlarged lymph nodes; Z79.4 Long term (current) use of insulin; Z79.82 Long term (current) use of aspirin; Z79.02 Long term (current) use of antithrombotics/antiplatelets; Z79.51 Long term (current) use of inhaled steroids; K59.00 Constipation, unspecified; Z99.81 Dependence on supplemental oxygen
CPT/HCPCS: 12345; 36415; 36416; 36600; 51702; 71045; 74177; 80051; 80053; 80202; 81001; 82274; 82330; 82805; 82962; 83605; 83690; 83735; 83880; 84145; 84484; 85025; 87040; 87070; 87077; 87086; 87186; 87205; 87641; 93005; 94640; 96372; 99283; 99291; J0696; J1644; J1815; J1940; J1956; J2543; J3370; J7050; J7626; Q9967

== ENCOUNTER 2020-11-04 03:07 | Emergency (ER) | payer MEDICARE, MEDICAID, SELFPAY ==
[2020-11-04] VITALS (12 sets, daily range): BP systolic 113–159; BP diastolic 67–96; PULSE 89–109; RESP 13–26; TEMP 36.6; O2SAT 95–100; BMI 28.1
--- NOTE | 2020-11-04 03:15 | ECG_ITS ---
[facility] Test Date: 2020-11-04 Pat Name: Tashi Cole Department: Room: Gender: Male Folder Inspector: : 1955 Requested By: Chris Ruiz Order Number: [id number] Reading MD: Rosa Wiggins M.D. Measurements Intervals [place] Rate: 104 P: 65 NM: 195 QRS: 25 QRSD: 97 T: 137 QT: 338 QTc: 445 Interpretive Statements SINUS TACHYCARDIA INFERIOR MYOCARDIAL INFARCTION , OF INDETERMINATE AGE [40+ ms Q WAVE AND/OR ST/T ABNORMALITY IN II/aVF] ANTEROSEPTAL MYOCARDIAL INFARCTION , PROBABLY OLD [40+ ms Q WAVE IN V1-V4] Compared to ECG 10/28/2020 20:43:23 Sinus rhythm no longer present Intraventricular conduction delay no longer present Myocardial infarct finding still present Electronically Signed On 11-05-2020 19:13:53 OBSTETRICS NURSE by Rosa Wiggins M.D. [id number]
--- NOTE | 2020-11-04 03:15 | XR_ITS ---
WS: [id number] Portable AP upright chest, 11/04/2020 Clinical Data: sob Comparison: Portable chest, 10/28/2020. Findings: The heart remains enlarged. The pulmonary vascularity is increased. The right basilar opaci ty has not changed. There is a right effusion. XR/XR chest 1V portable [id number] Impression: No change from previous chest x-ray.
--- NOTE | 2020-11-04 03:16 | W.ED.SOB ---
HPI - SOB/Dyspnea General: Chief Complaint: Shortness of Breath/Dyspnea Stated Complaint: HYPERGLYCEMIA Time Seen by Provider: 11/04/20 03:11 Source: patient and EMS Mode of arrival: EMS Limitations: no limitations History of Present Illness: HPI Narrative: 65-year-old male presents here from [facility]ial with shortness of breath and hyperglycemia. Patient has multiple medical problems including bilateral BKA's diabetes congestive heart failure and COPD. EMS states he is worsening shortness of breath at custodial and was on 8 L of oxygen. He is baseline 3 L. Patient was recently discharged from the hospital here 1 to 2 days ago. Patient denies any fevers. Patient is in respiratory distress. Able to speak in 3-5 word sentences. Patient denies any chest pain. Denies any fever MD elicited complaint: shortness of breath Associated symptoms: Deny abdominal pain, chest pain, fever(s), nausea or vomiting Review of Systems Const: Denies: fever(s), chills, body aches or change in appetite Eyes: Denies: blurry vision or eye discomfort ENMT: Denies: throat pain or dental pain Card: Denies: chest pain Resp: Reports: dyspnea and wheezing GI: Denies: abdominal pain, nausea, vomiting or diarrhea : Denies: dysuria Musc: Denies: neck pain or back pain Skin/Breast: Denies: rash Neuro: Denies: headache(s) Psych: Denies: depression Ashvin/Lymph: Denies: easy bruising All/Imm: Denies: urticaria PFSH ED PFSH: Medical History (Updated 11/04/20 @ 04:31 by Chris Ruiz MD) Abnormal cystoscopy Acute encephalopathy Anxiety BPH (benign prostatic hyperplasia) Chronic systolic CHF (congestive heart failure) CKD stage 3 secondary to diabetes COPD (chronic obstructive pulmonary disease) Coronary artery disease COVID-19 Depression Dysphagia History of urinary retention Hypertension Peripheral vascular disease Type 2 diabetes mellitus Urgency incontinence Surgical History Coronary angioplasty status History of carpal tunnel surgery History of hip surgery S/P bilateral BKA (below knee amputation) S/P right coronary artery (RCA) stent placement Family History Other CAD (coronary artery disease) Diabetes Social History Smoking and tobacco status: current every day smoker cigarettes Packs smoked per day: 0.5 Years cigarettes smoked: 59 Second hand smoke exposure: Yes Alcohol intake: never Lives independently: No Housing: Retirement Marital status: Current occupational status: retired and disabled History of recent travel: No Current gender identity: Male Physical Exam Const: COMMON NORMALS: patient oriented x3 GENERAL APPEARANCE: in distress and ill appearing HENMT: COMMON NORMALS: normocephalic and atraumatic HEAD & SCALP: normocephalic and atraumatic Eye: COMMON NORMALS: Equal, round and reactive pupils present and EOMs intact bilaterally PUPIL: Yes Equal, round and reactive pupils present Neck/C-Spine: COMMON NORMALS: full ROM and supple Chest: COMMONS NORMALS: normal inspection of the chest and normal palpation of entire chest wall Resp: COMMON NORMALS: No use of accessory muscles EFFORT & INSPECTION: Yes tachypneic and Yes respiratory distress AUSCULTATION: wheezes Cardio: COMMON NORMALS: regular rate, regular rhythm and No murmurs present (Cardio) RATE: regular rate RHYTHM: regular rhythm GI: COMMON NORMALS: Normal to inspection, nondistended, normoactive bowel sounds present, Soft to palpation, non-tender and no masses PALPATION: Yes Soft to palpation Extremity: COMMON NORMALS: normal to inspection and full ROM Neuro: COMMON NORMALS: patient oriented x3, moves all extremities and no focal motor deficits Psych: COMMON NORMALS: mental status grossly normal, Normal thought process present and cooperative THOUGHT PROCESS: Normal thought process present Skin: COMMON NORMALS: no rashes or lesions noted and no wounds GENERAL SKIN EXAM: no rashes or lesions noted Course Vital Signs: Vital signs: Vital Signs Temperature 98 F 11/04/20 03:09 Pulse Rate 93 11/04/20 04:50 Respiratory Rate 15 11/04/20 04:50 Blood Pressure 126/92 11/04/20 04:50 Pulse Oximetry 97 11/04/20 04:50 MDM - SOB/Dyspnea MDM Narrative: Medical decision making narrative: Patient presents with shortness of breath that is chronic in nature. He feels much improved here after breathing treatments. His hyperglycemia is improved as well. He is 100% here on 2 L which is his baseline. His labs are improved from previous admission. I feel patient is stable for discharge and return if worsening. Lab Data: Labs: Lab Results 11/04/20 11/04/20 11/04/20 Range/Units 03:19 03:27 03:27 WBC 11.5 H (4.0-10.0) 10^3/ uL RBC 3.45 L (4.1-5.3) 10^6/u L Hgb 9.4 L (11.7-16.6) g/dL Hct 30.8 L (42.0-52.0) % MCV 89.3 (80-94) fL MCH 27.2 L (28.0-34.0) pg MCHC 30.5 (30.0-36.0) g/dL RDW 16.5 H (12.1-15.1) % Plt Count 341 (130-400) 10^3/c mm MPV 10.0 (7.4-10.4) fL Neut % (Auto) 73.3 % Lymph % (Auto) 14.2 % Pine % (Auto) 5.8 % Eos % (Auto) 4.9 % Baso % (Auto) 1.1 % Neut # (Auto) 8.44 H (1.8-7.7) 10^3/u L Lymph # (Auto) 1.6 (0.8-4.8) 10^3/u L Pine # (Auto) 0.7 (0.2-0.9) 10^3/u L Eos # (Auto) 0.6 (0.0-0.8) 10^3/u L Baso # (Auto) 0.1 (0.0-0.1) 10^3/u L Nucleated RBC % (a uto) 0 % Nucleated RBCs # 0.0 /100WBC PT 13.70 (12.1-14.9) SECO NDS INR 1.02 (0.8-1.2) Specimen Type Arterial Sample Site Radial, left ABG pH 7.27 L (7.35-7.45) ABG pCO2 56.9 H (35-45) mmHg ABG pO2 112.0 H (80.0-100.0) mmH g ABG HCO3 26.3 H (22-26) mmol/L ABG Base Excess -1.0 (-2.0-2.0) mmol/ L Pop Test Pos Hematocrit 28.9 L (42-52) % O2 Delivery Device Nc O2 Liters/Min 5.0 % FiO2 40.0 % Business Rules Developer ID Jlg Sodium (136-145) mmol/L Potassium (3.5-5.1) mmol/L Chloride (98-107) mmol/L Carbon Dioxide (22-29) mmol/L Anion Gap (5-19) BUN (8-23) mg/dL Creatinine (0.7-1.2) mg/dL GFR Calculation (90-130) mL/min Glucose (65-115) mg/dL Calculated Osmolal ity (285-295) mOsm/k g Lactic Acid (0.5-2.2) mmol/L Calcium (8.5-10.5) mg/dL Total Bilirubin (0.15-1.2) mg/dL AST (0-40) U/L ALT (0-41) U/L Alkaline Phosphata se (40-130) IU/L Troponin T Baselin e (0-15) ng/L NT-Pro-B Natriuret Pep (0-125) pg/mL Total Protein (6.6-8.7) g/dL Albumin (3.5-5.2) g/dL Globulin (1.3-4.6) g/dL 11/04/20 11/04/20 11/04/20 Range/Units 03:27 03:27 03:27 WBC (4.0-10.0) 10^3/ uL RBC (4.1-5.3) 10^6/u L Hgb (11.7-16.6) g/dL Hct (42.0-52.0) % MCV (80-94) fL MCH (28.0-34.0) pg MCHC (30.0-36.0) g/dL RDW (12.1-15.1) % Plt Count (130-400) 10^3/c mm MPV (7.4-10.4) fL Neut % (Auto) % Lymph % (Auto) % Pine % (Auto) % Eos % (Auto) % Baso % (Auto) % Neut # (Auto) (1.8-7.7) 10^3/u L Lymph # (Auto) (0.8-4.8) 10^3/u L Pine # (Auto) (0.2-0.9) 10^3/u L Eos # (Auto) (0.0-0.8) 10^3/u L Baso # (Auto) (0.0-0.1) 10^3/u L Nucleated RBC % (a uto) % Nucleated RBCs # /100WBC PT (12.1-14.9) SECO NDS INR (0.8-1.2) Specimen Type Sample Site ABG pH (7.35-7.45) ABG pCO2 (35-45) mmHg ABG pO2 (80.0-100.0) mmH g ABG HCO3 (22-26) mmol/L ABG Base Excess (-2.0-2.0) mmol/ L Pop Test Hematocrit (42-52) % O2 Delivery Device O2 Liters/Min % FiO2 % Business Rules Developer ID Sodium 134 L (136-145) mmol/L Potassium 5.6 H (3.5-5.1) mmol/L Chloride 99 (98-107) mmol/L Carbon Dioxide 22 (22-29) mmol/L Anion Gap 18.6 (5-19) BUN 44 H (8-23) mg/dL Creatinine 2.1 H (0.7-1.2) mg/dL GFR Calculation 31.9 L (90-130) mL/min Glucose 394 H (65-115) mg/dL Calculated Osmolal ity 306 H (285-295) mOsm/k g Lactic Acid 1.3 (0.5-2.2) mmol/L Calcium 8.6 (8.5-10.5) mg/dL Total Bilirubin 0.2 (0.15-1.2) mg/dL AST 11 (0-40) U/L ALT 9 (0-41) U/L Alkaline Phosphata se 106 (40-130) IU/L Troponin T Baselin e 73 H (0-15) ng/L NT-Pro-B Natriuret Pep 5037 H (0-125) pg/mL Total Protein 6.8 (6.6-8.7) g/dL Albumin 3.1 L (3.5-5.2) g/dL Globulin 3.7 (1.3-4.6) g/dL Imaging Data^: CXR: Radiologist's impression: Chronic scarring with no acute findings EKG Data^: EKG 1: Attestation: I personally reviewed and interpreted this EKG as follows: EKG Interpretation Date: 11/04/20 EKG interpretation time: 03:36 Interpretation: sinus tach hr [address] elevation qrs 97 qtc 398 Discharge Plan Discharge Patient Disposition: Home Clinical Impression: COPD (chronic obstructive pulmonary disease) Qualifiers: COPD type: unspecified COPD Qualified Code(s): J44.9 - Chronic obstructive pulmonary disease, unspecified Condition: Stable Prescriptions: New prednisone 50 mg tablet 50 mg PO DAILY Qty: 5 RF: 0 No Action albuterol sulfate 2.5 mg /3 mL (0.083 %) solution for nebulization 2.5 mg INHALATION Q4H PRN (Reason: Shortness Of Breath) RF: 0 ondansetron HCl [Zofran] 4 mg Tablet 4 mg PO Q4H PRN (Reason: Nausea) RF: 0 magnesium hydroxide [Milk of Magnesia] 400 mg/5 mL Suspension 30 ml PO DAILY PRN (Reason: CONSTIPATON) RF: 0 Mucinex DM 30-600 mg Tablet Extended Release 12 Hr 1 tab PO BID@ RF: 0 Hair,Skin and Nails 1 mg iron-66.7 mcg-1,000 mcg Tablet 1 tab PO DAILY@ RF: 0 citalopram 20 mg tablet 20 mg PO DAILY@ RF: 0 pantoprazole 40 mg tablet,delayed release (DR/EC) 40 mg PO BID@ RF: 0 polyethylene glycol 3350 [Miralax] 17 gram Powder In Packet 17 g PO DAILY@08 RF: 0 sucralfate 1 gram Tablet 1 g PO BID@ RF: 0 ferrous sulfate 325 mg (65 mg iron) Tablet 325 mg PO BID@ RF: 0 Pro-Stat AWC 17-100 gram-kcal/30 mL Liquid 1 ea PO BID@ RF: 0 vancomycin 750 mg recon soln See Rx Instructions .ROUTE .COMPLEX Qty: 5 RF: 0 Lasix 40 mg Tablet 40 mg PO BID Qty: 0 RF: 0 bupropion HCl [Wellbutrin SR] 150 mg Tablet Sustained-Release 12 Hr 150 mg PO Q12H RF: 0 acetaminophen 325 mg Tablet 650 mg PO Q4H PRN (Reason: Pain) Qty: 0 RF: 0 clopidogrel [Plavix] 75 mg Tablet 75 mg PO DAILY@ RF: 0 aspirin 81 mg Tablet,Delayed Release (Dr/Ec) 81 mg PO DAILY@ RF: 0 carvedilol 3.125 mg Tablet 3.125 mg PO BID@ RF: 0 tamsulosin 0.4 mg Capsule 0.4 mg PO DAILY@2099 RF: 0 bisacodyl 10 mg Suppository 10 mg MI DAILY PRN (Reason: CONSTIPATED) RF: 0 nitroglycerin 0.4 mg Tablet, Sublingual 0.4 mg SUBLINGUAL Q5M PRN (Reason: Chest Pain) RF: 0 budesonide 0.5 mg/2 mL suspension for nebulization 2 ml inhalation BID@ RF: 0 loratadine 10 mg Tablet 10 mg PO DAILY@ RF: 0 insulin lispro [Humalog KwikPen Insulin] 100 unit/mL Insulin Pen See Rx Instructions .ROUTE .COMPLEX RF: 0 rosuvastatin [Crestor] 20 mg Tablet 20 mg PO DAILY@ RF: 0 magnesium L-lactate [Magtab] 84 mg Tablet Extended Release 84 mg PO DAILY@ RF: 0 ipratropium-albuterol 0.5 mg-3 mg(2.5 mg base)/3 mL Solution For Nebulization 3 ml INHALATION BID@ PRN (Reason: Shortness Of Breath) RF: 0 TwoCal HN 0.08-2 gram-kcal/mL Liquid 1 ea PO BID@ RF: 0 Glucagon (HCl) Emergency Kit 1 mg Recon Soln 1 mg SUBCUT Q20M PRN (Reason: BLOOD SUGAR) RF: 0 Discharge Orders: Discharge ED (Routine); Ordered 11/04/20 Ordered By: Chris Ruiz Referrals: Hiram Black DO [Primary Care Provider] - 1-3 days Discharge Diet: Advance as tolerated Discharge Activity: Resume usual activity Patient Instructions: Chronic Obstructive Pulmonary Disease (ED) Coding Level of Care Code ED Food Preservation Scientist for Chg Fwd Exam Comprehensive
[2020-11-04 03:31] LABS: ABG PCO2 56.9 mmHg (35-45); ABG PH Result 7.27 (7.35-7.45); Arterial Blood Gas Hematocrit 28.9 % (42-52); Blood Gas Allen Test Pos; Blood Gas Sample Site Radial, left; Blood Gas Sample Type Arterial; HCO3 ABG 26.3 mmol/L (22-26); Oxygen Device NC
[2020-11-04] MEDS: ipratropium-albuterol 3 mL Neb INHALATION (03:39)
[2020-11-04 03:44] LABS: Basophils # 0.1 10^3/uL (0.0-0.1); Basophils % 1.1 %; Eosinophils # 0.6 10^3/uL (0.0-0.8); Eosinophils % 4.9 %; Hematocrit 30.8 % (42.0-52.0); Hemoglobin 9.4 g/dL (11.7-16.6); Lymphocytes # 1.6 10^3/uL (0.8-4.8); Lymphocytes % 14.2 %; Mean Corpuscular HGB Conc 30.5 g/dL (30.0-36.0); Mean Corpuscular Hemoglobin 27.2 pg (28.0-34.0); Mean Corpuscular Volume 89.3 fL (80-94); Monocytes # 0.7 10^3/uL (0.2-0.9); Monocytes % 5.8 %; Neutrophils # 8.44 10^3/uL (1.8-7.7); Neutrophils % 73.3 %; Nucleated Red Blood Cells % 0 %; Platelet Count 341 10^3/cmm (130-400); Red Blood Count 3.45 10^6/uL (4.1-5.3); Red Cell Distribution Width 16.5 % (12.1-15.1); White Blood Count 11.5 10^3/uL (4.0-10.0)
[2020-11-04 03:51] LABS: INR 1.02 (0.8-1.2)
[2020-11-04 04:00] LABS: Lactic Sepsis W/Reflex 1.3 mmol/L (0.5-2.2)
[2020-11-04 04:01] LABS: Troponin(5th) Baseline 73 ng/L (0-15)
[2020-11-04 04:06] LABS: Alanine Aminotransferase 9 U/L (0-41); Albumin Level 3.1 g/dL (3.5-5.2); Alkaline Phosphatase 106 IU/L (40-130); Anion Gap 18.6 (5-19); Aspartate Amino Transferase 11 U/L (0-40); Blood Urea Nitrogen 44 mg/dL (8-23); Calcium 8.6 mg/dL (8.5-10.5); Carbon Dioxide 22 mmol/L (22-29); Chloride 99 mmol/L (98-107); Globulin 3.7 g/dL (1.3-4.6); Glomerular Filtration Rate 31.9 mL/min (90-130); Glucose 394 mg/dL (65-115); NT Pro B Type Natriuretic Pept 5037 pg/mL (0-125); Osmolality Calculated 306 mOsm/kg (285-295); Potassium 5.6 mmol/L (3.5-5.1); Sodium 134 mmol/L (136-145); Total Bilirubin 0.2 mg/dL (0.15-1.2); Total Protein 6.8 g/dL (6.6-8.7)
[2020-11-04] MEDS: insulin regular-human 100 units/1 mL 8 UNIT IVP (05:17)
[2020-11-04 05:56] LABS: Glucose Point of Care 452 mg/dL (70-110)
[2020-11-04] MEDS: insulin regular-human 100 units/1 mL 5 UNIT IVP (06:01)
[2020-11-04 06:45] LABS: Glucose Point of Care 336 mg/dL (70-110)
== END 2020-11-04 08:42 | disposition home or self-care (01) ==
PROVIDERS: Emergency Provider Emergency Medicine; PCP Internal Medicine
DX: J44.9 Chronic obstructive pulmonary disease, unspecified (principal); Z79.82 Long term (current) use of aspirin; Z79.02 Long term (current) use of antithrombotics/antiplatelets; Z79.4 Long term (current) use of insulin; E11.22 Type 2 diabetes mellitus with diabetic chronic kidney disease; I13.0 Hypertensive heart and chronic kidney disease with heart failure and stage 1 through stage 4 chronic kidney disease, or unspecified chronic kidney disease; N18.30 Chronic kidney disease, stage 3 unspecified; I50.22 Chronic systolic (congestive) heart failure; I25.10 Atherosclerotic heart disease of native coronary artery without angina pectoris; Z98.61 Coronary angioplasty status; F17.210 Nicotine dependence, cigarettes, uncomplicated
CPT/HCPCS: 36416; 36600; 71045; 80053; 82803; 82962; 83605; 83880; 84484; 85025; 85610; 87040; 93005; 94640; 96374; 96375; 96376; 99284; J1815; J2930

== ENCOUNTER 2020-11-07 08:18 | Outpatient (CLI) | payer MEDICARE, MEDICAID, SELFPAY ==
[2020-11-07 09:48] LABS: Vancomycin Trough 27.8 ug/mL (10-15)
== END 2020-11-07 08:19 | disposition home or self-care (01) ==
LOC: LAB 08:22
PROVIDERS: PCP Internal Medicine; Visit Provider Internal Medicine
DX: N10 Acute pyelonephritis (principal)
CPT/HCPCS: 80202

== ENCOUNTER 2020-11-23 17:06 | Emergency (ER) | payer MEDICARE, MEDICAID, SELFPAY ==
[2020-11-23 17:07] VITALS: BP 137/64; PULSE 78; RESP 17; O2SAT 100; BMI 18.2
--- NOTE | 2020-11-23 17:16 | XR_ITS ---
WS: [id number] Portable AP upright chest, 11/23/2020 Clinical Data: dyspnea/AMS Comparison: Portable chest, 11/04/2020. Findings: The heart remains enlarged. There is right basilar consolidation which has improved slightl y compared to the prior study. The left lung is clear. XR/XR chest 1V portable [id number] Impression: 1. No change in cardiomegaly. 2. Minimal improvement in right basilar consolidation.
--- NOTE | 2020-11-23 17:16 | CTR_ITS ---
PROCEDURE INFORMATION: Exam: CT Head Without Contrast Exam date and time: 11/23/2020 5:18 PM Age: 65 years old Clinical indication: Altered mental status/memory loss TECHNIQUE: Imaging protocol: Computed tomography of the head without contrast. Total images: 207 Radiation optimization: All CT scans at this facility use at least one of these dose optimization techniques: automated exposure control; mA and/or kV adjustment per patient size (includes targeted exams where dose is matched to clinical indication); or iterative reconstruction. COMPARISON: CT head wo con* [id number] 09/12/2020 5:27 PM RADIATION DOSE METRICS: Total DLP (mGy-cm): 882.67 FINDINGS: Brain: No evidence of active or acute intracranial pathologic process, hemorrhage, or trauma. Advanced small vessel ischemic disease with senile periventricular leukomalacia. Stable old right frontal lobe focal infarction. Antecedent appearing focal periventricular centrum semi ovale left frontal lobe infarction of that has occurred since 09/12/2020. Old left cerebellar infarction stable. Advanced cerebral and cerebellar atrophy with ventricular dilatation greater than that anticipated for patient's chronological age. No mass effect. No midline shift. No generalized cerebral edema. Cerebral ventricles: Ventriculomegaly greater than the degree of atrophy present with corpus callosum thinning. Consideration might be given to normal pressure hydrocephalus. Bones/joints: Unremarkable. No acute fracture. Paranasal sinuses: Visualized sinuses are unremarkable. No fluid levels. Mastoid air cells: Visualized mastoid air cells are well aerated. Soft tissues: Unremarkable. CT/CT head wo con* [id number] IMPRESSION: 1. No evidence of active or acute intracranial pathologic process, hemorrhage, or trauma. 2. Chronic and age related findings as detailed in text. Radiation Dose CTDIVOL = (mGy): DLP = 882.67 (mGy-cm)
--- NOTE | 2020-11-23 17:27 | W.ED.GENADLT ---
Documented by User: Rustam Morales MD 11/28/20 11:02 HPI - General Adult General: Chief complaint: General Medical Stated complaint: HYPOGLYCEMIA Time Seen by Provider: 11/23/20 17:16 History of Present Illness: HPI narrative: The patient is a 65 year old male with PMH DM2 with bilateral BKA, CHF, CKD, COPD, HTN who comes from correction after he was found slumped over, less responsive and hypoglycemic. They said earlier his glucose was above 200 and given his insulin and not eat lunch and found glucose in the 50s. They gave glucagon shot there. EMS found glucose in 82 when they arrived. He also has altered mental status/less responsive. Wears 3 liters oxygen daily. He is a DNR. Review of Systems General: Reports: ROS unobtainable due to mental status PFS ED PFSH: Medical History (Updated 11/23/20 @ 20:04 by Chris Ruiz MD) Abnormal cystoscopy Acute encephalopathy Anxiety BPH (benign prostatic hyperplasia) Chronic systolic CHF (congestive heart failure) CKD stage 3 secondary to diabetes COPD (chronic obstructive pulmonary disease) Coronary artery disease COVID-19 Depression Dysphagia History of urinary retention Hypertension Peripheral vascular disease Type 2 diabetes mellitus Urgency incontinence Surgical History Coronary angioplasty status History of carpal tunnel surgery History of hip surgery S/P bilateral BKA (below knee amputation) S/P right coronary artery (RCA) stent placement Family History Other CAD (coronary artery disease) Diabetes Social History Smoking and tobacco status: current every day smoker cigarettes Packs smoked per day: 0.5 Years cigarettes smoked: 59 Second hand smoke exposure: Yes Alcohol intake: never Lives independently: No Housing: Longterm Marital status: Current occupational status: retired and disabled History of recent travel: No Current gender identity: Male Physical Exam Narrative: EXAM NARRATIVE: Rales on lungs, reduced mental status. Bilateral BKA chronically. Const: COMMON NORMALS: alert GENERAL APPEARANCE: lethargic and ill appearing ORIENTATION/CONSCIOUSNESS: Yes oriented to person and Yes lethargic HENMT: COMMON NORMALS: normocephalic, external ears normal and Normal external nose present HEAD & SCALP: normal to inspection and normocephalic NOSE: Normal external nose present EXTERNAL EAR: Yes external ears normal MOUTH: Normal oral and palatal mucosa present THROAT: posterior oropharynx normal Eye: COMMON NORMALS: Equal, round and reactive pupils present and EOMs intact bilaterally GENERAL EYE: appearance normal, both eyes and all related structures PUPIL: Yes Equal, round and reactive pupils present Neck/C-Spine: COMMON NORMALS: full ROM, no lymphadenopathy, no meningeal signs and no JVD GENERAL: Yes normal visual inspection Lymph: LYMPHATIC: no lymphadenopathy noted Chest: COMMONS NORMALS: normal inspection of the chest and normal palpation of entire chest wall Resp: EFFORT & INSPECTION: Yes tachypneic, Yes respiratory distress and Yes uses accessory muscles AUSCULTATION: wheezes OTHER: tachypnea, wheezes, increased work of breathing. Mild respiratory distress. Improved much after albuterol. Cardio: COMMON NORMALS: no JVD, regular rate, regular rhythm, S1 normal heart sound present, S2 normal heart sound present and Peripheral pulses 2+ throughout RATE: regular rate RHYTHM: regular rhythm HEART SOUNDS: S1 normal heart sound present and S2 normal heart sound present PERIPHERAL PULSES: Peripheral pulses 2+ throughout GI: COMMON NORMALS: Normal to inspection, nondistended, normoactive bowel sounds present, Soft to palpation, non-tender and no masses INSPECTION: Yes normal to inspection PALPATION: Yes Soft to palpation : COMMON NORMALS: Yes no CVA tenderness BLADDER/KIDNEY EXAM: Yes no CVA tenderness Back/Pelvis: COMMON NORMALS: no CVA tenderness, thoracic and lumbar spine normal to inspection, no thoracic nor lumbar tenderness and thoraco-lumbar ROM normal Extremity: COMMON NORMALS: normal to inspection, full ROM, capillary refill normal, no joint enlargement and no pedal edema GENERAL: Yes normal exam except as noted Neuro: COMMON NORMALS: CN's II-XII intact bilaterally, moves all extremities, no focal motor deficits, no sensory deficits noted and gait normal SENSORIUM/ORIENTATION: Yes alert, Yes oriented to person and Yes lethargic MENINGEAL SIGNS: Yes no meningeal signs Psych: COMMON NORMALS: mental status grossly normal, Normal thought process present, cooperative, normal affect and speech normal ATTITUDE: Yes calm SPEECH: Yes normal speech THOUGHT PROCESS: Normal thought process present Skin: COMMON NORMALS: no rashes or lesions noted GENERAL SKIN EXAM: no rashes or lesions noted Course Vital Signs: Vital signs: Vital Signs Temperature 97.5 F L 11/23/20 21:55 Pulse Rate 77 11/23/20 21:55 Respiratory Rate 18 11/23/20 21:55 Blood Pressure 128/65 11/23/20 21:55 Pulse Oximetry 100 11/23/20 21:55 MDM - General Adult MDM Narrative: Medical decision making narrative: Transitioned care at shift change to Dr. Ruiz. Lab Data: Labs: Lab Results 11/23/20 11/23/20 11/23/20 Range/Units 17:22 17:22 17:22 WBC 8.8 (4.0-10.0) 10^3/ uL RBC 3.68 L (4.1-5.3) 10^6/u L Hgb 10.1 L (11.7-16.6) g/dL Hct 33.0 L (42.0-52.0) % MCV 89.7 (80-94) fL MCH 27.4 L (28.0-34.0) pg MCHC 30.6 (30.0-36.0) g/dL RDW 15.9 H (12.1-15.1) % Plt Count 297 (130-400) 10^3/c mm MPV 10.4 (7.4-10.4) fL Neut % (Auto) 67.9 % Lymph % (Auto) 15.6 % [place] % (Auto) 9.9 % Eos % (Auto) 4.9 % Baso % (Auto) 1.2 % Neut # (Auto) 6.00 (1.8-7.7) 10^3/u L Lymph # (Auto) 1.4 (0.8-4.8) 10^3/u L [place] # (Auto) 0.9 (0.2-0.9) 10^3/u L Eos # (Auto) 0.4 (0.0-0.8) 10^3/u L Baso # (Auto) 0.1 (0.0-0.1) 10^3/u L Nucleated RBC % (a uto) 0 % Nucleated RBCs # 0.0 /100WBC Specimen Type Sample Site ABG pH (7.35-7.45) ABG pCO2 (35-45) mmHg ABG pO2 (80.0-100.0) mmH g ABG HCO3 (22-26) mmol/L ABG Base Excess (-2.0-2.0) mmol/ L Pop Test Hematocrit (42-52) % Hgb O2 Saturation (95-100) % Carboxyhemoglobin (0.4-20.1) %THgb Methemoglobin (0.4-1.5) % Total Hemoglobin (14-18) g/dL O2 Delivery Device O2 Liters/Min % FiO2 % Patient Safety Manager ID Sodium 141 (136-145) mmol/L Potassium 4.0 (3.5-5.1) mmol/L Chloride 104 (98-107) mmol/L Carbon Dioxide 25 (22-29) mmol/L Anion Gap 16.0 (5-19) BUN 46 H (8-23) mg/dL Creatinine 2.4 H (0.7-1.2) mg/dL GFR Calculation 27.3 L (90-130) mL/min Glucose 80 (65-115) mg/dL POC Glucose (70-110) mg/dL Calculated Osmolal ity 303 H (285-295) mOsm/k g Lactate 1.5 (0.5-2.2) mmol/L Calcium 8.8 (8.5-10.5) mg/dL Total Bilirubin 0.2 (0.15-1.2) mg/dL AST 11 (0-40) U/L ALT 13 (0-41) U/L Alkaline Phosphata se 102 (40-130) IU/L Troponin T Baselin e (0-15) ng/L Troponin T 120 Min tolowa dee-ni' (0-15) ng/L Delta Troponin T (0-10) ABS# NT-Pro-B Natriuret Pep 6387 H (0-125) pg/mL Total Protein 6.8 (6.6-8.7) g/dL Albumin 3.5 (3.5-5.2) g/dL Globulin 3.3 (1.3-4.6) g/dL Urine Color (Yellow) Urine Appearance (CLEAR) Urine pH (5-7) Ur Specific Gravit y (1.005-1.030) Urine Protein (Negative) Urine Glucose (UA) (Normal) Urine Ketones (Negative) Urine Blood (Negative) Urine Nitrate (Negative) Urine Bilirubin (Negative) Urine Urobilinogen (Negative) mg/dL Ur Leukocyte Erlinda ase (Negative) Urine RBC (0-2) /hpf Urine WBC (0-5) /hpf Ur Squamous Epith Cells (0-5) /hpf Amorphous Sediment Urine Bacteria (NONE) /hpf 11/23/20 11/23/20 11/23/20 Range/Units 17:22 17:32 17:58 WBC (4.0-10.0) 10^3/ uL RBC (4.1-5.3) 10^6/u L Hgb (11.7-16.6) g/dL Hct (42.0-52.0) % MCV (80-94) fL MCH (28.0-34.0) pg MCHC (30.0-36.0) g/dL RDW (12.1-15.1) % Plt Count (130-400) 10^3/c mm MPV (7.4-10.4) fL Neut % (Auto) % Lymph % (Auto) % [place] % (Auto) % Eos % (Auto) % Baso % (Auto) % Neut # (Auto) (1.8-7.7) 10^3/u L Lymph # (Auto) (0.8-4.8) 10^3/u L [place] # (Auto) (0.2-0.9) 10^3/u L Eos # (Auto) (0.0-0.8) 10^3/u L Baso # (Auto) (0.0-0.1) 10^3/u L Nucleated RBC % (a uto) % Nucleated RBCs # /100WBC Specimen Type Arterial Sample Site Brachial, left ABG pH 7.39 (7.35-7.45) ABG pCO2 48.6 H (35-45) mmHg ABG pO2 87.8 (80.0-100.0) mmH g ABG HCO3 29.4 H (22-26) mmol/L ABG Base Excess 3.8 H (-2.0-2.0) mmol/ L Pop Test Pos Hematocrit 29.5 L (42-52) % Hgb O2 Saturation 95.3 (95-100) % Carboxyhemoglobin 1.3 (0.4-20.1) %THgb Methemoglobin 1.0 (0.4-1.5) % Total Hemoglobin 9.6 L (14-18) g/dL O2 Delivery Device Nc O2 Liters/Min 3.0 % FiO2 32.0 % Patient Safety Manager ID Cak Sodium (136-145) mmol/L Potassium (3.5-5.1) mmol/L Chloride (98-107) mmol/L Carbon Dioxide (22-29) mmol/L Anion Gap (5-19) BUN (8-23) mg/dL Creatinine (0.7-1.2) mg/dL GFR Calculation (90-130) mL/min Glucose (65-115) mg/dL POC Glucose 92 (70-110) mg/dL Calculated Osmolal ity (285-295) mOsm/k g Lactate (0.5-2.2) mmol/L Calcium (8.5-10.5) mg/dL Total Bilirubin (0.15-1.2) mg/dL AST (0-40) U/L ALT (0-41) U/L Alkaline Phosphata se (40-130) IU/L Troponin T Baselin e 75 H (0-15) ng/L Troponin T 120 Min tolow[place] dee-ni' (0-15) ng/L Delta Troponin T (0-10) ABS# NT-Pro-B Natriuret Pep (0-125) pg/mL Total Protein (6.6-8.7) g/dL Albumin (3.5-5.2) g/dL Globulin (1.3-4.6) g/dL Urine Color (Yellow) Urine Appearance (CLEAR) Urine pH (5-7) Ur Specific Gravit y (1.005-1.030) Urine Protein (Negative) Urine Glucose (UA) (Normal) Urine Ketones (Negative) Urine Blood (Negative) Urine Nitrate (Negative) Urine Bilirubin (Negative) Urine Urobilinogen (Negative) mg/dL Ur Leukocyte Erlinda ase (Negative) Urine RBC (0-2) /hpf Urine WBC (0-5) /hpf Ur Squamous Epith Cells (0-5) /hpf Amorphous Sediment Urine Bacteria (NONE) /hpf 11/23/20 11/23/20 11/23/20 Range/Units 18:26 19:23 19:26 WBC (4.0-10.0) 10^3/ uL RBC (4.1-5.3) 10^6/u L Hgb (11.7-16.6) g/dL Hct (42.0-52.0) % MCV (80-94) fL MCH (28.0-34.0) pg MCHC (30.0-36.0) g/dL RDW (12.1-15.1) % Plt Count (130-400) 10^3/c mm MPV (7.4-10.4) fL Neut % (Auto) % Lymph % (Auto) % [place] % (Auto) % Eos % (Auto) % Baso % (Auto) % Neut # (Auto) (1.8-7.7) 10^3/u L Lymph # (Auto) (0.8-4.8) 10^3/u L [place] # (Auto) (0.2-0.9) 10^3/u L Eos # (Auto) (0.0-0.8) 10^3/u L Baso # (Auto) (0.0-0.1) 10^3/u L Nucleated RBC % (a uto) % Nucleated RBCs # /100WBC Specimen Type Sample Site ABG pH (7.35-7.45) ABG pCO2 (35-45) mmHg ABG pO2 (80.0-100.0) mmH g ABG HCO3 (22-26) mmol/L ABG Base Excess (-2.0-2.0) mmol/ L Pop Test Hematocrit (42-52) % Hgb O2 Saturation (95-100) % Carboxyhemoglobin (0.4-20.1) %THgb Methemoglobin (0.4-1.5) % Total Hemoglobin (14-18) g/dL O2 Delivery Device O2 Liters/Min % FiO2 % Patient Safety Manager ID Sodium (136-145) mmol/L Potassium (3.5-5.1) mmol/L Chloride (98-107) mmol/L Carbon Dioxide (22-29) mmol/L Anion Gap (5-19) BUN (8-23) mg/dL Creatinine (0.7-1.2) mg/dL GFR Calculation (90-130) mL/min Glucose (65-115) mg/dL POC Glucose 162 H (70-110) mg/dL Calculated Osmolal ity (285-295) mOsm/k g Lactate (0.5-2.2) mmol/L Calcium (8.5-10.5) mg/dL Total Bilirubin (0.15-1.2) mg/dL AST (0-40) U/L ALT (0-41) U/L Alkaline Phosphata se (40-130) IU/L Troponin T Baselin e (0-15) ng/L Troponin T 120 Min tolowa dee-ni' 74.10 H (0-15) ng/L Delta Troponin T -0.90 L (0-10) ABS# NT-Pro-B Natriuret Pep (0-125) pg/mL Total Protein (6.6-8.7) g/dL Albumin (3.5-5.2) g/dL Globulin (1.3-4.6) g/dL Urine Color Yellow (Yellow) Urine Appearance Hazy A (CLEAR) Urine pH 5 (5-7) Ur Specific Gravit y 1.025 (1.005-1.030) Urine Protein Neg (Negative) Urine Glucose (UA) Norm (Normal) Urine Ketones Negative (Negative) Urine Blood Neg (Negative) Urine Nitrate Negative (Negative) Urine Bilirubin Neg (Negative) Urine Urobilinogen 4 H (Negative) mg/dL Ur Leukocyte Erlinda ase 1+ H (Negative) Urine RBC None (0-2) /hpf Urine WBC 5-10 H (0-5) /hpf Ur Squamous Epith Cells 0-4 H (0-5) /hpf Amorphous Sediment Not Reportable Urine Bacteria 1+ H (NONE) /hpf Discharge Plan Discharge Patient Disposition: Home Clinical Impression: Hypoglycemia, Weakness Condition: Stable Prescriptions: No Action albuterol sulfate 2.5 mg /3 mL (0.083 %) solution for nebulization 2.5 mg INHALATION Q4H PRN (Reason: Shortness Of Breath) RF: 0 ondansetron HCl [Zofran] 4 mg Tablet 4 mg PO Q4H PRN (Reason: Nausea) RF: 0 Mucinex DM 30-600 mg Tablet Extended Release 12 Hr 1 tab PO BID@, RF: 0 Hair,Skin and Nails 1 mg iron-66.7 mcg-1,000 mcg Tablet 1 tab PO DAILY@09 RF: 0 citalopram 20 mg tablet 20 mg PO DAILY@09 RF: 0 polyethylene glycol 3350 [Miralax] 17 gram Powder In Packet 17 g PO DAILY@09 RF: 0 sucralfate 1 gram Tablet 1 g PO BID@ RF: 0 ferrous sulfate 325 mg (65 mg iron) Tablet 325 mg PO BID@ RF: 0 Pro-Stat AWC 17-100 gram-kcal/30 mL Liquid 1 ea PO BID@ RF: 0 lorazepam 0.5 mg Tablet 0.5 mg PO DAILY PRN (Reason: UNKNOWN) RF: 0 Enema Disposable 19-7 gram/118 mL Enema 118 ml WI DAILY PRN (Reason: Constipation) RF: 0 insulin lispro 100 unit/mL Insulin Pen 4 unit SUBCUT TID@0630,1130,1630 RF: 0 Lantus Solostar U-100 Insulin 100 unit/mL (3 mL) Insulin Pen 12 unit SUBCUT DAILY@0800 RF: 0 Lasix 40 mg tablet 40 mg PO BID@ RF: 0 bupropion HCl [Wellbutrin SR] 150 mg Tablet Sustained-Release 12 Hr 150 mg PO Q12H RF: 0 acetaminophen 325 mg Tablet 650 mg PO Q4H PRN (Reason: Pain) Qty: 0 RF: 0 clopidogrel [Plavix] 75 mg Tablet 75 mg PO DAILY@ RF: 0 aspirin 81 mg Tablet,Delayed Release (Dr/Ec) 81 mg PO DAILY@ RF: 0 carvedilol 3.125 mg Tablet 3.125 mg PO BID@ RF: 0 tamsulosin 0.4 mg Capsule 0.4 mg PO DAILY@2099 RF: 0 bisacodyl 10 mg Suppository 10 mg WI DAILY PRN (Reason: CONSTIPATED) RF: 0 nitroglycerin 0.4 mg Tablet, Sublingual 0.4 mg SUBLINGUAL Q5M PRN (Reason: Chest Pain) RF: 0 budesonide 0.5 mg/2 mL suspension for nebulization 2 ml inhalation BID@ RF: 0 loratadine 10 mg Tablet 10 mg PO DAILY@ RF: 0 insulin lispro [Humalog KwikPen Insulin] 100 unit/mL Insulin Pen See Rx Instructions .ROUTE .COMPLEX RF: 0 rosuvastatin [Crestor] 20 mg Tablet 20 mg PO DAILY@ RF: 0 magnesium L-lactate [Magtab] 84 mg Tablet Extended Release 84 mg PO DAILY@ RF: 0 ipratropium-albuterol 0.5 mg-3 mg(2.5 mg base)/3 mL Solution For Nebulization 3 ml INHALATION BID@ PRN (Reason: Shortness Of Breath) RF: 0 TwoCal HN 0.08-2 gram-kcal/mL Liquid 1 ea PO BID@ RF: 0 Glucagon (HCl) Emergency Kit 1 mg Recon Soln 1 mg SUBCUT Q20M PRN (Reason: BLOOD SUGAR) RF: 0 Discharge Orders: Discharge ED (Routine); Ordered 11/23/20 Ordered By: Chris Ruiz Referrals: Hiram Black DO [Primary Care Provider] - 1-3 days Discharge Diet: Advance as tolerated Discharge Activity: Resume usual activity Patient Instructions: Diabetic Hypoglycemia (ED) Coding Level of Care Code ED Driving Teacher for Chg Fwd Exam Comprehensive Documented by User: Chris Ruiz MD 11/23/20 20:11 HPI - General Adult General: Chief complaint: General Medical Stated complaint: HYPOGLYCEMIA Time Seen by Provider: 11/23/20 17:16 PENDING SALE TO [facility] ED PFSH: Medical History (Updated 11/23/20 @ 20:04 by Chris Ruiz MD) Abnormal cystoscopy Acute encephalopathy Anxiety BPH (benign prostatic hyperplasia) Chronic systolic CHF (congestive heart failure) CKD stage 3 secondary to diabetes COPD (chronic obstructive pulmonary disease) Coronary artery disease COVID-19 Depression Dysphagia History of urinary retention Hypertension Peripheral vascular disease Type 2 diabetes mellitus Urgency incontinence Surgical History Coronary angioplasty status History of carpal tunnel surgery History of hip surgery S/P bilateral BKA (below knee amputation) S/P right coronary artery (RCA) stent placement Family History Other CAD (coronary artery disease) Diabetes Social History Smoking and tobacco status: current every day smoker cigarettes Packs smoked per day: 0.5 Years cigarettes smoked: 59 Second hand smoke exposure: Yes Alcohol intake: never Lives independently: No Housing: Longterm Marital status: Current occupational status: retired and disabled History of recent travel: No Current gender identity: Male Course Vital Signs: Vital signs: Vital Signs Temperature 97.5 F L 11/23/20 21:55 Pulse Rate 77 11/23/20 21:55 Respiratory Rate 18 11/23/20 21:55 Blood Pressure 128/65 11/23/20 21:55 Pulse Oximetry 100 11/23/20 21:55 MDM - General Adult MDM Narrative: Medical decision making narrative: Tashi presents with hyperglycemia that is been normal here. Patient's been well-appearing here and is stable for discharge. Patient has no acute changes.. Lab Data: Labs: Lab Results 11/23/20 11/23/20 11/23/20 Range/Units 17:22 17:22 17:22 WBC 8.8 (4.0-10.0) 10^3/ uL RBC 3.68 L (4.1-5.3) 10^6/u L Hgb 10.1 L (11.7-16.6) g/dL Hct 33.0 L (42.0-52.0) % MCV 89.7 (80-94) fL MCH 27.4 L (28.0-34.0) pg MCHC 30.6 (30.0-36.0) g/dL RDW 15.9 H (12.1-15.1) % Plt Count 297 (130-400) 10^3/c mm MPV 10.4 (7.4-10.4) fL Neut % (Auto) 67.9 % Lymph % (Auto) 15.6 % [place] % (Auto) 9.9 % Eos % (Auto) 4.9 % Baso % (Auto) 1.2 % Neut # (Auto) 6.00 (1.8-7.7) 10^3/u L Lymph # (Auto) 1.4 (0.8-4.8) 10^3/u L [place] # (Auto) 0.9 (0.2-0.9) 10^3/u L Eos # (Auto) 0.4 (0.0-0.8) 10^3/u L Baso # (Auto) 0.1 (0.0-0.1) 10^3/u L Nucleated RBC % (a uto) 0 % Nucleated RBCs # 0.0 /100WBC Specimen Type Sample Site ABG pH (7.35-7.45) ABG pCO2 (35-45) mmHg ABG pO2 (80.0-100.0) mmH g ABG HCO3 (22-26) mmol/L ABG Base Excess (-2.0-2.0) mmol/ L Pop Test Hematocrit (42-52) % Hgb O2 Saturation (95-100) % Carboxyhemoglobin (0.4-20.1) %THgb Methemoglobin (0.4-1.5) % Total Hemoglobin (14-18) g/dL O2 Delivery Device O2 Liters/Min % FiO2 % Patient Safety Manager ID Sodium 141 (136-145) mmol/L Potassium 4.0 (3.5-5.1) mmol/L Chloride 104 (98-107) mmol/L Carbon Dioxide 25 (22-29) mmol/L Anion Gap 16.0 (5-19) BUN 46 H (8-23) mg/dL Creatinine 2.4 H (0.7-1.2) mg/dL GFR Calculation 27.3 L (90-130) mL/min Glucose 80 (65-115) mg/dL POC Glucose (70-110) mg/dL Calculated Osmolal ity 303 H (285-295) mOsm/k g Lactate 1.5 (0.5-2.2) mmol/L Calcium 8.8 (8.5-10.5) mg/dL Total Bilirubin 0.2 (0.15-1.2) mg/dL AST 11 (0-40) U/L ALT 13 (0-41) U/L Alkaline Phosphata se 102 (40-130) IU/L Troponin T Baselin e (0-15) ng/L Troponin T 120 Min tolowa dee-ni' (0-15) ng/L Delta Troponin T (0-10) ABS# NT-Pro-B Natriuret Pep 6387 H (0-125) pg/mL Total Protein 6.8 (6.6-8.7) g/dL Albumin 3.5 (3.5-5.2) g/dL Globulin 3.3 (1.3-4.6) g/dL Urine Color (Yellow) Urine Appearance (CLEAR) Urine pH (5-7) Ur Specific Gravit y (1.005-1.030) Urine Protein (Negative) Urine Glucose (UA) (Normal) Urine Ketones (Negative) Urine Blood (Negative) Urine Nitrate (Negative) Urine Bilirubin (Negative) Urine Urobilinogen (Negative) mg/dL Ur Leukocyte Erlinda ase (Negative) Urine RBC (0-2) /hpf Urine WBC (0-5) /hpf Ur Squamous Epith Cells (0-5) /hpf Amorphous Sediment Urine Bacteria (NONE) /hpf 11/23/20 11/23/20 11/23/20 Range/Units 17:22 17:32 17:58 WBC (4.0-10.0) 10^3/ uL RBC (4.1-5.3) 10^6/u L Hgb (11.7-16.6) g/dL Hct (42.0-52.0) % MCV (80-94) fL MCH (28.0-34.0) pg MCHC (30.0-36.0) g/dL RDW (12.1-15.1) % Plt Count (130-400) 10^3/c mm MPV (7.4-10.4) fL Neut % (Auto) % Lymph % (Auto) % [place] % (Auto) % Eos % (Auto) % Baso % (Auto) % Neut # (Auto) (1.8-7.7) 10^3/u L Lymph # (Auto) (0.8-4.8) 10^3/u L [place] # (Auto) (0.2-0.9) 10^3/u L Eos # (Auto) (0.0-0.8) 10^3/u L Baso # (Auto) (0.0-0.1) 10^3/u L Nucleated RBC % (a uto) % Nucleated RBCs # /100WBC Specimen Type Arterial Sample Site Brachial, left ABG pH 7.39 (7.35-7.45) ABG pCO2 48.6 H (35-45) mmHg ABG pO2 87.8 (80.0-100.0) mmH g ABG HCO3 29.4 H (22-26) mmol/L ABG Base Excess 3.8 H (-2.0-2.0) mmol/ L Pop Test Pos Hematocrit 29.5 L (42-52) % Hgb O2 Saturation 95.3 (95-100) % Carboxyhemoglobin 1.3 (0.4-20.1) %THgb Methemoglobin 1.0 (0.4-1.5) % Total Hemoglobin 9.6 L (14-18) g/dL O2 Delivery Device Nc O2 Liters/Min 3.0 % FiO2 32.0 % Patient Safety Manager ID Cak Sodium (136-145) mmol/L Potassium (3.5-5.1) mmol/L Chloride (98-107) mmol/L Carbon Dioxide (22-29) mmol/L Anion Gap (5-19) BUN (8-23) mg/dL Creatinine (0.7-1.2) mg/dL GFR Calculation (90-130) mL/min Glucose (65-115) mg/dL POC Glucose 92 (70-110) mg/dL Calculated Osmolal ity (285-295) mOsm/k g Lactate (0.5-2.2) mmol/L Calcium (8.5-10.5) mg/dL Total Bilirubin (0.15-1.2) mg/dL AST (0-40) U/L ALT (0-41) U/L Alkaline Phosphata se (40-130) IU/L Troponin T Baselin e 75 H (0-15) ng/L Troponin T 120 Min tolow[place] dee-ni' (0-15) ng/L Delta Troponin T (0-10) ABS# NT-Pro-B Natriuret Pep (0-125) pg/mL Total Protein (6.6-8.7) g/dL Albumin (3.5-5.2) g/dL Globulin (1.3-4.6) g/dL Urine Color (Yellow) Urine Appearance (CLEAR) Urine pH (5-7) Ur Specific Gravit y (1.005-1.030) Urine Protein (Negative) Urine Glucose (UA) (Normal) Urine Ketones (Negative) Urine Blood (Negative) Urine Nitrate (Negative) Urine Bilirubin (Negative) Urine Urobilinogen (Negative) mg/dL Ur Leukocyte Erlinda ase (Negative) Urine RBC (0-2) /hpf Urine WBC (0-5) /hpf Ur Squamous Epith Cells (0-5) /hpf Amorphous Sediment Urine Bacteria (NONE) /hpf 11/23/20 11/23/20 11/23/20 Range/Units 18:26 19:23 19:26 WBC (4.0-10.0) 10^3/ uL RBC (4.1-5.3) 10^6/u L Hgb (11.7-16.6) g/dL Hct (42.0-52.0) % MCV (80-94) fL MCH (28.0-34.0) pg MCHC (30.0-36.0) g/dL RDW (12.1-15.1) % Plt Count (130-400) 10^3/c mm MPV (7.4-10.4) fL Neut % (Auto) % Lymph % (Auto) % [place] % (Auto) % Eos % (Auto) % Baso % (Auto) % Neut # (Auto) (1.8-7.7) 10^3/u L Lymph # (Auto) (0.8-4.8) 10^3/u L [place] # (Auto) (0.2-0.9) 10^3/u L Eos # (Auto) (0.0-0.8) 10^3/u L Baso # (Auto) (0.0-0.1) 10^3/u L Nucleated RBC % (a uto) % Nucleated RBCs # /100WBC Specimen Type Sample Site ABG pH (7.35-7.45) ABG pCO2 (35-45) mmHg ABG pO2 (80.0-100.0) mmH g ABG HCO3 (22-26) mmol/L ABG Base Excess (-2.0-2.0) mmol/ L Pop Test Hematocrit (42-52) % Hgb O2 Saturation (95-100) % Carboxyhemoglobin (0.4-20.1) %THgb Methemoglobin (0.4-1.5) % Total Hemoglobin (14-18) g/dL O2 Delivery Device O2 Liters/Min % FiO2 % Patient Safety Manager ID Sodium (136-145) mmol/L Potassium (3.5-5.1) mmol/L Chloride (98-107) mmol/L Carbon Dioxide (22-29) mmol/L Anion Gap (5-19) BUN (8-23) mg/dL Creatinine (0.7-1.2) mg/dL GFR Calculation (90-130) mL/min Glucose (65-115) mg/dL POC Glucose 162 H (70-110) mg/dL Calculated Osmolal ity (285-295) mOsm/k g Lactate (0.5-2.2) mmol/L Calcium (8.5-10.5) mg/dL Total Bilirubin (0.15-1.2) mg/dL AST (0-40) U/L ALT (0-41) U/L Alkaline Phosphata se (40-130) IU/L Troponin T Baselin e (0-15) ng/L Troponin T 120 Min tolowa dee-ni' 74.10 H (0-15) ng/L Delta Troponin T -0.90 L (0-10) ABS# NT-Pro-B Natriuret Pep (0-125) pg/mL Total Protein (6.6-8.7) g/dL Albumin (3.5-5.2) g/dL Globulin (1.3-4.6) g/dL Urine Color Yellow (Yellow) Urine Appearance Hazy A (CLEAR) Urine pH 5 (5-7) Ur Specific Gravit y 1.025 (1.005-1.030) Urine Protein Neg (Negative) Urine Glucose (UA) Norm (Normal) Urine Ketones Negative (Negative) Urine Blood Neg (Negative) Urine Nitrate Negative (Negative) Urine Bilirubin Neg (Negative) Urine Urobilinogen 4 H (Negative) mg/dL Ur Leukocyte Erlinda ase 1+ H (Negative) Urine RBC None (0-2) /hpf Urine WBC 5-10 H (0-5) /hpf Ur Squamous Epith Cells 0-4 H (0-5) /hpf Amorphous Sediment Not Reportable Urine Bacteria 1+ H (NONE) /hpf Discharge Plan Discharge Patient Disposition: Home Clinical Impression: Hypoglycemia, Weakness Condition: Stable Prescriptions: No Action albuterol sulfate 2.5 mg /3 mL (0.083 %) solution for nebulization 2.5 mg INHALATION Q4H PRN (Reason: Shortness Of Breath) RF: 0 ondansetron HCl [Zofran] 4 mg Tablet 4 mg PO Q4H PRN (Reason: Nausea) RF: 0 Mucinex DM 30-600 mg Tablet Extended Release 12 Hr 1 tab PO BID@ RF: 0 Hair,Skin and Nails 1 mg iron-66.7 mcg-1,000 mcg Tablet 1 tab PO DAILY@ RF: 0 citalopram 20 mg tablet 20 mg PO DAILY@ RF: 0 polyethylene glycol 3350 [Miralax] 17 gram Powder In Packet 17 g PO DAILY@ RF: 0 sucralfate 1 gram Tablet 1 g PO BID@ RF: 0 ferrous sulfate 325 mg (65 mg iron) Tablet 325 mg PO BID@ RF: 0 Pro-Stat AWC 17-100 gram-kcal/30 mL Liquid 1 ea PO BID@ RF: 0 lorazepam 0.5 mg Tablet 0.5 mg PO DAILY PRN (Reason: UNKNOWN) RF: 0 Enema Disposable 19-7 gram/118 mL Enema 118 ml [place] DAILY PRN (Reason: Constipation) RF: 0 insulin lispro 100 unit/mL Insulin Pen 4 unit SUBCUT TID@0630,1130,1630 RF: 0 Lantus Solostar U-100 Insulin 100 unit/mL (3 mL) Insulin Pen 12 unit SUBCUT DAILY@0800 RF: 0 Lasix 40 mg tablet 40 mg PO BID@ RF: 0 bupropion HCl [Wellbutrin SR] 150 mg Tablet Sustained-Release 12 Hr 150 mg PO Q12H RF: 0 acetaminophen 325 mg Tablet 650 mg PO Q4H PRN (Reason: Pain) Qty: 0 RF: 0 clopidogrel [Plavix] 75 mg Tablet 75 mg PO DAILY@ RF: 0 aspirin 81 mg Tablet,Delayed Release (Dr/Ec) 81 mg PO DAILY@ RF: 0 carvedilol 3.125 mg Tablet 3.125 mg PO BID@ RF: 0 tamsulosin 0.4 mg Capsule 0.4 mg PO DAILY@2099 RF: 0 bisacodyl 10 mg Suppository 10 mg WI DAILY PRN (Reason: CONSTIPATED) RF: 0 nitroglycerin 0.4 mg Tablet, Sublingual 0.4 mg SUBLINGUAL Q5M PRN (Reason: Chest Pain) RF: 0 budesonide 0.5 mg/2 mL suspension for nebulization 2 ml inhalation BID@ RF: 0 loratadine 10 mg Tablet 10 mg PO DAILY@ RF: 0 insulin lispro [Humalog KwikPen Insulin] 100 unit/mL Insulin Pen See Rx Instructions .ROUTE .COMPLEX RF: 0 rosuvastatin [Crestor] 20 mg Tablet 20 mg PO DAILY@ RF: 0 magnesium L-lactate [Magtab] 84 mg Tablet Extended Release 84 mg PO DAILY@ RF: 0 ipratropium-albuterol 0.5 mg-3 mg(2.5 mg base)/3 mL Solution For Nebulization 3 ml INHALATION BID@ PRN (Reason: Shortness Of Breath) RF: 0 TwoCal HN 0.08-2 gram-kcal/mL Liquid 1 ea PO BID@ RF: 0 Glucagon (HCl) Emergency Kit 1 mg Recon Soln 1 mg SUBCUT Q20M PRN (Reason: BLOOD SUGAR) RF: 0 Discharge Orders: Discharge ED (Routine); Ordered 11/23/20 Ordered By: Chris Ruiz Referrals: Hiram Black DO [Primary Care Provider] - 1-3 days Discharge Diet: Advance as tolerated Discharge Activity: Resume usual activity Patient Instructions: Diabetic Hypoglycemia (ED) Coding Level of Care Code ED Driving Teacher for Chg Fwd Exam Comprehensive
[2020-11-23 17:35] LABS: Glucose Point of Care 92 mg/dL (70-110)
[2020-11-23 17:41] LABS: Basophils # 0.1 10^3/uL (0.0-0.1); Basophils % 1.2 %; Eosinophils # 0.4 10^3/uL (0.0-0.8); Eosinophils % 4.9 %; Hemoglobin 10.1 g/dL (11.7-16.6); Lymphocytes # 1.4 10^3/uL (0.8-4.8); Lymphocytes % 15.6 %; Mean Corpuscular HGB Conc 30.6 g/dL (30.0-36.0); Mean Corpuscular Hemoglobin 27.4 pg (28.0-34.0); Mean Corpuscular Volume 89.7 fL (80-94); Mean Platelet Volume 10.4 fL (7.4-10.4); Monocytes # 0.9 10^3/uL (0.2-0.9); Monocytes % 9.9 %; Neutrophils % 67.9 %; Nucleated Red Blood Cells % 0 %; Platelet Count 297 10^3/cmm (130-400); Red Blood Count 3.68 10^6/uL (4.1-5.3); Red Cell Distribution Width 15.9 % (12.1-15.1); White Blood Count 8.8 10^3/uL (4.0-10.0)
[2020-11-23 18:07] LABS: ABG PCO2 48.6 mmHg (35-45); ABG PH Result 7.39 (7.35-7.45); Arterial Blood Gas Hematocrit 29.5 % (42-52); Base Excess ABG 3.8 mmol/L (-2.0-2.0); Blood Gas Allen Test Pos; Blood Gas Operator Identificat CAK; Blood Gas Sample Site Brachial, left; Blood Gas Sample Type Arterial; Carboxyhemoglobin 1.3 %THgb (0.4-20.1); HCO3 ABG 29.4 mmol/L (22-26); HGB O2 Sat 95.3 % (95-100); Oxygen Device NC; PO2 ABG 87.8 mmHg (80.0-100.0); Total Hemoglobin 9.6 g/dL (14-18)
[2020-11-23 18:09] LABS: Lactate (Lactic Acid level) 1.5 mmol/L (0.5-2.2)
[2020-11-23 18:13] LABS: Troponin(5th) Baseline 75 ng/L (0-15)
[2020-11-23] MEDS: levofloxacin-dextrose 5 % 750 MG/150 ML PREMIX 100 MG IV (18:13)
[2020-11-23 18:18] LABS: Alanine Aminotransferase 13 U/L (0-41); Albumin Level 3.5 g/dL (3.5-5.2); Alkaline Phosphatase 102 IU/L (40-130); Aspartate Amino Transferase 11 U/L (0-40); Blood Urea Nitrogen 46 mg/dL (8-23); Calcium 8.8 mg/dL (8.5-10.5); Carbon Dioxide 25 mmol/L (22-29); Chloride 104 mmol/L (98-107); Globulin 3.3 g/dL (1.3-4.6); Glomerular Filtration Rate 27.3 mL/min (90-130); Glucose 80 mg/dL (65-115); NT Pro B Type Natriuretic Pept 6387 pg/mL (0-125); Osmolality Calculated 303 mOsm/kg (285-295); Sodium 141 mmol/L (136-145); Total Bilirubin 0.2 mg/dL (0.15-1.2); Total Protein 6.8 g/dL (6.6-8.7)
[2020-11-23 18:41] LABS: Urine Appearance Hazy (CLEAR); Urine Color Yellow (Yellow); pH Urine 5 (5-7)
[2020-11-23 18:42] LABS: Add Urine Microscopic? YES; Bilirubin Urine Neg (Negative); Blood Urine Neg (Negative); Glucose Urine UA Norm (Normal); Ketones Urine Negative (Negative); Leukocyte Esterase Urine 1+ (Negative); Nitrate Urine Negative (Negative); Protein Urine Neg (Negative); Specific Gravity, Urine 1.025 (1.005-1.030); Urobilinogen Urine 4 mg/dL (Negative)
[2020-11-23 18:51] LABS: Add Urine Culture? No; Bacteria Urine 1+ /hpf; Squamous Epithelial Cell Urine 0-4 /hpf (0-5)
--- NOTE | 2020-11-23 19:18 | ECG_ITS ---
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 [id number]
[2020-11-23 19:27] VITALS: BP 100/57; PULSE 85; RESP 17; O2SAT 100
[2020-11-23 19:27] LABS: Glucose Point of Care 162 mg/dL (70-110)
--- NOTE | 2020-11-23 19:28 | PC.NURSE ---
Finger stick 162
--- NOTE | 2020-11-23 20:32 | PC.NURSE ---
[facility] called, discharge report given to nurse. [employer] called for transportation: confirmation # [id number]
[2020-11-23 21:02] VITALS: BP 98/65
[2020-11-23 21:55] VITALS: BP 128/65; PULSE 77; RESP 18; TEMP 36.4; O2SAT 100
== END 2020-11-23 21:57 | disposition home or self-care (01) ==
PROVIDERS: Family Medicine; Emergency Provider Emergency Medicine; PCP Internal Medicine
DX: E11.649 Type 2 diabetes mellitus with hypoglycemia without coma (principal); Z79.02 Long term (current) use of antithrombotics/antiplatelets; Z79.82 Long term (current) use of aspirin; Z79.4 Long term (current) use of insulin; E11.22 Type 2 diabetes mellitus with diabetic chronic kidney disease; I13.0 Hypertensive heart and chronic kidney disease with heart failure and stage 1 through stage 4 chronic kidney disease, or unspecified chronic kidney disease; N18.30 Chronic kidney disease, stage 3 unspecified; I50.22 Chronic systolic (congestive) heart failure; J44.9 Chronic obstructive pulmonary disease, unspecified; I25.10 Atherosclerotic heart disease of native coronary artery without angina pectoris; Z98.61 Coronary angioplasty status; Z89.512 Acquired absence of left leg below knee; Z89.511 Acquired absence of right leg below knee; F17.210 Nicotine dependence, cigarettes, uncomplicated
CPT/HCPCS: 36415; 36416; 36600; 70450; 71045; 80053; 81001; 82805; 82962; 83605; 83880; 84484; 85025; 93005; 96365; 99284; J1956

== ENCOUNTER 2021-01-15 17:09 | Inpatient (IN) | payer MEDICARE, MEDICAID, SELFPAY ==
[2021-01-15] VITALS (7 sets, daily range): BP systolic 103–126; BP diastolic 40–81; PULSE 83–94; RESP 20–28; TEMP 36.8–36.9; O2SAT 95–99; BMI 30.7
--- NOTE | 2021-01-15 18:11 | PC.PHAR ---
medications entered are from the pts retirement med list-kristy from [facility] what medications the pt had today
--- NOTE | 2021-01-15 18:12 | XR_ITS ---
WS: [id number] Exam: XR chest 1V portable [id number] Date/Time of Exam: 01/15/2021 6:12 PM Reason For Exam: SOB Comparison 11/23/2020. There is increasing infiltrate in the right lower lung zone since previous study. Increasing right ba darline pleural effusion noted. Mild cardiac enlargement. Increased pulmonary vascularity suggesting some degree of cardiac decompensation. Small left pleural effusion is suspected. The mediastinum and oss eous thorax are intact. XR/XR chest 1V portable [id number] IMPRESSION: 1. Infiltrates in the upper, middle and lower lobes the right lung which have i ncreased since prior study. Increasing right basal pleural effusion. Small left basal pleural effusion. 2. Mild cardiac enlargement with pulmonary vascular congestion suggesting super imposed CHF.
[2021-01-15 18:29] LABS: Basophils # 0.1 10^3/uL (0.0-0.1); Basophils % 0.8 %; Eosinophils # 0.4 10^3/uL (0.0-0.8); Eosinophils % 2.7 %; Lymphocytes # 1.2 10^3/uL (0.8-4.8); Lymphocytes % 8.6 %; Mean Corpuscular Hemoglobin 26.5 pg (28.0-34.0); Mean Corpuscular Volume 88.2 fL (80-94); Mean Platelet Volume 10.3 fL (7.4-10.4); Monocytes # 1.1 10^3/uL (0.2-0.9); Monocytes % 8.2 %; Neutrophils # 10.86 10^3/uL (1.8-7.7); Neutrophils % 79.4 %; Nucleated Red Blood Cells % 0 %; Platelet Count 309 10^3/cmm (130-400); Red Cell Distribution Width 14.6 % (12.1-15.1); White Blood Count 13.7 10^3/uL (4.0-10.0)
[2021-01-15 18:42] LABS: Lactic Sepsis W/Reflex 0.9 mmol/L (0.5-2.2)
[2021-01-15 18:43] LABS: Alanine Aminotransferase 9 U/L (0-41); Albumin Level 3.7 g/dL (3.5-5.2); Alkaline Phosphatase 85 IU/L (40-130); Anion Gap 14.4 (5-19); Aspartate Amino Transferase 10 U/L (0-40); Blood Urea Nitrogen 50 mg/dL (8-23); Calcium 8.5 mg/dL (8.5-10.5); Carbon Dioxide 30 mmol/L (22-29); Chloride 101 mmol/L (98-107); Glomerular Filtration Rate 24.9 mL/min (90-130); Glucose 71 mg/dL (65-115); Osmolality Calculated 304 mOsm/kg (285-295); Potassium 4.4 mmol/L (3.5-5.1); Sodium 141 mmol/L (136-145); Total Bilirubin 0.3 mg/dL (0.15-1.2); Total Protein 6.7 g/dL (6.6-8.7)
[2021-01-15 18:59] LABS: Influenza A by IFA Negative (Negative); Influenza B by IFA Negative (Negative)
[2021-01-15 19:00] LABS: SARS Covid-2 Antigen Negative (Negative)
--- NOTE | 2021-01-15 20:52 | CTR_ITS ---
PROCEDURE INFORMATION: Exam: CT Chest Without Contrast; Diagnostic Exam date and time: 01/15/2021 8:57 PM Age: 65 years old Clinical indication: Shortness of breath; Prior surgery; Surgery date: 6+ months; Surgery type: Stent; Patient HX: C/O SOB TECHNIQUE: Imaging protocol: Diagnostic computed tomography of the chest without contrast. Radiation optimization: All CT scans at this facility use at least one of these dose optimization techniques: automated exposure control; mA and/or kV adjustment per patient size (includes targeted exams where dose is matched to clinical indication); or iterative reconstruction. COMPARISON: CT chest con [id number] 09/07/2020 8:37 PM RADIATION DOSE METRICS: Total DLP (mGy-cm): 652.74 FINDINGS: Lungs: Patchy bilateral largely lower lobe airspace opacities likely reflecting an infectious process. Pleural spaces: Small bilateral pleural effusions. Heart: Cardiomegaly. Coronary artery atherosclerotic calcifications. Aorta: Unremarkable. No aortic aneurysm. Lymph nodes: Scattered calcified noncalcified mediastinal lymph nodes. Scattered enlarged mediastinal hilar lymph nodes measuring 2.1 cm nonspecific Spleen: Multiple calcified splenic granulomas. Bones/joints: Unremarkable. No acute fracture. Soft tissues: Unremarkable. CT/CT chest con [id number] IMPRESSION: 1. Patchy bilateral largely lower lobe airspace opacities likely reflecting an infectious process. 2. Coronary artery atherosclerotic calcifications. 3. Scattered calcified mediastinal lymph nodes. 4. Small bilateral pleural effusions. 5. Cardiomegaly. 6. Multiple calcified splenic granulomas. 7. Scattered enlarged noncalcified mediastinal hilar lymph nodes measuring 2.1 cm nonspecific Radiation Dose CTDIVOL = (mGy): DLP = 652.74 (mGy-cm)
[2021-01-15] MEDS: piperacillin-tazobactam 3.375 GM in sodium chloride 0.9% (plus) 50 ML IV (22:01)
--- NOTE | 2021-01-15 22:34 | PM.HP ---
Providers/Chief Complaint Admitting Physician: Wesley Coombs Primary Care Provider: Hiram Black DO Chief Complaint: SOB History of Present Illness Tashi Cole is a 65 year old male, prison resident, with past medical history of oxygen dependent COPD, 3 L, diabetes, hypertension, GERD, chronic kidney disease stage III-IV, systolic CHF with EF of 25 to 30%, BPH who is presenting with shortness of breath and cough. The patient was found to be hypoxic by EMS. Respiratory treatment was given in the route. Currently his oxygenation has improved and he is back on 3 L. He reports that his shortness of breath started earlier today. Reports associated dry cough. Denies fevers or chills. No chest pain or palpitations. No nausea or vomiting. No diarrhea. No wheezes. CT showed bilateral airspace disease. Radiologist is concerned about possible bilateral pneumonia. The patient does have previous history of pneumonia. Review of Systems General: Reports: 10 or more systems reviewed and unremarkable except in HPI and below Medications/Allergies Home Medications Medication Instructions Recorded Confirmed Last Taken Type aspirin 81 mg PO DAILY@10/19/19 01/15/21 01/15/21 09:00 History bupropion HCl [Wellbutrin SR] 150 mg PO Q12H 10/19/19 01/15/21 01/15/21 09:30 History carvedilol 3.125 mg PO BID@10/19/19 01/15/21 01/15/21 09:30 History clopidogrel [Plavix] 75 mg PO DAILY@10/19/19 01/15/21 01/15/21 History loratadine 10 mg PO DAILY@10/19/19 01/15/21 01/15/21 History magnesium L-lactate [Magtab] 84 mg PO DAILY@10/19/19 01/15/21 01/15/21 History rosuvastatin [Crestor] 20 mg PO DAILY@10/19/19 01/15/21 01/14/21 History tamsulosin 0.4 mg PO DAILY@209910/19/19 01/15/21 01/14/21 History Hair,Skin and Nails 1 tab PO DAILY@12/15/19 01/15/21 01/15/21 History Mucinex DM 1 tab PO BID@12/15/19 01/15/2125/21 09:30 History citalopram 10 mg PO DAILY@07/26/20 01/15/21 01/15/21 09:30 History polyethylene glycol 3350 [Miralax] 17 g PO DAILY@07/26/20 01/15/21 01/15/21 History TwoCal HN 1 ea PO BID@,09/07/20 01/15/21 01/15/21 History Pro-Stat AWC 1 ea PO BID@,10/28/20 01/15/21 01/15/21 09:30 History ferrous sulfate 325 mg PO BID@07,17 10/28/20 01/15/21 01/15/21 16:30 History sucralfate 1 g PO BID@07,17 10/28/20 01/15/21 01/15/21 16:30 History furosemide [Lasix] 40 mg PO BID@07,14 11/23/20 01/15/21 01/15/21 14:00 History insulin glargine [Lantus Solostar 15 unit SUBCUT DAILY@0800 11/23/20 01/15/21 01/15/21 07:06 History U-100 Insulin] insulin lispro [Humalog KwikPen See Rx Instructions .ROUTE .COMPLEX 11/23/20 01/15/21 01/15/21 11:37 History Insulin] 6 units lorazepam 0.5 mg PO TID PRN 11/23/20 01/15/21 01/11/21 History budesonide 0.5 mg/2 mL suspension 0.5 mg INHALATION BID@ #120 ml 12/29/20 01/15/21 01/15/21 09:30 Rx for nebulization ipratropium 0.5 mg-albuterol 3 mg 3 ml INHALATION QID #360 ml 12/29/20 01/15/21 01/15/21 Rx (2.5 mg base)/3 mL nebulization soln pantoprazole 40 mg PO BID@,18 01/15/21 01/15/21 01/15/21 06:00 History silver sulfadiazine [Silvadene] 1 applic TOPICAL BID 01/15/21 01/15/21 01/15/21 13:50 History Allergies Allergy/AdvReac Type Severity Reaction Status Date / Time tramadol Allergy ADR-Vomitin Verified 12/29/20 09:55 g PFSH Acute PFSH: Medical History Abnormal cystoscopy Acute encephalopathy Anxiety BPH (benign prostatic hyperplasia) Chronic systolic CHF (congestive heart failure) CKD stage 3 secondary to diabetes COPD (chronic obstructive pulmonary disease) Coronary artery disease COVID-19 Depression Dysphagia History of urinary retention Hypertension Peripheral vascular disease Type 2 diabetes mellitus Urgency incontinence Surgical History Coronary angioplasty status History of carpal tunnel surgery History of hip surgery S/P bilateral BKA (below knee amputation) S/P right coronary artery (RCA) stent placement Family History Other CAD (coronary artery disease) Diabetes Social History Smoking and tobacco status: current every day smoker cigarettes Years cigarettes smoked: 59 [ Other cigarette details: Hx of 1 PPD x 59 Years ] Second hand smoke exposure: Yes Smoking risk assessment/counseling performed?: No Alcohol intake: never Counseling given: No Counseling given: No Lives independently: No 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 Marital status: Current occupational status: retired and disabled History of recent travel: No Current gender identity: Male Vitals/I&O/Wt Last Vital Signs Temp 98.3 F 01/15/21 17:13 Pulse 85 01/15/21 22:00 Resp 21 H 01/15/21 22:00 BP 103/55 01/15/21 22:00 Pulse Ox 95 01/15/21 22:00 Weight last 48 hrs Weight 62.142 kg Physical Exam Narrative: EXAM NARRATIVE: Awake alert oriented. No acute distress. Mood and affect are appropriate. Responses are adequate. Skin is warm and dry. Moist mucous nares Neck supple. No JVD Lungs bilateral basilar crackles. No diffuse wheezes. No respiratory distress Heart S1, S2, regular Abdomen soft, obese, nontender, bowel sounds are present Extremities bilateral BKA. No peripheral cyanosis. No focal weakness. Normal speech. Cranial nerves II through XII are grossly intact. Extraocular muscles are intact. Data : 01/15/21 17:25 01/15/21 17:25 Other Labs: Laboratory Results WBC 13.7 10^3/uL (4.0-10.0) H 01/15/21 17:25 RBC 3.40 10^6/uL (4.1-5.3) L 01/15/21 17:25 Hgb 9.0 g/dL (11.7-16.6) L 01/15/21 17:25 Hct 30.0 % (42.0-52.0) L 01/15/21 17:25 MCV 88.2 fL (80-94) 01/15/21 17:25 MCH 26.5 pg (28.0-34.0) L 01/15/21 17: MCHC 30.0 g/dL (30.0-36.0) 01/15/21 17:25 RDW 14.6 % (12.1-15.1) 01/15/21 17: Plt Count 309 10^3/cmm (130-400) 01/15/21 17: MPV 10.3 fL (7.4-10.4) 01/15/21 17:25 Neut % (Auto) 79.4 % 01/15/21 17:25 Lymph % (Auto) 8.6 % 01/15/21 17:25 [place] % (Auto) 8.2 % 01/15/21 17:25 Eos % (Auto) 2.7 % 01/15/21 17:25 Baso % (Auto) 0.8 % 01/15/21 17: Neut # (Auto) 10.86 10^3/uL (1.8-7.7) H 01/15/21 17:25 Lymph # (Auto) 1.2 10^3/uL (0.8-4.8) 01/15/21 17:25 [place]ah # (Auto) 1.1 10^3/uL (0.2-0.9) H 01/15/21 17:25 Eos # (Auto) 0.4 10^3/uL (0.0-0.8) 01/15/21 17:25 Baso # (Auto) 0.1 10^3/uL (0.0-0.1) 01/15/21 17: Nucleated RBC % (auto) 0 % 01/15/21 17: Nucleated RBCs # 0.0 /100WBC 01/15/21 17:25 Sodium 141 mmol/L (136-145) 01/15/21 17:25 Potassium 4.4 mmol/L (3.5-5.1) 01/15/21 17:25 Chloride 101 mmol/L (98-107) 01/15/21 17:25 Carbon Dioxide 30 mmol/L (22-29) H 01/15/21 17:25 Anion Gap 14.4 (5-19) 01/15/21 17:25 BUN 50 mg/dL (8-23) H 01/15/21 17:25 Creatinine 2.6 mg/dL (0.7-1.2) H 01/15/21 17:25 GFR Calculation 24.9 mL/min (90-130) L 01/15/21 17:25 Glucose 71 mg/dL (65-115) 01/15/21 17:25 Calculated Osmolality 304 mOsm/kg (285-295) H 01/15/21 17:25 Lactic Acid 0.9 mmol/L (0.5-2.2) 01/15/21 17:25 Calcium 8.5 mg/dL (8.5-10.5) 01/15/21 17:25 Total Bilirubin 0.3 mg/dL (0.15-1.2) 01/15/21 17:25 AST 10 U/L (0-40) 01/15/21 17:25 ALT 9 U/L (0-41) 01/15/21 17:25 Alkaline Phosphatase 85 IU/L (40-130) 01/15/21 17:25 Total Protein 6.7 g/dL (6.6-8.7) 01/15/21 17:25 Albumin 3.7 g/dL (3.5-5.2) 01/15/21 17:25 Globulin 3.0 g/dL (1.3-4.6) 01/15/21 17:25 Influenza Type A Ag Negative (Negative) 01/15/21 18:20 Influenza Type B Ag Negative (Negative) 01/15/21 18:20 SARS-CoV-2 Ag (Rapid) Negative (Negative) 01/15/21 18:[address] 01/15/21 20:52 IMPRESSION: 1. Patchy bilateral largely lower lobe airspace opacities likely reflecting an infectious process. 2. Coronary artery atherosclerotic calcifications. 3. Scattered calcified mediastinal lymph nodes. 4. Small bilateral pleural effusions. 5. Cardiomegaly. 6. Multiple calcified splenic granulomas. 7. Scattered enlarged noncalcified mediastinal hilar lymph nodes measuring 2.1 cm nonspecific Radiation Dose CTDIVOL = (mGy): DLP = 652.74 (mGy-cm) Micro: Microbiology 01/15/21 19:49 Blood Culture - Preliminary Blood SPECIMEN COLLECTED 01/15/21 17:25 Blood Culture - Preliminary Blood SPECIMEN COLLECTED A&P Additional A&P Information 65-year-old male, prison resident with past medical history of COPD, CHF, chronic kidney disease stage III-IV, hypertension, diabetes, peripheral vascular disease who is presenting with shortness of breath and hypoxia. CT reveals bilateral airspace disease concerning for possible pneumonia. Acute hypoxic respiratory failure. Mild. Improved with supplemental oxygen and respiratory treatments. Pneumonia. I am not 100% convinced that it is pneumonia. A febrile. Leukocytosis could be explained by possibly receiving steroids. For now we will continue antibiotics: Zosyn and doxycycline. I will check procalcitonin level. Depending on the progress and results of lab tests we will adjust antibiotics. Anemia. Stable. Monitor. CHF. Currently stable. However bibasilar airspace disease could be related to edema. We will check his BNP. We will continue his cardiac medications including furosemide. We will try to avoid fluid overload. Hypertension. Currently well controlled. Continue home medications. Diabetes. Continue home medications and insulin sliding scale. DVT prophylaxis. He is already on dual antiplatelet therapy. Will use BRE hoses. Will consider heparin if he requires prolonged hospitalization. CODE STATUS. Limited code. He does not want cardiac resuscitation. However he is okay with intubation and mechanical ventilation. The plan of care was discussed with the patient. He verbalized understanding and agreement. Attestations Medical Necessity Statement*: Based on patient's current condition and findings I expect that the patient will spend more than 2 midnights in the hospital. Coding Level of Care Code Acute Rework Machine Operator for Pepe Mcfarland
[2021-01-15 22:59] LABS: Glucose Point of Care 114 mg/dL (70-110)
--- NOTE | 2021-01-15 23:09 | ED_ITS ---
HPI - SOB/Dyspnea General: Chief Complaint: Shortness of Breath/Dyspnea Stated Complaint: SOB Time Seen by Provider: 01/15/21 17:22 Source: patient Mode of arrival: ambulatory Limitations: no limitations History of Present Illness: HPI Narrative: Patient is a 65-year-old male who is a long-term resident and has a history of diabetes mellitus status post bilateral amputations, COPD on 3 L of oxygen chronically, congestive heart failure, presents to the emergency department with complaints of shortness of breath. Patient states that he has been feeling short of breath for about 2 days but got worse today. Per long-term staff he was hypoxic on his 3 L of oxygen with a saturation in the 80s. They therefore called for an ambulance. When EMS arrived they gave him a beta agonist breathing treatment after which his saturations increased into the low 90s. Patient denies any fever, exposure to anyone with COVID-19. MD elicited complaint: shortness of breath Pertinent past history: COPD and congestive heart failure Onset (ago): day(s) (2) Timing: constant Severity: moderate Exacerbating factors: nothing Relieving factors: nothing Associated symptoms: Reports abdominal pain; Deny chest congestion, chest pain, cough, diaphoresis, dizziness, extremity pain, fever(s), hemoptysis, lightheadedness, myalgias, nausea, orthopnea, palpitations, paresthesias, polydipsia, polyuria, rash, sense of impending doom, syncope or vomiting Treatment prior to arrival: oxygen and bronchodilator Review of Systems General: Reports: 10 or more systems reviewed and unremarkable except in HPI and below Const: Denies: fever(s) or diaphoresis Card: Denies: chest pain, palpitations, lightheadedness, syncope or orthopnea Resp: Denies: hemoptysis or chest congestion GI: Reports: abdominal pain; Denies: nausea or vomiting Musc: Denies: extremity pain Neuro: Denies: dizziness Endo: Denies: polyuria or polydipsia PFSH ED PFSH: Medical History Abnormal cystoscopy Acute encephalopathy Anxiety BPH (benign prostatic hyperplasia) Chronic systolic CHF (congestive heart failure) CKD stage 3 secondary to diabetes COPD (chronic obstructive pulmonary disease) Coronary artery disease COVID-19 Depression Dysphagia History of urinary retention Hypertension Peripheral vascular disease Type 2 diabetes mellitus Urgency incontinence Surgical History Coronary angioplasty status History of carpal tunnel surgery History of hip surgery S/P bilateral BKA (below knee amputation) S/P right coronary artery (RCA) stent placement Family History Other CAD (coronary artery disease) Diabetes Social History Smoking and tobacco status: current every day smoker cigarettes Years cigarettes smoked: 59 [ Other cigarette details: Hx of 1 PPD x 59 Years ] Second hand smoke exposure: Yes Smoking risk assessment/counseling performed?: No Alcohol intake: never Counseling given: No Counseling given: No Lives independently: No Housing: [facility] Marital status: Current occupational status: retired and disabled History of recent travel: No Current gender identity: Male Physical Exam Const: COMMON NORMALS: no acute distress, average body habitus, patient oriented x3, no limitations, healthy appearing, alert and well nourished HENMT: COMMON NORMALS: normocephalic, atraumatic and moist oral mucous membranes HEAD & SCALP: normocephalic and atraumatic Neck/C-Spine: COMMON NORMALS: no meningeal signs and no JVD Resp: COMMON NORMALS: normal respiratory effort, No retractions, No use of accessory muscles and percussion normal EFFORT & INSPECTION: Yes tachypneic AUSCULTATION: rales bilateral and diffuse PERCUSSION: percussion normal Cardio: COMMON NORMALS: no JVD, regular rate, regular rhythm, S1 normal heart sound present, S2 normal heart sound present, No gallops present (Cardio), No clicks present (Cardio), No murmurs present (Cardio), No rub (Cardio) and Peripheral pulses 2+ throughout RATE: regular rate RHYTHM: regular rhythm HEART SOUNDS: S1 normal heart sound present and S2 normal heart sound present PERIPHERAL PULSES: Peripheral pulses 2+ throughout GI: COMMON NORMALS: Normal to inspection, nondistended, normoactive bowel sounds present, Soft to palpation, non-tender, No hepatosplenomegaly present, no masses and no bruits PALPATION: Yes Soft to palpation and Yes No hepatosplenomegaly present Neuro: COMMON NORMALS: patient oriented x3 SENSORIUM/ORIENTATION: Yes alert MENINGEAL SIGNS: Yes no meningeal signs Course Reevaluation(s): Reevaluation #1: Discussed his lab and imaging findings with him. Explained that he has bilateral pneumonia and because of his hypoxia I advised that he be admitted to the hospital. He voiced understanding and is in agreement with the plan. Time: 21:50 Consultations: Consultation #1: Discussed the patient with Dr. Coombs, hospitalist and he kindly accepted the patient to his service. Time: 21:45 Vital Signs: Vital signs: Vital Signs Temperature 98.5 F 01/15/21 22:07 Pulse Rate 85 01/15/21 22:58 Respiratory Rate 20 H 01/15/21 22:58 Blood Pressure 120/58 01/15/21 22:58 Pulse Oximetry 97 01/15/21 22:58 MDM - SOB/Dyspnea MDM Narrative: Medical decision making narrative: 65-year-old male with a history of COPD and other multiple comorbidities who presented to the emergency department with hypoxia and difficulty breathing. Evaluation in the emergency department is consistent with healthcare associated pneumonia and has bilateral pneumonia on imaging. He has mild leukocytosis, was tachypneic, but not septic. Curb 65 score is 2 it makes him a moderate risk of a poor outcome. He is admitted to the hospital for further evaluation and management. Medical Records: Attestation: I reviewed the patient's medical records. Lab Data: Attestation: I reviewed the patient's lab results. Labs: Lab Results 01/15/21 01/15/21 01/15/21 Range/Units 17:25 17:25 17:25 WBC 13.7 H (4.0-10.0) 10^3/ uL RBC 3.40 L (4.1-5.3) 10^6/u L Hgb 9.0 L (11.7-16.6) g/dL Hct 30.0 L (42.0-52.0) % MCV 88.2 (80-94) fL MCH 26.5 L (28.0-34.0) pg MCHC 30.0 (30.0-36.0) g/dL RDW 14.6 (12.1-15.1) % Plt Count 309 (130-400) 10^3/c mm MPV 10.3 (7.4-10.4) fL Neut % (Auto) 79.4 % Lymph % (Auto) 8.6 % [place] % (Auto) 8.2 % Eos % (Auto) 2.7 % Baso % (Auto) 0.8 % Neut # (Auto) 10.86 H (1.8-7.7) 10^3/u L Lymph # (Auto) 1.2 (0.8-4.8) 10^3/u L [place] # (Auto) 1.1 H (0.2-0.9) 10^3/u L Eos # (Auto) 0.4 (0.0-0.8) 10^3/u L Baso # (Auto) 0.1 (0.0-0.1) 10^3/u L Nucleated RBC % (a uto) 0 % Nucleated RBCs # 0.0 /100WBC Sodium 141 (136-145) mmol/L Potassium 4.4 (3.5-5.1) mmol/L Chloride 101 (98-107) mmol/L Carbon Dioxide 30 H (22-29) mmol/L Anion Gap 14.4 (5-19) BUN 50 H (8-23) mg/dL Creatinine 2.6 H (0.7-1.2) mg/dL GFR Calculation 24.9 L (90-130) mL/min Glucose 71 (65-115) mg/dL Calculated Osmolal ity 304 H (285-295) mOsm/k g Lactic Acid 0.9 (0.5-2.2) mmol/L Calcium 8.5 (8.5-10.5) mg/dL Total Bilirubin 0.3 (0.15-1.2) mg/dL AST 10 (0-40) U/L ALT 9 (0-41) U/L Alkaline Phosphata se 85 (40-130) IU/L Total Protein 6.7 (6.6-8.7) g/dL Albumin 3.7 (3.5-5.2) g/dL Globulin 3.0 (1.3-4.6) g/dL Influenza Type A A g (Negative) Influenza Type B A g (Negative) SARS-CoV-2 Ag (Rap id) (Negative) 01/15/21 01/15/21 Range/Units 18:20 18:20 WBC (4.0-10.0) 10^3/ uL RBC (4.1-5.3) 10^6/u L Hgb (11.7-16.6) g/dL Hct (42.0-52.0) % MCV (80-94) fL MCH (28.0-34.0) pg MCHC (30.0-36.0) g/dL RDW (12.1-15.1) % Plt Count (130-400) 10^3/c mm MPV (7.4-10.4) fL Neut % (Auto) % Lymph % (Auto) % [place] % (Auto) % Eos % (Auto) % Baso % (Auto) % Neut # (Auto) (1.8-7.7) 10^3/u L Lymph # (Auto) (0.8-4.8) 10^3/u L [place] # (Auto) (0.2-0.9) 10^3/u L Eos # (Auto) (0.0-0.8) 10^3/u L Baso # (Auto) (0.0-0.1) 10^3/u L Nucleated RBC % (a uto) % Nucleated RBCs # /100WBC Sodium (136-145) mmol/L Potassium (3.5-5.1) mmol/L Chloride (98-107) mmol/L Carbon Dioxide (22-29) mmol/L Anion Gap (5-19) BUN (8-23) mg/dL Creatinine (0.7-1.2) mg/dL GFR Calculation (90-130) mL/min Glucose (65-115) mg/dL Calculated Osmolal ity (285-295) mOsm/k g Lactic Acid (0.5-2.2) mmol/L Calcium (8.5-10.5) mg/dL Total Bilirubin (0.15-1.2) mg/dL AST (0-40) U/L ALT (0-41) U/L Alkaline Phosphata se (40-130) IU/L Total Protein (6.6-8.7) g/dL Albumin (3.5-5.2) g/dL Globulin (1.3-4.6) g/dL Influenza Type A A g Negative (Negative) Influenza Type B A g Negative (Negative) SARS-CoV-2 Ag (Rap id) Negative (Negative) Imaging Data^: CT Chest: Attestation: I personally reviewed and interpreted this imaging study as follows: Radiologist's impression: [facility] [address] [address] Scan Report Signed Patient: Tashi Cole #: [id number] : 6Acc#:[id number] Age/Sex: 65 / MADM Date: 01/15/21 Loc: ERRoom/Bed: Attending Dr: Ordering Provider/Ordering MD: Bulmaro Zelaya MD, [facility] [place] Date of Service: 01/15/21 Procedure(s): CT chest wo con [id number] Accession Number(s): [id number] Report Number: [id number] PROCEDURE INFORMATION: Exam: CT Chest Without Contrast; Diagnostic Exam date and time: 01/15/2021 8:57 PM Age: 65 years old Clinical indication: Shortness of breath; Prior surgery; Surgery date: 6+ months; Surgery type: Stent; Patient HX: C/O SOB TECHNIQUE: Imaging protocol: Diagnostic computed tomography of the chest without contrast. Radiation optimization: All CT scans at this facility use at least one of these dose optimization techniques: automated exposure control; mA and/or kV adjustment per patient size (includes targeted exams where dose is matched to clinical indication); or iterative reconstruction. COMPARISON: CT chest wo con [id number] 09/07/2020 8:37 PM RADIATION DOSE METRICS: Total DLP (mGy-cm): 652.74 FINDINGS: Lungs: Patchy bilateral largely lower lobe airspace opacities likely reflecting an infectious process. Pleural spaces: Small bilateral pleural effusions. Heart: Cardiomegaly. Coronary artery atherosclerotic calcifications. Aorta: Unremarkable. No aortic aneurysm. Lymph nodes: Scattered calcified noncalcified mediastinal lymph nodes. Scattered enlarged mediastinal hilar lymph nodes measuring 2.1 cm nonspecific Spleen: Multiple calcified splenic granulomas. Bones/joints: Unremarkable. No acute fracture. Soft tissues: Unremarkable. CT/CT chest wo con [id number] IMPRESSION: 1. Patchy bilateral largely lower lobe airspace opacities likely reflecting an infectious process. 2. Coronary artery atherosclerotic calcifications. 3. Scattered calcified mediastinal lymph nodes. 4. Small bilateral pleural effusions. 5. Cardiomegaly. 6. Multiple calcified splenic granulomas. 7. Scattered enlarged noncalcified mediastinal hilar lymph nodes measuring 2.1 cm nonspecific Radiation Dose CTDIVOL = (mGy): DLP = 652.74 (mGy-cm) Dictated By:Micah Cunha MD Signed By:Micah Cunha MDSigned Date/Time:01/15/212133 DD/ 32 EKG Data^: EKG 1: Attestation: I personally reviewed and interpreted this EKG as follows: EKG Interpretation Date: 01/15/21 EKG interpretation time: 17:22 Prior EKG tracings: not available for review Interpretation: Sinus rhythm. Heart rate 93 bpm. Intraventricular conduction delay. Q waves noted in leads II, 3, aVF. Discharge Plan Discharge Patient Disposition: Admitted As Inpatient Admit Provider: Wesley Coombs Clinical Impression: HCAP (healthcare-associated pneumonia), Hypoxia Condition: Stable Coding Level of Care Code ED Surgical Attendant for [facility]
[2021-01-15 23:14] LABS: NT Pro B Type Natriuretic Pept 7796 pg/mL (0-125); Procalcitonin 0.09 ng/mL (0-0.5)
--- NOTE | 2021-01-15 23:14 | ECG_ITS ---
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: : 1955 Requested By: Wesley Hayden Order Number: [id number] Reading MD: MARGARITA FISHER Measurements Intervals [place] Rate: 93 P: 59 HI: 166 QRS: 3 QRSD: 138 T: 121 QT: 377 QTc: 471 Interpretive Statements SINUS RHYTHM INTRAVENTRICULAR CONDUCTION DELAY [130+ ms QRS DURATION] POSSIBLE ANTERIOR MYOCARDIAL INFARCTION , OF INDETERMINATE AGE [30 ms Q WAVE IN V3/V4, OR R < 0.2 mV IN V4] INFERIOR MYOCARDIAL INFARCTION , OF INDETERMINATE AGE [40+ ms Q WAVE AND/OR ST/T ABNORMALITY IN II/aVF] Compared to ECG 11/23/2020 17:41:08 Myocardial infarct finding now present T-wave abnormality no longer present Electronically Signed On 01-16-2021 21:30:29 CDT by MARGARITA FISHER [email or web address]
[2021-01-15] MEDS: buPROPion SR (12 HR) 150 mg Tablet PO (23:26)
[2021-01-15] MEDS: doxycycline 100 mg Tablet PO (23:26)
[2021-01-16] VITALS (17 sets, daily range): BP systolic 96–119; BP diastolic 50–66; PULSE 73–90; RESP 17–22; TEMP 36.9–37.4; O2SAT 92–100
[2021-01-16 05:27] LABS: Basophils # 0.1 10^3/uL (0.0-0.1); Basophils % 0.9 %; Eosinophils # 0.3 10^3/uL (0.0-0.8); Eosinophils % 2.9 %; Hemoglobin 8.4 g/dL (11.7-16.6); Lymphocytes # 1.5 10^3/uL (0.8-4.8); Lymphocytes % 14.3 %; Mean Platelet Volume 10.1 fL (7.4-10.4); Monocytes # 0.9 10^3/uL (0.2-0.9); Neutrophils # 7.38 10^3/uL (1.8-7.7); Neutrophils % 72.5 %; Nucleated Red Blood Cells % 0 %; Platelet Count 301 10^3/cmm (130-400); Red Blood Count 3.11 10^6/uL (4.1-5.3); Red Cell Distribution Width 14.6 % (12.1-15.1); White Blood Count 10.2 10^3/uL (4.0-10.0)
[2021-01-16 05:42] LABS: Anion Gap 14.3 (5-19); Blood Urea Nitrogen 48 mg/dL (8-23); Calcium 8.4 mg/dL (8.5-10.5); Carbon Dioxide 30 mmol/L (22-29); Chloride 101 mmol/L (98-107); Glucose 73 mg/dL (65-115); Magnesium 2.2 mg/dL (1.7-2.3); NT Pro B Type Natriuretic Pept 7810 pg/mL (0-125); Osmolality Calculated 303 mOsm/kg (285-295); Potassium 4.3 mmol/L (3.5-5.1); Sodium 141 mmol/L (136-145)
[2021-01-16] MEDS: pantoprazole DR 40 mg Tablet PO ×2 (06:12→18:05)
[2021-01-16] MEDS: sucralfate 1 gm Tablet PO ×2 (06:13→18:05)
[2021-01-16] MEDS: FUROsemide 40 mg Tablet PO ×2 (06:13→15:06)
[2021-01-16 06:19] LABS: Glucose Point of Care 80 mg/dL (70-110)
[2021-01-16] MEDS: ipratropium-albuterol 3 mL Neb INHALATION ×4 (07:26→20:39)
[2021-01-16] MEDS: budesonide 0.5 mg/2 mL Neb INHALATION ×2 (07:26→20:39)
[2021-01-16] MEDS: carvedilol 3.125 mg Tablet PO ×2 (07:52→21:41)
[2021-01-16] MEDS: insulin glargine 100 units/1 mL 15 UNIT SUBCUT (07:52)
[2021-01-16] MEDS: loratadine 10 mg Tablet PO (07:52)
[2021-01-16] MEDS: aspirin 81 mg EC Tablet PO (07:52)
[2021-01-16] MEDS: citalopram 20 mg Tablet 10 MG PO (07:53)
[2021-01-16] MEDS: clopidogrel 75 mg Tablet PO (07:53)
[2021-01-16] MEDS: piperacillin-tazobactam 3.375 GM in sodium chloride 0.9% (plus) 50 ML IV ×2 (09:15→22:34)
[2021-01-16 10:44] LABS: Glucose Point of Care 243 mg/dL (70-110)
[2021-01-16] MEDS: buPROPion SR (12 HR) 150 mg Tablet PO ×2 (11:13→22:34)
--- NOTE | 2021-01-16 11:26 | PC.CHAP ---
Pastoral Care Encounter/Spiritual Assessment Type of Contact [x] Declined beck tender visit [] Patient/Family/Request visit [] Outpatient visit [] Follow-up visit [] Physician referral [] Code/Alert [] Routine visit [] Staff referral [] Actively dying [] Patient sleeping [] Family support [] [] Out of room [] Palliative care [] [] Receiving care in room [] Pre-surgical visit [] Trauma [] Long length of stay [] ICU visit [] Other: Relational/Emotional Strength [] Patient feels connected with others/family/visitors/staff [] Distress [] Loneliness/isolation [] Abandonment Spirituality of Patient [] Person of J[place] [] Attends Buddhist of their [place] [] Believes in Prayer [] Reads Bible or Hinduism materials [] There are Spiritual issues to be addressed Enterprise Analyst Interventions [] Prayer [] Active listening [] Non-anxious presence [] Spiritual/emotional support [] Crisis/trauma care [] Spiritual counseling [] Bereavement support [] Provided bereavement packet [] Provided Bible/devotional materials [] Provided toy/stuffed animal, coloring book to patient or family member [] Provided Communion [] Anointing/[place] [] Salvation [] Completed spiritual assessment [] Other: Impact on Illness or Injury [] Angry [] Fearful [] Anxious [] Often cries [] Exhaustion [] Unable to work [] Unable to attend buddhist [] Unable to walk/stand [] Unable to read [] Unable to drive [] Unable to eat/drink [] Unable to sleep [] Unable to be with family [] Patient intubated [] Other: Summary Time spent with patient
--- NOTE | 2021-01-16 12:07 | P.PN_ITS ---
Vitals/I&O/Wt Last Vital Signs Temp 98.9 F 01/16/21 07:47 Pulse 82 01/16/21 11:49 Resp 20 H 01/16/21 11:43 BP 112/60 01/16/21 07:47 Pulse Ox 92 01/16/21 11:43 01/15/21 01/16/21 01/16/21 22:59 06:59 14:59 Intake Total 50 / 50 120 / 120 Output Total 325 / 325 Balance -275 / -275 120 / 120 Weight last 48 hrs Weight 62.142 kg Physical Exam Const: COMMON NORMALS: patient oriented x3 HENMT: COMMON NORMALS: normocephalic and atraumatic HEAD & SCALP: normocephalic and atraumatic Resp: COMMON NORMALS: clear to auscultation bilaterally AUSCULTATION: clear to auscultation bilaterally Cardio: COMMON NORMALS: regular rate, regular rhythm, S1 normal heart sound present, S2 normal heart sound present, No gallops present (Cardio), No murmurs present (Cardio), No rub (Cardio) and Peripheral pulses 2+ throughout RATE: regular rate RHYTHM: regular rhythm HEART SOUNDS: S1 normal heart sound present and S2 normal heart sound present PERIPHERAL PULSES: Peripheral pulses 2+ throughout GI: COMMON NORMALS: Normal to inspection, nondistended, normoactive bowel sounds present, Soft to palpation, non-tender, No hepatosplenomegaly present and no masses AUSCULTATION: Yes normoactive bowel sounds PALPATION: Yes Soft to palpation and Yes No hepatosplenomegaly present RECTAL EXAM: Yes deferred Extremity: COMMON NORMALS: no clubbing, cyanosis or edema and no pedal edema Neuro: COMMON NORMALS: patient oriented x3 Data : 01/16/21 04:37 01/16/21 04:37 Micro: Microbiology 01/15/21 19:49 Blood Culture - Preliminary Blood SPECIMEN COLLECTED 01/15/21 17:25 Blood Culture - Preliminary Blood SPECIMEN COLLECTED A&P Assessment and plan (1) Pneumonia: Status: Acute (2) Heart failure with reduced ejection fraction: Status: Acute (3) COPD (chronic obstructive pulmonary disease): Status: Acute (4) Type 2 diabetes mellitus: Status: Chronic (5) Hypertension: Status: Chronic (6) Coronary artery disease: Status: Chronic Qualifiers: Associated angina: without angina Coronary Disease-Associated Artery/Lesion type: [place] artery [place] vs. transplanted heart: [place] heart Qualified Code(s): I25.10 - Atherosclerotic heart disease of [place] coronary artery without angina pectoris Additional A&P Information 65-year-old male, [facility] resident with past medical history of COPD, CHF, chronic kidney disease stage III-IV, hypertension, diabetes, peripheral vascular disease who is presenting with shortness of breath and hypoxia. CT reveals bilateral airspace disease concerning for possible pneumonia. Acute hypoxic respiratory failure. Mild. Improved with supplemental oxygen and respiratory treatments. Pneumonia. I am not 100% convinced that it is pneumonia. A febrile. Leukocytosis could be explained by possibly receiving steroids. For now we will continue antibiotics: Zosyn and doxycycline. procalcitonin level. Normal Blood cultures: 09/26 GPC Follow repeat blood culture: Anemia. Stable. Monitor. CHF. Currently stable. However bibasilar airspace disease could be related to edema. We will check his BNP. We will continue his cardiac medications including furosemide. We will try to avoid fluid overload. Hypertension. Currently well controlled. Continue home medications. Diabetes. Continue home medications and insulin sliding scale. DVT prophylaxis. He is already on dual antiplatelet therapy. Will use BRE hoses. Will consider heparin if he requires prolonged hospitalization. CODE STATUS. Limited code. He does not want cardiac resuscitation. However he is okay with intubation and mechanical ventilation. The plan of care was discussed with the patient. He verbalized understanding and agreement. Attestations Medical Necessity Statement*: Patient needs to be in hospital for management of pneumonia Coding Level of Care Code Acute Fertilizer Supervisor for [facility] Diagnoses Pneumonia J18.9 Heart failure with reduced ejection fraction I50.20 COPD (chronic obstructive pulmonary disease) J44.9 Type 2 diabetes mellitus E11.9 Hypertension I10 Coronary artery disease I25.10 Associated angina: without angina Coronary Disease-Associated Artery/Lesion type: [place] artery [place] vs. transplanted heart: [place] heart
--- NOTE | 2021-01-16 16:40 | PC.RESP ---
Smoking Cessation and Pulmonary Rehab information sent to patient.
[2021-01-16 16:55] LABS: Glucose Point of Care 242 mg/dL (70-110)
[2021-01-16 20:46] LABS: Glucose Point of Care 126 mg/dL (70-110)
[2021-01-16] MEDS: atorvastatin 40 mg Tablet 80 MG PO (21:41)
[2021-01-16] MEDS: tamsulosin 0.4 mg Capsule PO (21:41)
[2021-01-17] VITALS (19 sets, daily range): BP systolic 105–127; BP diastolic 43–78; PULSE 76–97; RESP 16–20; TEMP 36.7–37.2; O2SAT 92–100
[2021-01-17 01:24] LABS: Glucose Point of Care 85 mg/dL (70-110)
[2021-01-17] MEDS: ipratropium-albuterol 3 mL Neb INHALATION ×5 (02:35→20:06)
[2021-01-17] MEDS: FUROsemide 40 mg Tablet PO ×2 (06:21→13:44)
[2021-01-17] MEDS: sucralfate 1 gm Tablet PO ×2 (06:21→17:08)
[2021-01-17] MEDS: pantoprazole DR 40 mg Tablet PO ×2 (06:21→17:08)
[2021-01-17 06:35] LABS: Glucose Point of Care 132 mg/dL (70-110)
[2021-01-17] MEDS: budesonide 0.5 mg/2 mL Neb INHALATION ×2 (08:00→20:06)
[2021-01-17] MEDS: polyethylene glycol 3350 Pkt 17 gm PO (08:44)
[2021-01-17] MEDS: aspirin 81 mg EC Tablet PO (08:44)
[2021-01-17] MEDS: citalopram 20 mg Tablet 10 MG PO (08:45)
[2021-01-17] MEDS: loratadine 10 mg Tablet PO (08:45)
[2021-01-17] MEDS: clopidogrel 75 mg Tablet PO (08:45)
[2021-01-17] MEDS: insulin glargine 100 units/1 mL 15 UNIT SUBCUT (08:46)
[2021-01-17] MEDS: carvedilol 3.125 mg Tablet PO ×2 (08:54→21:52)
[2021-01-17 09:54] LABS: Basophils # 0.1 10^3/uL (0.0-0.1); Basophils % 0.9 %; Eosinophils # 0.5 10^3/uL (0.0-0.8); Eosinophils % 5.2 %; Hematocrit 29.6 % (42.0-52.0); Hemoglobin 8.8 g/dL (11.7-16.6); Lymphocytes # 1.7 10^3/uL (0.8-4.8); Lymphocytes % 18.5 %; Mean Corpuscular HGB Conc 29.7 g/dL (30.0-36.0); Mean Corpuscular Hemoglobin 26.6 pg (28.0-34.0); Mean Corpuscular Volume 89.4 fL (80-94); Monocytes # 0.8 10^3/uL (0.2-0.9); Monocytes % 8.5 %; Neutrophils # 5.95 10^3/uL (1.8-7.7); Neutrophils % 66.5 %; Nucleated Red Blood Cells % 0 %; Platelet Count 290 10^3/cmm (130-400); Red Blood Count 3.31 10^6/uL (4.1-5.3); Red Cell Distribution Width 14.4 % (12.1-15.1)
[2021-01-17 10:11] LABS: Blood Urea Nitrogen 45 mg/dL (8-23); Calcium 8.5 mg/dL (8.5-10.5); Carbon Dioxide 31 mmol/L (22-29); Chloride 100 mmol/L (98-107); Glomerular Filtration Rate 23.8 mL/min (90-130); Glucose 146 mg/dL (65-115); Osmolality Calculated 306 mOsm/kg (285-295); Sodium 141 mmol/L (136-145)
[2021-01-17] MEDS: buPROPion SR (12 HR) 150 mg Tablet PO ×2 (10:26→21:52)
[2021-01-17] MEDS: piperacillin-tazobactam 3.375 GM in sodium chloride 0.9% (plus) 50 ML IV ×2 (10:26→21:52)
[2021-01-17 11:04] LABS: Glucose Point of Care 178 mg/dL (70-110)
--- NOTE | 2021-01-17 14:14 | PM.PN ---
Subjective Subjective: Interval history: No acute events overnight. Shortness of breath is improved. WBC is trending down. continue to remain afebrile. His other Vitals and labs have been reviewed. Vitals/I&O/Wt Last Vital Signs Temp 98.4 F 01/17/21 11:20 Pulse 83 01/17/21 11:23 Resp 18 01/17/21 11:20 BP 105/68 01/17/21 11:20 Pulse Ox 99 01/17/21 11:20 01/16/21 01/17/21 01/17/21 22:59 06:59 14:59 Intake Total 530 / 700 240 / 240 Balance 530 / 700 240 / 240 Weight last 48 hrs Weight 62.142 kg Physical Exam Const: COMMON NORMALS: patient oriented x3 HENMT: COMMON NORMALS: normocephalic and atraumatic HEAD & SCALP: normocephalic and atraumatic Resp: COMMON NORMALS: clear to auscultation bilaterally AUSCULTATION: clear to auscultation bilaterally Cardio: COMMON NORMALS: regular rate, regular rhythm, S1 normal heart sound present, S2 normal heart sound present, No gallops present (Cardio), No murmurs present (Cardio), No rub (Cardio) and Peripheral pulses 2+ throughout RATE: regular rate RHYTHM: regular rhythm HEART SOUNDS: S1 normal heart sound present and S2 normal heart sound present PERIPHERAL PULSES: Peripheral pulses 2+ throughout GI: COMMON NORMALS: Normal to inspection, nondistended, normoactive bowel sounds present, Soft to palpation, non-tender, No hepatosplenomegaly present and no masses AUSCULTATION: Yes normoactive bowel sounds PALPATION: Yes Soft to palpation and Yes No hepatosplenomegaly present RECTAL EXAM: Yes deferred Extremity: COMMON NORMALS: no clubbing, cyanosis or edema and no pedal edema Neuro: COMMON NORMALS: patient oriented x3 Data : 01/17/21 09:44 01/17/21 09:44 Micro: Microbiology 01/15/21 17:25 Blood Culture - Preliminary Blood Staphylococcus sp coag neg 01/16/21 21:30 Blood Culture - Preliminary Blood SPECIMEN COLLECTED 01/16/21 21:28 Blood Culture - Preliminary Blood SPECIMEN COLLECTED 01/15/21 19:49 Blood Culture - Preliminary Blood NEGATIVE TO DATE A&P Assessment and plan (1) Pneumonia: Status: Acute (2) Heart failure with reduced ejection fraction: Status: Acute (3) COPD (chronic obstructive pulmonary disease): Status: Acute (4) Type 2 diabetes mellitus: Status: Chronic (5) Hypertension: Status: Chronic (6) Coronary artery disease: Status: Chronic Qualifiers: Associated angina: without angina Coronary Disease-Associated Artery/Lesion type: [place] artery [place] vs. transplanted heart: [place] heart Qualified Code(s): I25.10 - Atherosclerotic heart disease of [place] coronary artery without angina pectoris Additional A&P Information 65-year-old male, half-way resident with past medical history of COPD, CHF, chronic kidney disease stage III-IV, hypertension, diabetes, peripheral vascular disease who is presenting with shortness of breath and hypoxia. CT reveals bilateral airspace disease concerning for possible pneumonia. Acute hypoxic respiratory failure. Mild. Improved with supplemental oxygen and respiratory treatments. Pneumonia. I am not 100% convinced that it is pneumonia. A febrile. Leukocytosis could be explained by possibly receiving steroids. For now we will continue antibiotics: Zosyn and doxycycline. procalcitonin level. Normal Blood cultures: 09/26 GPC: Coagulase-negative staph Follow repeat blood culture: Anemia. Stable. Monitor. CHF. Currently stable. However bibasilar airspace disease could be related to edema. We will check his BNP. We will continue his cardiac medications including furosemide. We will try to avoid fluid overload. Hypertension. Currently well controlled. Continue home medications. Diabetes. Continue home medications and insulin sliding scale. DVT prophylaxis. He is already on dual antiplatelet therapy. Will use BRE hoses. Will consider heparin if he requires prolonged hospitalization. CODE STATUS. Limited code. He does not want cardiac resuscitation. However he is okay with intubation and mechanical ventilation. The plan of care was discussed with the patient. He verbalized understanding and agreement. Attestations Medical Necessity Statement*: Patient needs to be in hospital for management of pneumonia. Coding Level of Care Code Acute Instrument And Control Technician for [facility] Fwd Exam Detailed Diagnoses Pneumonia J18.9 Heart failure with reduced ejection fraction I50.20 COPD (chronic obstructive pulmonary disease) J44.9 Type 2 diabetes mellitus E11.9 Hypertension I10 Coronary artery disease I25.10 Associated angina: without angina Coronary Disease-Associated Artery/Lesion type: [place] artery [place] vs. transplanted heart: [place] heart
[2021-01-17 16:56] LABS: Glucose Point of Care 225 mg/dL (70-110)
[2021-01-17] MEDS: guaiFENesin 600 mg Tablet PO (17:08)
[2021-01-17 20:35] LABS: Glucose Point of Care 180 mg/dL (70-110)
[2021-01-17] MEDS: tamsulosin 0.4 mg Capsule PO (21:52)
[2021-01-17] MEDS: atorvastatin 40 mg Tablet 80 MG PO (21:52)
[2021-01-18] VITALS (8 sets, daily range): BP systolic 111–124; BP diastolic 60–76; PULSE 79–89; RESP 17–22; TEMP 36.6–37; O2SAT 93–100
[2021-01-18 00:03] LABS: Glucose Point of Care 186 mg/dL (70-110)
[2021-01-18 05:52] LABS: Basophils # 0.1 10^3/uL (0.0-0.1); Eosinophils # 0.4 10^3/uL (0.0-0.8); Eosinophils % 4.3 %; Hemoglobin 8.5 g/dL (11.7-16.6); Lymphocytes # 1.5 10^3/uL (0.8-4.8); Lymphocytes % 16.5 %; Mean Corpuscular HGB Conc 29.3 g/dL (30.0-36.0); Mean Corpuscular Hemoglobin 26.2 pg (28.0-34.0); Mean Corpuscular Volume 89.5 fL (80-94); Mean Platelet Volume 10.1 fL (7.4-10.4); Monocytes # 0.9 10^3/uL (0.2-0.9); Monocytes % 9.1 %; Neutrophils # 6.44 10^3/uL (1.8-7.7); Neutrophils % 68.7 %; Nucleated Red Blood Cells % 0 %; Platelet Count 286 10^3/cmm (130-400); Red Blood Count 3.24 10^6/uL (4.1-5.3); Red Cell Distribution Width 14.2 % (12.1-15.1); White Blood Count 9.4 10^3/uL (4.0-10.0)
[2021-01-18] MEDS: pantoprazole DR 40 mg Tablet PO (05:59)
[2021-01-18] MEDS: sucralfate 1 gm Tablet PO ×2 (05:59→08:47)
[2021-01-18] MEDS: FUROsemide 40 mg Tablet PO (05:59)
[2021-01-18 06:11] LABS: Anion Gap 15.1 (5-19); Blood Urea Nitrogen 44 mg/dL (8-23); Calcium 8.3 mg/dL (8.5-10.5); Carbon Dioxide 30 mmol/L (22-29); Chloride 101 mmol/L (98-107); Glomerular Filtration Rate 23.8 mL/min (90-130); Glucose 165 mg/dL (65-115); Osmolality Calculated 309 mOsm/kg (285-295); Potassium 4.1 mmol/L (3.5-5.1); Sodium 142 mmol/L (136-145)
[2021-01-18 06:55] LABS: Glucose Point of Care 172 mg/dL (70-110)
[2021-01-18] MEDS: budesonide 0.5 mg/2 mL Neb INHALATION (08:10)
[2021-01-18] MEDS: ipratropium-albuterol 3 mL Neb INHALATION ×2 (08:10→11:33)
[2021-01-18] MEDS: insulin glargine 100 units/1 mL 15 UNIT SUBCUT (08:47)
[2021-01-18] MEDS: aspirin 81 mg EC Tablet PO (08:48)
[2021-01-18] MEDS: citalopram 20 mg Tablet 10 MG PO (08:48)
[2021-01-18] MEDS: clopidogrel 75 mg Tablet PO (08:48)
[2021-01-18] MEDS: carvedilol 3.125 mg Tablet PO (08:48)
[2021-01-18] MEDS: loratadine 10 mg Tablet PO (08:48)
[2021-01-18] MEDS: buPROPion SR (12 HR) 150 mg Tablet PO (08:48)
[2021-01-18] MEDS: guaiFENesin 600 mg Tablet PO (08:48)
[2021-01-18] MEDS: piperacillin-tazobactam 3.375 GM in sodium chloride 0.9% (plus) 50 ML IV (08:49)
--- NOTE | 2021-01-18 10:18 | PM.DCS ---
Discharge Providers Date of Admission: 01/15/21 21:53 Date of Discharge: January 18, 2021 Attending Provider at Admission: Wesley Coombs Attending Provider at Discharge: Twin White MD Primary Care Provider: Hiram Black DO Diagnoses at Discharge Discharge Diagnosis (1) Pneumonia: Status: Resolved (2) Heart failure with reduced ejection fraction: Status: Resolved (3) COPD (chronic obstructive pulmonary disease): Status: Chronic (4) Type 2 diabetes mellitus: Status: Chronic (5) Hypertension: Status: Chronic (6) Coronary artery disease: Status: Chronic Qualifiers: Associated angina: without angina Coronary Disease-Associated Artery/Lesion type: [place] artery [place] vs. transplanted heart: [place] heart Qualified Code(s): I25.10 - Atherosclerotic heart disease of [place] coronary artery without angina pectoris Reason for Visit Reason for Visit: SOB Hospital Course Hospital Course 65 year old male, alf resident, with past medical history of oxygen dependent COPD, 3 L, diabetes, hypertension, GERD, chronic kidney disease stage III-IV, systolic CHF with EF of 25 to 30%, BPH who is presenting with shortness of breath and cough. He was admitted for the management of pneumonia. He was kept on Zosyn as well as doxycycline while in hospital, he was continued with his heart failure medication. Heart failure with ejection fraction was compensated.procalcitonin level. Normal Blood cultures: 1/ GPC: Coagulase-negative staph. Repeat blood culture was negative, till the time of discharge. Patient shortness of breath has improved, he was at his baseline oxygen requirement, he remained afebrile throughout hospital stay. Leukocytosis was improving.Patient is being discharged on Levofloxacin for additional 7 days.Patient responded well to the above medical management.And is being discharged in stable condition to [facility]. Physical Exam Const: COMMON NORMALS: patient oriented x3 HENMT: COMMON NORMALS: normocephalic and atraumatic HEAD & SCALP: normocephalic and atraumatic Resp: COMMON NORMALS: clear to auscultation bilaterally AUSCULTATION: clear to auscultation bilaterally Cardio: COMMON NORMALS: regular rate, regular rhythm, S1 normal heart sound present, S2 normal heart sound present, No gallops present (Cardio), No murmurs present (Cardio), No rub (Cardio) and Peripheral pulses 2+ throughout RATE: regular rate RHYTHM: regular rhythm HEART SOUNDS: S1 normal heart sound present and S2 normal heart sound present PERIPHERAL PULSES: Peripheral pulses 2+ throughout GI: COMMON NORMALS: Normal to inspection, nondistended, normoactive bowel sounds present, Soft to palpation, non-tender, No hepatosplenomegaly present and no masses AUSCULTATION: Yes normoactive bowel sounds PALPATION: Yes Soft to palpation and Yes No hepatosplenomegaly present RECTAL EXAM: Yes deferred Neuro: COMMON NORMALS: patient oriented x3 Discharge Data Data Completed and Pending: Completed Studies During Hospitalization Category Date Time Status CT chest wo con 7 1250 Urgent Cat Scan 01/15/21 20:52 Completed XR chest 1V [place] ble [id number] Urgent Exams 01/15/21 18:12 Completed Pending at discharge Category Date Time Status Blood Culture Sta t Lab 01/15/21 19:49 Results Blood Culture Sta t Lab 01/16/21 21:30 Results Labs from last 24 hours 01/18/21 01/18/21 01/18/21 06:44 04:56 04:56 WBC 9.4 RBC 3.24 L Hgb 8.5 L Hct 29.0 L MCV 89.5 MCH 26.2 L MCHC 29.3 L RDW 14.2 Plt Count 286 MPV 10.1 Neut % (Auto) 68.7 Lymph % (Auto) 16.5 [place] % (Auto) 9.1 Eos % (Auto) 4.3 Baso % (Auto) 1.0 Neut # (Auto) 6.44 Lymph # (Auto) 1.5 [place] # (Auto) 0.9 Eos # (Auto) 0.4 Baso # (Auto) 0.1 Nucleated RBC % (a uto) 0 Nucleated RBCs # 0.0 Sodium 142 Potassium 4.1 Chloride 101 Carbon Dioxide 30 H Anion Gap 15.1 BUN 44 H Creatinine 2.7 H GFR Calculation 23.8 L Glucose 165 H POC Glucose 172 H Calculated Osmolal ity 309 H Calcium 8.3 L 01/17/21 01/17/21 01/17/21 23:49 20:29 16:51 WBC RBC Hgb Hct MCV MCH MCHC RDW Plt Count MPV Neut % (Auto) Lymph % (Auto) [place] % (Auto) Eos % (Auto) Baso % (Auto) Neut # (Auto) Lymph # (Auto) [place] # (Auto) Eos # (Auto) Baso # (Auto) Nucleated RBC % (a uto) Nucleated RBCs # Sodium Potassium Chloride Carbon Dioxide Anion Gap BUN Creatinine GFR Calculation Glucose POC Glucose 186 H 180 H 225 H Calculated Osmolal ity Calcium 01/17/21 10:59 WBC RBC Hgb Hct MCV MCH MCHC RDW Plt Count MPV Neut % (Auto) Lymph % (Auto) [place] % (Auto) Eos % (Auto) Baso % (Auto) Neut # (Auto) Lymph # (Auto) [place] # (Auto) Eos # (Auto) Baso # (Auto) Nucleated RBC % (a uto) Nucleated RBCs # Sodium Potassium Chloride Carbon Dioxide Anion Gap BUN Creatinine GFR Calculation Glucose POC Glucose 178 H Calculated Osmolal ity Calcium Vitals: Last Vital Signs Temp 97.8 F 01/18/21 08:20 Pulse 87 01/18/21 08:20 Resp 19 H 01/18/21 08:20 BP 124/76 01/18/21 08:20 Pulse Ox 96 01/18/21 08:20 Discharge Plan Discharge Patient Disposition: Home Condition: Stable Prescriptions: New levofloxacin 750 mg tablet 750 mg PO DAILY 7 Days RF: 0 Continued budesonide 0.5 mg/2 mL suspension for nebulization 0.5 mg inhalation BID@ Qty: 120 RF: 6 ipratropium-albuterol 0.5 mg-3 mg(2.5 mg base)/3 mL solution for nebulization 3 ml inhalation QID Qty: 360 RF: 6 Mucinex DM 30-600 mg Tablet Extended Release 12 Hr 1 tab PO BID@ RF: 0 Hair,Skin and Nails 1 mg iron-66.7 mcg-1,000 mcg Tablet 1 tab PO DAILY@ RF: 0 citalopram 20 mg tablet 10 mg PO DAILY@ RF: 0 polyethylene glycol 3350 [Miralax] 17 gram Powder In Packet 17 g PO DAILY@ RF: 0 sucralfate 1 gram Tablet 1 g PO BID@ RF: 0 ferrous sulfate 325 mg (65 mg iron) Tablet 325 mg PO BID@ RF: 0 Pro-Stat AWC 17-100 gram-kcal/30 mL Liquid 1 ea PO BID@ RF: 0 lorazepam 0.5 mg Tablet 0.5 mg PO TID PRN (Reason: Anxiety) RF: 0 insulin lispro [Humalog KwikPen Insulin] 100 unit/mL Insulin Pen See Rx Instructions .ROUTE .COMPLEX RF: 0 Lantus Solostar U-100 Insulin 100 unit/mL (3 mL) Insulin Pen 15 unit SUBCUT DAILY@0800 RF: 0 furosemide [Lasix] 40 mg tablet 40 mg PO BID@, RF: 0 bupropion HCl [Wellbutrin SR] 150 mg Tablet Sustained-Release 12 Hr 150 mg PO Q12H RF: 0 clopidogrel [Plavix] 75 mg Tablet 75 mg PO DAILY@ RF: 0 aspirin 81 mg Tablet,Delayed Release (Dr/Ec) 81 mg PO DAILY@ RF: 0 carvedilol 3.125 mg Tablet 3.125 mg PO BID@ RF: 0 tamsulosin 0.4 mg Capsule 0.4 mg PO DAILY@2099 RF: 0 loratadine 10 mg Tablet 10 mg PO DAILY@ RF: 0 rosuvastatin [Crestor] 20 mg Tablet 20 mg PO DAILY@ RF: 0 magnesium L-lactate [Magtab] 84 mg Tablet Extended Release 84 mg PO DAILY@ RF: 0 TwoCal HN 0.08-2 gram-kcal/mL Liquid 1 ea PO BID@, RF: 0 Silvadene 1 % Cream 1 applic TOPICAL BID RF: 0 pantoprazole 40 mg Tablet,Delayed Release (Dr/Ec) 40 mg PO BID@ RF: 0 Discharge Orders: Discharge Order (Routine); Ordered 01/18/21 Ordered By: Twin White Referrals: Hiram Black DO [Primary Care Provider] - 7-10 days Discharge Diet: Diabetic Discharge Activity: Resume usual activity Patient Instructions: Levofloxacin (By mouth), Chronic Obstructive Pulmonary Disease (GEN), COPD Stoplight, Opioid Safety Discharge Attestations Time Spent in Discharge Care*: less than 30 min Specific Discharge Activities: educating patient, educating and/or supporting family/caregiver, discussing with disease case manager/social workers/dc planners, documenting/other paperwork and evaluating patient/reviewing data Status at Discharge: Cognitive status at discharge: cognitively intact, Behavioral status at discharge: cooperative, Overall status at discharge: patient is back to baseline Quality Metrics Clinical Quality Measures During this hospital stay, did patient experience: None Coding Level of Care Code Acute Chg DC note Exam Detailed Diagnoses Pneumonia J18.9 Heart failure with reduced ejection fraction I50.20 COPD (chronic obstructive pulmonary disease) J44.9 Type 2 diabetes mellitus E11.9 Hypertension I10 Coronary artery disease I25.10 Associated angina: without angina Coronary Disease-Associated Artery/Lesion type: [place] artery [place] vs. transplanted heart: [place] heart
[2021-01-18 11:09] LABS: Glucose Point of Care 257 mg/dL (70-110)
--- NOTE | 2021-01-18 11:12 | PC.SOCIAL ---
IMM update IMM pg 2. updated with patient, verbalized an understanding. Copy provided. Initialed, dated, and timed.
--- NOTE | 2021-01-18 12:02 | PC.NURSE ---
[facility] REPORT CALLED TO GONZALO VEGA AT [facility]
--- NOTE | 2021-01-18 12:24 | PC.OT ---
OT note: Attempted x2. First attempt pt sleeping, second attempt pt working with nursing. Will attempt later as able.
== END 2021-01-18 14:22 | disposition skilled nursing facility (03) | DRG 193 ==
LOC: ER 18:50 → MEDSURG 22:06
PROVIDERS: Admitting Provider Internal Medicine; Emergency Provider Family Medicine; PCP Internal Medicine; Visit Provider Internal Medicine
DX: J18.9 Pneumonia, unspecified organism (principal); J96.01 Acute respiratory failure with hypoxia; J44.0 Chronic obstructive pulmonary disease with (acute) lower respiratory infection; I13.0 Hypertensive heart and chronic kidney disease with heart failure and stage 1 through stage 4 chronic kidney disease, or unspecified chronic kidney disease; N18.4 Chronic kidney disease, stage 4 (severe); I50.22 Chronic systolic (congestive) heart failure; Z99.81 Dependence on supplemental oxygen; E11.22 Type 2 diabetes mellitus with diabetic chronic kidney disease; K21.9 Gastro-esophageal reflux disease without esophagitis; Z87.01 Personal history of pneumonia (recurrent); F41.9 Anxiety disorder, unspecified; N40.1 Benign prostatic hyperplasia with lower urinary tract symptoms; N39.498 Other specified urinary incontinence; R33.8 Other retention of urine; R39.15 Urgency of urination; I25.10 Atherosclerotic heart disease of native coronary artery without angina pectoris; Z95.5 Presence of coronary angioplasty implant and graft; Z86.16 Personal history of COVID-19; F32.9 Major depressive disorder, single episode, unspecified; E11.51 Type 2 diabetes mellitus with diabetic peripheral angiopathy without gangrene; Z89.512 Acquired absence of left leg below knee; Z89.511 Acquired absence of right leg below knee; F17.210 Nicotine dependence, cigarettes, uncomplicated; D63.1 Anemia in chronic kidney disease; Z79.4 Long term (current) use of insulin; Z79.02 Long term (current) use of antithrombotics/antiplatelets; Z79.82 Long term (current) use of aspirin
CPT/HCPCS: 36415; 36416; 71045; 71250; 80048; 80053; 82962; 83605; 83735; 83880; 84145; 85025; 87040; 87205; 87426; 87804; 93005; 94640; 94664; 96365; 96372; 97110; 97166; 97535; 99285; J1815 ×2; J2543; J7626